=== PATIENT | male | born 1960 | race African-American/Black ===

== ENCOUNTER 2020-02-09 08:52 | Inpatient (IN) | payer OTHER ==
[~2020-02-09] VITALS: Ht 193 cm; Wt 62.9 kg
--- NOTE | 2020-02-09 09:26 | REP ---
Clinical: Altered mental status. Comparison: None Findings: Age-related atrophy and microvascular ischemic changes are appreciated. The ventricles and sulci are symmetric. Quezada-white differentiation is maintained. There is no evidence for acute intracranial hemorrhage, mass/mass effect, pathology or infarction. No extra-axial fluid collection. Calvarium is intact. Paranasal sinuses and mastoid air cells are clear. Impression: Age related atrophy and microvascular ischemic changes. No acute intracranial hemorrhage, infarction, or mass/mass effect. Electronically Signed by Corby Hilton MD 02/09/2020 09:17 A
--- NOTE | 2020-02-09 10:02 | REP ---
Clinical: Altered mental status . Comparison: 03/13/2015 . Findings: The mediastinum and cardiac silhouette are stable and within normal limits for portable technique. The lung pritchard demonstrate chronic emphysematous changes without acute consolidation, effusion, or pneumothorax. Skeletal structures are intact. Impression: Chronic advanced COPD/emphysematous changes. No acute cardiopulmonary process appreciated. Electronically Signed by Corby Hilton MD 02/09/2020 09:54 A
[2020-02-09 10:06] LABS: BASO # 0.1 10^3/uL (0.0-0.2); BASO % 0.5 % (0.0-1.0); EOS % 0.1 % (0.0-3.0); HEMATOCRIT 49.3 % (42.0-52.0); HEMOGLOBIN 16.9 g/dl (13.5-17.5); LYMPH # 0.9 10^3/uL (1.5-5.0); MEAN CORPUSCULAR HEMOGLOBIN 31.4 pg (27.0-33.0); MEAN CORPUSCULAR HGB CONC 34.3 g/dl (32.0-36.5); MEAN CORPUSCULAR VOLUME 91.6 fl (80.0-96.0); MONO # 0.7 10^3/uL (0.0-0.8); MONO % 7.6 % (0.0-5.0); NEUTROPHILS # 7.8 10^3/uL (1.5-8.5); NEUTROPHILS % 82.3 % (36.0-66.0); PLATELET COUNT, AUTOMATED 291 10^3/uL (150-450); RED BLOOD COUNT 5.38 10^6/uL (4.30-6.10); WHITE BLOOD COUNT 9.5 10^3/uL (4.0-10.0)
[2020-02-09 10:43] LABS: ACETAMINOPHEN LEVEL < 2.0 UG/ML (10.0-30.0); ALBUMIN 3.9 GM/DL (3.2-5.2); ALT/SGPT 56 U/L (12-78); BILIRUBIN,DIRECT 0.2 MG/DL (0.0-0.2); BILIRUBIN,TOTAL 0.6 MG/DL (0.2-1.0); CK-MB VALUE MASS 3.9 NG/ML (<3.6); CPK CREATINE PHOSPHOKINASE 70 U/L (39-308); ETHYL ALCOHOL (ETHANOL) 0.004 % (0.000-0.010); MB/CK RELATIVE INDEX 5.57 (< OR =4); SALICYLATE LEVEL 6.6 MG/DL (5.0-30.0); TOTAL PROTEIN 8.4 GM/DL (6.4-8.2); TROPONIN I 0.04 NG/ML (< 0.10)
[2020-02-09] MEDS ORDERED: NS 500 ML IV ONE (10:45)
[2020-02-09] MEDS ORDERED: LIDOCAINE 2% 5ML JELLY UROJET TOP ONE (11:15)
[2020-02-09] MEDS ORDERED: LIDOCAINE 2% 5ML JELLY UROJET As Ordered ONE (11:16)
[2020-02-09] MEDS ORDERED: FERR325T3 PO (12:05)
[2020-02-09] MEDS ORDERED: ASMA220A IN (12:05)
[2020-02-09] MEDS ORDERED: SPIR-10 PO (12:05)
[2020-02-09] MEDS ORDERED: OMEP-218 PO (12:05)
[2020-02-09] MEDS ORDERED: STIO1AER IN (12:05)
[2020-02-09] MEDS ORDERED: AMLO10TA5 PO (12:05)
[2020-02-09] MEDS ORDERED: VENTAER INH (12:05)
[2020-02-09] MEDS ORDERED: ACETAMINOPHEN TAB 650MG DOSE (2X325MG) PO PRN (12:15)
[2020-02-09 12:21] LABS: AMPHETAMINES LEVEL URINE NEGATIVE (NEGATIVE); BARBITURATES URINE NEGATIVE (NEGATIVE); BENZODIAZEPINES URINE NEGATIVE (NEGATIVE); CANNABINOIDS URINE POSITIVE (NEGATIVE); COCAINE METABOLITE URINE NEGATIVE (NEGATIVE); METHADONE URINE NEGATIVE (NEGATIVE); OPIATES URINE NEGATIVE (NEGATIVE); PHENCYCLIDINE URINE NEGATIVE (NEGATIVE)
[2020-02-09] MEDS ORDERED: ALBUTEROL 90 MCG/ACT 8GM HFA INHALER INH PRN (12:45)
[2020-02-09] MEDS: D5W/0.9% SODIUM CHLORIDE 1,000 ML IV SCH ×2 (13:06→20:59)
--- NOTE | 2020-02-09 13:34 | HPE ---
DATE OF ADMISSION: 02/09/2020 TIME: Approximately 12:00 p.m. CHIEF COMPLAINT: Altered mental status. HISTORY OF PRESENT ILLNESS: Mr. Mock is a 59-year-old gentleman who has a history of chronic obstructive pulmonary disease (COPD) with chronic bronchitis, hypertension, family history of diabetes. The patient is presently has acute metabolic encephalopathy associated with acute kidney injury. He is unable to provide any adequate history. I attempted to contact his , who is listed in electronic medical record for contacts, however, I have been unsuccessful. History is obtained from Dr. Hayes. Apparently, the patient has been having decrease in mental status, decrease in oral intake for the past several days, presented to the emergency room. He was found to be hemodynamically stable and afebrile. He has a chronic nonproductive cough. Chest x-ray was done in the emergency department and it showed chronic obstructive pulmonary disease (COPD) changes, no evidence of acute infiltrate. The patient underwent a CT scan of the head, which is also unremarkable. His BUN was measured and found to be 45 with creatinine of 1.6. The remainder of his laboratories are otherwise unremarkable. TSH is in the normal range. Initial troponin and CPK levels were normal. The patient's EKG showed a normal sinus rhythm with nonspecific T wave changes. ALLERGIES: No known drug allergies. HOME MEDICATIONS: Based on reconciliation list: - albuterol - Norvasc - ferrous sulfate - Asmanex - omeprazole - aldactone - Spiriva PAST MEDICAL HISTORY: Notable for: 1. Pneumonia in the past. 2. Hypertension. 3. Chronic obstructive pulmonary disease (COPD). 4. Chronic bronchitis. PAST SURGICAL HISTORY: Unknown. FAMILY HISTORY: Relevant for diabetes. REVIEW OF SYSTEMS: Could not be obtained secondary to the patient's acute toxic metabolic encephalopathy. PHYSICAL EXAMINATION: VITAL SIGNS: The patient's temperature is 97.7 degrees Fahrenheit. Blood pressure 145/101, oxygen saturation 95% on room air. Pulse is 85 and regular. GENERAL: The patient is oriented to self only. He is unable to provide any adequate history. He is an elderly gentleman who appears his stated age. He has a nonproductive cough. His breathing is nonlabored. His head is atraumatic. Pupils are symmetric and reactive to light and accommodation. No scleral icterus. Mouth shows dry oral mucosa. NECK: Supple. No jugular venous distention (JVD). No palpable lymphadenopathy. LUNGS: Appreciated bilaterally. Distant lung sounds consistent with chest x-ray findings with COPD. HEART: S1, S2. No audible murmurs, rubs or gallops. ABDOMEN: Scaphoid. Nontender, nondistended. Active bowel sounds. EXTREMITIES: No cyanosis, clubbing or edema. NEUROLOGIC: The patient is acutely encephalopathic. He withdraws all four extremities to noxious stimuli. RELEVANT LABORATORIES/DIAGNOSTICS: CT scan of the head without contrast is negative. Chest x-ray shows chronic changes of chronic obstructive pulmonary disease (COPD). No acute changes are noted. INR is 1, white count 9.5, hemoglobin 16, hematocrit 49, platelet count 291. Lactic acid is 1.9. Sodium 140, potassium 4.1, chloride 106, bicarbonate 24, BUN 45, creatinine 1.6, glucose 118, initial troponin and CPK normal, TSH is normal at 1.17. Ammonia level is 13. Total bilirubin 0.6, AST 29, ALT 66. Urinalysis did not show any evidence of infection. Urine drug screen is positive for marijuana. Salicylates, as well as acetaminophen level and alcohol levels are normal. IMPRESSION: 1. Altered mental status secondary to toxic metabolic encephalopathy associated with acute kidney injury. 2. Acute kidney injury, likely from dehydration. 3. Chronic obstructive pulmonary disease (COPD), which is compensated. 4. Marijuana use. 5. Hypertension. PLAN: The patient will be admitted to an observation status. He will be maintained a FULL CODE until we can clarify this with his . He will be hydrated with intravenous fluids. He will be kept nothing by mouth until his mental status improves. Blood cultures have been drawn and are pending in the emergency department. We will await the results of this. At this point in time, I do not think he warrants any antibiotics. The patient will be continued on his home blood pressure medications with the exception of his aldactone. The patient will be placed on heparin subcutaneously. We will repeat laboratories in the morning.
[2020-02-09 13:45] VITALS: BP 131/91
[2020-02-09] MEDS: FERROUS SULFATE 325MG TAB PO SCH ×2 (14:41→21:00)
[2020-02-09 16:00] VITALS: BP 132/87
[2020-02-09] MEDS: amLODIPine 10 MG TAB PO SCH (17:57)
[2020-02-09] MEDS: HEPARIN SOD (PORCINE) 5000UNITS/ML VIAL (J1644 PER 1000UNITS) SC SCH (20:58)
[2020-02-09] MEDS: DOCUSATE SODIUM 100 MG CAP PO SCH (21:00)
[2020-02-09 22:00] VITALS: BP 136/87
--- NOTE | 2020-02-09 22:27 | ECGEPIP ---
[facility] - ED Test Date: 2020-02-09 Pat Name: DELIA RENNER Department: Room: - Gender: Male Direct Support Professional Home Health: GERARD : 1960 Requested By: Ty Bai Order Number: [id number] Reading MD: Ty Hayes Measurements Intervals [place] Rate: 93 P: 85 AL: 148 QRS: 72 QRSD: 81 T: 90 QT: 354 QTc: 442 Interpretive Statements SINUS RHYTHM WITH OCCASIONAL VENTRICULAR PREMATURE COMPLEXES LEFT ATRIAL ENLARGEMENT MODERATE T-WAVE ABNORMALITY, CONSIDER ANTERIOR ISCHEMIA Electronically Signed on 02-09-2020 22:26:56 EDT by Ty Hayes
[2020-02-10] VITALS (7 sets, daily range): BP systolic 106–165; BP diastolic 52–97
[2020-02-10] MEDS: D5W/0.9% SODIUM CHLORIDE 1,000 ML IV SCH (05:01)
[2020-02-10 06:27] LABS: HEMATOCRIT 43.9 % (42.0-52.0); MEAN CORPUSCULAR HEMOGLOBIN 31.6 pg (27.0-33.0); MEAN CORPUSCULAR HGB CONC 33.5 g/dl (32.0-36.5); MEAN CORPUSCULAR VOLUME 94.4 fl (80.0-96.0); PLATELET COUNT, AUTOMATED 221 10^3/uL (150-450); RED BLOOD COUNT 4.65 10^6/uL (4.30-6.10); WHITE BLOOD COUNT 7.5 10^3/uL (4.0-10.0)
[2020-02-10 06:28] LABS: HEMOGLOBIN 14.7 g/dl (13.5-17.5)
[2020-02-10 06:43] LABS: ALBUMIN 3.1 GM/DL (3.2-5.2); ALT/SGPT 35 U/L (12-78); BILIRUBIN,TOTAL 0.8 MG/DL (0.2-1.0); BLOOD UREA NITROGEN 40 MG/DL (7-18); CALCIUM LEVEL 9.8 MG/DL (8.8-10.2); CARBON DIOXIDE LEVEL 24 MEQ/L (21-32); CHLORIDE LEVEL 113 MEQ/L (98-107); CREATININE FOR GFR 1.36 MG/DL (0.70-1.30); GLOMERULAR FILTRATION RATE > 60.0 (>49); GLUCOSE, FASTING 129 MG/DL (70-100); POTASSIUM SERUM 3.2 MEQ/L (3.5-5.1); SODIUM LEVEL 145 MEQ/L (136-145); TOTAL PROTEIN 7.4 GM/DL (6.4-8.2)
[2020-02-10] MEDS: amLODIPine 10 MG TAB PO SCH (08:51)
[2020-02-10] MEDS: FERROUS SULFATE 325MG TAB PO SCH ×2 (08:51→21:00)
[2020-02-10] MEDS: DOCUSATE SODIUM 100 MG CAP PO SCH ×2 (08:51→21:00)
[2020-02-10] MEDS: HEPARIN SOD (PORCINE) 5000UNITS/ML VIAL (J1644 PER 1000UNITS) SC SCH (09:17)
[2020-02-10] MEDS: KCL 20MEQ IN D5/NS 1000ML 1,000 ML IV SCH ×2 (09:22→20:23)
[2020-02-10 09:39] LABS: MAGNESIUM LEVEL 2.2 MG/DL (1.8-2.4); PHOSPHORUS LEVEL 1.9 MG/DL (2.5-4.9)
[2020-02-10] MEDS ORDERED: ACETAMINOPHEN *IV* 650 MG in IV 1 EA IV ONE (13:00)
--- NOTE | 2020-02-10 13:00 | IPNPDOC ---
Subjective Date Seen The patient was seen on 02/10/20. Subjective Chief Complaint/HPI D/w RN patient remains encephalopathic Assessment /Plan Assessment # Acute toxic metabolic encephalopathy - MRI brain to r/o stroke, if negative then will need LP and EEG to r/o non- convulsive status epilepticus - CT head done yesterday w/o acute pathology - stop hep sq for now - UDS + for THC - check folate, b12 and thiamine levels - IV thiamine daily - b.cx no growth, UA negative - no cx indicated - aspiration precautions # WHITLEY/CKD stage 2 with acute dehydration # Hypokalemia - continue IVF with KCL, creatinine + BUN slowly improving - BMP in am - Mag level normal # Chronic alcoholism - no sedatives until MS improves # COPD with chronic bronchitis - CXR normal, afebrile - d/w has not been out of the home for several weeks # DVT prophylaxis - Sebastián Spoke with Pati @ [phone] Plan/VTE VTE Prophylaxis Ordered?: Yes VTE Exclusion Mechanical Proph: N/A:VTE Prophy Ordered VTE Exclusion Pharmacological: Other (holding for possible LP in am) VS, I&O, 24H, Fishbone Vital Signs/I&O Vital Signs Date Time Temp Pulse Resp B/P (MAP) Pulse Ox O2 Delivery O2 Flow Rate FiO2 02/10/20 06:00 97.2 91 28 119/52 (74) 99 Room Air I&O- Last 24 Hours up to 6 AM 02/10/20 06:00 Intake Total 2580 ml Output Total 200 ml Balance 2380 ml Laboratory Data 24H LABS Laboratory Tests 2 02/09/20 13:14: Ammonia < 10 02/10/20 05:24: Nucleated Red Blood Cells % (auto) 0.4H, Anion Gap 8, Glomerular Filtration Rate > 60.0, Calcium Level 9.8, Phosphorus Level 1.9L, Magnesium Level 2.2, Total Bilirubin 0.8, Aspartate Amino Transf (AST/SGOT) 19, Alanine Aminotransferase (ALT/SGPT) 35, Alkaline Phosphatase 72, Total Protein 7.4, Albumin 3.1#L, [place] min/Globulin Ratio 0.72L CBC/BMP Laboratory Tests 02/10/20 05:24 Microbiology Microbiology 02/09/20 Blood Culture - Preliminary, Resulted No growth after 24 hours . All specim... 02/09/20 Blood Culture - Preliminary, Resulted No growth after 24 hours . All specim... BOB ZAFAR MD Feb 10, 2020 13:00
[2020-02-10 13:10] LABS: HEMATOCRIT 43.3 % (42.0-52.0)
--- NOTE | 2020-02-10 13:20 | REP ---
RIGHT LOWER LEG: AP and lateral views of the right lower leg are performed. Osseous structures are intact. No acute fracture or dislocation. Diffuse vascular calcifications are seen in the soft tissues. No metallic foreign body is seen in the right lower leg. Electronically Signed by Favio Quezada MD 02/10/2020 04:55 P
[2020-02-10] MEDS: THIAMINE 200MG/2ML VIAL (J3411 PER 100MG) IV SCH (16:24)
--- NOTE | 2020-02-10 16:43 | REP ---
MRI brain without contrast: History: Altered mental status. Rule out stroke. Comparison CT study of the brain is from the previous day February 09, 2020. Technique: Axial and sagittal imaging planes are utilized for T1 and T2-weighted scans. Sequences include spin-echo, fast spin echo, FLAIR, and diffusion weighted sequences. MRI findings: No bony calvarial lesion is seen. Craniocervical junction and upper cervical cord are normal in appearance. There is no evidence of intracranial hemorrhage or mass. There is generalized volume loss. Diffusion weighted scans demonstrate several punctate foci of restricted diffusion scattered bilaterally above and below the tentorium consistent with acute ischemic changes. These are noted in the frontal lobes bilaterally, the occipital lobes bilaterally, the left posterior inferior temporal lobe, and the left cerebellar hemisphere. There is an equivocal focus of restricted diffusion in the left cerebral peduncle. There are small vessel changes in the periventricular white matter. No extra-axial fluid collection or midline shift is seen. Impression: Multiple punctate foci of restricted diffusion scattered above and below the tentorium bilaterally consistent with foci of acute ischemia. Question embolic issue. No hemorrhage seen. Electronically Signed by George Savage MD 02/10/2020 04:59 P
[2020-02-10] MEDS: ASPIRIN 300 MG SUPP PR SCH (18:25)
--- NOTE | 2020-02-10 18:31 | REPVR ---
PROCEDURE INFORMATION: Exam: US Duplex Bilateral Extracranial Arteries Exam date and time: 02/10/2020 6:17 PM Age: 59 years old Clinical indication: Altered mental status/memory loss; Other: Acute stroke TECHNIQUE: Imaging protocol: Real-time Duplex ultrasound scan of the bilateral carotid and vertebral arteries combining ma scale, color Doppler and spectral waveform analysis. Bilateral exam. COMPARISON: No relevant prior studies available. FINDINGS: Right common carotid artery: Peak systolic velocity is 78 cm/s. No occlusion or stenosis. Waveforms are normal. Right internal carotid artery: Peak systolic velocity is 87 cm/s. No occlusion or stenosis. Waveforms are normal. Right ICA/CCA ratio: 2.6 Right external carotid artery: No stenosis in the origin. Right vertebral artery: Not visualized. Left common carotid artery: Peak systolic velocity is 78 cm/s. No occlusion or stenosis. Waveforms are normal. Left internal carotid artery: Peak systolic velocity is 74 cm/s. No occlusion or stenosis. Waveforms are normal. Left ICA/CCA ratio: 1.8 Left external carotid artery: Not visualized. Left vertebral artery: Unremarkable. Antegrade flow. IMPRESSION: Although there is extensive calcified and noncalcified atheromatous plaque in both common carotid arteries, carotid bulbs extending into the internal carotid arteries, there is no significant stenosis of the internal carotid arteries. There is a pipe out worker's note that the examination is quite limited due to patient motion. REFERENCES: Carotid Stenosis Reference using SRU criteria: Mild: less than 50% stenosis. ICA PSV is less than 125 cm/second and plaque or intimal thickening is visible. Moderate: 50-69% stenosis. ICA PSV is 125 to 230 cm/second and plaque is visible. Severe: 70-94% stenosis. ICA PSV is more than 230 cm/second and visible plaque and lumen narrowing are seen. Near occlusion: 95-99% stenosis. ICA PSV is variable and significant plaque and luminal narrowing are seen. Occluded: 100% stenosis. No flow identified. Electronically signed by: Yeni Maciel On 02/10/2020 18:31:03 PM
[2020-02-10] MEDS: HEPARIN SOD (PORCINE) 5000UNITS/ML VIAL (J1644 PER 1000UNITS) SQ SCH (18:48)
[2020-02-11] VITALS: BP 133/88
[2020-02-11 02:00] VITALS: BP 155/93
[2020-02-11] MEDS: HEPARIN SOD (PORCINE) 5000UNITS/ML VIAL (J1644 PER 1000UNITS) SQ SCH ×2 (03:06→16:54)
[2020-02-11 04:00] VITALS: BP 155/93
[2020-02-11] MEDS: KCL 20MEQ IN D5/NS 1000ML 1,000 ML IV SCH (04:11)
[2020-02-11 06:00] VITALS: BP 153/93
[2020-02-11 06:45] LABS: HEMATOCRIT 42.2 % (42.0-52.0); HEMOGLOBIN 13.7 g/dl (13.5-17.5); MEAN CORPUSCULAR HEMOGLOBIN 31.5 pg (27.0-33.0); MEAN CORPUSCULAR HGB CONC 32.5 g/dl (32.0-36.5); PLATELET COUNT, AUTOMATED 187 10^3/uL (150-450); RED BLOOD COUNT 4.35 10^6/uL (4.30-6.10); WHITE BLOOD COUNT 9.7 10^3/uL (4.0-10.0)
[2020-02-11 07:16] LABS: BLOOD UREA NITROGEN 28 MG/DL (7-18); CALCIUM LEVEL 9.3 MG/DL (8.8-10.2); CARBON DIOXIDE LEVEL 24 MEQ/L (21-32); CHLORIDE LEVEL 124 MEQ/L (98-107); CHOLESTEROL LEVEL 87 MG/DL (<200); GLOMERULAR FILTRATION RATE > 60.0 (>49); GLUCOSE, FASTING 118 MG/DL (70-100); HDL CHOLESTEROL 50 MG/DL (>40); LDL CHOLESTEROL 27 MG/DL (<100); NON-HDL-C 37 MG/DL; POTASSIUM SERUM 3.8 MEQ/L (3.5-5.1); SODIUM LEVEL 155 MEQ/L (136-145); TRIGLYCERIDES LEVEL 51 MG/DL (<150)
[2020-02-11] MEDS: DOCUSATE SODIUM 100 MG CAP PO SCH ×2 (09:00→21:00)
[2020-02-11] MEDS: ASPIRIN 300 MG SUPP PR SCH (11:11)
[2020-02-11] MEDS: KCL 20MEQ IN D5W 1000ML 1,000 ML IV SCH ×2 (11:11→22:17)
[2020-02-11] MEDS: THIAMINE 200MG/2ML VIAL (J3411 PER 100MG) IV SCH (11:11)
[2020-02-11] MEDS: FERROUS SULFATE 325MG TAB PO SCH ×2 (11:11→21:00)
[2020-02-11] MEDS: amLODIPine 10 MG TAB PO SCH (11:12)
--- NOTE | 2020-02-11 12:37 | IPNPDOC ---
Subjective Date Seen The patient was seen on 02/11/20. Subjective Chief Complaint/HPI Follows some simple commands this morning, like squeezing my hands b/l and moving his feet. Noted to be dragging left foot when working with PT this morning, ambulated 5 feet Assessment /Plan Assessment # Acute metabolic encephalopathy 2/2 bihemispheric Acute CVAs # Acute CVAs - MRI brain results reviewed, carotids are normal, MRA and Echo pending, can consider ANGELINA if Echo non-diagnostic - Case d/w neurologist Dr. Joiner. Due to amount of infarcts and territories involved (both posterior + anterior circulation) can consider starting anticoagulation - seen by speech and placed on NTL diet - PT/OT, will likely need rehab placement - change to oral asa - UDS + for THC - check folate, b12 and thiamine levels - IV thiamine daily - b.cx no growth, UA negative - no cx indicated - aspiration precautions # WHITLEY/CKD stage 2 with acute dehydration # Hypokalemia # Hypernatremia - change to D5W at 100 ml/hr, repeat bmp in am - hypokalemia has resolved - bun + creat are improved # Chronic alcoholism - no sedatives until MS improves # COPD with chronic bronchitis - CXR normal, afebrile - d/w has not been out of the home for several weeks # DVT prophylaxis - TEDs Dispo: Will need rehab placement at discharge Pati @ [phone], updated on 02/10/2019 Plan/VTE VTE Prophylaxis Ordered?: Yes VTE Exclusion Mechanical Proph: N/A:VTE Prophy Ordered VTE Exclusion Pharmacological: Other (holding for possible LP in am) VS, I&O, 24H, [facility] Vital Signs/I&O Vital Signs Date Time Temp Pulse Resp B/P (MAP) Pulse Ox O2 Delivery O2 Flow Rate FiO2 02/11/20 11:12 78 153/93 02/11/20 06:00 97.5 24 98 Room Air I&O- Last 24 Hours up to 6 AM 02/11/20 06:00 Intake Total 440 ml Output Total 750 ml Balance -310 ml Laboratory Data 24H LABS Laboratory Tests 2 02/10/20 12:51: Vitamin B12 Level > 2000H 02/11/20 06:13: Nucleated Red Blood Cells % (auto) 0.3H, Anion Gap 7L, Glomerular Filtration Rate > 60.0, Calcium Level 9.3, Triglycerides Level 51, Total Cholesterol 87, LDL Cholesterol 27, Non-HDL Cholesterol (LDL + VLDL) 37, Total HDL Cholesterol 50, Cholesterol/HDL Ratio 1.740 CBC/BMP Laboratory Tests 02/10/20 12:51 02/11/20 06:13 Microbiology Microbiology 02/09/20 Blood Culture - Preliminary, Resulted No Growth after 48 hours. All Specime... 02/09/20 Blood Culture - Preliminary, Resulted No Growth after 48 hours. All Specime... BOB ZAFAR MD Feb 11, 2020 12:15
[2020-02-11] MEDS ORDERED: LORazepam 2 MG/ML VIAL (J2060) IV STA (13:59)
[2020-02-11] MEDS ORDERED: LORazepam 2 MG/ML VIAL (J2060) As Ordered ONE (14:06)
--- NOTE | 2020-02-11 17:58 | REP ---
MR angiography the brain without contrast: History: Acute CVA. Comparison brain MR angiography 02/10/2020. Technique: 3-D [id number] MR angiography of the brain is acquired in the usual fashion and maximal intensity projection images were generated in rotational format about the vertical and horizontal axes. In addition, source axial T1-weighted images are viewed in cine mode. MR angiographic findings: The distal vertebral arteries are poorly seen and appear small. A short segment of basilar artery is visualized. Otherwise basilar artery does not show flow signal. There is some flow signal in the posterior cerebral and superior cerebellar vessels however this appears diminished. Findings are consistent with vertebral basilar insufficiency. The distal internal carotid arteries are patent and unremarkable. The anterior middle cerebral arteries appear patent. There is no evidence of sandoval aneurysm or arteriovenous malformation. There is some motion degradation of image quality. Impression: Vertebral basilar insufficiency with very poor visualization of flow signal in a short segment of basilar artery only. No flow signal is seen in the distal vertebral arteries. The posterior communicating arteries are patent and posterior circulation shows diminished flow but bilateral patency. Electronically Signed by George Savage MD 02/11/2020 08:46 P
[2020-02-11 18:00] VITALS: BP 110/72
[2020-02-11 22:00] VITALS: BP 150/84
[2020-02-12] MEDS: HEPARIN SOD (PORCINE) 5000UNITS/ML VIAL (J1644 PER 1000UNITS) SQ SCH (05:33)
[2020-02-12 06:00] VITALS: BP 130/86
[2020-02-12 06:39] LABS: BLOOD UREA NITROGEN 22 MG/DL (7-18); CALCIUM LEVEL 9.6 MG/DL (8.8-10.2); CARBON DIOXIDE LEVEL 22 MEQ/L (21-32); CHLORIDE LEVEL 123 MEQ/L (98-107); CREATININE FOR GFR 1.01 MG/DL (0.70-1.30); GLOMERULAR FILTRATION RATE > 60.0 (>49); GLUCOSE, FASTING 124 MG/DL (70-100); POTASSIUM SERUM 3.5 MEQ/L (3.5-5.1); SODIUM LEVEL 151 MEQ/L (136-145)
[2020-02-12] MEDS ORDERED: ASPIRIN 325 MG TAB PO SCH (09:00)
[2020-02-12] MEDS: THIAMINE 200MG/2ML VIAL (J3411 PER 100MG) IV SCH (09:03)
[2020-02-12] MEDS: FERROUS SULFATE 325MG TAB PO SCH ×3 (09:09→20:50)
[2020-02-12] MEDS: DOCUSATE SODIUM 100 MG CAP PO SCH ×3 (09:09→20:50)
[2020-02-12 10:00] VITALS: BP 149/97
--- NOTE | 2020-02-12 10:02 | IPNPDOC ---
Subjective Date Seen The patient was seen on 02/12/20. Subjective Chief Complaint/HPI Zach is afebrile. He's encephalopathic. Objective Physical Examination General Exam: Positive: No Acute Distress, Other (remains encephalopathic) Eye Exam: Negative: Sclera icteric ENT Exam: Positive: Other ENT (mucous membranes dry) Neck Exam: Negative: Supple Chest Exam: Positive: Clear to auscultation Heart Exam: Positive: Rate Normal Telemetry: Positive: No significant arrhythmia Abdomen Exam: Positive: Soft Male Exam: Negative: Edema Extremity Exam: Negative: Clubbing, Cyanosis, Edema Skin Exam: Negative: Rash Neuro Exam: Positive: Normal Speech Psych Exam: Negative: Mental status NL Assessment /Plan Assessment # Acute metabolic encephalopathy 2/2 bihemispheric Acute CVAs 2/2 vert ebrobasilar insufficiency noted on MRA brain # Acute CVAs # Vertebrobasilar insufficiency - MRI brain results reviewed, carotids are normal, Echo pending - Case d/w neurologist Dr. Joiner. Due to amount of infarcts and territories involved (both posterior + anterior circulation) will start eliquis 5 mg bid - seen by speech and placed on NTL diet - PT/OT following, recommending rehab - UDS + for THC - folate nl (562), b12 (>2000), thiamine level pending - IV thiamine daily x 5 days - b.cx no growth, UA negative, no cx indicated - aspiration precautions # WHITLEY/CKD stage 2 with acute dehydration # Hypokalemia # Hypernatremia - change to D5W at 100 ml/hr, Sodium level improving - hypokalemia has resolved # Chronic alcoholism - no sedatives until MS improves # COPD with chronic bronchitis - CXR normal, afebrile - d/w has not been out of the home for several weeks # DVT prophylaxis - TEDs - eliquis bid Dispo: Will need rehab placement at discharge Pati @ [phone], updated on 02/11/2019 @ 930am Plan/VTE VTE Prophylaxis Ordered?: Yes VTE Exclusion Mechanical Proph: N/A:VTE Prophy Ordered VTE Exclusion Pharmacological: Other (holding for possible LP in am) VS, I&O, 24H, Fishbone Vital Signs/I&O Vital Signs Date Time Temp Pulse Resp B/P (MAP) Pulse Ox O2 Delivery O2 Flow Rate FiO2 3/28/20 06:00 97.0 84 18 130/86 (101) 99 Room Air I&O- Last 24 Hours up to 6 AM 02/12/20 05:59 Intake Total 1175 ml Output Total 500 ml Balance 675 ml Laboratory Data 24H LABS Laboratory Tests 2 02/12/20 05:35: Anion Gap 6L, Glomerular Filtration Rate > 60.0, Calcium Level 9.6 CBC/BMP Laboratory Tests 02/12/20 05:35 Microbiology Microbiology 02/09/20 Blood Culture - Preliminary, Resulted No Growth after 48 hours. All Specime... 02/09/20 Blood Culture - Preliminary, Resulted No Growth after 48 hours. All Specime... BOB ZAFAR MD Feb 12, 2020 10:02
[2020-02-12] MEDS: amLODIPine 10 MG TAB PO SCH (10:13)
[2020-02-12] MEDS: KCL 20MEQ IN D5W 1000ML 1,000 ML IV SCH ×3 (10:14→22:44)
[2020-02-12] MEDS: APIXABAN 5 MG TAB (ELIQUIS) PO SCH ×2 (11:30→20:50)
[2020-02-12 14:00] VITALS: BP 150/84
[2020-02-12 18:00] VITALS: BP 150/80
[2020-02-12 22:00] VITALS: BP 122/84
[2020-02-13 02:00] VITALS: BP 110/80
[2020-02-13 06:00] VITALS: BP 108/78
[2020-02-13 06:16] LABS: HEMATOCRIT 41.1 % (42.0-52.0); HEMOGLOBIN 13.3 g/dl (13.5-17.5); MEAN CORPUSCULAR HEMOGLOBIN 31.9 pg (27.0-33.0); MEAN CORPUSCULAR HGB CONC 32.4 g/dl (32.0-36.5); MEAN CORPUSCULAR VOLUME 98.6 fl (80.0-96.0); PLATELET COUNT, AUTOMATED 150 10^3/uL (150-450); RED BLOOD COUNT 4.17 10^6/uL (4.30-6.10); WHITE BLOOD COUNT 13.3 10^3/uL (4.0-10.0)
[2020-02-13 06:34] LABS: BLOOD UREA NITROGEN 18 MG/DL (7-18); CARBON DIOXIDE LEVEL 18 MEQ/L (21-32); CHLORIDE LEVEL 118 MEQ/L (98-107); CREATININE FOR GFR 1.04 MG/DL (0.70-1.30); GLOMERULAR FILTRATION RATE > 60.0 (>49); GLUCOSE, FASTING 114 MG/DL (70-100); POTASSIUM SERUM 3.4 MEQ/L (3.5-5.1); SODIUM LEVEL 145 MEQ/L (136-145)
--- NOTE | 2020-02-13 07:41 | ECHO ---
DATE OF PROCEDURE: 02/11/2020 REFERRING PROVIDER: Dr. Braxton Muniz. REASON FOR STUDY: Cerebrovascular accident. 2D MEASUREMENTS: IVS - 1.9 cm LV - 3.7 cm LVPW - 0.9 cm LA - 2.2 cm Aorta - 3.2 cm RV - 3.1 cm IVC - 1.4 cm DOPPLER MEASUREMENT: Peak velocity across the tricuspid valve 2.3 meters per second 2D COMMENTS: 1. Technically limited study because the patient was not too cooperative during the test due to agitation. 2. Low normal global left ventricular systolic function with normal left ventricular wall thickness, and left ventricular size. The estimated ventricular systolic ejection fraction is 50-55%. 3. Normal left atrium. Normal right atrium and right ventricle. 4. The atrial septum appeared to be normal without evidence of defect or shunt. 5. Normal aortic root. 6. No pericardial effusion seen. 7. The aortic valve appeared to be minimally calcified but with normal leaflet excursion. No mitral valve, and tricuspid valve. The pulmonic valve and proximal pulmonary artery branches were not well visualized. 8. The inferior vena cava was normal in size, central venous pressure is most likely normal. DOPPLER: Only trace tricuspid regurgitation detected. Assessment of the left ventricular diastolic function was limited. IMPRESSION: 1. Low normal global left ventricular systolic function. Assessment of the left ventricular diastolic function was limited, nondiagnostic. 2. Trace tricuspid regurgitation with a normal calculated pulmonary artery systolic pressure. 3. Aortic valve sclerosis without stenosis or aortic radiation. 4. The study was technically limited as mentioned above. [facility]
--- NOTE | 2020-02-13 07:43 | REP ---
Clinical: Shortness of breath. Comparison: 02/09/2020. Findings: COPD/emphysematous changes with diffuse hyperinflation again noted. No acute consolidation, effusion, or pneumothorax. Mediastinum and cardiac silhouette are normal. Skeletal structures are intact. Impression: COPD/emphysematous disease. No acute consolidation or effusion. Electronically Signed by Corby Hilton MD 02/13/2020 07:34 A
[2020-02-13] MEDS ORDERED: KCL 10MEQ/100ML SWI (KRUN) 10 MEQ in IV 1 EA IV ONE (08:45)
[2020-02-13] MEDS: DOCUSATE SODIUM 100 MG CAP PO SCH (09:00)
[2020-02-13] MEDS: FERROUS SULFATE 325MG TAB PO SCH (09:00)
[2020-02-13] MEDS: amLODIPine 10 MG TAB NG SCH (09:00)
[2020-02-13] MEDS: APIXABAN 5 MG TAB (ELIQUIS) PO SCH (09:00)
[2020-02-13] MEDS: amLODIPine 10 MG TAB PO SCH (09:00)
[2020-02-13] MEDS: THIAMINE 200MG/2ML VIAL (J3411 PER 100MG) IV SCH (09:27)
[2020-02-13] MEDS: KCL 20MEQ IN D5W 1000ML 1,000 ML IV SCH (09:27)
[2020-02-13 10:00] VITALS: BP 120/88
[2020-02-13] MEDS ORDERED: ISOVUE-370 76% 100ML VIAL As Ordered ONE (10:47)
--- NOTE | 2020-02-13 11:50 | REP ---
Clinical: Shortness of breath. Technique: Axial contrast enhanced images from the thoracic inlet to the upper abdomen with multiplanar re-formations and MIP images using pulmonary embolus technique. 75 ml Isovue 370 intravenous contrast administered without complication. Findings: Small pulmonary embolus in the third order branch to the medial right lower lobe (series 401; images 137 - 153) noted. Small forming areas of consolidation in the bilateral lower lobes are appreciated. Underlying chronic advanced COPD/emphysematous disease with bronchiectasis and scattered scarring noted. No effusion. No pneumothorax. Mediastinum demonstrates atherosclerotic changes to the thoracic aorta and coronary arteries without aortic aneurysm or dissection. No cardiomegaly or pericardial effusion. Mild reactive mediastinal and hilar lymph nodes noted. Surrounding musculoskeletal structures without acute focal abnormality. Impression: 1. Small pulmonary embolus in the third order branch to the medial right lower lobe along with mild bibasilar consolidations. 2. Advanced chronic COPD/emphysematous changes. Electronically Signed by Corby Hilton MD 02/13/2020 11:42 A
[2020-02-13] MEDS ORDERED: HEPARIN DRIP 25,000 UNITS in IV 1 EA IV SCH ×2 (12:07→19:45)
[2020-02-13] MEDS ORDERED: HEPARIN SOD (PORCINE) 5000UNITS/ML VIAL (J1644 PER 1000UNITS) IV ONE (12:15)
[2020-02-13] MEDS ORDERED: HALOPERIDOL 5MG/ML VIAL (J1630 PER 1) IV PRN (12:30)
--- NOTE | 2020-02-13 12:43 | IPNPDOC ---
Subjective Date Seen The patient was seen on 02/13/20. Subjective Chief Complaint/HPI Not alert enough to take pills. Currently on 3 liters nc, oxygen requirements increased during the night, has leukocytosis this morning on am labs. Remains encephalopathic with limited response. returned to see patient at 1 pm. Found him sitting up on side of bed trying to pull off his left hand mitt. He's moving all 4 ext, more awake but remains agitated. Objective Physical Examination General Exam: Positive: Mild Distress, Other (encephalopathic) Eye Exam: Positive: PERRLA (unable to test for accomodation); Negative: Sclera icteric ENT Exam: Positive: Pharynx Normal (mucosa dry), Other ENT (mucous membranes dry) Neck Exam: Negative: Supple Chest Exam: Positive: Clear to auscultation Heart Exam: Positive: Rate Normal Telemetry: Positive: No significant arrhythmia Abdomen Exam: Positive: Normal bowel sounds, Soft Male Exam: Negative: Edema Extremity Exam: Negative: Clubbing, Cyanosis, Edema Skin Exam: Negative: Rash Neuro Exam: Positive: Other (exam limited by encephalopathy); Negative: Normal Gait, Normal Speech Psych Exam: Positive: Mental status NL (encephalopathic) Assessment /Plan Assessment # Acute metabolic encephalopathy 2/2 bihemispheric Acute CVAs 2/2 vertebr obasilar insufficiency noted on MRA brain # Acute CVAs # Vertebrobasilar insufficiency - MRI brain results reviewed, carotids are normal, Echo limited by level of cooperation but overall has pLVEF w/o significant VHD - Case d/w neurologist Dr. Joiner. Due to amount of infarcts and territories involved (both posterior + anterior circulation) would recommend OAC - seen by speech and placed on NTL diet, but mentation has not improved well enough to tolerate diet. Will place NGT for oral meds and nutrition. If does not improve may require PegTube - aspiration precautions - CT head in am - continue IVFs - 2-point wrist restraints - Haldol IV prn - sitter at bedside # Acute hypoxic respiratory failure (multifactorial 2/2 Acute PE and b/l CAP with developing consolidations likely POA and has progressed but not visualized on serial CXRs due to advanced COPD) # Chronic COPD w/o exacerbation # B/L CAP with AHRF and leukocytosis - CT chest reviewed and shows b/l developing consolidations and RLL PE, will start zosyn, repeat CBC in am - CXR done overnight appears stable - start heparin gtt, stop eliquis due to poor oral intake # WHITLEY/CKD stage 2 with acute dehydration # Hypokalemia # Hypernatremia - hypernatremia has resolved - hypokalemia has resolved, corrections as needed # Chronic alcoholism - no sedatives until MS improves # DVT prophylaxis - TEDs - hep gtt Dispo: Will need rehab placement at discharge Pati @ [phone], updated on 02/12/2019 @ 1234 pm about findings of CT chest and need to continue anticoagulation with risk of possible CVA hemorrhagic transformation Plan/VTE VTE Prophylaxis Ordered?: Yes VTE Exclusion Mechanical Proph: N/A:VTE Prophy Ordered VTE Exclusion Pharmacological: IV Heparin Therapy VS, I&O, 24H, Fishbone Vital Signs/I&O Vital Signs Date Time Temp Pulse Resp B/P (MAP) Pulse Ox O2 Delivery O2 Flow Rate FiO2 02/13/20 10:00 98.5 107 21 120/88 (99) 100 Nasal Cannula 3.0 I&O- Last 24 Hours up to 6 AM 02/13/20 05:59 Intake Total 840 ml Balance 840 ml Laboratory Data 24H LABS Laboratory Tests 2 02/13/20 06:04: Nucleated Red Blood Cells % (auto) 0.5H, Anion Gap 9, Glomerular Filtration Rate > 60.0, Calcium Level 9.0 CBC/BMP Laboratory Tests 02/13/20 06:04 Microbiology Microbiology 02/09/20 Blood Culture - Preliminary, Resulted No Growth after 72 hours. All specime... 02/09/20 Blood Culture - Preliminary, Resulted No Growth after 72 hours. All specime... BOB ZAFAR MD Feb 13, 2020 11:33
[2020-02-13 12:48] LABS: HEMATOCRIT 40.1 % (42.0-52.0); HEMOGLOBIN 13.2 g/dl (13.5-17.5); MEAN CORPUSCULAR HEMOGLOBIN 31.9 pg (27.0-33.0); MEAN CORPUSCULAR HGB CONC 32.9 g/dl (32.0-36.5); MEAN CORPUSCULAR VOLUME 96.9 fl (80.0-96.0); PLATELET COUNT, AUTOMATED 162 10^3/uL (150-450); RED BLOOD COUNT 4.14 10^6/uL (4.30-6.10); WHITE BLOOD COUNT 13.5 10^3/uL (4.0-10.0)
[2020-02-13 14:00] VITALS: BP 138/90
[2020-02-13] MEDS: PIPERACILLIN/TAZOBACTAM SOD 4.5 GM in D5W MINI-BAG PLUS 50 ML IV SCH ×2 (15:06→18:50)
--- NOTE | 2020-02-13 17:24 | REP ---
Clinical: Nasogastric tube placement. Comparison: 02/13/2020. Findings: Nasogastric tube extends below left hemidiaphragm. Mediastinum and cardiac silhouette are stable. Lung pritchard demonstrate chronic COPD/emphysematous changes with scattered scarring and subtle superimposed basilar infiltrates. No effusion. No pneumothorax. Impression: 1. Subtle small bibasilar infiltrates. 2. Chronic COPD/emphysematous disease. 3. Nasogastric tube extends below left hemidiaphragm. Electronically Signed by Corby Hilton MD 02/13/2020 05:16 P
[2020-02-13 18:08] VITALS: BP 119/80
[2020-02-13] MEDS ORDERED: ACETAMINOPHEN TAB 650MG DOSE (2X325MG) NG PRN (20:15)
[2020-02-13] MEDS: DOCUSATE SOD LIQ 100MG/10ML UDC NG SCH (20:54)
[2020-02-13] MEDS: FERROUS SULFATE 300MG/5ML UDC LIQUID NG SCH (20:54)
[2020-02-13] MEDS ORDERED: FERROUS SULFATE 325MG TAB NG SCH (21:00)
[2020-02-13 22:00] VITALS: BP 118/81
[2020-02-13] MEDS: HEPARIN SOD (PORCINE) 5000UNITS/ML VIAL (J1644 PER 1000UNITS) IV PRN (22:17)
[2020-02-14] VITALS (76 sets, daily range): BP systolic 70–163; BP diastolic 40–96
[2020-02-14 00:21] LABS: HEMATOCRIT 42.3 % (42.0-52.0); HEMOGLOBIN 14.4 g/dl (13.5-17.5)
[2020-02-14] MEDS: PIPERACILLIN/TAZOBACTAM SOD 4.5 GM in D5W MINI-BAG PLUS 50 ML IV SCH ×2 (01:17→06:38)
[2020-02-14 04:52] LABS: BASO % 0.2 % (0.0-1.0); EOS % 0.1 % (0.0-3.0); HEMATOCRIT 39.1 % (42.0-52.0); HEMOGLOBIN 12.9 g/dl (13.5-17.5); LYMPH # 1.1 10^3/uL (1.5-5.0); LYMPH % 6.1 % (24.0-44.0); MEAN CORPUSCULAR HEMOGLOBIN 31.5 pg (27.0-33.0); MEAN CORPUSCULAR VOLUME 95.4 fl (80.0-96.0); MONO # 2.5 10^3/uL (0.0-0.8); MONO % 13.5 % (0.0-5.0); NEUTROPHILS # 14.5 10^3/uL (1.5-8.5); NEUTROPHILS % 79.3 % (36.0-66.0); PLATELET COUNT, AUTOMATED 153 10^3/uL (150-450); WHITE BLOOD COUNT 18.3 10^3/uL (4.0-10.0)
[2020-02-14 05:25] LABS: BLOOD UREA NITROGEN 32 MG/DL (7-18); CALCIUM LEVEL 9.1 MG/DL (8.8-10.2); CARBON DIOXIDE LEVEL 21 MEQ/L (21-32); CHLORIDE LEVEL 113 MEQ/L (98-107); CREATININE FOR GFR 1.34 MG/DL (0.70-1.30); GLOMERULAR FILTRATION RATE > 60.0 (>49); GLUCOSE, FASTING 131 MG/DL (70-100); POTASSIUM SERUM 2.9 MEQ/L (3.5-5.1); SODIUM LEVEL 146 MEQ/L (136-145)
[2020-02-14] MEDS: HEPARIN SOD (PORCINE) 5000UNITS/ML VIAL (J1644 PER 1000UNITS) IV PRN (05:27)
[2020-02-14] MEDS: amLODIPine 10 MG TAB NG SCH (08:00)
[2020-02-14] MEDS: DOCUSATE SOD LIQ 100MG/10ML UDC NG SCH (08:01)
[2020-02-14] MEDS: FERROUS SULFATE 300MG/5ML UDC LIQUID NG SCH (08:01)
[2020-02-14] MEDS: THIAMINE 200MG/2ML VIAL (J3411 PER 100MG) IV SCH (08:01)
[2020-02-14] MEDS: KCL 20MEQ IN D5W 1000ML 1,000 ML IV SCH (08:08)
[2020-02-14] MEDS ORDERED: POTASSIUM CHLORIDE 10% LIQ 20 MEQ/15 ML UDC PO SCH (09:00)
[2020-02-14] MEDS ORDERED: FOLIC ACID 1 MG TAB PO SCH (09:00)
[2020-02-14] MEDS ORDERED: MULTIVITAMINS/MINERALS THERAP 1 TAB PO SCH (09:00)
[2020-02-14] MEDS ORDERED: PANTOPRAZOLE 40MG VIAL (C9113 PER 1) IV SCH (09:00)
[2020-02-14] MEDS ORDERED: LORazepam 2 MG TAB PO PRN (10:00)
--- NOTE | 2020-02-14 10:00 | REP ---
CT BRAIN WITHOUT CONTRAST: HISTORY: Altered mental status. Rule out hemorrhagic transformation. Comparison head CT study February 09, 2020. Comparison MRI brain February 10, 2020. CT FINDINGS: Digital preliminary clipper and turner radiograph demonstrates a nasogastric tube. Bone window settings are unremarkable. There is generalized cerebral atrophy again noted. Small vessel changes are visible in the periventricular white matter. There is no evidence of intracranial hemorrhage. No new infarction is visible by CT. No extra-axial fluid collection or mass. IMPRESSION: CT study is unchanged from February 09, 2020. There is no evidence of intracranial hemorrhage. Electronically Signed by George Savage MD 02/14/2020 03:36 P
[2020-02-14 12:27] LABS: MAGNESIUM LEVEL 1.5 MG/DL (1.8-2.4)
--- NOTE | 2020-02-14 12:28 | IPNPDOC ---
Subjective Date Seen The patient was seen on 02/14/20. Subjective Chief Complaint/HPI Zach remains encephalopathic, sitter at the bedside. No longer requiring oxygen, NGT remains in place. Labored breathing. Objective Physical Examination General Exam: Positive: Other (acutely encephalopathic, uncooperative) Eye Exam: Positive: PERRLA (unable to test for accomodation); Negative: Sclera icteric ENT Exam: Positive: Pharynx Normal (mucosa dry), Other ENT (mucous membranes dry) Neck Exam: Negative: Supple Chest Exam: Positive: Clear to auscultation Heart Exam: Positive: Rate Normal, Normal S1, Normal S2; Negative: Murmurs Telemetry: Positive: No significant arrhythmia Abdomen Exam: Positive: Normal bowel sounds, Soft Male Exam: Negative: Edema Extremity Exam: Negative: Clubbing, Cyanosis, Edema Skin Exam: Negative: Rash Neuro Exam: Positive: Other (exam limited by encephalopathy, but moving all 4 ext to noxious stimuli); Negative: Normal Gait, Normal Speech Psych Exam: Positive: Mental status NL (encephalopathic) Assessment /Plan Assessment # Acute metabolic encephalopathy multifactorial (2/2 bihemispheric Acute CVAs 2/2 vertebrobasilar insufficiency noted on MRA brain, Thiamine deficiency/Wernicke's encephalopathy, and Acute alcohol withdrawal syndrome) # Acute CVAs # Vertebrobasilar insufficiency # Acute thiamine deficiency/Wernicke's encephalopathy - MRI brain results reviewed, carotids are normal, Echo limited by level of cooperation but overall has pLVEF w/o any significant VHD - Case d/w neurologist Dr. Joiner over the phone. Due to amount of infarcts and territories involved (both posterior + anterior circulation) would recommend OAC - seen by speech and placed on NTL diet, but mentation has not improved well enough to tolerate diet. NGT for oral meds and nutrition. Will start TFs today. If does not improve may require PegTube - aspiration precautions - CT head (02/13) stable, shows no hemorrhagic transformation - increase d5W with KCL 20 meQ to 100 ml/hr - 2-point wrist restraints - Haldol IV prn - sitter at bedside - start CIWA scale and ativan via NGT # Acute hypoxic respiratory failure (multifactorial 2/2 Acute PE and b/l CAP with developing consolidations likely POA and has progressed but not visualized on serial CXRs due to advanced COPD) - resolved # Chronic COPD w/o exacerbation # B/L CAP with AHRF and leukocytosis - CT chest reviewed and shows b/l developing consolidations and RLL PE, continue zosyn, repeat CBC this morning shows increased WBC count. - heparin gtt due to poor oral intake, resume eliquis 10 mg bid x 7 days, then 5 mg bid once able to take oral meds # WHITLEY/CKD stage 2 with acute dehydration # Hypokalemia # Hypernatremia - mild hypernatremia with reduction in IVF rate yesterday, increase rate today - start liquid K 40 meQ tid via NGT, repeat Mag level (previously normal) and recheck K this afternoon following supplementation # Chronic alcoholism # Thiamine deficiency # Wernicke's encephalopathy # Acute ETOH withdrawal - thiamine 500 mg IV tid x 2 days, then 250 mg IV x 5 days - ciwa, po ativan # DVT prophylaxis - hep gtt Dispo: Will need rehab placement at discharge Pati @ [phone], updated on 02/13/2019 @ 1221 pm about findings of thiamine deficiency, and plan to start CIWA scale and etoh withdrawal protocol, and TFs today Plan/VTE VTE Prophylaxis Ordered?: Yes VTE Exclusion Mechanical Proph: N/A:VTE Prophy Ordered VTE Exclusion Pharmacological: IV Heparin Therapy VS, I&O, 24H, Fishbone Vital Signs/I&O Vital Signs Date Time Temp Pulse Resp B/P (MAP) Pulse Ox O2 Delivery O2 Flow Rate FiO2 02/14/20 10:00 97.2 96 20 110/60 (77) 95 Room Air 02/13/20 14:00 I&O- Last 24 Hours up to 6 AM 02/14/20 06:00 Intake Total 890 ml Output Total 0 ml Balance 890 ml Laboratory Data 24H LABS Laboratory Tests 2 02/13/20 12:29: Nucleated Red Blood Cells % (auto) 0.4H, Activated Partial Thromboplast Time 38.4 02/13/20 21:12: Activated Partial Thromboplast Time 45.0H 02/14/20 04:45: Nucleated Red Blood Cells % (auto) 1.0H, Activated Partial Thromboplast Time 46.7H, Immature Granulocyte % (Auto) 0.8, Neutrophils (%) (Auto) 79.3H, Lymphocytes (%) (Auto) 6.1L, Monocytes (%) (Auto) 13.5H, Eosinophils (%) (Auto) 0.1, Basophils (%) (Auto) 0.2, Neutrophils # (Auto) 14.5H, Lymphocytes # (Auto) 1.1L, Monocytes # (Auto) 2.5H, Eosinophils # (Auto) 0.0, Basophils # (Auto) 0.0, Anion Gap 12, Glomerular Filtration Rate > 60.0, Calcium Level 9.1 02/14/20 10:52: Activated Partial Thromboplast Time 64.7H CBC/BMP Laboratory Tests 02/13/20 12:29 02/14/20 00:12 02/14/20 04:45 Microbiology Microbiology 02/09/20 Blood Culture - Final, Complete NO GROWTH AFTER 5 DAYS 02/09/20 Blood Culture - Final, Complete NO GROWTH AFTER 5 DAYS BOB ZAFAR MD Feb 14, 2020 12:28
[2020-02-14] MEDS ORDERED: flumazeniL 0.5 MG/5 ML VIAL As Ordered ONE (13:19)
[2020-02-14] MEDS ORDERED: NS 1,000 ML IV ONE (13:30)
[2020-02-14] MEDS ORDERED: PROTAMINE SULF 50MG/5ML VIAL (J2720 PER 10MG) IV STA (13:34)
[2020-02-14] MEDS ORDERED: MIDAZOLAM INJ 2MG/2ML VIAL (J2250 PER 1MG) IV STA (13:41)
[2020-02-14] MEDS ORDERED: MIDAZOLAM INJ 2MG/2ML VIAL (J2250 PER 1MG) As Ordered ONE ×3 (13:42→14:06)
[2020-02-14] MEDS ORDERED: ROCURONIUM BROMIDE 50 MG/5 ML VIAL As Ordered ONE (13:49)
[2020-02-14] MEDS ORDERED: LIDOCAINE 2% 100MG/5ML SDV (FOR ANES.) As Ordered ONE (13:49)
[2020-02-14] MEDS ORDERED: propofoL 200 MG/20 ML VIAL As Ordered ONE (13:49)
[2020-02-14] MEDS ORDERED: fentaNYL 100 MCG/2 ML INJECTION (J3010) As Ordered ONE ×2 (13:50→14:17)
[2020-02-14] MEDS ORDERED: PROPOFOL 1,000 MG/100 ML VIAL As Ordered ONE (14:11)
--- NOTE | 2020-02-14 14:21 | REP ---
CHEST, PORTABLE: AP portable view of the chest is performed and compared to a prior study of 02/13/2020. Right base infiltrate is unchanged. Left lung is clear. The heart is normal in size. Mediastinal silhouette is unchanged. Endotracheal tube is seen with the tip about 4 cm above the eddie. A nasogastric tube is seen traversing into the stomach. Electronically Signed by Favio Quezada MD 02/14/2020 03:20 P
[2020-02-14] MEDS: propofoL 1,000 MG in IV 1 EA IV SCH ×2 (14:22→23:58)
[2020-02-14 14:40] LABS: HEMATOCRIT 40.4 % (42.0-52.0); HEMOGLOBIN 13.2 g/dl (13.5-17.5); MEAN CORPUSCULAR HEMOGLOBIN 31.2 pg (27.0-33.0); MEAN CORPUSCULAR HGB CONC 32.7 g/dl (32.0-36.5); MEAN CORPUSCULAR VOLUME 95.5 fl (80.0-96.0); PLATELET COUNT, AUTOMATED 166 10^3/uL (150-450); RED BLOOD COUNT 4.23 10^6/uL (4.30-6.10); WHITE BLOOD COUNT 15.9 10^3/uL (4.0-10.0)
[2020-02-14 14:45] LABS: ABG BASE EXCESS -6.8 (-2.0-2.0); ABG HCO3 18.5 MEQ/L (22.0-26.0); ABG O2 SATURATION 99.9 % (95.0-99.0); ABG PARTIAL PRESSURE CO2 36.5 mmHg (35.0-45.0); ABG PARTIAL PRESSURE O2 346.5 mmHg (75.0-100.0); ABG TOTAL CO2 19.6 MEQ/L (23.0-31.0); ABG pH (ARTERIAL) 7.322 UNITS (7.350-7.450)
[2020-02-14 14:55] LABS: INR 1.34; PROTHROMBIN TIME 16.3 SECONDS (11.8-14.0)
[2020-02-14 14:56] LABS: PARTIAL THROMBOPLASTIN TIME 39.7 SECONDS (25.0-38.4)
[2020-02-14] MEDS ORDERED: MIDAZOLAM INJ 2MG/2ML VIAL (J2250 PER 1MG) IV PRN (15:00)
[2020-02-14] MEDS ORDERED: fentaNYL 100 MCG/2 ML INJECTION (J3010) IV PRN (15:00)
[2020-02-14] MEDS: PANTOPRAZOLE SODIUM 40 MG in D5W 50 ML IV SCH ×3 (15:01→22:39)
[2020-02-14 15:14] LABS: ALBUMIN 1.9 GM/DL (3.2-5.2); BILIRUBIN,TOTAL 0.7 MG/DL (0.2-1.0); CALCIUM LEVEL 8.7 MG/DL (8.8-10.2); CREATININE FOR GFR 1.98 MG/DL (0.70-1.30); GLOMERULAR FILTRATION RATE 44.7 (>49); POTASSIUM SERUM 3.4 MEQ/L (3.5-5.1); TOTAL PROTEIN 5.7 GM/DL (6.4-8.2)
[2020-02-14] MEDS ORDERED: fentaNYL 100 MCG/2 ML INJECTION (J3010) IV ONE (15:15)
[2020-02-14] MEDS ORDERED: MIDAZOLAM INJ 2MG/2ML VIAL (J2250 PER 1MG) IV ONE ×2 (15:15→18:15)
[2020-02-14 15:31] LABS: MAGNESIUM LEVEL 1.7 MG/DL (1.8-2.4)
[2020-02-14] MEDS ORDERED: GLUCAGON INJ 1MG VIAL SC PRN (15:45)
[2020-02-14] MEDS ORDERED: GLUCOSE 4GM CHEW TABLET PO PRN (15:45)
[2020-02-14] MEDS ORDERED: HumaLOG INSULIN (NovoLOG) PER UNIT SC SCH (15:45)
[2020-02-14] MEDS ORDERED: DEXTROSE 50% 50 ML SYRINGE IV PRN (15:45)
[2020-02-14] MEDS ORDERED: OCTREOTIDE ACETATE 1,200 MCG in NS 238.8 ML IV SCH (16:00)
[2020-02-14] MEDS ORDERED: MAG SULF 1GM/100ML (MAG RUN) 1 GM in IV 1 EA IV ONE (16:00)
[2020-02-14 16:20] LABS: PHOSPHORUS LEVEL 5.8 MG/DL (2.5-4.9)
[2020-02-14] MEDS ORDERED: ePHEDrine INJ 50 MG/ML VIAL As Ordered ONE (16:23)
[2020-02-14] MEDS ORDERED: SODIUM BICARBONATE 4.2% INJ 10 ML SYRINGE ONE (16:47)
[2020-02-14] MEDS ORDERED: THIAMINE 200MG/2ML VIAL (J3411 PER 100MG) IV SCH (17:00)
--- NOTE | 2020-02-14 17:08 | ROOR ---
Patient Name: Zach Mock Procedure Date: 02/14/2020 1:47 PM Date of : 1960 Age: 59 Gender: Male Note Status: Finalized Procedure: Upper GI endoscopy Indications: Acute post hemorrhagic anemia, Hematemesis Providers: Tevin VAZQUEZ MD Referring MD: 2. Inpatient 2. Inpatient Requesting Provider: Medicines: Monitored Anesthesia Care Complications: No immediate complications. Procedure: Pre-Anesthesia Assessment: - The heart rate, respiratory rate, oxygen saturations, blood pressure, adequacy of pulmonary ventilation, and response to care were monitored throughout the procedure. The Endoscope was introduced through the mouth, and advanced to the second part of duodenum. The upper GI endoscopy was accomplished without difficulty. The patient tolerated the procedure well. Findings: Four non-obstructing deeply cratered duodenal ulcers. Two of the ulcers with adherent blot clots. Removal of clots revealed pigmented material in ulcer beds. These ulcers were found in the first portion of the duodenum and in the second portion of the duodenum. The largest lesion was 15 mm in largest dimension. This was biopsied with a cold forceps for histology. Moderately severe esophagitis with no bleeding was found in the lower third of the esophagus. The exam was otherwise without abnormality. Biopsies were taken with a cold forceps in the gastric antrum for Helicobacter pylori testing. Impression: - Multiple large duodenal ulcers with adherent fresh blood clots. The clots were suctioned off, revealing pigmented material in the ulcer bed. No active bleeding seen at this time Biopsied. - Moderately severe esophagitis. - The examination was otherwise normal. - Biopsies were taken with a cold forceps for Helicobacter pylori testing. - Esophageal varices were not seen. - Gastric varices were not seen. Recommendation: - Observe patient's clinical course. Transfuse PRBC PRN. - Use a proton pump inhibitor IV or PO/NGT. - Use sucralfate suspension 1 gram PO/NGT QID for 1 week. Tevin Vazquez MD Tevin VAZQUEZ MD 02/14/2020 5:08:09 PM Electronically signed by Tevin VAZQUEZ MD Number of Addenda: 0 Note Initiated On: 02/14/2020 1:47 PM Estimated Blood Loss: Estimated blood loss: none.
[2020-02-14] MEDS: PIPERACILLIN/TAZOBACTAM SOD 3.375 GM in D5W MINI-BAG PLUS 50 ML IV SCH ×2 (17:21→21:21)
[2020-02-14] MEDS: KCL 20MEQ IN 100ML SWI (KRUN) 20 MEQ in IV 1 EA IV SCH ×4 (17:21→19:36)
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
[2020-02-14] MEDS: THIAMINE INJection 500 MG in NS 100 ML IV SCH (17:35)
[2020-02-14] MEDS: SUCRALFATE SUSP 1GM/10ML UD NG SCH ×2 (17:35→23:58)
[2020-02-14] MEDS: HumaLOG INSULIN (NovoLOG) PER UNIT SC SCH ×2 (17:57→23:58)
[2020-02-14] MEDS ORDERED: ePHEDrine SULFATE 25 MG/5 ML(5MG/ML) SYRINGE ONE (18:13)
[2020-02-14] MEDS ORDERED: PHENYLephrine HCL 500 MCG/5 ML (100MCG/ML) SYRINGE (J2370) ONE (18:13)
[2020-02-14] MEDS ORDERED: NOREPINEPHRINE BITARTRATE 8 MG in D5W 492 ML IV SCH (18:15)
[2020-02-14] MEDS: D5W/0.45% SODIUM CHLORIDE 1,000 ML IV SCH (18:51)
[2020-02-14] MEDS ORDERED: MULTIVITAMIN ADULT IV SCH (19:00)
[2020-02-14] MEDS ORDERED: D5W IV SCH (19:00)
[2020-02-14] MEDS ORDERED: SODIUM CHLORIDE IV SCH (19:00)
[2020-02-14] MEDS: CHLORHEXIDINE GLUCONATE 0.12 % 15ML UDC (PERIDEX ORAL RINSE) MT SCH (19:35)
[2020-02-14 20:15] LABS: BASO % 0.2 % (0.0-1.0); EOS % 0.1 % (0.0-3.0); HEMATOCRIT 30.3 % (42.0-52.0); HEMOGLOBIN 10.3 g/dl (13.5-17.5); LYMPH % 8.5 % (24.0-44.0); MEAN CORPUSCULAR HEMOGLOBIN 31.2 pg (27.0-33.0); MEAN CORPUSCULAR VOLUME 91.8 fl (80.0-96.0); MONO # 1.4 10^3/uL (0.0-0.8); MONO % 11.6 % (0.0-5.0); NEUTROPHILS # 9.6 10^3/uL (1.5-8.5); NEUTROPHILS % 78.7 % (36.0-66.0); PLATELET COUNT, AUTOMATED 177 10^3/uL (150-450); WHITE BLOOD COUNT 12.2 10^3/uL (4.0-10.0)
--- NOTE | 2020-02-14 20:23 | RO ---
DATE OF PROCEDURE: 02/14/2020 PREPROCEDURE DIAGNOSIS: Hypotension secondary to acute GI bleed POSTPROCEDURE DIAGNOSIS: Hypotension secondary to acute GI bleed PROCEDURE: Central line insertion. PROCEDURE BEAUTY CULTURIST APPRENTICE: Dr. Nicol Lawrence, PGY-1 ATTENDING PHYSICIAN: Dr. Ruth Moore, in attendance. INDICATION: Vasopressor administration, vascular access. CONSENT: Consent was obtained from the patient prior to the procedure. Indications, risks, and benefits were explained at length. DESCRIPTION OF PROCEDURE: The [facility] central line insertion practices form was completed by an independent observed starting first with the hand wash prior to starting sterile technique. A time-out was performed. My hands were washed immediately prior to the procedure. I wore a surgical cap, mask with protective eyewear, sterile gown and sterile gloves throughout the procedure. The right inguinal region was prepped using chlorhexidine scrub and draped in a sterile fashion using full drape and sterile probe cover employed. The right femoral vein was identified using ultrasound. Anesthesia was achieved using 1% lidocaine. Visualizing the femoral vein via ultrasound throughout the procedure, the introducer needle was inserted medial to the femoral artery, inferior to the inguinal crease, and into the femoral vein. Venous blood was withdrawn. The syringe was removed and a guidewire was advanced through the introducer needle. A small incision was made at the skin surface with a scalpel, and the introducer needle was exchanged for a dilator over the guidewire. After appropriate dilation was obtained, dilator was exchanged for over the wire for a triple lumen central venous catheter. The wire was removed, and the catheter was sutured in place. A sterile SorbaView shield was placed over the catheter at the insertion site. The patient tolerated the procedure without any hemodynamic compromise. At the time of procedure completion, all ports aspirated and flushed properly. Estimated blood loss: Less than 5 mL. Ruth Jeffries, supervised and was present for the entirety of the procedure. [facility] HOSPITALDarren
[2020-02-14 20:26] LABS: INR 1.18; PROTHROMBIN TIME 14.7 SECONDS (11.8-14.0)
[2020-02-14 20:27] LABS: PARTIAL THROMBOPLASTIN TIME 35.6 SECONDS (25.0-38.4)
[2020-02-14 20:33] LABS: CALCIUM LEVEL 9.1 MG/DL (8.8-10.2); CREATININE FOR GFR 1.8 MG/DL (0.70-1.30); GLOMERULAR FILTRATION RATE 49.9 (>49); MAGNESIUM LEVEL 2.1 MG/DL (1.8-2.4); PHOSPHORUS LEVEL 3.8 MG/DL (2.5-4.9); POTASSIUM SERUM 3.5 MEQ/L (3.5-5.1)
[2020-02-15] VITALS (49 sets, daily range): BP systolic 80–123; BP diastolic 56–78; O2SAT 99
[2020-02-15] MEDS: THIAMINE INJection 500 MG in NS 100 ML IV SCH ×3 (01:10→17:38)
[2020-02-15] MEDS: PANTOPRAZOLE SODIUM 40 MG in D5W 50 ML IV SCH ×4 (03:53→20:00)
[2020-02-15] MEDS: PIPERACILLIN/TAZOBACTAM SOD 3.375 GM in D5W MINI-BAG PLUS 50 ML IV SCH ×4 (03:53→21:03)
[2020-02-15 04:34] LABS: BASO % 0.2 % (0.0-1.0); EOS # 0.1 10^3/uL (0.0-0.5); EOS % 0.9 % (0.0-3.0); HEMATOCRIT 30.1 % (42.0-52.0); HEMOGLOBIN 10.1 g/dl (13.5-17.5); LYMPH # 0.9 10^3/uL (1.5-5.0); LYMPH % 10.2 % (24.0-44.0); MEAN CORPUSCULAR HEMOGLOBIN 30.9 pg (27.0-33.0); MEAN CORPUSCULAR HGB CONC 33.6 g/dl (32.0-36.5); MONO # 0.8 10^3/uL (0.0-0.8); MONO % 8.8 % (0.0-5.0); NEUTROPHILS # 7.3 10^3/uL (1.5-8.5); NEUTROPHILS % 79.3 % (36.0-66.0); PLATELET COUNT, AUTOMATED 166 10^3/uL (150-450); RED BLOOD COUNT 3.27 10^6/uL (4.30-6.10); WHITE BLOOD COUNT 9.2 10^3/uL (4.0-10.0)
[2020-02-15 04:52] LABS: CALCIUM LEVEL 8.6 MG/DL (8.8-10.2); CREATININE FOR GFR 1.6 MG/DL (0.70-1.30); GLOMERULAR FILTRATION RATE 57.2 (>49); POTASSIUM SERUM 3.1 MEQ/L (3.5-5.1)
[2020-02-15] MEDS: D5W/0.45% SODIUM CHLORIDE 1,000 ML IV SCH ×2 (05:21→18:01)
[2020-02-15] MEDS ORDERED: KCL 20MEQ IN 100ML SWI (KRUN) 20 MEQ in IV 1 EA IV ONE ×2 (05:30)
[2020-02-15 05:46] LABS: ABG BASE EXCESS 0.3 (-2.0-2.0); ABG HCO3 24.8 MEQ/L (22.0-26.0); ABG O2 SATURATION 96.6 % (95.0-99.0); ABG PARTIAL PRESSURE CO2 39.8 mmHg (35.0-45.0); ABG STANDARD HCO3 24.7 MEQ/L (22.0-26.0); ABG TOTAL CO2 26.1 MEQ/L (23.0-31.0); ABG pH (ARTERIAL) 7.413 UNITS (7.350-7.450)
[2020-02-15] MEDS: SUCRALFATE SUSP 1GM/10ML UD NG SCH ×3 (05:55→18:01)
[2020-02-15] MEDS: HumaLOG INSULIN (NovoLOG) PER UNIT SC SCH ×3 (05:56→18:00)
--- NOTE | 2020-02-15 08:15 | REP ---
Portable chest x-ray: Single view. History: Intubated patient. Comparison study: February 14, 2020. Findings: Monitoring electrodes overlie the chest. There are interstitial infiltrates in the right infrahilar region unchanged from yesterday's radiograph. There are is a dense interstitial infiltrate in the left base today which appears to be new. Endotracheal tube is seen in good position just above the eddie. NG tube enters left upper quadrant. Overall, the lungs are hyperinflated. Heart is not enlarged. Impression: Bibasilar infiltrates. Hyperinflation. Electronically Signed by George Savage MD 02/15/2020 08:06 A
[2020-02-15] MEDS: CHLORHEXIDINE GLUCONATE 0.12 % 15ML UDC (PERIDEX ORAL RINSE) MT SCH ×2 (08:39→21:03)
[2020-02-15] MEDS ORDERED: THIAMINE 200MG/2ML VIAL (J3411 PER 100MG) IM SCH (09:00)
[2020-02-15] MEDS ORDERED: MVI -ADULT INJECTION 10ML VIAL IV SCH (09:00)
[2020-02-15] MEDS: KCL 20MEQ IN 100ML SWI (KRUN) 20 MEQ in IV 1 EA IV SCH ×4 (10:42→11:59)
--- NOTE | 2020-02-15 11:03 | CCN ---
DATE: 02/15/2020 Patient was seen and examined this morning during bedside rounds. Yesterday patient had a bedside endoscopy performed by GI which showed evidence of multiple large duodenal ulcers with fresh blood clots but no active bleeding noted with suctioning of the clots. There was also some moderately severe esophagitis noted with no bleeding. The patient was continued on proton pump inhibitor (PPI) drip and octreotide as well as added sucralfate suspension via his OG tube. Overnight he did not have any further dark bloody output noted from his OG tube. Patient did not require any further transfusions overnight. His blood pressure remained stable off of Levophed although was on the lower side likely due to sedation. With a sedation vacation this morning the patient was noted to be responsive, intermittently following commands, although he did have some agitation as well. PHYSICAL EXAM: Temperature 97.0, pulse 61, respirations 19, blood pressure 85/63, oxygen saturation 99% on 21% FiO2. Ins 4 liters, out 460 mL. General: The patient is a thin male with some temporal wasting, lying in bed, intubated and sedated. He is responsive to painful stimuli. HEENT: Normocephalic, atraumatic. Pupils are small but reactive to light bilaterally. Neck is supple. Trachea is midline. There is no palpable cervical adenopathy. Cardiovascular: Regular rate and rhythm. Normal S1, S2. Unable to appreciate any murmurs. Pulmonary: There are some coarse ventilator breath sounds bilaterally with a few crackles in the right base, but no significant wheezing or rhonchi. Abdomen is soft, nondistended, is tender to palpation in the epigastric region. Extremities: There is no significant lower extremity edema noted bilaterally. LABS: WBC 9.2, hemoglobin 10.2, platelets are 166. Chemistry: Sodium is 142, potassium is 3.1, chloride is 107, bicarbonate is 32, BUN is 39, creatinine is 1.60, glucose is 142. Lactic acid was elevated, trending down now to 1.4. Magnesium is 2.0. INR is 1.18, PTT is 35.6. ABG pH 7.413, pCO2 of 39.8, pO2 is 96. IMAGING: Chest x-ray this morning shows ET tube in good position and OG tube in place below the diaphrgam. There is a right lower lobe infiltrate and new increased opacity in the left lower lobe. ASSESSMENT AND PLAN: Mr. Mock is a 59-year-old male with a history of COPD, hypertension, alcohol abuse, who presented initially with altered mental status. The patient was found on admission to have evidence of multiple foci of ischemic strokes, concerning for possible embolic source. Patient was also thought to have metabolic encephalopathy from possible alcohol withdrawal, as well as possible Wernicke's. The patient's hospital course was also complicated with a findings of subsegmental pulmonary embolism (PE) on his CT angiogram as well as with bilateral lower lobe infiltrates concerning for possible aspiration pneumonia. He was on Zosyn for antibiotic and he was on anticoagulation for this PE. On 02/14/20 the patient had a rapid response called due to worsening mental status and hypoxia. The patient was thought to have aspiration contributing to his acute hypoxemic respiratory failure and he was intubated. Post intubation, patient was hypotensive and noted to have significant dark red blood output from his OG tube. The patient was ordered for rapid transfusion protocol and was given 3 units of PRBCs, 1 unit of platelets and 3 units of FFP, as well as protamine sulfate for reversal of his anticoagulation. NEURO: History of multiple ischemic strokes possibly due to embolic source. He initial echocardiogram on admission did not show any evidence of atrial septal defect or significant valvular disease, although this was not performed with bubble study. Patient also with possible alcohol withdrawal contributing to metabolic encephalopathy as well as possible Wernicke's. - The patient is intubated and sedated. Will continue with propofol for sedation with Versed as needed for agitation and fentanyl as needed for analgesia. - The patient's repeat head CT yesterday did not show any evidence of hemorrhage while on his anticoagulation. - Patient tolerated a sedation vacation this morning and was intermittently responding to commands, although he did become agitated. Will continue with daily sedation and with a weaning trial tomorrow as tolerated. - continue with thiamine and folate supplementation as well as multivitamin in his IV fluids. CARDIO: History of hypertension. Patient had hypotension yesterday due to hypovolemia from his acute gastrointestinal (GI) bleed. The patient's blood pressure improved after transfusion and he was able to be weaned off of the Levophed which was started initially while awaiting blood products. - Will continue to monitor his blood pressure and maintain a mean arterial pressure (MAP) above 65. Will give IV fluid boluses if needed and vasopressors as well if needed to maintain blood pressure. - The patient's lactic acidosis improved on repeat. Most likely abnormal due to his hypovolemic shock. If there is continued concern for possible embolic stroke, the patient may need a transesophageal echocardiogram (ANGELINA) or echo with bubble study, particularly given evidence of his venous thromboembolic disease. There may be concern for cryptogenic strokes. Patient is unable to be anticoagulated given his acute GI bleed, but will have an IVC filter placed. PULMONARY: History of COPD. Patient had bilateral lower lobe infiltrates on his initial CT, concerning for aspiration pneumonia. Patient had acute hypoxemic respiratory failure yesterday likely due to aspiration of gastric contents in the setting of his GI bleed. - The patient's chest x-ray this morning shows some increased infiltrates in his lower lobes, likely secondary to his aspiration event yesterday. - He is on Zosyn for antibiotics, which we will continue and will followup the results of his sputum culture. - Continue patient on mechanical ventilation with PRVC at 470/15/21 and 5. - Will attempt a weaning trial tomorrow to see if patient can be extubated if he remains hemodynamically stable overnight and no further evidence of active bleeding. GASTROINTESTINAL (GI): History of alcohol use. Patient was also noted to have an acute GI bleed in the setting of anticoagulation during this admission. - Appreciate GI consult and recommendations. Patient had an endoscopy yesterday which showed several large ulcers that adherent clot on it, but no evidence of active bleeding. Continue with Protonix drip for 72 hours and can likely discontinue the octreotide drip, which we will discuss with GI. Will continue with sucralfate via his OG tube. - Patient has received 3 units of PRBC, 3 units of FFP, and 1 unit of platelets and protamine sulfate. He did not require any further transfusions yesterday, but will continue to monitor his hemoglobin and hematocrit and transfuse as needed. RENAL/ENDO: Patient with acute kidney injury (WHITLEY), likely in the setting of his hypovolemic shock. He also has hypokalemia and hypomagnesemia which has been repleted. The patient's renal function has been improving and his urine output is also improving. Will continue with maintenance fluids with D5 1/2 NS with multivitamin supplement and continues to replete his potassium. - Continue monitoring intake and output via Rogers. - Continue with fingerstick glucose checks and sliding scale coverage as needed. HEMATOLOGIC (HEME): Patient has a history of subsegmental PE and was on anticoagulation initially with Eliquis and then was transitioned to a heparin drip. - patient had acute GI bleed in the setting of anticoagulation and so it was placed on hold and he was given protamine sulfate for reversal. - Patient will need IVC filter placement as his anticoagulation will need to continue to be held given his acute bleed. - Continue deep vein thrombosis (DVT) prophylaxis with thromboembolic deterrent stockings (TEDS) and sequential compression devices (SCD). CODE STATUS: FULL CODE. Total critical care time spent not including procedures, approximately 35 minutes. NTAALIIAD
[2020-02-15] MEDS: propofoL 1,000 MG in IV 1 EA IV SCH (13:47)
--- NOTE | 2020-02-15 14:31 | IPNPDOC ---
Date Seen The patient was seen on 02/15/20. Progress Note SUBJECTIVE: remains intubated. not following commands despite decreased sedation this morning. still on ivfluids, s/p 3urbc with minimal blood via ng tube. egd: 2 duodenal ulcers severe esophagitis. no melena, black tarry stools, brbpr per RN. on iv octreotide, protonix, carafate. still on iv zosyn. cxr: infiltrate left base new, old right infra hilar infiltrate.no fevers overnight. right femoral cath without erythema or induration. OBJECTIVE PHYSICAL EXAMINATION: VITAL SIGNS: Please see below. i/o 1410/[id number] i/o since midnight [id number] GENERAL: not following commands. ET tube, NG tube. HEENT: Neck is supple. anicteric .Trachea is midline. no JVD or cervical LAD Cardiovascular: no murmurs Regular rate and rhythm. Normal S1, S2. Pulmonary: diminished.bibasilar crackles no rhonchi. Abdomen :(+) bs. soft, nondistended,epigastric tenderness without rebound or guarding. right femoral central catheter without erythema, tenderness, or induration. gay to gravity Extremities: no cyanosis, clubbing, or pitting edema. Neuro: sedated. not following commands. LABORATORY DATA, IMAGING STUDIES, MICROBIOLOGY: Please see below. 02/15/20 CXR: Portable chest x-ray: Single view. History: Intubated patient. Comparison study: February 14, 2020. Findings: Monitoring electrodes overlie the chest. There are interstitial infiltrates in the right infrahilar region unchanged from yesterday's radiograph. There are is a dense interstitial infiltrate in the left base today which appears to be new. Endotracheal tube is seen in good position just above the eddie. NG tube enters left upper quadrant. Overall, the lungs are hyperinflated. Heart is not enlarged. Impression: Bibasilar infiltrates. Hyperinflation. 02/12/20 Echocardiogram-Dr. Cartwright: 1. Low normal global left ventricular systolic function.EF50-55% Assessment of the left ventricular diastolic function was limited, nondiagnostic. 2. Trace tricuspid regurgitation with a normal calculated pulmonary artery systolic pressure. 3. Aortic valve sclerosis without stenosis or aortic radiation. 4. The study was technically limited as mentioned above. 02/14/20 EGD-Dr. Vazquez Four non-obstructing deeply cratered duodenal ulcers. Two of the ulcers with adherent blot clots.Moderately severe esophagitis. Recommendation: - Observe patient's clinical course. Transfuse PRBC PRN. - Use a proton pump inhibitor IV or PO/NGT. - Use sucralfate suspension 1 gram PO/NGT QID for 1 week. ASSESSMENT AND PLAN: 59-year-old male with past medical history significant for CVA, ETOH abuse, COPD, hypertension admitted for alcohol withdrawal and wernicke's encephalopathy, complicated by hypoxia s/p rapid assessment, requiring intubation due to aspiration pneumonia treated with zosyn and PE initially treated with iv heparin gtt, but discontinued due to GI bleed from 2 duodenal ulcers and severe esophagitis, requiring 3 units rbc transfusion, 1u plt, and 3 u FFP. Acute Metabolic Encephalopathy multifactorial: GI bleed, wernicke's , ETOH withdrawal, hypoxia requiring intubation for aspiration pneumonia. CT head: no new hemorrhage, or CVA. remains intubated. once extubated, MRI brain. GI Bleed due to 2 duodenal ulcers and severe esophagitis found on 02/14/20 EGD. on carafate via NG, octreotide,and protonix IV. s/p 3 units rbc transfusion, 1u plt, protamine, and 3 u FFP. no AC. serial hgb. Acute blood loss anemia due to GI bleed. s/p rbc transfusion. cycle serial hgb Severe protein calorie malnutriton BMI 15.3 still intubated on ivfluids. if continues to be vented, will start on tube feeds w nutrition consult. if extubated, trial of clears and supplemental ensure w nutrition consult. PE IVC filter due to acute GI bleed. Aspiration pneumonia afebrile. on IV zosyn x 7days course. Acute Hypoxic respiratory failure due to GI bleed, aspiration pneumonia, ETOH encephalopathy vented managed by pulmonary. weaning trial in am. History of COPD. no acute issues. vented Acute Renal Failure due to hypotension from GI bleed, and sepsis from aspiration pneumonia . off vasopressor. renally dosed meds and on ivfluids. DIET: NPO. hypoglycemic protocol and fingersticks. DVT prophylaxis: no AC due to acute GI bleed. compression stockings . CODE STATUS: FULL CODE. VS, I&O, 24H, Fishbone Vital Signs/I&O Vital Signs Date Time Temp Pulse Resp B/P (MAP) Pulse Ox O2 Delivery O2 Flow Rate FiO2 02/15/20 12:00 97.0 54 18 112/71 (85) 100 Ventilator 21 02/14/20 14:08 15.0 I&O- Last 24 Hours up to 6 AM 02/15/20 06:00 Intake Total 4772 ml Output Total 745 ml Balance 4027 ml Laboratory Data 24H LABS Laboratory Tests 2 02/14/20 14:28: Nucleated Red Blood Cells % (auto) 2.4H, Prothrombin Time 16.3H, Prothromb Time International Ratio 1.34, Activated Partial Thromboplast Time 39.7H, Anion Gap 12, Glomerular Filtration Rate 44.7L, Lactic Acid Level 5.4*H, Calcium Level 8.7L, Phosphorus Level 5.8H, Magnesium Level 1.7L, Total Bilirubin 0.7, Aspartate Amino Transf (AST/SGOT) 18, Alanine Aminotransferase (ALT/SGPT) 19, Alkaline Phosphatase 70, Total Protein 5.7L, Albumin 1.9L, Albumin/Globulin Ratio 0.50L 02/14/20 14:32: Blood Gas Bicarbonate Standard 19.0L, Arterial Blood pH 7.322L, Arterial Blood Partial Pressure CO2 36.5, Arterial Blood Partial Pressure O2 346.5H, Arterial Blood Total CO2 19.6L, Arterial Blood HCO3 18.5L, Arterial Blood Base Excess - 6.8L, Arterial Blood Oxygen Saturation 99.9H 02/14/20 17:45: Bedside Glucose (Misc Panel) 142H 02/14/20 19:51: Nucleated Red Blood Cells % (auto) 0.7H, Prothrombin Time 14.7H, Prothromb Time International Ratio 1.18, Activated Partial Thromboplast Time 35.6, Anion Gap 5L, Glomerular Filtration Rate 49.9, Calcium Level 9.1, Phosphorus Level 3.8#, Magnesium Level 2.1, Immature Granulocyte % (Auto) 0.9, Neutrophils (%) (Auto) 78.7H, Lymphocytes (%) (Auto) 8.5L, Monocytes (%) (Auto) 11.6H, Eosinophils (%) (Auto) 0.1, Basophils (%) (Auto) 0.2, Neutrophils # (Auto) 9.6H, Lymphocytes # (Auto) 1.0L, Monocytes # (Auto) 1.4H, Eosinophils # (Auto) 0.0, Basophils # (Auto) 0.0 02/14/20 23:21: Bedside Glucose (Misc Panel) 185H 02/15/20 00:20: Lactic Acid Followup at 4 Hours 1.4 02/15/20 04:17: Immature Granulocyte % (Auto) 0.6, Neutrophils (%) (Auto) 79.3H, Lymphocytes (%) (Auto) 10.2L, Monocytes (%) (Auto) 8.8H, Eosinophils (%) (Auto) 0.9, Basophils (%) (Auto) 0.2, Neutrophils # (Auto) 7.3, Lymphocytes # (Auto) 0.9L, Monocytes # (Auto) 0.8, Eosinophils # (Auto) 0.1, Basophils # (Auto) 0.0, Nucleated Red Blood Cells % (auto) 0.3H, Anion Gap 3L, Glomerular Filtration Rate 57.2, Calcium Level 8.6L, Magnesium Level 2.0 02/15/20 05:33: Blood Gas Bicarbonate Standard 24.7, Arterial Blood pH 7.413, Arterial Blood Partial Pressure CO2 39.8, Arterial Blood Partial Pressure O2 96.0, Arterial Blood Total CO2 26.1, Arterial Blood HCO3 24.8, Arterial Blood Base Excess 0.3, Arterial Blood Oxygen Saturation 96.6, Arterial Blood Gas Puncture Site UNKNOWN 02/15/20 11:54: Bedside Glucose (Misc Panel) 89 CBC/BMP Laboratory Tests 02/14/20 14:28 02/14/20 19:51 02/15/20 04:17 Microbiology Microbiology 02/14/20 Blood Culture, Received Pending 02/09/20 Blood Culture - Final, Complete NO GROWTH AFTER 5 DAYS 02/09/20 Blood Culture - Final, Complete NO GROWTH AFTER 5 DAYS RONAL LINN MD Feb 15, 2020 13:57
[2020-02-15 14:41] LABS: BLOOD UREA NITROGEN 29 MG/DL (7-18); CALCIUM LEVEL 8.5 MG/DL (8.8-10.2); CARBON DIOXIDE LEVEL 29 MEQ/L (21-32); CHLORIDE LEVEL 111 MEQ/L (98-107); CREATININE FOR GFR 1.27 MG/DL (0.70-1.30); GLOMERULAR FILTRATION RATE > 60.0 (>49); GLUCOSE, FASTING 97 MG/DL (70-100); SODIUM LEVEL 142 MEQ/L (136-145)
[2020-02-15] MEDS ORDERED: ISOVUE-300 61% 50ML VIAL As Ordered ONE (17:20)
[2020-02-15] MEDS ORDERED: LIDOCAINE 1% MDV 20ML VIAL As Ordered ONE (17:20)
[2020-02-15] MEDS ORDERED: fentaNYL 100 MCG/2 ML INJECTION (J3010) As Ordered ONE (18:27)
[2020-02-15] MEDS ORDERED: MIDAZOLAM INJ 2MG/2ML VIAL (J2250 PER 1MG) As Ordered ONE (18:28)
[2020-02-15] MEDS ORDERED: diphenhydrAMINE 50MG/ML VIAL (J1200) As Ordered ONE (18:35)
--- NOTE | 2020-02-15 20:13 | POST-OPPD ---
Postoperative Procedure Note Date Of Procedure: Feb 15, 2020 Time Of Procedure: 19:12 PREOPERATIVE DIAGNOSIS: PE. CI to AC due to GI bleed POSTOPERATIVE DIAGNOSIS: same FINDINGS: patent left CFV PROCEDURE: IVC filter placed SURGEON: marivel ANESTHESIA: local ESTIMATED BLOOD LOSS: < 5 ml COMPLICATIONS: none POSTOPERATIVE CONDITION: stable INGRID MORGAN MD Feb 15, 2020 20:13
[2020-02-16] VITALS (29 sets, daily range): BP systolic 102–148; BP diastolic 64–89
[2020-02-16] MEDS: PANTOPRAZOLE SODIUM 40 MG in D5W 50 ML IV SCH (01:08)
[2020-02-16] MEDS: propofoL 1,000 MG in IV 1 EA IV SCH (01:09)
[2020-02-16] MEDS: SUCRALFATE SUSP 1GM/10ML UD NG SCH ×4 (01:09→17:36)
[2020-02-16] MEDS: THIAMINE INJection 500 MG in NS 100 ML IV SCH ×3 (01:54→18:20)
[2020-02-16] MEDS: D5W/0.45% SODIUM CHLORIDE 1,000 ML IV SCH ×3 (04:00→15:50)
[2020-02-16] MEDS: PIPERACILLIN/TAZOBACTAM SOD 3.375 GM in D5W MINI-BAG PLUS 50 ML IV SCH (04:57)
[2020-02-16 05:38] LABS: HEMATOCRIT 29.4 % (42.0-52.0); HEMOGLOBIN 9.6 g/dl (13.5-17.5); MEAN CORPUSCULAR HEMOGLOBIN 30.6 pg (27.0-33.0); MEAN CORPUSCULAR HGB CONC 32.7 g/dl (32.0-36.5); MEAN CORPUSCULAR VOLUME 93.6 fl (80.0-96.0); PLATELET COUNT, AUTOMATED 153 10^3/uL (150-450); RED BLOOD COUNT 3.14 10^6/uL (4.30-6.10); WHITE BLOOD COUNT 6.8 10^3/uL (4.0-10.0)
[2020-02-16 06:10] LABS: ABG BASE EXCESS -0.9 (-2.0-2.0); ABG HCO3 23.6 MEQ/L (22.0-26.0); ABG O2 SATURATION 93.7 % (95.0-99.0); ABG PARTIAL PRESSURE CO2 38.1 mmHg (35.0-45.0); ABG PARTIAL PRESSURE O2 73.7 mmHg (75.0-100.0); ABG STANDARD HCO3 23.7 MEQ/L (22.0-26.0); ABG TOTAL CO2 24.7 MEQ/L (23.0-31.0); ABG pH (ARTERIAL) 7.409 UNITS (7.350-7.450)
[2020-02-16 06:14] LABS: ALBUMIN 1.9 GM/DL (3.2-5.2); ALT/SGPT 19 U/L (12-78); BILIRUBIN,TOTAL 0.5 MG/DL (0.2-1.0); BLOOD UREA NITROGEN 19 MG/DL (7-18); CALCIUM LEVEL 7.8 MG/DL (8.8-10.2); CARBON DIOXIDE LEVEL 27 MEQ/L (21-32); CHLORIDE LEVEL 111 MEQ/L (98-107); CREATININE FOR GFR 0.97 MG/DL (0.70-1.30); GLOMERULAR FILTRATION RATE > 60.0 (>49); GLUCOSE, FASTING 110 MG/DL (70-100); POTASSIUM SERUM 3.6 MEQ/L (3.5-5.1); SODIUM LEVEL 142 MEQ/L (136-145); TOTAL PROTEIN 5.1 GM/DL (6.4-8.2)
[2020-02-16] MEDS: HumaLOG INSULIN (NovoLOG) PER UNIT SC SCH ×4 (06:22→17:36)
--- NOTE | 2020-02-16 07:55 | REP ---
Portable chest x-ray: Single view. History: Intubated patient. Comparison study: February 15, 2020. Findings: Bibasilar infiltrates persist right a little more prominently than left. There is some increased opacity in the right base today. No evidence of free pleural effusion. Endotracheal tube and nasogastric tubes remain in place unchanged. Electronically Signed by George Savage MD 02/16/2020 07:46 A
[2020-02-16] MEDS: CHLORHEXIDINE GLUCONATE 0.12 % 15ML UDC (PERIDEX ORAL RINSE) MT SCH ×2 (09:00→22:36)
[2020-02-16] MEDS ORDERED: LORazepam 2 MG/ML VIAL (J2060) IV PRN (09:00)
--- NOTE | 2020-02-16 09:13 | IPN ---
DATE: 02/16/2020 The patient remains afebrile, intubated, vented and currently on pressure support for a weaning trial today. No other issues per nursing. Vitals: Temperature 97.3, pulse 58, respiratory rate 20, blood pressure 119/74, 100% on the ventilator, FiO2 of 21%. Generally, the patient is sedated, not following commands. Nasogastric tube, ET tube in place. Lungs diminished, but clear to auscultation. Heart: S1, S2. Sinus bradycardia. Abdomen: Soft. Nontender. Nondistended. Extremities: No pitting edema. Rogers catheter in place. Right femoral catheter clean and dry. No erythema or tenderness. Laboratory Data: White count 6.8, hemoglobin 9.6, hematocrit 29. Previous hemoglobin 10 and hematocrit 30. Platelet count 153. Sodium 142, potassium 3.6, chloride 111, bicarbonate 27, BUN 19, creatinine 0.97, glucose 110. Microbiology: Blood culture negative after 24 hours. Chest x-ray on 02/16/2020: Bibasilar infiltrates persist on the right more than the left. Increased opacity of right base. No pleural effusion. ET and nasogastric tube remain in place. ASSESSMENT AND PLAN: This is a 59-year-old -[place] male with history significant for CVA, alcohol abuse, chronic obstructive pulmonary disease (COPD), hypertension, admitted for confusion, treated for Wernicke encephalopathy, alcohol withdrawal, complicated by rapid assessment team due to hypoxia secondary to pneumonia with aspiration requiring intubation. The patient was also found to have pulmonary embolism and initially was started on IV heparin drip. Post extubation, the patient was found to have acute GI bleed with a liter of bright red blood and hematemesis. Esophagogastroduodenoscopy (EGD) showed duodenal ulcer, severe esophagitis. After three red blood cell (RBC) transfusion, one platelet, and three fresh frozen plasma (FFP), as well as, protamine sulfate to reverse IV heparin, the patient has not been on anticoagulation since. Due to recent active GI bleed, he has been on Carafate,octreotide PPI and D51/2 normal. 1. Acute hypoxic respiratory failure due to aspiration pneumonia in the setting of GI bleed and pulmonary embolism. The patient will be on a weaning trial today with process treater Dr. Moore, currently on pressure support. 2. Aspiration pneumonia, on intravenous Zosyn, currently with normal white count, afebrile overnight. 3. Acute GI bleed due to duodenal ulcer, severe esophagitis, after IV heparin was started for pulmonary embolism (PE). Currently on Carafate, octreotide and Protonix. Status post three units RBC, one unit platelets, protamine and three units FFP. No oral anticoagulation due to active bleed. 4. Pulmonary embolism, status post IVC filter placed by Dr. Bryant on 02/15/2020. Unable to anticoagulate due to recent GI bleed requiring three units RBC transfusion. 5. History of COPD, currently vented. No acute issues. 6. Acute renal failure due to hypovolemic shock requiring Levophed drip. Off vasopressor currently with normal creatinine on fluid hydration. 7. History of CVA. Unable to anticoagulate secondary to active GI bleed. Currently with plans for bubble study due to extensive emboli. Hypercoagulable study. Unable to put an antiplatelets at this time. 8. ETOH abuse with possible wernickes on iv thiamine. 9. Acute metabolic encephalopathy due to pneumonia, gi bleed, hypotensive shock which has resolved s/p vasopressor, due to blood loss. 10. acute blood loss anemia due to gi bleed. monitoring cbc. [facility]
[2020-02-16] MEDS: IPRATROPIUM 0.5MG/ALBUTEROL 2.5MG INH SOL UD 3ML (DUONEB)(J7620) NEB SCH ×4 (09:47→19:37)
[2020-02-16 10:45] LABS: ABG BASE EXCESS -0.1 (-2.0-2.0); ABG HCO3 23.8 MEQ/L (22.0-26.0); ABG O2 SATURATION 97.9 % (95.0-99.0); ABG PARTIAL PRESSURE CO2 36.5 mmHg (35.0-45.0); ABG PARTIAL PRESSURE O2 107.2 mmHg (75.0-100.0); ABG STANDARD HCO3 24.4 MEQ/L (22.0-26.0); ABG pH (ARTERIAL) 7.433 UNITS (7.350-7.450)
[2020-02-16] MEDS: PANTOPRAZOLE 40MG VIAL (C9113 PER 1) IV SCH ×2 (10:48→22:36)
[2020-02-16] MEDS: PIPERACILLIN/TAZOBACTAM SOD 4.5 GM in D5W MINI-BAG PLUS 50 ML IV SCH ×3 (10:48→22:36)
--- NOTE | 2020-02-16 11:07 | CCN ---
DATE: 02/16/2020 Patient was seen and examined this morning at bedside. He is lying comfortably in bed with endotracheal tube in place. He has also had an orogastric (OG) tube in place, on low suction, without any evidence of recurrent gastrointestinal (GI) bleeding overnight. He has been continued on proton pump inhibitor (PPI) drip and his octreotide has been discontinued yesterday. He has not required any further blood transfusions. His blood pressure has remained stable off Levophed. With a sedation vacation, the patient is able to follow some commands intermittently and does not appear agitated this morning. OBJECTIVE: VITAL SIGNS: Temperature 97.7, pulse 58, respiratory rate 20, blood pressure 119/74, oxygen saturation 100% on ventilator with FiO2 21%. GENERAL: The patient is a thin male, lying comfortably in bed, intubated and sedated. He is responsive to painful stimuli. HEENT: Normocephalic, atraumatic. Pupils reactive to light bilaterally. Sclerae anicteric. NECK: Supple, trachea is midline, no evidence of jugular venous distention (JVD). CARDIOVASCULAR: Regular rate and rhythm, normal S1 and S2. No murmurs, rubs, or gallops appreciated. RESPIRATORY: The patient is breathing comfortably on ventilator with coarse breath sounds bilaterally. No wheezing, rhonchi noted. No accessory muscle use. ABDOMEN: Soft, nondistended. EXTREMITIES: There is no edema, cyanosis, or clubbing noted. Pulses present bilateral dorsalis pedis and radial arteries. LABORATORY DATA: WBC 6.8, hemoglobin 9.6, hematocrit 9.4, platelet count 153. Sodium 142, potassium 3.6, chloride 111, carbon dioxide 27, BUN 19, creatinine 0.97, glucose 110, calcium 7.8, total bilirubin 0.5, AST 19, ALT 19, alkaline phosphatase 60, total protein 5.1, albumin 1.9. ABG pH 7.409, pCO2 38.1, pO2 73.7. IMAGING: Chest x-ray shows persistent bibasilar infiltrates, more prominent on the right. Endotracheal tube and orogastric tube are each in place. ASSESSMENT AND PLAN: Mr. Mock is a 59-year-old male with a history of chronic obstructive pulmonary disease (COPD), hypertension, alcohol abuse, who presented with altered mental status and was found on admission to have multiple foci of ischemic strokes, concerning for embolism. He was also found to have metabolic encephalopathy likely alcohol withdrawal and possible Wernicke's encephalopathy. The patient's hospital course was complicated by subsegmental pulmonary embolism (PE) on CT angiography and bilateral lower lobe infiltrates concerning for aspiration pneumonia. He was started on Zosyn for antibiotics and heparin drip on anticoagulation for his PE. On 02/14/20, a rapid response was called to the patient's room due to worsening mental status and hypoxia. The patient was thought to have aspiration leading to acute hypoxemic respiratory failure and he was subsequently intubated. He was also found to be hypotensive with significant dark red blood output from OG tube. A rapid transfusion protocol was ordered and the patient received 3 units of packed red blood cells (PRBC), 1 unit of platelets, and 3 units of fresh frozen plasma (FFP) as well as protamine sulfate for heparin reversal. Subsequent upper endoscopy revealed multiple large duodenal ulcers concerning for recent bleeding without any evidence of active bleeding. Neurologic: History of multiple ischemic strokes concerning for embolic source. Echocardiogram on admission did not show any evidence of atrial septal defect (ASD) or significant valvular disease, although no bubble study was performed at this time. Possible alcohol withdrawal contributing to metabolic encephalopathy and possible Wernicke's encephalopathy. The patient was weaned off sedation this morning and extubated successfully to a nonrebreather mask. Sedation will be discontinued. He will be on CIWA with PRN IV Ativan to continue to monitor and treat any withdrawal, although this should be resolved at this point. We will consider repeat neurologic imaging such as brain MRI to better assess his stroke burden and rule out recurrent embolic strokes. Continue with IV thiamine and folate supplementation as well as multivitamin. Consult for speech/swallow evaluation, as well as PT and OT when he is appropriate. Cardio: History of hypertension. The patient's blood pressure has been stable status post transfusion. He has not required vasopressors since he was weaned off of them on 02/14/2020. We will continue to monitor his blood pressure to maintain a mean arterial pressure (MAP) above 65. If there is continued concern for embolic stroke, the patient may need a transesophageal echocardiogram (ANGELINA) or ANGELINA with bubble study to better rule out a shunt. There may also be concern for cryptogenic strokes. We will continue to avoid anticoagulation in the setting of recent GI bleeding, but the patient did have an inferior vena cava (IVC) filter placed yesterday. Pulmonary: History of COPD. Chest x-ray continues to show bilateral lower lobe infiltrates concerning for aspiration pneumonia. The patient was successfully extubated this morning onto a nonrebreather mask. We will continue to monitor his breathing status over the course of the day. We will continue Zosyn for possible aspiration pneumonia bilaterally. GI: History of alcohol abuse. The patient with recent acute GI bleed likely secondary large duodenal ulcers. He received an octreotide drip and Protonix which has been discontinued, and a Protonix drip which will be switched to Protonix twice a day at this point. Appreciate GI consult and their recommendations. The patient remains nothing by mouth at this time, he will be evaluated by speech and swallow therapy for recommendations to advance his diet. Renal/Endo: Acute kidney injury likely secondary to hypovolemic shock, which has improved over the past 2 days. We will continue with IV fluids and multivitamin supplementation as well as repletion of any low electrolytes levels. Continue monitoring intake and output via Rogers catheter. Continue with fingerstick glucose checks and sliding scale insulin coverage as needed. Hematologic: The patient has subsegmental PEs and was initially started on anticoagulation which has been with Eliquis and transitioned to a heparin drip. This has been held in the setting of recent acute GI bleeding. He required massive transfusion and protamine sulfate was given for reversal. H/H have been stable. We will continue to hold anticoagulation. IVC filter has been placed by Dr. Bryant, appreciate her assistance. Deep venous thrombosis (DVT) prophylaxis with thromboembolic deterrent stockings (TEDS) and sequential compression devices (SCD). Code status: Was discussed with patient's over the phone. She had initially discussed making patient DNR/DNI but after further consideration and discussion with family rescinded the DNR/DNI and made patient FULL CODE. Total critical care time not including procedures approx 45 mins. IRuth, have conducted independent examination of the patient and agree with the plan as detailed above by the resident and discussed during rounds. MORIS
--- NOTE | 2020-02-16 12:31 | REP ---
IR IVC filter placement. IR Venogram. Ultrasound of the left groin. Clinical indication : Bilateral lower lobar pulmonary emboli. Contraindication to anticoagulation due to GI bleeding. Physician: Dr. Bryant. Procedure: The patient's was advised of the benefits, risks and alternatives of the procedure and informed consent was obtained. The time-out was performed with verification of the patient's name, MRN, site of procedure and type of procedure to be performed. The patient was positioned in the supine position on the angiographic table. The site was prepped and draped in the usual sterile fashion. Moderate sedation was not performed. The physician spent 45 minutes of continuous face to face time with the patient. Preliminary ultrasound of the left groin was performed and demonstrates a patent left common femoral vein which is easily compressible. The vein was accessed using a micropuncture kit, under ultrasound guidance. An 035 wire was placed into the peripheral inferior vena cava. An inferior vena cava venogram was then performed demonstrating a normal caliber inferior vena cava without filling defects and the renal vein inflow at the L1- 2 level. No caval anomalies were identified. The wire was then passed into the inferior vena cava and the filter sheath advanced over the wire. A filter was then advanced through the sheath and positioned within the infrarenal inferior vena cava. The filter was then deployed in the usual fashion. Positioning was confirmed fluoroscopically. The sheath was then removed and hemostasis obtained with manual compression. The patient tolerated the procedure well and was returned to PRU in stable condition. EBL: Less than 5 ml. Complications: None. Conclusion: 1. Normal inferior vena cava venogram. 2. Successful deployment of a cook select filter in the infrarenal inferior vena cava. 3. Patient to return for filter retrieval when no longer needed. Follow up in IR clinic in 6 months. Thank you this referral. Electronically Signed by Narda Bryant MD 02/16/2020 12:30 P
[2020-02-17] VITALS (16 sets, daily range): BP systolic 109–164; BP diastolic 67–98
[2020-02-17] MEDS: PIPERACILLIN/TAZOBACTAM SOD 4.5 GM in D5W MINI-BAG PLUS 50 ML IV SCH (04:16)
[2020-02-17] MEDS: D5W/0.45% SODIUM CHLORIDE 1,000 ML IV SCH ×2 (04:27→16:15)
[2020-02-17 04:56] LABS: HEMATOCRIT 29.6 % (42.0-52.0); HEMOGLOBIN 9.9 g/dl (13.5-17.5); MEAN CORPUSCULAR HEMOGLOBIN 30.4 pg (27.0-33.0); MEAN CORPUSCULAR HGB CONC 33.4 g/dl (32.0-36.5); MEAN CORPUSCULAR VOLUME 90.8 fl (80.0-96.0); PLATELET COUNT, AUTOMATED 174 10^3/uL (150-450); RED BLOOD COUNT 3.26 10^6/uL (4.30-6.10); WHITE BLOOD COUNT 7.2 10^3/uL (4.0-10.0)
[2020-02-17] MEDS: HumaLOG INSULIN (NovoLOG) PER UNIT SC SCH ×4 (06:00→18:00)
[2020-02-17] MEDS: SUCRALFATE SUSP 1GM/10ML UD NG SCH ×4 (06:00→15:52)
[2020-02-17 06:52] LABS: BLOOD UREA NITROGEN 7 MG/DL (7-18); CALCIUM LEVEL 8.2 MG/DL (8.8-10.2); CARBON DIOXIDE LEVEL 28 MEQ/L (21-32); CHLORIDE LEVEL 107 MEQ/L (98-107); CREATININE FOR GFR 0.79 MG/DL (0.70-1.30); GLOMERULAR FILTRATION RATE > 60.0 (>49); GLUCOSE, FASTING 74 MG/DL (70-100); MAGNESIUM LEVEL 1.3 MG/DL (1.8-2.4); POTASSIUM SERUM 2.9 MEQ/L (3.5-5.1); SODIUM LEVEL 141 MEQ/L (136-145)
[2020-02-17] MEDS: MAG SULF 1GM/100ML (MAG RUN) 1 GM in IV 1 EA IV SCH ×2 (07:44→08:43)
[2020-02-17] MEDS: KCL 20MEQ IN 100ML SWI (KRUN) 20 MEQ in IV 1 EA IV ONE ×4 (08:00→08:53)
[2020-02-17] MEDS: IPRATROPIUM 0.5MG/ALBUTEROL 2.5MG INH SOL UD 3ML (DUONEB)(J7620) NEB SCH ×4 (08:12→20:00)
[2020-02-17] MEDS: PANTOPRAZOLE 40MG VIAL (C9113 PER 1) IV SCH ×2 (08:53→20:12)
[2020-02-17] MEDS ORDERED: MAG SULF 1GM/100ML (MAG RUN) 1 GM in IV 1 EA IV ONE (09:00)
[2020-02-17] MEDS ORDERED: THIAMINE 200MG/2ML VIAL (J3411 PER 100MG) IV SCH (09:00)
[2020-02-17] MEDS: CHLORHEXIDINE GLUCONATE 0.12 % 15ML UDC (PERIDEX ORAL RINSE) MT SCH (09:00)
[2020-02-17] MEDS ORDERED: THIAMINE INJection 250 MG in NS 100 ML IV SCH ×6 (09:00)
[2020-02-17] MEDS: THIAMINE INJection 250 MG in NS 100 ML IV SCH (09:45)
[2020-02-17] MEDS ORDERED: KCL 20MEQ IN 100ML SWI (KRUN) 20 MEQ in IV 1 EA IV ONE ×4 (10:00→11:00)
--- NOTE | 2020-02-17 10:04 | IPN ---
DATE OF SERVICE: 02/17/2020 The patient has been extubated. Stable overnight. On room air, saturating 98% to 100%. The patient is awake, alert, oriented to himself. He says that he has no pain aside from a bit of a sore throat this morning. No shortness of breath. No recurrent gastrointestinal (GI) bleed. Denies hematemesis, melena, abdominal pain, nausea, or vomiting. He is kept nothing by mouth, on intravenous (IV) fluids, awaiting his swallow evaluation to rule out aspiration. The patient is off anticoagulation due to recent GI bleed despite history of stroke and pulmonary embolism (PE), status post inferior vena cava (IVC) filter placement. The patient is medically stable to be transferred out of the intensive care unit (ICU). He currently has had no fever or chills. Still confused. Off of the Protonix drip and octreotide drip. Vital signs: Temperature 99, pulse 81, respiratory rate 20, blood pressure 137/83, 98% on room air. Generally, the patient is awake, alert, oriented to himself only. He is disoriented to name of the hospital and date. He is answering questions appropriately. No facial asymmetry. Tongue is midline. Dry mucous membranes with chapped lips. No jugular venous distention (JVD) or thyromegaly. No cervical lymphadenopathy. Nasogastric tube and endotracheal (ET) tube have been removed. Lungs are clear to auscultation. No wheezing, rales, or rhonchi. Heart: S1, S2. Sinus rhythm. No murmurs, rubs, or gallops. Abdomen: Soft. Nontender. Nondistended. Right femoral catheter without erythema or tenderness. Peripheral lines in the right antecubital are clean and dry. No erythema, tenderness, or swelling. Extremities: No pitting edema. Input overnight 550, output of 1840, negative 1290. Since midnight, 600 input, output of 750, negative 150. Current weight is 62.9 kg from admission weight of 56.6 kg. LABORATORY DATA: White count 7.2, hemoglobin 9.9, hematocrit 29, platelet count 174. Sodium 141, potassium 2.9, chloride 107, bicarbonate 28, BUN 7, creatinine 0.79, glucose 74, magnesium of 1.3. Blood culture negative after 48 hours on 02/09/2020 and 02/14/2020. IMAGING STUDIES: Chest x-ray on 02/16/2020: Persistent bibasilar infiltrates, a little more on the left. Increased opacity at right base. No evidence of pleural effusion. ASSESSMENT AND PLAN: This is a 59-year-old male admitted on 02/09/2020 with complaint of altered mental status, unable to provide any history. Chest x-ray showed chronic obstructive pulmonary disease (COPD) without acute infiltrate. CT of the head was unremarkable. Creatinine was 1.6. The patient was admitted for acute renal failure and was found to have MRI showing bihemispheric acute cerebrovascular accidents (CVAs). Echocardiogram showed ejection fraction (EF) of 50% to 55% with trace tricuspid regurgitation. Carotid Dopplers on 02/10/2020 showed extensive calcified and noncalcified atheromatous plaques in both common carotid arteries, carotid bulbs extending into the internal carotid arteries. There is no significant stenosis of the internal carotid arteries. Limited examination due to patient motion. Recommendations for neurology was to anticoagulate. However, on 02/13/2020, CT chest showed a small pulmonary embolus in the third order of the medial right lower lobe with bibasilar consolidation along with chronic obstructive pulmonary disease (COPD) and emphysematous changes. The patient continues to have labored breathing and was agonal. The patient was emergently intubated. He was in acute hemorrhagic shock due to GI blood loss with hematemesis. Heparin drip was discontinued for pulmonary embolism (PE) and cerebrovascular accident (CVA). He was given 3 units of red blood cells (RBCs), 2 packs of fresh frozen plasma (FFP), one pack of platelet and protamine. Esophagogastroduodenoscopy (EGD) performed by Dr. Vazquez on 02/14/2020 showed a two duodenal ulcers, severe esophagitis. He was started on Protonix and octreotide drip. Kept on thiamine for alcohol withdrawal. He was kept intubated and managed by Dr. Moore due to contraindication to anticoagulation. Dr. Narda Bryant placed an inferior vena cava (IVC) filter on 02/15/2020. The patient was subsequently extubated on 02/16/2020. Awaiting his swallow evaluation today. Acute issues are as follows: 1. Acute metabolic encephalopathy secondary to aspiration pneumonia, still on IV Zosyn to complete a 7-day course, hemorrhagic shock secondary to acute GI bleed requiring 3 units RBC transfusion, two FFPs, one platelet transfusion and protamine with reversal, IV heparin given for PE. The patient's mentation has improved but still not back to baseline. 2. Aspiration pneumonia. Completed a course of Zosyn. 3. Hemorrhagic shock, resolved, status post Levophed drip, IV fluid hydration, and blood transfusions. 4. History of pulmonary embolism. Cannot be anticoagulated due to acute GI bleed. The patient has had an IVC filter placed by interventional radiology on 02/15/2020. 5. History of chronic obstructive pulmonary disease, currently not in any exacerbation. 6. Acute kidney injury due to hemorrhagic shock from hypovolemia from GI bleed due to bleeding duodenal ulcers and severe esophagitis in the setting of heparin drip and Eliquis previously. 7. Subsegmental pulmonary embolism. Cannot be anticoagulated due to GI bleed. Currently, status post IVC filter. 8. Hypertension, stable. 9. Sore throat due to recent intubation. 10. Acute hypoxic respiratory failure secondary to hemorrhagic shock, aspiration pneumonia, GI bleed, status post extubation, currently 100% on room air. 11. Hypokalemia, Hypomagnesemia. repleted . recheck at noon. Diet. Nothing by mouth. Awaiting swallow evaluation to rule out aspiration. Deep venous thrombosis (DVT) prophylaxis with compression stockings. DISPOSITION: May transfer out of the intensive care unit (ICU). [facility]
--- NOTE | 2020-02-17 10:51 | IPN ---
DATE OF SERVICE: 02/17/2020 SUBJECTIVE: Patient was seen and examined this morning at bedside. He is lying comfortably in bed. He is alert and responsive, but only oriented to person. He often says things that do not make sense. He is able to follow commands intermittently, but does not have consistent effort as reported by nursing staff. No overnight events noted. Patient denies any shortness of breath, coughing, abdominal pain or nausea. However, it is unclear if his responses are reliable. Patient denies any pain. OBJECTIVE: VITAL SIGNS: Temperature 99.0, pulse 81, respiratory rate 20, blood pressure 127/86 with a map of 100, saturating 100% on room air. GENERAL: Thin male, lying comfortably in bed, alert and responsive but remains confused. HEENT: Normocephalic, atraumatic, pupils are reactive to light bilaterally. NECK: Supple. Trachea is midline, no evidence of jugular venous distention (JVD). CARDIOVASCULAR: Regular rate and rhythm. Normal S1, S2. No murmurs, rubs or gallops appreciated. RESPIRATORY: Lungs clear to auscultation bilaterally without wheezing, rhonchi or rales. No accessory muscle use. ABDOMEN: Soft, nondistended, nontender. Bowel sounds present. EXTREMITIES: No edema, cyanosis, or clubbing noted. Pulses present in bilateral dorsalis pedis and radial arteries. NEUROLOGIC: Alert and oriented to person only. Does not consistently follow commands. Tremor noticed when lifting arms. LABORATORY DATA: White blood count 7.2, hemoglobin 9.9, hematocrit 29.6, platelet count 174. Sodium 141, potassium 2.9, chloride 107, carbon dioxide 28, BUN 7, creatinine 0.79, glucose 74, calcium 8.2, magnesium 1.3. ASSESSMENT/PLAN: Mr. Mock is a 59-year-old male with a history of chronic obstructive pulmonary disease (COPD), hypertension, alcohol abuse who presented with altered mental status and was found on admission to have multiple foci with ischemic strokes concerning for embolism. He was also found to have metabolic encephalopathy likely due to prodromal possible Wernicke's encephalopathy. Patient's hospital course was further complicated by subsegmental pulmonary embolus (PE) and bilateral lower lobe infiltrate concerning for aspiration pneumonia. He was started on Zosyn and heparin drip for anticoagulation for his PE. On 02/14/2020, a rapid response was called to the patient's room due to worsening mental status and hypoxia. The patient was thought to have aspiration leading to acute hypoxemic respiratory failure and he was subsequently intubated. He was also found to be hypotensive with significant dark red blood output from orogastric (OG) tube. A rapid transfusion protocol was ordered and the patient received 3 units of packed red blood cells (PRBC), 1 unit of platelets, and 3 units of fresh frozen plasma (FFP) as well as protamine sulfate for heparin reversal. Subsequent upper endoscopy revealed multiple large duodenal ulcers concerning for recent bleeding without any evidence of active bleeding. The patient has stabilized and was successfully extubated on 02/16/2020. Neurologic: History of multiple ischemic strokes concerning for embolic source. Possible alcoholic withdrawal contributing to metabolic encephalopathy and possible Wernicke's encephalopathy. - Consider repeat echocardiogram with bubble study to better assess for possible right to left shunt. - Continue vitamin supplementation, folate supplementation, and multivitamin. - Continue CIWA protocol as needed Ativan to monitor and treat withdrawal. - Consider repeat neurologic imaging such as brain MRI to better assess for brain emboli recurrent embolic strokes. - Patient evaluated by speech therapy and remains nothing by mouth at this time. - Physical therapy (PT) and occupational therapy (OT) consults to assess patient's functional status. Cardiovascular: History of hypertension. The patient's blood pressure has been stable status post transfusion and there is no evidence of recurrent GI bleed at this time. We will continue to avoid anticoagulation in the setting of recent GI bleeding. Patient is status post placement of inferior vena cava (IVC) filter by Dr. Bryant, appreciate her assistance. - Consider transesophageal echocardiogram (ANGELINA) or transthoracic echocardiogram (TTE) with bubble study to better evaluate for right to left shunt contributing to embolic strokes. Pulmonary: History of COPD. Chest x-ray revealed bilateral lower lobe infiltrates concerning for aspiration pneumonia. S/P endotracheal intubation with successful extubation on 02/16/2020. Patient is currently saturating appropriately on room air. - Continue Zosyn for aspiration pneumonia. Gastrointestinal with history of alcohol abuse: Recent acute GI bleeding likely secondary to large duodenal ulcers seen on upper endoscopy by Dr. Vazquez, appreciate his assistance. Status post octreotide drip and Protonix drip. - Continue Protonix twice a day. - Patient remains nothing by mouth based on speech therapy evaluation. Continue to follow their recommendations to advance diet. - May need to consider enteral feeding and possible G-tube placement moving forward, if the patient remains nothing by mouth. Renal/Endo: Acute kidney injury likely secondary to hypovolemic shock secondary to acute GI bleeding, has improved and kidney function has remained stable. Developed hypokalemia and hypomagnesemia today. - Electrolytes have been repleted and we will recheck levels this afternoon, and continue to supplement as indicated. - Continue monitoring intake and output via Rogers catheter. - Continue fingerstick glucose checks and sliding scale insulin coverage as needed while nothing by mouth. Hematologic: The patient has subsegmental PEs and was started on anticoagulation with Eliquis initially and transitioned to a heparin drip. This was been held due to acute GI bleeding, requiring massive transfusion. Hemoglobin and hematocrit have remained stable. - Continue to hold any anticoagulation at this time. IVC filter has been placed by Dr. Bryant, and appreciate her assistance. Deep venous thrombosis (DVT) prophylaxis with thromboembolic deterrent stockings (TEDS) and sequential compression devices (SCD). CODE STATUS: Full code. Total critical care time not including any procedures approx 35 mins. Please do not hesitate to call if any further questions or concerns. I, Ruth Moore, have conducted an independent examination of the patient and agree with the plan as detailed above by the resident and discussed during rounds. MORIS
[2020-02-17 13:28] LABS: MAGNESIUM LEVEL 2.2 MG/DL (1.8-2.4); POTASSIUM SERUM 3.6 MEQ/L (3.5-5.1)
--- NOTE | 2020-02-17 17:16 | ECHO ---
DATE OF PROCEDURE: 02/17/2020 REFERRING PHYSICIAN: Dr. Yeni Ceballos INDICATION: Acute stroke. HEIGHT: 193 cm WEIGHT: 63.0 kg DESCRIPTION: This was a limited echocardiogram, which included a bubble study. Rhythm was sinus. Images were moderately technically difficult. No 2D or Doppler measurements acquired. CONCLUSIONS: 1. Poor quality bubble study. No obvious intracardiac shunting from right to left observed. Because the bubble study was of poor quality, it is not very reliable. 2. Normal left ventricle systolic function. Left ventricular ejection fraction (LVEF) 60% by visual estimate. Normal right ventricle systolic function. 3. Mild aortic valve sclerosis. No aortic regurgitation. 4. Normal right ventricle systolic function.
[2020-02-18] VITALS (7 sets, daily range): BP systolic 109–129; BP diastolic 55–85
[2020-02-18] MEDS: D5W/0.45% SODIUM CHLORIDE 1,000 ML IV SCH (04:18)
[2020-02-18 05:29] LABS: HEMATOCRIT 32.8 % (42.0-52.0); HEMOGLOBIN 11.2 g/dl (13.5-17.5); MEAN CORPUSCULAR HEMOGLOBIN 31.2 pg (27.0-33.0); MEAN CORPUSCULAR HGB CONC 34.1 g/dl (32.0-36.5); MEAN CORPUSCULAR VOLUME 91.4 fl (80.0-96.0); PLATELET COUNT, AUTOMATED 205 10^3/uL (150-450); RED BLOOD COUNT 3.59 10^6/uL (4.30-6.10); WHITE BLOOD COUNT 6.5 10^3/uL (4.0-10.0)
[2020-02-18] MEDS: HumaLOG INSULIN (NovoLOG) PER UNIT SC SCH ×4 (05:56→18:00)
[2020-02-18 05:57] LABS: BLOOD UREA NITROGEN 4 MG/DL (7-18); CALCIUM LEVEL 8.1 MG/DL (8.8-10.2); CARBON DIOXIDE LEVEL 27 MEQ/L (21-32); CHLORIDE LEVEL 104 MEQ/L (98-107); CREATININE FOR GFR 0.59 MG/DL (0.70-1.30); GLOMERULAR FILTRATION RATE > 60.0 (>49); GLUCOSE, FASTING 79 MG/DL (70-100); MAGNESIUM LEVEL 1.7 MG/DL (1.8-2.4); POTASSIUM SERUM 3.1 MEQ/L (3.5-5.1); SODIUM LEVEL 138 MEQ/L (136-145)
[2020-02-18] MEDS: IPRATROPIUM 0.5MG/ALBUTEROL 2.5MG INH SOL UD 3ML (DUONEB)(J7620) NEB SCH ×4 (07:59→20:18)
[2020-02-18] MEDS ORDERED: FUROSEMIDE 20MG/2ML VIAL (J1940) IV ONE (08:00)
[2020-02-18 08:32] LABS: NT-PRO BNP 2083 PG/ML (<125)
[2020-02-18] MEDS: PANTOPRAZOLE 40MG VIAL (C9113 PER 1) IV SCH ×2 (08:44→20:56)
[2020-02-18 09:11] LABS: ABG BASE EXCESS 2.3 (-2.0-2.0); ABG O2 SATURATION 95.9 % (95.0-99.0); ABG PARTIAL PRESSURE CO2 25.1 mmHg (35.0-45.0); ABG PARTIAL PRESSURE O2 75.8 mmHg (75.0-100.0); ABG STANDARD HCO3 26.5 MEQ/L (22.0-26.0); ABG TOTAL CO2 23.8 MEQ/L (23.0-31.0)
[2020-02-18] MEDS: KCL 10MEQ/100ML SWI (KRUN) 10 MEQ in IV 1 EA IV SCH ×3 (09:40→15:06)
--- NOTE | 2020-02-18 09:48 | REP ---
REASON FOR EXAM: Followup. COMPARISON: Multiple, the latest 02/16/2020. The technique utilized in obtaining the radiograph has magnified the cardiac silhouette and accentuated the interstitial markings. The basilar opacities have overall improved, however, the right infrahilar density appears somewhat more consolidated. There is persistent mild bilateral CP angle blunting. The heart is not enlarged. The osseous structures are stable and intact. The patient has been extubated. IMPRESSION: Findings as described above. Followup is recommended. Electronically Signed by Rogelio Knowles DO 02/18/2020 09:55 A
[2020-02-18] MEDS ORDERED: SUCRALFATE SUSP 1GM/10ML UD NG SCH (12:00)
[2020-02-18] MEDS ORDERED: LIDOCAINE 1% MDV 20ML VIAL As Ordered ONE (12:21)
[2020-02-18] MEDS ORDERED: MAG SULF 1GM/100ML (MAG RUN) 1 GM in IV 1 EA IV ONE (12:45)
[2020-02-18] MEDS: THIAMINE INJection 250 MG in NS 100 ML IV SCH (13:19)
--- NOTE | 2020-02-18 13:45 | IPN ---
DATE: 02/18/2020 Patient remains disoriented. He was able to state his name and that it is 2020, but did not know where he was. He complained of shortness of breath (SOB) this morning with difficult to expectorate sputum, which was very thick, yellow white in nature. He is following commands. IV fluid was temporarily discontinued while awaiting chest x-ray report. The patient has failed a swallow evaluation, and with some IV fluids overnight he has received a total of 7 liters of fluids with a weight increase from 56.6 kg to 62.9 kg currently. He was given one dose of IV Lasix. He denies nausea or vomiting. Denies any bright red blood per rectum, melena or black tarry stools or recurrent hematemesis. He currently has no chest pain, pressure or tightness. VITALS: Temperature 98.3, pulse 78, respiratory rate 17, blood pressure 120/55, 96% on room air. Generally, awake, alert and oriented to person. Disoriented. Mild conversational dyspnea. Able to speak 4-5 word sentences. Positive use of respiratory accessory muscles. Anicteric. No jaundice. No pallor. Neck is supple. No jugular venous distention (JVD) or thyromegaly. Lungs diminished with bibasilar crackles. Heart S1, S2 sinus rhythm. Abdomen is soft, nontender, nondistended. Positive bowel sounds. Extremities no cyanosis, clubbing or any pitting edema. LABORATORY DATA: White count 6.5, hemoglobin 11, hematocrit 32, platelet count 205. Sodium 138, potassium 3.1, chloride 104, bicarb 27, BUN 4, creatinine 0.59, glucose 79, calcium 8.1, magnesium of 1.7, BNP of 2083. IMAGING STUDIES: Persistent right infrahilar density, more consolidated with persistent mild bilateral costophrenic angle blunting. Heart is not enlarged. Bibasilar opacities have overall improved. ASSESSMENT/PLAN: This is a 59-year-old -[place] male admitted due to altered mental status, was found to have a cerebrovascular accident (CVA), then developed respiratory distress, found to have pulmonary embolism, started on anticoagulation, and transitioned to heparin drip. The patient then developed a GI bleed requiring intubation due to hemorrhagic shock requiring 3 units of RBC transfusion, 2 packs of FFP, 1 pack of platelets and protamine. EGD showed two duodenal ulcers with severe esophagitis. He was put on Protonix and octreotide drip and treated with IV Zosyn for aspiration pneumonia. Due to acute GI bleed, the patient could not be anticoagulated and therefore received an IVC filter on 02/15/2020. The patient was extubated on 02/16/2020 and has remained stable and transferred to medical/surgical floor, currently failed on swallow evaluation and had been on IV fluids. Due to worsening distress this morning, IV fluids were discontinued, awaiting swallow evaluation. Patient is to have a PICC line placed in order for TPN to be started and for reevaluation of the patient's swallowing in one week. If the patient is to have no recurrent GI bleed, feeding tube can be placed if he remains an aspiration risk. CURRENT ISSUES: Acute metabolic encephalopathy secondary to aspiration pneumonia, GI bleed. Hemorrhagic shock,Acute kidney injury, CVA and pulmonary embolism (PE). Patient has improved somewhat, but not back to baseline. Aspiration pneumonia, completed Zosyn. Patient is awaiting a swallow evaluation. He had evaluation yesterday. He had been on IV fluids which were discontinued due to worsening distress this morning. Pulmonary embolism (PE). Could not be anticoagulated due to acute GI bleed. Had IVC filter placed by IR on 02/15/2020. Still on supplemental oxygen if needed. Hemorrhagic shock resolved. Status post Levophed drip, IV fluid hydration and blood transfusions. Acute kidney injury secondary to hemorrhagic shock from hypovolemia due to acute GI bleed from duodenal ulcers and severe esophagitis resolved. History of COPD not in any exacerbation currently. No wheezing on exam. Subsegmental pulmonary embolism (PE). Currently with IVC filter. Cannot be anticoagulated due to GI bleed. Acute hypoxic respiratory failure to hemorrhagic shock, Aspiration pneumonia GI bleed/PE, resolved. s/p intubation and successfully extubate. Currently on room air and saturating well. incentive spirometer to prevent atelectasis and acapella to prevent mucus plugging. Hypokalemia/hypomagnesemia. Currently being repleted. Diet. Nothing by mouth status. Awaiting swallow reevaluation. Patient failed swallow evaluation yesterday. PICC line to be placed if the patient continues to fail a nutrition consult with TPN. Discussed feeding tube with pt's today if repeat swallow eval next week still shows aspiration. trial of tpn for now. weekly prealbumin DVT prophylaxis: compression stockings. no AC due to recent GI bleed. MTDD
[2020-02-18] MEDS ORDERED: KCL 10MEQ IN STERILE WATER 100ML As Ordered ONE ×2 (13:50→15:02)
[2020-02-18] MEDS: SODIUM CHLORIDE 0.9% INJ 10 ML SYR IV PRN (16:14)
--- NOTE | 2020-02-18 17:27 | REP ---
PICC line insertion under ultrasound guidance. The procedure was performed by GREYSON Man, under the direct supervision of Dr. Quezada. The risks and benefits of the procedure were explained to the patient and informed consent was obtained both verbally and written. Directly prior to the start of the procedure, a formal timeout was completed in the procedure room. The right medial brachial vein was localized using ultrasound guidance. The skin was prepped and draped in the sterile fashion. 1 ml 1% lidocaine 10 mg/ml was used as a local anesthetic. Using ultrasound guidance the right medial brachial vein was cannulated and a 0.018 guidewire was inserted and advanced to the SVC using fluoroscopic guidance. The needle was removed and a 5.5 Algerian dilator and peel-away sheath was inserted over the guidewire. A 5.5 Algerian double lumen catheter was cut to the length of 45 cm. The dilator was removed and the catheter was inserted over the guide wire with the tip ending in the SVC. The peel-away sheath was removed and the catheter was flushed with heparinized saline as per hospital protocol. The catheter was affixed to the skin and a sterile dressing was applied. The patient tolerated the procedure well and there were no immediate complications. Less then 1 minute of fluoroscopy time was utilized for this procedure. Some fluoroscopic images are performed with last image hold technology. These images require no additional radiation. Reviewed by GREYSON [place] 02/18/2020 03:50 P Electronically Signed by Favio Quezada MD 02/18/2020 05:19 P
[2020-02-18] MEDS ORDERED: HumaLOG INSULIN (NovoLOG) PER UNIT SC SCH (18:00)
[2020-02-18] MEDS ORDERED: AMINO AC/ELECTROLYTE/DEX/CALC 2,000 ML IV SCH (18:00)
[2020-02-18] MEDS ORDERED: FAT EMULSION IV 20% 500 ML IV SCH (18:00)
[2020-02-18] MEDS: SODIUM CHLORIDE 0.9% INJ 10 ML SYR IV SCH (18:40)
[2020-02-19] MEDS: HumaLOG INSULIN (NovoLOG) PER UNIT SC SCH ×4 (00:19→17:40)
[2020-02-19 02:00] VITALS: BP 113/74
[2020-02-19 05:52] LABS: HEMATOCRIT 31.5 % (42.0-52.0); HEMOGLOBIN 10.6 g/dl (13.5-17.5); MEAN CORPUSCULAR HEMOGLOBIN 30.4 pg (27.0-33.0); MEAN CORPUSCULAR HGB CONC 33.7 g/dl (32.0-36.5); MEAN CORPUSCULAR VOLUME 90.3 fl (80.0-96.0); PLATELET COUNT, AUTOMATED 217 10^3/uL (150-450); RED BLOOD COUNT 3.49 10^6/uL (4.30-6.10); WHITE BLOOD COUNT 6.4 10^3/uL (4.0-10.0)
[2020-02-19 06:00] VITALS: BP 115/76
[2020-02-19] MEDS: SODIUM CHLORIDE 0.9% INJ 10 ML SYR IV SCH ×2 (06:02→17:42)
[2020-02-19 06:37] LABS: BLOOD UREA NITROGEN 11 MG/DL (7-18); CALCIUM LEVEL 8.2 MG/DL (8.8-10.2); CARBON DIOXIDE LEVEL 29 MEQ/L (21-32); CHLORIDE LEVEL 104 MEQ/L (98-107); CREATININE FOR GFR 0.54 MG/DL (0.70-1.30); GLOMERULAR FILTRATION RATE > 60.0 (>49); GLUCOSE, FASTING 113 MG/DL (70-100); MAGNESIUM LEVEL 1.7 MG/DL (1.8-2.4); POTASSIUM SERUM 3.2 MEQ/L (3.5-5.1); SODIUM LEVEL 137 MEQ/L (136-145)
[2020-02-19] MEDS: IPRATROPIUM 0.5MG/ALBUTEROL 2.5MG INH SOL UD 3ML (DUONEB)(J7620) NEB SCH ×4 (07:25→20:01)
[2020-02-19] MEDS: PANTOPRAZOLE 40MG VIAL (C9113 PER 1) IV SCH ×2 (08:23→20:33)
[2020-02-19] MEDS: KCL 10MEQ/100ML SWI (KRUN) 10 MEQ in IV 1 EA IV SCH ×4 (08:23→11:43)
[2020-02-19 10:00] VITALS: BP 137/79
--- NOTE | 2020-02-19 10:42 | IPN ---
DATE: 02/19/2020 This morning, the patient was asleep but arousable, did not speak, around 7:45 in the morning. Per nursing, the patient is disoriented but was able to answer questions yesterday. PHYSICAL EXAMINATION: VITAL SIGNS: Temperature 97.5, pulse 85, respiratory rate 19, blood pressure 115/76, 98% on room air. GENERAL: The patient is arousable, currently not speaking. No facial asymmetry. Dry mucous membranes. No jugular venous distention (JVD) or thyromegaly. LUNGS: Clear to auscultation in upper lobes, basilar crackles bilaterally, right greater than left. HEART: S1, S2. Sinus rhythm. No murmurs, rubs or gallops. ABDOMEN: Soft, nontender, nondistended. EXTREMITIES: No pitting edema. LABORATORY DATA: White count 6.4, hemoglobin 10, hematocrit 31, platelet count 217. Sodium 137, potassium 3.2, chloride 104, bicarbonate 29, BUN 11, creatinine 0.54, glucose 113, magnesium 1.7, BNP 2083. Chest x-ray on 02/18/2020 showed basilar opacities have improved, right infrahilar density, consolidated persistent mild bilateral costophrenic angle blunting. Heart is not enlarged. The patient has been extubated. ASSESSMENT AND PLAN: This is a 59-year-old -[place] male brought in due to confusion and was found to have a CVA, pulmonary embolism, hypoxic failure and hemorrhagic shock requiring intubated. Esophagogastroduodenoscopy (EGD) showed four deep duodenal ulcers and severe esophagitis. The patient was reversed with protamine given 3 RBCs and 2 fresh frozen plasma, 1 platelet transfusion with stable hemoglobin since the EGD. He was successfully given an IVC filter for pulmonary embolism due to inability to anticoagulate and was subsequently extubated successfully on 02/16/2020 and has remained stable. Due to failed swallow evaluation and persistent aspiration, peripherally inserted central catheter (PICC) line was placed on 02/18/2020. Currently on TPN, which was started on 02/18/2020. CURRENT ISSUES: 1. Acute metabolic encephalopathy secondary to aspiration pneumonia. 2. Gastrointestinal bleed. 3. Hemorrhagic shock. 4. Acute kidney injury. 5. CVA and pulmonary embolism. The patient is to be evaluated by acute rehabilitation unit. He cannot be anticoagulated for the CVA. We will continue with supportive care. Aspiration pneumonia, status post Zosyn. Still not stable for oral intake, failed swallowing evaluation, currently on TPN, head of bed at 30 degrees and aspiration precautions. Pulmonary embolism. Cannot be anticoagulated due to acute gastrointestinal bleed. IVC filter placed on 02/15/[address] Bryant, interventional radiology. Currently stable on room air. Hemorrhagic shock due to GI bleed. Status post Levophed drip, IV hydration, and blood transfusion, reversal with protamine for heparin being given for pulmonary embolism and CVA. Bilateral CVA, hypercoag workup to be done. Cannot be anticoagulated or given platelet therapy due to recent gastrointestinal bleed with four deep duodenal ulcers. Acute kidney injury, resolved. Due to hemorrhagic shock from hypovolemia due to active GI bleed from four duodenal ulcers and severe esophagitis. Currently at baseline creatinine. History of chronic obstructive pulmonary disease (COPD) . Currently stable without exacerbation. Pulmonary embolism, status post IVC filter by interventional radiology on 02/15/2020. The patient is on room air and appears to be comfortable. Incentive spirometry to prevent atelectasis, Acapella to prevent mucus plugging. Encourage early ambulation and ambulate with assistance four times a day and before sleep. Electrolyte abnormalities with hypokalemia and hypomagnesemia due to nothing by mouth status. Currently being repleted. Currently on TPN diet. Nothing by mouth due to aspiration and failed swallowing evaluation. PICC line placement on 02/18/2020 and TPN started per clinical research physician recommendations. The patient is currently receiving supplemental nutrition. We will check weekly prealbumin and recheck a swallowing evaluation weekly and advance diet if the patient improves. Deep vein thrombosis (DVT) prophylaxis with compression stockings. No anticoagulation due to recent gastrointestinal bleed. MTDD
[2020-02-19] MEDS: MAG SULF 1GM/100ML (MAG RUN) 1 GM in IV 1 EA IV SCH ×2 (12:59→14:08)
[2020-02-19 14:00] VITALS: BP 133/66
[2020-02-19] MEDS: THIAMINE INJection 250 MG in NS 100 ML IV SCH (14:33)
[2020-02-19 16:41] LABS: MAGNESIUM LEVEL 2.2 MG/DL (1.8-2.4); POTASSIUM SERUM 3.6 MEQ/L (3.5-5.1)
[2020-02-19 18:00] VITALS: BP 133/82
[2020-02-19] MEDS ORDERED: AMINO AC/ELECTROLYTE/DEX/CALC 2,000 ML IV SCH (18:00)
[2020-02-19] MEDS ORDERED: FAT EMULSION IV 20% 500 ML IV SCH (18:00)
[2020-02-19 22:00] VITALS: BP 132/82
[2020-02-20 02:00] VITALS: BP 133/84
[2020-02-20] MEDS: HumaLOG INSULIN (NovoLOG) PER UNIT SC SCH ×4 (05:37→17:43)
[2020-02-20] MEDS: SODIUM CHLORIDE 0.9% INJ 10 ML SYR IV SCH ×2 (05:38→18:16)
[2020-02-20 06:00] VITALS: BP 134/87
[2020-02-20 06:42] LABS: BLOOD UREA NITROGEN 12 MG/DL (7-18); C REACTIVE PROTEIN QUANTITATIV 6.86 MG/DL (0.00-0.30); CALCIUM LEVEL 8.6 MG/DL (8.8-10.2); CARBON DIOXIDE LEVEL 24 MEQ/L (21-32); CHLORIDE LEVEL 101 MEQ/L (98-107); CREATININE FOR GFR 0.54 MG/DL (0.70-1.30); GLOMERULAR FILTRATION RATE > 60.0 (>49); GLUCOSE, FASTING 85 MG/DL (70-100); MAGNESIUM LEVEL 1.9 MG/DL (1.8-2.4); POTASSIUM SERUM 3.8 MEQ/L (3.5-5.1); RHEUMATOID FACTOR QUANT < 10.0 IU/ML (<15.0); SODIUM LEVEL 132 MEQ/L (136-145)
[2020-02-20] MEDS: IPRATROPIUM 0.5MG/ALBUTEROL 2.5MG INH SOL UD 3ML (DUONEB)(J7620) NEB SCH ×3 (07:16→14:56)
[2020-02-20] MEDS: PANTOPRAZOLE 40MG VIAL (C9113 PER 1) IV SCH ×2 (09:37→22:07)
[2020-02-20] MEDS: THIAMINE INJection 250 MG in NS 100 ML IV SCH (09:37)
[2020-02-20 10:00] VITALS: BP 133/79
[2020-02-20 14:00] VITALS: BP 141/81
[2020-02-20] MEDS ORDERED: AMINO AC/ELECTROLYTE/DEX/CALC 2,000 ML IV SCH (18:00)
[2020-02-20] MEDS ORDERED: IPRATROPIUM 0.5MG/ALBUTEROL 2.5MG INH SOL UD 3ML (DUONEB)(J7620) NEB PRN (18:00)
[2020-02-20] MEDS ORDERED: FAT EMULSION IV 20% 500 ML IV SCH (18:00)
--- NOTE | 2020-02-20 18:12 | IPN ---
DATE: 02/20/2020 Afebrile overnight. He is not speaking to me this morning. He opens his eyes. Pleasant but is not responding. Per nursing, the patient does much better in the midday and afternoon and is much more conversant and interactive. No facial asymmetry. No jugular venous distention (JVD) or thyromegaly. PHYSICAL EXAMINATION: LUNGS: Diminished with crackles at the right base. Otherwise clear in the upper lobes. HEART: S1, S2. Sinus rhythm. ABDOMEN: Soft, nontender, nondistended. Positive bowel sounds. EXTREMITIES: No pitting edema. Laboratory data, microbiology and imaging studies have been reviewed. ASSESSMENT AND PLAN: This is a 59-year-old male, -[place], brought in due to confusion and was found to have CVA, pulmonary embolism, hypoxic respiratory failure and hemorrhagic shock with gastrointestinal bleed, requiring intubation. Esophagogastroduodenoscopy (EGD) showed four deep duodenal ulcers and severe esophagitis. He was placed on octreotide, Protonix drip, kept nothing by mouth with nasogastric tube and intravenous fluids. Postextubation, the patient completed Zosyn for aspiration pneumonia but failed a swallow evaluation, currently on TPN. 1. Acute metabolic encephalopathy secondary to aspiration pneumonia, gastrointestinal bleed, hemorrhagic shock, acute kidney injury, CVA, pulmonary embolism. The patient is requiring supportive care and improving. Acute rehabilitation unit has been consulted. 2. Aspiration pneumonia. Status post Zosyn. Still not stable for oral intake, currently on TPN. 3. Pulmonary embolism. Cannot be anticoagulated due to acute gastrointestinal bleed. IVC filter placement on 02/15/2020, stable on room air and saturating 100%. 4. Hemorrhagic shock requiring Levophed. 5. Gastrointestinal bleed, resolved. Hemoglobin and hematocrit remain stable. 6. Bilateral CVA. Echocardiogram with bubble study is inconclusive. The patient is being worked up for hypercoagulable state, cannot be anticoagulated or given anti platelet therapy due to recent gastrointestinal bleed with four deep ulcers and requiring 3 units red blood cell transfusion. 7. Acute kidney injury, resolved. 8. Chronic obstructive pulmonary disease (COPD). No exacerbation. 9. Electrolyte abnormalities. Supplemented. Currently on TPN. 10. Diet. Nothing by mouth and TPN managed by harness installer. [facility]
[2020-02-20 22:00] VITALS: BP 130/83
[2020-02-20] MEDS: SODIUM CHLORIDE 0.9% INJ 10 ML SYR IV PRN (22:15)
[2020-02-21] VITALS (7 sets, daily range): BP systolic 112–153; BP diastolic 55–96
[2020-02-21] MEDS: HumaLOG INSULIN (NovoLOG) PER UNIT SC SCH ×4 (06:00→18:00)
[2020-02-21] MEDS: SODIUM CHLORIDE 0.9% INJ 10 ML SYR IV SCH ×2 (06:00→18:54)
[2020-02-21 06:33] LABS: BLOOD UREA NITROGEN 13 MG/DL (7-18); CALCIUM LEVEL 9.3 MG/DL (8.8-10.2); CARBON DIOXIDE LEVEL 25 MEQ/L (21-32); CHLORIDE LEVEL 101 MEQ/L (98-107); CREATININE FOR GFR 0.55 MG/DL (0.70-1.30); GLOMERULAR FILTRATION RATE > 60.0 (>49); GLUCOSE, FASTING 91 MG/DL (70-100); MAGNESIUM LEVEL 1.6 MG/DL (1.8-2.4); POTASSIUM SERUM 3.9 MEQ/L (3.5-5.1); SODIUM LEVEL 131 MEQ/L (136-145)
[2020-02-21] MEDS ORDERED: MAGNESIUM OXIDE 400 MG TAB (MAG-OX) PO SCH (09:00)
[2020-02-21] MEDS ORDERED: MAG SULF 1GM/100ML (MAG RUN) 1 GM in IV 1 EA IV ONE (10:00)
[2020-02-21] MEDS: THIAMINE INJection 250 MG in NS 100 ML IV SCH (11:10)
[2020-02-21] MEDS: PANTOPRAZOLE 40MG VIAL (C9113 PER 1) IV SCH ×2 (11:11→21:01)
--- NOTE | 2020-02-21 14:33 | IPNPDOC ---
Date Seen The patient was seen on 02/21/20. Progress Note SUBJECTIVE: Patient seen and examined at bedside. Patient complains of feeling anxious about everything that happened to him, but otherwise denies any complaints including fevers, chills, chest pain, difficulty breathing, nausea, vomiting, diarrhea. Patient denies any pain. OBJECTIVE PHYSICAL EXAMINATION: VITAL SIGNS: Please see below. GENERAL: Frail man sitting in chair in no acute distress, slow to respond pleasant CARDIOVASCULAR: RRR, normal S1/2, no MRG appreciated RESPIRATORY: CTA B/L, no diabetes/R/R ABDOMINAL: Soft, nontender, nondistended EXTREMITIES: No edema, intact distal pulses SKIN: No rash or skin breakdown NEUROLOGICAL: Minimal strength in right lower extremity, 0/5 strength in left lower and left upper extremities, 3/5 strength in biceps muscle of right upper extremity PSYCHOLOGICAL: AAO 3, depressed appearing LABORATORY DATA, IMAGING STUDIES, MICROBIOLOGY: Please see below. ASSESSMENT AND PLAN: This is a 59-year-old male, -French, brought in due to confusion and was found to have CVA, pulmonary embolism, hypoxic respiratory failure and hemorrhagic shock with gastrointestinal bleed, requiring intubation. Esophagogastroduodenoscopy (EGD) showed four deep duodenal ulcers and severe esophagitis. He was placed on octreotide, Protonix drip, kept nothing by mouth with nasogastric tube and intravenous fluids. Postextubation, the patient completed Zosyn for aspiration pneumonia but failed a swallow evaluation, currently on TPN. Patient is being evaluated by a ARU and speech is assessing to see if we can d/c TPN and start diet. 1. Acute metabolic encephalopathy secondary to aspiration pneumonia, gastrointestinal bleed, hemorrhagic shock, acute kidney injury, CVA, pulmonary embolism. The patient is requiring supportive care and improving. Acute rehabilitation unit has been consulted. Appears to be resolving. 2. Aspiration pneumonia. Status post Zosyn. Still not stable for oral intake, currently on TPN. 3. Pulmonary embolism. Cannot be anticoagulated due to acute gastrointestinal bleed. IVC filter placement on 02/15/2020, stable on room air and saturating 100%. 4. Hemorrhagic shock requiring Levophed. Now resolved 5. Gastrointestinal bleed, resolved. Hemoglobin and hematocrit remain stable. 6. Bilateral CVA. Echocardiogram with bubble study is inconclusive. The patient is being worked up for hypercoagulable state, cannot be anticoagulated or given anti platelet therapy due to recent gastrointestinal bleed with four deep ulcers and requiring 3 units red blood cell transfusion. 7. Acute kidney injury, resolved. 8. Chronic obstructive pulmonary disease (COPD). No exacerbation at this time 9. Electrolyte abnormalities. Will continue to supplement as needed. Currently on TPN. 10. Diet. Nothing by mouth and TPN managed by auto striper. Appreciate speech therapy consult VS, I&O, 24H, Fishbone Vital Signs/I&O Vital Signs Date Time Temp Pulse Resp B/P (MAP) Pulse Ox O2 Delivery O2 Flow Rate FiO2 02/21/20 10:00 98.2 84 19 126/78 (94) 98 Room Air 02/16/20 11:00 5.0 28 I&O- Last 24 Hours up to 6 AM 02/21/20 06:00 Intake Total 2262.5 ml Output Total 2325 ml Balance -62.5 ml Laboratory Data 24H LABS Laboratory Tests 2 02/20/20 17:43: Bedside Glucose (Misc Panel) 91 02/20/20 23:50: Bedside Glucose (Misc Panel) 87 02/21/20 05:26: Anion Gap 5L, Glomerular Filtration Rate > 60.0, Calcium Level 9.3, Magnesium Level 1.6L 02/21/20 06:01: Bedside Glucose (Misc Panel) 102 02/21/20 11:48: Bedside Glucose (Misc Panel) 100 CBC/BMP Laboratory Tests 02/21/20 05:26 Microbiology Microbiology 02/14/20 Blood Culture - Final, Complete NO GROWTH AFTER 5 DAYS JULIO CESAR AVILA MD Feb 21, 2020 14:33
[2020-02-21] MEDS ORDERED: FAT EMULSION IV 20% 500 ML IV SCH (18:00)
[2020-02-21] MEDS ORDERED: AMINO AC/ELECTROLYTE/DEX/CALC 2,000 ML IV SCH (18:00)
[2020-02-22 02:00] VITALS: BP 138/93
[2020-02-22 06:00] VITALS: BP 143/91
[2020-02-22] MEDS: HumaLOG INSULIN (NovoLOG) PER UNIT SC SCH ×4 (06:00→17:53)
[2020-02-22] MEDS: SODIUM CHLORIDE 0.9% INJ 10 ML SYR IV SCH ×2 (06:21→17:53)
[2020-02-22 06:31] LABS: BLOOD UREA NITROGEN 15 MG/DL (7-18); CALCIUM LEVEL 8.5 MG/DL (8.8-10.2); CARBON DIOXIDE LEVEL 24 MEQ/L (21-32); CHLORIDE LEVEL 100 MEQ/L (98-107); CREATININE FOR GFR 0.49 MG/DL (0.70-1.30); GLOMERULAR FILTRATION RATE > 60.0 (>49); GLUCOSE, FASTING 83 MG/DL (70-100); MAGNESIUM LEVEL 1.8 MG/DL (1.8-2.4); SODIUM LEVEL 131 MEQ/L (136-145)
[2020-02-22] MEDS: SODIUM CHLORIDE 0.9% INJ 10 ML SYR IV PRN (09:33)
[2020-02-22] MEDS: PANTOPRAZOLE 40MG VIAL (C9113 PER 1) IV SCH ×2 (09:33→20:53)
[2020-02-22] MEDS ORDERED: VARIBAR PUDDING 40% w/v 230ML TUBE As Ordered ONE (10:29)
[2020-02-22] MEDS ORDERED: E-Z-PAQUE 96% w/w SUSP 176GM BTL As Ordered ONE (10:30)
[2020-02-22] MEDS ORDERED: VARIBAR NECTAR 40% w/v 240ML SUSP BTL As Ordered ONE (10:30)
[2020-02-22] MEDS ORDERED: BARIUM SULFATE 700 MG TABLET (E-Z-DISK) As Ordered ONE (10:30)
[2020-02-22 14:00] VITALS: BP 107/63
--- NOTE | 2020-02-22 16:54 | IPNPDOC ---
Text Note Date of Service The patient was seen on 02/22/20. NOTE SUBJECTIVE: Patient continues to be confused. Sometimes following commands shanna etimes not. He did tell me his name and spelt it out for me but could not tel me his day or where he was. He did say thank you when i finished his exam and was leaving the room. OBJECTIVE PHYSICAL EXAMINATION: VITAL SIGNS: Please see below. GENERAL: Frail man laying down in bed in no acute distress, slow to respond pleasant CARDIOVASCULAR: RRR, normal S1/2, no Murmur Rub or Gallop appreciated RESPIRATORY: CTA B/L, no diabetes/R/R ABDOMINAL: Soft, nontender, nondistended EXTREMITIES: No edema, intact distal pulses SKIN: No rash or skin breakdown NEUROLOGICAL: moving both upper extremities spontaneously however could not test lower extremity as pateint not following commands. He was moving both lower extremities so has at least 2/5 power LABORATORY DATA, IMAGING STUDIES, MICROBIOLOGY: Please see below. ASSESSMENT AND PLAN: This is a 59-year-old male, -[place], with h/o alcohol abuse, COPD/emphysema brought in to the ED o 02/08 due to confusion which was felt to be due to alcohol withdrawal/ wernicke encephalopathy and multiple acute CVAs. Started on eliquis for possible embolic strokes. On 02/12 he then developed SOB, found to have right subsegmental acute pulmonary embolism, bibasilar infiltrates and COPD exacerbation. He was transitioned to heparin drip. On 02/13 he had a Rapid assessment call for acute respiratory failure and pateint was urgently intubated for agonal respirations and NG tube placement post intubation showed massive GIB. The patient then developed hypotension with GI bleed requiring intubation due to hemorrhagic shock requiring 3 units of RBC transfusion, 2 packs of FFP, 1 pack of platelets and protamine. His bilateral basal infiltrates were felt to be due to aspiration pneumonia . Emergent Esophagogastroduodenoscopy (EGD) showed four deep duodenal ulcers and severe esophagitis. He was placed on octreotide, Protonix drip, kept nothing by mouth with nasogastric tube and intravenous fluids. He had an IVC filter placed as he cannot be anticoagulated. Postextubation, the patient completed Zosyn for aspiration pneumonia but failed a swallow evaluation, currently on TPN. Patient is being evaluated by a ARU and speech is assessing to see if we can d/c TPN and start diet. Acute metabolic encephalopathy secondary to alcohol withdrawal/ Wernicke encephalopathy and acute strokes. gastrointestinal bleed, hemorrhagic shock Still remains confused but some improvement. The patient is requiring supportive care. Acute rehabilitation unit has been consulted. Dysphagia with Aspiration pneumonia. Status post Zosyn. Still not stable for oral intake, currently on TPN. Cookie swallow today. Pulmonary embolism. Cannot be anticoagulated due to acute gastrointestinal bleed. IVC filter placement on 02/15/2020, stable on room air and saturating 100%. Hemorrhagic shock due to Acute GIB requiring Levophed. Now resolved Acute Gastrointestinal bleed, resolved. Due to duodenal ulcers and esophagitis Hemoglobin and hematocrit remain stable. Bilateral CVA. Echocardiogram with bubble study is inconclusive. The patient is being worked up for hypercoagulable state, cannot be anticoagulated or given anti platelet therapy due to recent gastrointestinal bleed with four deep ulcers and requiring 3 units red blood cell transfusion. Acute kidney injury, resolved. Chronic obstructive pulmonary disease (COPD). No exacerbation at this time Electrolyte abnormalities. Will continue to supplement as needed. Currently on TPN. Diet. Nothing by mouth and TPN managed by theatre program director. Appreciate speech therapy consult H/O Alcohol use disorder. VS,Fishbone, I+O VS, Fishbone, I+O Laboratory Tests 02/22/20 05:26 Vital Signs Date Time Temp Pulse Resp B/P (MAP) Pulse Ox O2 Delivery O2 Flow Rate FiO2 02/22/20 14:00 96.6 79 16 107/63 (78) 99 Room Air 02/16/20 11:00 5.0 28 I&O- Last 24 Hours up to 6 AM 02/22/20 06:00 Intake Total 1282.5 ml Output Total 1475 ml Balance -192.5 ml ABRAM FENTON MD Feb 22, 2020 16:54
[2020-02-22 18:00] VITALS: BP 109/63
[2020-02-22] MEDS ORDERED: AMINO AC/ELECTROLYTE/DEX/CALC 2,000 ML IV SCH (18:00)
[2020-02-22] MEDS ORDERED: FAT EMULSION IV 20% 500 ML IV SCH (18:00)
[2020-02-22 22:00] VITALS: BP 113/65
[2020-02-23 02:00] VITALS: BP 111/68
[2020-02-23] MEDS: HumaLOG INSULIN (NovoLOG) PER UNIT SC SCH ×4 (05:56→17:20)
[2020-02-23] MEDS: SODIUM CHLORIDE 0.9% INJ 10 ML SYR IV SCH ×2 (05:57→17:38)
[2020-02-23 06:00] VITALS: BP 128/86
[2020-02-23 06:25] LABS: BLOOD UREA NITROGEN 15 MG/DL (7-18); CALCIUM LEVEL 8.7 MG/DL (8.8-10.2); CARBON DIOXIDE LEVEL 26 MEQ/L (21-32); CHLORIDE LEVEL 100 MEQ/L (98-107); CREATININE FOR GFR 0.54 MG/DL (0.70-1.30); GLOMERULAR FILTRATION RATE > 60.0 (>49); GLUCOSE, FASTING 86 MG/DL (70-100); MAGNESIUM LEVEL 1.6 MG/DL (1.8-2.4); SODIUM LEVEL 131 MEQ/L (136-145)
[2020-02-23] MEDS ORDERED: MAG SULF 1GM/100ML (MAG RUN) 1 GM in IV 1 EA IV ONE (07:30)
[2020-02-23 08:06] LABS: ANTI THROMBIN 3 ANTIGEN IMMUNO 80 % (72-124); ANTI THROMBIN 3 FUNCT ACTIVITY 83 % (75-135)
[2020-02-23] MEDS: SODIUM CHLORIDE 0.9% INJ 10 ML SYR IV PRN (09:12)
[2020-02-23] MEDS: PANTOPRAZOLE 40MG VIAL (C9113 PER 1) IV SCH ×2 (09:12→20:37)
--- NOTE | 2020-02-23 09:41 | REP ---
Examination Requested: Cookie Swallow Reason For Exam: Evaluate diet The procedure was performed by GREYSON Man, under the direct supervision of Dr. Quezada. The procedure was performed with Raeann Garber from speech pathology present. 5 ml aliquots of pudding, nectar and honey consistency barium was administered. No aspiration or penetration was visualized throughout the course of the exam. The detailed report of this examination will be provided by speech pathology. 1.6 minutes of fluoroscopy time was utilized for this procedure. Reviewed by GREYSON [place] 02/22/2020 04:52 P Electronically Signed by Favio Quezada MD 02/23/2020 09:33 A
[2020-02-23 10:00] VITALS: BP 152/86
--- NOTE | 2020-02-23 12:53 | IPNPDOC ---
Text Note Date of Service The patient was seen on 02/23/20. NOTE SUBJECTIVE: Patient continues to be confused. Sometimes following commands shanna etimes not. He did tell me his name and spelt it out for me but could not tell me his day or where he was. He was able to flex his legs and bring up the knees to his chest. He was able to hold up his arms against gravity. Remains NPO as per speech therapy recommendations. Spoke with Seble about feeding tube placement. She is going to discuss with the rest of the family and let me know. OBJECTIVE PHYSICAL EXAMINATION: VITAL SIGNS: Please see below. GENERAL: Frail man laying down in bed in no acute distress, slow to respond pleasant CARDIOVASCULAR: RRR, normal S1/2, no Murmur Rub or Gallop appreciated RESPIRATORY: CTA B/L, no diabetes/R/R ABDOMINAL: Soft, nontender, nondistended EXTREMITIES: No edema, intact distal pulses SKIN: No rash or skin breakdown NEUROLOGICAL: moving both upper extremities spontaneously however could not test lower extremity as pateint not following commands. He was moving both lower extremities so has at least 2/5 power LABORATORY DATA, IMAGING STUDIES, MICROBIOLOGY: Please see below. ASSESSMENT AND PLAN: This is a 59-year-old male, -Armenian, with h/o alcohol abuse, COPD/emphysema brought in to the ED o 02/08 due to confusion which was felt to be due to alcohol withdrawal/ Wernicke encephalopathy and multiple acute ischemic CVAs noted on MRI done the next day. Started on eliquis for possible embolic strokes. On 02/12 he developed SOB, found to have right subsegmental acute pulmonary embolism, bibasilar infiltrates and COPD exacerbation. He was transitioned to heparin drip and started on Zosyn. On 02/13 he had a Rapid assessment call for acute respiratory failure and patient was urgently intubated for agonal respirations. NG tube placement post intubation showed massive GIB. About 1.2 liters of coffee ground materials were aspirated out. The patient developed hypotension with GI bleed and went into hemorrhagic shock requiring 3 units of RBC transfusion, 2 packs of FFP, 1 pack of platelets and protamine. Emergent Esophagogastroduodenoscopy (EGD) showed four deep duodenal ulcers and severe esophagitis. His bilateral basal infiltrates were felt to be due to aspiration pneumonia. He had an IVC filter placed as he cannot be anticoagulated. Postextubation, the patient completed Zosyn for aspiration pneumonia but failed a swallow evaluation, currently on TPN. Patient is being evaluated by a ARU and speech is assessing to see if we can d/c TPN and start diet. Mahendra continues to be encephalopathic till date. Acute metabolic encephalopathy secondary to alcohol withdrawal/ Wernicke encepha lopathy and acute strokes. gastrointestinal bleed, hemorrhagic shock Still remains confused but some improvement. The patient is requiring supportive care. Acute rehabilitation unit has been consulted. Aspiration pneumonia. resolved Status post Zosyn. Dysphagia persistent Unable to follow commands so ST cannot work with him currently on TPN. Will need a PEG tube. Pulmonary embolism. Cannot be anticoagulated due to acute gastrointestinal bleed. IVC filter placement on 02/15/2020, stable on room air and saturating 100%. Hemorrhagic shock due to Acute GIB requiring Levophed. Now resolved Acute Gastrointestinal bleed, resolved. Due to duodenal ulcers and esophagitis Hemoglobin and hematocrit remain stable. Bilateral CVA. Echocardiogram with bubble study is inconclusive. The patient is being worked up for hypercoagulable state, cannot be anticoagulated or given anti platelet therapy due to recent gastrointestinal bleed with four deep ulcers and requiring 3 units red blood cell transfusion. Acute kidney injury, resolved. Chronic obstructive pulmonary disease (COPD). No exacerbation at this time Electrolyte abnormalities. Will continue to supplement as needed. Currently on TPN. Diet. Nothing by mouth and TPN managed by algorithm developer. Appreciate speech therap y consult H/O Alcohol use disorder. VS,Fishbone, I+O VS, Fishbone, I+O Laboratory Tests 02/23/20 05:14 Vital Signs Date Time Temp Pulse Resp B/P (MAP) Pulse Ox O2 Delivery O2 Flow Rate FiO2 02/23/20 06:00 97.9 89 20 128/86 (100) 98 Room Air I&O- Last 24 Hours up to 6 AM 02/23/20 05:59 Intake Total 2370 ml Output Total 1025 ml Balance 1345 ml ABRAM FENTON MD Feb 23, 2020 08:22
[2020-02-23 14:00] VITALS: BP 157/97
[2020-02-23] MEDS ORDERED: AMINO AC/ELECTROLYTE/DEX/CALC 2,000 ML IV SCH (18:00)
[2020-02-23] MEDS ORDERED: FAT EMULSION IV 20% 500 ML IV SCH (18:00)
[2020-02-23 22:00] VITALS: BP 130/88
[2020-02-24] MEDS: HumaLOG INSULIN (NovoLOG) PER UNIT SC SCH ×4 (00:18→18:00)
[2020-02-24 02:00] VITALS: BP 128/84
[2020-02-24 03:13] LABS: BASO % 0.3 % (0.0-1.0); EOS # 0.1 10^3/uL (0.0-0.5); EOS % 1.3 % (0.0-3.0); HEMATOCRIT 22.2 % (42.0-52.0); HEMOGLOBIN 7.4 g/dl (13.5-17.5); LYMPH # 1.4 10^3/uL (1.5-5.0); LYMPH % 18.2 % (24.0-44.0); MEAN CORPUSCULAR HEMOGLOBIN 30.5 pg (27.0-33.0); MEAN CORPUSCULAR HGB CONC 33.3 g/dl (32.0-36.5); MEAN CORPUSCULAR VOLUME 91.4 fl (80.0-96.0); MONO # 0.6 10^3/uL (0.0-0.8); MONO % 7.9 % (0.0-5.0); NEUTROPHILS # 5.6 10^3/uL (1.5-8.5); NEUTROPHILS % 71.5 % (36.0-66.0); PLATELET COUNT, AUTOMATED 244 10^3/uL (150-450); RED BLOOD COUNT 2.43 10^6/uL (4.30-6.10); WHITE BLOOD COUNT 7.9 10^3/uL (4.0-10.0)
[2020-02-24 04:02] LABS: BLOOD UREA NITROGEN 15 MG/DL (7-18); CALCIUM LEVEL 9.1 MG/DL (8.8-10.2); CARBON DIOXIDE LEVEL 25 MEQ/L (21-32); CHLORIDE LEVEL 100 MEQ/L (98-107); CREATININE FOR GFR 0.49 MG/DL (0.70-1.30); GLOMERULAR FILTRATION RATE > 60.0 (>49); GLUCOSE, FASTING 85 MG/DL (70-100); MAGNESIUM LEVEL 1.8 MG/DL (1.8-2.4); POTASSIUM SERUM 4.4 MEQ/L (3.5-5.1); SODIUM LEVEL 131 MEQ/L (136-145)
[2020-02-24] MEDS: SODIUM CHLORIDE 0.9% INJ 10 ML SYR IV SCH ×2 (05:35→17:44)
[2020-02-24 06:00] VITALS: BP 128/82
[2020-02-24 08:10] LABS: FERRITIN 262 NG/ML (26-388); IRON (FE) 91 UG/DL (65-175); PERCENT SATURATION 48.7 % (19.7-50.0); TOTAL IRON BINDING CAPACITY 187 UG/DL (250-450)
[2020-02-24] MEDS: PANTOPRAZOLE 40MG VIAL (C9113 PER 1) IV SCH ×2 (08:42→20:54)
[2020-02-24] MEDS: THIAMINE 200MG/2ML VIAL (J3411 PER 100MG) IV SCH (09:57)
[2020-02-24] MEDS: SODIUM CHLORIDE 0.9% INJ 10 ML SYR IV PRN ×2 (09:58→20:55)
[2020-02-24 10:12] VITALS: BP 128/82
[2020-02-24 12:48] LABS: HEMATOCRIT 38.9 % (42.0-52.0); HEMOGLOBIN 12.6 g/dl (13.5-17.5); MEAN CORPUSCULAR HEMOGLOBIN 30.2 pg (27.0-33.0); MEAN CORPUSCULAR HGB CONC 32.4 g/dl (32.0-36.5); MEAN CORPUSCULAR VOLUME 93.3 fl (80.0-96.0); PLATELET COUNT, AUTOMATED 228 10^3/uL (150-450); RED BLOOD COUNT 4.17 10^6/uL (4.30-6.10); WHITE BLOOD COUNT 5.6 10^3/uL (4.0-10.0)
[2020-02-24 18:00] VITALS: BP 145/89
[2020-02-24] MEDS ORDERED: AMINO AC IV SCH (18:00)
[2020-02-24] MEDS ORDERED: MAGNESIUM SULFATE IV SCH (18:00)
[2020-02-24] MEDS ORDERED: DEX IV SCH (18:00)
[2020-02-24] MEDS ORDERED: CALC IV SCH (18:00)
[2020-02-24] MEDS ORDERED: FAT EMULSION IV 20% 500 ML IV SCH (18:00)
[2020-02-24] MEDS ORDERED: ELECTROLYTE IV SCH (18:00)
--- NOTE | 2020-02-24 19:27 | IPNPDOC ---
Text Note Date of Service The patient was seen on 02/24/20. NOTE SUBJECTIVE: Patient continues to be confused. Sometimes following commands shanna etimes not. He did tell me his name and spelt it out for me but could not tell me his day or where he was. He was able to flex his legs and bring up the knees to his chest. He was able to hold up his arms against gravity. Remains NPO as per speech therapy recommendations. Spoke with Seble about feeding tube placement. She is going to discuss with the rest of the family and let me know. OBJECTIVE PHYSICAL EXAMINATION: VITAL SIGNS: Please see below. GENERAL: Frail man laying down in bed in no acute distress, slow to respond pleasant CARDIOVASCULAR: RRR, normal S1/2, no Murmur Rub or Gallop appreciated RESPIRATORY: CTA B/L, no diabetes/R/R ABDOMINAL: Soft, nontender, nondistended EXTREMITIES: No edema, intact distal pulses SKIN: No rash or skin breakdown NEUROLOGICAL: moving both upper extremities spontaneously however could not test lower extremity as pateint not following commands. He was moving both lower extremities so has at least 2/5 power LABORATORY DATA, IMAGING STUDIES, MICROBIOLOGY: Please see below. ASSESSMENT AND PLAN: This is a 59-year-old male, -Ugandan, with h/o alcohol abuse, COPD/emphysema brought in to the ED o 02/08 due to confusion which was felt to be due to alcohol withdrawal/ Wernicke encephalopathy and multiple acute ischemic CVAs noted on MRI done the next day. Started on eliquis for possible embolic strokes. On 02/12 he developed SOB, found to have right subsegmental acute pulmonary embolism, bibasilar infiltrates and COPD exacerbation. He was transitioned to heparin drip and started on Zosyn. On 02/13 he had a Rapid assessment call for acute respiratory failure and patient was urgently intubated for agonal respirations. NG tube placement post intubation showed massive GIB. About 1.2 liters of coffee ground materials were aspirated out. The patient developed hypotension with GI bleed and went into hemorrhagic shock requiring 3 units of RBC transfusion, 2 packs of FFP, 1 pack of platelets and protamine. Emergent Esophagogastroduodenoscopy (EGD) showed four deep duodenal ulcers and severe esophagitis. His bilateral basal infiltrates were felt to be due to aspiration pneumonia. He had an IVC filter placed as he cannot be anticoagulated. Postextubation, the patient completed Zosyn for aspiration pneumonia but failed a swallow evaluation, currently on TPN. Patient is being evaluated by a ARU and speech is assessing to see if we can d/c TPN and start diet. Mahendra continues to be encephalopathic till date. Acute metabolic encephalopathy secondary to alcohol withdrawal/ Wernicke encepha lopathy and acute strokes. gastrointestinal bleed, hemorrhagic shock Still remains confused but some improvement. The patient is requiring supportive care. Acute rehabilitation unit has been consulted. Aspiration pneumonia. resolved Status post Zosyn. Dysphagia persistent Unable to follow commands so ST cannot work with him currently on TPN. Will need a PEG tube. Pulmonary embolism. Cannot be anticoagulated due to acute gastrointestinal bleed. IVC filter placement on 02/15/2020, stable on room air and saturating 100%. Hemorrhagic shock due to Acute GIB requiring Levophed. Now resolved Acute Gastrointestinal bleed, resolved. Due to duodenal ulcers and esophagitis Hemoglobin and hematocrit remain stable. Bilateral CVA. Echocardiogram with bubble study is inconclusive. The patient is being worked up for hypercoagulable state, cannot be anticoagulated or given anti platelet therapy due to recent gastrointestinal bleed with four deep ulcers and requiring 3 units red blood cell transfusion. Acute kidney injury, resolved. Chronic obstructive pulmonary disease (COPD). No exacerbation at this time Electrolyte abnormalities. Will continue to supplement as needed. Currently on TPN. Diet. Nothing by mouth and TPN managed by business intern. Appreciate speech therap y consult H/O Alcohol use disorder. VS,Fishbone, I+O VS, Fishbone, I+O Laboratory Tests 02/24/20 02:59 02/24/20 03:06 02/24/20 12:38 Vital Signs Date Time Temp Pulse Resp B/P (MAP) Pulse Ox O2 Delivery O2 Flow Rate FiO2 02/24/20 18:00 98.1 78 14 145/89 (107) 100 Room Air I&O- Last 24 Hours up to 6 AM 02/24/20 06:00 Intake Total 2070 ml Output Total 175 ml Balance 1895 ml ABRAM FENTON MD Feb 24, 2020 19:27
[2020-02-24 20:00] VITALS: BP 146/82
[2020-02-25] VITALS (7 sets, daily range): BP systolic 114–176; BP diastolic 70–120
[2020-02-25] MEDS: HumaLOG INSULIN (NovoLOG) PER UNIT SC SCH ×3 (06:00→12:00)
[2020-02-25 06:13] LABS: BASO % 0.5 % (0.0-1.0); EOS # 0.1 10^3/uL (0.0-0.5); EOS % 1.6 % (0.0-3.0); HEMATOCRIT 30.3 % (42.0-52.0); HEMOGLOBIN 10.4 g/dl (13.5-17.5); LYMPH # 1.2 10^3/uL (1.5-5.0); MEAN CORPUSCULAR HEMOGLOBIN 30.8 pg (27.0-33.0); MEAN CORPUSCULAR HGB CONC 34.3 g/dl (32.0-36.5); MEAN CORPUSCULAR VOLUME 89.6 fl (80.0-96.0); MONO # 0.6 10^3/uL (0.0-0.8); MONO % 10.2 % (0.0-5.0); NEUTROPHILS # 3.6 10^3/uL (1.5-8.5); PLATELET COUNT, AUTOMATED 235 10^3/uL (150-450); RED BLOOD COUNT 3.38 10^6/uL (4.30-6.10); WHITE BLOOD COUNT 5.5 10^3/uL (4.0-10.0)
[2020-02-25] MEDS: SODIUM CHLORIDE 0.9% INJ 10 ML SYR IV SCH ×2 (06:28→17:40)
[2020-02-25] MEDS: THIAMINE 200MG/2ML VIAL (J3411 PER 100MG) IV SCH (08:50)
[2020-02-25] MEDS: PANTOPRAZOLE 40MG VIAL (C9113 PER 1) IV SCH ×2 (08:51→20:01)
--- NOTE | 2020-02-25 12:39 | IPNPDOC ---
Text Note Date of Service The patient was seen on 02/25/20. NOTE SUBJECTIVE: cognitive sadler he seems to be doing a little better this am. He was able to follow some commands. He was able to work with speech therapist. OBJECTIVE PHYSICAL EXAMINATION: VITAL SIGNS: Please see below. GENERAL: Frail man laying down in bed in no acute distress, slow to respond pleasant CARDIOVASCULAR: RRR, normal S1/2, no Murmur Rub or Gallop appreciated RESPIRATORY: CTA B/L, no diabetes/R/R ABDOMINAL: Soft, nontender, nondistended EXTREMITIES: No edema, intact distal pulses SKIN: No rash or skin breakdown NEUROLOGICAL: moving both upper extremities spontaneously. He was moving both lower extremities so has at least 3/5 power LABORATORY DATA, IMAGING STUDIES, MICROBIOLOGY: Please see below. ASSESSMENT AND PLAN: This is a 59-year-old male, -Citizen Of [place], with h/o alcohol abuse, COPD/emphysema brought in to the ED o 02/08 due to confusion which was felt to be due to alcohol withdrawal/ Wernicke encephalopathy and multiple acute ischemic CVAs noted on MRI done the next day. Started on eliquis for possible embolic strokes. On 02/12 he developed SOB, found to have right subsegmental acute pulmonary embolism, bibasilar infiltrates and COPD exacerbation. He was transitioned to heparin drip and started on Zosyn. On 02/13 he had a Rapid assessment call for acute respiratory failure and patient was urgently intubated for agonal respirations. NG tube placement post intubation showed massive GIB. About 1.2 liters of coffee ground materials were aspirated out. The patient developed hypotension with GI bleed and went into hemorrhagic shock requiring 3 units of RBC transfusion, 2 packs of FFP, 1 pack of platelets and protamine. Emergent Esophagogastroduodenoscopy (EGD) showed four deep duodenal ulcers and severe esophagitis. His bilateral basal infiltrates were felt to be due to aspiration pneumonia. He had an IVC filter placed as he cannot be anticoagulated. Postextubation, the patient completed Zosyn for aspiration pneumonia but failed a swallow evaluation, currently on TPN. Patient is being evaluated by a ARU and speech is assessing to see if we can d/c TPN and start diet. Pateiant continues to be encephalopathic till date. Acute metabolic encephalopathy secondary to alcohol withdrawal/ Wernicke enc ephalopathy and acute strokes. gastrointestinal bleed, hemorrhagic shock Still remains confused but some improvement. The patient is requiring supportive care. Acute rehabilitation unit has been consulted and will accept pt after TPN is done. lul should either have a PEG tube or should be eating orally adequetely before he can go Low thiamine levels continue thiamine supplementation. Aspiration pneumonia. resolved Status post Zosyn. Dysphagia persistent ST trying to work with him but difficult due to his cognitive issue. currently on TPN. May need a PEG tube if oral intake is inadequete. Pulmonary embolism. Cannot be anticoagulated due to acute gastrointestinal bleed. IVC filter placement on 02/15/2020, stable on room air and saturating 100%. Hemorrhagic shock due to Acute GIB requiring Levophed. Now resolved Acute Gastrointestinal bleed, resolved. Due to duodenal ulcers and esophagitis Hemoglobin and hematocrit remain stable. Bilateral CVA. Echocardiogram with bubble study is inconclusive. The patient is being worked up for hypercoagulable state, cannot be anticoagulated or given anti platelet therapy due to recent gastrointestinal bleed with four deep ulcers and requiring 3 units red blood cell transfusion. Acute kidney injury, resolved. Chronic obstructive pulmonary disease (COPD). No exacerbation at this time Electrolyte abnormalities. Will continue to supplement as needed. Currently on TPN. Diet. Nothing by mouth and TPN managed by chalk extruding machine operator. Appreciate speech therapy consult H/O Alcohol use disorder. VS,Camacho, I+O VS, Camacho, I+O Laboratory Tests 02/24/20 12:38 02/25/20 05:29 Vital Signs Date Time Temp Pulse Resp B/P (MAP) Pulse Ox O2 Delivery O2 Flow Rate FiO2 02/25/20 10:00 99.1 110 22 114/74 (87) 95 Room Air I&O- Last 24 Hours up to 6 AM 02/25/20 06:00 Intake Total 540 ml Balance 540 ml ABRAM FENTON MD Feb 25, 2020 12:39
[2020-02-25] MEDS ORDERED: [UNRECOGNIZED DRUG - MIXTURE] IV SCH ×4 (18:00)
[2020-02-25] MEDS ORDERED: FAT EMULSION IV 20% 500 ML IV SCH (18:00)
[2020-02-26 00:11] LABS: ANTINUCLEAR ANTIBODIES DIRECT Negative (Negative); CARDIOLIPIN IGA ANTIBODY <9 APL U/mL (0-11); CARDIOLIPIN IGG ANTIBODY <9 GPL U/mL (0-14); CARDIOLIPIN IGM ANTIBODY <9 MPL U/mL (0-12)
[2020-02-26 02:00] VITALS: BP 142/98
[2020-02-26] MEDS: HALOPERIDOL 5MG/ML VIAL (J1630 PER 1) IV PRN ×2 (02:52→23:09)
[2020-02-26] MEDS: SODIUM CHLORIDE 0.9% INJ 10 ML SYR IV SCH ×2 (05:30→18:04)
[2020-02-26 06:00] VITALS: BP 158/91
[2020-02-26 06:50] LABS: BASO % 0.5 % (0.0-1.0); EOS # 0.1 10^3/uL (0.0-0.5); EOS % 1.2 % (0.0-3.0); HEMATOCRIT 31.3 % (42.0-52.0); HEMOGLOBIN 10.6 g/dl (13.5-17.5); LYMPH # 1.1 10^3/uL (1.5-5.0); LYMPH % 18.9 % (24.0-44.0); MEAN CORPUSCULAR HEMOGLOBIN 30.8 pg (27.0-33.0); MEAN CORPUSCULAR HGB CONC 33.9 g/dl (32.0-36.5); MONO # 0.5 10^3/uL (0.0-0.8); MONO % 8.9 % (0.0-5.0); NEUTROPHILS # 4.2 10^3/uL (1.5-8.5); PLATELET COUNT, AUTOMATED 226 10^3/uL (150-450); RED BLOOD COUNT 3.44 10^6/uL (4.30-6.10)
[2020-02-26] MEDS: THIAMINE 200MG/2ML VIAL (J3411 PER 100MG) IV SCH (08:20)
[2020-02-26] MEDS: PANTOPRAZOLE 40MG VIAL (C9113 PER 1) IV SCH ×2 (08:20→20:32)
[2020-02-26 14:00] VITALS: BP 157/91
--- NOTE | 2020-02-26 17:32 | IPNPDOC ---
Text Note Date of Service The patient was seen on 02/26/20. NOTE Subjective: Patient continues to be confused, follows simple commands. He was able to swallow few pieces of food OBJECTIVE PHYSICAL EXAMINATION: VITAL SIGNS: Please see below. GENERAL: Cachectic male, not oriented in place CARDIOVASCULAR: RRR, normal S1/2, no Murmur Rub or Gallop appreciated RESPIRATORY: CTA B/L, no diabetes/R/R ABDOMINAL: Soft, nontender, nondistended EXTREMITIES: No edema, intact distal pulses SKIN: No rash or skin breakdown NEUROLOGICAL: moving both upper extremities spontaneously. No nuchal rigidity, follows simple commands Assessment and plan: This is a 59-year-old male, -Angolan, with h/o alcohol abuse, COPD/emphysema brought in to the ED o 02/08 due to confusion which was felt to be due to alcohol withdrawal/ Wernicke encephalopathy and multiple acute ischemic CVAs noted on MRI done the next day. Started on eliquis for possible e mbolic strokes. On 02/12 he developed SOB, found to have right subsegmental acute pulmonary embolism, bibasilar infiltrates and COPD exacerbation. He was transitioned to heparin drip and started on Zosyn. On 02/13 he had a Rapid assessment call for acute respiratory failure and patient was urgently intubated for agonal respirations. NG tube placement post intubation showed massive GIB. About 1.2 liters of coffee ground materials were aspirated out. The patient developed hypotension with GI bleed and went into hemorrhagic shock requiring 3 units of RBC transfusion, 2 packs of FFP, 1 pack of platelets and protamine. Emergent Esophagogastroduodenoscopy (EGD) showed four deep duodenal ulcers and severe esophagitis. His bilateral basal infiltrates were felt to be due to aspiration pneumonia. He had an IVC filter placed as he cannot be anticoagulated. Postextubation, the patient completed Zosyn for aspiration pneumonia but failed a swallow evaluation, currently on TPN. Patient is being evaluated by a ARU and speech is assessing to see if we can d/c TPN and start diet. Patient continues to be encephalopathic till date. Acute metabolic encephalopathy Multifactorial, most likely secondary to Wernicke encephalopathy, recent ischemic stroke Slight improvement today Await ARU consult. Aspiration pneumonia Secondary to severe oropharyngeal dysfunction after stroke and alcohol withd aida Completed course of Zosyn Dysphagia ST follows him Currently on the TPN Most likely patient will need PEG Will discuss with power of gambling cashier PEG tube placement Pulmonary embolism Patient is not anticoagulated due to recent massive GI bleed IVC filter placed Acute Gastrointestinal bleed, resolved. Due to duodenal ulcers and esophagitis Hemoglobin and hematocrit remain stable. Continue PPI Bilateral CVA Will start statin We'll hold aspirin due to recent massive GI bleed Acute kidney injury resolved. Chronic obstructive pulmonary disease (COPD). No exacerbation at this time VS,Fishbone, I+O VS, Fishbone, I+O Laboratory Tests 02/26/20 06:34 Vital Signs Date Time Temp Pulse Resp B/P (MAP) Pulse Ox O2 Delivery O2 Flow Rate FiO2 02/26/20 14:00 97.6 93 20 157/91 (113) 100 Room Air I&O- Last 24 Hours up to 6 AM 02/26/20 06:00 Intake Total 2650 ml Output Total 100 ml Balance 2550 ml RODOLFO YUAN Feb 26, 2020 17:32
[2020-02-26] MEDS ORDERED: FAT EMULSION IV 20% 500 ML IV SCH (18:00)
[2020-02-26] MEDS ORDERED: AMINO AC/ELECTROLYTE/DEX/CALC 2,000 ML IV SCH (18:00)
[2020-02-26 18:48] LABS: ALBUMIN 2.2 GM/DL (3.2-5.2); ALT/SGPT 10 U/L (12-78); BILIRUBIN,TOTAL 0.4 MG/DL (0.2-1.0); BLOOD UREA NITROGEN 15 MG/DL (7-18); CALCIUM LEVEL 8.9 MG/DL (8.8-10.2); CARBON DIOXIDE LEVEL 27 MEQ/L (21-32); CHLORIDE LEVEL 100 MEQ/L (98-107); CREATININE FOR GFR 0.53 MG/DL (0.70-1.30); GLOMERULAR FILTRATION RATE > 60.0 (>49); GLUCOSE, FASTING 90 MG/DL (70-100); PHOSPHORUS LEVEL 4.3 MG/DL (2.5-4.9); POTASSIUM SERUM 4.1 MEQ/L (3.5-5.1); SODIUM LEVEL 132 MEQ/L (136-145); TOTAL PROTEIN 6.3 GM/DL (6.4-8.2)
[2020-02-26 22:00] VITALS: BP 145/93
[2020-02-27] MEDS: ACETAMINOPHEN 650MG ER TAB (TYLENOL ARTHRITIS) PO SCH ×2 (05:53→17:46)
[2020-02-27] MEDS: SODIUM CHLORIDE 0.9% INJ 10 ML SYR IV SCH ×2 (05:54→17:47)
[2020-02-27 06:00] VITALS: BP 144/90
[2020-02-27 06:07] LABS: BASO % 0.4 % (0.0-1.0); EOS # 0.1 10^3/uL (0.0-0.5); EOS % 1.3 % (0.0-3.0); HEMATOCRIT 30.7 % (42.0-52.0); HEMOGLOBIN 10.3 g/dl (13.5-17.5); LYMPH # 0.9 10^3/uL (1.5-5.0); LYMPH % 16.9 % (24.0-44.0); MEAN CORPUSCULAR HEMOGLOBIN 30.5 pg (27.0-33.0); MEAN CORPUSCULAR HGB CONC 33.6 g/dl (32.0-36.5); MEAN CORPUSCULAR VOLUME 90.8 fl (80.0-96.0); MONO # 0.5 10^3/uL (0.0-0.8); MONO % 8.5 % (0.0-5.0); NEUTROPHILS # 3.9 10^3/uL (1.5-8.5); NEUTROPHILS % 72.5 % (36.0-66.0); PLATELET COUNT, AUTOMATED 222 10^3/uL (150-450); RED BLOOD COUNT 3.38 10^6/uL (4.30-6.10); WHITE BLOOD COUNT 5.4 10^3/uL (4.0-10.0)
[2020-02-27 06:31] LABS: ALT/SGPT 9 U/L (12-78); BILIRUBIN,TOTAL 0.4 MG/DL (0.2-1.0); BLOOD UREA NITROGEN 13 MG/DL (7-18); CARBON DIOXIDE LEVEL 26 MEQ/L (21-32); CHLORIDE LEVEL 101 MEQ/L (98-107); CREATININE FOR GFR 0.55 MG/DL (0.70-1.30); GLOMERULAR FILTRATION RATE > 60.0 (>49); GLUCOSE, FASTING 97 MG/DL (70-100); MAGNESIUM LEVEL 1.7 MG/DL (1.8-2.4); PHOSPHORUS LEVEL 4.3 MG/DL (2.5-4.9); SODIUM LEVEL 133 MEQ/L (136-145); TOTAL PROTEIN 6.6 GM/DL (6.4-8.2)
[2020-02-27] MEDS ORDERED: MAG SULF 1GM/100ML (MAG RUN) 1 GM in IV 1 EA IV ONE (09:00)
[2020-02-27] MEDS: SPIRONOLACTONE 25 MG TAB PO SCH (09:41)
[2020-02-27] MEDS: ATORVASTATIN 20 MG TAB PO SCH (09:42)
[2020-02-27] MEDS: THIAMINE 200MG/2ML VIAL (J3411 PER 100MG) IV SCH (09:42)
[2020-02-27] MEDS: PANTOPRAZOLE 40MG VIAL (C9113 PER 1) IV SCH ×2 (09:43→20:42)
--- NOTE | 2020-02-27 13:12 | IPNPDOC ---
Text Note Date of Service The patient was seen on 02/27/20. NOTE Subjective: Patient's mental status improved today. He was able to communicate and answer simple questions. Follows simple commands. He still doesn't have appetite OBJECTIVE PHYSICAL EXAMINATION: VITAL SIGNS: Please see below. GENERAL: Cachectic male, not oriented in place CARDIOVASCULAR: RRR, normal S1/2, no Murmur Rub or Gallop appreciated RESPIRATORY: CTA B/L, no diabetes/R/R ABDOMINAL: Soft, nontender, nondistended EXTREMITIES: No edema, intact distal pulses SKIN: No rash or skin breakdown NEUROLOGICAL: moving both upper extremities spontaneously. No nuchal rigidity, follows simple commands Assessment and plan: This is a 59-year-old male, -Yemeni, with h/o alcohol abuse, COPD/emphysema brought in to the ED o 02/08 due to confusion which was felt to b e due to alcohol withdrawal/ Wernicke encephalopathy and multiple acute ischemic CVAs noted on MRI done the next day. Started on eliquis for possible embolic strokes. On 02/12 he developed SOB, found to have right subsegmental acute pulmonary embolism, bibasilar infiltrates and COPD exacerbation. He was transitioned to heparin drip and started on Zosyn. On 02/13 he had a Rapid assessment call for acute respiratory failure and patient was urgently intubated for agonal respirations. NG tube placement post intubation showed massive GIB. About 1.2 liters of coffee ground materials were aspirated out. The patient developed hypotension with GI bleed and went into hemorrhagic shock requiring 3 units of RBC transfusion, 2 packs of FFP, 1 pack of platelets and protamine. Emergent Esophagogastroduodenoscopy (EGD) showed four deep duodenal ulcers and severe esophagitis. His bilateral basal infiltrates were felt to be due to aspiration pneumonia. He had an IVC filter placed as he cannot be an ticoagulated. Postextubation, the patient completed Zosyn for aspiration pneumonia but failed a swallow evaluation, currently on TPN. Patient is being evaluated by a ARU and speech is assessing to see if we can d/c TPN and start diet. Patient continues to be encephalopathic till date. Acute metabolic encephalopathy Multifactorial, most likely secondary to Wernicke encephalopathy, recent ischem ic stroke Continues to improve today, patient is more communicative Await ARU consult. Aspiration pneumonia Secondary to severe oropharyngeal dysfunction after stroke and alcohol withdrawal Completed course of Zosyn Dysphagia ST follows him Currently on the TPN Most likely patient will need PEG His wants to place PEG Pulmonary embolism Patient is not anticoagulated due to recent massive GI bleed IVC filter placed Acute Gastrointestinal bleed, resolved. Due to duodenal ulcers and esophagitis Hemoglobin and hematocrit remain stable. Continue PPI Bilateral CVA Will start statin We'll hold aspirin due to recent massive GI bleed Acute kidney injury resolved. Chronic obstructive pulmonary disease (COPD). No exacerbation at this time VS,Fishbone, I+O VS, Fishbone, I+O Laboratory Tests 02/26/20 18:11 02/27/20 05:51 Vital Signs Date Time Temp Pulse Resp B/P (MAP) Pulse Ox O2 Delivery O2 Flow Rate FiO2 02/27/20 06:00 98.6 86 19 144/90 (108) 96 Room Air I&O- Last 24 Hours up to 6 AM 02/27/20 06:00 Intake Total 2070 ml Output Total 200 ml Balance 1870 ml RODOLFO YUAN DO Feb 27, 2020 13:12
[2020-02-27] MEDS: DRONABINOL 2.5 MG CAP (MARINOL) PO SCH ×3 (13:50→20:42)
[2020-02-27 14:00] VITALS: BP 140/90
[2020-02-27] MEDS ORDERED: FAT EMULSION IV 20% 500 ML IV SCH (18:00)
[2020-02-27] MEDS ORDERED: AMINO AC/ELECTROLYTE/DEX/CALC 2,000 ML IV SCH (18:00)
[2020-02-27 22:00] VITALS: BP 164/92
[2020-02-28] MEDS: SODIUM CHLORIDE 0.9% INJ 10 ML SYR IV SCH (05:38)
[2020-02-28 06:00] VITALS: BP 148/87
[2020-02-28 07:14] LABS: BASO % 0.4 % (0.0-1.0); EOS # 0.1 10^3/uL (0.0-0.5); EOS % 1.2 % (0.0-3.0); HEMATOCRIT 29.1 % (42.0-52.0); HEMOGLOBIN 9.5 g/dl (13.5-17.5); LYMPH # 0.8 10^3/uL (1.5-5.0); LYMPH % 9.8 % (24.0-44.0); MEAN CORPUSCULAR HEMOGLOBIN 29.8 pg (27.0-33.0); MEAN CORPUSCULAR HGB CONC 32.6 g/dl (32.0-36.5); MEAN CORPUSCULAR VOLUME 91.2 fl (80.0-96.0); MONO # 0.6 10^3/uL (0.0-0.8); NEUTROPHILS # 6.9 10^3/uL (1.5-8.5); PLATELET COUNT, AUTOMATED 237 10^3/uL (150-450); RED BLOOD COUNT 3.19 10^6/uL (4.30-6.10); WHITE BLOOD COUNT 8.5 10^3/uL (4.0-10.0)
[2020-02-28 07:26] LABS: ALBUMIN 2.2 GM/DL (3.2-5.2); ALT/SGPT 9 U/L (12-78); BILIRUBIN,TOTAL 0.7 MG/DL (0.2-1.0); BLOOD UREA NITROGEN 14 MG/DL (7-18); CALCIUM LEVEL 8.8 MG/DL (8.8-10.2); CARBON DIOXIDE LEVEL 26 MEQ/L (21-32); CHLORIDE LEVEL 100 MEQ/L (98-107); CREATININE FOR GFR 0.55 MG/DL (0.70-1.30); GLOMERULAR FILTRATION RATE > 60.0 (>49); GLUCOSE, FASTING 81 MG/DL (70-100); MAGNESIUM LEVEL 1.5 MG/DL (1.8-2.4); POTASSIUM SERUM 4.1 MEQ/L (3.5-5.1); SODIUM LEVEL 132 MEQ/L (136-145); TOTAL PROTEIN 6.3 GM/DL (6.4-8.2)
[2020-02-28] MEDS: DRONABINOL 2.5 MG CAP (MARINOL) PO SCH ×5 (07:30→20:57)
[2020-02-28] MEDS: THIAMINE 200MG/2ML VIAL (J3411 PER 100MG) IV SCH (08:43)
[2020-02-28] MEDS: PANTOPRAZOLE 40MG VIAL (C9113 PER 1) IV SCH (08:43)
[2020-02-28] MEDS ORDERED: MAG SULF 1GM/100ML (MAG RUN) 1 GM in IV 1 EA IV ONE (09:00)
[2020-02-28] MEDS: SPIRONOLACTONE 25 MG TAB PO SCH (10:23)
[2020-02-28] MEDS: ATORVASTATIN 20 MG TAB PO SCH (10:23)
[2020-02-28] MEDS: SODIUM CHLORIDE 0.9% INJ 10 ML SYR IV PRN (11:06)
[2020-02-28] MEDS ORDERED: THIA100TA PO (11:21)
[2020-02-28] MEDS ORDERED: OMEP-218 PO (11:21)
[2020-02-28] MEDS ORDERED: ATOR1TAB21 PO (11:21)
[2020-02-28] MEDS ORDERED: DRON2.5C11 PO (11:21)
--- NOTE | 2020-02-28 13:59 | IPNPDOC ---
Text Note Date of Service The patient was seen on 02/28/20. NOTE Subjective: No any acute events overnight. Follows simple commands. He still doesn't have appetite OBJECTIVE PHYSICAL EXAMINATION: VITAL SIGNS: Please see below. GENERAL: Cachectic male, not oriented in place CARDIOVASCULAR: RRR, normal S1/2, no Murmur Rub or Gallop appreciated RESPIRATORY: CTA B/L, no diabetes/R/R ABDOMINAL: Soft, nontender, nondistended EXTREMITIES: No edema, intact distal pulses SKIN: No rash or skin breakdown NEUROLOGICAL: moving both upper extremities spontaneously. No nuchal rigidity, follows simple commands Assessment and plan: This is a 59-year-old male, -Irish, with h/o alcohol abuse, COPD/emphysema brought in to the ED o 02/08 due to confusion which was felt to be due to alcohol withdrawal/ Wernicke encephalopathy and multiple acute ischemic CVAs noted on MRI done the next day. Started on eliquis for possible embolic strokes. On 02/12 he developed SOB, found to have right subsegmental acute pulmonary embolism, bibasilar infiltrates and COPD exacerbation. He was transitioned to heparin drip and started on Zosyn. On 02/13 he had a Rapid assessment call for acute respiratory failure and patient was urgently intubated for agonal respirations. NG tube placement post intubation showed massive GIB. About 1.2 liters of coffee ground materials were aspirated out. The patient developed hypotension with GI bleed and went into hemorrhagic shock requiring 3 units of RBC transfusion, 2 packs of FFP, 1 pack of platelets and protamine. Emergent Esophagogastroduodenoscopy (EGD) showed four deep duodenal ulcers and severe esophagitis. His bilateral basal infiltrates were felt to be due to aspiration pneumonia. He had an IVC filter placed as he cannot be anticoagulated. Postextubation, the patient completed Zosyn for aspiration pneumonia but failed a swallow evaluation, currently on TPN. Patient is being evaluated by a ARU and speech is assessing to see if we can d/c TPN and start diet. Acute metabolic encephalopathy Multifactorial, most likely secondary to Wernicke encephalopathy, recent ischemic stroke There is possibility that this level of mentation is his a new baseline Aspiration pneumonia Secondary to severe oropharyngeal dysfunction after stroke and alcohol withdrawal Completed course of Zosyn Dysphagia ST follows him, diet was modified. Patient does not have severe oropharyngeal dysfunction and his able to swallow. I stopped TPN Pulmonary embolism Patient is not anticoagulated due to recent massive GI bleed IVC filter placed Acute Gastrointestinal bleed, resolved. Due to duodenal ulcers and esophagitis Hemoglobin and hematocrit remain stable. Continue PPI Bilateral CVA started statin We'll hold aspirin due to recent massive GI bleed Acute kidney injury resolved. Chronic obstructive pulmonary disease (COPD). No exacerbation at this time Cachexia Patient has low BMI, low albumin, bitemporal wasting I started Marinol to increase his appetite Appreciate/agree with shear operator consult VS,Camacho, I+O VS, Camacho, I+O Laboratory Tests 02/28/20 06:28 Vital Signs Date Time Temp Pulse Resp B/P (MAP) Pulse Ox O2 Delivery O2 Flow Rate FiO2 02/28/20 06:00 97.7 88 18 148/87 (107) 100 Room Air I&O- Last 24 Hours up to 6 AM 02/28/20 06:00 Intake Total 1200 ml Output Total 300 ml Balance 900 ml RODOLFO YUAN DO Feb 28, 2020 13:58
[2020-02-28 14:00] VITALS: BP 146/92
[2020-02-28] MEDS: OMEPRAZOLE 20 MG CAP PO SCH (20:58)
[2020-02-28 22:00] VITALS: BP 141/72
[2020-02-29 06:00] VITALS: BP 139/76
[2020-02-29 06:00] LABS: BASO % 0.4 % (0.0-1.0); EOS # 0.1 10^3/uL (0.0-0.5); EOS % 0.7 % (0.0-3.0); HEMATOCRIT 39.9 % (42.0-52.0); HEMOGLOBIN 13.1 g/dl (13.5-17.5); LYMPH # 0.7 10^3/uL (1.5-5.0); LYMPH % 9.8 % (24.0-44.0); MEAN CORPUSCULAR HEMOGLOBIN 29.6 pg (27.0-33.0); MEAN CORPUSCULAR HGB CONC 32.8 g/dl (32.0-36.5); MEAN CORPUSCULAR VOLUME 90.3 fl (80.0-96.0); MONO # 0.6 10^3/uL (0.0-0.8); MONO % 7.6 % (0.0-5.0); NEUTROPHILS % 80.7 % (36.0-66.0); PLATELET COUNT, AUTOMATED 189 10^3/uL (150-450); RED BLOOD COUNT 4.42 10^6/uL (4.30-6.10); WHITE BLOOD COUNT 7.4 10^3/uL (4.0-10.0)
[2020-02-29 06:13] LABS: ALBUMIN 2.2 GM/DL (3.2-5.2); ALT/SGPT 12 U/L (12-78); BLOOD UREA NITROGEN 12 MG/DL (7-18); CALCIUM LEVEL 9.1 MG/DL (8.8-10.2); CARBON DIOXIDE LEVEL 24 MEQ/L (21-32); CHLORIDE LEVEL 101 MEQ/L (98-107); CREATININE FOR GFR 0.68 MG/DL (0.70-1.30); GLOMERULAR FILTRATION RATE > 60.0 (>49); GLUCOSE, FASTING 75 MG/DL (70-100); MAGNESIUM LEVEL 1.8 MG/DL (1.8-2.4); POTASSIUM SERUM 4.4 MEQ/L (3.5-5.1); SODIUM LEVEL 133 MEQ/L (136-145); TOTAL PROTEIN 7.1 GM/DL (6.4-8.2)
[2020-02-29] MEDS: OMEPRAZOLE 20 MG CAP PO SCH ×2 (08:46→20:35)
[2020-02-29] MEDS: DRONABINOL 2.5 MG CAP (MARINOL) PO SCH ×4 (08:46→20:35)
[2020-02-29] MEDS: SPIRONOLACTONE 25 MG TAB PO SCH (08:46)
[2020-02-29] MEDS: ATORVASTATIN 20 MG TAB PO SCH (08:46)
[2020-02-29] MEDS: THIAMINE 200MG/2ML VIAL (J3411 PER 100MG) IV SCH (08:47)
--- NOTE | 2020-02-29 12:24 | IPNPDOC ---
Text Note Date of Service The patient was seen on 02/29/20. NOTE Subjective: No any acute events overnight. Follows simple commands. He developed flat affect, barely communicative His appetite slightly improved OBJECTIVE PHYSICAL EXAMINATION: VITAL SIGNS: Please see below. GENERAL: Cachectic male, not oriented in place CARDIOVASCULAR: RRR, normal S1/2, no Murmur Rub or Gallop appreciated RESPIRATORY: CTA B/L, no diabetes/R/R ABDOMINAL: Soft, nontender, nondistended EXTREMITIES: No edema, intact distal pulses SKIN: No rash or skin breakdown NEUROLOGICAL: moving both upper extremities spontaneously. No nuchal rigidity, follows simple commands Assessment and plan: This is a 59-year-old male, -Slovak, with h/o alcohol abuse, COPD/emphysema brought in to the ED o 02/08 due to confusion which was felt to be due to alcohol withdrawal/ Wernicke encephalopathy and multiple acute ischemic CVAs noted on MRI done the next day. Started on eliquis for possible embolic strokes. On 02/12 he developed SOB, found to have right subsegmental acute pulmonary embolism, bibasilar infiltrates and COPD exacerbation. He was transitioned to heparin drip and started on Zosyn. On 02/13 he had a Rapid assessment call for acute respiratory failure and patient was urgently intubated for agonal respirations. NG tube placement post intubation showed massive GIB. About 1.2 liters of coffee ground materials were aspirated out. The patient developed hypotension with GI bleed and went into hemorrhagic shock requiring 3 units of RBC transfusion, 2 packs of FFP, 1 pack of platelets and protamine. Emergent Esophagogastroduodenoscopy (EGD) showed four deep duodenal ulcers and severe esophagitis. His bilateral basal infiltrates were felt to be due to aspiration pneumonia. He had an IVC filter placed as he cannot be anticoagulated. Postextubation, the patient completed Zosyn for aspiration pneumonia but failed a swallow evaluation, currently on TPN. Patient is being evaluated by a ARU and speech is assessing to see if we can d/c TPN and start diet. Acute metabolic encephalopathy Multifactorial, most likely secondary to Wernicke encephalopathy, recent ischemic stroke There is possibility that this level of mentation is his a new baseline Aspiration pneumonia Secondary to severe oropharyngeal dysfunction after stroke and alcohol withdrawal Completed course of Zosyn Dysphagia ST follows him, diet was modified. Patient does not have severe oropharyngeal dysfunction and his able to swallow. His appetite slightly improved today I stopped TPN Pulmonary embolism Patient is not anticoagulated due to recent massive GI bleed IVC filter placed Acute Gastrointestinal bleed, resolved. Due to duodenal ulcers and esophagitis Hemoglobin and hematocrit remain stable. Continue PPI Bilateral CVA started statin We'll hold aspirin due to recent massive GI bleed Acute kidney injury resolved. Chronic obstructive pulmonary disease (COPD). No exacerbation at this time Cachexia Patient has low BMI, low albumin, bitemporal wasting I started Marinol to increase his appetite Follow harvest manager recommendation Depression I will start venlafaxine VS,Fishbone, I+O VS, Fishbone, I+O Laboratory Tests 02/29/20 05:39 Vital Signs Date Time Temp Pulse Resp B/P (MAP) Pulse Ox O2 Delivery O2 Flow Rate FiO2 02/29/20 06:00 97.8 80 17 139/76 (97) 97 Room Air I&O- Last 24 Hours up to 6 AM 02/29/20 06:00 Intake Total 3095 ml Output Total 0 ml Balance 3095 ml RODOLFO YUAN DO Feb 29, 2020 12:24
[2020-02-29] MEDS: VENLAFAXINE **XR** 37.5 MG CAPSULE PO SCH (13:15)
[2020-02-29 14:00] VITALS: BP 138/92
[2020-02-29 22:00] VITALS: BP 127/81
[2020-03-01 06:00] VITALS: BP 140/87
[2020-03-01 06:06] LABS: BASO % 0.5 % (0.0-1.0); EOS # 0.1 10^3/uL (0.0-0.5); EOS % 1.3 % (0.0-3.0); HEMATOCRIT 29.9 % (42.0-52.0); HEMOGLOBIN 10.2 g/dl (13.5-17.5); LYMPH % 13.2 % (24.0-44.0); MEAN CORPUSCULAR HEMOGLOBIN 30.4 pg (27.0-33.0); MEAN CORPUSCULAR HGB CONC 34.1 g/dl (32.0-36.5); MEAN CORPUSCULAR VOLUME 89.3 fl (80.0-96.0); MONO # 0.7 10^3/uL (0.0-0.8); MONO % 8.7 % (0.0-5.0); NEUTROPHILS # 5.7 10^3/uL (1.5-8.5); NEUTROPHILS % 75.4 % (36.0-66.0); PLATELET COUNT, AUTOMATED 252 10^3/uL (150-450); RED BLOOD COUNT 3.35 10^6/uL (4.30-6.10); WHITE BLOOD COUNT 7.5 10^3/uL (4.0-10.0)
[2020-03-01 06:33] LABS: ALBUMIN 2.2 GM/DL (3.2-5.2); ALT/SGPT 10 U/L (12-78); BLOOD UREA NITROGEN 11 MG/DL (7-18); CALCIUM LEVEL 9.1 MG/DL (8.8-10.2); CARBON DIOXIDE LEVEL 23 MEQ/L (21-32); CHLORIDE LEVEL 102 MEQ/L (98-107); CREATININE FOR GFR 0.62 MG/DL (0.70-1.30); GLOMERULAR FILTRATION RATE > 60.0 (>49); GLUCOSE, FASTING 71 MG/DL (70-100); MAGNESIUM LEVEL 1.7 MG/DL (1.8-2.4); SODIUM LEVEL 132 MEQ/L (136-145); TOTAL PROTEIN 6.6 GM/DL (6.4-8.2)
[2020-03-01] MEDS: DRONABINOL 2.5 MG CAP (MARINOL) PO SCH ×4 (07:46→20:52)
[2020-03-01] MEDS: SPIRONOLACTONE 25 MG TAB PO SCH (09:02)
[2020-03-01] MEDS: OMEPRAZOLE 20 MG CAP PO SCH ×2 (09:02→20:53)
[2020-03-01] MEDS: VENLAFAXINE **XR** 37.5 MG CAPSULE PO SCH (09:03)
[2020-03-01] MEDS: ATORVASTATIN 20 MG TAB PO SCH (09:03)
[2020-03-01] MEDS: THIAMINE 100 MG TAB PO SCH (09:03)
[2020-03-01] MEDS ORDERED: VARIBAR PUDDING 40% w/v 230ML TUBE As Ordered ONE (13:18)
[2020-03-01] MEDS ORDERED: BARIUM SULFATE 700 MG TABLET (E-Z-DISK) As Ordered ONE (13:19)
[2020-03-01] MEDS ORDERED: E-Z-PAQUE 96% w/w SUSP 176GM BTL As Ordered ONE (13:19)
[2020-03-01] MEDS ORDERED: VARIBAR NECTAR 40% w/v 240ML SUSP BTL As Ordered ONE (13:19)
--- NOTE | 2020-03-01 13:22 | IPNPDOC ---
Text Note Date of Service The patient was seen on 03/01/20. NOTE Subjective: No any acute events overnight. Follows simple commands. Patient was somnolent in the morning OBJECTIVE PHYSICAL EXAMINATION: VITAL SIGNS: Please see below. GENERAL: Cachectic male, not oriented in place CARDIOVASCULAR: RRR, normal S1/2, no Murmur Rub or Gallop appreciated RESPIRATORY: CTA B/L, no diabetes/R/R ABDOMINAL: Soft, nontender, nondistended EXTREMITIES: No edema, intact distal pulses SKIN: No rash or skin breakdown NEUROLOGICAL: moving both upper extremities spontaneously. No nuchal rigidity, follows simple commands Assessment and plan: This is a 59-year-old male, -[place], with h/o alcohol abuse, COPD/emphysema brought in to the ED o 02/08 due to confusion which was felt to be due to alcohol withdrawal/ Wernicke encephalopathy and multiple acute ischemic CVAs noted on MRI done the next day. Started on eliquis for possible embolic strokes. On 02/12 he developed SOB, found to have right subsegmental acute pulmonary embolism, bibasilar infiltrates and COPD exacerbation. He was transitioned to heparin drip and started on Zosyn. On 02/13 he had a Rapid assessment call for acute respiratory failure and patient was urgently intubated for agonal respirations. NG tube placement post intubation showed massive GIB. About 1.2 liters of coffee ground materials were aspirated out. The patient developed hypotension with GI bleed and went into hemorrhagic shock requiring 3 units of RBC transfusion, 2 packs of FFP, 1 pack of platelets and protamine. Emergent Esophagogastroduodenoscopy (EGD) showed four deep duodenal ulcers and severe esophagitis. His bilateral basal infiltrates were felt to be due to aspiration pneumonia. He had an IVC filter placed as he cannot be anticoagulated. Postextubation, the patient completed Zosyn for aspiration pneumonia but failed a swallow evaluation, currently on TPN. Patient is being evaluated by a ARU and speech is assessing to see if we can d/c TPN and start diet. Speech therapist recommended modified diet, TPN was discontinued Acute metabolic encephalopathy Multifactorial, most likely secondary to Wernicke encephalopathy, recent ischemic stroke There is possibility that this level of mentation is his a new baseline Aspiration pneumonia Secondary to severe oropharyngeal dysfunction after stroke and alcohol withdrawal Completed course of Zosyn Dysphagia ST follows him, diet was modified. Patient does not have severe oropharyngeal dysfunction and his able to swallow. His appetite slightly improved today I stopped TPN Pulmonary embolism Patient is not anticoagulated due to recent massive GI bleed IVC filter placed Acute Gastrointestinal bleed, resolved. Due to duodenal ulcers and esophagitis Hemoglobin and hematocrit remain stable. Continue PPI Bilateral CVA started statin We'll hold aspirin due to recent massive GI bleed Acute kidney injury resolved. Chronic obstructive pulmonary disease (COPD). No exacerbation at this time Cachexia Patient has low BMI, low albumin, bitemporal wasting I started Marinol to increase his appetite Follow dance historian recommendation Depression venlafaxine Electrolytes imbalance Replenished VS,Fishbone, I+O VS, Fishbone, I+O Laboratory Tests 03/01/20 05:38 Vital Signs Date Time Temp Pulse Resp B/P (MAP) Pulse Ox O2 Delivery O2 Flow Rate FiO2 03/01/20 06:00 97.9 98 16 140/87 (104) 99 Room Air I&O- Last 24 Hours up to 6 AM 03/01/20 06:00 Intake Total 60 ml Output Total 0 ml Balance 60 ml RODOLFO YUAN DO Mar 01, 2020 13:22
[2020-03-01 14:00] VITALS: BP 170/90
[2020-03-01] MEDS ORDERED: MAG SULF 1GM/100ML (MAG RUN) 1 GM in IV 1 EA IV ONE (14:00)
[2020-03-01] MEDS ORDERED: lisinopriL 20 MG TAB PO ONE (15:00)
[2020-03-01 15:04] VITALS: BP 170/90
--- NOTE | 2020-03-01 19:34 | REP ---
COOKIE SWALLOW The procedure was performed under the direct supervision of Dr. Quezdaa. The procedure was performed with Raeann Garber speech pathology present. 5 ml aliquots of honey and pudding consistency barium was administered. There is no evidence of penetration or aspiration. The detailed report of this examination will be provided by speech pathology. 0.8 minutes of fluoroscopy time was utilized for this procedure. Electronically Signed by GREYSON Callahan 03/01/2020 03:51 P Electronically Signed by Favio Quezada MD 03/01/2020 07:25 P
[2020-03-01 22:00] VITALS: BP 145/90
[2020-03-02 06:00] VITALS: BP_SYST 146; BP_SYST 150; BP_DIAS 75; BP_DIAS 80
[2020-03-02 07:06] LABS: ALBUMIN 2.3 GM/DL (3.2-5.2); ALT/SGPT 8 U/L (12-78); BILIRUBIN,TOTAL 0.7 MG/DL (0.2-1.0); BLOOD UREA NITROGEN 11 MG/DL (7-18); CALCIUM LEVEL 9.3 MG/DL (8.8-10.2); CARBON DIOXIDE LEVEL 22 MEQ/L (21-32); CHLORIDE LEVEL 104 MEQ/L (98-107); GLOMERULAR FILTRATION RATE > 60.0 (>49); GLUCOSE, FASTING 67 MG/DL (70-100); MAGNESIUM LEVEL 1.8 MG/DL (1.8-2.4); POTASSIUM SERUM 4.1 MEQ/L (3.5-5.1); SODIUM LEVEL 134 MEQ/L (136-145); TOTAL PROTEIN 6.9 GM/DL (6.4-8.2)
[2020-03-02] MEDS: SPIRONOLACTONE 25 MG TAB PO SCH (08:45)
[2020-03-02] MEDS: D5W/0.9% SODIUM CHLORIDE 1,000 ML IV SCH ×2 (08:45→23:03)
[2020-03-02] MEDS: OMEPRAZOLE 20 MG CAP PO SCH ×3 (08:46→20:37)
[2020-03-02] MEDS: VENLAFAXINE **XR** 37.5 MG CAPSULE PO SCH (08:47)
[2020-03-02] MEDS: ATORVASTATIN 20 MG TAB PO SCH (08:47)
[2020-03-02] MEDS: DRONABINOL 2.5 MG CAP (MARINOL) PO SCH ×5 (08:50→20:36)
[2020-03-02] MEDS: THIAMINE 100 MG TAB PO SCH (09:57)
--- NOTE | 2020-03-02 11:00 | IPNPDOC ---
Text Note Date of Service The patient was seen on 03/02/20. NOTE Subjective: No any acute events overnight. Patient is doing better today, more alert. He was able to eat, but his calories intake is not adequate. OBJECTIVE PHYSICAL EXAMINATION: VITAL SIGNS: Please see below. GENERAL: Cachectic male, not oriented in place CARDIOVASCULAR: RRR, normal S1/2, no Murmur Rub or Gallop appreciated RESPIRATORY: CTA B/L, no diabetes/R/R ABDOMINAL: Soft, nontender, nondistended EXTREMITIES: No edema, intact distal pulses SKIN: No rash or skin breakdown NEUROLOGICAL: moving both upper extremities spontaneously. No nuchal rigidity, follows simple commands Assessment and plan: This is a 59-year-old male, -[place], with h/o alcohol abuse, COPD/emphysema brought in to the ED o 02/08 due to confusion which was felt to be due to alcohol withdrawal/ Wernicke encephalopathy and multiple acute ischemic CVAs noted on MRI done the next day. Started on eliquis for possible embolic strokes. On 02/12 he developed SOB, found to have right subsegmental acute pulmonary embolism, bibasilar infiltrates and COPD exacerbation. He was transitioned to heparin drip and started on Zosyn. On 02/13 he had a Rapid assessment call for acute respiratory failure and patient was urgently intubated for agonal respirations. NG tube placement post intubation showed massive GIB. About 1.2 liters of coffee ground materials were aspirated out. The patient developed hypotension with GI bleed and went into hemorrhagic shock requiring 3 units of RBC transfusion, 2 packs of FFP, 1 pack of platelets and protamine. Emergent Esophagogastroduodenoscopy (EGD) showed four deep duodenal ulcers and severe esophagitis. His bilateral basal infiltrates were felt to be due to aspiration pneumonia. He had an IVC filter placed as he cannot be anticoagulated. Postextubation, the patient completed Zosyn for aspiration pneumonia but failed a swallow evaluation, currently on TPN. Patient is being evaluated by a ARU and speech is assessing to see if we can d/c TPN and start diet. Speech therapist recommended modified diet, TPN was discontinued Acute metabolic encephalopathy Multifactorial, most likely secondary to Wernicke encephalopathy, recent ischemic stroke There is possibility that this level of mentation is his a new baseline Aspiration pneumonia Secondary to severe oropharyngeal dysfunction after stroke and alcohol withdrawal Completed course of Zosyn Dysphagia ST follows him, diet was modified. Patient does not have severe oropharyngeal dy sfunction and his able to swallow. His appetite slightly improved today I stopped TPN Pulmonary embolism Patient is not anticoagulated due to recent massive GI bleed IVC filter placed Acute Gastrointestinal bleed, resolved. Due to duodenal ulcers and esophagitis Hemoglobin and hematocrit remain stable. Continue PPI Bilateral CVA started statin We'll hold aspirin due to recent massive GI bleed Acute kidney injury resolved. Chronic obstructive pulmonary disease (COPD). No exacerbation at this time Cachexia Patient has low BMI, low albumin, bitemporal wasting I started Marinol to increase his appetite Follow oxyacetylene welder recommendation Depression venlafaxine Electrolytes imbalance Replenished Palliative care encounter I will talk to his in order to define the goal of treatment. Patient continues to be encephalopathic with poor appetite. His mental status is fluctua ting. Hospice care consult VS,Camacho, I+O VS, Camacho, I+O Laboratory Tests 03/02/20 06:02 Vital Signs Date Time Temp Pulse Resp B/P (MAP) Pulse Ox O2 Delivery O2 Flow Rate FiO2 03/02/20 06:00 97.5 81 16 146/80 (102) 96 Room Air I&O- Last 24 Hours up to 6 AM 03/02/20 06:00 Intake Total 100 ml Output Total 1000 ml Balance -900 ml RODOLFO YUAN DO Mar 02, 2020 11:00
[2020-03-02 14:00] VITALS: BP 94/64
[2020-03-02 22:00] VITALS: BP 121/79
[2020-03-03 06:00] VITALS: BP 149/81
[2020-03-03 06:06] LABS: ALBUMIN 2.2 GM/DL (3.2-5.2); ALT/SGPT 9 U/L (12-78); BILIRUBIN,TOTAL 0.5 MG/DL (0.2-1.0); BLOOD UREA NITROGEN 11 MG/DL (7-18); CALCIUM LEVEL 8.7 MG/DL (8.8-10.2); CARBON DIOXIDE LEVEL 24 MEQ/L (21-32); CHLORIDE LEVEL 107 MEQ/L (98-107); CREATININE FOR GFR 0.68 MG/DL (0.70-1.30); GLOMERULAR FILTRATION RATE > 60.0 (>49); GLUCOSE, FASTING 95 MG/DL (70-100); MAGNESIUM LEVEL 1.4 MG/DL (1.8-2.4); POTASSIUM SERUM 3.6 MEQ/L (3.5-5.1); SODIUM LEVEL 136 MEQ/L (136-145); TOTAL PROTEIN 6.4 GM/DL (6.4-8.2)
[2020-03-03] MEDS ORDERED: POTASSIUM CHLORIDE 10 MEQ SR TABLET PO ONE (08:00)
[2020-03-03] MEDS ORDERED: MAG SULF 1GM/100ML (MAG RUN) 1 GM in IV 1 EA IV ONE (08:00)
[2020-03-03] MEDS: VENLAFAXINE **XR** 37.5 MG CAPSULE PO SCH (09:50)
[2020-03-03] MEDS: THIAMINE 100 MG TAB PO SCH (09:50)
[2020-03-03] MEDS: ATORVASTATIN 20 MG TAB PO SCH (09:50)
[2020-03-03] MEDS: OMEPRAZOLE 20 MG CAP PO SCH ×2 (09:50→20:01)
[2020-03-03] MEDS: DRONABINOL 2.5 MG CAP (MARINOL) PO SCH ×4 (09:50→20:01)
[2020-03-03] MEDS: SPIRONOLACTONE 25 MG TAB PO SCH (09:51)
[2020-03-03 11:04] LABS: DRVV SCREEN 50.5 SEC
[2020-03-03 11:06] LABS: PTT LUPUS TYPE ANTICOAG SCREEN 1.3 (0-1.2)
[2020-03-03] MEDS: D5W/0.9% SODIUM CHLORIDE 1,000 ML IV SCH (11:10)
[2020-03-03 11:14] LABS: DRVV CONFIRM 43.9 SEC; LUPUS CONFIRM RATIO 1.2
[2020-03-03 11:15] LABS: NORMALIZED RATIO 1.08 (0.00-1.20)
[2020-03-03] MEDS ORDERED: ACETAMINOPHEN TAB 650MG DOSE (2X325MG) PO PRN (13:30)
[2020-03-03] MEDS ORDERED: LORazepam 2 MG/ML VIAL (J2060) IV PRN (13:30)
[2020-03-03] MEDS ORDERED: MORPHINE 2 MG/ML 1ML VIAL (J2270) IV PRN (13:30)
[2020-03-03] MEDS ORDERED: ONDANSETRON 4MG/2ML VIAL IV PRN (13:30)
[2020-03-03] MEDS ORDERED: SCOPOLAMINE 1MG TRANSDERMAL PATCH TOP PRN (13:30)
[2020-03-03] MEDS ORDERED: FLEET ENEMA PR PRN (13:30)
[2020-03-03] MEDS ORDERED: HYOSCYAMINE SULFATE 0.125 MG SUBL TABLET PO PRN (13:30)
[2020-03-03] MEDS ORDERED: BISACODYL 10 MG SUPP PR PRN (13:30)
[2020-03-03] MEDS ORDERED: MORPHINE 10MG/0.5ML ORAL CONCENTRATE SOLUTION U/D SL PRN (13:30)
--- NOTE | 2020-03-03 13:44 | IPNPDOC ---
Text Note Date of Service The patient was seen on 03/03/20. NOTE Subjective: No any acute events overnight. Patient was able to follow simple commands. Patient had very short episode of appropriate mentation, he was able to answer how is he doing. He told me okay, then he was confused again. PHYSICAL EXAMINATION: VITAL SIGNS: Please see below. GENERAL: Cachectic male, not oriented in place CARDIOVASCULAR: RRR, normal S1/2, no Murmur Rub or Gallop appreciated RESPIRATORY: CTA B/L, no diabetes/R/R ABDOMINAL: Soft, nontender, nondistended EXTREMITIES: No edema, intact distal pulses SKIN: No rash or skin breakdown NEUROLOGICAL: moving both upper extremities spontaneously. No nuchal rigidity, follows simple commands Assessment and plan: This is a 59-year-old male, -[place]ian, with h/o alcohol abuse, COPD/emphysema brought in to the ED o 02/08 due to confusion which was felt to be due to alcohol withdrawal/ Wernicke encephalopathy and multiple acute ischemic CVAs noted on MRI done the next day. Started on eliquis for possible embolic strokes. On 02/12 he developed SOB, found to have right subsegmental acute pulmonary embolism, bibasilar infiltrates and COPD exacerbation. He was transitioned to heparin drip and started on Zosyn. On 02/13 he had a Rapid assessment call for acute respiratory failure and patient was urgently intubated for agonal respirations. NG tube placement post intubation showed massive GIB. About 1.2 liters of coffee ground materials were aspirated out. The patient developed hypotension with GI bleed and went into hemorrhagic shock requiring 3 units of RBC transfusion, 2 packs of FFP, 1 pack of platelets and protamine. Emergent Esophagogastroduodenoscopy (EGD) showed four deep duodenal ulcers and severe esophagitis. His bilateral basal infiltrates were felt to be due to aspiration pneumonia. He had an IVC filter placed as he cannot be anticoagulated. Postextubation, the patient completed Zosyn for aspiration pneumonia but failed a swallow evaluation, currently on TPN. Patient is being evaluated by a ARU and speech is assessing to see if we can d/c TPN and start diet. Speech therapist recommended modified diet, TPN was discontinued. Unfortunately, patient has failed to thrive, has a very poor appetite and most of the time he is very confused. Today, after discussion with family and according to family wishes patient was transferred to [facility]. Await hospice bed. Acute metabolic encephalopathy Multifactorial, most likely secondary to Wernicke encephalopathy, recent ischemic stroke There is possibility that this level of mentation is his a new baseline Aspiration pneumonia Secondary to severe oropharyngeal dysfunction after stroke and alcohol wit hdrawal Completed course of Zosyn Dysphagia ST follows him, diet was modified. Patient does not have severe oropharyngeal dysfunction and his able to swallow. His appetite slightly improved today I stopped TPN Pulmonary embolism Patient is not anticoagulated due to recent massive GI bleed IVC filter placed Acute Gastrointestinal bleed, resolved. Due to duodenal ulcers and esophagitis Hemoglobin and hematocrit remain stable. Continue PPI Bilateral CVA We'll hold aspirin due to recent massive GI bleed Acute kidney injury resolved. Chronic obstructive pulmonary disease (COPD). No exacerbation at this time Cachexia Patient has low BMI, low albumin, bitemporal wasting I started Marinol to increase his appetite Follow sign painter recommendation Depression venlafaxine Electrolytes imbalance Replenished Palliative care encounter Await hospice placement VS,Jamiee, I+O VS, Fishbone, I+O Laboratory Tests 03/03/20 05:11 Vital Signs Date Time Temp Pulse Resp B/P (MAP) Pulse Ox O2 Delivery O2 Flow Rate FiO2 03/03/20 06:00 98.0 78 18 149/81 (103) 99 Room Air I&O- Last 24 Hours up to 6 AM 03/03/20 06:00 Intake Total 1870 ml Output Total 325 ml Balance 1545 ml RODOLFO YUAN DO Mar 03, 2020 13:44
[2020-03-04] MEDS: DRONABINOL 2.5 MG CAP (MARINOL) PO SCH ×5 (07:30→21:00)
[2020-03-04] MEDS: THIAMINE 100 MG TAB PO SCH ×2 (07:54→09:00)
[2020-03-04] MEDS: SPIRONOLACTONE 25 MG TAB PO SCH ×2 (07:54→09:00)
[2020-03-04] MEDS: OMEPRAZOLE 20 MG CAP PO SCH ×3 (07:54→20:37)
[2020-03-04] MEDS: VENLAFAXINE **XR** 37.5 MG CAPSULE PO SCH ×2 (07:55→09:00)
[2020-03-05] MEDS: DRONABINOL 2.5 MG CAP (MARINOL) PO SCH ×4 (07:30→21:00)
[2020-03-05] MEDS: VENLAFAXINE **XR** 37.5 MG CAPSULE PO SCH (07:38)
[2020-03-05] MEDS: SPIRONOLACTONE 25 MG TAB PO SCH (07:38)
[2020-03-05] MEDS: THIAMINE 100 MG TAB PO SCH (07:39)
[2020-03-05] MEDS: OMEPRAZOLE 20 MG CAP PO SCH ×2 (07:39→21:00)
[2020-03-06] MEDS: SPIRONOLACTONE 25 MG TAB PO SCH (09:00)
[2020-03-06] MEDS: THIAMINE 100 MG TAB PO SCH (09:42)
[2020-03-06] MEDS: DRONABINOL 2.5 MG CAP (MARINOL) PO SCH ×4 (09:43→22:07)
[2020-03-06] MEDS: VENLAFAXINE **XR** 37.5 MG CAPSULE PO SCH (09:43)
[2020-03-06] MEDS: OMEPRAZOLE 20 MG CAP PO SCH ×2 (09:43→22:07)
--- NOTE | 2020-03-06 13:26 | IPNPDOC ---
Text Note Date of Service The patient was seen on 03/06/20. NOTE Subjective: I talked to his today, she stated that family wanted to change his status to DNR/DNI and revoke [facility] status. Objective: PHYSICAL EXAMINATION: VITAL SIGNS: Please see below. GENERAL: Cachectic male, not oriented in place CARDIOVASCULAR: RRR, normal S1/2, no Murmur Rub or Gallop appreciated RESPIRATORY: CTA B/L, no diabetes/R/R ABDOMINAL: Soft, nontender, nondistended EXTREMITIES: No edema, intact distal pulses SKIN: No rash or skin breakdown NEUROLOGICAL: moving both upper extremities spontaneously. No nuchal rigidity, follows simple commands Assessment and plan: This is a 59-year-old male, -[place], with h/o alcohol abuse, COPD/emphysema brought in to the ED o 02/08 due to confusion which was felt to be due to alcohol withdrawal/ Wernicke encephalopathy and multiple acute ischemic CVAs noted on MRI done the next day. Started on eliquis for possible embolic strokes. On 02/12 he developed SOB, found to have right subsegmental acute pulmonary embolism, bibasilar infiltrates and COPD exacerbation. He was transitioned to heparin drip and started on Zosyn. On 02/13 he had a Rapid assessment call for acute respiratory failure and patient was urgently intubated for agonal respirations. NG tube placement post intubation showed massive GIB. About 1.2 liters of coffee ground materials were aspirated out. The patient developed hypotension with GI bleed and went into hemorrhagic shock requiring 3 units of RBC transfusion, 2 packs of FFP, 1 pack of platelets and protamine. Emergent Esophagogastroduodenoscopy (EGD) showed four deep duodenal ulcers and severe esophagitis. His bilateral basal infiltrates were felt to be due to aspiration pneumonia. He had an IVC filter placed as he cannot be anticoagulated. Postextubation, the patient completed Zosyn for aspiration pneumonia but failed a swallow evaluation, currently on TPN. Patient is being evaluated by a ARU and speech is assessing to see if we can d/c TPN and start diet. Speech therapist recommended modified diet, TPN was discontinued. Unfortunately, patient has failed to thrive, has a very poor appetite and most of the time he is very confused. After discussion with family and according to family wishes patient was transferred to [facility]. Await hospice bed. On 03/06/20 family changed decision and revoke [employer] status Acute metabolic encephalopathy Multifactorial, most likely secondary to Wernicke encephalopathy, recent ischemic stroke There is possibility that this level of mentation is his a new baseline Aspiration pneumonia Secondary to severe oropharyngeal dysfunction after stroke and alcohol withdrawal Completed course of Zosyn Dysphagia ST follows him, diet was modified. Patient does not have severe oropharyngeal dysfunction and his able to swallow. I stopped TPN Pulmonary embolism Patient is not anticoagulated due to recent massive GI bleed IVC filter placed Acute Gastrointestinal bleed, resolved. Due to duodenal ulcers and esophagitis Hemoglobin and hematocrit remain stable. Continue PPI Bilateral CVA We'll hold aspirin due to recent massive GI bleed Acute kidney injury resolved. Chronic obstructive pulmonary disease (COPD). No exacerbation at this time Cachexia Patient has low BMI, low albumin, bitemporal wasting I started Marinol to increase his appetite Follow poacher wringer operator recommendation Depression venlafaxine Electrolytes imbalance Will check BMP Palliative care encounter Await hospice placement VS,Fishbone, I+O VS, Fishbone, I+O Vital Signs Date Time Temp Pulse Resp B/P (MAP) Pulse Ox O2 Delivery O2 Flow Rate FiO2 03/03/20 06:00 98.0 78 18 149/81 (103) 99 Room Air I&O- Last 24 Hours up to 6 AM 03/06/20 06:00 Intake Total 60 ml Output Total 300 ml Balance -240 ml RODOLFO YUAN DO Mar 06, 2020 13:25
[2020-03-06 14:04] LABS: HEMATOCRIT 37.9 % (42.0-52.0); HEMOGLOBIN 12.3 g/dl (13.5-17.5); MEAN CORPUSCULAR HEMOGLOBIN 30.2 pg (27.0-33.0); MEAN CORPUSCULAR HGB CONC 32.5 g/dl (32.0-36.5); MEAN CORPUSCULAR VOLUME 93.1 fl (80.0-96.0); PLATELET COUNT, AUTOMATED 324 10^3/uL (150-450); RED BLOOD COUNT 4.07 10^6/uL (4.30-6.10)
[2020-03-06 14:27] LABS: BLOOD UREA NITROGEN 15 MG/DL (7-18); CALCIUM LEVEL 9.9 MG/DL (8.8-10.2); CARBON DIOXIDE LEVEL 22 MEQ/L (21-32); CHLORIDE LEVEL 112 MEQ/L (98-107); CREATININE FOR GFR 0.94 MG/DL (0.70-1.30); GLOMERULAR FILTRATION RATE > 60.0 (>49); GLUCOSE, FASTING 98 MG/DL (70-100); MAGNESIUM LEVEL 1.7 MG/DL (1.8-2.4); POTASSIUM SERUM 3.7 MEQ/L (3.5-5.1); SODIUM LEVEL 144 MEQ/L (136-145)
[2020-03-06 17:57] VITALS: BP 130/80
[2020-03-07 06:00] VITALS: BP_SYST 132; BP_SYST 152; BP_DIAS 73; BP_DIAS 88
[2020-03-07] MEDS: DRONABINOL 2.5 MG CAP (MARINOL) PO SCH ×4 (07:30→21:41)
[2020-03-07] MEDS: VENLAFAXINE **XR** 37.5 MG CAPSULE PO SCH (09:00)
[2020-03-07] MEDS: THIAMINE 100 MG TAB PO SCH (09:00)
[2020-03-07] MEDS: OMEPRAZOLE 20 MG CAP PO SCH ×2 (09:00→21:41)
--- NOTE | 2020-03-07 14:27 | IPNPDOC ---
Text Note Date of Service The patient was seen on 03/07/20. NOTE Subjective: No any acute events overnight. Patient denied any pain. He was able to eat small amount of food. Objective: PHYSICAL EXAMINATION: VITAL SIGNS: Please see below. GENERAL: Cachectic male, not oriented in place CARDIOVASCULAR: RRR, normal S1/2, no Murmur Rub or Gallop appreciated RESPIRATORY: CTA B/L, no diabetes/R/R ABDOMINAL: Soft, nontender, nondistended EXTREMITIES: No edema, intact distal pulses SKIN: No rash or skin breakdown NEUROLOGICAL: moving both upper extremities spontaneously. 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 Started on eliquis for possible embolic strokes. On 02/12 he developed SOB, found to have right subsegmental acute pulmonary embolism, bibasilar infiltrates and COPD exacerbation. He was transitioned to heparin drip and started on Zosyn. On 02/13 he had a Rapid assessment call for acute respiratory failure and patient was urgently intubated for agonal respirations. NG tube placement post intubation showed massive GIB. About 1.2 liters of coffee ground materials were aspirated out. The patient developed hypotension with GI bleed and went into hemorrhagic shock requiring 3 units of RBC transfusion, 2 packs of FFP, 1 pack of platelets and protamine. Emergent Esophagogastroduodenoscopy (EGD) showed four deep duodenal ulcers and severe esophagitis. His bilateral basal infiltrates were felt to be due to aspiration pneumonia. He had an IVC filter placed as he cannot be anticoagulated. Postextubation, the patient completed Zosyn for aspiration pneumonia but failed a swallow evaluation, currently on TPN. Patient is being evaluated by a ARU and speech is assessing to see if we can d/c TPN and start diet. Speech therapist recommended modified diet, TPN was discontinued. Unfortunately, patient has failed to thrive, has a very poor appetite and most of the time he is very confused. After discussion with family and according to family wishes patient was transferred to [facility]. Await hospice bed. On 03/06/20 family changed decision and revoke [employer] status. His wanted to take him home, she believes patient in family environment will recover past. Acute metabolic encephalopathy Multifactorial, most likely secondary to Wernicke encephalopathy, recent ischemic stroke There is possibility that this level of mentation is his a new baseline Aspiration pneumonia Secondary to severe oropharyngeal dysfunction after stroke and alcohol withd aida Completed course of Zosyn Dysphagia ST follows him, diet was modified. Patient does not have severe oropharyngeal dysfunction and his able to swallow. I stopped TPN Pulmonary embolism Patient is not anticoagulated due to recent massive GI bleed IVC filter placed Acute Gastrointestinal bleed, resolved. Due to duodenal ulcers and esophagitis Hemoglobin and hematocrit remain stable. Continue PPI Bilateral CVA We'll hold aspirin due to recent massive GI bleed Acute kidney injury resolved. Chronic obstructive pulmonary disease (COPD). No exacerbation at this time Cachexia Patient has low BMI, low albumin, bitemporal wasting I started Marinol to increase his appetite Follow damage adjuster recommendation Depression venlafaxine Electrolytes imbalance Will check BMP Palliative care encounter [employer] W[employer] status has been revoked Deconditioning Multifactorial, due to prolonged hospitalization, multiple strokes, multiple comorbidities Patient has a medical condition which requires positioning of the body in the ways not feasible with an ordinary bed. Elevation of the head/upper body less then 30 degrees does not usually require the use of a hospital bed. The patient requires frequent changes in body position and/or has an immediate need for a change in body position VS,Fishbone, I+O VS, Fishbone, I+O Vital Signs Date Time Temp Pulse Resp B/P (MAP) Pulse Ox O2 Delivery O2 Flow Rate FiO2 03/07/20 06:00 98.4 92 18 132/88 (103) 97 Room Air I&O- Last 24 Hours up to 6 AM 03/07/20 06:00 Intake Total 315 ml Output Total 220 ml Balance 95 ml RODOLFO YUAN DO Mar 07, 2020 14:27
[2020-03-07] MEDS: MAGNESIUM CHLORIDE 64 MG TABCR (SLO MAG) PO SCH (15:00)
[2020-03-07] MEDS: HALOPERIDOL 5MG/ML VIAL (J1630 PER 1) IV PRN (18:13)
[2020-03-08 06:00] VITALS: BP 148/86
[2020-03-08] MEDS: MAGNESIUM CHLORIDE 64 MG TABCR (SLO MAG) PO SCH (09:00)
[2020-03-08] MEDS: THIAMINE 100 MG TAB PO SCH (09:00)
[2020-03-08] MEDS: VENLAFAXINE **XR** 37.5 MG CAPSULE PO SCH (09:00)
[2020-03-08] MEDS: OMEPRAZOLE 20 MG CAP PO SCH ×3 (09:00→21:48)
[2020-03-08] MEDS: DRONABINOL 2.5 MG CAP (MARINOL) PO SCH ×5 (09:53→21:49)
[2020-03-09 00:30] VITALS: BP 131/93
[2020-03-09 01:13] LABS: ABG BASE EXCESS -2.1 (-2.0-2.0); ABG HCO3 21.4 MEQ/L (22.0-26.0); ABG O2 SATURATION 94.8 % (95.0-99.0); ABG PARTIAL PRESSURE CO2 32.5 mmHg (35.0-45.0); ABG PARTIAL PRESSURE O2 77.7 mmHg (75.0-100.0); ABG STANDARD HCO3 22.7 MEQ/L (22.0-26.0); ABG TOTAL CO2 22.4 MEQ/L (23.0-31.0); ABG pH (ARTERIAL) 7.436 UNITS (7.350-7.450)
--- NOTE | 2020-03-09 01:25 | REPVR ---
PROCEDURE INFORMATION: Exam: CT Head Without Contrast Exam date and time: 03/09/2020 12:43 AM Age: 59 years old Clinical indication: Altered mental status/memory loss; Confusion or disorientation; Additional info: AMS TECHNIQUE: Imaging protocol: Computed tomography of the head without contrast. Radiation optimization: All CT scans at this facility use at least one of these dose optimization techniques: automated exposure control; mA and/or kV adjustment per patient size (includes targeted exams where dose is matched to clinical indication); or iterative reconstruction. COMPARISON: CT Head without contrast 02/14/2020 8:56 AM FINDINGS: Brain: There is diffuse cortical atrophy and hypoattenuation of the deep white matter. No acute hemorrhage. Again noted is encephalomalacia involving the anterior left frontal cortex. Ventricles: Unremarkable. No ventriculomegaly. Bones/joints: Unremarkable. No acute fracture. Sinuses: Visualized sinuses are unremarkable. No fluid levels. Mastoid air cells: Unremarkable as visualized. No mastoid effusion. Soft tissues: Unremarkable. IMPRESSION: No acute intracranial process. No change from the prior study. Diffuse cortical atrophy and chronic deep white matter small vessel disease. Electronically signed by: Abdias Womack On 03/09/2020 01:25:42 AM
[2020-03-09 02:41] LABS: HEMATOCRIT 41.2 % (42.0-52.0); HEMOGLOBIN 12.8 g/dl (13.5-17.5); MEAN CORPUSCULAR HEMOGLOBIN 29.2 pg (27.0-33.0); MEAN CORPUSCULAR HGB CONC 31.1 g/dl (32.0-36.5); MEAN CORPUSCULAR VOLUME 94.1 fl (80.0-96.0); PLATELET COUNT, AUTOMATED 278 10^3/uL (150-450); RED BLOOD COUNT 4.38 10^6/uL (4.30-6.10); WHITE BLOOD COUNT 10.9 10^3/uL (4.0-10.0)
[2020-03-09 03:02] LABS: C REACTIVE PROTEIN QUANTITATIV 3.45 MG/DL (0.00-0.30); CALCIUM LEVEL 10.2 MG/DL (8.8-10.2); CREATININE FOR GFR 1.66 MG/DL (0.70-1.30); GLOMERULAR FILTRATION RATE 54.8 (>49); POTASSIUM SERUM 4.2 MEQ/L (3.5-5.1)
[2020-03-09] MEDS ORDERED: D5W/0.45% SODIUM CHLORIDE 1,000 ML IV SCH (04:15)
[2020-03-09 06:00] VITALS: BP 131/92
[2020-03-09] MEDS: VENLAFAXINE **XR** 37.5 MG CAPSULE PO SCH (10:06)
[2020-03-09] MEDS: OMEPRAZOLE 20 MG CAP PO SCH ×2 (10:06→23:43)
[2020-03-09] MEDS: MAGNESIUM CHLORIDE 64 MG TABCR (SLO MAG) PO SCH (10:06)
[2020-03-09] MEDS: THIAMINE 100 MG TAB PO SCH (10:06)
[2020-03-09] MEDS: DRONABINOL 2.5 MG CAP (MARINOL) PO SCH ×4 (10:06→21:00)
[2020-03-09] MEDS: HALOPERIDOL 5MG/ML VIAL (J1630 PER 1) IV PRN (20:10)
[2020-03-09] MEDS ORDERED: HALOPERIDOL 5MG/ML VIAL (J1630 PER 1) IM PRN (20:30)
[2020-03-10 06:16] VITALS: BP 133/92
[2020-03-10] MEDS: THIAMINE 100 MG TAB PO SCH (09:00)
[2020-03-10] MEDS: OMEPRAZOLE 20 MG CAP PO SCH ×2 (09:00→21:00)
[2020-03-10] MEDS: VENLAFAXINE **XR** 37.5 MG CAPSULE PO SCH (09:00)
[2020-03-10] MEDS: MAGNESIUM CHLORIDE 64 MG TABCR (SLO MAG) PO SCH (09:00)
[2020-03-10] MEDS: DRONABINOL 2.5 MG CAP (MARINOL) PO SCH ×4 (09:48→21:00)
[2020-03-10] MEDS ORDERED: D5W/0.9% SODIUM CHLORIDE 1,000 ML IV SCH (12:30)
[2020-03-10 13:28] LABS: BASO % 0.3 % (0.0-1.0); EOS # 0.1 10^3/uL (0.0-0.5); EOS % 0.4 % (0.0-3.0); HEMATOCRIT 43.3 % (42.0-52.0); HEMOGLOBIN 13.3 g/dl (13.5-17.5); LYMPH # 1.4 10^3/uL (1.5-5.0); LYMPH % 9.6 % (24.0-44.0); MEAN CORPUSCULAR HEMOGLOBIN 29.4 pg (27.0-33.0); MEAN CORPUSCULAR HGB CONC 30.7 g/dl (32.0-36.5); MEAN CORPUSCULAR VOLUME 95.6 fl (80.0-96.0); MONO # 0.9 10^3/uL (0.0-0.8); MONO % 5.8 % (0.0-5.0); NEUTROPHILS # 12.4 10^3/uL (1.5-8.5); NEUTROPHILS % 83.2 % (36.0-66.0); PLATELET COUNT, AUTOMATED 252 10^3/uL (150-450); RED BLOOD COUNT 4.53 10^6/uL (4.30-6.10); WHITE BLOOD COUNT 14.9 10^3/uL (4.0-10.0)
[2020-03-10 14:09] LABS: BLOOD UREA NITROGEN 30 MG/DL (7-18); CALCIUM LEVEL 10.6 MG/DL (8.8-10.2); CARBON DIOXIDE LEVEL 26 MEQ/L (21-32); CHLORIDE LEVEL 117 MEQ/L (98-107); CREATININE FOR GFR 1.47 MG/DL (0.70-1.30); GLOMERULAR FILTRATION RATE > 60.0 (>49); GLUCOSE, FASTING 115 MG/DL (70-100); MAGNESIUM LEVEL 1.9 MG/DL (1.8-2.4); SODIUM LEVEL 152 MEQ/L (136-145)
[2020-03-10] MEDS ORDERED: D5W/0.45% SODIUM CHLORIDE 1,000 ML IV SCH (15:45)
[2020-03-10 17:39] LABS: BLOOD UREA NITROGEN 31 MG/DL (7-18); CALCIUM LEVEL 9.8 MG/DL (8.8-10.2); CARBON DIOXIDE LEVEL 24 MEQ/L (21-32); CHLORIDE LEVEL 120 MEQ/L (98-107); CREATININE FOR GFR 1.52 MG/DL (0.70-1.30); GLOMERULAR FILTRATION RATE > 60.0 (>49); GLUCOSE, FASTING 123 MG/DL (70-100); POTASSIUM SERUM 3.6 MEQ/L (3.5-5.1); SODIUM LEVEL 152 MEQ/L (136-145)
[2020-03-10] MEDS ORDERED: D5W/LR 1,000 ML IV ONE (21:30)
[2020-03-10 21:39] LABS: BLOOD UREA NITROGEN 32 MG/DL (7-18); CALCIUM LEVEL 9.4 MG/DL (8.8-10.2); CARBON DIOXIDE LEVEL 24 MEQ/L (21-32); CHLORIDE LEVEL 122 MEQ/L (98-107); CREATININE FOR GFR 1.45 MG/DL (0.70-1.30); GLOMERULAR FILTRATION RATE > 60.0 (>49); GLUCOSE, FASTING 136 MG/DL (70-100); POTASSIUM SERUM 4.1 MEQ/L (3.5-5.1); SODIUM LEVEL 154 MEQ/L (136-145)
[2020-03-10] MEDS ORDERED: POTASSIUM CHLORIDE INJ 20 MEQ in D5W/LR 1,000 ML IV SCH (21:45)
[2020-03-10 22:00] VITALS: BP 145/97
[2020-03-10 22:35] VITALS: BP 135/93
[2020-03-10] MEDS ORDERED: NS 0.45% 1,000 ML IV SCH (22:45)
[2020-03-10] MEDS ORDERED: VANCOMYCIN HCL 1,000 MG, VIAL MATE ADAPTER 1 EACH in D5W 250 ML IV SCH (23:00)
[2020-03-10 23:25] LABS: ABG BASE EXCESS -1.9 (-2.0-2.0); ABG O2 SATURATION 96.1 % (95.0-99.0); ABG PARTIAL PRESSURE O2 86.7 mmHg (75.0-100.0); ABG STANDARD HCO3 22.9 MEQ/L (22.0-26.0); ABG TOTAL CO2 21.9 MEQ/L (23.0-31.0); ABG pH (ARTERIAL) 7.463 UNITS (7.350-7.450)
--- NOTE | 2020-03-10 23:31 | PHACANCOPD ---
PHARMACY VANCOMYCIN DOSING Pt Demographics Demographics Patient Age:59 , Weight:62.900 , Gender: male Adjusted Body Weight Date: 03/10/20, Adjusted Body Weight: Kg Events Past 24 Hours Events Past 24 Hours: NO: Dialysis, Diuretic Therapy, Change in CrCl, Fever, Elevation in WBC, Pending Diagnostics, Pending Procedures, Other Vancomycin Vancomycin Target Ranges: 15-20 mcg/ml Vancomycin Load Y/N: Yes Load Dose Date Time Vancomycin Load Dose: 1500mg Date: 03-11 Time: 0300 Vancomycin Dose Date: 03/10/20. Current Vancomycin Dose: [750mg q8h] Intermittent Dosing?: No Labs Labs Item Value Date Time White Blood Count 14.9 10^3/uL H 03/10/20 1308 Glomerular Filtration Rate > 60.0 03/10/20 2112 Creatinine 1.45 MG/DL H 03/10/20 2112 Blood Urea Nitrogen 32 MG/DL H 03/10/20 2112 Vital Signs Label Value Date Time Patient Temperature 98.5 degrees F 03/10/200 Temperature Source Temporal 03/10/202199 Creatinine Clearance Date:03/10/20. Creatinine Clearance: [~50]. Pending Labs trough 03-11 @1800 Assessment and Plan Maintaining Current Dose?: Yes Reason for dose change: No Dose Change Pharmacist Note Pharmacist Note Date: 03/10/20. Pharmacist note:Will monitor and make adjustments as needed. JESSICA DAVIS PHARMACY Mar 10, 2020 23:31
[2020-03-11] MEDS ORDERED: PIPERACILLIN/TAZOBACTAM SOD 3.375 GM in D5W MINI-BAG PLUS 50 ML IV SCH ×2
[2020-03-11 00:19] LABS: HEMOGLOBIN 11.6 g/dl (13.5-17.5); MEAN CORPUSCULAR HEMOGLOBIN 29.9 pg (27.0-33.0); MEAN CORPUSCULAR HGB CONC 30.5 g/dl (32.0-36.5); MEAN CORPUSCULAR VOLUME 97.9 fl (80.0-96.0); PLATELET COUNT, AUTOMATED 230 10^3/uL (150-450); RED BLOOD COUNT 3.88 10^6/uL (4.30-6.10); WHITE BLOOD COUNT 22.2 10^3/uL (4.0-10.0)
[2020-03-11 00:32] LABS: BLOOD UREA NITROGEN 35 MG/DL (7-18); CARBON DIOXIDE LEVEL 26 MEQ/L (21-32); CHLORIDE LEVEL 123 MEQ/L (98-107); CREATININE FOR GFR 1.47 MG/DL (0.70-1.30); GLOMERULAR FILTRATION RATE > 60.0 (>49); GLUCOSE, FASTING 168 MG/DL (70-100); POTASSIUM SERUM 3.9 MEQ/L (3.5-5.1); SODIUM LEVEL 156 MEQ/L (136-145)
[2020-03-11 00:58] LABS: ERYTHROCYTE SEDIMENTATION RATE 70 mm/hr (0-20)
[2020-03-11] MEDS ORDERED: D5W 1,000 ML IV SCH (01:15)
[2020-03-11] MEDS ORDERED: VANCOMYCIN HCL 750 MG, VIAL MATE ADAPTER 1 EACH in D5W 250 ML IV ONE ×2 (02:00→05:00)
[2020-03-11] MEDS ORDERED: VANCOMYCIN HCL 750 MG, VIAL MATE ADAPTER 1 EACH in D5W 250 ML IV SCH (03:00)
[2020-03-11] MEDS: PIPERACILLIN/TAZOBACTAM SOD 3.375 GM in D5W MINI-BAG PLUS 50 ML IV SCH ×4 (03:11→20:41)
[2020-03-11] MEDS: VANCOMYCIN HCL 750 MG, VIAL MATE ADAPTER 1 EACH in D5W 250 ML IV SCH ×2 (04:31→12:12)
[2020-03-11 06:00] VITALS: BP_SYST 102; BP_SYST 104; BP_DIAS 60; BP_DIAS 82
[2020-03-11 06:34] LABS: CALCIUM LEVEL 8.9 MG/DL (8.8-10.2); CREATININE FOR GFR 1.61 MG/DL (0.70-1.30); GLOMERULAR FILTRATION RATE 56.8 (>49); POTASSIUM SERUM 4.2 MEQ/L (3.5-5.1)
[2020-03-11 07:29] LABS: MAGNESIUM LEVEL 1.6 MG/DL (1.8-2.4)
[2020-03-11] MEDS: MAGNESIUM CHLORIDE 64 MG TABCR (SLO MAG) PO SCH (07:29)
[2020-03-11] MEDS: VENLAFAXINE **XR** 37.5 MG CAPSULE PO SCH (07:29)
[2020-03-11] MEDS: OMEPRAZOLE 20 MG CAP PO SCH ×2 (07:29→20:41)
[2020-03-11] MEDS: DRONABINOL 2.5 MG CAP (MARINOL) PO SCH ×4 (07:29→20:41)
[2020-03-11 07:30] LABS: BASO # 0.1 10^3/uL (0.0-0.2); BASO % 0.2 % (0.0-1.0); HEMATOCRIT 36.4 % (42.0-52.0); HEMOGLOBIN 10.8 g/dl (13.5-17.5); LYMPH # 1.3 10^3/uL (1.5-5.0); LYMPH % 4.8 % (24.0-44.0); MEAN CORPUSCULAR HGB CONC 29.7 g/dl (32.0-36.5); MEAN CORPUSCULAR VOLUME 97.8 fl (80.0-96.0); MONO # 1.8 10^3/uL (0.0-0.8); MONO % 6.4 % (0.0-5.0); NEUTROPHILS # 23.7 10^3/uL (1.5-8.5); NEUTROPHILS % 87.5 % (36.0-66.0); RED BLOOD COUNT 3.72 10^6/uL (4.30-6.10); WHITE BLOOD COUNT 27.1 10^3/uL (4.0-10.0)
[2020-03-11] MEDS ORDERED: D5W/0.45% SODIUM CHLORIDE 1,000 ML IV SCH (07:30)
[2020-03-11] MEDS: THIAMINE 100 MG TAB PO SCH (07:30)
[2020-03-11] MEDS ORDERED: D5W/0.45% SODIUM CHLORIDE 1,000 ML IV ONE (07:30)
[2020-03-11 08:11] LABS: PLATELET COUNT, AUTOMATED 180 10^3/uL (150-450)
[2020-03-11 09:03] LABS: CALCIUM LEVEL 8.4 MG/DL (8.8-10.2); CREATININE FOR GFR 1.61 MG/DL (0.70-1.30); GLOMERULAR FILTRATION RATE 56.8 (>49); POTASSIUM SERUM 3.6 MEQ/L (3.5-5.1)
--- NOTE | 2020-03-11 10:23 | REP ---
CHEST, SINGLE VIEW: Single view of the chest is performed and compared to a prior study of 02/18/2020. Bilateral interstitial prominence is stable. Focal right infrahilar parenchymal opacity is slightly improved. No new infiltrate is seen. The heart is normal in size. No other acute changes are seen. Electronically Signed by Favio Quezada MD 03/11/2020 10:53 A
--- NOTE | 2020-03-11 10:26 | IPNPDOC ---
Text Note Date of Service The patient was seen on 03/11/20. NOTE Subjective: Patient developed hypernatremia with fever of 100.3. Patient continues to have very poor oral intake. Most of the time she is very lethargic, is not oriented in time, in place, very minimally follows commands. Objective: PHYSICAL EXAMINATION: VITAL SIGNS: Please see below. GENERAL: Cachectic male, not oriented in place CARDIOVASCULAR: RRR, normal S1/2, no Murmur Rub or Gallop appreciated RESPIRATORY: CTA B/L, no diabetes/R/R ABDOMINAL: Soft, nontender, nondistended EXTREMITIES: No edema, intact distal pulses SKIN: No rash or skin breakdown NEUROLOGICAL: moving both upper extremities spontaneously. No nuchal rigidity, follows simple commands This is a 59-year-old male, -Chinese, with h/o alcohol abuse, COPD/emphysema brought in to the ED o 02/08 due to confusion which was felt to be due to alcohol withdrawal/ Wernicke encephalopathy and multiple acute ischemic CVAs noted on MRI done the next day. Started on eliquis for possible embolic strokes. On 02/12 he developed SOB, found to have right subsegmental acute pulmonary embolism, bibasilar infiltrates and COPD exacerbation. He was transitioned to heparin drip and started on Zosyn. On 02/13 he had a Rapid assessment call for acute respiratory failure and patient was urgently intubated for agonal respirations. NG tube placement post intubation showed massive GIB. About 1.2 liters of coffee ground materials were aspirated out. The patient developed hypotension with GI bleed and went into hemorrhagic shock requiring 3 units of RBC transfusion, 2 packs of FFP, 1 pack of platelets and protamine. Emergent Esophagogastroduodenoscopy (EGD) showed four deep duodenal ulcers and severe esophagitis. His bilateral basal infiltrates were felt to be due to aspiration pneumonia. He had an IVC filter placed as he cannot be anticoagulated. Postextubation, the patient completed Zosyn for aspiration pneumonia but failed a swallow evaluation, currently on TPN. Patient is being evaluated by a ARU and speech is assessing to see if we can d/c TPN and start diet. Speech therapist recommended modified diet, TPN was discontinued. Unfortunately, patient has failed to thrive, has a very poor appetite and most of the time he is very confused. After discussion with family and according to family wishes patient was transferred to [facility]. Await hospice bed. 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 His wanted to take him home, she believes patient in family environment will recover faster. Yesterday in the evening on 03/10/25 I updated his Pati and discussed with her the goal of treatment. After discussion Pati decided that her would benefit from PEG tube placement and feeding. The family wanted to place the feeding tube and feed the patient for next 2 weeks. On 03/10/20 in the evening patient developed hypernatremia. He received IV fluid. During the night patient developed spiking fever with leukocytosis. IV antibiotics started. Sepsis Unknown etiology for now Chest x-ray did not show acute pulmonary infiltrate Await blood culture, urine culture. Rogers catheter was discontinued Vancomycin IV, Zosyn IV MRSA screen IV fluid Hypernatremia Most likely secondary to dehydration patient has a very poor oral intake CMP every 4 hours will continue to monitor phosphorus, magnesium IV fluid continue to monitor sodium level, reduction 6-8 meq Acute metabolic encephalopathy Multifactorial, most likely secondary to Wernicke encephalopathy, recent ischemic stroke There is possibility that this level of mentation is his a new baseline Aspiration pneumonia Secondary to severe oropharyngeal dysfunction after stroke and alcohol withdrawal Completed course of Zosyn Dysphagia ST follows him, diet was modified. Patient does not have severe oropharyngeal dysfunction and his able to swallow. On 03/10/20 his wanted PEG tube placement. However patient developed sepsis. I started PPN for now Pulmonary embolism Patient is not anticoagulated due to recent massive GI bleed IVC filter placed Acute Gastrointestinal bleed, resolved. Due to duodenal ulcers and esophagitis Hemoglobin and hematocrit remain stable. Continue PPI Bilateral CVA We'll hold aspirin due to recent massive GI bleed Acute kidney injury resolved. Chronic obstructive pulmonary disease (COPD). No exacerbation at this time Cachexia Patient has low BMI, low albumin, bitemporal wasting I started Marinol to increase his appetite Started PPN today. We will continue monitoring electrolytes Depression venlafaxine Electrolytes imbalance Continue checking electrolytes Palliative care encounter COLORED LIQUID PLASTIC APPLIER status has been revoked Deconditioning Multifactorial, due to prolonged hospitalization, multiple strokes, multiple comorbidities Patient has a medical condition which requires positioning of the body in the ways not feasible with an ordinary bed. Elevation of the head/upper body less then 30 degrees does not usually require the use of a hospital bed. The patient requires frequent changes in body position and/or has an immediate need for a change in body position PT/OT VS,Camacho, I+O VS, Camacho, I+O Laboratory Tests 03/10/20 13:08 03/10/20 17:08 03/10/20 21:12 03/10/20 23:50 03/11/20 05:23 03/11/20 08:27 Vital Signs Date Time Temp Pulse Resp B/P (MAP) Pulse Ox O2 Delivery O2 Flow Rate FiO2 03/11/20 06:00 98.0 70 20 104/82 (89) 99 Room Air I&O- Last 24 Hours up to 6 AM 03/11/20 06:00 Intake Total 1350 ml Output Total 225 ml Balance 1125 ml RODOLFO YUAN DO Mar 11, 2020 10:26
[2020-03-11] MEDS ORDERED: MAG SULF 1GM/100ML (MAG RUN) 1 GM in IV 1 EA IV ONE ×2 (11:00→13:00)
[2020-03-11] MEDS ORDERED: D5/0.45%NACL 1000ML IV ONE (11:30)
[2020-03-11 12:00] LABS: ALBUMIN 2.2 GM/DL (3.2-5.2); ALT/SGPT 9 U/L (12-78); BILIRUBIN,TOTAL 0.8 MG/DL (0.2-1.0); BLOOD UREA NITROGEN 39 MG/DL (7-18); CALCIUM LEVEL 9.1 MG/DL (8.8-10.2); CARBON DIOXIDE LEVEL 23 MEQ/L (21-32); CHLORIDE LEVEL 119 MEQ/L (98-107); CREATININE FOR GFR 1.52 MG/DL (0.70-1.30); GLOMERULAR FILTRATION RATE > 60.0 (>49); GLUCOSE, FASTING 114 MG/DL (70-100); MAGNESIUM LEVEL 1.4 MG/DL (1.8-2.4); PHOSPHORUS LEVEL 2.5 MG/DL (2.5-4.9); POTASSIUM SERUM 3.9 MEQ/L (3.5-5.1); SODIUM LEVEL 148 MEQ/L (136-145); TOTAL PROTEIN 7.3 GM/DL (6.4-8.2)
[2020-03-11] MEDS ORDERED: KCL 10MEQ/100ML SWI (KRUN) 10 MEQ in IV 1 EA IV ONE (12:00)
[2020-03-11] MEDS: KCL 20MEQ IN D5/NS 1000ML 1,000 ML IV SCH ×2 (12:58→22:53)
[2020-03-11 16:26] LABS: ALT/SGPT 8 U/L (12-78); BILIRUBIN,TOTAL 0.8 MG/DL (0.2-1.0); BLOOD UREA NITROGEN 33 MG/DL (7-18); CALCIUM LEVEL 8.5 MG/DL (8.8-10.2); CARBON DIOXIDE LEVEL 23 MEQ/L (21-32); CHLORIDE LEVEL 117 MEQ/L (98-107); CREATININE FOR GFR 1.44 MG/DL (0.70-1.30); GLOMERULAR FILTRATION RATE > 60.0 (>49); GLUCOSE, FASTING 83 MG/DL (70-100); MAGNESIUM LEVEL 2.3 MG/DL (1.8-2.4); PHOSPHORUS LEVEL 1.6 MG/DL (2.5-4.9); SODIUM LEVEL 148 MEQ/L (136-145); TOTAL PROTEIN 6.8 GM/DL (6.4-8.2)
[2020-03-11] MEDS: AMINO AC/ELECTROLYTE/DEX/CALC 1,000 ML IV SCH (17:24)
[2020-03-11] MEDS: HumaLOG INSULIN (NovoLOG) PER UNIT SC SCH (17:40)
[2020-03-11] MEDS ORDERED: FAT EMULSION IV 20% 500 ML IV SCH (18:00)
[2020-03-11] MEDS ORDERED: POTASSIUM CHLORIDE 10 MEQ SR TABLET PO ONE (18:30)
[2020-03-11] MEDS ORDERED: POTASSIUM PHOSPHATE INJ 30 MMOL in D5W 500 ML IV ONE (19:00)
[2020-03-11 20:28] LABS: ALBUMIN 2.1 GM/DL (3.2-5.2); ALT/SGPT 8 U/L (12-78); BILIRUBIN,TOTAL 0.8 MG/DL (0.2-1.0); BLOOD UREA NITROGEN 31 MG/DL (7-18); CALCIUM LEVEL 8.6 MG/DL (8.8-10.2); CARBON DIOXIDE LEVEL 22 MEQ/L (21-32); CHLORIDE LEVEL 118 MEQ/L (98-107); CREATININE FOR GFR 1.44 MG/DL (0.70-1.30); GLOMERULAR FILTRATION RATE > 60.0 (>49); GLUCOSE, FASTING 98 MG/DL (70-100); MAGNESIUM LEVEL 2.2 MG/DL (1.8-2.4); PHOSPHORUS LEVEL 2.3 MG/DL (2.5-4.9); POTASSIUM SERUM 3.5 MEQ/L (3.5-5.1); SODIUM LEVEL 148 MEQ/L (136-145)
[2020-03-11] MEDS ORDERED: NS 1,000 ML IV ONE (21:30)
[2020-03-11 22:00] VITALS: BP 136/88
[2020-03-12 00:15] LABS: ALT/SGPT 9 U/L (12-78); BILIRUBIN,TOTAL 0.6 MG/DL (0.2-1.0); BLOOD UREA NITROGEN 28 MG/DL (7-18); CALCIUM LEVEL 8.2 MG/DL (8.8-10.2); CARBON DIOXIDE LEVEL 21 MEQ/L (21-32); CHLORIDE LEVEL 120 MEQ/L (98-107); CREATININE FOR GFR 1.34 MG/DL (0.70-1.30); GLOMERULAR FILTRATION RATE > 60.0 (>49); GLUCOSE, FASTING 93 MG/DL (70-100); PHOSPHORUS LEVEL 2.6 MG/DL (2.5-4.9); POTASSIUM SERUM 3.3 MEQ/L (3.5-5.1); SODIUM LEVEL 150 MEQ/L (136-145); TOTAL PROTEIN 6.8 GM/DL (6.4-8.2)
[2020-03-12 00:33] LABS: HEMATOCRIT 30.4 % (42.0-52.0); HEMOGLOBIN 9.4 g/dl (13.5-17.5); MEAN CORPUSCULAR HEMOGLOBIN 30.2 pg (27.0-33.0); MEAN CORPUSCULAR HGB CONC 30.9 g/dl (32.0-36.5); MEAN CORPUSCULAR VOLUME 97.7 fl (80.0-96.0); PLATELET COUNT, AUTOMATED 137 10^3/uL (150-450); RED BLOOD COUNT 3.11 10^6/uL (4.30-6.10); WHITE BLOOD COUNT 28.2 10^3/uL (4.0-10.0)
[2020-03-12 01:05] LABS: ERYTHROCYTE SEDIMENTATION RATE 60 mm/hr (0-20)
[2020-03-12] MEDS: PIPERACILLIN/TAZOBACTAM SOD 3.375 GM in D5W MINI-BAG PLUS 50 ML IV SCH ×3 (03:03→18:20)
[2020-03-12 04:47] LABS: ALBUMIN 1.4 GM/DL (3.2-5.2); ALT/SGPT 9 U/L (12-78); BILIRUBIN,TOTAL 0.5 MG/DL (0.2-1.0); BLOOD UREA NITROGEN 27 MG/DL (7-18); CALCIUM LEVEL 8.5 MG/DL (8.8-10.2); CARBON DIOXIDE LEVEL 16 MEQ/L (21-32); CHLORIDE LEVEL 123 MEQ/L (98-107); CREATININE FOR GFR 1.24 MG/DL (0.70-1.30); GLOMERULAR FILTRATION RATE > 60.0 (>49); GLUCOSE, FASTING 84 MG/DL (70-100); MAGNESIUM LEVEL 1.8 MG/DL (1.8-2.4); PHOSPHORUS LEVEL 2.5 MG/DL (2.5-4.9); POTASSIUM SERUM 3.2 MEQ/L (3.5-5.1); SODIUM LEVEL 145 MEQ/L (136-145); TOTAL PROTEIN 6.4 GM/DL (6.4-8.2)
[2020-03-12] MEDS: HumaLOG INSULIN (NovoLOG) PER UNIT SC SCH ×4 (06:00→18:00)
[2020-03-12] MEDS: DRONABINOL 2.5 MG CAP (MARINOL) PO SCH ×4 (07:30→20:46)
[2020-03-12 07:54] LABS: BASO # 0.1 10^3/uL (0.0-0.2); BASO % 0.2 % (0.0-1.0); EOS # 0.1 10^3/uL (0.0-0.5); EOS % 0.5 % (0.0-3.0); HEMOGLOBIN 9.5 g/dl (13.5-17.5); LYMPH # 1.6 10^3/uL (1.5-5.0); MEAN CORPUSCULAR HEMOGLOBIN 29.4 pg (27.0-33.0); MEAN CORPUSCULAR HGB CONC 29.7 g/dl (32.0-36.5); MEAN CORPUSCULAR VOLUME 99.1 fl (80.0-96.0); MONO # 1.2 10^3/uL (0.0-0.8); MONO % 5.2 % (0.0-5.0); NEUTROPHILS # 19.5 10^3/uL (1.5-8.5); PLATELET COUNT, AUTOMATED 118 10^3/uL (150-450); RED BLOOD COUNT 3.23 10^6/uL (4.30-6.10); WHITE BLOOD COUNT 22.7 10^3/uL (4.0-10.0)
[2020-03-12] MEDS: VENLAFAXINE **XR** 37.5 MG CAPSULE PO SCH (08:49)
[2020-03-12] MEDS: OMEPRAZOLE 20 MG CAP PO SCH ×2 (08:49→20:47)
[2020-03-12] MEDS: THIAMINE 100 MG TAB PO SCH (08:49)
[2020-03-12] MEDS: SPIRONOLACTONE 25 MG TAB PO SCH (08:50)
[2020-03-12] MEDS: MAGNESIUM CHLORIDE 64 MG TABCR (SLO MAG) PO SCH (08:50)
[2020-03-12] MEDS ORDERED: MAG SULF 1GM/100ML (MAG RUN) 1 GM in IV 1 EA IV ONE (09:00)
--- NOTE | 2020-03-12 09:53 | IPNPDOC ---
Text Note Date of Service The patient was seen on 03/12/20. NOTE Subjective: Patient quiet in the morning. Patient continues to have very poor oral intake. Most of the time she is very lethargic, is not oriented in time, in place, very minimally follows commands. Objective: PHYSICAL EXAMINATION: VITAL SIGNS: Please see below. GENERAL: Cachectic male, not oriented in place CARDIOVASCULAR: RRR, normal S1/2, no Murmur Rub or Gallop appreciated RESPIRATORY: CTA B/L, no diabetes/R/R ABDOMINAL: Soft, nontender, nondistended EXTREMITIES: No edema, intact distal pulses SKIN: No rash or skin breakdown NEUROLOGICAL: moving both upper extremities spontaneously. No nuchal rigidity, barely follows simple commands This is a 59-year-old male, -[place], with h/o alcohol abuse, COPD/emphysema brought in to the ED o 02/08 due to confusion which was felt to be due to alcohol withdrawal/ Wernicke encephalopathy and multiple acute ischem ic CVAs noted on MRI done the next day. Started on eliquis for possible embolic strokes. On 02/12 he developed SOB, found to have right subsegmental acute pulmonary embolism, bibasilar infiltrates and COPD exacerbation. He was transitioned to heparin drip and started on Zosyn. On 02/13 he had a Rapid assessment call for acute respiratory failure and patient was urgently intubated for agonal respirations. NG tube placement post intubation showed massive GIB. About 1.2 liters of coffee ground materials were aspirated out. The patient developed hypotension with GI bleed and went into hemorrhagic shock requiring 3 units of RBC transfusion, 2 packs of FFP, 1 pack of platelets and protamine. Em ergent Esophagogastroduodenoscopy (EGD) showed four deep duodenal ulcers and severe esophagitis. His bilateral basal infiltrates were felt to be due to aspiration pneumonia. He had an IVC filter placed as he cannot be anticoagulated. Postextubation, the patient completed Zosyn for aspiration pneumonia but failed a swallow evaluation, currently on TPN. Patient is being evaluated by a ARU and speech is assessing to see if we can d/c TPN and start diet. Speech therapist recommended modified diet, TPN was discontinued. Unfortunately, patient has failed to thrive, has a very poor appetite and most of the time he is very confused. After discussion with family and according to family wishes patient was transferred to [facility]. Await hospice bed. 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 His wanted to take him home, she believes patient in family environment will recover faster. In the evening on 03/10/25 I updated his Pati and discussed with her the goal of treatment. After discussion Pati decided that her would benefit from PEG tube placement and feeding. The family wanted to place the feeding tube and feed the patient for next 2 weeks. On 03/10/20 in the evening patient developed hypernatremia. He received IV fluid. During the night patient developed spiking fever with leukocytosis. IV antibiotics started. Sepsis Most likely due to UTI, urine analysis showed pyuria Chest x-ray did not show acute pulmonary infiltrate blood culture negative, urine culture pending. Leukocytosis improved Vancomycin IV DC, Zosyn IV MRSA screen negative IV fluid Hypernatremia Resolved Most likely secondary to dehydration patient has a very poor oral intake CMP every 4 hours will continue to monitor phosphorus, magnesium IV fluid Acute metabolic encephalopathy Multifactorial, most likely secondary to Wernicke encephalopathy, recent ischemic stroke There is possibility that this level of mentation is his a new baseline Aspiration pneumonia Secondary to severe oropharyngeal dysfunction after stroke and alcohol withdrawal Completed course of Zosyn Dysphagia ST follows him, diet was modified. Patient does not have severe oropharyngeal dysfunction and his able to swallow. On 03/10/20 his wanted PEG tube placement. However patient developed sepsis. I started PPN for now Surgical team will place PEG after initial stabilization Pulmonary embolism Patient is not anticoagulated due to recent massive GI bleed IVC filter placed Acute Gastrointestinal bleed, resolved. Due to duodenal ulcers and esophagitis Hemoglobin and hematocrit remain stable. Continue PPI Bilateral CVA aspirin on hold due to recent massive GI bleed Acute kidney injury resolved. Chronic obstructive pulmonary disease (COPD). No exacerbation at this time Cachexia Patient has low BMI, low albumin, bitemporal wasting I started Marinol to increase his appetite Started PPN on 03/11/20. 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 Elevation of the head/upper body less then 30 degrees does not usually require the use of a hospital bed. The patient requires frequent changes in body position and/or has an immediate need for a change in body position PT/OT VS,Camacho, I+O VS, Camacho, I+O Laboratory Tests 03/11/20 11:28 03/11/20 15:35 03/11/20 19:43 03/11/20 23:39 03/12/20 04:01 Vital Signs Date Time Temp Pulse Resp B/P (MAP) Pulse Ox O2 Delivery O2 Flow Rate FiO2 03/11/20 22:00 96.5 96 20 136/88 (104) 96 Room Air I&O- Last 24 Hours up to 6 AM 03/12/20 06:00 Intake Total 4275 ml Output Total 320 ml Balance 3955 ml RODOLFO YUAN DO Mar 12, 2020 09:53
[2020-03-12] MEDS ORDERED: KCL 10MEQ/100ML SWI (KRUN) 10 MEQ in IV 1 EA IV ONE ×2 (10:00→22:15)
[2020-03-12] MEDS: KCL 20MEQ IN D5/NS 1000ML 1,000 ML IV SCH (13:04)
[2020-03-12 13:11] LABS: ALBUMIN 1.9 GM/DL (3.2-5.2); ALT/SGPT 8 U/L (12-78); BILIRUBIN,TOTAL 0.5 MG/DL (0.2-1.0); BLOOD UREA NITROGEN 24 MG/DL (7-18); CALCIUM LEVEL 8.3 MG/DL (8.8-10.2); CARBON DIOXIDE LEVEL 21 MEQ/L (21-32); CHLORIDE LEVEL 122 MEQ/L (98-107); CREATININE FOR GFR 1.19 MG/DL (0.70-1.30); GLOMERULAR FILTRATION RATE > 60.0 (>49); GLUCOSE, FASTING 92 MG/DL (70-100); MAGNESIUM LEVEL 2.4 MG/DL (1.8-2.4); POTASSIUM SERUM 3.6 MEQ/L (3.5-5.1); SODIUM LEVEL 153 MEQ/L (136-145); TOTAL PROTEIN 5.9 GM/DL (6.4-8.2)
[2020-03-12 14:00] VITALS: BP 126/64
[2020-03-12] MEDS ORDERED: KCL 20MEQ IN D5/0.45NS 1000ML 1,000 ML IV SCH (14:00)
[2020-03-12] MEDS ORDERED: D5W/0.45% SODIUM CHLORIDE 1,000 ML IV ONE (14:15)
[2020-03-12 16:07] LABS: ALT/SGPT 9 U/L (12-78); BILIRUBIN,TOTAL 0.4 MG/DL (0.2-1.0); BLOOD UREA NITROGEN 23 MG/DL (7-18); CALCIUM LEVEL 8.7 MG/DL (8.8-10.2); CARBON DIOXIDE LEVEL 21 MEQ/L (21-32); CHLORIDE LEVEL 121 MEQ/L (98-107); CREATININE FOR GFR 1.21 MG/DL (0.70-1.30); GLOMERULAR FILTRATION RATE > 60.0 (>49); GLUCOSE, FASTING 121 MG/DL (70-100); MAGNESIUM LEVEL 2.3 MG/DL (1.8-2.4); PHOSPHORUS LEVEL 2.9 MG/DL (2.5-4.9); POTASSIUM SERUM 3.2 MEQ/L (3.5-5.1); SODIUM LEVEL 148 MEQ/L (136-145); TOTAL PROTEIN 6.6 GM/DL (6.4-8.2)
[2020-03-12] MEDS ORDERED: ZOSYN 3.375GM VIAL (J2543) As Ordered ONE (17:32)
[2020-03-12] MEDS ORDERED: FAT EMULSION IV 20% 500 ML IV SCH (18:00)
[2020-03-12] MEDS ORDERED: POTASSIUM CHLORIDE 10 MEQ SR TABLET PO ONE (18:00)
[2020-03-12] MEDS: AMINO AC/ELECTROLYTE/DEX/CALC 1,000 ML IV SCH (18:01)
[2020-03-12 20:05] LABS: ALBUMIN 1.9 GM/DL (3.2-5.2); ALT/SGPT 8 U/L (12-78); BILIRUBIN,TOTAL 0.5 MG/DL (0.2-1.0); BLOOD UREA NITROGEN 21 MG/DL (7-18); CALCIUM LEVEL 8.2 MG/DL (8.8-10.2); CARBON DIOXIDE LEVEL 20 MEQ/L (21-32); CHLORIDE LEVEL 121 MEQ/L (98-107); CREATININE FOR GFR 1.12 MG/DL (0.70-1.30); GLOMERULAR FILTRATION RATE > 60.0 (>49); GLUCOSE, FASTING 78 MG/DL (70-100); POTASSIUM SERUM 3.3 MEQ/L (3.5-5.1); SODIUM LEVEL 151 MEQ/L (136-145); TOTAL PROTEIN 6.7 GM/DL (6.4-8.2)
[2020-03-12 22:00] VITALS: BP 133/80
[2020-03-12] MEDS ORDERED: POTASSIUM CHLORIDE INJ 20 MEQ in D5W/LR 1,000 ML IV SCH (22:30)
[2020-03-12 23:31] LABS: ALBUMIN 1.9 GM/DL (3.2-5.2); ALT/SGPT 7 U/L (12-78); BILIRUBIN,TOTAL 0.5 MG/DL (0.2-1.0); BLOOD UREA NITROGEN 20 MG/DL (7-18); CALCIUM LEVEL 8.1 MG/DL (8.8-10.2); CARBON DIOXIDE LEVEL 22 MEQ/L (21-32); CHLORIDE LEVEL 122 MEQ/L (98-107); CREATININE FOR GFR 1.09 MG/DL (0.70-1.30); GLOMERULAR FILTRATION RATE > 60.0 (>49); GLUCOSE, FASTING 81 MG/DL (70-100); POTASSIUM SERUM 3.4 MEQ/L (3.5-5.1); SODIUM LEVEL 152 MEQ/L (136-145)
[2020-03-13] MEDS: PIPERACILLIN/TAZOBACTAM SOD 3.375 GM in D5W MINI-BAG PLUS 50 ML IV SCH ×4 (00:41→17:23)
[2020-03-13 03:30] LABS: ALBUMIN 1.7 GM/DL (3.2-5.2); ALT/SGPT 7 U/L (12-78); BILIRUBIN,TOTAL 0.5 MG/DL (0.2-1.0); BLOOD UREA NITROGEN 18 MG/DL (7-18); CARBON DIOXIDE LEVEL 20 MEQ/L (21-32); CHLORIDE LEVEL 123 MEQ/L (98-107); CREATININE FOR GFR 0.99 MG/DL (0.70-1.30); GLOMERULAR FILTRATION RATE > 60.0 (>49); GLUCOSE, FASTING 86 MG/DL (70-100); POTASSIUM SERUM 3.3 MEQ/L (3.5-5.1); SODIUM LEVEL 151 MEQ/L (136-145); TOTAL PROTEIN 5.8 GM/DL (6.4-8.2)
[2020-03-13 06:00] VITALS: BP 154/80
[2020-03-13] MEDS: HumaLOG INSULIN (NovoLOG) PER UNIT SC SCH ×3 (06:00→12:00)
[2020-03-13 06:29] LABS: BASO % 0.1 % (0.0-1.0); EOS # 0.4 10^3/uL (0.0-0.5); EOS % 2.8 % (0.0-3.0); HEMATOCRIT 28.3 % (42.0-52.0); HEMOGLOBIN 8.9 g/dl (13.5-17.5); LYMPH # 1.4 10^3/uL (1.5-5.0); LYMPH % 10.2 % (24.0-44.0); MEAN CORPUSCULAR HEMOGLOBIN 29.9 pg (27.0-33.0); MEAN CORPUSCULAR HGB CONC 31.4 g/dl (32.0-36.5); MONO # 0.6 10^3/uL (0.0-0.8); MONO % 4.3 % (0.0-5.0); NEUTROPHILS # 11.3 10^3/uL (1.5-8.5); NEUTROPHILS % 81.4 % (36.0-66.0); PLATELET COUNT, AUTOMATED 130 10^3/uL (150-450); RED BLOOD COUNT 2.98 10^6/uL (4.30-6.10); WHITE BLOOD COUNT 13.8 10^3/uL (4.0-10.0)
[2020-03-13 06:52] LABS: ALBUMIN 1.7 GM/DL (3.2-5.2); ALT/SGPT 9 U/L (12-78); BILIRUBIN,TOTAL 0.5 MG/DL (0.2-1.0); BLOOD UREA NITROGEN 16 MG/DL (7-18); CALCIUM LEVEL 8.4 MG/DL (8.8-10.2); CARBON DIOXIDE LEVEL 20 MEQ/L (21-32); CHLORIDE LEVEL 123 MEQ/L (98-107); CREATININE FOR GFR 1.01 MG/DL (0.70-1.30); GLOMERULAR FILTRATION RATE > 60.0 (>49); GLUCOSE, FASTING 75 MG/DL (70-100); POTASSIUM SERUM 3.5 MEQ/L (3.5-5.1); SODIUM LEVEL 149 MEQ/L (136-145); TOTAL PROTEIN 5.6 GM/DL (6.4-8.2)
[2020-03-13] MEDS ORDERED: D5W/LR 1,000 ML IV SCH (08:15)
[2020-03-13] MEDS ORDERED: KCL 10MEQ/100ML SWI (KRUN) 10 MEQ in IV 1 EA IV ONE (08:30)
[2020-03-13] MEDS: MAGNESIUM CHLORIDE 64 MG TABCR (SLO MAG) PO SCH (08:59)
[2020-03-13] MEDS: SPIRONOLACTONE 25 MG TAB PO SCH (08:59)
[2020-03-13] MEDS: DRONABINOL 2.5 MG CAP (MARINOL) PO SCH ×4 (08:59→21:00)
[2020-03-13] MEDS: OMEPRAZOLE 20 MG CAP PO SCH ×2 (08:59→21:00)
[2020-03-13] MEDS: VENLAFAXINE **XR** 37.5 MG CAPSULE PO SCH (08:59)
[2020-03-13] MEDS: THIAMINE 100 MG TAB PO SCH (09:00)
[2020-03-13] MEDS ORDERED: POTASSIUM PHOSPHATE INJ 20 MMOL in D5W 250 ML IV ONE (10:00)
[2020-03-13 11:45] LABS: ALBUMIN 1.9 GM/DL (3.2-5.2); ALT/SGPT 10 U/L (12-78); BILIRUBIN,TOTAL 0.5 MG/DL (0.2-1.0); BLOOD UREA NITROGEN 14 MG/DL (7-18); CALCIUM LEVEL 8.6 MG/DL (8.8-10.2); CARBON DIOXIDE LEVEL 22 MEQ/L (21-32); CHLORIDE LEVEL 122 MEQ/L (98-107); CREATININE FOR GFR 1.02 MG/DL (0.70-1.30); GLOMERULAR FILTRATION RATE > 60.0 (>49); GLUCOSE, FASTING 83 MG/DL (70-100); POTASSIUM SERUM 3.4 MEQ/L (3.5-5.1); SODIUM LEVEL 150 MEQ/L (136-145); TOTAL PROTEIN 6.4 GM/DL (6.4-8.2)
--- NOTE | 2020-03-13 12:20 | IPNPDOC ---
Text Note Date of Service The patient was seen on 03/13/20. NOTE Subjective: Patient is more awake and alert in the morning. Patient follows s imple commands. Patient continues to have very poor oral intake. Objective: PHYSICAL EXAMINATION: VITAL SIGNS: Please see below. GENERAL: Cachectic male, not oriented in place CARDIOVASCULAR: RRR, normal S1/2, no Murmur Rub or Gallop appreciated RESPIRATORY: CTA B/L, no diabetes/R/R ABDOMINAL: Soft, nontender, nondistended EXTREMITIES: No edema, intact distal pulses SKIN: No rash or skin breakdown NEUROLOGICAL: No nuchal rigidity, follows simple commands This is a 59-year-old male, -Slovak, with h/o alcohol abuse, COPD/emphysema brought in to the ED o 02/08 due to confusion which was felt to be due to alcohol withdrawal/ Wernicke encephalopathy and multiple acute ischemic CVAs noted on MRI done the next day. Started on eliquis for possible embolic strokes. On 02/12 he developed SOB, found to have right subsegmental acute pulmonary embolism, bibasilar infiltrates and COPD exacerbation. He was transitioned to heparin drip and started on Zosyn. On 02/13 he had a Rapid ass essment call for acute respiratory failure and patient was urgently intubated for agonal respirations. NG tube placement post intubation showed massive GIB. About 1.2 liters of coffee ground materials were aspirated out. The patient developed hypotension with GI bleed and went into hemorrhagic shock requiring 3 units of RBC transfusion, 2 packs of FFP, 1 pack of platelets and protamine. Emergent Esophagogastroduodenoscopy (EGD) showed four deep duodenal ulcers and severe esophagitis. His bilateral basal infiltrates were felt to be due to aspiration pneumonia. He had an IVC filter placed as he cannot be anticoagulated. Postextubation, the patient completed Zosyn for aspiration pneumonia but failed a swallow evaluation, currently on TPN. Patient is being evaluated by a ARU and speech is assessing to see if we can d/c TPN and start diet. Speech therapist recommended modified diet, TPN was discontinued. Unfortunately, patient has failed to thrive, has a very poor appetite and most of the time he is very confused. After discussion with family and according to family wishes patient was transferred to [facility]. Awaited hospice bed. 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 His wanted to take him home, she believed patient in family environment pt will recover faster. In the evening on 03/10/25 I updated his Pati and discussed with her the goal of treatment. After discussion, Pati decided that her would benefit from PEG tube placement and feeding. The family wanted to place the feeding tube and feed the patient for next 2 weeks. On 03/10/20 in the evening patient developed hypernatremia. He received IV fluid. During the night patient developed spiking fever with leukocytosis secondary to UTI. IV antibiotics started. Sepsis Resolved Most likely due to UTI, urine analysis showed pyuria Chest x-ray did not show acute pulmonary infiltrate blood culture negative, urine culture pending. Leukocytosis improved Vancomycin IV DC, Zosyn IV MRSA screen negative IV fluid Hypernatremia Continue monitor electrolytes Most likely secondary to dehydration patient has a very poor oral intake CMP every 4 hours will continue to monitor phosphorus, magnesium Continue IV fluid Acute metabolic encephalopathy Multifactorial, most likely secondary to Wernicke encephalopathy, recent ischemic stroke There is possibility that this level of mentation is his a new baseline Aspiration pneumonia Resolved Secondary to severe oropharyngeal dysfunction after stroke and alcohol withdrawal Completed course of Zosyn Dysphagia ST follows him, diet was modified. Patient does not have severe oropharyngeal dysfunction and his able to swallow. On 03/10/20 his wanted PEG tube placement. However patient developed sepsis. I started PPN for now Surgical team will place PEG after initial stabilization Pulmonary embolism Patient is not anticoagulated due to recent massive GI bleed IVC filter placed Acute Gastrointestinal bleed, resolved. Due to duodenal ulcers and esophagitis Hemoglobin and hematocrit remain stable. Continue PPI Bilateral CVA aspirin on hold due to recent massive GI bleed Acute kidney injury resolved. Chronic obstructive pulmonary disease (COPD). No exacerbation at this time Cachexia Patient has low BMI, low albumin, bitemporal wasting I started Marinol to increase his appetite Started PPN on 03/11/20. 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 Elevation of the head/upper body less then 30 degrees does not usually require the use of a hospital bed. The patient requires frequent changes in body position and/or has an immediate need for a change in body position PT/OT VS,Reyesbone, I+O VS, Jamiee, I+O Laboratory Tests 03/12/20 15:31 03/12/20 19:22 03/12/20 22:57 03/13/20 02:54 03/13/20 05:58 03/13/20 11:08 Vital Signs Date Time Temp Pulse Resp B/P (MAP) Pulse Ox O2 Delivery O2 Flow Rate FiO2 03/13/20 06:00 98.2 86 20 154/80 (104) 100 Room Air I&O- Last 24 Hours up to 6 AM 03/13/20 06:00 Intake Total 240 ml Balance 240 ml RODOLFO YUAN DO Mar 13, 2020 12:20
[2020-03-13] MEDS ORDERED: D5W/0.45% SODIUM CHLORIDE 1,000 ML IV ONE (12:30)
[2020-03-13] MEDS ORDERED: KCL 20MEQ IN D5W 1000ML 1,000 ML IV SCH (13:00)
[2020-03-13 14:00] VITALS: BP 118/61
[2020-03-13 14:55] LABS: HEMATOCRIT 29.5 % (42.0-52.0); HEMOGLOBIN 9.2 g/dl (13.5-17.5)
[2020-03-13 15:23] LABS: ALBUMIN 1.7 GM/DL (3.2-5.2); ALT/SGPT 7 U/L (12-78); BILIRUBIN,TOTAL 0.4 MG/DL (0.2-1.0); BLOOD UREA NITROGEN 13 MG/DL (7-18); CALCIUM LEVEL 8.3 MG/DL (8.8-10.2); CARBON DIOXIDE LEVEL 20 MEQ/L (21-32); CHLORIDE LEVEL 122 MEQ/L (98-107); CREATININE FOR GFR 0.98 MG/DL (0.70-1.30); GLOMERULAR FILTRATION RATE > 60.0 (>49); GLUCOSE, FASTING 80 MG/DL (70-100); POTASSIUM SERUM 4.2 MEQ/L (3.5-5.1); SODIUM LEVEL 148 MEQ/L (136-145)
--- NOTE | 2020-03-13 15:26 | CR ---
DATE OF CONSULTATION: 03/13/2020 REASON FOR CONSULTATION: Poor oral intake/stroke with need for enteral feeds. BRIEF HISTORY OF PRESENT ILLNESS: The patient is a 59-year-old male who was admitted last month with metabolic encephalopathy and was treated for this encephalopathy, which really has not significantly improved. He has had some strokes present. He has been on anticoagulation. This was stopped because of a gastrointestinal (GI) bleed and was seen by GI for evidence of esophagitis and duodenal ulcers. Has not had any melanotic stools, although his hematocrit did drop a little bit today. Overall, I was asked to see him in consultation for percutaneous endoscopic gastrostomy (PEG) tube placement. His past medical history is significant for a history of alcohol abuse, history of emphysema, history of chronic obstructive pulmonary disease (COPD), history of multiple acute ischemic CVAs, history of pulmonary embolism, bibasilar infiltrates, COPD exacerbation, GI bleed, aspiration pneumonia, dysphasia, acute kidney injury, cachexia, depression, deconditioning. Medications include some total parenteral nutrition (TPN), antibiotics for possible pneumonia, spironolactone, allopurinol, magnesium, thiamine, Effexor, Prilosec, Marinol inhalers. Physical exam reveals a 59-year-old -[place] male who looks much older than stated age. HEENT is unremarkable. Although he is not combative, he is poorly responsive and agitated. Lungs are clear anteriorly, although diminished posteriorly with some crackles at bases. Heart is regular with multiple irregular beats. Abdomen is soft, nontender. IMPRESSION/PLAN: The patient has evidence of strokes with his confusion and he has been having poor oral intake. I you feel that from a discharge standpoint he will need some sort of nutritional supplement, so a PEG tube is very reasonable in this individual. Should the family desire to continue current treatment I do feel that his white count is still elevate. I would like that to return to normal prior to placing the PEG tube and his hematocrit is down a little bit this afternoon both of which may partially be from dilution. However, if he is diluted from a white count standpoint that suggest that he may still has some infectious process that would be better served without significant general anesthesia and he may need a percutaneous gastrostomy through interventional radiology if we feel that his lungs are still compromised. However with a hematocrit drop in his previous GI bleed, I do feel that we need to make changes overnight and see how he is doing in the morning. Will reevaluate his white blood cell count/complete blood count (CBC) in the morning and determine our next course of action. Otherwise, he will need to stay off anticoagulation as he has. The patient had a normal white count a week ago and thus, I anticipate this should return back to normal over the ensuing few days if we are treating a supposed aspiration pneumonia at this time. Otherwise, will check operating room (OR) scheduling and see when we can fit him into the schedule over the ensuing few days.
[2020-03-13] MEDS: AMINO AC/ELECTROLYTE/DEX/CALC 1,000 ML IV SCH (17:50)
[2020-03-13] MEDS ORDERED: FAT EMULSION IV 20% 500 ML IV SCH (18:00)
[2020-03-13 20:09] LABS: ALBUMIN 1.7 GM/DL (3.2-5.2); ALT/SGPT 9 U/L (12-78); BILIRUBIN,TOTAL 0.5 MG/DL (0.2-1.0); BLOOD UREA NITROGEN 11 MG/DL (7-18); CARBON DIOXIDE LEVEL 21 MEQ/L (21-32); CHLORIDE LEVEL 118 MEQ/L (98-107); CREATININE FOR GFR 0.93 MG/DL (0.70-1.30); GLOMERULAR FILTRATION RATE > 60.0 (>49); GLUCOSE, FASTING 79 MG/DL (70-100); MAGNESIUM LEVEL 1.8 MG/DL (1.8-2.4); PHOSPHORUS LEVEL 3.7 MG/DL (2.5-4.9); POTASSIUM SERUM 3.5 MEQ/L (3.5-5.1); SODIUM LEVEL 147 MEQ/L (136-145)
[2020-03-13 22:00] VITALS: BP 154/92
[2020-03-13 23:37] LABS: ALBUMIN 1.7 GM/DL (3.2-5.2); ALT/SGPT 8 U/L (12-78); BILIRUBIN,TOTAL 0.4 MG/DL (0.2-1.0); BLOOD UREA NITROGEN 11 MG/DL (7-18); CARBON DIOXIDE LEVEL 23 MEQ/L (21-32); CHLORIDE LEVEL 117 MEQ/L (98-107); CREATININE FOR GFR 0.91 MG/DL (0.70-1.30); GLOMERULAR FILTRATION RATE > 60.0 (>49); GLUCOSE, FASTING 80 MG/DL (70-100); MAGNESIUM LEVEL 1.4 MG/DL (1.8-2.4); PHOSPHORUS LEVEL 3.9 MG/DL (2.5-4.9); POTASSIUM SERUM 3.3 MEQ/L (3.5-5.1); SODIUM LEVEL 145 MEQ/L (136-145); TOTAL PROTEIN 5.9 GM/DL (6.4-8.2)
[2020-03-14] MEDS: PIPERACILLIN/TAZOBACTAM SOD 3.375 GM in D5W MINI-BAG PLUS 50 ML IV SCH ×5 (00:47→17:31)
[2020-03-14] MEDS: AMINO AC/ELECTROLYTE/DEX/CALC 1,000 ML IV SCH ×2 (03:29→13:56)
[2020-03-14 05:41] LABS: CLOSTRIDIUM DIFFICILE PCR NEGATIVE (NEGATIVE)
[2020-03-14 06:00] VITALS: BP 148/84
[2020-03-14] MEDS ORDERED: DEXTROSE 50% 50 ML SYRINGE IV PRN (06:00)
[2020-03-14] MEDS ORDERED: HumaLOG INSULIN (NovoLOG) PER UNIT SC SCH (06:00)
[2020-03-14] MEDS: HumaLOG INSULIN (NovoLOG) PER UNIT SC SCH ×3 (06:00→18:00)
[2020-03-14] MEDS ORDERED: GLUCAGON INJ 1MG VIAL SC PRN (06:00)
[2020-03-14] MEDS ORDERED: GLUCOSE 4GM CHEW TABLET PO PRN (06:00)
[2020-03-14 07:02] LABS: ALBUMIN 1.9 GM/DL (3.2-5.2); ALT/SGPT 7 U/L (12-78); BILIRUBIN,TOTAL 0.8 MG/DL (0.2-1.0); BLOOD UREA NITROGEN 10 MG/DL (7-18); CALCIUM LEVEL 8.2 MG/DL (8.8-10.2); CARBON DIOXIDE LEVEL 22 MEQ/L (21-32); CHLORIDE LEVEL 115 MEQ/L (98-107); CREATININE FOR GFR 0.81 MG/DL (0.70-1.30); GLOMERULAR FILTRATION RATE > 60.0 (>49); GLUCOSE, FASTING 76 MG/DL (70-100); MAGNESIUM LEVEL 1.9 MG/DL (1.8-2.4); POTASSIUM SERUM 3.8 MEQ/L (3.5-5.1); SODIUM LEVEL 144 MEQ/L (136-145); TOTAL PROTEIN 6.1 GM/DL (6.4-8.2)
[2020-03-14 07:04] LABS: BASO % 0.2 % (0.0-1.0); EOS # 0.4 10^3/uL (0.0-0.5); EOS % 3.9 % (0.0-3.0); HEMATOCRIT 29.7 % (42.0-52.0); HEMOGLOBIN 9.3 g/dl (13.5-17.5); LYMPH # 1.3 10^3/uL (1.5-5.0); LYMPH % 14.1 % (24.0-44.0); MEAN CORPUSCULAR HEMOGLOBIN 29.5 pg (27.0-33.0); MEAN CORPUSCULAR HGB CONC 31.3 g/dl (32.0-36.5); MEAN CORPUSCULAR VOLUME 94.3 fl (80.0-96.0); MONO # 0.4 10^3/uL (0.0-0.8); MONO % 4.6 % (0.0-5.0); NEUTROPHILS # 6.9 10^3/uL (1.5-8.5); NEUTROPHILS % 76.3 % (36.0-66.0); PLATELET COUNT, AUTOMATED 157 10^3/uL (150-450); RED BLOOD COUNT 3.15 10^6/uL (4.30-6.10); WHITE BLOOD COUNT 9.1 10^3/uL (4.0-10.0)
[2020-03-14] MEDS: DRONABINOL 2.5 MG CAP (MARINOL) PO SCH ×4 (08:50→21:00)
[2020-03-14] MEDS: VENLAFAXINE **XR** 37.5 MG CAPSULE PO SCH (08:50)
[2020-03-14] MEDS: MAGNESIUM CHLORIDE 64 MG TABCR (SLO MAG) PO SCH (08:51)
[2020-03-14] MEDS: SPIRONOLACTONE 25 MG TAB PO SCH (08:51)
[2020-03-14] MEDS: OMEPRAZOLE 20 MG CAP PO SCH ×2 (08:51→21:00)
[2020-03-14] MEDS: THIAMINE 100 MG TAB PO SCH (08:52)
--- NOTE | 2020-03-14 10:41 | IPN ---
DATE OF SERVICE: 03/14/2020 The patient was admitted with some medical issues, metabolic encephalopathy, has had poor intake and at this point we have discussed proceeding with a percutaneous endoscopic gastrostomy (PEG) tube with the operating room (OR) staff. At this point we are seeing that his white count has returned to normal and thus seems to be making some good progress from a infectious standpoint. He seems a little more alert today and otherwise his abdomen is soft. IMPRESSION AND PLAN: The patient seems to be making some good progress. I am in the office tomorrow and we will thus schedule him for a PEG tube placement on . He will need to be nothing by mouth that day and otherwise we will have to hold his anticoagulation and will discuss this with his family prior to PEG tube placement.
[2020-03-14] MEDS ORDERED: LIDOCAINE 1% MDV 20ML VIAL As Ordered ONE (11:29)
--- NOTE | 2020-03-14 13:11 | REP ---
PICC line insertion under ultrasound guidance. The procedure was performed by GREYSON Man, under the direct supervision of Dr. Quezada. The risks and benefits of the procedure were explained to the patient and informed consent was obtained both verbally and written. Directly prior to the start of the procedure, a formal timeout was completed in the procedure room. The right lateral brachial vein was localized using ultrasound guidance. The skin was prepped and draped in the sterile fashion. 1 ml 1% lidocaine 10 mg/ml was used as a local anesthetic. Using ultrasound guidance the right lateral brachial vein was cannulated and a 0.018 guidewire was inserted and advanced to the SVC using fluoroscopic guidance. The needle was removed and a 5.5 [place] dilator and peel-away sheath was inserted over the guidewire. A 5.5 [place] dual lumen catheter was cut to the length of 40 cm. The dilator was removed and the catheter was inserted over the guide wire with the tip ending in the SVC. The peel-away sheath was removed and the catheter was flushed with heparinized saline as per hospital protocol. The catheter was affixed to the skin and a sterile dressing was applied. The patient tolerated the procedure well and there were no immediate complications. 0.6 minutes of fluoroscopy time was utilized for this procedure. Some fluoroscopic images are performed with last image hold technology. These images require no additional radiation. Reviewed by GREYSON [place] 03/14/2020 12:58 P Electronically Signed by Favio Quezada MD 03/14/2020 01:02 P
[2020-03-14] MEDS ORDERED: SODIUM CHLORIDE 0.9% INJ 10 ML SYR IV PRN (13:30)
--- NOTE | 2020-03-14 13:32 | IPNPDOC ---
Text Note Date of Service The patient was seen on 03/14/20. NOTE Subjective: Patient is more awake and alert in the morning. Patient follows s imple commands. Patient continues to have very poor oral intake. No any acute events overnight Objective: PHYSICAL EXAMINATION: VITAL SIGNS: Please see below. GENERAL: Cachectic male, not oriented in place CARDIOVASCULAR: RRR, normal S1/2, no Murmur Rub or Gallop appreciated RESPIRATORY: CTA B/L, no diabetes/R/R ABDOMINAL: Soft, nontender, nondistended EXTREMITIES: No edema, intact distal pulses SKIN: No rash or skin breakdown NEUROLOGICAL: No nuchal rigidity, follows simple commands This is a 59-year-old male, -[place], with h/o alcohol abuse, COPD/emphysema brought in to the ED o 02/08 due to confusion which was felt to be due to alcohol withdrawal/ Wernicke encephalopathy and multiple acute ischemic CVAs noted on MRI done the next day. Started on eliquis for possible embolic strokes. On 02/12 he developed SOB, found to have right subsegmental acute pulmonary embolism, bibasilar infiltrates and COPD exacerbation. He was transitioned to heparin drip and started on Zosyn. On 02/13 he had a Rapid assessment call for acute respiratory failure and patient was urgently intubated for agonal respirations. NG tube placement post intubation showed massive GIB. About 1.2 liters of coffee ground materials were aspirated out. The patient developed hypotension with GI bleed and went into hemorrhagic shock requiring 3 units of RBC transfusion, 2 packs of FFP, 1 pack of platelets and protamine. Emergent Esophagogastroduodenoscopy (EGD) showed four deep duodenal ulcers and severe esophagitis. His bilateral basal infiltrates were felt to be due to aspiration pneumonia. He had an IVC filter placed as he cannot be anticoagulated. Postextubation, the patient completed Zosyn for aspiration pneumonia but failed a swallow evaluation, currently on TPN. Patient is being evaluated by a ARU and speech is assessing to see if we can d/c TPN and start diet. Speech therapist recommended modified diet, TPN was discontinued. Unfortunately, patient has failed to thrive, has a very poor appetite and most of the time he is very confused. After discussion with family and according to family wishes patient was transferred to [facility]. Awaited hospice bed. On 03/06/20 family changed decision and revoked SCIENTIFIC AIDE status. His wanted to take him home, she believed patient in family environment pt will recover faster. In the evening on 03/10/25 I updated his Pati and discussed with her the goal of treatment. After discussion, Pati decided that her would benefit from PEG tube placement and feeding. The family wanted to place the feeding tube and feed the patient for next 2 weeks. On 03/10/20 in the evening patient developed hypernatremia. He received IV fluid. During the night patient developed spiking fever with leukocytosis secondary to UTI. IV antibiotics started. On 03/14/20 leukocytosis resolved, surgical team will proceed with PEG tube on 03/16/20 Sepsis Resolved Most likely due to UTI, urine analysis showed pyuria Chest x-ray did not show acute pulmonary infiltrate blood culture negative, urine culture pending. Leukocytosis resolved Vancomycin IV DC, Zosyn IV MRSA screen negative IV fluid Hypernatremia Resolved on 03/14/20 Continue monitor electrolytes Most likely secondary to dehydration patient has a very poor oral intake CMP every 4 hours will continue to monitor phosphorus, magnesium Continue IV fluid Acute metabolic encephalopathy Multifactorial, most likely secondary to Wernicke encephalopathy, recent ischemic stroke There is possibility that this level of mentation is his a new baseline Aspiration pneumonia Resolved Secondary to severe oropharyngeal dysfunction after stroke and alcohol withdrawal Completed course of Zosyn Dysphagia ST follows him, diet was modified. Patient does not have severe oropharyngeal dysfunction and his able to swallow. On 03/10/20 his wanted PEG tube placement. However patient developed sepsis. I started PPN for now Surgical team will place PEG Pulmonary embolism Patient is not anticoagulated due to recent massive GI bleed IVC filter placed Acute Gastrointestinal bleed, resolved. Due to duodenal ulcers and esophagitis Hemoglobin and hematocrit remain stable. Continue PPI Bilateral CVA aspirin on hold due to recent massive GI bleed Acute kidney injury resolved. Chronic obstructive pulmonary disease (COPD). No exacerbation at this time Cachexia Patient has low BMI, low albumin, bitemporal wasting I started Marinol to increase his appetite Started PPN on 03/11/20. We will continue monitoring electrolytes: Magnesium, potassium, phosphorus Depression venlafaxine Electrolytes imbalance Continue checking electrolytes Palliative care encounter SCIENTIFIC AIDE status has been revoked Deconditioning Multifactorial, due to prolonged hospitalization, multiple strokes, multiple comorbidities Patient has a medical condition which requires positioning of the body in the ways not feasible with an ordinary bed. Elevation of the head/upper body less then 30 degrees does not usually require the use of a hospital bed. The patient requires frequent changes in body position and/or has an immediate need for a change in body position PT/OT VS,Camacho, I+O VS, Reyesbone, I+O Laboratory Tests 03/13/20 14:32 03/13/20 18:56 03/13/20 23:01 03/14/20 06:21 Vital Signs Date Time Temp Pulse Resp B/P (MAP) Pulse Ox O2 Delivery O2 Flow Rate FiO2 03/14/20 12:22 82 20 98 Room Air 03/14/20 11:30 97.3 03/14/20 06:00 148/84 (105) I&O- Last 24 Hours up to 6 AM 03/14/20 06:00 Intake Total 3920 ml Output Total 0 ml Balance 3920 ml RODOLFO YUAN DO Mar 14, 2020 13:32
[2020-03-14 14:00] VITALS: BP 155/84
[2020-03-14] MEDS: SODIUM CHLORIDE 0.9% INJ 10 ML SYR IV SCH (17:30)
[2020-03-14] MEDS ORDERED: FAT EMULSION IV 20% 500 ML IV SCH (18:00)
[2020-03-14 22:00] VITALS: BP 151/98
[2020-03-15] MEDS: PIPERACILLIN/TAZOBACTAM SOD 3.375 GM in D5W MINI-BAG PLUS 50 ML IV SCH ×4 (00:06→18:15)
[2020-03-15] MEDS: AMINO AC/ELECTROLYTE/DEX/CALC 1,000 ML IV SCH ×2 (00:06→10:20)
[2020-03-15] MEDS: SODIUM CHLORIDE 0.9% INJ 10 ML SYR IV PRN (01:01)
[2020-03-15 06:00] VITALS: BP 142/87
[2020-03-15] MEDS: HumaLOG INSULIN (NovoLOG) PER UNIT SC SCH ×4 (06:00→18:00)
[2020-03-15 06:03] LABS: BASO % 0.4 % (0.0-1.0); EOS # 0.2 10^3/uL (0.0-0.5); EOS % 2.9 % (0.0-3.0); HEMATOCRIT 27.2 % (42.0-52.0); HEMOGLOBIN 8.8 g/dl (13.5-17.5); LYMPH # 1.3 10^3/uL (1.5-5.0); LYMPH % 16.1 % (24.0-44.0); MEAN CORPUSCULAR HEMOGLOBIN 29.8 pg (27.0-33.0); MEAN CORPUSCULAR HGB CONC 32.4 g/dl (32.0-36.5); MEAN CORPUSCULAR VOLUME 92.2 fl (80.0-96.0); MONO # 0.6 10^3/uL (0.0-0.8); MONO % 7.4 % (0.0-5.0); NEUTROPHILS # 5.8 10^3/uL (1.5-8.5); NEUTROPHILS % 72.4 % (36.0-66.0); PLATELET COUNT, AUTOMATED 149 10^3/uL (150-450); RED BLOOD COUNT 2.95 10^6/uL (4.30-6.10)
[2020-03-15 06:33] LABS: ALBUMIN 1.6 GM/DL (3.2-5.2); ALT/SGPT 8 U/L (12-78); BILIRUBIN,TOTAL 0.5 MG/DL (0.2-1.0); BLOOD UREA NITROGEN 8 MG/DL (7-18); CALCIUM LEVEL 8.3 MG/DL (8.8-10.2); CARBON DIOXIDE LEVEL 22 MEQ/L (21-32); CHLORIDE LEVEL 110 MEQ/L (98-107); CREATININE FOR GFR 0.71 MG/DL (0.70-1.30); GLOMERULAR FILTRATION RATE > 60.0 (>49); GLUCOSE, FASTING 89 MG/DL (70-100); MAGNESIUM LEVEL 1.9 MG/DL (1.8-2.4); PHOSPHORUS LEVEL 3.9 MG/DL (2.5-4.9); POTASSIUM SERUM 3.3 MEQ/L (3.5-5.1); SODIUM LEVEL 140 MEQ/L (136-145); TOTAL PROTEIN 5.9 GM/DL (6.4-8.2)
[2020-03-15] MEDS: SODIUM CHLORIDE 0.9% INJ 10 ML SYR IV SCH ×2 (06:40→18:14)
[2020-03-15] MEDS: DRONABINOL 2.5 MG CAP (MARINOL) PO SCH ×4 (07:30→21:17)
[2020-03-15] MEDS: OMEPRAZOLE 20 MG CAP PO SCH ×2 (09:00→21:17)
[2020-03-15] MEDS: VENLAFAXINE **XR** 37.5 MG CAPSULE PO SCH (09:00)
[2020-03-15] MEDS: MAGNESIUM CHLORIDE 64 MG TABCR (SLO MAG) PO SCH (09:00)
[2020-03-15] MEDS ORDERED: KCL 10MEQ/100ML SWI (KRUN) 10 MEQ in IV 1 EA IV ONE ×2 (09:00→18:15)
[2020-03-15] MEDS: SPIRONOLACTONE 25 MG TAB PO SCH (09:00)
[2020-03-15] MEDS: THIAMINE 100 MG TAB PO SCH (09:00)
[2020-03-15 14:00] VITALS: BP 143/87
--- NOTE | 2020-03-15 16:33 | IPNPDOC ---
Text Note Date of Service The patient was seen on 03/15/20. NOTE Subjective: No any acute events overnight. Very minimal oral intake. Patient follows simple commands. Objective: PHYSICAL EXAMINATION: VITAL SIGNS: Please see below. GENERAL: Cachectic male, not oriented in place CARDIOVASCULAR: RRR, normal S1/2, no Murmur Rub or Gallop appreciated RESPIRATORY: CTA B/L, no diabetes/R/R ABDOMINAL: Soft, nontender, nondistended EXTREMITIES: No edema, intact distal pulses SKIN: No rash or skin breakdown NEUROLOGICAL: No nuchal rigidity, follows simple commands This is a 59-year-old male, -[place], with h/o alcohol abuse, COPD/e mphysema brought in to the ED o 02/08 due to confusion which was felt to be due to alcohol withdrawal/ Wernicke encephalopathy and multiple acute ischemic CVAs noted on MRI done the next day. Started on eliquis for possible embolic strokes. On 02/12 he developed SOB, found to have right subsegmental acute pulmonary embolism, bibasilar infiltrates and COPD exacerbation. He was transitioned to heparin drip and started on Zosyn. On 02/13 he had a Rapid assessment call for acute respiratory failure and patient was urgently intubated for agonal respirations. NG tube placement post intubation showed massive GIB. About 1.2 liters of coffee ground materials were aspirated out. The patient developed hypotension with GI bleed and went into hemorrhagic shock requiring 3 units of RBC transfusion, 2 packs of FFP, 1 pack of platelets and protamine. Emergent Esophagogastroduodenoscopy (EGD) showed four deep duodenal ulcers and severe esophagitis. His bilateral basal infiltrates were felt to be due to aspiration pneumonia. He had an IVC filter placed as he cannot be anticoagulated. Postextubation, the patient completed Zosyn for aspiration pneumonia but failed a swallow evaluation, currently on TPN. Patient is being evaluated by a ARU and speech is assessing to see if we can d/c TPN and start diet. Speech therapist recommended modified diet, TPN was discontinued. Unfortunately, patient has failed to thrive, has a very poor appetite and most of the time he is very confused. After discussion with family and according to family wishes patient was transferred to [facility]. Awaited hospice bed. On 03/06/20 family changed decision and revoked OPERATIONS ARCHITECT status. His wanted to take him home, she believed patient in family environment pt will recover faster. In the evening on 03/10/25 I updated his Pati and discussed with her the goal of treatment. After discussion, Pati decided that her would benefit from PEG tube placement and feeding. The family wanted to place the feeding tube and feed the patient for next 2 weeks. On 03/10/20 in the evening patient developed hypernatremia. He received IV fluid. During the night patient developed spiking fever with leukocytosis secondary to UTI. IV antibiotics started. On 03/14/20 leukocytosis resolved, surgical team will proceed with PEG tube on 03/16/20 Sepsis Resolved Most likely due to UTI, urine analysis showed pyuria Chest x-ray did not show acute pulmonary infiltrate blood culture negative, urine culture pending. Leukocytosis resolved Vancomycin IV DC, continue Zosyn IV MRSA screen negative IV fluid Hypernatremia Resolved on 03/14/20 Continue monitor electrolytes Most likely secondary to dehydration patient has a very poor oral intake CMP every 4 hours will continue to monitor phosphorus, magnesium Continue IV fluid Acute metabolic encephalopathy Multifactorial, most likely secondary to Wernicke encephalopathy, recent ischemic stroke There is possibility that this level of mentation is his a new baseline Aspiration pneumonia Resolved Secondary to severe oropharyngeal dysfunction after stroke and alcohol withdra wal Completed course of Zosyn Dysphagia ST follows him, diet was modified. Patient does not have severe oropharyngeal dysfunction and his able to swallow. On 03/10/20 his wanted PEG tube placement. However patient developed sepsis. I started PPN for now Surgical team will place PEG Pulmonary embolism Patient is not anticoagulated due to recent massive GI bleed IVC filter placed Acute Gastrointestinal bleed, resolved. Due to duodenal ulcers and esophagitis Hemoglobin and hematocrit remain stable. Continue PPI Bilateral CVA aspirin on hold due to recent massive GI bleed Acute kidney injury resolved. Chronic obstructive pulmonary disease (COPD). No exacerbation at this time Cachexia Patient has low BMI, low albumin, bitemporal wasting I started Marinol to increase his appetite Started PPN on 03/11/20. We will continue monitoring electrolytes: Magnesium, potassium, phosphorus Depression venlafaxine Electrolytes imbalance Continue checking electrolytes Palliative care encounter OPERATIONS ARCHITECT status has been revoked Deconditioning Multifactorial, due to prolonged hospitalization, multiple strokes, multiple comorbidities Patient has a medical condition which requires positioning of the body in the ways not feasible with an ordinary bed. Elevation of the head/upper body less then 30 degrees does not usually require the use of a hospital bed. The patient requires frequent changes in body position and/or has an immediate need for a change in body position PT/OT VS,Camacho, I+O VS, Camacho, I+O Laboratory Tests 03/15/20 05:50 Vital Signs Date Time Temp Pulse Resp B/P (MAP) Pulse Ox O2 Delivery O2 Flow Rate FiO2 03/15/20 14:00 97.3 72 17 143/87 (105) 90 Room Air I&O- Last 24 Hours up to 6 AM 03/15/20 06:00 Intake Total 3190 ml Balance 3190 ml RODOLFO YUAN DO Mar 15, 2020 16:33
[2020-03-15 16:41] LABS: BLOOD UREA NITROGEN 9 MG/DL (7-18); CALCIUM LEVEL 8.3 MG/DL (8.8-10.2); CARBON DIOXIDE LEVEL 23 MEQ/L (21-32); CHLORIDE LEVEL 107 MEQ/L (98-107); CREATININE FOR GFR 0.65 MG/DL (0.70-1.30); GLOMERULAR FILTRATION RATE > 60.0 (>49); GLUCOSE, FASTING 83 MG/DL (70-100); POTASSIUM SERUM 3.6 MEQ/L (3.5-5.1); SODIUM LEVEL 138 MEQ/L (136-145)
[2020-03-15] MEDS ORDERED: MULTIVITAMIN -ADULT INJECTION 10 ML, CR/CU/SE/MN/ZN INJ 1 ML in AMINO AC/ELECTROLYTE/DE... IV SCH (18:00)
[2020-03-15] MEDS ORDERED: FAT EMULSION IV 20% 500 ML IV SCH (18:00)
[2020-03-15 19:03] LABS: BLOOD UREA NITROGEN 9 MG/DL (7-18); CARBON DIOXIDE LEVEL 23 MEQ/L (21-32); CHLORIDE LEVEL 107 MEQ/L (98-107); CREATININE FOR GFR 0.68 MG/DL (0.70-1.30); GLOMERULAR FILTRATION RATE > 60.0 (>49); GLUCOSE, FASTING 81 MG/DL (70-100); POTASSIUM SERUM 3.6 MEQ/L (3.5-5.1); SODIUM LEVEL 137 MEQ/L (136-145)
[2020-03-15 22:00] VITALS: BP 139/87
[2020-03-15 22:34] LABS: BLOOD UREA NITROGEN 9 MG/DL (7-18); CALCIUM LEVEL 8.3 MG/DL (8.8-10.2); CARBON DIOXIDE LEVEL 23 MEQ/L (21-32); CHLORIDE LEVEL 108 MEQ/L (98-107); CREATININE FOR GFR 0.67 MG/DL (0.70-1.30); GLOMERULAR FILTRATION RATE > 60.0 (>49); GLUCOSE, FASTING 90 MG/DL (70-100); POTASSIUM SERUM 4.1 MEQ/L (3.5-5.1); SODIUM LEVEL 137 MEQ/L (136-145)
[2020-03-16] MEDS: PIPERACILLIN/TAZOBACTAM SOD 3.375 GM in D5W MINI-BAG PLUS 50 ML IV SCH ×4 (00:25→19:17)
[2020-03-16] MEDS: SODIUM CHLORIDE 0.9% INJ 10 ML SYR IV SCH ×2 (05:44→18:00)
[2020-03-16 06:00] VITALS: BP 140/86
[2020-03-16] MEDS: HumaLOG INSULIN (NovoLOG) PER UNIT SC SCH ×5 (06:37→18:00)
[2020-03-16 06:58] LABS: BASO % 0.1 % (0.0-1.0); EOS # 0.1 10^3/uL (0.0-0.5); EOS % 1.5 % (0.0-3.0); HEMATOCRIT 25.7 % (42.0-52.0); HEMOGLOBIN 8.5 g/dl (13.5-17.5); LYMPH # 1.3 10^3/uL (1.5-5.0); LYMPH % 15.5 % (24.0-44.0); MEAN CORPUSCULAR HEMOGLOBIN 30.4 pg (27.0-33.0); MEAN CORPUSCULAR HGB CONC 33.1 g/dl (32.0-36.5); MEAN CORPUSCULAR VOLUME 91.8 fl (80.0-96.0); MONO # 0.7 10^3/uL (0.0-0.8); MONO % 7.9 % (0.0-5.0); NEUTROPHILS # 6.1 10^3/uL (1.5-8.5); NEUTROPHILS % 74.4 % (36.0-66.0); PLATELET COUNT, AUTOMATED 171 10^3/uL (150-450); WHITE BLOOD COUNT 8.2 10^3/uL (4.0-10.0)
[2020-03-16 07:27] LABS: ALBUMIN 1.7 GM/DL (3.2-5.2); ALT/SGPT 8 U/L (12-78); BILIRUBIN,TOTAL 0.4 MG/DL (0.2-1.0); BLOOD UREA NITROGEN 9 MG/DL (7-18); CALCIUM LEVEL 8.2 MG/DL (8.8-10.2); CARBON DIOXIDE LEVEL 24 MEQ/L (21-32); CHLORIDE LEVEL 107 MEQ/L (98-107); CREATININE FOR GFR 0.62 MG/DL (0.70-1.30); GLOMERULAR FILTRATION RATE > 60.0 (>49); GLUCOSE, FASTING 84 MG/DL (70-100); MAGNESIUM LEVEL 1.7 MG/DL (1.8-2.4); POTASSIUM SERUM 3.6 MEQ/L (3.5-5.1); SODIUM LEVEL 137 MEQ/L (136-145); TOTAL PROTEIN 5.7 GM/DL (6.4-8.2)
[2020-03-16] MEDS: DRONABINOL 2.5 MG CAP (MARINOL) PO SCH ×2 (07:30→12:00)
[2020-03-16] MEDS: THIAMINE 100 MG TAB PO SCH (08:38)
[2020-03-16] MEDS: OMEPRAZOLE 20 MG CAP PO SCH (08:38)
[2020-03-16] MEDS: VENLAFAXINE **XR** 37.5 MG CAPSULE PO SCH (08:38)
[2020-03-16] MEDS: SPIRONOLACTONE 25 MG TAB PO SCH (08:38)
[2020-03-16] MEDS: MAGNESIUM CHLORIDE 64 MG TABCR (SLO MAG) PO SCH (08:38)
[2020-03-16] MEDS ORDERED: BUPIVACAINE HCL 0.25% 30ML VIAL As Ordered ONE (09:37)
[2020-03-16] MEDS ORDERED: fentaNYL 100 MCG/2 ML INJECTION (J3010) As Ordered ONE (09:49)
[2020-03-16] MEDS ORDERED: MIDAZOLAM INJ 2MG/2ML VIAL (J2250 PER 1MG) As Ordered ONE (09:49)
[2020-03-16] MEDS ORDERED: LIDOCAINE 2% 100MG/5ML SDV (FOR ANES.) As Ordered ONE (09:50)
[2020-03-16] MEDS ORDERED: propofoL 200 MG/20 ML VIAL As Ordered ONE (09:50)
[2020-03-16] MEDS ORDERED: ONDANSETRON 4MG/2ML VIAL As Ordered ONE (09:53)
[2020-03-16] MEDS ORDERED: dexameTHASONE 4 MG/ML 1ML VIAL (J1100 PER 1MG) As Ordered ONE (09:53)
[2020-03-16 12:00] VITALS: BP 140/80
[2020-03-16] MEDS ORDERED: LACTATED RINGER'S 500 ML IV ONE (12:15)
[2020-03-16] MEDS ORDERED: fentaNYL 100 MCG/2 ML INJECTION (J3010) IV PRN (12:15)
[2020-03-16] MEDS ORDERED: ONDANSETRON 4MG/2ML VIAL IV PRN (12:15)
[2020-03-16 13:00] VITALS: BP 144/80
[2020-03-16] MEDS: SUCRALFATE SUSP 1GM/10ML UD GT SCH ×2 (13:16→18:33)
--- NOTE | 2020-03-16 13:20 | ROOR ---
Patient Name: Zach Mock Procedure Date: 03/16/2020 10:11 AM Date of : 1960 Age: 59 Gender: Male Note Status: Finalized Procedure: EGD and PEG Tube Placement Indications: Dysphagia Providers: Antony Woods Jr, MD Referring MD: Aleksandr Almaraz Do Requesting Provider: Medicines: Propofol per Anesthesia Complications: No immediate complications. Procedure: Pre-Anesthesia Assessment: - Prior to the procedure, a History and Physical was performed, and patient medications and allergies were reviewed. The patient is competent. The risks and benefits of the procedure and the sedation options and risks were discussed with the patient. All questions were answered and informed consent was obtained. Patient identification and proposed procedure were verified by the physician and the nurse in the pre-procedure area and in the procedure room. Mental Status Examination: alert and oriented. Airway Examination: normal oropharyngeal airway and neck mobility. Respiratory Examination: clear to auscultation. CV Examination: normal. ASA Grade Assessment: II - A patient with mild systemic disease. After reviewing the risks and benefits, the patient was deemed in satisfactory condition to undergo the procedure. The anesthesia plan was to use moderate sedation / analgesia (conscious sedation). Immediately prior to administration of medications, the patient was re-assessed for adequacy to receive sedatives. The heart rate, respiratory rate, oxygen saturations, blood pressure, adequacy of pulmonary ventilation, and response to care were monitored throughout the procedure. The physical status of the patient was re-assessed after the procedure. The Endoscope was introduced through the mouth, and advanced to the second part of duodenum. The upper GI endoscopy was accomplished without difficulty. The patient tolerated the procedure well. Findings: The upper third of the esophagus, middle third of the esophagus and lower third of the esophagus were normal. LA Grade A (one or more mucosal breaks less than 5 mm, not extending between tops of 2 mucosal folds) esophagitis with no bleeding was found at the gastroesophageal junction. The cardia, gastric fundus, gastric body, gastric antrum, prepyloric region of the stomach and pylorus were normal. Four non-bleeding cratered duodenal ulcers with no stigmata of bleeding were found in the duodenal bulb and in the first portion of the duodenum. The gastric antrum was normal. The patient was placed in the supine position for PEG placement. The stomach was insufflated to appose gastric and abdominal dsouza. A site was located in the antrum of the stomach with excellent transillumination and manual external pressure for placement. The abdominal wall was marked and prepped in a sterile manner. The area was anesthetized with 4 mL of 1% lidocaine. The trocar needle was introduced through the abdominal wall and into the stomach under direct endoscopic view. A snare was introduced through the endoscope and opened in the gastric lumen. The guide wire was passed through the trocar and into the open snare. The snare was closed around the guide wire. The endoscope and snare were removed, pulling the wire out through the mouth. A skin incision was made at the site of needle insertion. The 20 Fr Bard gastrostomy tube was lubricated. The G-tube was passed over the guide wire through the mouth, and into the stomach. The trocar needle was removed, and the gastrostomy tube was pulled out from the stomach through the skin. The guide wire was removed, and the external bumper attached to the gastrostomy tube. The feeding tube was then cut to an appropriate length. The final position of the gastrostomy tube was confirmed by relook endoscopy, and skin marking noted to be 2 cm at the external bumper. The final tension and compression of the abdominal wall by the PEG tube and external bumper were checked and revealed that the bumper was loose and lightly touching the skin and that the PEG balloon was moderately tight and mildly compressing the stomach. The feeding tube was capped, and the tube site was cleaned and dressed. Impression: - Normal upper third of esophagus, middle third of esophagus and lower third of esophagus. - LA Grade A reflux esophagitis. - Normal cardia, gastric fundus, gastric body, antrum, prepyloric region of the stomach and pylorus. - Non-bleeding duodenal ulcers with no stigmata of bleeding. - Normal antrum. - A PEG placement was successfully completed. - No specimens collected. Recommendation: - [facility]. Antony Woods MD Antony Woods Jr, MD 03/16/2020 1:19:28 PM Electronically signed by Antony Woods Jr, MD Number of Addenda: 0 Note Initiated On: 03/16/2020 10:11 AM Estimated Blood Loss: Estimated blood loss: none.
[2020-03-16 14:00] VITALS: BP 136/80
[2020-03-16] MEDS: SODIUM CHLORIDE 0.9% INJ 10 ML SYR IV PRN (15:13)
[2020-03-16] MEDS ORDERED: HYOSCYAMINE SULFATE 0.125 MG SUBL TABLET GT PRN (15:30)
[2020-03-16] MEDS ORDERED: GLUCOSE 4GM CHEW TABLET GT PRN (15:30)
--- NOTE | 2020-03-16 16:19 | IPNPDOC ---
Text Note Date of Service The patient was seen on 03/16/20. NOTE Subjective: No any acute events overnight. PEG placed today patient tolerated procedure well. Objective: PHYSICAL EXAMINATION: VITAL SIGNS: Please see below. GENERAL: Cachectic male, not oriented in place CARDIOVASCULAR: RRR, normal S1/2, no Murmur Rub or Gallop appreciated RESPIRATORY: CTA B/L, no diabetes/R/R ABDOMINAL: Soft, nontender, nondistended EXTREMITIES: No edema, intact distal pulses SKIN: No rash or skin breakdown NEUROLOGICAL: No nuchal rigidity, follows simple commands This is a 59-year-old male, -[place], with h/o alcohol abuse, COPD/emphysema brought in to the ED o 02/08 due to confusion which was felt to be due to alcohol withdrawal/ Wernicke encephalopathy and multiple acute ischemic CVAs noted on MRI done the next day. Started on eliquis for possible embolic strokes. On 02/12 he developed SOB, found to have right subsegmental acute pulmonary embolism, bibasilar infiltrates and COPD exacerbation. He was transitioned to heparin drip and started on Zosyn. On 02/13 he had a Rapid assessment call for acute respiratory failure and patient was urgently intubated for agonal respirations. NG tube placement post intubation showed massive GIB. About 1.2 liters of coffee ground materials were aspirated out. The patient developed hypotension with GI bleed and went into hemorrhagic shock requiring 3 units of RBC transfusion, 2 packs of FFP, 1 pack of platelets and protamine. Emergent Esophagogastroduodenoscopy (EGD) showed four deep duodenal ulcers and severe esophagitis. His bilateral basal infiltrates were felt to be due to asp iration pneumonia. He had an IVC filter placed as he cannot be anticoagulated. Postextubation, the patient completed Zosyn for aspiration pneumonia but failed a swallow evaluation, currently on TPN. Patient is being evaluated by a ARU and speech is assessing to see if we can d/c TPN and start diet. Speech therapist recommended modified diet, TPN was discontinued. Unfortunately, patient has failed to thrive, has a very poor appetite and most of the time he is very confused. After discussion with family and according to family wishes patient was transferred to [facility]. Awaited hospice bed. On 03/06/20 family changed decision and revoked COOK ROAST status. His wanted to take him home, she believed patient in family environment pt will recover faster. In the evening on 03/10/25 I updated his Pati and discussed with her the goal of treatment. After discussion, Pati decided that her would benefit from PEG tube placement and feeding. The family wanted to place the feeding tube and feed the patient for next 2 weeks. On 03/10/20 in the evening patient developed hypernatremia. He received IV fluid. During the night patient developed spiking fever with leukocytosis secondary to UTI. IV antibiotics started. On 03/14/20 leukocytosis resolved, surgical team proceeded with PEG tube on 03/16/20. Patient will be discharged to rehabilitation after stabilization Sepsis Resolved Most likely due to UTI, urine analysis showed pyuria Chest x-ray did not show acute pulmonary infiltrate blood culture negative, urine culture pending. Leukocytosis resolved Vancomycin IV DC, continue Zosyn IV MRSA screen negative IV fluid Hypernatremia Resolved on 03/14/20 Continue monitor electrolytes Most likely secondary to dehydration patient has a very poor oral intake CMP every 4 hours will continue to monitor phosphorus, magnesium Continue IV fluid Acute metabolic encephalopathy Multifactorial, most likely secondary to Wernicke encephalopathy, recent ischemic stroke There is possibility that this level of mentation is his a new baseline Aspiration pneumonia Resolved Secondary to severe oropharyngeal dysfunction after stroke and alcohol withdrawal Completed course of Zosyn Dysphagia ST follows him, diet was modified. Patient does not have severe oropharyngeal dysfunction and his able to swallow. On 03/10/20 his wanted PEG tube placement. However patient developed sepsis. I started PPN for now Surgical team placed PEG on 03/16/20 Pulmonary embolism Patient is not anticoagulated due to recent massive GI bleed IVC filter placed Acute Gastrointestinal bleed, resolved. Due to duodenal ulcers and esophagitis Hemoglobin and hematocrit remain stable. Continue PPI Bilateral CVA aspirin on hold due to recent massive GI bleed Acute kidney injury resolved. Chronic obstructive pulmonary disease (COPD). No exacerbation at this time Cachexia Patient has low BMI, low albumin, bitemporal wasting I started Marinol to increase his appetite We will continue monitoring electrolytes: Magnesium, potassium, phosphorus We will start tube feeding on 03/17/20 Depression venlafaxine Electrolytes imbalance Continue checking electrolytes Palliative care encounter COOK ROAST status has been revoked Deconditioning Multifactorial, due to prolonged hospitalization, multiple strokes, multiple comorbidities Patient has a medical condition which requires positioning of the body in the w ays not feasible with an ordinary bed. Elevation of the head/upper body less then 30 degrees does not usually require the use of a hospital bed. The patient requires frequent changes in body position and/or has an immediate need for a change in body position PT/OT VS,Fishbone, I+O VS, Fishbone, I+O Laboratory Tests 03/15/20 18:23 03/15/20 22:02 03/16/20 06:45 Vital Signs Date Time Temp Pulse Resp B/P (MAP) Pulse Ox O2 Delivery O2 Flow Rate FiO2 03/16/20 14:00 97.6 94 18 136/80 (98) 94 Room Air 03/16/20 11:55 10 I&O- Last 24 Hours up to 6 AM 03/16/20 06:00 Intake Total 2870 ml Output Total 0 ml Balance 2870 ml RODOLFO YUAN DO Mar 16, 2020 16:19
[2020-03-16] MEDS ORDERED: KCL 10MEQ/100ML SWI (KRUN) 10 MEQ in IV 1 EA IV ONE (17:00)
[2020-03-16] MEDS ORDERED: FAT EMULSION IV 20% 500 ML IV SCH (18:00)
[2020-03-16] MEDS ORDERED: AMINO AC/ELECTROLYTE/DEX/CALC 2,000 ML IV SCH (18:00)
[2020-03-16 22:00] VITALS: BP 130/79
[2020-03-16] MEDS: VENLAFAXINE 25 MG TAB GT SCH (22:13)
[2020-03-17] MEDS: SUCRALFATE SUSP 1GM/10ML UD GT SCH ×4 (00:14→17:00)
[2020-03-17] MEDS: HumaLOG INSULIN (NovoLOG) PER UNIT SC SCH ×5 (00:15→23:42)
[2020-03-17] MEDS: SODIUM CHLORIDE 0.9% INJ 10 ML SYR IV SCH ×2 (00:16→17:01)
[2020-03-17] MEDS: PIPERACILLIN/TAZOBACTAM SOD 3.375 GM in D5W MINI-BAG PLUS 50 ML IV SCH ×4 (00:16→17:00)
[2020-03-17 02:00] VITALS: BP 136/74
[2020-03-17] MEDS: SODIUM CHLORIDE 0.9% INJ 10 ML SYR IV PRN (05:36)
[2020-03-17 06:00] VITALS: BP 129/54
[2020-03-17 08:17] LABS: BASO % 0.1 % (0.0-1.0); EOS # 0.1 10^3/uL (0.0-0.5); EOS % 1.5 % (0.0-3.0); HEMATOCRIT 24.6 % (42.0-52.0); LYMPH # 1.1 10^3/uL (1.5-5.0); LYMPH % 15.4 % (24.0-44.0); MEAN CORPUSCULAR HEMOGLOBIN 29.7 pg (27.0-33.0); MEAN CORPUSCULAR HGB CONC 32.5 g/dl (32.0-36.5); MEAN CORPUSCULAR VOLUME 91.4 fl (80.0-96.0); MONO # 0.5 10^3/uL (0.0-0.8); MONO % 7.2 % (0.0-5.0); NEUTROPHILS # 5.6 10^3/uL (1.5-8.5); PLATELET COUNT, AUTOMATED 198 10^3/uL (150-450); RED BLOOD COUNT 2.69 10^6/uL (4.30-6.10); WHITE BLOOD COUNT 7.4 10^3/uL (4.0-10.0)
[2020-03-17 08:46] LABS: ALBUMIN 1.7 GM/DL (3.2-5.2); ALT/SGPT 7 U/L (12-78); BILIRUBIN,TOTAL 0.4 MG/DL (0.2-1.0); BLOOD UREA NITROGEN 11 MG/DL (7-18); CALCIUM LEVEL 8.1 MG/DL (8.8-10.2); CARBON DIOXIDE LEVEL 31 MEQ/L (21-32); CHLORIDE LEVEL 102 MEQ/L (98-107); CREATININE FOR GFR 0.58 MG/DL (0.70-1.30); GLOMERULAR FILTRATION RATE > 60.0 (>49); GLUCOSE, FASTING 100 MG/DL (70-100); MAGNESIUM LEVEL 1.8 MG/DL (1.8-2.4); PHOSPHORUS LEVEL 3.1 MG/DL (2.5-4.9); POTASSIUM SERUM 3.1 MEQ/L (3.5-5.1); SODIUM LEVEL 140 MEQ/L (136-145); TOTAL PROTEIN 5.6 GM/DL (6.4-8.2)
[2020-03-17] MEDS: ACETAMINOPHEN TAB 650MG DOSE (2X325MG) GT PRN ×2 (11:22→17:00)
[2020-03-17] MEDS: MAGNESIUM OXIDE 400 MG TAB (MAG-OX) GT SCH (11:22)
[2020-03-17] MEDS: LANSOPRAZOLE SUSPENSION 30 MG/10 ML ORAL SYRINGE (FIRST-LANSOPRAZOLE) GT SCH (11:22)
[2020-03-17] MEDS: SPIRONOLACTONE 25 MG TAB GT SCH (11:25)
[2020-03-17] MEDS: VENLAFAXINE 25 MG TAB GT SCH ×2 (11:25→20:23)
[2020-03-17] MEDS: THIAMINE 100 MG TAB GT SCH (11:25)
[2020-03-17 14:00] VITALS: BP 116/66
[2020-03-17] MEDS: POTASSIUM CHLORIDE 10% LIQ 20 MEQ/15 ML UDC PO SCH ×2 (15:37→19:42)
[2020-03-17 22:00] VITALS: BP 111/82
[2020-03-18] VITALS (17 sets, daily range): BP systolic 108–170; BP diastolic 65–96
[2020-03-18] MEDS: ACETAMINOPHEN TAB 650MG DOSE (2X325MG) GT PRN (00:02)
[2020-03-18] MEDS: SODIUM CHLORIDE 0.9% INJ 10 ML SYR IV PRN (01:26)
[2020-03-18] MEDS: PIPERACILLIN/TAZOBACTAM SOD 3.375 GM in D5W MINI-BAG PLUS 50 ML IV SCH ×5 (05:12→18:54)
[2020-03-18] MEDS: SUCRALFATE SUSP 1GM/10ML UD GT SCH ×4 (05:12→18:54)
[2020-03-18] MEDS: SODIUM CHLORIDE 0.9% INJ 10 ML SYR IV SCH ×2 (06:19→18:00)
[2020-03-18] MEDS: HumaLOG INSULIN (NovoLOG) PER UNIT SC SCH ×3 (06:40→18:00)
[2020-03-18 06:54] LABS: HEMATOCRIT 23.5 % (42.0-52.0); HEMOGLOBIN 7.6 g/dl (13.5-17.5); MEAN CORPUSCULAR HEMOGLOBIN 30.2 pg (27.0-33.0); MEAN CORPUSCULAR HGB CONC 32.3 g/dl (32.0-36.5); MEAN CORPUSCULAR VOLUME 93.3 fl (80.0-96.0); PLATELET COUNT, AUTOMATED 240 10^3/uL (150-450); RED BLOOD COUNT 2.52 10^6/uL (4.30-6.10); WHITE BLOOD COUNT 6.1 10^3/uL (4.0-10.0)
[2020-03-18 07:19] LABS: ALBUMIN 1.7 GM/DL (3.2-5.2); ALT/SGPT 7 U/L (12-78); BILIRUBIN,TOTAL 0.4 MG/DL (0.2-1.0); BLOOD UREA NITROGEN 9 MG/DL (7-18); CALCIUM LEVEL 8.3 MG/DL (8.8-10.2); CARBON DIOXIDE LEVEL 28 MEQ/L (21-32); CHLORIDE LEVEL 105 MEQ/L (98-107); CREATININE FOR GFR 0.61 MG/DL (0.70-1.30); GLOMERULAR FILTRATION RATE > 60.0 (>49); GLUCOSE, FASTING 94 MG/DL (70-100); MAGNESIUM LEVEL 1.5 MG/DL (1.8-2.4); PHOSPHORUS LEVEL 2.2 MG/DL (2.5-4.9); POTASSIUM SERUM 3.7 MEQ/L (3.5-5.1); SODIUM LEVEL 137 MEQ/L (136-145); TOTAL PROTEIN 5.8 GM/DL (6.4-8.2)
[2020-03-18 07:28] LABS: ATYPICAL LYMPH 1 % (0-5); EOSINOPHILS 2 % (0-3); LYMPHOCYTES 24 % (16-44); MONOCYTES 2 % (0-5); MYELOCYTES 1 % (0-0); NEUTROPHILS 70 % (28-66); PLATELET ESTIMATE NORMAL (NORMAL)
[2020-03-18 07:29] LABS: ANISOCYTOSIS 1+
[2020-03-18] MEDS: LANSOPRAZOLE SUSPENSION 30 MG/10 ML ORAL SYRINGE (FIRST-LANSOPRAZOLE) GT SCH (10:06)
[2020-03-18] MEDS: MAGNESIUM OXIDE 400 MG TAB (MAG-OX) GT SCH (10:06)
[2020-03-18] MEDS: THIAMINE 100 MG TAB GT SCH (10:06)
[2020-03-18] MEDS: VENLAFAXINE 25 MG TAB GT SCH ×2 (10:06→20:44)
[2020-03-18] MEDS: SPIRONOLACTONE 25 MG TAB GT SCH (10:06)
[2020-03-18] MEDS: MAG SULF 1GM/100ML (MAG RUN) 1 GM in IV 1 EA IV SCH ×2 (10:07→12:22)
--- NOTE | 2020-03-18 10:59 | IPN ---
DATE: 03/17/2020 This morning, patient complains of generalized weakness. No chest pain, pressure, tightness, shortness of breath, palpitations, lightheadedness, or dizziness. Feeding tube was placed, to be started today. Breast Splitter has been consulted. Afebrile. No chills. No pother issues per nursing. Temperature is 98, pulse 89, respiratory 16, blood pressure 116/66, 94% on room air. Generally, awake, alert, oriented to himself only. Patient is cooperative. Cachectic male with no respiratory distress or conversational dyspnea. Lungs are clear to auscultation. No wheezing, rales, or rhonchi. Heart: S1, S2, sinus rhythm. No murmurs, rubs, or gallops. Feeding tube in place without erythema, tenderness, or purulence. Extremities: No cyanosis, clubbing, pitting edema. Cachectic appearing. LABORATORY DATA: White count 7.4, hemoglobin 8, hematocrit 24, platelet count 198. Sodium 140, potassium 3.1, chloride 102, bicarbonate 31, BUN 11, creatinine 0.58, glucose of 100. Peripherally inserted central catheter (PICC) line placed 03/14/2020. ASSESSMENT AND PLAN: This is a 59-year-old male with a history of brought in due to confusion. Was found to have CVA, pulmonary embolism (PE), hypoxic respiratory failure, hemorrhagic shock with gastrointestinal (GI) bleed, requiring intubation. Esophagogastroduodenoscopy (EGD) showed four deep duodenal ulcers and severe esophagitis. Placed on octreotide, Protonix drip. Kept nothing by mouth with nasogastric (NG) tube and intravenous (IV) fluids. Post extubation, patient was found to have aspiration pneumonia. Treated with IV Zosyn. Failed swallow evaluation and was placed on total parenteral nutrition (TPN) via central line. Patient subsequently underwent feeding tube placement due to persistent dysphagia and aspiration. Currently on tube feedings. CURRENT ISSUES ARE FOLLOWS: 1. Aspiration pneumonia. Resolved. Secondary to stroke and alcohol withdrawal. Completed Zosyn. 2. Urinary tract infection (UTI). Resolved status post Zosyn and vancomycin. Methicillin-resistant Staphylococcus aureus (MRSA) screen was negative. 3. Recurrent aspiration. Status post feeding tube on 03/16/2020. Breast Splitter has been consulted. Currently on feeding tube, to be tried today and advance slowly. 4. Pulmonary embolism. Inferior vena cava (IVC) filter placed. Could not be anticoagulated due to GI bleed with duodenal ulcers. 5. Duodenal ulcers and esophagitis. Status post octreotide, proton pump inhibitor (PPI) with acute blood loss anemia secondary to GI bleed. 6. Acute blood loss anemia due to gastrointestinal bleed. Required red blood cell (RBC) transfusion due to duodenal ulcers, esophagitis. On PPI. 7. Bilateral CVA. Aspirin has been held due to recent GI bleed requiring RBC transfusion. 8. Chronic obstructive pulmonary disease (COPD). No exacerbation. 9. Pulmonary cachexia. Currently on Marinol. Monitoring electrolytes. 10. Electrolyte abnormalities with low potassium. Has been repleted. 11. Deconditioning and protein-calorie malnutrition with cachexia. Body mass index (BMI) of 16.9. Slow recovery. Will need care home placement or acute rehabilitation once medically stable. MTDD
[2020-03-18 11:33] LABS: HEMATOCRIT 24.3 % (42.0-52.0); HEMOGLOBIN 7.7 g/dl (13.5-17.5)
--- NOTE | 2020-03-18 16:48 | IPN ---
DATE: 03/18/2020 The patient is disoriented this morning, awake, alert, oriented to his name only. He is cooperative but required mittens overnight. The patient is not belligerent or aggressive. He says everybody here in this room is okay but there is no one in the room at the time. He otherwise denies any worsening shortness of breath. Tube feeding were started yesterday. He has had no nausea or vomiting. The patient has not been out of bed this morning yet. He is disoriented to where he is and the date. Temperature 97.5, pulse 82, respiratory rate 18, blood pressure 108/65, 99% on room air. Generally, the patient is disoriented to place and time, is only awake, alert, oriented to himself. He has no jugular venous distention (JVD) or thyromegaly. Feeding tube in place. No erythema or tenderness. Abdominal sounds are normal times four quadrants. No rebound or guarding. Lungs are clear to auscultation. No wheezing or rales. Heart: S1, S2, sinus rhythm with no episodes of tachycardia. No murmurs or rubs are noted. Extremities: No clubbing, cyanosis, or any pitting edema. Laboratory data, imaging studies, microbiology have all been reviewed. ASSESSMENT AND PLAN: This is a 59-year-old -Amer[place] male brought in initially due to confusion, possibly encephalopathy from alcohol and withdrawal, was found to have multiple acute ischemic cerebral vascular accidents (CVAs) on MRI, started on Eliquis for embolic stroke but developed shortness of breath and found to have an acute pulmonary embolism, bilateral infiltrates, and chronic obstructive pulmonary disease (COPD) exacerbation. After starting on heparin drip and Zosyn, rapid assessment team was called due to worsening respiratory failure and agonal respirations requiring mechanical intubation. When nasogastric (NG) tube was placed, the patient was found to have a massive gastrointestinal (GI) bleed of 1.2 liters of coffee-ground material which was aspirated, developed hypotension and hemorrhagic shock requiring three units of red blood cell (RBC) transfusion, two fresh frozen plasma (FFP), and one platelets and protamine. Emergent esophagogastroduodenoscopy (EGD) showed four deep duodenal ulcers, severe esophagitis. The patient had aspiration pneumonia. He was given intravenous antibiotics. Inferior vena cava (IVC) filter was placed as he could not be anticoagulated. The patient completed 10 days of Zosyn but failed swallow evaluation and was on total parenteral nutrition (TPN). Speech therapist recommended modified diet and TPN was discontinued but the patient had failure to thrive and was confused. 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 wanted to take him home but reversed her decision and opted for feeding tube placement, and therefore feeding tube was placed by Dr. Woods on 03/16/2020 and was started on tube feedings on 03/17/2020. CURRENT ISSUES: 1. Aspiration pneumonia. Completed 10 days of Zosyn, currently stable. No fever. No white count. 2. Urinary tract infection (UTI). He had pyuria, resolved with IV vancomycin and Zosyn. Blood cultures are negative. Urine culture unremarkable. Leukocytosis resolved. Methicillin-resistant Staphylococcus aureus (MRSA) screen was negative. 3. Hypernatremia and dehydration due to decreased oral intake from cerebrovascular accident (CVA), pneumonia, gastrointestinal (GI) bleed. The patient is improved, back to baseline. 4. Acute metabolic encephalopathy secondary to ischemic CVA, aspiration pneumonia, pulmonary embolism (PE) and chronic debility. Still not improved. Can not anticoagulate due to recent GI bleed. 5. GI bleed due to four deep duodenal ulcers and severe esophagitis. Currently nothing by mouth status. Feeding tube has been placed. Repeat hemoglobin and hematocrit today due to low hemoglobin and transfuse if needed. Currently on Carafate and proton pump inhibitor (PPI). May need to evaluate if the patient is still actively bleeding with serial hemoglobin and hematocrit. 6. Chronic dysphagia secondary to CVA. Feeding tube was placed. Currently on feeding tube. Nutrition consulted. 7. PE. Can not be anticoagulated due to massive GI bleed. Inferior vena cava (IVC) filter has been placed. 8. Acute GI bleed due to duodenal ulcers. The patient currently has a low hemoglobin and concent given by his to transfuse rbc 2 units today. recheck stool for blood, change to protonix iv gtt if recurrent bleed. We will recheck. Currently on proton pump inhibitor (PPI) and Carafate. 9. Chronic obstructive pulmonary disease (COPD). No exacerbation. 10. Cachexia, on tube feedings. Nutrition is consulted. 11. Depression, on venlafaxine. 12. Electrolyte abnormalities. Monitoring with serial metabolic panel, magnesium. 13. Code status. The patient is currently DO NOT RESUSCITATE (DNR)/DO NOT INTUBATE (DNI) but with active treatment. No comfort measures at this time as has reversed this. The patient will need placement once medically stable and no other signs of bleeding. MTDD
[2020-03-19] MEDS: SUCRALFATE SUSP 1GM/10ML UD GT SCH ×4 (00:18→18:32)
[2020-03-19] MEDS: ACETAMINOPHEN TAB 650MG DOSE (2X325MG) GT PRN (00:18)
[2020-03-19] MEDS: PIPERACILLIN/TAZOBACTAM SOD 3.375 GM in D5W MINI-BAG PLUS 50 ML IV SCH ×4 (00:18→18:32)
[2020-03-19 06:00] VITALS: BP 146/97
[2020-03-19] MEDS: HumaLOG INSULIN (NovoLOG) PER UNIT SC SCH ×4 (06:00→18:00)
[2020-03-19] MEDS: SODIUM CHLORIDE 0.9% INJ 10 ML SYR IV SCH ×2 (06:39→18:00)
[2020-03-19 07:40] LABS: BASO % 0.3 % (0.0-1.0); EOS # 0.2 10^3/uL (0.0-0.5); EOS % 2.7 % (0.0-3.0); LYMPH # 1.2 10^3/uL (1.5-5.0); LYMPH % 17.7 % (24.0-44.0); MEAN CORPUSCULAR VOLUME 90.9 fl (80.0-96.0); MONO # 0.8 10^3/uL (0.0-0.8); MONO % 11.4 % (0.0-5.0); NEUTROPHILS # 4.7 10^3/uL (1.5-8.5); NEUTROPHILS % 66.8 % (36.0-66.0); PLATELET COUNT, AUTOMATED 288 10^3/uL (150-450); RED BLOOD COUNT 3.63 10^6/uL (4.30-6.10)
[2020-03-19 07:56] LABS: HEMOGLOBIN 10.9 g/dl (13.5-17.5)
[2020-03-19 07:59] LABS: ALBUMIN 1.9 GM/DL (3.2-5.2); ALT/SGPT 7 U/L (12-78); BILIRUBIN,TOTAL 0.6 MG/DL (0.2-1.0); BLOOD UREA NITROGEN 7 MG/DL (7-18); CALCIUM LEVEL 8.3 MG/DL (8.8-10.2); CARBON DIOXIDE LEVEL 29 MEQ/L (21-32); CHLORIDE LEVEL 104 MEQ/L (98-107); GLOMERULAR FILTRATION RATE > 60.0 (>49); GLUCOSE, FASTING 89 MG/DL (70-100); MAGNESIUM LEVEL 2.1 MG/DL (1.8-2.4); PHOSPHORUS LEVEL 3.3 MG/DL (2.5-4.9); SODIUM LEVEL 139 MEQ/L (136-145); TOTAL PROTEIN 5.8 GM/DL (6.4-8.2)
[2020-03-19] MEDS ORDERED: PANTOPRAZOLE 40MG VIAL (C9113 PER 1) IV SCH (09:00)
[2020-03-19] MEDS: THIAMINE 100 MG TAB GT SCH (09:27)
[2020-03-19] MEDS: MAGNESIUM OXIDE 400 MG TAB (MAG-OX) GT SCH (09:28)
[2020-03-19] MEDS: SPIRONOLACTONE 25 MG TAB GT SCH (09:28)
[2020-03-19] MEDS: VENLAFAXINE 25 MG TAB GT SCH ×2 (09:28→20:22)
[2020-03-19] MEDS: PANTOPRAZOLE SODIUM 40 MG in D5W 50 ML IV SCH ×2 (15:25→20:33)
--- NOTE | 2020-03-19 17:27 | IPNPDOC ---
Date Seen The patient was seen on 03/19/20. Progress Note unable to reach Mrs. Mock at [phone] and [phone] unable to leave a message as her mailbox is full. plan: monitor h&h protonix iv gtt , continue carafate. may need octreotide iv gtt if significant bleed occurs. if decreased h&h w serial monitoring, hold tube feeds and consult gi. may need to stabilize any active bleed. VS, I&O, 24H, Fishbone Vital Signs/I&O Vital Signs Date Time Temp Pulse Resp B/P (MAP) Pulse Ox O2 Delivery O2 Flow Rate FiO2 03/19/20 14:00 97.3 84 21 92 Room Air 03/19/20 06:00 146/97 (113) 03/16/20 11:55 10 I&O- Last 24 Hours up to 6 AM 03/19/20 06:00 Intake Total 4090 ml Balance 4090 ml Laboratory Data 24H LABS Laboratory Tests 2 03/18/20 17:48: Bedside Glucose (Misc Panel) 86 03/19/20 00:02: Bedside Glucose (Misc Panel) 95 03/19/20 06:33: Bedside Glucose (Misc Panel) 79L 03/19/20 07:17: Immature Granulocyte % (Auto) 1.1, Neutrophils (%) (Auto) 66.8H, Lymphocytes (%) (Auto) 17.7L, Monocytes (%) (Auto) 11.4H, Eosinophils (%) (Auto) 2.7, Basophils (%) (Auto) 0.3, Neutrophils # (Auto) 4.7, Lymphocytes # (Auto) 1.2L, Monocytes # (Auto) 0.8, Eosinophils # (Auto) 0.2, Basophils # (Auto) 0.0, Nucleated Red Blood Cells % (auto) 0.0, Anion Gap 6L, Glomerular Filtration Rate > 60.0, Calcium Level 8.3L, Phosphorus Level 3.3#, Magnesium Level 2.1, Total Bilirubin 0.6, Aspartate Amino Transf (AST/SGOT) 16, Alanine Aminotransferase (ALT/SGPT) 7L, Alkaline Phosphatase 100, Total Protein 5.8L, Albumin 1.9L, Albumin/Globulin Ratio 0.49L 03/19/20 12:46: Bedside Glucose (Misc Panel) 82 CBC/BMP Laboratory Tests 03/19/20 07:17 Microbiology Microbiology 03/11/20 Urine Culture - Final, Complete Yeast Like Organism 03/10/20 Blood Culture - Final, Complete NO GROWTH AFTER 5 DAYS 03/10/20 Blood Culture - Final, Complete NO GROWTH AFTER 5 DAYS RONAL LINN MD March 19, 2020 17:25
[2020-03-19] MEDS: SODIUM CHLORIDE 0.9% INJ 10 ML SYR IV PRN (20:32)
[2020-03-20] MEDS: PIPERACILLIN/TAZOBACTAM SOD 3.375 GM in D5W MINI-BAG PLUS 50 ML IV SCH ×5 (00:24→23:50)
[2020-03-20] MEDS: SUCRALFATE SUSP 1GM/10ML UD GT SCH ×5 (00:24→23:50)
[2020-03-20] MEDS: SODIUM CHLORIDE 0.9% INJ 10 ML SYR IV PRN (01:42)
[2020-03-20] MEDS: PANTOPRAZOLE SODIUM 40 MG in D5W 50 ML IV SCH ×5 (01:42→20:32)
[2020-03-20 06:00] VITALS: BP 135/83
[2020-03-20] MEDS: SODIUM CHLORIDE 0.9% INJ 10 ML SYR IV SCH ×2 (06:38→17:06)
[2020-03-20 07:48] LABS: ALBUMIN 1.9 GM/DL (3.2-5.2); ALT/SGPT 8 U/L (12-78); BILIRUBIN,TOTAL 0.6 MG/DL (0.2-1.0); BLOOD UREA NITROGEN 7 MG/DL (7-18); CARBON DIOXIDE LEVEL 26 MEQ/L (21-32); CHLORIDE LEVEL 101 MEQ/L (98-107); CREATININE FOR GFR 0.56 MG/DL (0.70-1.30); GLOMERULAR FILTRATION RATE > 60.0 (>49); GLUCOSE, FASTING 89 MG/DL (70-100); PHOSPHORUS LEVEL 3.7 MG/DL (2.5-4.9); POTASSIUM SERUM 3.9 MEQ/L (3.5-5.1); SODIUM LEVEL 134 MEQ/L (136-145); TOTAL PROTEIN 6.7 GM/DL (6.4-8.2)
[2020-03-20] MEDS: SPIRONOLACTONE 25 MG TAB GT SCH (09:17)
[2020-03-20] MEDS: MAGNESIUM OXIDE 400 MG TAB (MAG-OX) GT SCH (09:17)
[2020-03-20] MEDS: THIAMINE 100 MG TAB GT SCH (09:18)
[2020-03-20] MEDS: VENLAFAXINE 25 MG TAB GT SCH ×2 (09:18→20:32)
[2020-03-20 14:00] VITALS: BP 136/84
[2020-03-20 15:08] LABS: HEMATOCRIT 34.5 % (42.0-52.0); HEMOGLOBIN 11.3 g/dl (13.5-17.5); MEAN CORPUSCULAR HEMOGLOBIN 29.6 pg (27.0-33.0); MEAN CORPUSCULAR HGB CONC 32.8 g/dl (32.0-36.5); MEAN CORPUSCULAR VOLUME 90.3 fl (80.0-96.0); PLATELET COUNT, AUTOMATED 299 10^3/uL (150-450); RED BLOOD COUNT 3.82 10^6/uL (4.30-6.10); WHITE BLOOD COUNT 5.4 10^3/uL (4.0-10.0)
--- NOTE | 2020-03-20 15:11 | IPN ---
DATE OF SERVICE: 03/19/2020 Patient remains confused, disoriented this morning. He is cooperative but is requiring bilateral mittens. Patient has been anemic yesterday, was started on intravenous (IV) Protonix twice a day alive and well blood transfusion given 2 units of red blood cells (RBCs). Patient had increase in hemoglobin from 7.6 to 7.9, hematocrit of 33, with no overt gastrointestinal (GI) bleed. Patient does known history of duodenal ulcerations times four from previous esophagogastroduodenoscopy (EGD) with massive transfusion protocol. At this time, patient is off anticoagulation due to active bleeding. Hemoglobin/hematocrit (H/H) is monitored. Vitals: Temperature 97.2, pulse 81, respiratory rate 18, blood pressure 146/97, 93% on room air. Generally, patient is awake, alert oriented to himself only. He is cooperative but confused and disoriented. Lungs are clear to auscultation. No wheezing or rales. Heart: S1, S2, sinus rhythm. Abdomen is soft, nontender, nontender. Feeding tube in place. No erythema, tenderness. Extremities: No cyanosis, clubbing or pitting edema. White count 7, hemoglobin 10.9, hematocrit 33, platelet count 288. Sodium 139, potassium 5, chloride 104, bicarbonate 29, BUN 7, creatinine 0.6, glucose of 89, magnesium 2.1, phosphorus 3.3, albumin of 1.9. ASSESSMENT AND PLAN: This is a 59-year-old -[place] male initially admitted due to confusion, found to have multiple cerebral vascular accidents (CVAs), pulmonary embolism, started on Eliquis, developed respiratory distress, found to have aspiration pneumonia and gastrointestinal bleed requiring mechanical intubation. Patient underwent reversal with two fresh frozen plasma (FFP), one platelet, protamine, and 3 units RBC transfusion. Emergent EGD showed four deep duodenal ulcers and severe esophagitis. Due to pulmonary embolism (PE) unable to be anticoagulated, patient underwent inferior vena cava (IVC) filter placement. He completed 10 days of IV Zosyn and was fed via total parenteral nutrition (TPN) but currently on tube feedings. Patient has then developed severe anemia. Acute issues are as follows: 1. Acute gastrointestinal bleed with decrease in hemoglobin requiring 2 units RBC transfusion. Patient has known history of four duodenal ulcers, currently on Protonix IV drip. If persistent decrease will stop patient's tube feedings and consult GI, and place the patient back on an octreotide drip and continue with RBC transfusion. May need to use TPN if tube feedings are held until GI bleed can be restabilized. 2. Aspiration pneumonia. Completed 10 days of Zosyn. 3. Acute metabolic encephalopathy due to aspiration pneumonia, CVA, PE, and urinary tract infection (UTI). 4. Urinary tract infection, resolved. Patient has completed antibiotics. 5. Dysphagia secondary to CVA. Currently off anticoagulation because of active GI bleed and recent duodenal ulcers found on EGD, and aspiration precautions currently on tube feedings. Chronic dysphagia secondary to CVA requiring tube feeding but may need to re-evaluate if persistent drop in hemoglobin. 6. Pulmonary embolism. IVC filter placed due to inability to anticoagulate due to GI bleed. 7. Chronic obstructive pulmonary disease (COPD). No exacerbation. 8. Cachexia. Nutrition is consulted. Currently on tube feedings. CODE STATUS: DO NOT RESUSCITATE, DO NOT INTUBATE. MTDD
[2020-03-20 15:36] LABS: BLOOD UREA NITROGEN 7 MG/DL (7-18); CALCIUM LEVEL 8.8 MG/DL (8.8-10.2); CARBON DIOXIDE LEVEL 26 MEQ/L (21-32); CHLORIDE LEVEL 102 MEQ/L (98-107); CREATININE FOR GFR 0.54 MG/DL (0.70-1.30); GLOMERULAR FILTRATION RATE > 60.0 (>49); GLUCOSE, FASTING 81 MG/DL (70-100); POTASSIUM SERUM 3.9 MEQ/L (3.5-5.1); SODIUM LEVEL 135 MEQ/L (136-145)
[2020-03-20 22:00] VITALS: BP 130/88
[2020-03-21] MEDS: PANTOPRAZOLE SODIUM 40 MG in D5W 50 ML IV SCH ×2 (01:41→06:31)
[2020-03-21] MEDS: SUCRALFATE SUSP 1GM/10ML UD GT SCH ×2 (05:35→12:42)
[2020-03-21] MEDS: SODIUM CHLORIDE 0.9% INJ 10 ML SYR IV SCH (05:35)
[2020-03-21] MEDS: PIPERACILLIN/TAZOBACTAM SOD 3.375 GM in D5W MINI-BAG PLUS 50 ML IV SCH (05:37)
[2020-03-21 06:00] VITALS: BP 131/87
[2020-03-21 08:06] LABS: BASO % 0.3 % (0.0-1.0); EOS # 0.2 10^3/uL (0.0-0.5); EOS % 2.5 % (0.0-3.0); HEMATOCRIT 35.4 % (42.0-52.0); HEMOGLOBIN 11.2 g/dl (13.5-17.5); LYMPH # 1.2 10^3/uL (1.5-5.0); LYMPH % 20.1 % (24.0-44.0); MEAN CORPUSCULAR HEMOGLOBIN 29.1 pg (27.0-33.0); MEAN CORPUSCULAR HGB CONC 31.6 g/dl (32.0-36.5); MEAN CORPUSCULAR VOLUME 91.9 fl (80.0-96.0); MONO # 0.7 10^3/uL (0.0-0.8); MONO % 11.8 % (0.0-5.0); NEUTROPHILS # 3.8 10^3/uL (1.5-8.5); NEUTROPHILS % 64.5 % (36.0-66.0); PLATELET COUNT, AUTOMATED 317 10^3/uL (150-450); RED BLOOD COUNT 3.85 10^6/uL (4.30-6.10); WHITE BLOOD COUNT 5.9 10^3/uL (4.0-10.0)
[2020-03-21 08:14] LABS: BLOOD UREA NITROGEN 7 MG/DL (7-18); CALCIUM LEVEL 8.6 MG/DL (8.8-10.2); CARBON DIOXIDE LEVEL 28 MEQ/L (21-32); CHLORIDE LEVEL 102 MEQ/L (98-107); GLOMERULAR FILTRATION RATE > 60.0 (>49); GLUCOSE, FASTING 79 MG/DL (70-100); MAGNESIUM LEVEL 1.8 MG/DL (1.8-2.4); POTASSIUM SERUM 4.1 MEQ/L (3.5-5.1); SODIUM LEVEL 136 MEQ/L (136-145)
[2020-03-21] MEDS: MAGNESIUM OXIDE 400 MG TAB (MAG-OX) GT SCH (08:38)
[2020-03-21] MEDS: THIAMINE 100 MG TAB GT SCH (08:38)
[2020-03-21] MEDS: SPIRONOLACTONE 25 MG TAB GT SCH (08:38)
[2020-03-21] MEDS: VENLAFAXINE 25 MG TAB GT SCH (08:38)
[2020-03-21] MEDS ORDERED: SUCR1ORA GT (10:00)
[2020-03-21] MEDS ORDERED: MAG400TA GT (10:00)
[2020-03-21] MEDS ORDERED: THIA100TA GT (10:00)
[2020-03-21] MEDS ORDERED: haloperidoL IM (10:00)
[2020-03-21] MEDS ORDERED: VENL1TAB35 GT (10:00)
[2020-03-21] MEDS ORDERED: LOPERAMIDE 2 MG CAPLET PO PRN (10:00)
[2020-03-21] MEDS ORDERED: ALDA25TA2 GT (10:00)
--- NOTE | 2020-03-21 13:58 | DS.PDOC ---
Discharge Summary General Date of Admission Feb 10, 2020 at 10:19 Date of Discharge 03/21/2020 Discharge Summary PROCEDURES PERFORMED DURING STAY: [None]. ADMITTING DIAGNOSES / DISCHARGE DIAGNOSES: s/p Acute GI bleed - likely 2/2 duodenal ulcers and severe esophagitis s/p Aspiration pneumonia / UTI Acute metabolic encephalopathy - likely 2/2 multifactorial etiology 2/2 Aspiration PNA / UTI, CVA Dysphagia 2/2 CVA Pulmonary embolism CVA with multiple areas of involvement Chronic obstructive pulmonary disease DLP DVT prophylaxis COMPLICATIONS/CHIEF COMPLAINT: Confusion HISTORY OF PRESENT ILLNESS: Patient is a 59-year-old male with PMHx of Multiple CVAs, COPD, Chronic bronchitis, HTN, who presented to the hospital with confusion. In the emergency room, patient was found to have acute kidney injury and was admitted to hospitalist service for further evaluation and treatment. Patient had an MRI was completed and revealed multiple punctate foci of restricted diffusion scattered above and below the tentorium bilaterally consistent with focal acute ischemia with suspicion for embolic issue. Patient also had a CT angiogram of the chest completed on 02/12 that had revealed small pulmonary embolism and the third order branch in the medial right lower lobe along with mild bibasilar consolidations. Patient started on anticoagulation with Eliquis. Throughout hospital course patient had developed Respiratory distress and was found to have an aspiration PNA and had severe GI bleeding. Patient was intubated and placed on mechanical ventilation. Patient had reversal of his an ticoagulation with 2 FFP 1, platelet protamine sulfate 3 units PRBC. Patient had an emergent EGD that have revealed deep duodenal ulcers and severe esophagitis. Given patient's pulmonary embolism and inability to anticoagulate, patient had an IVC filter placed. Patient's nutrition was supported by TPN until patient ultimately received a PEG tube and was started on tube feedings. Patient had a recent drop in H&H and required 2 units PRBC transfusion. HOSPITAL COURSE: s/p Acute GI bleed - likely 2/2 duodenal ulcers and severe esophagitis. - Patient remains hemodynamically stable - Hemoglobin has remained stable over the last 48 hours - s/p 5 units PRBC, 3 units FFP, 1 unit platelets - will c/w Carafate and Omeprazole BID - Surgery on consultation; appreciate their input s/p Aspiration pneumonia / UTI - Remains hemodynamically stable and afebrile - Leukocytosis has resolved - s/p antibiotic course with Zosyn Acute metabolic encephalopathy - likely 2/2 multifactorial etiology 2/2 Aspiration PNA / UTI, CVA - Imaging revealed multiple areas of infarct; vascular dementia is very likely in the setting - Patient has had multiple episodes of sundowning - c/w Haldol when necessary - Will have outpatient follow-up with neurology Dysphagia 2/2 CVA - Clinically patient is cachetic with poor oral intake - s/p TPN nutrition - s/p PEG tube placement on 03/16/[address] Woods - c/w tube feedings based on Nutrition recommendations Pulmonary embolism - s/p IVC filter on 02/16/[address] Gee - Inability to anticoagulate given extensive bleeding risk / recent GI bleed CVA with multiple areas of involvement - MRI Brain 02/09: Multiple punctate foci of restricted diffusion scattered above and below the tentorium bilaterally consistent with foci of acute ischemia. Qu estion embolic issue. No hemorrhage seen. - ECHO without any evidence of vegetations noted - Discussed risks / benefits with family; including the the high risk of anticoagulation / antiplatelet therapy given his recent GI bleed; they have verbalized understanding that his risk of stroke is still present, however risk of bleeding reduced - Will have outpatient follow up with Neurology - c/w Atorvastatin Chronic obstructive pulmonary disease - No evidence of exacerbation - c/w inhaled therapy as ordered DLP - c/w Atorvastatin DVT prophylaxis - c/w TEDs/Sequentials DISCHARGE MEDICATIONS: Please see below. ALLERGIES: Please see below. PHYSICAL EXAMINATION ON DISCHARGE: Vitals (See below) General: Lying in bed, cachectic, appears comfortable, Awake / Alert HEENT: NC, AT CVS: +S1S2 Lungs: Fair air entry b/l, -w/r/r Abdomen: Soft, ND, NT, +PEG Extremities: - Edema, - Calf tenderness LABORATORY DATA: Please see below. ACTIVITY: [As tolerated]. DISCHARGE PLAN: Follow up with PCP, Neurology, Surgery within 7 days Remain compliant with treatment plan and medications Return to the ER if you experience any problems DISPOSITION: [facility] DISCHARGE CONDITION: [Stable]. TIME SPENT ON DISCHARGE: 40 minutes Vital Signs/I&Os Vital Signs Date Time Temp Pulse Resp B/P (MAP) Pulse Ox O2 Delivery O2 Flow Rate FiO2 03/21/20 06:00 97.2 85 18 131/87 (102) 100 03/20/20 14:00 Room Air 03/16/20 11:55 10 I&O- Last 24 Hours up to 6 AM 03/21/20 06:00 Intake Total 2650 ml Balance 2650 ml Laboratory Data Labs 24H Laboratory Tests 2 03/20/20 15:01: Nucleated Red Blood Cells % (auto) 0.0, Anion Gap 7L, Glomerular Filtration Rate > 60.0, Calcium Level 8.8 03/21/20 07:43: Nucleated Red Blood Cells % (auto) 0.0, Anion Gap 6L, Glomerular Filtration Rate > 60.0, Calcium Level 8.6L, Immature Granulocyte % (Auto) 0.8, Neutrophils (%) (Auto) 64.5, Lymphocytes (%) (Auto) 20.1L, Monocytes (%) (Auto) 11.8H, Eo sinophils (%) (Auto) 2.5, Basophils (%) (Auto) 0.3, Neutrophils # (Auto) 3.8, Lymphocytes # (Auto) 1.2L, Monocytes # (Auto) 0.7, Eosinophils # (Auto) 0.2, Basophils # (Auto) 0.0, Magnesium Level 1.8 CBC/BMP Laboratory Tests 03/20/20 15:01 03/21/20 07:43 Microbiology Microbiology 03/11/20 Urine Culture - Final, Complete Yeast Like Organism Discharge Medications Scheduled Atorvastatin Calcium (Atorvastatin Calcium) 20 Mg Tablet, 40 MG PO DAILY Dronabinol (Dronabinol) 2.5 Mg Capsule, 5 MG PO ACHS Ferrous Sulfate (Ferrous Sulfate) 325 Mg Tablet.dr, 325 MG PO BID, (Reported) Magnesium Oxide (Magnesium Oxide) 400 Mg Tablet, 400 MG GT DAILY Mometasone Furoate (Asmanex) 220 Mcg Aer.pow.ba, 1 PUFF IN QHS, (Reported) Omeprazole (Omeprazole) 20 Mg Capsule.dr, 40 MG PO BID Spironolactone (Aldactone) 25 Mg Tablet, 25 MG GT QAM Sucralfate (Sucralfate) 1 Gm/10 Ml Oral.susp, 1 GM GT Q6H Thiamine Hcl (Vitamin B-1) 100 Mg Tablet, 100 MG GT DAILY Tiotropium Br/Olodaterol HCl (Stiolto Respimat Inhal [place]) 4 Gm Mist.inhal, 2 PUFFS IN DAILY, (Reported) Venlafaxine HCl (Venlafaxine HCl) 25 Mg Tablet, 25 MG GT BID Scheduled PRN [haloperidoL] 5 MG/ML INJ, 1 MG IM Q6HP PRN for AGITATION Allergies Coded Allergies: No Known Drug Allergies (Verified Allergy, Unknown, 02/09/20) NICA RUIZ MD March 21, 2020 13:58
== END 2020-03-21 13:46 | DRG 40 ==
LOC: EDBD 08:52 → M ED 08:52 → M ED INP 08:53 → ENRESERVTM 13:11 → ENRESERVDT 13:11 → M MSPAV 13:38 → OBSVTOIN 02-10 10:19 → M MSPAV 02-11 14:51 → M ICU 02-14 14:00 → M MSPAV 02-17 12:31
PROVIDERS: ADMIT Internal Medicine; ATTEND Internal Medicine
PROC: 0DC98ZZ Extirpation of Matter from Duodenum, Via Natural or Artificial Opening Endoscopic (ICD-10-PCS; 2020-02-14)
PROC: 0DB78ZX Excision of Stomach, Pylorus, Via Natural or Artificial Opening Endoscopic, Diagnostic (ICD-10-PCS; 2020-02-14)
PROC: 0BH17EZ Insertion of Endotracheal Airway into Trachea, Via Natural or Artificial Opening (ICD-10-PCS; 2020-02-14)
PROC: 06HM3DZ Insertion of Intraluminal Device into Right Femoral Vein, Percutaneous Approach (ICD-10-PCS; 2020-02-14)
PROC: 0DB98ZX Excision of Duodenum, Via Natural or Artificial Opening Endoscopic, Diagnostic (ICD-10-PCS; 2020-02-14)
PROC: 30233K1 Transfusion of Nonautologous Frozen Plasma into Peripheral Vein, Percutaneous Approach (ICD-10-PCS; 2020-02-14)
PROC: 30233R1 Transfusion of Nonautologous Platelets into Peripheral Vein, Percutaneous Approach (ICD-10-PCS; 2020-02-14)
PROC: 30233N1 Transfusion of Nonautologous Red Blood Cells into Peripheral Vein, Percutaneous Approach (ICD-10-PCS; 2020-02-14)
PROC: 5A1945Z Respiratory Ventilation, 24-96 Consecutive Hours (ICD-10-PCS; 2020-02-14)
PROC: 06H03DZ Insertion of Intraluminal Device into Inferior Vena Cava, Percutaneous Approach (ICD-10-PCS; principal; 2020-02-15 16:30)
PROC: 02HV33Z Insertion of Infusion Device into Superior Vena Cava, Percutaneous Approach (ICD-10-PCS; 2020-02-18)
PROC: 3E0336Z Introduction of Nutritional Substance into Peripheral Vein, Percutaneous Approach (ICD-10-PCS; 2020-02-18)
PROC: 02HV33Z Insertion of Infusion Device into Superior Vena Cava, Percutaneous Approach (ICD-10-PCS; 2020-03-14)
PROC: 0DH68UZ Insertion of Feeding Device into Stomach, Via Natural or Artificial Opening Endoscopic (ICD-10-PCS; 2020-03-16)
DX: I63.443 Cerebral infarction due to embolism of bilateral cerebellar arteries (principal); G93.41 Metabolic encephalopathy; K26.4 Chronic or unspecified duodenal ulcer with hemorrhage; J96.01 Acute respiratory failure with hypoxia; R57.8 Other shock; N17.0 Acute kidney failure with tubular necrosis; I26.99 Other pulmonary embolism without acute cor pulmonale; J69.0 Pneumonitis due to inhalation of food and vomit; A41.9 Sepsis, unspecified organism; G45.0 Vertebro-basilar artery syndrome; F10.239 Alcohol dependence with withdrawal, unspecified; N39.0 Urinary tract infection, site not specified; E46 Unspecified protein-calorie malnutrition; R64 Cachexia; Z68.1 Body mass index [BMI] 19.9 or less, adult; J44.1 Chronic obstructive pulmonary disease with (acute) exacerbation; E87.0 Hyperosmolality and hypernatremia; E51.2 Wernicke's encephalopathy; D62 Acute posthemorrhagic anemia; E83.39 Other disorders of phosphorus metabolism; Z66 Do not resuscitate; E83.42 Hypomagnesemia; E86.0 Dehydration; J44.9 Chronic obstructive pulmonary disease, unspecified; E87.6 Hypokalemia; I12.9 Hypertensive chronic kidney disease with stage 1 through stage 4 chronic kidney disease, or unspecified chronic kidney disease; K20.9 Esophagitis, unspecified; F12.90 Cannabis use, unspecified, uncomplicated; N18.2 Chronic kidney disease, stage 2 (mild); Z79.899 Other long term (current) drug therapy; F17.200 Nicotine dependence, unspecified, uncomplicated; R13.10 Dysphagia, unspecified

== ENCOUNTER → 2020-03-28 | Outpatient (REF) ==
[~2020-03-28] MED LIST: ALDA25TA2 GT; AMLO10TA5 PO; ASMA220A IN; ATOR1TAB21 PO; DRON2.5C11 PO; FERR325T3 PO; MAG400TA GT; OMEP-218 PO; SPIR-10 PO; STIO1AER IN; SUCR1ORA GT; THIA100TA GT; THIA100TA PO; VENL1TAB35 GT; VENTAER INH; haloperidoL IM
== END ==
LOC: SKLAB2 07:30
PROVIDERS: ATTEND Internal Medicine
DX: Z03.818 Encounter for observation for suspected exposure to other biological agents ruled out (principal)

== ENCOUNTER → 2020-03-28 | Outpatient (REF) ==
[2020-03-28 09:02] LABS: HEMATOCRIT 34.9 % (42.0-52.0); MEAN CORPUSCULAR HEMOGLOBIN 28.9 pg (27.0-33.0); MEAN CORPUSCULAR HGB CONC 31.5 g/dl (32.0-36.5); MEAN CORPUSCULAR VOLUME 91.6 fl (80.0-96.0); PLATELET COUNT, AUTOMATED 262 10^3/uL (150-450); RED BLOOD COUNT 3.81 10^6/uL (4.30-6.10); WHITE BLOOD COUNT 6.2 10^3/uL (4.0-10.0)
[2020-03-28 09:18] LABS: ALBUMIN 2.4 GM/DL (3.2-5.2); ALT/SGPT 13 U/L (12-78); BILIRUBIN,TOTAL 0.4 MG/DL (0.2-1.0); BLOOD UREA NITROGEN 12 MG/DL (7-18); CALCIUM LEVEL 9.1 MG/DL (8.8-10.2); CARBON DIOXIDE LEVEL 30 MEQ/L (21-32); CHLORIDE LEVEL 102 MEQ/L (98-107); CHOLESTEROL LEVEL 125 MG/DL (<200); CHOLESTEROL RISK RATIO 3.472 (<5); CREATININE FOR GFR 0.54 MG/DL (0.70-1.30); GLOMERULAR FILTRATION RATE > 60.0 (>49); GLUCOSE, FASTING 77 MG/DL (70-100); HDL CHOLESTEROL 36 MG/DL (>40); IRON (FE) 45 UG/DL (65-175); LDL CHOLESTEROL 72 MG/DL (<100); NON-HDL-C 89 MG/DL; PHOSPHORUS LEVEL 4.4 MG/DL (2.5-4.9); POTASSIUM SERUM 4.4 MEQ/L (3.5-5.1); SODIUM LEVEL 136 MEQ/L (136-145); TRIGLYCERIDES LEVEL 84 MG/DL (<150)
== END ==
LOC: SKLAB2 07:30
PROVIDERS: ATTEND Internal Medicine
DX: D64.9 Anemia, unspecified (principal); I10 Essential (primary) hypertension

== ENCOUNTER → 2020-04-04 | Outpatient (REF) ==
[2020-04-04 09:00] LABS: HEMATOCRIT 39.1 % (42.0-52.0); HEMOGLOBIN 12.1 g/dl (13.5-17.5); MEAN CORPUSCULAR HEMOGLOBIN 28.9 pg (27.0-33.0); MEAN CORPUSCULAR HGB CONC 30.9 g/dl (32.0-36.5); MEAN CORPUSCULAR VOLUME 93.5 fl (80.0-96.0); PLATELET COUNT, AUTOMATED 241 10^3/uL (150-450); RED BLOOD COUNT 4.18 10^6/uL (4.30-6.10); WHITE BLOOD COUNT 5.9 10^3/uL (4.0-10.0)
[2020-04-04 09:31] LABS: ALBUMIN 2.6 GM/DL (3.2-5.2); BLOOD UREA NITROGEN 15 MG/DL (7-18); CALCIUM LEVEL 9.7 MG/DL (8.8-10.2); CARBON DIOXIDE LEVEL 30 MEQ/L (21-32); CHLORIDE LEVEL 105 MEQ/L (98-107); CREATININE FOR GFR 0.48 MG/DL (0.70-1.30); GLOMERULAR FILTRATION RATE > 60.0 (>49); GLUCOSE, FASTING 98 MG/DL (70-100); MAGNESIUM LEVEL 1.7 MG/DL (1.8-2.4); PHOSPHORUS LEVEL 4.3 MG/DL (2.5-4.9); POTASSIUM SERUM 3.6 MEQ/L (3.5-5.1); SODIUM LEVEL 141 MEQ/L (136-145)
== END ==
LOC: SKLAB2 07:00
PROVIDERS: ATTEND Internal Medicine
DX: I10 Essential (primary) hypertension (principal); E83.42 Hypomagnesemia

== ENCOUNTER → 2020-04-11 | Outpatient (REF) ==
[2020-04-11 08:25] LABS: HEMATOCRIT 37.3 % (42.0-52.0); HEMOGLOBIN 12.1 g/dl (13.5-17.5); MEAN CORPUSCULAR HEMOGLOBIN 29.7 pg (27.0-33.0); MEAN CORPUSCULAR HGB CONC 32.4 g/dl (32.0-36.5); MEAN CORPUSCULAR VOLUME 91.4 fl (80.0-96.0); PLATELET COUNT, AUTOMATED 290 10^3/uL (150-450); RED BLOOD COUNT 4.08 10^6/uL (4.30-6.10); WHITE BLOOD COUNT 6.6 10^3/uL (4.0-10.0)
[2020-04-11 08:50] LABS: ALBUMIN 2.6 GM/DL (3.2-5.2); BLOOD UREA NITROGEN 14 MG/DL (7-18); CARBON DIOXIDE LEVEL 30 MEQ/L (21-32); CHLORIDE LEVEL 102 MEQ/L (98-107); CREATININE FOR GFR 0.44 MG/DL (0.70-1.30); GLOMERULAR FILTRATION RATE > 60.0 (>49); GLUCOSE, FASTING 95 MG/DL (70-100); PHOSPHORUS LEVEL 4.4 MG/DL (2.5-4.9); POTASSIUM SERUM 4.1 MEQ/L (3.5-5.1); SODIUM LEVEL 138 MEQ/L (136-145)
== END ==
LOC: SKLAB2 07:00
PROVIDERS: ATTEND Internal Medicine
DX: I10 Essential (primary) hypertension (principal)

== ENCOUNTER 2020-04-14 09:11 | Emergency (ER) | payer BC, MEDICAID, OTHER ==
[~2020-04-14] VITALS: Ht 172.7 cm; Wt 59.2 kg
[2020-04-14] MEDS ORDERED: ATOR40TA75 GT (09:39)
[2020-04-14] MEDS ORDERED: ALDA25TA2 GT (09:39)
[2020-04-14] MEDS ORDERED: SUCR1ORA GT (09:39)
[2020-04-14] MEDS ORDERED: ENEMENE PR (09:47)
[2020-04-14] MEDS ORDERED: VENL1TAB35 GT (09:47)
[2020-04-14] MEDS ORDERED: BISA10SU27 PR (09:47)
[2020-04-14] MEDS ORDERED: MAGN200T GT (09:47)
[2020-04-14] MEDS ORDERED: FEVE650S3 PR (09:47)
[2020-04-14] MEDS ORDERED: ALBU83IN INH (09:47)
[2020-04-14] MEDS ORDERED: OMEP40CA97 GT (09:47)
[2020-04-14] MEDS ORDERED: THIA100T7 GT (09:47)
[2020-04-14] MEDS ORDERED: FERR5ELX GT (09:47)
[2020-04-14] MEDS ORDERED: ACET-907 GT (09:47)
[2020-04-14 11:30] LABS: BASO % 0.5 % (0.0-1.0); EOS # 0.3 10^3/uL (0.0-0.5); EOS % 3.5 % (0.0-3.0); HEMATOCRIT 34.7 % (42.0-52.0); HEMOGLOBIN 11.6 g/dl (13.5-17.5); LYMPH # 1.8 10^3/uL (1.5-5.0); MEAN CORPUSCULAR HEMOGLOBIN 29.6 pg (27.0-33.0); MEAN CORPUSCULAR HGB CONC 33.4 g/dl (32.0-36.5); MEAN CORPUSCULAR VOLUME 88.5 fl (80.0-96.0); MONO # 0.9 10^3/uL (0.0-0.8); MONO % 10.4 % (0.0-5.0); NEUTROPHILS # 5.2 10^3/uL (1.5-8.5); NEUTROPHILS % 63.2 % (36.0-66.0); PLATELET COUNT, AUTOMATED 300 10^3/uL (150-450); RED BLOOD COUNT 3.92 10^6/uL (4.30-6.10); WHITE BLOOD COUNT 8.2 10^3/uL (4.0-10.0)
[2020-04-14] MEDS ORDERED: GASTROGRAFIN SOLUTION 30ML (Q9963) As Ordered ONE (11:35)
[2020-04-14 12:14] VITALS: BP 143/85
--- NOTE | 2020-04-14 13:40 | REP ---
ABDOMINAL SERIES: Cross-table lateral and supine films of the abdomen and pelvis are performed following injection of a small amount of Gastrografin through a PEG tube. The PEG tube is located in the stomach. Gastrografin contrast is seen within the stomach. Scattered air and fecal material is seen throughout the colon and I cannot see evidence of dilated small bowel loops, with no definite evidence of bowel obstruction. IVC filter is present with the superior tip at the L1-2 level. Scattered vascular calcifications are seen. There are mild degenerative changes of the spine and hips. An accompanying view of the chest demonstrates mild interstitial fibrotic change with no acute infiltrate. The heart is normal in size and the mediastinal silhouette is unchanged. IMPRESSION: No free air. PEG tube in place. No definite bowel obstruction. Lungs are clear of infiltrate. Electronically Signed by Favio Quezada MD 04/14/2020 03:54 P
== END 2020-04-14 12:35 | disposition home or self-care (01) ==
LOC: EDBD 09:11 → M ED 09:11
DX: K94.29 Other complications of gastrostomy (principal); J44.9 Chronic obstructive pulmonary disease, unspecified; I10 Essential (primary) hypertension; E78.5 Hyperlipidemia, unspecified; G93.41 Metabolic encephalopathy; K21.9 Gastro-esophageal reflux disease without esophagitis; Z79.899 Other long term (current) drug therapy

== ENCOUNTER → 2020-04-18 | Outpatient (REF) ==
[~2020-04-18] MED LIST changes: +ACET-907 GT; +ALBU83IN INH; +ATOR40TA75 GT; +BISA10SU27 PR; +ENEMENE PR; +FERR5ELX GT; +FEVE650S3 PR; +MAGN200T GT; +OMEP40CA97 GT; +THIA100T7 GT
[2020-04-18 08:04] LABS: HEMATOCRIT 38.7 % (42.0-52.0); HEMOGLOBIN 12.4 g/dl (13.5-17.5); MEAN CORPUSCULAR VOLUME 90.4 fl (80.0-96.0); PLATELET COUNT, AUTOMATED 265 10^3/uL (150-450); RED BLOOD COUNT 4.28 10^6/uL (4.30-6.10); WHITE BLOOD COUNT 6.6 10^3/uL (4.0-10.0)
[2020-04-18 08:34] LABS: ALBUMIN 2.7 GM/DL (3.2-5.2); BLOOD UREA NITROGEN 13 MG/DL (7-18); CALCIUM LEVEL 9.7 MG/DL (8.8-10.2); CARBON DIOXIDE LEVEL 29 MEQ/L (21-32); CHLORIDE LEVEL 104 MEQ/L (98-107); CREATININE FOR GFR 0.51 MG/DL (0.70-1.30); GLOMERULAR FILTRATION RATE > 60.0 (>49); GLUCOSE, FASTING 93 MG/DL (70-100); PHOSPHORUS LEVEL 4.5 MG/DL (2.5-4.9); POTASSIUM SERUM 3.9 MEQ/L (3.5-5.1); SODIUM LEVEL 138 MEQ/L (136-145)
== END ==
LOC: SKLAB2 08:20
PROVIDERS: ATTEND Internal Medicine
DX: I10 Essential (primary) hypertension (principal)

== ENCOUNTER → 2020-05-02 | Outpatient (REF) | payer OTHER, MEDICAID, BC ==
[2020-05-02 09:32] LABS: BLOOD UREA NITROGEN 14 MG/DL (7-18); CALCIUM LEVEL 9.7 MG/DL (8.8-10.2); CARBON DIOXIDE LEVEL 30 MEQ/L (21-32); CHLORIDE LEVEL 102 MEQ/L (98-107); CREATININE FOR GFR 0.47 MG/DL (0.70-1.30); GLOMERULAR FILTRATION RATE > 60.0 (>49); GLUCOSE, FASTING 91 MG/DL (70-100); MAGNESIUM LEVEL 1.8 MG/DL (1.8-2.4); POTASSIUM SERUM 3.8 MEQ/L (3.5-5.1); SODIUM LEVEL 140 MEQ/L (136-145)
== END ==
LOC: SKLAB2 10:21
PROVIDERS: ATTEND Internal Medicine
DX: E87.8 Other disorders of electrolyte and fluid balance, not elsewhere classified (principal)

== ENCOUNTER 2020-05-26 12:20 | Emergency (ER) | payer OTHER, MEDICAID ==
[~2020-05-26] VITALS: Ht 172.7 cm; Wt 63.6 kg
[~2020-05-26 12:20] MED LIST changes: -AMLO10TA5 PO; +AMLO1TAB25 PO
[2020-05-26 14:59] VITALS: BP 162/94
== END 2020-05-26 15:11 | disposition home or self-care (01) ==
LOC: M ED 12:20 → EDBD 12:20 → M ED 15:11
DX: K94.23 Gastrostomy malfunction (principal); Z79.51 Long term (current) use of inhaled steroids; Z79.899 Other long term (current) drug therapy; Z79.1 Long term (current) use of non-steroidal anti-inflammatories (NSAID)

== ENCOUNTER → 2020-05-30 | Outpatient (REF) | payer MEDICAID, OTHER ==
[~2020-05-30] MED LIST changes: +AMLO10TA5 PO; -AMLO1TAB25 PO
[2020-05-30 08:32] LABS: HEMATOCRIT 44.8 % (42.0-52.0); HEMOGLOBIN 14.1 g/dl (13.5-17.5); MEAN CORPUSCULAR HEMOGLOBIN 28.6 pg (27.0-33.0); MEAN CORPUSCULAR HGB CONC 31.5 g/dl (32.0-36.5); MEAN CORPUSCULAR VOLUME 90.9 fl (80.0-96.0); PLATELET COUNT, AUTOMATED 186 10^3/uL (150-450); RED BLOOD COUNT 4.93 10^6/uL (4.30-6.10); WHITE BLOOD COUNT 6.6 10^3/uL (4.0-10.0)
[2020-05-30 09:15] LABS: ALBUMIN 3.2 GM/DL (3.2-5.2); BLOOD UREA NITROGEN 17 MG/DL (7-18); CARBON DIOXIDE LEVEL 27 MEQ/L (21-32); CHLORIDE LEVEL 106 MEQ/L (98-107); CREATININE FOR GFR 0.51 MG/DL (0.70-1.30); GLOMERULAR FILTRATION RATE > 60.0 (>49); GLUCOSE, FASTING 77 MG/DL (70-100); PHOSPHORUS LEVEL 4.5 MG/DL (2.5-4.9); POTASSIUM SERUM 3.9 MEQ/L (3.5-5.1); SODIUM LEVEL 142 MEQ/L (136-145)
== END ==
LOC: SKLAB2 07:00
PROVIDERS: ATTEND Internal Medicine
DX: D64.9 Anemia, unspecified (principal); I10 Essential (primary) hypertension

== ENCOUNTER → 2020-06-16 | Emergency (ER) | payer OTHER ==
[~2020-06-16] MED LIST changes: -AMLO10TA5 PO; +AMLO1TAB25 PO; +AMOX875T2 PO; +ASPI1CHW3 GT; +ELIQ5TAB GT; +MIRA3350 GT; +MOM30SS PO; +OMEP-218 GT; +PEG1POW PEG; +SULF1TAB93 PO
== END | disposition home or self-care (01) ==
LOC: M ED 18:50
DX: K94.23 Gastrostomy malfunction (principal); R13.10 Dysphagia, unspecified; Y73.2 Prosthetic and other implants, materials and accessory gastroenterology and urology devices associated with adverse incidents; Z79.899 Other long term (current) drug therapy

== ENCOUNTER → 2020-06-27 | Outpatient (REF) | payer OTHER ==
[2020-09-05 08:45] LABS: HEMATOCRIT 44.9 % (42.0-52.0); HEMOGLOBIN 14.3 g/dl (13.5-17.5); MEAN CORPUSCULAR HEMOGLOBIN 29.2 pg (27.0-33.0); MEAN CORPUSCULAR HGB CONC 31.8 g/dl (32.0-36.5); MEAN CORPUSCULAR VOLUME 91.6 fl (80.0-96.0); PLATELET COUNT, AUTOMATED 185 10^3/uL (150-450)
[2020-09-23 07:54] LABS: ALBUMIN 3.3 GM/DL (3.2-5.2); ALT/SGPT 42 U/L (12-78); BILIRUBIN,TOTAL 0.4 MG/DL (0.2-1.0); BLOOD UREA NITROGEN 19 MG/DL (7-18); CARBON DIOXIDE LEVEL 27 MEQ/L (21-32); CHLORIDE LEVEL 110 MEQ/L (98-107); CREATININE FOR GFR 0.62 MG/DL (0.70-1.30); GLOMERULAR FILTRATION RATE > 60.0 (>49); GLUCOSE, FASTING 95 MG/DL (70-100); IRON (FE) 49 UG/DL (65-175); PHOSPHORUS LEVEL 4.1 MG/DL (2.5-4.9); POTASSIUM SERUM 4.1 MEQ/L (3.5-5.1); SODIUM LEVEL 146 MEQ/L (136-145); TOTAL PROTEIN 7.7 GM/DL (6.4-8.2)
== END ==
LOC: SKLAB2 11:40
DX: D64.9 Anemia, unspecified (principal); I10 Essential (primary) hypertension

== ENCOUNTER → 2020-07-24 | Outpatient (REF) ==
[2020-07-24 09:05] LABS: HEMATOCRIT 38.8 % (42.0-52.0); HEMOGLOBIN 12.8 g/dl (13.5-17.5); MEAN CORPUSCULAR HEMOGLOBIN 29.2 pg (27.0-33.0); MEAN CORPUSCULAR VOLUME 88.4 fl (80.0-96.0); PLATELET COUNT, AUTOMATED 208 10^3/uL (150-450); RED BLOOD COUNT 4.39 10^6/uL (4.30-6.10); WHITE BLOOD COUNT 4.5 10^3/uL (4.0-10.0)
== END ==
LOC: SKLAB2 06:00
PROVIDERS: ATTEND Internal Medicine
DX: R31.9 Hematuria, unspecified (principal)

== ENCOUNTER → 2020-07-25 | Outpatient (REF) | payer OTHER | LOC: SKLAB2 07:00 | PROVIDERS: ATTEND Internal Medicine | DX: R31.9 Hematuria, unspecified (principal) ==

== ENCOUNTER 2020-07-31 15:23 | Emergency (ER) | payer OTHER ==
[~2020-07-31] VITALS: Ht 182.9 cm; Wt 68.7 kg
[~2020-07-31 15:23] MED LIST changes: -AMOX875T2 PO; -ASPI1CHW3 GT; -ELIQ5TAB GT; -MIRA3350 GT; -MOM30SS PO; -OMEP-218 GT; -PEG1POW PEG; -SULF1TAB93 PO
[2020-07-31 19:58] VITALS: BP 167/80
--- NOTE | 2020-08-01 05:49 | CR.PDOC ---
General Surgery Consultation Date of Consultation 08/01/20 History and Physical CONSULT REPORT FOR: Emergency room provider REASON FOR CONSULTATION: Dislodged gastrostomy tube HISTORY OF PRESENT ILLNESS: Patient is a 60-year-old male resident of [facility] with a long- standing Alberto button gastrostomy tube which apparently got dislodged overnight and was recognized this morning. There were not able to put the gastrostomy tube back in and thus he was sent to the emergency room. The emergency room providers also is not able to place back the gastrostomy tube thus I was asked to replace the feeding tube. PAST MEDICAL HISTORY: 1. Reviewed from the medical record HOME MEDICATIONS: Please see below. REVIEW OF SYSTEMS: Patient seems to be baseline confused and uncooperative PHYSICAL EXAMINATION: VITALS SIGNS: Please see below. Overall looks comfortable, not in any acute distress. Does not appear chronically ill fair body habitus Gastrostomy tube site at the epigastric area with a small amount of hyper granulation tissue formation. At the time that I entered her room he has an [address]. No surrounding skin erythema. Abdomen is soft, nontender and nondistended LABORATORY DATA: Please see below. IMPRESSION AND PLAN: Dislodged gastrostomy feeding tube I placed back a 20 [place] Alberto button which came in fairly easily save for the fact that patient was slightly uncooperative and at the culture, lot to be able to put it back and. This was tested and noted to be flushing well. Okay to use the gastrostomy tube. Vital Signs Vital Signs Date Time Temp Pulse Resp B/P (MAP) Pulse Ox O2 Delivery O2 Flow Rate FiO2 07/31/20 19:58 98.0 67 18 167/80 (109) 99 Room Air Home Medications Scheduled Atorvastatin Calcium (Atorvastatin Calcium) 40 Mg Tablet, 40 MG GT DAILY, (Reported) Magnesium (Magnesium) 200 Mg Tablet, 400 MG GT DAILY, (Reported) Omeprazole (Omeprazole) 40 Mg Capsule.dr, 40 MG GT BID, (Reported) Venlafaxine HCl (Venlafaxine HCl) 25 Mg Tablet, 25 MG GT BID, (Reported) Scheduled PRN Acetaminophen (Feverall) 650 Mg Supp.rect, 650 MG [place] Q4H PRN for PAIN / FEVER, (Reported) Acetaminophen (Tylenol) 325 Mg Tablet, 650 MG GT Q4H PRN for PAIN / FEVER, (R eported) Albuterol Sulf (Albuterol Sulfate) 2.5 Mg/3 Ml Vial.neb, 2.5 MG INH Q6H PRN for SHORTNESS OF BREATH, (Reported) Bisacodyl (Bisacodyl) 10 Mg Supp.rect, 10 MG [place] DAILY PRN for CONSTIPATION, (Reported) Sodium Phosphate,[place]-Dibasic (Enema) 133 Ml Enema, 1 GABRIEL [place] DAILY PRN for CONSTIPATION, (Reported) Allergies Coded Allergies: No Known Drug Allergies (Verified Allergy, Unknown, 02/09/20) BE HARDIN MD Aug 01, 2020 05:49
[2020-08-01] MEDS ORDERED: OMEP-218 GT (05:56)
[2020-08-01] MEDS ORDERED: ELIQ5TAB GT (05:56)
[2020-08-01] MEDS ORDERED: ASPI1CHW3 GT (05:56)
== END 2020-07-31 20:10 | disposition home or self-care (01) ==
LOC: M ED 15:23
DX: K94.23 Gastrostomy malfunction (principal); I12.9 Hypertensive chronic kidney disease with stage 1 through stage 4 chronic kidney disease, or unspecified chronic kidney disease; J44.9 Chronic obstructive pulmonary disease, unspecified; Z86.73 Personal history of transient ischemic attack (TIA), and cerebral infarction without residual deficits; K21.9 Gastro-esophageal reflux disease without esophagitis; N18.9 Chronic kidney disease, unspecified; M54.9 Dorsalgia, unspecified; G93.41 Metabolic encephalopathy; F32.9 Major depressive disorder, single episode, unspecified; Z86.711 Personal history of pulmonary embolism; Z95.828 Presence of other vascular implants and grafts; Z79.899 Other long term (current) drug therapy

== ENCOUNTER 2020-08-01 03:06 | Inpatient (IN) | payer OTHER ==
[~2020-08-01] VITALS: Ht 172.7 cm; Wt 64.4 kg
[2020-08-01 03:50] LABS: BASO % 0.1 % (0.0-1.0); EOS # 0.2 10^3/uL (0.0-0.5); HEMATOCRIT 39.4 % (42.0-52.0); HEMOGLOBIN 12.8 g/dl (13.5-17.5); LYMPH # 1.1 10^3/uL (1.5-5.0); MEAN CORPUSCULAR HEMOGLOBIN 28.9 pg (27.0-33.0); MEAN CORPUSCULAR HGB CONC 32.5 g/dl (32.0-36.5); MEAN CORPUSCULAR VOLUME 88.9 fl (80.0-96.0); MONO # 0.5 10^3/uL (0.0-0.8); MONO % 7.4 % (0.0-5.0); NEUTROPHILS # 5.1 10^3/uL (1.5-8.5); NEUTROPHILS % 73.4 % (36.0-66.0); PLATELET COUNT, AUTOMATED 177 10^3/uL (150-450); RED BLOOD COUNT 4.43 10^6/uL (4.30-6.10)
[2020-08-01] MEDS ORDERED: NS 1,000 ML IV ONE (04:15)
[2020-08-01 04:28] LABS: INR 1.2; PROTHROMBIN TIME 15.5 SECONDS (11.8-14.0)
[2020-08-01 04:29] LABS: PARTIAL THROMBOPLASTIN TIME 34.6 SECONDS (25.0-38.4)
[2020-08-01 04:39] LABS: ALBUMIN 3.3 GM/DL (3.2-5.2); ALT/SGPT 19 U/L (12-78); BILIRUBIN,DIRECT 0.2 MG/DL (0.0-0.2); BILIRUBIN,TOTAL 0.6 MG/DL (0.2-1.0); BLOOD UREA NITROGEN 14 MG/DL (7-18); CALCIUM LEVEL 9.3 MG/DL (8.8-10.2); CARBON DIOXIDE LEVEL 27 MEQ/L (21-32); CHLORIDE LEVEL 108 MEQ/L (98-107); CK-MB VALUE MASS 1.1 NG/ML (<3.6); CPK CREATINE PHOSPHOKINASE 72 U/L (39-308); CREATININE FOR GFR 0.59 MG/DL (0.70-1.30); GLOMERULAR FILTRATION RATE > 60.0 (>49); GLUCOSE, FASTING 119 MG/DL (70-100); LIPASE 45 U/L (73-393); MB/CK RELATIVE INDEX 1.53 (< OR =4); POTASSIUM SERUM 3.4 MEQ/L (3.5-5.1); SODIUM LEVEL 142 MEQ/L (136-145); TOTAL PROTEIN 6.7 GM/DL (6.4-8.2); TROPONIN I < 0.02 NG/ML (< 0.10)
[2020-08-01] MEDS ORDERED: ONDANSETRON 4MG/2ML VIAL IV ONE ×2 (04:45→06:00)
[2020-08-01] MEDS ORDERED: ISOVUE-370 76% 100ML VIAL As Ordered ONE (04:50)
[2020-08-01] MEDS: GASTROGRAFIN SOLUTION 30ML PO SCH ×2 (05:10→05:41)
[2020-08-01] MEDS ORDERED: ASPI1CHW3 GT (05:56)
[2020-08-01] MEDS ORDERED: OMEP-218 GT (05:56)
[2020-08-01] MEDS ORDERED: ELIQ5TAB GT (05:56)
--- NOTE | 2020-08-01 07:41 | REPVR ---
PROCEDURE INFORMATION: Exam: CT Abdomen And Pelvis With Contrast Exam date and time: 08/01/2020 6:56 AM Age: 60 years old Clinical indication: Abdominal pain; Generalized; Additional info: Gen abd pain, vomiting TECHNIQUE: Imaging protocol: Computed tomography of the abdomen and pelvis with intravenous contrast. Radiation optimization: All CT scans at this facility use at least one of these dose optimization techniques: automated exposure control; mA and/or kV adjustment per patient size (includes targeted exams where dose is matched to clinical indication); or iterative reconstruction. Contrast material: ISOVUE 370; Contrast volume: 100 ml; Contrast route: INTRAVENOUS (IV); COMPARISON: CR Abdomen,Flat Upright,PA CHEST 04/14/2020 11:22 AM FINDINGS: Tubes, catheters and devices: Percutaneous gastrostomy tube with a 5.6 x 4.2 by 4.9 cm hematoma surrounding the gastrostomy tube balloon. Lungs: Emphysematous change, bronchial dilatation, interstitial prominence, and mild dependent airspace disease. Liver: No focal hepatic mass. Gallbladder and bile ducts: Contracted gallbladder. No biliary ductal dilatation. Pancreas: No pancreatic mass or ductal dilatation. Spleen: Multiple nodular hypodense splenic lesions which do not fulfill CT criteria for simple cysts, the largest measuring 1.1 cm. Adrenals: Poorly characterized 1.1 cm right adrenal nodular lesion. Kidneys and ureters: Normal renal morphology. No hydronephrosis. Stomach and bowel: Marked gastric wall thickening, which can be better evaluated with endoscopy, as clinically indicated. Bowel dilatation, disproportionately involving the colon, along with copious stool in a pattern of constipation. Rectal wall thickening. Appendix: Appendix not visualized. Intraperitoneal space: No significant free fluid. Vasculature: Extensive vascular calcification and atherosclerotic plaque. No abdominal aortic aneurysm. IVC filter. Lymph nodes: Subcentimeter lymph nodes. Bladder: Normal bladder morphology. Reproductive: Unremarkable as visualized. Bones/joints: Degenerative change and disc bulging. Contour irregularity about the posteromedial aspect of the left ilium. IMPRESSION: 1. Percutaneous gastrostomy tube with a 5.6 x 4.2 by 4.9 cm hematoma surrounding the gastrostomy tube balloon. 2. Marked gastric wall thickening, which can be better evaluated with endoscopy, as clinically indicated. 3. Bowel dilatation, disproportionately involving the colon, with copious stool in a pattern of constipation. 4. Rectal wall thickening. 5. Additional findings as described above. Electronically signed by: Juanjose Tam On 08/01/2020 07:41:37 AM
[2020-08-01] MEDS ORDERED: ASPIRIN 81 MG CHEW TABLET GT SCH (09:00)
[2020-08-01] MEDS ORDERED: METOCLOPRAMIDE INJ 10MG/2ML VIAL (J2765 PER 1) IV ONE (09:45)
[2020-08-01] MEDS ORDERED: FLEET ENEMA PR PRN (10:00)
[2020-08-01] MEDS ORDERED: BISACODYL 10 MG SUPP PR PRN (10:00)
[2020-08-01] MEDS ORDERED: ALBUTEROL SULFATE 2.5 MG/0.5 ML INH NEB SOLN INH PRN (10:00)
[2020-08-01] MEDS ORDERED: MIRALAX *UNIT DOSE* 17GM PACKET PEG PRN (10:00)
[2020-08-01] MEDS ORDERED: ACETAMINOPHEN 325 MG TAB GT PRN (10:00)
[2020-08-01 11:27] VITALS: BP 160/80
[2020-08-01] MEDS: ATORVASTATIN 20 MG TAB GT SCH (12:26)
[2020-08-01] MEDS: APIXABAN 5 MG TAB (ELIQUIS) GT SCH ×2 (12:26→17:00)
[2020-08-01 14:00] VITALS: BP 164/70
--- NOTE | 2020-08-01 15:17 | CR.PDOC ---
General Surgery Consultation Date of Consultation 08/01/20 History and Physical CONSULT REPORT FOR: Dr. Brown, Hospitalist service REASON FOR CONSULTATION: abdominal pain, hematoma at gastric wall following replacement of gastrostomy tube HISTORY OF PRESENT ILLNESS: I saw Mr. Mock in the evening of July 31 when he was brought into the emergency room from [facility] for a dislodged feeding tube and I placed a new 20 Danish 3 cm Hudson-Nieto button gastrostomy tube which on the second time around went in easily but the first time around patient was not cooperating well and was straining his abdominal muscles. Prior to this the emergency room provider has tried to replace the feeding tube and was unable to and a temporary 18 Danish Rogers catheter was left in place. When I came in and I had to enlarge the tract with a hemostat to allow the placement of a 20 Danish Kelly button. Apparently he came back to the emergency room and was reporting abdominal pain as well as vomiting for which she was found to have a hematoma surrounding the balloon of the gastrostomy tube also with findings of constipation and subseq uently was admitted to the hospital and I'm being asked to come see the patient. Looking at his electronic records history(Patient not giving much information- has history of dementia), this was placed on March 16 and a regular gastrostomy tube was placed. Is not clear when the original gastrostomy tube was changed to making button or whether the gastrostomy tube that was dislodged in the [facility] with a regular gastrostomy tube with a mushroom bumper and this was traumatically dislodged. This apparently was dislodged in the evening of 07/30/2020. He was brought in in the afternoon of 07/31/2020. At the time that I came in a kelly button was in the room presumably gets what he has for tube feeding but looking back in the history he should've had a regular gastrostomy tube with a mushroom bumper so the dislodged gastrostomy tube could've been traumatic enough to cause some bleeding or the difficulty in placing back the gastrostomy tube this could have caused the bleeding. PAST MEDICAL HISTORY: 1. Dementia. 2. Alcohol abuse 3. History of duodenal ulcer with bleeding in January 2020 4. Dysphagia and aspiration needing a gastrostomy tube for feeding 5. Hypertension 6. DVT with PE 7. History of GI bleed from duodenal ulcer in January 2020 8. COPD 9. CVA PAST SURGICAL HISTORY: INCLUDES: 1. Upper endoscopy and PEG tube placement. 2. IVC filter placement ALLERGIES: Please see below. HOME MEDICATIONS: Please see below. REVIEW OF SYSTEMS: Unobtainable. Patient is demented and not oriented. PHYSICAL EXAMINATION: VITALS SIGNS: Please see below. GENERAL APPEARANCE: Patient is awake laying on bed. Not oriented to place time and person. He mumbles things that are not related to the questions he is awake and moves all extremities normally. SKIN: Warm and dry. LUNGS: Clear to auscultation bilaterally. No wheezing appreciated. HEART: No chest wall abnormalities. Regular rate and rhythm with no murmurs appreciated. ABDOMEN: Abdomen is flat, nondistended. He is tender on palpation over the midline close to where the gastrostomy tube site is. He has a gastrostomy coming off from the left of the midline at the epigastric area. There is some hypertrophic granulation tissue surrounding the exit site. Currently there is a 20 Danish Kelly button. There is some clotted hematoma surrounding the site likewise drainage around the tube site which is bloody. EXTREMITIES: Extremities have no deformities. No edema identified ANCILLARIES: . LABORATORY DATA: Please see below. IMAGING STUDIES: CT scan abdomen and pelvis IMPRESSION AND PLAN: Traumatic placement of gastrostomy tube with hematoma History of PUD with bleeding back in January Currently on liquids and aspirin for history of CVA as well as history of DVT and PE I have stopped the aspirin and liquids temporarily. Patient has an IVC filter in place. I've also discontinue the making button. The leakage around the tube site may be a function of the improper size of the length of the Kelly button. Cu rrently this is a 3 cm/20 F tube. I have placed a replacement gastrostomy tube with a balloon and an external bumper and placed this to low intermittent wall suction to see how much blood this in the stomach and to monitor for bleeding. Repeat hemoglobin and hematocrit does not show any significant decrease in the bowel movements reported yesterday following the laxatives was documented as brown and not melanotic. This could just be some local irritation and bleeding from the traumatic placement of the gastrostomy tube and not from the prior duodenal ulcer. He'll monitor his course to see if he needs an upper endoscopy done. Have spoken to Dr. Holbrook on may be engaging speech therapy to evaluate if he can eat orally or if he remains in danger of aspiration. Vital Signs Vital Signs Date Time Temp Pulse Resp B/P (MAP) Pulse Ox O2 Delivery O2 Flow Rate FiO2 08/01/20 11:27 97.3 93 17 160/80 (106) 100 Room Air Laboratory Data Labs 24H Laboratory Tests 2 08/01/20 03:10: Immature Granulocyte % (Auto) 0.1, Neutrophils (%) (Auto) 73.4H, Lymphocytes (%) (Auto) 16.0L, Monocytes (%) (Auto) 7.4H, Eosinophils (%) (Auto) 3.0, Basophils (%) (Auto) 0.1, Neutrophils # (Auto) 5.1, Lymphocytes # (Auto) 1.1L, Monocytes # (Auto) 0.5, Eosinophils # (Auto) 0.2, Basophils # (Auto) 0.0, Nucleated Red Blood Cells % (auto) 0.0, Prothrombin Time 15.5H, Prothromb Time International Ratio 1.20, Activated Partial Thromboplast Time 34.6, Anion Gap 7L, Glomerular Filtration Rate > 60.0, Lactic Acid Level 1.1, Calcium Level 9.3, Total Bilirubin 0.6, Direct Bilirubin 0.2, Aspartate Amino Transf (AST/SGOT) 16, Alanine Aminotransferase (ALT/SGPT) 19, Alkaline Phosphatase 97, Total Creatine Kinase 72, Creatine Kinase MB 1.1, Creatine Kinase MB Relative Index 1.53, Troponin I < 0.02, Total Protein 6.7, Albumin 3.3, Albumin/Globulin Ratio 1.0, Lipase 45L CBC/BMP Laboratory Tests 08/01/20 03:10 Microbiology Microbiology 08/01/20 Blood Culture, Received Pending 08/01/20 Blood Culture, Received Pending Home Medications Scheduled Apixaban (Eliquis) 5 Mg Tablet, 5 MG GT BID, (Reported) MORNING, 1700 Aspirin (Aspirin) 81 Mg Tab.chew, 81 MG GT DAILY, (Reported) Atorvastatin Calcium (Atorvastatin Calcium) 40 Mg Tablet, 40 MG GT DAILY, (Reported) Omeprazole (Omeprazole) 20 Mg Capsule.dr, 20 MG GT DAILY, (Reported) Venlafaxine HCl (Venlafaxine HCl) 25 Mg Tablet, 25 MG GT BID, (Reported) MORNING, 1600 Scheduled PRN Acetaminophen (Feverall) 650 Mg Supp.rect, 650 MG [place] Q4H PRN for PAIN / FEVER, (Reported) Acetaminophen (Tylenol) 325 Mg Tablet, 650 MG GT Q4H PRN for PAIN / FEVER, (Reported) Albuterol Sulf (Albuterol Sulfate) 2.5 Mg/3 Ml Vial.neb, 2.5 MG INH Q6H PRN for SHORTNESS OF BREATH, (Reported) Bisacodyl (Bisacodyl) 10 Mg Supp.rect, 10 MG LA DAILY PRN for CONSTIPATION, (Reported) Sodium Phosphate,[place]-Dibasic (Enema) 133 Ml Enema, 1 GABRIEL LA DAILY PRN for CONSTIPATION, (Reported) Allergies Coded Allergies: No Known Drug Allergies (Verified Allergy, Unknown, 02/09/20) BE HARDIN MD Aug 01, 2020 14:11
[2020-08-01] MEDS: VENLAFAXINE 25 MG TAB GT SCH (17:09)
--- NOTE | 2020-08-01 17:52 | HPEPDOC ---
[facility] Medical History & Physical Date of Admission Aug 01, 2020 Date of Service: Aug 01, 2020 History and Physical CHIEF COMPLAINT: abdominal pain HISTORY OF PRESENT ILLNESS: 60 yo male recently seen in ED for PEG tube change, returns for abdominal pain. Found to be obstipated, with hematoma at PEG tube site. PAST MEDICAL HISTORY: #dysphagia s/p PEG tubes, with pleasure feeds at [facility] #EtOH abuse (history of) #PUD - negative H. pylori - s/p biopsy January 2020 #cognitive dysfunction #HTN #DVT/PE s/p IVC filter #GI bleed/anemia #hx of aspiration PNA s/p feeding tube #COPD # multiple CVA ALLERGIES: Please see below. REVIEW OF SYSTEMS: Negative except as per HPI. HOME MEDICATIONS: Please see below. PHYSICAL EXAMINATION: VITAL SIGNS: See below General: NAD, lying comfortably in bed HEENT: NC/AT Lungs: CTA B/L HEart: +S1S2, RRR Abd: soft, mild tender, insertion site with serosanguineous drainage Ext: no edema LABORATORY DATA: See below. MICROBIOLOGY: Please see below. ASSESSMENT: 60 yo male recently seen in ED for PEG tube change, returns for abdominal pain. Found to be obstipated, with hematoma at PEG tube site. #abdominal pain/obstipation - surgery c/s pending - assistance appreciated - miralax BID #PEG tube/dysphagia - hematoma at site - serial H/H - surgical c/s pending - pleasure feeds at [facility] #EtOH abuse (history of) #PUD - negative H. pylori - s/p biopsy January 2020 #cognitive dysfunction #HTN #DVT/PE s/p IVC filter #GI bleed/anemia #hx of aspiration PNA s/p feeding tube #COPD # multiple CVA Vital Signs Vital Signs Date Time Temp Pulse Resp B/P (MAP) Pulse Ox O2 Delivery O2 Flow Rate FiO2 08/01/20 14:00 97.4 90 18 164/70 (101) 100 Room Air Laboratory Data Labs 24H Laboratory Tests 2 08/01/20 03:10: Immature Granulocyte % (Auto) 0.1, Neutrophils (%) (Auto) 73.4H, Lymphocytes (%) (Auto) 16.0L, Monocytes (%) (Auto) 7.4H, Eosinophils (%) (Auto) 3.0, Basophils (%) (Auto) 0.1, Neutrophils # (Auto) 5.1, Lymphocytes # (Auto) 1.1L, Monocytes # (Auto) 0.5, Eosinophils # (Auto) 0.2, Basophils # (Auto) 0.0, Nucleated Red Blood Cells % (auto) 0.0, Prothrombin Time 15.5H, Prothromb Time International Ratio 1.20, Activated Partial Thromboplast Time 34.6, Anion Gap 7L, Glomerular Filtration Rate > 60.0, Lactic Acid Level 1.1, Calcium Level 9.3, Total Bilirubin 0.6, Direct Bilirubin 0.2, Aspartate Amino Transf (AST/SGOT) 16, Alanine Aminotransferase (ALT/SGPT) 19, Alkaline Phosphatase 97, Total Creatine Kinase 72, Creatine Kinase MB 1.1, Creatine Kinase MB Relative Index 1.53, Troponin I < 0.02, Total Protein 6.7, Albumin 3.3, Albumin/Globulin Ratio 1.0, Lipase 45L CBC/BMP Laboratory Tests 08/01/20 03:10 Microbiology Microbiology 08/01/20 Blood Culture, Received Pending 08/01/20 Blood Culture, Received Pending Home Medications Scheduled Apixaban (Eliquis) 5 Mg Tablet, 5 MG GT BID MORNING, 1700 Aspirin (Aspirin) 81 Mg Tab.chew, 81 MG GT DAILY Atorvastatin Calcium (Atorvastatin Calcium) 40 Mg Tablet, 40 MG GT DAILY Omeprazole (Omeprazole) 20 Mg Capsule.dr, 20 MG GT DAILY Venlafaxine HCl (Venlafaxine HCl) 25 Mg Tablet, 25 MG GT BID MORNING, 1600 Scheduled PRN Acetaminophen (Feverall) 650 Mg Supp.rect, 650 MG [place] Q4H PRN for PAIN / FEVER Acetaminophen (Tylenol) 325 Mg Tablet, 650 MG GT Q4H PRN for PAIN / FEVER Albuterol Sulf (Albuterol Sulfate) 2.5 Mg/3 Ml Vial.neb, 2.5 MG INH Q6H PRN for SHORTNESS OF BREATH Bisacodyl (Bisacodyl) 10 Mg Supp.rect, 10 MG [place] DAILY PRN for CONSTIPATION Sodium Phosphate,Nolan-Dibasic (Enema) 133 Ml Enema, 1 GABRIEL [place] DAILY PRN for CONSTIPATION Allergies Coded Allergies: No Known Drug Allergies (Verified Allergy, Unknown, 02/09/20) A-FIB/CHADSVASC A-FIB History Current/History of A-Fib/PAF?: No Current PO Anticoag Therapy: No LALDIN,RONY S. MD Aug 01, 2020 17:52
--- NOTE | 2020-08-01 20:32 | ECGEPIP ---
[facility] - ED Test Date: 2020-08-01 Pat Name: DELIA RENNER Department: Room: - Gender: Male Physician/Internist: mitzi : [id number] Requested By: GREG Latham Order Number: [id number] Reading MD: Ria Corona Measurements Intervals [place] Rate: 54 P: 60 CA: 165 QRS: 57 QRSD: 81 T: 70 QT: 474 QTc: 450 Interpretive Statements SINUS BRADYCARDIA WITH MARKED SINUS ARRHYTHMIA NONSPECIFIC T-WAVE ABNORMALITY DECREASED RATE 02/09/20 Electronically Signed on 08-01-2020 20:31:50 EDT by Ria Corona
[2020-08-01 22:00] VITALS: BP 99/66
[2020-08-01 23:35] VITALS: BP 96/60
[2020-08-02] MEDS ORDERED: D5W/0.9% SODIUM CHLORIDE 1,000 ML IV ONE
[2020-08-02 01:24] VITALS: BP 98/60
[2020-08-02] MEDS: ACETAMINOPHEN 650 MG SUPP PR PRN ×2 (02:14→09:28)
[2020-08-02 02:17] VITALS: BP 99/62
[2020-08-02 03:28] VITALS: BP 130/66
[2020-08-02 06:00] VITALS: BP 112/67
[2020-08-02 07:00] LABS: HEMATOCRIT 37.8 % (42.0-52.0); HEMOGLOBIN 12.3 g/dl (13.5-17.5); MEAN CORPUSCULAR HEMOGLOBIN 29.3 pg (27.0-33.0); MEAN CORPUSCULAR HGB CONC 32.5 g/dl (32.0-36.5); PLATELET COUNT, AUTOMATED 159 10^3/uL (150-450); WHITE BLOOD COUNT 13.9 10^3/uL (4.0-10.0)
[2020-08-02 07:16] LABS: ALBUMIN 2.6 GM/DL (3.2-5.2); ALT/SGPT 13 U/L (12-78); BILIRUBIN,TOTAL 0.9 MG/DL (0.2-1.0); BLOOD UREA NITROGEN 12 MG/DL (7-18); CALCIUM LEVEL 8.8 MG/DL (8.8-10.2); CARBON DIOXIDE LEVEL 27 MEQ/L (21-32); CHLORIDE LEVEL 113 MEQ/L (98-107); CREATININE FOR GFR 0.65 MG/DL (0.70-1.30); GLOMERULAR FILTRATION RATE > 60.0 (>49); GLUCOSE, FASTING 120 MG/DL (70-100); POTASSIUM SERUM 3.5 MEQ/L (3.5-5.1); SODIUM LEVEL 146 MEQ/L (136-145); TOTAL PROTEIN 6.2 GM/DL (6.4-8.2)
[2020-08-02] MEDS: VENLAFAXINE 25 MG TAB GT SCH ×2 (09:00→16:00)
[2020-08-02] MEDS: ATORVASTATIN 20 MG TAB GT SCH (09:00)
--- NOTE | 2020-08-02 10:43 | IPNPDOC ---
Text Note Date of Service The patient was seen on 08/02/20. NOTE S: Patient seen and examined at bedside this morning. Patient still with abdominal pain, but better controlled. Also notes nausea, no vomiting. O: VITAL SIGNS: See below General: NAD, lying comfortably in bed HEENT: NC/AT Lungs: CTA B/L HEart: +S1S2, RRR Abd: soft, mild tender, insertion site with serosanguineous drainage Ext: no edema LABORATORY DATA: See below. MICROBIOLOGY: Please see below. ASSESSMENT: 60 yo male recently seen in ED for PEG tube change, returns for abdominal pain. Found to be obstipated, with hematoma at PEG tube site. #abdominal pain/obstipation - follow as per surgery - assistance appreciated - miralax BID #PEG tube/dysphagia - hematoma at site - serial H/H - follow as per surgery - pleasure feeds at [facility] - re-evaluate with swallow study as per ST #EtOH abuse (history of) #PUD - negative H. pylori - s/p biopsy January 2020 #cognitive dysfunction #HTN #DVT/PE s/p IVC filter #GI bleed/anemia #hx of aspiration PNA s/p feeding tube #COPD # multiple CVA VS,Fishbone, I+O VS, Fishbone, I+O Laboratory Tests 08/02/20 06:08 Vital Signs Date Time Temp Pulse Resp B/P (MAP) Pulse Ox O2 Delivery O2 Flow Rate FiO2 08/02/20 06:00 96.6 80 22 112/67 (82) 97 Room Air I&O- Last 24 Hours up to 6 AM 08/02/20 06:00 Intake Total 1760 ml Output Total 300 ml Balance 1460 ml RONY SNYDER MD Aug 02, 2020 10:43
[2020-08-02] MEDS: PANTOPRAZOLE 40MG VIAL (C9113 PER 1) IV SCH (10:44)
[2020-08-02 14:00] VITALS: BP 105/67
[2020-08-02] MEDS: D5W/0.45% SODIUM CHLORIDE 1,000 ML IV SCH (18:48)
[2020-08-02 22:00] VITALS: BP 110/72
[2020-08-03] MEDS: D5W/0.45% SODIUM CHLORIDE 1,000 ML IV SCH (04:46)
[2020-08-03 06:00] VITALS: BP 110/64
[2020-08-03 06:01] LABS: BASO % 0.2 % (0.0-1.0); EOS % 0.2 % (0.0-3.0); HEMOGLOBIN 13.4 g/dl (13.5-17.5); LYMPH # 0.9 10^3/uL (1.5-5.0); LYMPH % 8.3 % (24.0-44.0); MEAN CORPUSCULAR HEMOGLOBIN 28.7 pg (27.0-33.0); MEAN CORPUSCULAR HGB CONC 31.9 g/dl (32.0-36.5); MEAN CORPUSCULAR VOLUME 89.9 fl (80.0-96.0); MONO # 0.9 10^3/uL (0.0-0.8); MONO % 7.6 % (0.0-5.0); NEUTROPHILS # 9.4 10^3/uL (1.5-8.5); NEUTROPHILS % 82.3 % (36.0-66.0); PLATELET COUNT, AUTOMATED 178 10^3/uL (150-450); RED BLOOD COUNT 4.67 10^6/uL (4.30-6.10); WHITE BLOOD COUNT 11.4 10^3/uL (4.0-10.0)
[2020-08-03 06:21] LABS: BLOOD UREA NITROGEN 13 MG/DL (7-18); CARBON DIOXIDE LEVEL 26 MEQ/L (21-32); CHLORIDE LEVEL 115 MEQ/L (98-107); CREATININE FOR GFR 0.68 MG/DL (0.70-1.30); GLOMERULAR FILTRATION RATE > 60.0 (>49); GLUCOSE, FASTING 93 MG/DL (70-100); POTASSIUM SERUM 3.3 MEQ/L (3.5-5.1); SODIUM LEVEL 148 MEQ/L (136-145)
[2020-08-03] MEDS ORDERED: POTASSIUM CHLORIDE 10% LIQ 20 MEQ/15 ML UDC PO ONE (08:00)
[2020-08-03 08:40] LABS: MAGNESIUM LEVEL 2.1 MG/DL (1.8-2.4)
[2020-08-03 08:46] LABS: OSMOLALITY SERUM 298 MOSM/KG (280-301)
[2020-08-03] MEDS: ATORVASTATIN 20 MG TAB GT SCH (09:00)
[2020-08-03] MEDS: VENLAFAXINE 25 MG TAB GT SCH ×2 (09:00→17:18)
[2020-08-03] MEDS: PANTOPRAZOLE 40MG VIAL (C9113 PER 1) IV SCH (09:20)
[2020-08-03] MEDS: KCL 10MEQ/100ML SWI (KRUN) 10 MEQ in IV 1 EA IV SCH ×2 (09:24→11:08)
[2020-08-03] MEDS ORDERED: UNASYN 1.5 GM VIAL As Ordered ONE (11:11)
[2020-08-03] MEDS ORDERED: SILVER NITRATE APPLICATOR As Ordered ONE (11:26)
--- NOTE | 2020-08-03 11:45 | IPNPDOC ---
Text Note Date of Service The patient was seen on 08/03/20. NOTE S: Patient seen and examined at bedside this morning. Patient still with abdominal pain, but better controlled. Also notes nausea, no vomiting. O: VITAL SIGNS: See below General: NAD, lying comfortably in bed HEENT: NC/AT Lungs: CTA B/L HEart: +S1S2, RRR Abd: soft, mild tender, insertion site with serosanguineous drainage Ext: no edema LABORATORY DATA: See below. MICROBIOLOGY: Please see below. ASSESSMENT: 60 yo male recently seen in ED for PEG tube change, returns for abdominal pain. Found to be obstipated, with hematoma at PEG tube site. #abdominal pain/obstipation - follow as per surgery - assistance appreciated - miralax BID #PEG tube/dysphagia - diet ordered after re-eval from ST - hematoma at site - serial H/H - follow as per surgery - plan is for NPO/EGD today #EtOH abuse (history of) #PUD - negative H. pylori - s/p biopsy January 2020 #cognitive dysfunction #HTN #DVT/PE s/p IVC filter #GI bleed/anemia #hx of aspiration PNA s/p feeding tube #COPD # multiple CVA Dispo: pending clinical improvement, patient is full code - rescinded DNR/DNI VS,Camacho, I+O VS, Camacho, I+O Laboratory Tests 08/03/20 05:27 Vital Signs Date Time Temp Pulse Resp B/P (MAP) Pulse Ox O2 Delivery O2 Flow Rate FiO2 08/03/20 06:00 99.3 98 16 110/64 (79) 97 Room Air I&O- Last 24 Hours up to 6 AM 08/03/20 06:00 Intake Total 1620 ml Output Total 75 ml Balance 1545 ml RONY SNYDER MD Aug 03, 2020 11:45
--- NOTE | 2020-08-03 11:58 | IPNPDOC ---
Text Note Date of Service The patient was seen on 08/03/20. NOTE Patient is stable. His pain is improved. We still were not able to use the ga strostomy tube. We attempted to use this for feeding yesterday and were getting a lot of drainage around the tube site despite changing the Alberto button to a regular gastrostomy tube with both an internal balloon and external bumper. When the aspirate the tube there is blood tinged feeding. When I placed this to suction we did not get out much bloody drainage. Otherwise he has been hemodynamically stable. His blood counts has been flat. I have discussed this with his who is his healthcare proxy and he planned to bring him to the operating room today for endoscopy. I suspect there may be some mechanical effect of solidified clot that is preventing us from using the feeding tube or we may need to change this to a gastroduodenostomy to feed him further downstream. VS,Fishbone, I+O VS, Fishbone, I+O Laboratory Tests 08/03/20 05:27 Vital Signs Date Time Temp Pulse Resp B/P (MAP) Pulse Ox O2 Delivery O2 Flow Rate FiO2 08/03/20 06:00 99.3 98 16 110/64 (79) 97 Room Air I&O- Last 24 Hours up to 6 AM 08/03/20 06:00 Intake Total 1620 ml Output Total 75 ml Balance 1545 ml BE HARDIN MD Aug 03, 2020 11:58
[2020-08-03] MEDS ORDERED: propofoL 200 MG/20 ML VIAL As Ordered ONE (13:39)
[2020-08-03] MEDS ORDERED: fentaNYL 100 MCG/2 ML INJECTION (J3010) As Ordered ONE (13:48)
[2020-08-03] MEDS ORDERED: LR 1,000 ML IV SCH (15:00)
[2020-08-03] MEDS ORDERED: ONDANSETRON 4MG/2ML VIAL IV PRN (15:00)
[2020-08-03 15:15] VITALS: BP 151/72
[2020-08-03] MEDS: MORPHINE 2 MG/ML 1ML VIAL (J2270) IV PRN (16:41)
[2020-08-03] MEDS: AMPICILLIN SOD/SULBACTAM SOD 3 GM in D5W MINI-BAG PLUS 100 ML IV SCH ×2 (17:18→23:54)
[2020-08-03 22:00] VITALS: BP 128/42
[2020-08-04] MEDS: MORPHINE 2 MG/ML 1ML VIAL (J2270) IV PRN (04:07)
[2020-08-04 04:13] VITALS: BP 123/74
[2020-08-04] MEDS: AMPICILLIN SOD/SULBACTAM SOD 3 GM in D5W MINI-BAG PLUS 100 ML IV SCH ×3 (05:28→17:16)
[2020-08-04 06:00] VITALS: BP 133/84
[2020-08-04 06:44] LABS: HEMATOCRIT 41.7 % (42.0-52.0); HEMOGLOBIN 13.2 g/dl (13.5-17.5); MEAN CORPUSCULAR HGB CONC 31.7 g/dl (32.0-36.5); MEAN CORPUSCULAR VOLUME 91.6 fl (80.0-96.0); PLATELET COUNT, AUTOMATED 187 10^3/uL (150-450); RED BLOOD COUNT 4.55 10^6/uL (4.30-6.10); WHITE BLOOD COUNT 7.6 10^3/uL (4.0-10.0)
[2020-08-04 07:08] LABS: BLOOD UREA NITROGEN 14 MG/DL (7-18); CALCIUM LEVEL 9.1 MG/DL (8.8-10.2); CARBON DIOXIDE LEVEL 24 MEQ/L (21-32); CHLORIDE LEVEL 116 MEQ/L (98-107); CREATININE FOR GFR 0.62 MG/DL (0.70-1.30); GLOMERULAR FILTRATION RATE > 60.0 (>49); GLUCOSE, FASTING 96 MG/DL (70-100); POTASSIUM SERUM 3.5 MEQ/L (3.5-5.1); SODIUM LEVEL 147 MEQ/L (136-145)
[2020-08-04 07:11] LABS: LYMPHOCYTES 14 % (16-44); MONOCYTES 11 % (0-5); NEUTROPHILS 75 % (28-66)
[2020-08-04 07:13] LABS: ANISOCYTOSIS 1+; PLATELET ESTIMATE NORMAL (NORMAL)
[2020-08-04] MEDS: ATORVASTATIN 20 MG TAB GT SCH (10:34)
[2020-08-04] MEDS: PANTOPRAZOLE 40MG VIAL (C9113 PER 1) IV SCH (10:34)
[2020-08-04] MEDS: VENLAFAXINE 25 MG TAB GT SCH ×2 (10:34→16:14)
[2020-08-04 14:00] VITALS: BP 120/70
--- NOTE | 2020-08-04 19:01 | IPNPDOC ---
Subjective Date Seen The patient was seen on 08/04/20. Subjective Chief Complaint/HPI Mr. Mock is a 60 year old male here from [facility] with adominal pain and hematoma at gastric wall following replacement. Yesterday, he had a new tube placed through EGD by surgery. Otherwise, this morning, he denies fever, chest pain, dyspnea, diarrhea, or dysuria. Surgery was okay with started tube feeds today and were started later in the day. Constitutional: Denies: Fever Pulmonary: Denies: Dyspnea Cardiovascular: Denies: Chest Pain Gastrointestinal: Denies: Diarrhea Genitourinary: Denies: Dysuria Objective Physical Examination General Exam: Positive: Alert, Cooperative Eye Exam: Positive: EOMI; Negative: Sclera icteric ENT Exam: Positive: Atraumatic Neck Exam: Positive: Supple Chest Exam: Positive: Clear to auscultation Heart Exam: Positive: Rate Normal, Regular Rhythm Abdomen Exam: Positive: Normal bowel sounds Extremity Exam: Positive: Edema (Mild pitting edema bilaterally) Assessment /Plan Assessment mr. Mokc is a 60 year old male from [facility] here with abdominal pain secondary to h ematoma around peg tube. Yesterday, a new tube was placed. Today, surgery was ok starting with tube feeds. Disposition pending surgery clearance and tolerance of tube feeds Plan/VTE VTE Prophylaxis Ordered?: Yes Plan 1. Hematoma/dislodged peg tube. - New peg tube placed - Starting tube feeds today - Surgery following recommendations appreciated 2. Dysphagia - He was on pleasure feeds at [facility] - Speech/swallow evaluated for diet. Recommendations appreciated 3. GI bleed/anemia - he has IVC filter for DVT/PE 4. History of CVA - On atorvastatin 5. Depression - On Venlafaxine 6. DVT ppx - TEDs, ordered physical therapy to help with ambulation VS, I&O, 24H, Fishbone Vital Signs/I&O Vital Signs Date Time Temp Pulse Resp B/P (MAP) Pulse Ox O2 Delivery O2 Flow Rate FiO2 08/04/20 14:00 98.7 86 20 120/70 (87) 96 Room Air 08/03/20 14:38 10 I&O- Last 24 Hours up to 6 AM 08/04/20 06:00 Intake Total 1150 ml Output Total 675 ml Balance 475 ml Laboratory Data 24H LABS Laboratory Tests 2 08/04/20 05:53: Neutrophils (%) (Auto) , Nucleated Red Blood Cells % (auto) 0.0, Neutrophils 75H, Lymphocytes (Manual) 14L, Monocytes (Manual) 11H, Anisocytosis 1+, Platelet Estimate NORMAL, Anion Gap 7L, Glomerular Filtration Rate > 60.0, Calcium Level 9.1 CBC/BMP Laboratory Tests 08/04/20 05:53 Microbiology Microbiology 08/03/20 Blood Culture - Preliminary, Resulted No growth after 24 hours . All specim... 08/03/20 Blood Culture - Preliminary, Resulted No growth after 24 hours . All specim... 08/01/20 Blood Culture - Preliminary, Resulted No Growth after 72 hours. All specime... 08/01/20 Blood Culture - Preliminary, Resulted No Growth after 72 hours. All specime... PHU LANE DO Aug 04, 2020 19:01
[2020-08-04 22:00] VITALS: BP 134/78
[2020-08-05] MEDS: AMPICILLIN SOD/SULBACTAM SOD 3 GM in D5W MINI-BAG PLUS 100 ML IV SCH ×5 (00:03→23:10)
[2020-08-05 06:00] VITALS: BP 138/82
[2020-08-05 08:34] LABS: BASO % 0.2 % (0.0-1.0); EOS # 0.2 10^3/uL (0.0-0.5); EOS % 2.9 % (0.0-3.0); HEMATOCRIT 36.9 % (42.0-52.0); HEMOGLOBIN 11.8 g/dl (13.5-17.5); LYMPH # 0.7 10^3/uL (1.5-5.0); LYMPH % 11.6 % (24.0-44.0); MEAN CORPUSCULAR HEMOGLOBIN 29.4 pg (27.0-33.0); MEAN CORPUSCULAR VOLUME 91.8 fl (80.0-96.0); MONO # 0.6 10^3/uL (0.0-0.8); MONO % 11.3 % (0.0-5.0); NEUTROPHILS # 4.1 10^3/uL (1.5-8.5); NEUTROPHILS % 73.6 % (36.0-66.0); PLATELET COUNT, AUTOMATED 192 10^3/uL (150-450); RED BLOOD COUNT 4.02 10^6/uL (4.30-6.10); WHITE BLOOD COUNT 5.6 10^3/uL (4.0-10.0)
[2020-08-05 08:41] LABS: BLOOD UREA NITROGEN 16 MG/DL (7-18); CALCIUM LEVEL 8.9 MG/DL (8.8-10.2); CARBON DIOXIDE LEVEL 26 MEQ/L (21-32); CHLORIDE LEVEL 119 MEQ/L (98-107); CREATININE FOR GFR 0.71 MG/DL (0.70-1.30); GLOMERULAR FILTRATION RATE > 60.0 (>49); GLUCOSE, FASTING 126 MG/DL (70-100); POTASSIUM SERUM 3.3 MEQ/L (3.5-5.1); SODIUM LEVEL 152 MEQ/L (136-145)
[2020-08-05] MEDS: ATORVASTATIN 20 MG TAB GT SCH (09:31)
[2020-08-05] MEDS: POTASSIUM CHLORIDE 10% LIQ 20 MEQ/15 ML UDC PEG SCH (09:31)
[2020-08-05] MEDS: PANTOPRAZOLE 40MG VIAL (C9113 PER 1) IV SCH (09:31)
[2020-08-05] MEDS: VENLAFAXINE 25 MG TAB GT SCH ×2 (09:31→16:35)
--- NOTE | 2020-08-05 12:48 | IPNPDOC ---
Subjective Date Seen The patient was seen on 08/05/20. Subjective Chief Complaint/HPI Mr. Mock is a 60 year old male here from [facility] with abdominal pain and hematoma at gastric wall following replacement. No problems overnight, he was seen in the morning. He appears stronger and his voice is stronger. When asked about symptoms, he evaded my question. He is confused, thinking we are in [place]. He did not know the year Pulmonary: Denies: Dyspnea Cardiovascular: Denies: Chest Pain Objective Physical Examination General Exam: Positive: Alert, Cooperative Eye Exam: Positive: EOMI; Negative: Sclera icteric ENT Exam: Positive: Atraumatic Neck Exam: Positive: Supple Chest Exam: Positive: Clear to auscultation Heart Exam: Positive: Rate Normal, Regular Rhythm Abdomen Exam: Positive: Normal bowel sounds Extremity Exam: Positive: Edema (Mild pitting edema bilaterally) Psych Exam: Negative: Oriented x 3 (confused, thinks were in [place], doesn't know year) Assessment /Plan Assessment Mr. Mock is a 60 year old male from [facility] here with abdominal pain secondary to hematoma around peg tube. He had a new PEG tube placed on 08/03, started tube feeds on 08/04. Disposition pending surgery clearance and tolerance of tube feeds Plan/VTE VTE Prophylaxis Ordered?: Yes Plan 1. Hematoma/dislodged peg tube. - New peg tube placed - Starting tube feeds today - Surgery following recommendations appreciated 2. Dysphagia - He was on pleasure feeds at [facility] - Speech/swallow evaluated for diet. Recommendations appreciated 3. GI bleed/anemia - he has IVC filter for DVT/PE 4. History of CVA - On atorvastatin 5. Depression - On Venlafaxine 6. Debility - Physical therapy to work with him 7. Hypokalemia - Will order 40 mEq liquid potassium. Continue to monitor 8. DVT ppx - TEDs and SCD. VS, I&O, 24H, Fishbone Vital Signs/I&O Vital Signs Date Time Temp Pulse Resp B/P (MAP) Pulse Ox O2 Delivery O2 Flow Rate FiO2 08/05/20 06:00 97.3 86 20 138/82 (100) 99 Room Air 08/03/20 14:38 10 I&O- Last 24 Hours up to 6 AM 08/05/20 06:00 Intake Total 260 ml Output Total 0 ml Balance 260 ml Laboratory Data 24H LABS Laboratory Tests 2 08/05/20 06:32: Immature Granulocyte % (Auto) 0.4, Neutrophils (%) (Auto) 73.6H, Lymphocytes (%) (Auto) 11.6L, Monocytes (%) (Auto) 11.3H, Eosinophils (%) (Auto) 2.9, Basophils (%) (Auto) 0.2, Neutrophils # (Auto) 4.1, Lymphocytes # (Auto) 0.7L, Monocytes # (Auto) 0.6, Eosinophils # (Auto) 0.2, Basophils # (Auto) 0.0, Nucleated Red Blood Cells % (auto) 0.0, Anion Gap 7L, Glomerular Filtration Rate > 60.0, Calcium Level 8.9 CBC/BMP Laboratory Tests 08/05/20 06:32 Microbiology Microbiology 08/03/20 Blood Culture - Preliminary, Resulted No growth after 24 hours . All specim... 08/03/20 Blood Culture - Preliminary, Resulted No growth after 24 hours . All specim... 08/01/20 Blood Culture - Preliminary, Resulted No Growth after 72 hours. All specime... 08/01/20 Blood Culture - Preliminary, Resulted No Growth after 72 hours. All specime... PHU LANE DO Aug 05, 2020 12:48
[2020-08-05 14:00] VITALS: BP 143/85
[2020-08-05 22:00] VITALS: BP 144/78
[2020-08-06] MEDS: AMPICILLIN SOD/SULBACTAM SOD 3 GM in D5W MINI-BAG PLUS 100 ML IV SCH ×3 (05:07→17:23)
[2020-08-06 06:00] VITALS: BP 144/84
[2020-08-06 07:54] LABS: BASO % 0.3 % (0.0-1.0); EOS # 0.4 10^3/uL (0.0-0.5); HEMATOCRIT 38.6 % (42.0-52.0); LYMPH # 1.1 10^3/uL (1.5-5.0); LYMPH % 18.4 % (24.0-44.0); MEAN CORPUSCULAR HEMOGLOBIN 28.6 pg (27.0-33.0); MEAN CORPUSCULAR HGB CONC 31.1 g/dl (32.0-36.5); MEAN CORPUSCULAR VOLUME 91.9 fl (80.0-96.0); MONO # 0.8 10^3/uL (0.0-0.8); NEUTROPHILS # 3.6 10^3/uL (1.5-8.5); PLATELET COUNT, AUTOMATED 221 10^3/uL (150-450); WHITE BLOOD COUNT 5.9 10^3/uL (4.0-10.0)
[2020-08-06 08:07] LABS: BLOOD UREA NITROGEN 12 MG/DL (7-18); CALCIUM LEVEL 8.7 MG/DL (8.8-10.2); CARBON DIOXIDE LEVEL 25 MEQ/L (21-32); CHLORIDE LEVEL 122 MEQ/L (98-107); CREATININE FOR GFR 0.62 MG/DL (0.70-1.30); GLOMERULAR FILTRATION RATE > 60.0 (>49); GLUCOSE, FASTING 118 MG/DL (70-100); POTASSIUM SERUM 3.4 MEQ/L (3.5-5.1); SODIUM LEVEL 152 MEQ/L (136-145)
[2020-08-06] MEDS: VENLAFAXINE 25 MG TAB GT SCH ×3 (10:08→17:23)
[2020-08-06] MEDS: POTASSIUM CHLORIDE 10% LIQ 20 MEQ/15 ML UDC PEG SCH ×2 (10:09→11:35)
[2020-08-06] MEDS: PANTOPRAZOLE 40MG VIAL (C9113 PER 1) IV SCH ×2 (10:09→11:21)
[2020-08-06] MEDS: ATORVASTATIN 20 MG TAB GT SCH ×2 (10:09→11:35)
[2020-08-06 14:00] VITALS: BP 135/82
--- NOTE | 2020-08-06 18:52 | IPNPDOC ---
Subjective Date Seen The patient was seen on 08/06/20. Subjective Chief Complaint/HPI Mr. Mock is a 60 year old male here from [facility] with abdominal pain and hematoma at gastric wall following replacement. Nurse says he is getting stronger. He has been occasionally fighting the tube feeds and oral meds. Otherwise, he is hard of hearing. Denies fever, chest pain, dyspnea, or dysuria. Some abdominal pain 2/2 surgery Constitutional: Denies: Chills, Fever Pulmonary: Denies: Dyspnea Cardiovascular: Denies: Chest Pain Gastrointestinal: Reports: Abdominal Pain (secondary to surgery) Genitourinary: Denies: Dysuria Objective Physical Examination General Exam: Positive: Alert, Cooperative Eye Exam: Positive: EOMI; Negative: Sclera icteric ENT Exam: Positive: Atraumatic Neck Exam: Positive: Supple Chest Exam: Positive: Clear to auscultation Heart Exam: Positive: Rate Normal, Regular Rhythm Abdomen Exam: Positive: Normal bowel sounds Extremity Exam: Positive: Edema (Mild pitting edema bilaterally) Psych Exam: Negative: Oriented x 3 (confused, does not know location or year) Assessment /Plan Assessment Mr. Mock is a 60 year old male from [facility] here with abdominal pain secondary to hematoma around peg tube. He had a new PEG tube placed on 08/03, started tube feeds on 08/04. Disposition pending surgery clearance and tolerance of tube feeds Plan/VTE VTE Prophylaxis Ordered?: Yes Plan 1. Hematoma/dislodged peg tube. - New peg tube placed and feeds have restarted - Surgery following recommendations appreciated 2. Dysphagia - He was on pleasure feeds at [facility] - Speech/swallow evaluated for diet. Recommendations appreciated 3. GI bleed/anemia - he has IVC filter for DVT/PE 4. History of CVA - On atorvastatin 5. Depression - On Venlafaxine 6. Debility - Physical therapy to work with him 7. Hypokalemia - Will order 40 mEq liquid potassium. Continue to monitor 8. DVT ppx - TEDs and SCD. VS, I&O, 24H, Fishbone Vital Signs/I&O Vital Signs Date Time Temp Pulse Resp B/P (MAP) Pulse Ox O2 Delivery O2 Flow Rate FiO2 08/06/20 14:00 98.1 94 17 135/82 (99) 98 Room Air 08/03/20 14:38 10 I&O- Last 24 Hours up to 6 AM 08/06/20 06:00 Intake Total 680 ml Output Total 600 ml Balance 80 ml Laboratory Data 24H LABS Laboratory Tests 2 08/06/20 06:50: Immature Granulocyte % (Auto) 0.3, Neutrophils (%) (Auto) 62.0, Lymphocytes (%) (Auto) 18.4L, Monocytes (%) (Auto) 13.0H, Eosinophils (%) (Auto) 6.0H, Basophils (%) (Auto) 0.3, Neutrophils # (Auto) 3.6, Lymphocytes # (Auto) 1.1L, Monocytes # (Auto) 0.8, Eosinophils # (Auto) 0.4, Basophils # (Auto) 0.0, Nucleated Red Blood Cells % (auto) 0.0, Anion Gap 5L, Glomerular Filtration Rate > 60.0, Calcium Level 8.7L CBC/BMP Laboratory Tests 08/06/20 06:50 Microbiology Microbiology 08/03/20 Blood Culture - Preliminary, Resulted No Growth after 72 hours. All specime... 08/03/20 Blood Culture - Preliminary, Resulted No Growth after 72 hours. All specime... 08/01/20 Blood Culture - Final, Complete NO GROWTH AFTER 5 DAYS 08/01/20 Blood Culture - Final, Complete NO GROWTH AFTER [address] DO Aug 06, 2020 18:52
[2020-08-06 22:00] VITALS: BP 126/74
[2020-08-07] MEDS: AMPICILLIN SOD/SULBACTAM SOD 3 GM in D5W MINI-BAG PLUS 100 ML IV SCH ×3 (00:09→12:07)
[2020-08-07 06:00] VITALS: BP 126/69
[2020-08-07 06:44] LABS: BASO % 0.1 % (0.0-1.0); EOS # 0.4 10^3/uL (0.0-0.5); EOS % 5.5 % (0.0-3.0); HEMATOCRIT 38.1 % (42.0-52.0); HEMOGLOBIN 11.6 g/dl (13.5-17.5); LYMPH # 1.4 10^3/uL (1.5-5.0); LYMPH % 18.8 % (24.0-44.0); MEAN CORPUSCULAR HEMOGLOBIN 28.4 pg (27.0-33.0); MEAN CORPUSCULAR HGB CONC 30.4 g/dl (32.0-36.5); MEAN CORPUSCULAR VOLUME 93.2 fl (80.0-96.0); MONO # 0.7 10^3/uL (0.0-0.8); MONO % 9.2 % (0.0-5.0); PLATELET COUNT, AUTOMATED 246 10^3/uL (150-450); RED BLOOD COUNT 4.09 10^6/uL (4.30-6.10); WHITE BLOOD COUNT 7.5 10^3/uL (4.0-10.0)
[2020-08-07 07:11] LABS: BLOOD UREA NITROGEN 11 MG/DL (7-18); CALCIUM LEVEL 8.9 MG/DL (8.8-10.2); CARBON DIOXIDE LEVEL 28 MEQ/L (21-32); CHLORIDE LEVEL 117 MEQ/L (98-107); CREATININE FOR GFR 0.71 MG/DL (0.70-1.30); GLOMERULAR FILTRATION RATE > 60.0 (>49); GLUCOSE, FASTING 117 MG/DL (70-100); POTASSIUM SERUM 3.5 MEQ/L (3.5-5.1); SODIUM LEVEL 148 MEQ/L (136-145)
[2020-08-07] MEDS ORDERED: PEG1POW PEG (10:04)
[2020-08-07] MEDS: ATORVASTATIN 20 MG TAB GT SCH (10:12)
[2020-08-07] MEDS: PANTOPRAZOLE 40MG VIAL (C9113 PER 1) IV SCH (10:13)
[2020-08-07] MEDS: VENLAFAXINE 25 MG TAB GT SCH (10:13)
--- NOTE | 2020-08-07 21:15 | DS.PDOC ---
Discharge Summary General Date of Admission Aug 01, 2020 at 09:51 Date of Discharge Aug 07, 2020 Attending Physician: PHU LANE DO Specialist/Consultants [facility] General surgery, Dr. Quijano Discharge Summary PROCEDURES PERFORMED DURING STAY: Removal of old PEG tube and insertion of new PEG tube ADMITTING DIAGNOSES: 1. Hematoma around PEG tube. 2. Dysphagia status post PEG tube placement. 3. PUD 4. Hypertension. 5. COPD 6. History of multiple CVAs. 7. Obstipation DISCHARGE DIAGNOSES: 1. Hematoma around PEG tube. 2. Dysphagia status post PEG tube placement. 3. PUD 4. Hypertension. 5. COPD 6. History of multiple CVAs. 7. Obstipation COMPLICATIONS/CHIEF COMPLAINT: Obstipation. HISTORY OF PRESENT ILLNESS: Mr. Mock is a 60 year old male with history of multiple CVAs, dyspnea s/p PEG, and cognitive dysfunction who is here with hematoma at PEG tube site. General surgery was consulted. HOSPITAL COURSE: He had a new peg tube placement on 08/03/2020. He then was started on tube feeds on 08/04/2020. The tolerated the tube feeds well. Residuals were zero. As he was being fed, he was also getting stronger. Initially, he was soft spoken and did not get out of bed. Today, he was sitting in a chair with a stronger voice and more animated. He complained of abdominal pain secondary to surgery, but otherwise denies fever, dyspnea, or dysuria. He was then returned to [facility]. Of note, family hopes to return him home once he is safe enough to return home. DISCHARGE MEDICATIONS: Please see below. ALLERGIES: Please see below. PHYSICAL EXAMINATION ON DISCHARGE: VITAL SIGNS: Please see below. GENERAL: Comfortable, in no apparent distress. HEENT: Head normocephalic/atraumatic, sclera clear. NECK: Supple RESPIRATORY: Lungs clear to auscultation bilaterally, no rales, wheeze or rhonchi. CARDIOVASCULAR: Regular rate and rhythm. ABDOMEN: No bleeding from old PEG site. Normal bowel sounds. MUSCLE SKELETAL: Moves all extremities without difficulty. PSYCHOLOGICAL: Confused LABORATORY DATA: Please see below. PROGNOSIS: Stable ACTIVITY: As tolerated. DIET: Jevity 1.5 bolus, 360 mL 4 times a day at 400,1000, 1600, 2200. 100 mL free water flush with feeds DISCHARGE PLAN: To return to [facility] DISPOSITION: [facility]. DISCHARGE INSTRUCTIONS: 1. Follow up with the PCP in one week. 2. Follow-up with Gen. surgery in one week. DISCHARGE CONDITION: Stable Total time spent on discharge planning, discharge summary and med reconciliation 45 minutes Vital Signs/I&Os Vital Signs Date Time Temp Pulse Resp B/P (MAP) Pulse Ox O2 Delivery O2 Flow Rate FiO2 08/07/20 06:00 97.6 93 18 126/69 (88) 98 Room Air 08/03/20 14:38 10 I&O- Last 24 Hours up to 6 AM 08/07/20 05:59 Intake Total 3020 ml Output Total 0 ml Balance 3020 ml Laboratory Data Labs 24H Laboratory Tests 2 08/07/20 05:45: Immature Granulocyte % (Auto) 0.4, Neutrophils (%) (Auto) 66.0, Lymphocytes (%) (Auto) 18.8L, Monocytes (%) (Auto) 9.2H, Eosinophils (%) (Auto) 5.5H, Basophils (%) (Auto) 0.1, Neutrophils # (Auto) 5.0, Lymphocytes # (Auto) 1.4L, Monocytes # (Auto) 0.7, Eosinophils # (Auto) 0.4, Basophils # (Auto) 0.0, Nucleated Red Blood Cells % (auto) 0.0, Anion Gap 3L, Glomerular Filtration Rate > 60.0, Calcium Level 8.9 08/07/20 10:43: Coronavirus (COVID-19)(PCR) NEGATIVE CBC/BMP Laboratory Tests 08/07/20 05:45 Microbiology Microbiology 08/03/20 Blood Culture - Preliminary, Resulted No Growth after 72 hours. All specime... 08/03/20 Blood Culture - Preliminary, Resulted No Growth after 72 hours. All specime... 08/01/20 Blood Culture - Final, Complete NO GROWTH AFTER 5 DAYS 08/01/20 Blood Culture - Final, Complete NO GROWTH AFTER 5 DAYS Discharge Medications Scheduled Apixaban (Eliquis) 5 Mg Tablet, 5 MG GT BID, (Reported) MORNING, 1700 Aspirin (Aspirin) 81 Mg Tab.chew, 81 MG GT DAILY, (Reported) Atorvastatin Calcium (Atorvastatin Calcium) 40 Mg Tablet, 40 MG GT DAILY, (Reported) Omeprazole (Omeprazole) 20 Mg Capsule.dr, 20 MG GT DAILY, (Reported) Venlafaxine HCl (Venlafaxine HCl) 25 Mg Tablet, 25 MG GT BID, (Reported) MORNING, 1600 Scheduled PRN Acetaminophen (Feverall) 650 Mg Supp.rect, 650 MG UT Q4H PRN for PAIN / FEVER, (Reported) Acetaminophen (Tylenol) 325 Mg Tablet, 650 MG GT Q4H PRN for PAIN / FEVER, (Reported) Albuterol Sulf (Albuterol Sulfate) 2.5 Mg/3 Ml Vial.neb, 2.5 MG INH Q6H PRN for SHORTNESS OF BREATH, (Reported) Bisacodyl (Bisacodyl) 10 Mg Supp.rect, 10 MG UT DAILY PRN for CONSTIPATION, (Reported) Polyethylene Glycol 3350 (Polyethylene Glycol 3350) 17 Gm Powd.pack, 1 PKT PEG BID PRN for CONSTIPATION Sodium Phosphate,[place]-Dibasic (Enema) 133 Ml Enema, 1 GABRIEL UT DAILY PRN for CONSTIPATION, (Reported) Allergies Coded Allergies: No Known Drug Allergies (Verified Allergy, Unknown, 02/09/20) PHU LANE DO Aug 07, 2020 21:15
--- NOTE | 2020-08-11 12:50 | ROOR ---
Patient Name: Zach Mock Procedure Date: 08/03/2020 1:27 PM Date of : 1960 Age: 60 Gender: Male Note Status: Finalized Procedure: Upper GI endoscopy Indications: Diagnostic procedure, Abnormal CT of the GI tract, malfunctioning gastrostomy tube Providers: Leon Quijano MD Referring MD: 2. Inpatient 2. Inpatient Requesting Provider: Medicines: Monitored Anesthesia Care Complications: No immediate complications. Procedure: Pre-Anesthesia Assessment: - Prior to the procedure, a History and Physical was performed, and patient medications and allergies were reviewed. The patient is unable to give consent secondary to the patient's altered mental status. The risks and benefits of the procedure and the sedation options and risks were discussed with the patient's spouse. All questions were answered and informed consent was obtained. Patient identification and proposed procedure were verified by the physician, the nurse and the anesthesiologist in the procedure room. Mental Status Examination: alert but confused. Airway Examination: normal oropharyngeal airway and neck mobility. Respiratory Examination: clear to auscultation. CV Examination: normal. Prophylactic Antibiotics: The patient requires prophylactic antibiotics for planned PEG placement. The patient received antibiotic therapy during the procedure. Prior Anticoagulants: The patient has taken no previous anticoagulant or antiplatelet agents except for aspirin. ASA Grade Assessment: III - A patient with severe systemic disease. After reviewing the risks and benefits, the patient was deemed in satisfactory condition to undergo the procedure. The anesthesia plan was to use monitored anesthesia care (MAC). Immediately prior to administration of medications, the patient was re-assessed for adequacy to receive sedatives. The heart rate, respiratory rate, oxygen saturations, blood pressure, adequacy of pulmonary ventilation, and response to care were monitored throughout the procedure. The physical status of the patient was re-assessed after the procedure. The Endoscope was introduced through the mouth, and advanced to the second part of duodenum. The upper GI endoscopy was accomplished without difficulty. The patient tolerated the procedure well. Findings: The examined esophagus was normal. There is bulging inwards fo the mucosa at the site of the previous feeding tube. Initially the gastrostomy tube is in place going through the skin but the tip/end of the gastrostomy tube is not visible and is pushign the mucosa inwards. I could see the prior entry point and tried to maneuver the gastrostomy through the stomach wall but the tract seems already closed, thus I removed the old gastrostomy and plan to place a new PEG tube. I instructed anesthesia to give him Unasyn 3 gm IV for wound prophylaxis. The patient was placed in the supine position for PEG placement. The stomach was insufflated to appose gastric and abdominal dsouza. A site was located in the body of the stomach with good transillumination for placement. The abdominal wall was marked and prepped in a sterile manner. The area was anesthetized with 3 mL of 0.5% lidocaine. The trocar needle was introduced through the abdominal wall and into the stomach under direct endoscopic view. A snare was introduced through the endoscope and opened in the gastric lumen. The guide wire was passed through the trocar and into the open snare. The snare was closed around the guide wire. The endoscope and snare were removed, pulling the wire out through the mouth. A skin incision was made at the site of needle insertion. The externally removable 20 Fr Arnoldo-POKKT gastrostomy tube was lubricated. The G-tube was passed over the guide wire through the mouth, and into the stomach. The trocar needle was removed, and the gastrostomy tube was pulled out from the stomach through the skin. The guide wire was removed, and the external bumper attached to the gastrostomy tube. The feeding tube was then cut to an appropriate length. The final position of the gastrostomy tube was confirmed by relook endoscopy, and skin marking noted to be 3 cm at the external bumper. The final tension and compression of the abdominal wall by the PEG tube and external bumper were checked and revealed that the bumper was loose and lightly touching the skin. The feeding tube was capped, and the tube site was cleaned and dressed. I initially tried to go through the prior skin opening to connect the inside and outside tracts but due to the wall pushed in was not able to. I chose an appropriate area away from the prior insertion site (lower and lateral) and got good transillumination at this area and chose this as site of insertion. The first portion of the duodenum was normal. Impression: - Normal esophagus. - Normal first portion of the duodenum. - An externally removable PEG placement was successfully completed. - No specimens collected. Recommendation: - [facility] the [facility]. - Please follow the post-PEG recommendations including: may use PEG today for meds and water and may use PEG tomorrow for feedings. Attending Participation: I personally performed the entire procedure. Leon Quijano MD Leon Quijano MD 08/11/2020 12:49:48 PM Electronically signed by Leon Quijano MD Number of Addenda: 0 Note Initiated On: 08/03/2020 1:27 PM Estimated Blood Loss: Estimated blood loss was minimal.
== END 2020-08-07 13:20 | DRG 920 ==
LOC: M ED 03:06 → M ED INP 09:51 → M MSPAV 11:28
PROVIDERS: ADMIT Internal Medicine; ATTEND Internal Medicine
PROC: 0DH68UZ Insertion of Feeding Device into Stomach, Via Natural or Artificial Opening Endoscopic (ICD-10-PCS; principal; 2020-08-03 07:53)
DX: K91.870 Postprocedural hematoma of a digestive system organ or structure following a digestive system procedure (principal); K94.23 Gastrostomy malfunction; E87.0 Hyperosmolality and hypernatremia; K59.00 Constipation, unspecified; R13.10 Dysphagia, unspecified; E87.6 Hypokalemia; K27.9 Peptic ulcer, site unspecified, unspecified as acute or chronic, without hemorrhage or perforation; I10 Essential (primary) hypertension; J44.9 Chronic obstructive pulmonary disease, unspecified; R53.81 Other malaise; Z86.718 Personal history of other venous thrombosis and embolism; F32.9 Major depressive disorder, single episode, unspecified; Z95.828 Presence of other vascular implants and grafts; Z79.82 Long term (current) use of aspirin; Z79.899 Other long term (current) drug therapy; F03.90 Unspecified dementia, unspecified severity, without behavioral disturbance, psychotic disturbance, mood disturbance, and anxiety; Z86.711 Personal history of pulmonary embolism; Z86.73 Personal history of transient ischemic attack (TIA), and cerebral infarction without residual deficits

== ENCOUNTER 2020-08-11 08:10 | Inpatient (IN) | payer OTHER ==
[~2020-08-11] VITALS: Ht 172.7 cm; Wt 64.4 kg
[~2020-08-11 08:10] MED LIST changes: +ASPI1CHW3 GT; +ELIQ5TAB GT; +OMEP-218 GT; +PEG1POW PEG
[2020-08-11] MEDS ORDERED: MOM30SS PO (08:35)
[2020-08-11] MEDS: OMEPRAZOLE 20 MG CAP PO SCH (09:00)
[2020-08-11] MEDS: ATORVASTATIN 20 MG TAB GT SCH (09:00)
[2020-08-11] MEDS: ASPIRIN 81 MG CHEW TABLET GT SCH (09:00)
[2020-08-11 10:19] LABS: BASO % 0.4 % (0.0-1.0); EOS # 0.3 10^3/uL (0.0-0.5); EOS % 3.3 % (0.0-3.0); HEMATOCRIT 39.7 % (42.0-52.0); HEMOGLOBIN 12.4 g/dl (13.5-17.5); LYMPH # 1.7 10^3/uL (1.5-5.0); MEAN CORPUSCULAR HEMOGLOBIN 28.2 pg (27.0-33.0); MEAN CORPUSCULAR HGB CONC 31.2 g/dl (32.0-36.5); MEAN CORPUSCULAR VOLUME 90.2 fl (80.0-96.0); MONO # 0.7 10^3/uL (0.0-0.8); NEUTROPHILS # 6.6 10^3/uL (1.5-8.5); NEUTROPHILS % 70.9 % (36.0-66.0); PLATELET COUNT, AUTOMATED 265 10^3/uL (150-450); WHITE BLOOD COUNT 9.3 10^3/uL (4.0-10.0)
--- NOTE | 2020-08-11 10:22 | REPVR ---
PROCEDURE INFORMATION: Exam: XR Chest, 1 View Exam date and time: 08/11/2020 10:14 AM Age: 60 years old Clinical indication: Other: Confusion; Additional info: Abdo, west pain TECHNIQUE: Imaging protocol: XR of the chest Views: 1 view. COMPARISON: CR Abdomen,Flat Upright,PA CHEST 04/14/2020 11:22 AM FINDINGS: Lungs: There is mildly increased bibasilar atelectasis and interstitial prominence, which could reflect edema. No focal consolidation. Pleural space: Unremarkable. No pleural effusion. No pneumothorax. Heart/Mediastinum: The cardiomediastinal silhouette is fairly stable in appearance. Bones/joints: Unremarkable. IMPRESSION: Mildly increased bibasilar atelectasis and interstitial prominence as compared with 04/14/20, could reflect edema. Electronically signed by: Christoph Arzola On 08/11/2020 10:22:37 AM
[2020-08-11] MEDS ORDERED: ISOVUE-370 76% 100ML VIAL As Ordered ONE (10:33)
[2020-08-11 10:43] LABS: ALBUMIN 2.6 GM/DL (3.2-5.2); ALT/SGPT 14 U/L (12-78); BILIRUBIN,DIRECT 0.2 MG/DL (0.0-0.2); BILIRUBIN,TOTAL 0.5 MG/DL (0.2-1.0); CK-MB VALUE MASS < 1.0 NG/ML (<3.6); CPK CREATINE PHOSPHOKINASE 42 U/L (39-308); LIPASE 60 U/L (73-393); MB/CK RELATIVE INDEX 2.38 (< OR =4); TOTAL PROTEIN 7.4 GM/DL (6.4-8.2); TROPONIN I < 0.02 NG/ML (< 0.10)
--- NOTE | 2020-08-11 11:12 | REPVR ---
PROCEDURE INFORMATION: Exam: CT Abdomen And Pelvis With Contrast Exam date and time: 08/11/2020 8:42 AM Age: 60 years old Clinical indication: Abdominal pain; Additional info: Abd pain - await bun/cr TECHNIQUE: Imaging protocol: Computed tomography of the abdomen and pelvis with intravenous contrast. Radiation optimization: All CT scans at this facility use at least one of these dose optimization techniques: automated exposure control; mA and/or kV adjustment per patient size (includes targeted exams where dose is matched to clinical indication); or iterative reconstruction. Contrast material: ISOVUE 370; Contrast volume: 100 ml; Contrast route: INTRAVENOUS (IV); COMPARISON: CT ABD/PEL W/IV ORAL CONTRAS 08/01/2020 6:51 AM FINDINGS: Tubes, catheters and devices: It appears that the PEG tube has been advanced, with tip and balloon now in the stomach. There is again abnormal soft tissue density along its tract. Previously, there was a hematoma adjacent to the balloon, probably anterior to the stomach. Presently along the right aspect of the tube, apparently anterior to the stomach or within its wall, is a lower density collection which also contains gas and has a mildly thickened wall, measuring up to approximately 5.8 cm transverse by 3.8 cm AP by 4.8 cm craniocaudad, which has the appearance of an abscess. Lungs: The lung bases again demonstrate emphysematous change and fibrosis with mildly increased patchy dependent airspace opacities. Liver: Normal. No mass. Gallbladder and bile ducts: No gallstones are evident, but ultrasound would be more sensitive. No gross biliary ductal dilatation. Pancreas: Normal. No ductal dilation. Spleen: Normal. No splenomegaly. Adrenals: Normal. No mass. Kidneys and ureters: Normal. No hydronephrosis. Stomach and bowel: Previously noted gastric wall thickening is decreased. The unopacified small bowel is not significantly distended to suggest obstruction. There is again apparent wall thickening of the distal sigmoid colon and rectum. Appendix: The appendix is not identified, but there are no inflammatory changes in its expected region. Intraperitoneal space: There is no free air. There is no significant free fluid. Vasculature: Coronary artery calcifications are again present. The abdominal aorta is nonaneurysmal. Atherosclerotic vascular calcifications are again present. An IVC filter is again present. Lymph nodes: Unremarkable. No enlarged lymph nodes. Urinary bladder: Unremarkable as visualized. Reproductive: Unremarkable as visualized. Bones/joints: Degenerative changes again involve the spine and hips. Soft tissues: See "Tubes, catheters and devices" finding. IMPRESSION: 1. PEG tube advanced since 08/01/20, with tip and balloon now in stomach. 2. Persistent abnormal soft tissue density along the tract of the PEG tube, previously with an adjacent hematoma, now with a lower density, mildly thick-walled collection containing gas to the right of the tube, apparently anterior to the stomach or within its wall, with the appearance of an abscess measuring up to 5.8 cm. Follow-up with oral contrast or upper GI series may be of benefit to confirm this is external to the stomach. 3. Decrease of previous gastric wall thickening. 4. Persistent apparent wall thickening of the distal sigmoid colon and rectum, suggesting a nonspecific proctocolitis. 5. Increased patchy bibasilar airspace opacities. Electronically signed by: Christoph Arzola On 08/11/2020 11:12:18 AM
[2020-08-11] MEDS ORDERED: PIPERACILLIN/TAZOBACTAM SOD 4.5 GM in D5W MINI-BAG PLUS 50 ML IV ONE (11:30)
[2020-08-11] MEDS ORDERED: MIRA3350 GT (11:49)
[2020-08-11] MEDS ORDERED: NS 1,000 ML IV ONE (12:30)
--- NOTE | 2020-08-11 13:13 | HPEPDOC ---
[facility] Medical History & Physical Date of Admission Aug 11, 2020 Date of Service: Aug 11, 2020 Attending Physician: Esme Morris MD History and Physical CHIEF COMPLAINT: Dislodged PEG tube HISTORY OF PRESENT ILLNESS: Patient is a 60-year-old male with past medical history of CVA, pulmonary embo lism with IVC filter placed, protein calorie malnutrition, dysphagia, dementia without behavioral disturbance, history of alcohol dependence, iron deficiency anemia, COPD, major depressive disorder, hypertension, aortic valve disorder was sent to the emergency room from [facility]) after concern for a dislodged G-tube. Patient is a poor historian due to dementia and much of his history was obtained from ER staff, prior records. On 07/31/20 patient was seen in our ER for dislodged G tube. Surgery (Dr. Quijano) placed back a 20 Chinese Alberto button, this was tested and noted to be flushing well, thereby giving the okay to use the gastrostomy tube. Patient was sent back to [facility] 08/01/20 due to concerns it wasn't functioning well again. At that time he was admitted, repeat CT showed percutaneous gastrostomy tube with a 5.6 x 4.2 by 4.9 cm hematoma surrounding the gastrostomy tube balloon. This was initially believed to be 2/2 to traumatic insertion and tube feedings were resumed. On 08/11/20 Patient underwent upper GI endoscopy for abnormal CT GI tract, continued abdominal pain, malfunctioning of gastrostomy tube. PEG was placed at that time next to the area of concern. Patient was discharged back to [facility] on 08/07/20 in improved condition. Today the patient returns for concerns of dislodged PEG tube, with continued abdominal discomfort and oozing from the prior open abdominal wound where the prior G tube was located. In the ER, VS were stable. All labs were unremarkable. Patient was at baseline, pleasantly confused and at times cooperative. AAOx0. Repeat CT abd: 1. PEG tube advanced since 08/01/20, with tip and balloon now in stomach, 2. persistent abnormal soft tissue density along the tract of the PEG tube, previously with an adjacent hematoma, now with a lower density, mildly thick-walled collection containing gas to the right of the tube, apparently anterior to the stomach or within its wall, with the appearance of an abscess measuring up to 5.8 cm. They also commented on increased patchy bibasilar airspace opacities. Patient had no complaints of SOB, chest pain and was saturating well on RA. Dr. Olivares with general surgery evaluated patient and suggested IR drainage with drainage tube placement of abscess and IV abx. Patient was admitted for abdominal wall abscess requiring US guided drainage with drain placement, IV abx. ROS: Unable to obtain due to patient's mental status/dementia PAST MEDICAL HISTORY: 1. History of CVA 2. pulmonary embolism with IVC filter placed 3. protein calorie malnutrition 4. dysphagia 5. dementia without behavioral disturbance 6. history of alcohol dependence 7. iron deficiency anemia 8. COPD 9. major depressive disorder 10. hypertension 11. aortic valve disorder 12. GERD PAST SURGICAL HISTORY: 1. G tube placement 2. PEG tube placement 08/11/20 3. IVC filter placement FAMILY HISTORY: Unable to obtain due to patient's mental status/dementia SOCIAL HISTORY: Unable to obtain due to patient's mental status/dementia ALLERGIES: Please see below. HOME MEDICATIONS: Please see below. PHYSICAL EXAMINATION: VS: Please see below CONSTITUTIONAL: No acute distress, resting comfortably in bed EYES: PERRLA, EOM intact HENT, MOUTH: Normocephalic, atraumatic, moist mucous membranes NECK: SUPPLE, no JVD, no lymphadenopathy, no carotid bruit CV: Regular rate and rhythm, S1S2 normal, no murmurs/rubs/gallops RESPIRATORY: Clear to auscultation bilaterally, no rales/rhonchi/wheezes GI: PEG tube in place, flushing well. adjacent to the right of existing peg is an open abdominal lesion, suppurative with yellow/pink fluid. BS positive in 4 quadrants, soft, mild abdominal tenderness to palpation of anterior abd wall, nondistended, no rebound or guarding, no organomegaly : Deferred MUSCULOSKELETAL: Normal ROM. No cyanosis, clubbing, swelling, joint deformity, extremity edema INTEGUMENTARY: Intact, no rashes, no lesions, no erythema. see above under GI NEUROLOGIC: No focal deficits PSYCHIATRIC: Confused, AAOx 0 LABORATORY DATA: Please see below MICROBIOLOGY: F/u wound culture from abscess F/u blood cultures IMAGING: CT abd/pelvis: 1. PEG tube advanced since 08/01/20, with tip and balloon now in stomach. 2. Persistent abnormal soft tissue density along the tract of the PEG tube, previously with an adjacent hematoma, now with a lower density, mildly thick-walled collection containing gas to the right of the tube, apparently anterior to the stomach or within its wall, with the appearance of an abscess measuring up to 5.8 cm. Follow-up with oral contrast or upper GI series may be of benefit to confirm this is external to the stomach. 3. Decrease of previous gastric wall thickening. 4. Persistent apparent wall thickening of the distal sigmoid colon and rectum, suggesting a nonspecific proctocolitis. 5. Increased patchy bibasilar airspace opacities. ASSESSMENT: 60-year-old male with past medical history of CVA, pulmonary embolism with IVC filter placed, protein calorie malnutrition, dysphagia, dementia without behavioral disturbance, history of alcohol dependence, iron deficiency anemia, COPD, major depressive disorder, hypertension, aortic valve disorder admitted for abdominal wall abscess requiring US guided drainage with drain placement, IV abx. PLAN: 1. Abdominal wall abscess likely 2/2 to previously displaced G tube -WBC wnl, afebrile, mild abdominal tenderness on exam -CT above -US guided drainage of abscess with drain placement to occur -C/w Zosyn IV, pain control -F/u daily labs, wound culture 2. Dysphagia s/p CVA -PEG tube in place per CT -Resume home diet of pureed, thin liquids with jevity 1.5 bolus 360 cc 4x/day -Monitor for signs/symptoms of aspiration 3. Dementia without behavioral disturbance/MDD -Believed to be at baseline -Not on home meds, redirect whenever possible 4. Protein calorie malnutrition -C/w diet above 5. Hx of CVA -No new focal deficits, baseline confusion -ASA, statin 6. Hx of PE, s/p IVC filter placement 2019 -Not on oral AC -SCD/teds 7. HTN. -Stable 8. Hx of constipation -C/w bowel regimen from home 9. GERD -PPI 10. DVT px -SCD/teds DISPOSITION: Patient is admitted under inpatient status. Plan is return to [facility] when medically cleared. Vital Signs Vital Signs Date Time Temp Pulse Resp B/P (MAP) Pulse Ox O2 Delivery O2 Flow Rate FiO2 08/11/20 11:18 82 08/11/20 08:37 97.6 18 158/83 (108) 98 Room Air Laboratory Data Labs 24H Laboratory Tests 2 08/11/20 09:48: Immature Granulocyte % (Auto) 0.4, Neutrophils (%) (Auto) 70.9H, Lymphocytes (%) (Auto) 18.0L, Monocytes (%) (Auto) 7.0H, Eosinophils (%) (Auto) 3.3H, Basophils (%) (Auto) 0.4, Neutrophils # (Auto) 6.6, Lymphocytes # (Auto) 1.7, Monocytes # (Auto) 0.7, Eosinophils # (Auto) 0.3, Basophils # (Auto) 0.0, Nucleated Red Blood Cells % (auto) 0.0, Total Bilirubin 0.5, Direct Bilirubin 0.2, Aspartate Amino Transf (AST/SGOT) 14, Alanine Aminotransferase (ALT/SGPT) 14, Alkaline Phosphatase 94, Total Creatine Kinase 42, Creatine Kinase MB < 1.0, Creatine Kinase MB Relative Index 2.38, Troponin I < 0.02, Total Protein 7.4, Albumin 2.6L, Albumin/Globulin Ratio 0.5, Lipase 60L 08/11/20 09:57: POC Glucose (Misc Panel) 87, POC Sodium (Misc Panel) 140, POC Potassium (Misc Panel) 4.2, POC Chloride (Misc Panel) 103, POC Total CO2 (Misc Panel) 25.0, POC Blood Urea Nitrogen (Misc Panel 8, POC Ionized Calcium (Misc Panel) 5.1, POC Creatinine (Misc Panel) 0.6, POC Hematocrit (Misc Panel) 38.0 08/11/20 10:10: POC Lactate (Misc Panel) 0.98 CBC/BMP Laboratory Tests 08/11/20 09:48 Microbiology Microbiology 08/11/20 Wound Culture, Received Pending 08/11/20 Blood Culture, Received Pending Home Medications Scheduled Aspirin (Aspirin) 81 Mg Tab.chew, 81 MG GT DAILY Atorvastatin Calcium (Atorvastatin Calcium) 40 Mg Tablet, 40 MG GT DAILY Omeprazole (Omeprazole) 20 Mg Capsule.dr, 20 MG GT DAILY Polyethylene Glycol 3350 (Miralax) 119 Gm Powder, 17 GM GT BID dilute in 8 ounces of water or juice Scheduled PRN Acetaminophen (Feverall) 650 Mg Supp.rect, 650 MG NV Q4H PRN for PAIN / FEVER Acetaminophen (Tylenol) 325 Mg Tablet, 650 MG GT Q4H PRN for PAIN / FEVER Bisacodyl (Bisacodyl) 10 Mg Supp.rect, 10 MG NV DAILY PRN for CONSTIPATION Milk Of Magnesia (Milk of Magnesia) 2,400 Mg/10 Ml Oral.susp, 10 ML PO for CONSTIPATION Sodium Phosphate,Kimball-Dibasic (Enema) 133 Ml Enema, 1 GABRIEL NV DAILY PRN for CONSTIPATION Allergies Coded Allergies: No Known Drug Allergies (Verified Allergy, Unknown, 02/09/20) A-FIB/CHADSVASC A-FIB History Current/History of A-Fib/PAF?: No Current PO Anticoag Therapy: No Age/Risk Factor Scoring CHADSVASC: CHADSVASC Response (Comments) Value Age Risk Factor Age < 65 years old 0 Gender Risk Factor Male 0 Hx of CHF No 0 Hx of HTN Yes 1 Hx of Stroke/TIA/or VTE Yes 2 Hx of Diabetes No 0 Hx of Vascular Disease No 0 Total 3 Treatment Treatment ordered: NONE Other anticoagulant ordered: scd Current Medications Current Medications Medications (Trade) Dose Ordered Sig/Keesha Route PRN Reason Start Time Stop Time Status Last Admin Dose Admin Acetaminophen (Tylenol Tab) 650 mg Q4H PRN GT PAIN / FEVER 08/11/20 13:15 Aspirin (Aspirin Chewable) 81 mg DAILY GT 08/11/20 09:00 Aspirin (Aspirin Chewable) 81 mg DAILY GT 08/12/20 09:00 08/11/20 13:21 DC Atorvastatin Calcium (Lipitor) 40 mg DAILY GT 08/11/20 09:00 Bisacodyl (Dulcolax Suppository) 10 mg DAILY PRN NV CONSTIPATION 08/11/20 13:15 Home Med (Med Rec Complete!) ASDIRECTED XX 08/11/20 12:00 08/11/20 11:50 DC Omeprazole (PriLOSEC) 20 mg DAILY PO 08/11/20 09:00 Piperacillin Sod/ Tazobactam Sod 3.375 gm/Dextrose 50 ml @ 50 mls/hr Q6H IV 08/11/20 13:15 UNV Polyethylene Glycol (Miralax) 1 pkt BID GT 08/11/20 21:00 Esme Morris MD Aug 11, 2020 13:13
[2020-08-11] MEDS ORDERED: BISACODYL 10 MG SUPP PR PRN (13:15)
[2020-08-11] MEDS ORDERED: MOM 30ML SUSPENSION UDC PO PRN (15:15)
[2020-08-11] MEDS ORDERED: FLEET ENEMA PR PRN (15:15)
[2020-08-11] MEDS ORDERED: ACETAMINOPHEN 650 MG SUPP PR PRN (15:15)
[2020-08-11] MEDS ORDERED: LIDOCAINE 1% MDV 20ML VIAL As Ordered ONE (15:19)
[2020-08-11] MEDS ORDERED: SODIUM BICARBONATE 8.4% INJ 50MEQ 50 ML VIAL As Ordered ONE (15:25)
--- NOTE | 2020-08-11 18:06 | ECGEPIP ---
[facility] - ED Test Date: 2020-08-11 Pat Name: DELIA RENNER Department: Room: 0103 Gender: Male Content Strategy Lead: : 1960 Requested By: Armond Wilson Order Number: [id number] Reading MD: Tevin Kay Measurements Intervals Meridian Rate: 78 P: 62 GA: 148 QRS: 34 QRSD: 90 T: 74 QT: 375 QTc: 427 Interpretive Statements SINUS RHYTHM T wave abnormality normalized when compared to tracing done 02-09-20 Electronically Signed on 08-11-2020 18:05:47 EDT by Tevin Kay
[2020-08-11] MEDS: PIPERACILLIN/TAZOBACTAM SOD 3.375 GM in D5W MINI-BAG PLUS 50 ML IV SCH (18:29)
[2020-08-11 20:00] VITALS: BP 132/88
[2020-08-11] MEDS: MIRALAX *UNIT DOSE* 17GM PACKET GT SCH (20:56)
[2020-08-11] MEDS: ACETAMINOPHEN TAB 650MG DOSE (2X325MG) GT PRN (20:57)
[2020-08-12] MEDS: PIPERACILLIN/TAZOBACTAM SOD 3.375 GM in D5W MINI-BAG PLUS 50 ML IV SCH ×5 (00:19→23:47)
[2020-08-12 06:03] VITALS: BP 130/79
[2020-08-12 07:57] LABS: HEMATOCRIT 39.7 % (42.0-52.0); HEMOGLOBIN 12.6 g/dl (13.5-17.5); MEAN CORPUSCULAR HEMOGLOBIN 28.4 pg (27.0-33.0); MEAN CORPUSCULAR HGB CONC 31.7 g/dl (32.0-36.5); MEAN CORPUSCULAR VOLUME 89.6 fl (80.0-96.0); PLATELET COUNT, AUTOMATED 364 10^3/uL (150-450); RED BLOOD COUNT 4.43 10^6/uL (4.30-6.10); WHITE BLOOD COUNT 7.3 10^3/uL (4.0-10.0)
[2020-08-12] MEDS: ASPIRIN 81 MG CHEW TABLET GT SCH (08:14)
[2020-08-12] MEDS: ATORVASTATIN 20 MG TAB GT SCH (08:14)
[2020-08-12] MEDS: OMEPRAZOLE 20 MG CAP PO SCH (08:14)
[2020-08-12] MEDS: MIRALAX *UNIT DOSE* 17GM PACKET GT SCH ×2 (08:14→20:28)
[2020-08-12 08:16] LABS: ALBUMIN 2.3 GM/DL (3.2-5.2); ALT/SGPT 14 U/L (12-78); BILIRUBIN,TOTAL 0.6 MG/DL (0.2-1.0); BLOOD UREA NITROGEN 9 MG/DL (7-18); CALCIUM LEVEL 9.2 MG/DL (8.8-10.2); CARBON DIOXIDE LEVEL 25 MEQ/L (21-32); CHLORIDE LEVEL 107 MEQ/L (98-107); CREATININE FOR GFR 0.63 MG/DL (0.70-1.30); GLOMERULAR FILTRATION RATE > 60.0 (>49); GLUCOSE, FASTING 75 MG/DL (70-100); POTASSIUM SERUM 4.4 MEQ/L (3.5-5.1); SODIUM LEVEL 140 MEQ/L (136-145); TOTAL PROTEIN 6.9 GM/DL (6.4-8.2)
--- NOTE | 2020-08-12 08:58 | IPNPDOC ---
Text Note Date of Service The patient was seen on 08/12/20. NOTE No acute events overnight. Due to dementia I was unable to get much of a history from him. He denies abd pains, but thinks that his drain has been in for 2 weeks. VSSAF Drain - 50cc purulent fluid NAD abd - soft, TTP appropriate, dressings c/d/i, drain in place with purulent output labs - below A) 60y/o male with an abd wall abscess POD#1 s/p IR drain placement P) continue with tube feeds drain to gravity plan on d/c home with drain once cleared by medicine, and then can follow up with Dr. Olivares in a week for drain removal. Hermes Pena DO VS,Camacho, I+O VS, Camacho, I+O Laboratory Tests 08/11/20 09:48 08/12/20 07:04 Vital Signs Date Time Temp Pulse Resp B/P (MAP) Pulse Ox O2 Delivery O2 Flow Rate FiO2 08/12/20 06:03 98.5 82 20 130/79 (96) 100 Room Air I&O- Last 24 Hours up to 6 AM0 08/12/20 06:00 Intake Total 810 ml Output Total 0 ml Balance 810 ml DEYSI PENA DO Aug 12, 2020 08:58
[2020-08-12] MEDS ORDERED: ASPIRIN 81 MG CHEW TABLET GT SCH (09:00)
[2020-08-12 14:00] VITALS: BP 107/74
--- NOTE | 2020-08-12 15:13 | IPNPDOC ---
Date Seen The patient was seen on 08/12/20. Progress Note SUBJECTIVE: Pleasantly confused, no acute events overnight. 50 mL of purulent, bloody fluid in abdominal abscess drain bag. Discussed with Dr. Pena (surgery). No s/s of pain or worsening infection, awaiting culture results. OBJECTIVE PHYSICAL EXAMINATION: VS: Please see below CONSTITUTIONAL: confused, no acute distress, resting comfortably in bed EYES: PERRLA, EOM intact HENT, MOUTH: Normocephalic, atraumatic, moist mucous membranes NECK: SUPPLE, no JVD, no lymphadenopathy, no carotid bruit CV: Regular rate and rhythm, S1S2 normal, no murmurs/rubs/gallops RESPIRATORY: Clear to auscultation bilaterally, no rales/rhonchi/wheezes GI: PEG tube in place, flushing well. adjacent to the right of existing peg is an open abdominal lesion with drain draining to bag, suppurative with red/yellow fluid. BS positive in 4 quadrants, soft, no abdominal tenderness to palpation of anterior abd wall, nondistended, no rebound or guarding, no organomegaly : Deferred MUSCULOSKELETAL: Normal ROM. No cyanosis, clubbing, swelling, joint deformity, extremity edema INTEGUMENTARY: Intact, no rashes, no lesions, no erythema. NEUROLOGIC: No focal deficits PSYCHIATRIC: Confused, AAOx 0 LABORATORY DATA: Please see below MICROBIOLOGY: F/u wound culture from abscess F/u blood cultures IMAGING: CT abd/pelvis: 1. PEG tube advanced since 08/01/20, with tip and balloon now in stomach. 2. Persistent abnormal soft tissue density along the tract of the PEG tube, previously with an adjacent hematoma, now with a lower density, mildly thick-walled collection containing gas to the right of the tube, apparently anterior to the stomach or within its wall, with the appearance of an abscess measuring up to 5.8 cm. Follow-up with oral contrast or upper GI series may be of benefit to confirm this is external to the stomach. 3. Decrease of previous gastric wall thickening. 4. Persistent apparent wall thickening of the distal sigmoid colon and rectum, suggesting a nonspecific proctocolitis. 5. Increased patchy bibasilar airspace opacities. ASSESSMENT: 60-year-old male with past medical history of CVA, pulmonary embolism with IVC filter placed, protein calorie malnutrition, dysphagia, dementia without behavioral disturbance, history of alcohol dependence, iron deficiency anemia, COPD, major depressive disorder, hypertension, aortic valve disorder admitted for abdominal wall abscess requiring US guided drainage with drain placement, IV abx. PLAN: 1. Abdominal wall abscess likely 2/2 to previously displaced G tube, POD #1 for abscess drainage -WBC wnl, afebrile, no abd pain. 50 mL bloody/purulent fluid in bag of drain -C/w Zosyn IV -F/u daily labs, wound cultures 2. Dysphagia s/p CVA -PEG tube in place per CT -Resume home diet of pureed, thin liquids with jevity 1.5 bolus 360 cc 4x/day -Monitor for signs/symptoms of aspiration 3. Dementia without behavioral disturbance/MDD -Believed to be at baseline -Not on home meds, redirect whenever possible 4. Protein calorie malnutrition -C/w diet above 5. Hx of CVA -No new focal deficits, baseline confusion -ASA, statin 6. Hx of PE, s/p IVC filter placement 2019 -Not on oral AC -SCD/teds 7. HTN. -Stable 8. Hx of constipation -C/w bowel regimen from home 9. GERD -PPI 10. DVT px -SCD/teds DISPOSITION: Patient is admitted under inpatient status. Plan is return to [facility] when we have culture results. [facility]&O[facility] Vital Signs/I&O Vital Signs Date Time Temp Pulse Resp B/P (MAP) Pulse Ox O2 Delivery O2 Flow Rate FiO2 08/12/20 06:03 98.5 82 20 130/79 (96) 100 Room Air I&O- Last 24 Hours up to 6 AM 08/12/20 06:00 Intake Total 810 ml Output Total 0 ml Balance 810 ml Laboratory Data 24H LABS Laboratory Tests 2 08/12/20 07:04: Nucleated Red Blood Cells % (auto) 0.0, Anion Gap 8, Glomerular Filtration Rate > 60.0, Calcium Level 9.2, Total Bilirubin 0.6, Aspartate Amino Transf (AST/SGOT) 13, Alanine Aminotransferase (ALT/SGPT) 14, Alkaline Phosphatase 84, Total Protein 6.9, Albumin 2.3L, Albumin/Globulin Ratio 0.5 CBC/BMP Laboratory Tests 08/12/20 07:04 Microbiology Microbiology 08/11/20 Gram Stain - Final, Resulted 08/11/20 Abscess Culture, Resulted Pending 08/11/20 Anaerobic Culture, Resulted Pending 08/11/20 Wound Culture, Received Pending 08/11/20 Blood Culture - Preliminary, Resulted No growth after 24 hours . All specim... Current Medications Current Medications Medications (Trade) Dose Ordered Sig/Keesha Route PRN Reason Start Time Stop Time Status Last Admin Dose Admin Acetaminophen (Tylenol Suppository) 650 mg Q4H PRN TN PAIN / FEVER 08/11/20 15:15 Acetaminophen (Tylenol Tab) 650 mg Q4H PRN GT PAIN / FEVER 08/11/20 13:15 08/11/20 20:57 Aspirin (Aspirin Chewable) 81 mg DAILY GT 08/11/20 09:00 08/12/20 08:14 Aspirin (Aspirin Chewable) 81 mg DAILY GT 08/12/20 09:00 08/11/20 13:21 DC Atorvastatin Calcium (Lipitor) 40 mg DAILY GT 08/11/20 09:00 08/12/20 08:14 Bisacodyl (Dulcolax Suppository) 10 mg DAILY PRN TN CONSTIPATION 08/11/20 13:15 Home Med (Med Rec Complete!) ASDIRECTED XX 08/11/20 12:00 08/11/20 11:50 DC Magnesium Hydroxide (Milk Of Magnesia) 10 ml DAILY PRN PO CONSTIPATION 08/11/20 15:15 Omeprazole (PriLOSEC) 20 mg DAILY PO 08/11/20 09:00 08/12/20 08:14 Piperacillin Sod/ Tazobactam Sod 3.375 gm/Dextrose 50 ml @ 50 mls/hr Q6H IV 08/11/20 18:00 08/12/20 12:24 Polyethylene Glycol (Miralax) 1 pkt BID GT 08/11/20 21:00 08/12/20 08:14 Sodium Biphosphate/ Sodium Phosphate (Fleet Enema) 1 ea DAILY PRN TN CONSTIPATION 08/11/20 15:15 Allergies Coded Allergies: No Known Drug Allergies (Verified Allergy, Unknown, 02/09/20) Esme Morris MD Aug 12, 2020 15:12
[2020-08-12 20:00] VITALS: BP 104/68
[2020-08-12] MEDS: ACETAMINOPHEN TAB 650MG DOSE (2X325MG) GT PRN (20:28)
[2020-08-13] MEDS: ACETAMINOPHEN TAB 650MG DOSE (2X325MG) GT PRN ×4 (00:21→23:46)
[2020-08-13] MEDS: PIPERACILLIN/TAZOBACTAM SOD 3.375 GM in D5W MINI-BAG PLUS 50 ML IV SCH ×4 (05:08→23:46)
[2020-08-13 05:15] VITALS: BP 118/72
[2020-08-13 08:02] LABS: HEMATOCRIT 35.1 % (42.0-52.0); HEMOGLOBIN 11.5 g/dl (13.5-17.5); MEAN CORPUSCULAR HEMOGLOBIN 28.8 pg (27.0-33.0); MEAN CORPUSCULAR HGB CONC 32.8 g/dl (32.0-36.5); MEAN CORPUSCULAR VOLUME 87.8 fl (80.0-96.0); PLATELET COUNT, AUTOMATED 421 10^3/uL (150-450)
[2020-08-13] MEDS: MIRALAX *UNIT DOSE* 17GM PACKET GT SCH ×2 (08:27→19:32)
[2020-08-13] MEDS: OMEPRAZOLE 20 MG CAP PO SCH (08:27)
[2020-08-13] MEDS: ATORVASTATIN 20 MG TAB GT SCH (08:28)
[2020-08-13] MEDS: ASPIRIN 81 MG CHEW TABLET GT SCH (08:28)
[2020-08-13 08:35] LABS: ALBUMIN 2.3 GM/DL (3.2-5.2); ALT/SGPT 12 U/L (12-78); BILIRUBIN,TOTAL 0.5 MG/DL (0.2-1.0); BLOOD UREA NITROGEN 9 MG/DL (7-18); CALCIUM LEVEL 9.4 MG/DL (8.8-10.2); CARBON DIOXIDE LEVEL 26 MEQ/L (21-32); CHLORIDE LEVEL 104 MEQ/L (98-107); GLOMERULAR FILTRATION RATE > 60.0 (>49); GLUCOSE, FASTING 87 MG/DL (70-100); POTASSIUM SERUM 4.2 MEQ/L (3.5-5.1); SODIUM LEVEL 136 MEQ/L (136-145); TOTAL PROTEIN 6.7 GM/DL (6.4-8.2)
--- NOTE | 2020-08-13 12:37 | IPNPDOC ---
Date Seen The patient was seen on 08/13/20. Progress Note SUBJECTIVE: No complaints overnight. Approx 35 mL of purulent fluid in abdominal abscess drain bag. Abscess fluid Cx: E. coli, Staph Aureus. Culture sensitivities for E. coli, not Staph aureus available yet-will need both before discharge. Patient was supposed to be discharged to home from long-term facility he came to us from, so the plan is hopeful for patient being d/eduard home from our facility now. Will need to confirm plan with SOHAN WOO in AM. Currently no s/s of pain or worsening infection. OBJECTIVE PHYSICAL EXAMINATION: VS: Please see below CONSTITUTIONAL: pleasantly confused, no acute distress, resting comfortably in bed EYES: PERRLA, EOM intact HENT, MOUTH: Normocephalic, atraumatic, moist mucous membranes NECK: SUPPLE, no JVD, no lymphadenopathy, no carotid bruit CV: Regular rate and rhythm, S1S2 normal, no murmurs/rubs/gallops RESPIRATORY: Clear to auscultation bilaterally, no rales/rhonchi/wheezes GI: PEG tube in place, flushing well. adjacent to the right of existing peg is an open abdominal lesion with drain draining to bag, suppurative with purulent fluid. BS positive in 4 quadrants, soft, no abdominal tenderness to palpation of anterior abd wall, nondistended, no rebound or guarding, no organomegaly : Deferred MUSCULOSKELETAL: Normal ROM. No cyanosis, clubbing, swelling, joint deformity, extremity edema INTEGUMENTARY: Intact, no rashes, no lesions, no erythema. NEUROLOGIC: No focal deficits PSYCHIATRIC: Confused, AAOx 0 LABORATORY DATA: Please see below MICROBIOLOGY: Culture from abscess fluid (collected from when drain was placed): E. coli, staph aureus. Sensitivities pending for Staph aureus Wound culture from draining abd wall ER: E. coli, MRSA blood cultures x 2 sets: NG IMAGING: CT abd/pelvis: 1. PEG tube advanced since 08/01/20, with tip and balloon now in stomach. 2. Persistent abnormal soft tissue density along the tract of the PEG tube, previously with an adjacent hematoma, now with a lower density, mildly thick-walled collection containing gas to the right of the tube, apparently anterior to the stomach or within its wall, with the appearance of an abscess measuring up to 5.8 cm. Follow-up with oral contrast or upper GI series may be of benefit to confirm this is external to the stomach. 3. Decrease of previous gastric wall thickening. 4. Persistent apparent wall thickening of the distal sigmoid colon and rectum, suggesting a nonspecific proctocolitis. 5. Increased patchy bibasilar airspace opacities. ASSESSMENT: 60-year-old male with past medical history of CVA, pulmonary embolism with IVC filter placed, protein calorie malnutrition, dysphagia, dementia without behavioral disturbance, history of alcohol dependence, iron deficiency anemia, COPD, major depressive disorder, hypertension, aortic valve disorder admitted for abdominal wall abscess requiring US guided drainage with drain placement, IV abx. PLAN: 1. Abdominal wall abscess likely 2/2 to previously displaced G tube, 08/11/20 went for abscess drainage and had abscess drain placed -WBC wnl, afebrile, no abd pain. 35 mL bloody/purulent fluid in bag of drain -C/w Zosyn IV for now. When get the final culture sensitivities, tailor abx. -F/u daily labs 2. Dysphagia s/p CVA -PEG tube in place per CT -Resumed home diet of pureed, thin liquids with jevity 1.5 bolus 360 cc 4x/day -Monitor for signs/symptoms of aspiration 3. Dementia without behavioral disturbance/MDD -Believed to be at baseline -Restarted all home meds 4. Protein calorie malnutrition -C/w diet above 5. Hx of CVA -No new focal deficits, baseline confusion -ASA, statin 6. Hx of PE, s/p IVC filter placement 2019 -Not on oral AC -SCD/teds 7. HTN. -Stable 8. Hx of constipation -C/w bowel regimen from home 9. GERD -PPI 10. DVT px -SCD/teds DISPOSITION: Patient is admitted under inpatient status. Plan is possibly to return home vs. back to [facility] when we have culture results. His has been in this weekend learning how to drain abscess bag, etc. Will tb with PFS, SW in AM. Will need f/u with surgery in 1 week and PCP 1-2 weeks after discharge. VS, I&O, 24H, Fishbone Vital Signs/I&O Vital Signs Date Time Temp Pulse Resp B/P (MAP) Pulse Ox O2 Delivery O2 Flow Rate FiO2 08/13/20 05:15 98.6 82 20 118/72 (87) 97 Room Air I&O- Last 24 Hours up to 6 AM 08/13/20 06:00 Intake Total 2110 ml Output Total 50 ml Balance 2060 ml Laboratory Data 24H LABS Laboratory Tests 2 08/13/20 07:20: Nucleated Red Blood Cells % (auto) 0.0, Anion Gap 6L, Glomerular Filtration Rate > 60.0, Calcium Level 9.4, Total Bilirubin 0.5, Aspartate Amino Transf (AST/SGOT) 11, Alanine Aminotransferase (ALT/SGPT) 12, Alkaline Phosphatase 78, Total Protein 6.7, Albumin 2.3L, Albumin/Globulin Ratio 0.5 CBC/BMP Laboratory Tests 08/13/20 07:20 Microbiology Microbiology 08/11/20 Gram Stain - Final, Resulted 08/11/20 Abscess Culture - Preliminary, Resulted Escherichia Coli Staphylococcus Aureus 08/11/20 Anaerobic Culture, Resulted Pending 08/11/20 Wound Culture - Preliminary, Resulted Escherichia Coli Staph.aureus Methicillin Resis 08/11/20 Blood Culture - Preliminary, Resulted No Growth after 48 hours. All Specime... Current Medications Current Medications Medications (Trade) Dose Ordered Sig/Keesha Route PRN Reason Start Time Stop Time Status Last Admin Dose Admin Acetaminophen (Tylenol Suppository) 650 mg Q4H PRN [place] PAIN / FEVER 08/11/20 15:15 Acetaminophen (Tylenol Tab) 650 mg Q4H PRN GT PAIN / FEVER 08/11/20 13:15 08/13/20 05:08 Aspirin (Aspirin Chewable) 81 mg DAILY GT 08/11/20 09:00 08/13/20 08:28 Aspirin (Aspirin Chewable) 81 mg DAILY GT 08/12/20 09:00 08/11/20 13:21 DC Atorvastatin Calcium (Lipitor) 40 mg DAILY GT 08/11/20 09:00 08/13/20 08:28 Bisacodyl (Dulcolax Suppository) 10 mg DAILY PRN HI CONSTIPATION 08/11/20 13:15 Home Med (Med Rec Complete!) ASDIRECTED XX 08/11/20 12:00 08/11/20 11:50 DC Magnesium Hydroxide (Milk Of Magnesia) 10 ml DAILY PRN PO CONSTIPATION 08/11/20 15:15 Omeprazole (PriLOSEC) 20 mg DAILY PO 08/11/20 09:00 08/13/20 08:27 Piperacillin Sod/ Tazobactam Sod 3.375 gm/Dextrose 50 ml @ 50 mls/hr Q6H IV 08/11/20 18:00 08/13/20 12:13 Polyethylene Glycol (Miralax) 1 pkt BID GT 08/11/20 21:00 08/13/20 08:27 Sodium Biphosphate/ Sodium Phosphate (Fleet Enema) 1 ea DAILY PRN HI CONSTIPATION 08/11/20 15:15 Allergies Coded Allergies: No Known Drug Allergies (Verified Allergy, Unknown, 02/09/20) Esme Morris MD Aug 13, 2020 12:37
[2020-08-13 14:00] VITALS: BP 106/66
[2020-08-13 22:00] VITALS: BP 106/66
[2020-08-14 06:00] VITALS: BP 101/66
[2020-08-14] MEDS: PIPERACILLIN/TAZOBACTAM SOD 3.375 GM in D5W MINI-BAG PLUS 50 ML IV SCH ×2 (06:12→12:14)
[2020-08-14 06:53] LABS: HEMOGLOBIN 11.2 g/dl (13.5-17.5); MEAN CORPUSCULAR VOLUME 87.5 fl (80.0-96.0); PLATELET COUNT, AUTOMATED 428 10^3/uL (150-450); WHITE BLOOD COUNT 5.6 10^3/uL (4.0-10.0)
[2020-08-14 07:12] LABS: ALBUMIN 2.4 GM/DL (3.2-5.2); ALT/SGPT 13 U/L (12-78); BILIRUBIN,TOTAL 0.4 MG/DL (0.2-1.0); BLOOD UREA NITROGEN 9 MG/DL (7-18); CALCIUM LEVEL 9.2 MG/DL (8.8-10.2); CARBON DIOXIDE LEVEL 26 MEQ/L (21-32); CHLORIDE LEVEL 106 MEQ/L (98-107); CREATININE FOR GFR 0.58 MG/DL (0.70-1.30); GLOMERULAR FILTRATION RATE > 60.0 (>49); GLUCOSE, FASTING 88 MG/DL (70-100); POTASSIUM SERUM 4.2 MEQ/L (3.5-5.1); SODIUM LEVEL 138 MEQ/L (136-145); TOTAL PROTEIN 6.8 GM/DL (6.4-8.2)
[2020-08-14] MEDS: MIRALAX *UNIT DOSE* 17GM PACKET GT SCH ×2 (08:14→22:00)
[2020-08-14] MEDS: ATORVASTATIN 20 MG TAB GT SCH (08:14)
[2020-08-14] MEDS: ASPIRIN 81 MG CHEW TABLET GT SCH (08:14)
[2020-08-14] MEDS: OMEPRAZOLE 20 MG CAP PO SCH (08:14)
[2020-08-14 14:00] VITALS: BP 101/66
--- NOTE | 2020-08-14 14:46 | IPNPDOC ---
Date Seen The patient was seen on 08/14/20. Progress Note SUBJECTIVE: <10 mL of purulent drainage in abdominal abscess drain bag. Abscess fluid Cx: E. coli, MRSA, Strep oralis and E. faecalis. Discussed with clinical pharmacy: Augmentin (to cover anaerobics too while cx pending) and Bactrim PO, D/c zosyn. PT: recommending d/c back to skilled facility; however, patient's would like to take patient home. PFS aware; however, concern remains about how much care patient will require. They are to meet with and further discuss. Currently no s/s of pain or worsening infection. OBJECTIVE PHYSICAL EXAMINATION: VS: Please see below CONSTITUTIONAL: pleasantly confused, no acute distress, resting comfortably in bed EYES: PERRLA, EOM intact HENT, MOUTH: Normocephalic, atraumatic, moist mucous membranes NECK: SUPPLE, no JVD, no lymphadenopathy, no carotid bruit CV: Regular rate and rhythm, S1S2 normal, no murmurs/rubs/gallops RESPIRATORY: Clear to auscultation bilaterally, no rales/rhonchi/wheezes GI: PEG tube in place, flushing well. To the right of PEG, open abdominal wall lesion where prior tube was, slight fouls smell. adjacent to the right of old peg site is an drain draining to bag, suppurative with purulent fluid. BS positive in 4 quadrants, soft, no abdominal tenderness to palpation of anterior abd wall, nondistended, no rebound or guarding, no organomegaly : Deferred MUSCULOSKELETAL: Normal ROM. No cyanosis, clubbing, swelling, joint deformity, extremity edema INTEGUMENTARY: Intact, no rashes, no lesions, no erythema. NEUROLOGIC: No focal deficits PSYCHIATRIC: Confused, AAOx 0 LABORATORY DATA: Please see below MICROBIOLOGY: Culture from abscess fluid (collected from when drain was placed): E. coli, MRSA, Strep oralis, E. faecalis. Sensitivities in EMR. anaerobic cx still pending Wound culture from draining open abd wall where prior PEG was, taken in ER: E. coli, MRSA, Strep oralis, E. faecalis Blood cultures x 2 sets: NG IMAGING: CT abd/pelvis: 1. PEG tube advanced since 08/01/20, with tip and balloon now in stomach. 2. Persistent abnormal soft tissue density along the tract of the PEG tube, previously with an adjacent hematoma, now with a lower density, mildly thick-walled collection containing gas to the right of the tube, apparently anterior to the stomach or within its wall, with the appearance of an abscess measuring up to 5.8 cm. Follow-up with oral contrast or upper GI series may be of benefit to confirm this is external to the stomach. 3. Decrease of previous gastric wall thickening. 4. Persistent apparent wall thickening of the distal sigmoid colon and rectum, suggesting a nonspecific proctocolitis. 5. Increased patchy bibasilar airspace opacities. ASSESSMENT: 60-year-old male with past medical history of CVA, pulmonary embolism with IVC filter placed, protein calorie malnutrition, dysphagia, dementia without behavioral disturbance, history of alcohol dependence, iron deficiency anemia, COPD, major depressive disorder, hypertension, aortic valve disorder admitted for abdominal wall abscess requiring US guided drainage with drain placement, IV abx. PLAN: 1. Abdominal wall abscess likely 2/2 to previously displaced G tube, 08/11/20 went for abscess drainage and had abscess drain placed -WBC wnl, afebrile, no abd pain. <10 mL bloody/purulent fluid in bag of drain- decreased from yesterday -Abscess cx: E. coli, MRSA, Strep oralis, E. faecalis. Sensitivities in chair. Awaiting anaerobic cx results -Discussed with clinical pharmacy: starting PO augmentin and bactrim today. D/c Zosyn. -F/u daily labs -Per surgery, keep abdominal abscess drain in and to follow up in office this week if discharged home or back to [facility]. If still here, have surgery see again to take out possibly. 2. Dysphagia s/p CVA -PEG tube in place per CT -Resumed home diet of pureed, thin liquids with jevity 1.5 bolus 360 cc 4x/day -Monitor for signs/symptoms of aspiration 3. Dementia without behavioral disturbance/MDD -Believed to be at baseline 4. Protein calorie malnutrition -C/w diet above 5. Hx of CVA -No new focal deficits, baseline confusion -ASA, statin 6. Hx of PE, s/p IVC filter placement 2019 -Not on oral AC -SCD/teds 7. HTN. -Stable 8. Hx of constipation -C/w bowel regimen from home 9. GERD -PPI 10. DVT px -SCD/teds DISPOSITION: Patient is admitted under inpatient status. Plan is possibly to return home vs. back to [facility] . PFS, SW aware and will TB with . Will need f/u with surgery this week (either inpatient or outpatient to remove abscess drain- they did not place it but agreed to remove it) and PCP 1-2 weeks after d ischarge. VS, I&O, 24H, Fishbone Vital Signs/I&O Vital Signs Date Time Temp Pulse Resp B/P (MAP) Pulse Ox O2 Delivery O2 Flow Rate FiO2 08/14/20 06:00 98.0 98 18 101/66 (78) 97 Room Air I&O- Last 24 Hours up to 6 AM 08/14/20 05:59 Intake Total 790 ml Output Total 0 ml Balance 790 ml Laboratory Data 24H LABS Laboratory Tests 2 08/14/20 06:26: Nucleated Red Blood Cells % (auto) 0.0, Anion Gap 6L, Glomerular Filtration Rate > 60.0, Calcium Level 9.2, Total Bilirubin 0.4, Aspartate Amino Transf (AST/SGOT) 13, Alanine Aminotransferase (ALT/SGPT) 13, Alkaline Phosphatase 78, Total Protein 6.8, Albumin 2.4L, Albumin/Globulin Ratio 0.5 CBC/BMP Laboratory Tests 08/14/20 06:26 Microbiology Microbiology 08/11/20 Gram Stain - Final, Resulted 08/11/20 Abscess Culture - Final, Resulted Escherichia Coli Staph.aureus Methicillin Resis Enterococcus Faecalis Streptococcus Oralis 08/11/20 Anaerobic Culture, Resulted Pending 08/11/20 Wound Culture - Preliminary, Resulted Escherichia Coli Staph.aureus Methicillin Resis Enterococcus Faecalis Streptococcus Oralis 08/11/20 Blood Culture - Preliminary, Resulted No Growth after 72 hours. All specime... Current Medications Current Medications Medications (Trade) Dose Ordered Sig/Keesha Route PRN Reason Start Time Stop Time Status Last Admin Dose Admin Acetaminophen (Tylenol Suppository) 650 mg Q4H PRN DC PAIN / FEVER 08/11/20 15:15 Acetaminophen (Tylenol Tab) 650 mg Q4H PRN GT PAIN / FEVER 08/11/20 13:15 08/13/20 23:46 Aspirin (Aspirin Chewable) 81 mg DAILY GT 08/11/20 09:00 08/14/20 08:14 Aspirin (Aspirin Chewable) 81 mg DAILY GT 08/12/20 09:00 08/11/20 13:21 DC Atorvastatin Calcium (Lipitor) 40 mg DAILY GT 08/11/20 09:00 08/14/20 08:14 Bisacodyl (Dulcolax Suppository) 10 mg DAILY PRN DC CONSTIPATION 08/11/20 13:15 Home Med (Med Rec Complete!) ASDIRECTED XX 08/11/20 12:00 08/11/20 11:50 DC Magnesium Hydroxide (Milk Of Magnesia) 10 ml DAILY PRN PO CONSTIPATION 08/11/20 15:15 Omeprazole (PriLOSEC) 20 mg DAILY PO 08/11/20 09:00 08/14/20 08:14 Piperacillin Sod/ Tazobactam Sod 3.375 gm/Dextrose 50 ml @ 50 mls/hr Q6H IV 08/11/20 18:00 08/14/20 12:14 Polyethylene Glycol (Miralax) 1 pkt BID GT 08/11/20 21:00 08/14/20 08:14 Sodium Biphosphate/ Sodium Phosphate (Fleet Enema) 1 ea DAILY PRN DC CONSTIPATION 08/11/20 15:15 Allergies Coded Allergies: No Known Drug Allergies (Verified Allergy, Unknown, 02/09/20) Esme Morris MD Aug 14, 2020 14:46
[2020-08-14 22:00] VITALS: BP 103/66
[2020-08-14] MEDS: ACETAMINOPHEN TAB 650MG DOSE (2X325MG) GT PRN (22:00)
[2020-08-14] MEDS: BACTRIM 160MG/800MG DS TAB PO SCH (22:00)
[2020-08-14] MEDS: AUGMENTIN 875 MG TAB PO SCH (22:00)
[2020-08-15 05:55] LABS: HEMATOCRIT 35.3 % (42.0-52.0); HEMOGLOBIN 11.4 g/dl (13.5-17.5); MEAN CORPUSCULAR HEMOGLOBIN 28.6 pg (27.0-33.0); MEAN CORPUSCULAR HGB CONC 32.3 g/dl (32.0-36.5); MEAN CORPUSCULAR VOLUME 88.7 fl (80.0-96.0); PLATELET COUNT, AUTOMATED 474 10^3/uL (150-450); RED BLOOD COUNT 3.98 10^6/uL (4.30-6.10); WHITE BLOOD COUNT 6.3 10^3/uL (4.0-10.0)
[2020-08-15 06:00] VITALS: BP 101/66
[2020-08-15 06:11] LABS: BLOOD UREA NITROGEN 9 MG/DL (7-18); CALCIUM LEVEL 9.3 MG/DL (8.8-10.2); CARBON DIOXIDE LEVEL 24 MEQ/L (21-32); CHLORIDE LEVEL 106 MEQ/L (98-107); CREATININE FOR GFR 0.57 MG/DL (0.70-1.30); GLOMERULAR FILTRATION RATE > 60.0 (>49); GLUCOSE, FASTING 80 MG/DL (70-100); POTASSIUM SERUM 4.4 MEQ/L (3.5-5.1); SODIUM LEVEL 137 MEQ/L (136-145)
[2020-08-15] MEDS: MIRALAX *UNIT DOSE* 17GM PACKET GT SCH (08:48)
[2020-08-15] MEDS: OMEPRAZOLE 20 MG CAP PO SCH (08:48)
[2020-08-15] MEDS: ASPIRIN 81 MG CHEW TABLET GT SCH (08:48)
[2020-08-15] MEDS: AUGMENTIN 875 MG TAB PO SCH (08:48)
[2020-08-15] MEDS: BACTRIM 160MG/800MG DS TAB PO SCH (08:48)
[2020-08-15] MEDS: ATORVASTATIN 20 MG TAB GT SCH (08:48)
--- NOTE | 2020-08-15 10:58 | IPNPDOC ---
Text Note Date of Service The patient was seen on 08/15/20. NOTE SUBJECTIVE: -No acute events overnight OBJECTIVE: VS: Please see below CONSTITUTIONAL: No acute distress, resting comfortably in bed EYES: PERRLA, EOM intact HENT, MOUTH: Normocephalic, atraumatic, moist mucous membranes NECK: SUPPLE, no JVD, no lymphadenopathy CV: Regular rate and rhythm, no murmurs/rubs/gallops RESPIRATORY: Clear to auscultation bilaterally, no rales/rhonchi/wheezes GI: PEG tube in place. To the right of PEG, open abdominal wall lesion where prior tube was, drain in place to bag, with minimal purulent fluid. Normoactive bowel sounds, soft, no abdominal tenderness to palpation of anterior abd wall, nondistended, no rebound or guarding, no organomegaly NEUROLOGIC: No focal deficits, moving all extremities, CN2-12 intact PSYCHIATRIC: Confused, AAOx0 LABORATORY DATA: Please see below MICROBIOLOGY: Culture from abscess fluid (collected from when drain was placed): E. coli, MRSA, Strep oralis, E. faecalis. Sensitivities in EMR. anaerobic cx still pending Wound culture from draining open abd wall where prior PEG was, taken in ER: E. coli, MRSA, Strep oralis, E. faecalis Blood cultures x 2 sets: NG IMAGING: CT abd/pelvis: 1. PEG tube advanced since 08/01/20, with tip and balloon now in stomach. 2. Persistent abnormal soft tissue density along the tract of the PEG tube, previously with an adjacent hematoma, now with a lower density, mildly thick-walled collection containing gas to the right of the tube, apparently anterior to the stomach or within its wall, with the appearance of an abscess measuring up to 5.8 cm. Follow-up with oral contrast or upper GI series may be of benefit to confirm this is external to the stomach. 3. Decrease of previous gastric wall thickening. 4. Persistent apparent wall thickening of the distal sigmoid colon and rectum, suggesting a nonspecific proctocolitis. 5. Increased patchy bibasilar airspace opacities. ASSESSMENT: 60-year-old M with a history of CVA, pulmonary embolism with IVC filter, protein calorie malnutrition, dysphagia, dementia without behavioral disturbance, history of alcohol dependence, iron deficiency anemia, COPD, major depressive disorder, hypertension, aortic valve disorder admitted for abdominal wall abscess requiring US guided drainage with drain placement and antibiotics. PLAN: 1. Abdominal wall abscess likely 2/2 to previously displaced G tube, 08/11/20 went for abscess drainage and had abscess drain placed -WBC wnl, afebrile, no abd pain. -Abscess cx: E. coli, MRSA, Strep oralis, E. faecalis. Sensitivities in chair. Awaiting anaerobic cx results -Day 2 of augmentin and bactrim. -Per surgery, keep abdominal abscess drain in and to follow up in office this week if discharged home or back to [facility]. 2. Dysphagia s/p CVA -PEG tube in place per CT -c/w home diet of pureed, thin liquids with jevity 1.5 bolus 360 cc 4x/day -Monitor for signs/symptoms of aspiration 3. Dementia without behavioral disturbance/MDD -At baseline 4. Protein calorie malnutrition -C/w diet above 5. Hx of CVA -No new focal deficits, baseline confusion -ASA, statin 6. Hx of PE, s/p IVC filter placement 2019 -Not on oral AC -SCD/teds 7. HTN. -Stable 8. Hx of constipation -C/w bowel regimen from home 9. GERD -PPI 10. DVT px -SCD/teds DISPOSITION: [facility] today VS,Fishbone, I+O VS, Fishbone, I+O Laboratory Tests 08/15/20 05:22 Vital Signs Date Time Temp Pulse Resp B/P (MAP) Pulse Ox O2 Delivery O2 Flow Rate FiO2 08/15/20 06:00 98.6 91 18 101/66 (78) 100 Room Air I&O- Last 24 Hours up to 6 AM 08/15/20 06:00 Intake Total 2130 ml Output Total 0 ml Balance 2130 ml JIN BENNETT MD Aug 15, 2020 07:47
--- NOTE | 2020-08-15 11:13 | DS.PDOC ---
Discharge Summary General Date of Admission Aug 11, 2020 at 13:00 Date of Discharge 08/15/2020 Attending Physician: JIN BENNETT MD Discharge Summary PROCEDURES PERFORMED DURING STAY: Abdominal wall abscess drain placement ADMITTING DIAGNOSES: 1. Abdominal wall abscess DISCHARGE DIAGNOSES: Abdominal wall abscess History of CVA Pulmonary embolism with IVC filter placed Protein calorie malnutrition Dysphagia Dementia without behavioral disturbance History of alcohol dependence Iron deficiency anemia Major depressive disorder Hypertension Aortic valve disorder GERD COMPLICATIONS/CHIEF COMPLAINT: Abdominal Wall Abscess. HISTORY OF PRESENT ILLNESS: 60-year-old M with a past medical history of CVA, pulmonary embolism with IVC filter in place, protein calorie malnutrition, dysphagia, dementia without behavioral disturbance, history of alcohol dependence, iron deficiency anemia, COPD, major depressive disorder, hypertension, aortic valve disorder who was sent to the emergency room from [facility]) after concern for a dislodged G-tube. Patient is a poor historian due to dementia and much of his history was obtained from ER staff, prior records. On 07/31/20 patient was seen in our ER for dislodged G tube. Surgery (Dr. Quijano) placed back a 20 [place] Alberto button, this was tested and noted to be flushing well, thereby giving the okay to use the gastrostomy tube. Patient was sent back to [facility] 08/01/20 and sent back due to concerns it wasn't functioning well again. At that time he was admitted, repeat CT showed percutaneous gastrostomy tube with a 5.6 x 4.2 by 4.9 cm hematoma surrounding the gastrostomy tube balloon. This was initially believed to be 2/2 to traumatic insertion and tube feedings were resumed. On 08/11/20 Patient underwent upper GI endoscopy for abnormal CT GI tract, continued abdominal pain, malfunctioning of gastrostomy tube. PEG was placed at that time next to the area of concern. Patient was discharged back to [facility] on 08/07/20 in improved condition. Now the patient returned for concerns of dislodged PEG tube, with continued abdominal discomfort and oozing from the prior open abdominal wound where the prior G tube was located. HOSPITAL COURSE: In the ER, VS were stable. All labs were unremarkable. Patient was at baseline, pleasantly confused and at times cooperative. AAOx0. Repeat CT abd: 1. PEG tube advanced since 08/01/20, with tip and balloon now in stomach, 2. persistent abnormal soft tissue density along the tract of the PEG tube, previously with an adjacent hematoma, now with a lower density, mildly thick-walled collection containing gas to the right of the tube, apparently anterior to the stomach or within its wall, with the appearance of an abscess measuring up to 5.8 cm. They also commented on increased patchy bibasilar airspace opacities. Patient had no complaints of SOB, chest pain and was saturating well on RA. Dr. Olivares with general surgery evaluated patient and suggested IR drainage with drainage tube placement of abscess and IV abx. Patient was admitted for abdominal wall abscess requiring US guided drainage with drain placement and was placed on zosyn. Her abscess cultures grew E. coli, MRSA, Strep oralis, E. faecalis and was switched to bactrim/augmentin and will now continue 8 more days for a 10d course. He is now being discharged back to [facility]. DISCHARGE MEDICATIONS: Please see below. ALLERGIES: Please see below. PHYSICAL EXAMINATION ON DISCHARGE: VITAL SIGNS: Please see below. CONSTITUTIONAL: No acute distress, resting comfortably in bed EYES: PERRLA, EOM intact HENT, MOUTH: Normocephalic, atraumatic, moist mucous membranes NECK: SUPPLE, no JVD, no lymphadenopathy CV: Regular rate and rhythm, no murmurs/rubs/gallops RESPIRATORY: Clear to auscultation bilaterally, no rales/rhonchi/wheezes GI: PEG tube in place. To the right of PEG, open abdominal wall lesion where prior tube was, drain in place to bag, with minimal purulent fluid. Normoactive bowel sounds, soft, no abdominal tenderness to palpation of anterior abd wall, nondistended, no rebound or guarding, no organomegaly NEUROLOGIC: No focal deficits, moving all extremities, CN2-12 intact PSYCHIATRIC: Confused, AAOx0 LABORATORY DATA: Please see below MICROBIOLOGY: Culture from abscess fluid (collected from when drain was placed): E. coli, MRSA, Strep oralis, E. faecalis. Sensitivities in EMR. anaerobic cx still pending Wound culture from draining open abd wall where prior PEG was, taken in ER: E. coli, MRSA, Strep oralis, E. faecalis Blood cultures x 2 sets: NG IMAGING: CT abd/pelvis: 1. PEG tube advanced since 08/01/20, with tip and balloon now in stomach. 2. Persistent abnormal soft tissue density along the tract of the PEG tube, previously with an adjacent hematoma, now with a lower density, mildly thick-walled collection containing gas to the right of the tube, apparently anterior to the stomach or within its wall, with the appearance of an abscess measuring up to 5.8 cm. Follow-up with oral contrast or upper GI series may be of benefit to confirm this is external to the stomach. 3. Decrease of previous gastric wall thickening. 4. Persistent apparent wall thickening of the distal sigmoid colon and rectum, suggesting a nonspecific proctocolitis. 5. Increased patchy bibasilar airspace opacities. PROGNOSIS: Good ACTIVITY: As tolerated DIET: regular DISCHARGE PLAN: [facility] DISPOSITION: [facility] DISCHARGE INSTRUCTIONS: 1. 8 more days of Bactrim/Augmentin and close surgery follow up for drain removal ITEMS TO FOLLOWUP ON ON OUTPATIENT: 1. Abdominal wall abscess DISCHARGE CONDITION: Stable TIME SPENT ON DISCHARGE: Greater than minutes. Vital Signs/I&Os Vital Signs Date Time Temp Pulse Resp B/P (MAP) Pulse Ox O2 Delivery O2 Flow Rate FiO2 08/15/20 06:00 98.6 91 18 101/66 (78) 100 Room Air I&O- Last 24 Hours up to 6 AM 08/15/20 06:00 Intake Total 2130 ml Output Total 0 ml Balance 2130 ml Laboratory Data Labs 24H Laboratory Tests 2 08/15/20 05:22: Nucleated Red Blood Cells % (auto) 0.0, Anion Gap 7L, Glomerular Filtration Rate > 60.0, Calcium Level 9.3 08/15/20 10:30: CBC/BMP Laboratory Tests 08/15/20 05:22 Microbiology Microbiology 08/11/20 Gram Stain - Final, Resulted 08/11/20 Abscess Culture - Final, Resulted Escherichia Coli Staph.aureus Methicillin Resis Enterococcus Faecalis Streptococcus Oralis 08/11/20 Anaerobic Culture, Resulted Pending 08/11/20 Wound Culture - Final, Complete Escherichia Coli Staph.aureus Methicillin Resis Enterococcus Faecalis Streptococcus Pseudoporcinus Streptococcus Oralis 08/11/20 Blood Culture - Preliminary, Resulted No Growth after 72 hours. All specime... Discharge Medications Scheduled Aspirin (Aspirin) 81 Mg Tab.chew, 81 MG GT DAILY, (Reported) Atorvastatin Calcium (Atorvastatin Calcium) 40 Mg Tablet, 40 MG GT DAILY, (Reported) Omeprazole (Omeprazole) 20 Mg Capsule.dr, 20 MG GT DAILY, (Reported) Polyethylene Glycol 3350 (Miralax) 119 Gm Powder, 17 GM GT BID, (Reported) dilute in 8 ounces of water or juice Scheduled PRN Acetaminophen (Feverall) 650 Mg Supp.rect, 650 MG MD Q4H PRN for PAIN / FEVER, (Reported) Acetaminophen (Tylenol) 325 Mg Tablet, 650 MG GT Q4H PRN for PAIN / FEVER, (Reported) Bisacodyl (Bisacodyl) 10 Mg Supp.rect, 10 MG MD DAILY PRN for CONSTIPATION, (Reported) Milk Of Magnesia (Milk of Magnesia) 2,400 Mg/10 Ml Oral.susp, 10 ML PO for CONSTIPATION, (Reported) Sodium Phosphate,[place]-Dibasic (Enema) 133 Ml Enema, 1 GABRIEL MD DAILY PRN for CONSTIPATION, (Reported) Allergies Coded Allergies: No Known Drug Allergies (Verified Allergy, Unknown, 02/09/20) JIN BENNETT MD Aug 15, 2020 11:09
[2020-08-15] MEDS ORDERED: SULF1TAB93 PO (11:22)
[2020-08-15] MEDS ORDERED: AMOX875T2 PO (11:22)
--- NOTE | 2020-08-17 07:50 | REP ---
CT-GUIDED ABSCESS DRAIN This procedure was performed by GREYSON Man, under the direct supervision of Dr. Quezada. The risks and benefits of the procedure were explained to the patient and an informed consent was obtained both verbally and written, consent was also obtained from the patients health care proxy, his . Directly prior to the start of the procedure, a formal time-out was done in the procedure room. The abscess was localized using CT guidance. Directly above this abscess on the skin surface appears to be a tract from a previous tube placement. From this tract, pus and fluid were also oozing. A site was chosen just inferior to the tract for the new drain placement. The skin was prepped and draped in a sterile fashion. Approximately 5 mL of buffered Lidocaine was used as a local anesthetic. Using trocar technique, an 8-Spanish multi-side hole pigtail catheter was inserted and advanced into the abscess. Approximately 10 mL of bloody pus was extracted and sent to the laboratory for further analysis. The tube was sutured in place, a sterile dressing was applied, and a drainage bag was attached to the end of the tube. The patient tolerated the procedure extremely well and there were no immediate complications. The patient was sent back to the unit. This report has been dictated by GREYSON Man with Dr. Quezada. [facility] CENTERDarren
--- NOTE | 2020-08-18 09:33 | CR ---
DATE OF CONSULTATION: REASON FOR CONSULTATION: Abdominal abscess. HISTORY OF PRESENT ILLNESS: The patient is a 60-year-old man who is a resident of the [facility]. He has a history of multiple cerebrovascular accidents and has significant baseline mental status problems. He had an episode of aspiration pneumonia earlier this year and was felt to be unsafe for swallowing, and a feeding tube was placed. There have been some problems with the tube intermittently. His gastrostomy (G) tube was recently changed, and he was brought back to the emergency department today with some complaints of upper abdominal pain. A CT scan shows that his current gastrostomy tube is in good position within the stomach, but there is a collection of fluid with some air bubbles anterior to the stomach, suggestive of an abscess. I was asked to evaluate the patient. ALLERGIES: Patient has no reported drug allergies. MEDICATIONS: Patient's current medications include: - Tylenol as needed - aspirin 81 mg daily - atorvastatin - bisacodyl - milk of magnesia - omeprazole - MiraLax as needed - enemas as needed for constipation MEDICAL HISTORY: 1. Significant for chronic obstructive lung disease. 2. He has a history of multiple strokes with cognitive dysfunction and has been living at the [facility]. 3. He had aspiration pneumonia earlier this year and has had a feeding tube placed. Remainder of the medical and surgical history is as noted in the medical record. PHYSICAL EXAMINATION: Patient is a thin man lying quietly on the stretcher in the emergency department. He is responsive to voice, but his responses due to not seem to be appropriate at times. He is unable to offer a cogent medical history. Examination of the abdomen shows that he has a gastrostomy tube protruding high in the left upper quadrant. The site is clean with a minimal amount of drainage around the tube. The retention disc externally is somewhat loose and slides on the tube somewhat. Slightly medial and above the level of the insertion of his current tube there is a healing wound that appears consistent with an old gastrostomy tube site. There is a small amount of purulent-appearing drainage coming from this. Patient is tender to palpation high in the epigastrium around these G-tube sites. The abdomen is otherwise flat and soft without significant tenderness. He has some bowel sounds present. Laboratory studies today show a white count of 9, hemoglobin 12, hematocrit 40, and a platelet count of 265,000. Differential count shows 71% neutrophils, 18% lymphocytes, 7% monocytes. Chemistry profile shows normal electrolytes, BUN, creatinine, and glucose. Lactate is less than 1. Liver function tests are normal with a normal troponin. Lipase is normal. He had a CT scan in the emergency department today. This revealed a G tube entering the stomach high in the upper abdomen. Slightly medial to the current G-tube site there is a 4-5 cm collection of fluid with several small air bubbles just anterior to the stomach, consistent with an abscess. Review of his recent hospital visit shows that on or about July 31 he had been to the ER with report of his G tube being removed. A new tube was inserted and appeared to function, and the patient was discharged back to the [facility]. Later that same day, I believe, he returned with report of some epigastric discomfort. A CT scan was done that showed the G tube that had been placed earlier in the day with a collection of fluid around the tube. The x-ray report does not indicate that the tube was not within the stomach, though on my review of these images it appears that the tube was sitting in the space anterior to the stomach and not actually within the lumen of the stomach. The CT scan report from today does suggest that this was the case. IMPRESSION: Intra-abdominal abscess anterior to the stomach at the site of his prior gastrostomy tube. RECOMMENDATIONS: I think admission to the hospitalist service for management of his overall medical situation is appropriate. I do think that he may benefit from a percutaneous drainage of this fluid collection. There is a small amount of drainage at the old G-tube site, but by now I believe this would be well enough closed that further drainage through this area will be likely to be inadequate. I think antibiotics are certainly appropriate, and these could be based on culture results as they become available. Again, I think a percutaneous image-guided drainage would be most appropriate for this. His current G tube appears to be in good condition and could be utilized as needed. MORIS
== END 2020-08-15 12:00 | DRG 394 ==
LOC: M ED 08:10 → M ED INP 13:00 → ENRESERV 13:37 → M MS5PR 16:49
PROVIDERS: ADMIT Internal Medicine; ATTEND Internal Medicine
PROC: 0W9F30Z Drainage of Abdominal Wall with Drainage Device, Percutaneous Approach (ICD-10-PCS; principal; 2020-08-11 15:15)
DX: K94.12 Enterostomy infection (principal); L02.211 Cutaneous abscess of abdominal wall; E46 Unspecified protein-calorie malnutrition; R13.10 Dysphagia, unspecified; F03.90 Unspecified dementia, unspecified severity, without behavioral disturbance, psychotic disturbance, mood disturbance, and anxiety; D50.9 Iron deficiency anemia, unspecified; J44.9 Chronic obstructive pulmonary disease, unspecified; F32.9 Major depressive disorder, single episode, unspecified; Z66 Do not resuscitate; I69.391 Dysphagia following cerebral infarction; I10 Essential (primary) hypertension; B95.2 Enterococcus as the cause of diseases classified elsewhere; B95.62 Methicillin resistant Staphylococcus aureus infection as the cause of diseases classified elsewhere; B95.5 Unspecified streptococcus as the cause of diseases classified elsewhere; B96.20 Unspecified Escherichia coli [E. coli] as the cause of diseases classified elsewhere; K21.9 Gastro-esophageal reflux disease without esophagitis; I35.8 Other nonrheumatic aortic valve disorders; Z86.711 Personal history of pulmonary embolism; Z95.828 Presence of other vascular implants and grafts; K59.00 Constipation, unspecified; Z79.82 Long term (current) use of aspirin; Z79.899 Other long term (current) drug therapy

== ENCOUNTER → 2020-08-16 | Outpatient (REF) ==
[~2020-08-16] MED LIST changes: +AMOX875T2 PO; +MIRA3350 GT; +MOM30SS PO; +SULF1TAB93 PO
--- NOTE | 2020-08-22 11:31 | REP ---
PORTABLE KUB: SINGLE VIEW HISTORY: Verify feeding tube placement. COMPARISON STUDY: 04/14/2020. FINDINGS: Supine view of the abdomen demonstrates vascular calcification, and inferior vena cava filter, a pigtail drainage catheter placed in the central abdomen, and a gastrostomy tube in the left upper quadrant. The retention balloon of the gastrostomy tube appears to align with a gastric air bubble. It is just to the left of the percutaneous abscess drainage catheter. IMPRESSION: Gastrostomy tube retention balloon appears to be in good position. There is an adjacent abscess drainage catheter. MTDD
== END ==
LOC: SKLAB2 10:27
PROVIDERS: ATTEND Family Medicine
DX: Z93.1 Gastrostomy status (principal)

== ENCOUNTER → 2020-08-21 | Outpatient (REF) | payer OTHER ==
--- NOTE | 2020-08-22 11:30 | REP ---
PORTABLE KUB HISTORY: Abdomen tenderness. COMPARISON STUDY: August 16, 2020. FINDINGS: A gastrostomy tube remains in place in the left upper quadrant. Adjacent to this is a pigtail drainage catheter near the midline. There is an IVC filter also noted. Vascular calcification is observed. The bowel gas pattern is unremarkable with air and stool in an undistended colon. No large or small bowel dilation. IMPRESSION: G-tube and percutaneous abscess drainage catheter noted along with IVC filter. Normal bowel gas pattern. MTDD
== END ==
LOC: SKLAB2 08:24
DX: Z93.1 Gastrostomy status (principal)

== ENCOUNTER → 2020-08-22 | Outpatient (POV) | payer OTHER ==
--- NOTE | 2020-08-23 09:55 | IRPN ---
[facility] IR Progress Note IR Progress Note DATE: Aug 22, 2020 Patient's nurse agreed to this telephone follow-up on behalf of the patient. I spent 15 minutes reviewing patient's chart, imaging and on the phone with the patient's carer. FOLLOW-UP: 60-year-old male with prior history of bilateral pulmonary emboli, who could not be anticoagulated at the time due to GI bleeding. Patient had a filter placed 6 months ago due to poor pulmonary reserve and contraindications to anti coagulation. We are reviewing indication for filter removal. Patient's nurse states he's been in and out of the hospital due to his G-tube. He had Eliquis started in the hospital but this was stopped by PCP. Patient's carer states patient has not had any GI bleeding. Imaging: I reviewed his CT PE protocol performed 02/13/2020. At that time he had acute bilateral lower lobe segmental subsegmental pulmonary emboli. IMPRESSION: 60-year-old male, 6 month status post IVC filter placement due to contraindication to anticoagulation at that time. Patient is still not anticoagulated. If patient can be safely anticoagulated, I would like to remove the filter. If patient can never be safely anticoagulated, the filter may have to remain permanently. This is because long-term filters can be associated with filter fracture, migration and/or IVC occlusion. Please note, despite filter, patient remains at risk of DVT. Follow-up in 6 months for repeat evaluation to see if patient is stable on anticoagulation and appropriateness for filter removal. Thank you for this referral Cc Dr. Fuller CC Dr. Kaminski Allergies Coded Allergies: No Known Drug Allergies (Verified Allergy, Unknown, 02/09/20) INGRID MORGAN MD Aug 23, 2020 09:55
== END ==
LOC: M TMIRPOV 08:20 → EEVIPCON 08:30
PROVIDERS: ATTEND Radiology Diagnostic Radiology
DX: Z45.89 Encounter for adjustment and management of other implanted devices (principal); Z86.711 Personal history of pulmonary embolism

== ENCOUNTER 2020-08-30 10:56 | Emergency (ER) | payer OTHER ==
[~2020-08-30] VITALS: Ht 188 cm; Wt 64.8 kg
[2020-08-30 14:52] LABS: BASO % 0.4 % (0.0-1.0); EOS # 0.7 10^3/uL (0.0-0.5); EOS % 12.7 % (0.0-3.0); HEMATOCRIT 38.7 % (42.0-52.0); HEMOGLOBIN 12.2 g/dl (13.5-17.5); LYMPH # 1.7 10^3/uL (1.5-5.0); LYMPH % 32.1 % (24.0-44.0); MEAN CORPUSCULAR HGB CONC 31.5 g/dl (32.0-36.5); MEAN CORPUSCULAR VOLUME 92.1 fl (80.0-96.0); MONO # 0.6 10^3/uL (0.0-0.8); MONO % 10.6 % (0.0-5.0); NEUTROPHILS # 2.3 10^3/uL (1.5-8.5); PLATELET COUNT, AUTOMATED 189 10^3/uL (150-450); WHITE BLOOD COUNT 5.3 10^3/uL (4.0-10.0)
[2020-08-30 15:15] LABS: ALT/SGPT 11 U/L (12-78); BILIRUBIN,DIRECT 0.2 MG/DL (0.0-0.2); BILIRUBIN,TOTAL 0.5 MG/DL (0.2-1.0); BLOOD UREA NITROGEN 9 MG/DL (7-18); CALCIUM LEVEL 9.4 MG/DL (8.8-10.2); CARBON DIOXIDE LEVEL 26 MEQ/L (21-32); CHLORIDE LEVEL 106 MEQ/L (98-107); CREATININE FOR GFR 0.61 MG/DL (0.70-1.30); GLOMERULAR FILTRATION RATE > 60.0 (>49); GLUCOSE, FASTING 78 MG/DL (70-100); LIPASE 56 U/L (73-393); POTASSIUM SERUM 4.3 MEQ/L (3.5-5.1); SODIUM LEVEL 139 MEQ/L (136-145)
[2020-08-30] MEDS ORDERED: ISOVUE-370 76% 100ML VIAL As Ordered ONE (15:29)
--- NOTE | 2020-08-30 15:59 | REPVR ---
PROCEDURE INFORMATION: Exam: CT Abdomen And Pelvis With Contrast Exam date and time: 08/30/2020 3:37 PM Age: 60 years old Clinical indication: Abdominal pain; Generalized; Additional info: Abd pain with HX of abd abscess needing drainage TECHNIQUE: Imaging protocol: Computed tomography of the abdomen and pelvis with intravenous contrast. Radiation optimization: All CT scans at this facility use at least one of these dose optimization techniques: automated exposure control; mA and/or kV adjustment per patient size (includes targeted exams where dose is matched to clinical indication); or iterative reconstruction. Contrast material: ISOVUE 370; Contrast volume: 100 ml; Contrast route: INTRAVENOUS (IV); COMPARISON: CT ABD/PEL W/IV CONTRAST ONLY 08/11/2020 10:39 AM FINDINGS: Tubes, catheters and devices: The PEG tube appears in good position. The suspicious fluid collection that was likely an abscess is not identified. Lungs: There is bibasilar bronchiectasis with improving infiltrates bilaterally. Minimal residual streaking is noted possibly chronic. Liver: The liver is moderately fatty slightly enlarged 180 mm. 6 mm liver hypodensity likely a small cyst. This appears likely on the previous examination of 08/01/2020. Was not able to be seen on the 08/11/2020 exam due to artifact from the patient's arms. Gallbladder and bile ducts: Normal. No calcified stones. No ductal dilation. Pancreas: Normal. No ductal dilation. Spleen: There is an 11 mm hypodensity noted within the spleen as well as other smaller hypodensities. These appear overall similar and stable since the CT scan of 08/01/20. Adrenals: Normal. No mass. Kidneys and ureters: Normal. No hydronephrosis. Stomach and bowel: Unremarkable. No obstruction. No mucosal thickening. Appendix: No evidence of appendicitis. Intraperitoneal space: Unremarkable. No free air. No significant fluid collection. Vasculature: There is an inferior vena cava filter which is stable. Extensive vascular calcifications are stable. 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 Occlusion of the right distal common femoral artery proximal visualized superficial femoral artery. Occlusion of the left superficial femoral artery. This is stable. Lymph nodes: Unremarkable. No enlarged lymph nodes. Urinary bladder: Unremarkable as visualized. Reproductive: Unremarkable as visualized. Bones/joints: The spine is stable. Soft tissues: Unremarkable. Other findings: Moderate retained stool. IMPRESSION: 1. Improving lungs with residual bronchiectasis and likely fibrosis and chronic changes. 2. Stable splenic lesions since 08/01/2020. 3. PEG tube in good position with the findings suspicious for an abscess no longer present. 4. Retained stool. 5. 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 Electronically signed by: Shabbir John On 08/30/2020 15:59:03 PM
[2020-08-30 16:44] VITALS: BP 141/75
--- NOTE | 2020-09-02 08:21 | ED PDOC ---
Post-Departure Follow-Up radiology report faxed to Ria Fernández MD Sep 02, 2020 08:21
== END 2020-08-30 16:40 | disposition home or self-care (01) ==
LOC: M ED 10:56
DX: R10.9 Unspecified abdominal pain (principal); I72.4 Aneurysm of artery of lower extremity; I69.818 Other symptoms and signs involving cognitive functions following other cerebrovascular disease; I10 Essential (primary) hypertension; E78.5 Hyperlipidemia, unspecified; G93.41 Metabolic encephalopathy; J44.9 Chronic obstructive pulmonary disease, unspecified; Z86.711 Personal history of pulmonary embolism; Z79.899 Other long term (current) drug therapy; Z79.82 Long term (current) use of aspirin
CPT/HCPCS: 36415; 74177; 80048; 80076; 81001; 83605; 83690; 85025; 87040; 99284; Q9967

== ENCOUNTER 2021-03-01 17:06 | Emergency (ER) | payer OTHER ==
[~2021-03-01] VITALS: Ht 182.9 cm; Wt 65.5 kg
[~2021-03-01 17:06] MED LIST changes: -MAG400TA GT; +MAGN400T35 GT; -PEG1POW PEG; +POLY17PO18 PEG
[2021-03-01] MEDS ORDERED: SERT25TA21 (17:14)
--- NOTE | 2021-03-01 20:11 | REPVR ---
PROCEDURE INFORMATION: Exam: XR Soft Tissue Neck Exam date and time: 03/01/2021 7:50 PM Age: 60 years old Clinical indication: Other: Feels something May be stuck in throat; Additional info: Feels something May be stuck throat TECHNIQUE: Imaging protocol: XR of the soft tissues of the neck. COMPARISON: XA Cookie Swallow Mod.Ba Swallow 03/01/2020 1:21 PM FINDINGS: Airway: Normal. No abnormal narrowing. Soft tissues: Normal. Normal epiglottis. Bones/joints: The cervical spine demonstrates moderate degenerative changes. Disc space narrowing at C4-C5 and C6-C7 with intervertebral osteophytes. IMPRESSION: 1. Degenerative changes in the cervical spine. 2. No radiopaque foreign body demonstrated. Electronically signed by: Balbir Verma On 03/01/2021 20:12:25 PM
[2021-03-01] MEDS ORDERED: AUGM875T28 PO (20:27)
[2021-03-01] MEDS ORDERED: AUGMENTIN 875 MG TAB PO ONE (20:30)
[2021-03-01 20:44] VITALS: BP 159/81
== END 2021-03-01 20:49 | disposition home or self-care (01) ==
LOC: M ED 17:06
DX: J02.0 Streptococcal pharyngitis (principal); Z79.899 Other long term (current) drug therapy; Z79.82 Long term (current) use of aspirin

== ENCOUNTER → 2021-03-13 | Outpatient (CLI) | payer OTHER ==
[~2021-03-13] MED LIST changes: +AUGM875T28 PO; +SERT25TA21
--- NOTE | 2021-03-13 15:59 | REP ---
INDICATION: ATHEROSCLEROSIS, ANEURYSM OF LOWER EXTREM ARTERY COMPARISON: None. TECHNIQUE: Bilateral lower extremity arterial ultrasound FINDINGS: Right: All numbers reflect peak systolic velocity in cm/Sec [employer] ANCHOR: 41.2 biphasic Profunda: 46.7 monophasic SFA proximal middle and distal components occluded Popliteal: Revascularized 19.8 monophasic [place] proximal: 19.4 monophasic Tibioperoneal trunk: 23.0 monophasic [employer]ER: Proximal 8.9 monophasic [employer]ER distal: 11.5 monophasic [place] distal: Occluded Left: All numbers refer ella peak systolic velocity in cm /sec [employer]IO [employer] ANCHOR: Occluded Profunda: 46.8 monophasic SFA proximal, mid, and distal occluded Popliteal: 13.7 monophasic FR[place] proximal: 14.1 monophasic Tibioperoneal trunk: 19.4 monophasic [employer]ER proximal: 19.2 monophasic [employer] TE[employer]ER distal: 13.4 monophasic FRANCE distal: 13.0 monophasic Severe plaque formation was seen throughout IMPRESSION: As above <Electronically signed by Rogelio Knowles > 03/13/21 [id number]
== END ==
LOC: M RAD 14:34
PROVIDERS: ATTEND Surgery Vascular Surgery
DX: I70.203 Unspecified atherosclerosis of native arteries of extremities, bilateral legs (principal)

== ENCOUNTER 2021-04-04 09:12 | Inpatient (IN) | payer OTHER ==
[~2021-04-04] VITALS: Ht 188 cm; Wt 81.8 kg
[~2021-04-04 09:12] MED LIST changes: -ASPI1CHW3 GT; +ASPI1CHW3 PO; -ATOR40TA75 GT; +ATOR40TA75 PO; +BACTDSTA PO; +PANTOPRAZOLE 40MG VIAL (C9113 PER 1) IV SCH; -SERT25TA21; +SERT25TA21 PO; -SULF1TAB93 PO
--- NOTE | 2021-04-04 10:24 | REP ---
INDICATION: Altered Mental Status COMPARISON: 08/11/2020 TECHNIQUE: Portable AP view of the chest FINDINGS: The mediastinum and cardiac silhouette are stable and within normal limits for portable technique. The lung pritchard demonstrate diffuse chronic interstitial disease and possible fibrosis. No obvious focal consolidation. No effusion or pneumothorax. Skeletal structures are intact. IMPRESSION: Diffuse chronic fibrosis/interstitial disease. No obvious acute process identified. If the patient remains symptomatic consider chest CT for further investigation. <Electronically signed by Corby Hilton > 04/04/21 [id number]
--- NOTE | 2021-04-04 10:38 | REP ---
INDICATION: Altered Mental Status. COMPARISON: 03/09/2020 TECHNIQUE: 4.5 mm contiguous transaxial sections were obtained from the skull base to the cerebral convexities with thin cuts through the posterior fossa without the administration of intravenous contrast. FINDINGS: The ventricles and sulci are consistent with the patient's age. There are no extra-axial fluid collections. There is no mass effect. The deep cerebral white matter is unchanged. Patchy areas of deep cerebral white matter lucencies are again noted. The orbital and petrous structures, cerebellopontine angles, and posterior fossa are unremarkable. The sella turcica, cavernous, and paracavernous structures are essentially unremarkable. The visualized portions of the paranasal sinuses and mastoid air cells are clear. Images of the skull base show no gross abnormality. IMPRESSION: There is been no significant change compared to the prior exam. Patchy areas of deep cerebral white matter ischemic change is noted status quo. There is no evidence of acute intracranial pathology. Consider follow-up with MRI if clinically relevant. <Electronically signed by Rogelio Knowles > 04/04/21 1036
[2021-04-04 11:31] LABS: BASO % 0.7 % (0.0-1.0); EOS # 0.3 10^3/uL (0.0-0.5); EOS % 7.7 % (0.0-3.0); HEMOGLOBIN 15.2 g/dl (13.5-17.5); LYMPH # 1.6 10^3/uL (1.5-5.0); LYMPH % 39.4 % (24.0-44.0); MEAN CORPUSCULAR HEMOGLOBIN 28.9 pg (27.0-33.0); MEAN CORPUSCULAR HGB CONC 32.3 g/dl (32.0-36.5); MEAN CORPUSCULAR VOLUME 89.4 fl (80.0-96.0); MONO # 0.4 10^3/uL (0.0-0.8); MONO % 8.7 % (2.0-8.0); NEUTROPHILS # 1.8 10^3/uL (1.5-8.5); NEUTROPHILS % 43.3 % (36.0-66.0); PLATELET COUNT, AUTOMATED 210 10^3/uL (150-450); RED BLOOD COUNT 5.26 10^6/uL (4.30-6.10)
[2021-04-04 12:10] LABS: OSMOLALITY SERUM 281 MOSM/KG (280-301)
[2021-04-04 12:12] LABS: ALBUMIN 3.8 GM/DL (3.2-5.2); ALT/SGPT 12 U/L (12-78); BILIRUBIN,DIRECT 0.2 MG/DL (0.0-0.2); BILIRUBIN,TOTAL 0.5 MG/DL (0.2-1.0); BLOOD UREA NITROGEN 9 MG/DL (7-18); CALCIUM LEVEL 9.4 MG/DL (8.8-10.2); CARBON DIOXIDE LEVEL 27 MEQ/L (21-32); CHLORIDE LEVEL 108 MEQ/L (98-107); CK-MB VALUE MASS < 1.0 NG/ML (<3.6); CPK CREATINE PHOSPHOKINASE 97 U/L (39-308); CREATININE FOR GFR 0.79 MG/DL (0.70-1.30); ETHYL ALCOHOL (ETHANOL) < 0.003 % (0.000-0.010); GLOMERULAR FILTRATION RATE > 60.0 (>49); GLUCOSE, FASTING 87 MG/DL (70-100); MB/CK RELATIVE INDEX 1.03 (< OR =4); POTASSIUM SERUM 3.7 MEQ/L (3.5-5.1); SALICYLATE LEVEL < 1.7 MG/DL (5.0-30.0); SODIUM LEVEL 140 MEQ/L (136-145); THYROID STIMULATING HORMONE 0.423 uIU/ML (0.358-3.740); TOTAL PROTEIN 7.8 GM/DL (6.4-8.2); TROPONIN I < 0.02 NG/ML (< 0.10)
[2021-04-04 12:13] LABS: ACETAMINOPHEN LEVEL < 2.0 UG/ML (10.0-30.0)
[2021-04-04 13:06] LABS: AMPHETAMINES LEVEL URINE NEGATIVE (NEGATIVE); BARBITURATES URINE NEGATIVE (NEGATIVE); BENZODIAZEPINES URINE NEGATIVE (NEGATIVE); CANNABINOIDS URINE NEGATIVE (NEGATIVE); COCAINE METABOLITE URINE NEGATIVE (NEGATIVE); METHADONE URINE NEGATIVE (NEGATIVE); OPIATES URINE NEGATIVE (NEGATIVE); PHENCYCLIDINE URINE NEGATIVE (NEGATIVE)
[2021-04-04] MEDS ORDERED: OMEP-221 PO (13:57)
[2021-04-04] MEDS ORDERED: ALBU8.5H INH (14:20)
[2021-04-04] MEDS ORDERED: SPIR-10 PO (14:20)
[2021-04-04] MEDS ORDERED: ASMA220A INH (14:20)
[2021-04-04] MEDS ORDERED: ALLO100T PO (14:20)
[2021-04-04] MEDS ORDERED: AMLO1TAB25 PO (14:20)
[2021-04-04] MEDS ORDERED: STIO1AER INH (14:20)
[2021-04-04] MEDS ORDERED: FERR324T2 PO (14:20)
[2021-04-04] MEDS ORDERED: VITA-168 PO (14:20)
--- NOTE | 2021-04-04 14:45 | HPEPDOC ---
[facility] Medical History & Physical Date of Admission April 04, 2021 Date of Service: April 04, 2021 Attending Physician: Esme Morris MD History and Physical CHIEF COMPLAINT: AMS, dysphagia HISTORY OF PRESENT ILLNESS: Patient is a 60-year-old male with past medical history of CVA, pulmonary embolism with IVC filter placed, protein calorie malnutrition, dysphagia, dementia now with behavioral disturbance, history of alcohol dependence, iron deficiency anemia, COPD, major depressive disorder, hypertension, aortic valve disorder was sent to the emergency room from home after the patient told the neighbor that he has difficulty swallowing. The patient is an overall poor historian secondary to dementia, his at the bedside was able to recount most of today's events. The patient has had increased salivation and spitting, went to see his primary care provider on 03/20/2021 who at that time did not have a concern for dysphasia. The patient according to the has had no increased shortness of breath, chest pain, weight loss, decrease in appetite or signs or symptoms of choking at home. The patient states at times his saliva cannot be swallowed. He has become increasingly argumentative with at times increased aggressiveness according to his . He does not follow with the behavior health specialists outside the hospital. There has been 2 times in the last 2 days that he has asked his neighbor's to called the ambulance to take him to the hospital to get his swallowing issues addressed. The patient has a history of CVA and his father's requiring a G-tube. According to his the G- tube was taken out late last year or early this year by our surgical services and told he could eat naturally. In the ER vital signs were stable, labs were unremarkable aside from an ammonia level which was slightly elevated at 35. AST/ALT were within normal limits. Urinalysis was negative. The patient was thin but did not appear cachectic or may sedated. He was argumentative at times and slightly hostile. He continued to spit into an emesis by the entire time I was evaluating him but did not appear to choke on his saliva. He appeared stable. According to his he had had increased confusion over the past several days along with his behavioral changes. He has been compliant with his home medications according to his outside the hospital. Due to history of dysphasia with aspiration and concern for recurrence of dysphasia and increased confusion, the patient was admitted fo r further evaluation to hospitalist service. At the time of admission patient denies palpitations, chest pain, shortness of breath, fevers, chills, cough, nausea or vomiting. ROS: Neg except mentioned above PAST MEDICAL HISTORY: History of CVA pulmonary embolism with IVC filter placed protein calorie malnutrition hx of dysphagia dementia without behavioral disturbance history of alcohol dependence iron deficiency anemia COPD major depressive disorder hypertension aortic valve disorder GERD hx of abdominal wall abscess likely 2/2 to previously displaced G tube PAST SURGICAL HISTORY: G tube placement and later removal PEG tube placement 08/11/20 IVC filter placement FAMILY HISTORY: Unable to obtain due to patient's mental status/dementia, does not know SOCIAL HISTORY: No smoking, current alcohol or drug use. Hx of alcohol abuse. Lives with locally. PCP- Dr. Fuller. Full Code despite [facility] that states he is DNR/DNI. ALLERGIES: Please see below. HOME MEDICATIONS: Please see below. PHYSICAL EXAMINATION: VS: Please see below CONSTITUTIONAL: No acute distress, sitting up in bed EYES: PERRLA, EOM intact HENT, MOUTH: Normocephalic, atraumatic, moist mucous membranes NECK: SUPPLE, no JVD, no lymphadenopathy, no carotid bruit CV: Regular rate and rhythm, S1S2 normal, no murmurs/rubs/gallops, no extremity edema RESPIRATORY: Clear to auscultation bilaterally, no rales/rhonchi/wheezes GI: well healed scars on abdomen where prior FT was. BS positive in 4 quadrants, soft, nontender, nondistended, no rebound or guarding, no organomegaly : Deferred MUSCULOSKELETAL: Normal ROM. No cyanosis, clubbing, swelling, joint deformity, extremity edema INTEGUMENTARY: Intact, no rashes, no lesions, no erythema. see above under GI NEUROLOGIC: No focal deficits PSYCHIATRIC: Confused, agitated and argumentative at times LABORATORY DATA: Please see below MICROBIOLOGY: BCx pending UA neg IMAGING: CXR: Diffuse chronic fibrosis/interstitial disease. No obvious acute process identified. If the patient remains symptomatic consider chest CT for further investigation. CT head: There is been no significant change compared to the prior exam. Patchy areas of deep cerebral white matter ischemic change is noted status quo. There is no evidence of acute intracranial pathology. Consider follow-up with MRI if clinically relevant. ASSESSMENT: 60-year-old male with past medical history of CVA, pulmonary embolism with IVC filter placed, protein calorie malnutrition, dysphagia, dementia without behavioral disturbance, history of alcohol dependence, iron deficiency anemia, COPD, major depressive disorder, hypertension, aortic valve disorder admitted for r/o dysphagia, increased confusion/encephalopathy r/o metabolic cause vs. behavioral. PLAN: Increased confusion, r/o metabolic encephalopathy vs. worsening dementia now with behaviors -Increased agitation, at times aggressive per -Ammonia 35, normal AST/ALT -BCx pending -UA neg -patient has not taken PO medications yet today due to ? swallowing issue -F/u swallowing evaluation. If concern, will need to hold off on PO meds -Lactulose over 24 hours and recheck ammonia in AM Dysphagia with increased secretions -hx of CVA with hx of dysphagia requiring G tube- was previously on diet of pureed, thin liquids with jevity 1.5 bolus 360 cc 4x/d in past. tube was pulled late 2019 or Nov 2020- could not remember -Worsened dysphagia over past 1 month, at times was told patient cannot swallow secretions -CXR above- no concern for aspiration PNA -Swallowing eval ordered, NPO, IVFs for now Hx of alcohol related dementia without behavioral disturbance/MDD -Increased behaviors, aggression, agitation -Does not follow with behavioral health outside hospital. -If can take PO, resume home meds -Will need sitter -Consider psych consult COPD -Stable on RA -CXR above -C/w home med equivalents Hx of protein calorie malnutrition -BMI 23, thin but does not appear cachectic -F/u nutritional evaluation Hx of CVA -No new focal deficits, baseline confusion -ASA, statin when able to take PO Hx of PE, s/p IVC filter placement 2019 -Not on oral AC -SCD/teds HTN -Slightly high in ER -Resume home meds when able Hx of constipation -C/w bowel regimen from home GERD -PPI DVT px -SCD/teds , CI with hx of GI bleed DISPOSITION: Patient is admitted under inpatient status. May need psych consult if behaviors continue. Sitter. Per , plan is home if able at discharge. Vital Signs Vital Signs Date Time Temp Pulse Resp B/P (MAP) Pulse Ox O2 Delivery O2 Flow Rate FiO2 04/04/21 12:15 51 176/84 (114) 95 Room Air 04/04/21 09:18 98.1 18 Laboratory Data Labs 24H Laboratory Tests 2 04/04/21 10:04: Immature Granulocyte % (Auto) 0.2, Neutrophils (%) (Auto) 43.3, Lymphocytes (%) (Auto) 39.4, Monocytes (%) (Auto) 8.7H, Eosinophils (%) (Auto) 7.7H, Basophils (%) (Auto) 0.7, Neutrophils # (Auto) 1.8, Lymphocytes # (Auto) 1.6, Monocytes # (Auto) 0.4, Eosinophils # (Auto) 0.3, Basophils # (Auto) 0.0, Nucleated Red Blood Cells % (auto) 0.0 04/04/21 10:40: Anion Gap 5L, Glomerular Filtration Rate > 60.0, Osmolality 281, Lactic Acid Level 1.0, Calcium Level 9.4, Total Bilirubin 0.5, Direct Bilirubin 0.2, Aspartate Amino Transf (AST/SGOT) 12, Alanine Aminotransferase (ALT/SGPT) 12, Alkaline Phosphatase 120H, Ammonia 35H, Total Creatine Kinase 97, Creatine Kinase MB < 1.0, Creatine Kinase MB Relative Index 1.03, Troponin I < 0.02, Total Protein 7.8, Albumin 3.8, Albumin/Globulin Ratio 1.0, Thyroid Stimulating Hormone (TSH) 0.423, Salicylates Level < 1.7L, Acetaminophen Level < 2.0L, Ethyl Alcohol Level < 0.003 04/04/21 12:24: Urine Color YELLOW, Urine Appearance HAZY, Urine pH 5.0, Urine Specific [place] 1.027, Urine Protein 1+H, Urine Glucose (UA) NEGATIVE, Urine Ketones NEGATIVE, Urine Blood 2+H, Urine Nitrite NEGATIVE, Urine Bilirubin NEGATIVE, Urine Urobilinogen 2.0H, Urine Leukocyte Esterase NEGATIVE, Urine WBC (Auto) 2, Urine RBC (Auto) 2, Urine Hyaline Casts (Auto) 1, Urine Bacteria (Auto) NEGATIVE, Urine Squamous Epithelial Cells 3, Urine Mucus (Auto) SMALL, Urine Sperm (Auto) , Urine Opiates Screen NEGATIVE, Urine Methadone Screen NEGATIVE, Urine Barbiturates Screen NEGATIVE, Urine Phencyclidine Screen NEGATIVE, Urine Amphetamines Screen NEGATIVE, Urine Benzodiazepines Screen NEGATIVE, Urine Cocaine Metabolite Screen NEGATIVE, Urine Cannabinoids Screen NEGATIVE CBC/BMP Laboratory Tests 04/04/21 10:04 04/04/21 10:40 Microbiology Microbiology 04/04/21 Blood Culture, Received Pending 04/04/21 Blood Culture, Received Pending Home Medications Scheduled Allopurinol (Allopurinol) 100 Mg Tablet, 100 MG PO DAILY Amlodipine Besylate (Amlodipine Besylate) 10 Mg Tablet, 10 MG PO DAILY Aspirin (Aspirin) 81 Mg Tab.chew, 81 MG PO DAILY Atorvastatin Calcium (Atorvastatin Calcium) 40 Mg Tablet, 40 MG PO DAILY Cholecalciferol (Vitamin D3) (Vitamin D3) 25 Mcg Tablet, 25 MCG PO DAILY Ferrous Sulfate (Ferrous Sulfate) 324 Mg Tablet.dr, 324 MG PO DAILY Mometasone Furoate (Asmanex) 220 Mcg Aer.pow.ba, 1 PUFF INH QHS Omeprazole (Omeprazole) 40 Mg Capsule.dr, 40 MG PO DAILY Sertraline HCl (Sertraline HCl) 25 Mg Tablet, 25 MG PO DAILY Spironolactone (Spironolactone) 25 Mg Tablet, 25 MG PO DAILY Tiotropium Br/Olodaterol HCl (Stiolto Respimat Inhal [place]) 4 Gm Mist.inhal, 2 PUFF INH QHS Scheduled PRN Albuterol Sulfate (Albuterol Sulfate Hfa) 8.5 Gm Hfa.aer.ad, 2 PUFFS INH Q6H PRN for SHORTNESS OF BREATH Allergies Coded Allergies: No Known Drug Allergies (Verified Allergy, Unknown, 02/09/20) A-FIB/CHADSVASC A-FIB History Current/History of A-Fib/PAF?: No Current PO Anticoag Therapy: No Age/Risk Factor Scoring CHADSVASC: CHADSVASC Response (Comments) Value Age Risk Factor Age < 65 years old 0 Gender Risk Factor Male 0 Hx of CHF No 0 Hx of HTN Yes 1 Hx of Stroke/TIA/or VTE Yes 2 Hx of Diabetes No 0 Hx of Vascular Disease No 0 Total 3 Treatment Treatment ordered: Other Other anticoagulant ordered: scd Esme Morris MD April 04, 2021 14:45
[2021-04-04 16:10] VITALS: BP 188/97
[2021-04-04] MEDS: NS 1,000 ML IV SCH (16:54)
[2021-04-04 17:31] LABS: INR 1.03; PROTHROMBIN TIME 13.7 SECONDS (12.5-14.3)
[2021-04-04 17:32] LABS: PARTIAL THROMBOPLASTIN TIME 27.2 SECONDS (24.2-38.5)
[2021-04-04 18:00] VITALS: BP 150/88
--- NOTE | 2021-04-04 20:06 | ECGEPIP ---
[facility] - ED Test Date: 2021-04-04 Pat Name: DELIA RENNER Department: Room: - Gender: Male Order Expediter: TRACEYILANA : 1960 Requested By: ROSA Hampton Order Number: [id number] Reading MD: Ty Hayes Measurements Intervals [place] Rate: 68 P: 77 MT: 162 QRS: 63 QRSD: 72 T: 65 QT: 408 QTc: 433 Interpretive Statements Normal sinus rhythm SIMILAR TO 08/11/20 Electronically Signed on 04-04-2021 20:06:38 EDT by Ty Hayes
[2021-04-04] MEDS: SALMETEROL DISKUS 50MCG INHALER (SEREVENT) INH SCH (20:15)
[2021-04-04] MEDS: FLUTICASONE HFA 220 MCG 12 GM INHALER (FLOVENT) INH SCH (20:15)
[2021-04-04] MEDS ORDERED: ADVAIR HFA 230/21MCG INHALER INH SCH (21:00)
[2021-04-04 22:00] VITALS: BP 165/79
[2021-04-05] MEDS: NS 1,000 ML IV SCH ×2 (02:22→18:32)
[2021-04-05 06:00] VITALS: BP 158/68
[2021-04-05 06:00] LABS: HEMATOCRIT 41.6 % (42.0-52.0); HEMOGLOBIN 13.8 g/dl (13.5-17.5); MEAN CORPUSCULAR HEMOGLOBIN 29.2 pg (27.0-33.0); MEAN CORPUSCULAR HGB CONC 33.2 g/dl (32.0-36.5); MEAN CORPUSCULAR VOLUME 88.1 fl (80.0-96.0); PLATELET COUNT, AUTOMATED 208 10^3/uL (150-450); RED BLOOD COUNT 4.72 10^6/uL (4.30-6.10); WHITE BLOOD COUNT 4.7 10^3/uL (4.0-10.0)
[2021-04-05 06:50] LABS: ALBUMIN 3.4 GM/DL (3.2-5.2); ALT/SGPT 11 U/L (12-78); BILIRUBIN,TOTAL 0.6 MG/DL (0.2-1.0); BLOOD UREA NITROGEN 6 MG/DL (7-18); CALCIUM LEVEL 9.1 MG/DL (8.8-10.2); CARBON DIOXIDE LEVEL 24 MEQ/L (21-32); CHLORIDE LEVEL 108 MEQ/L (98-107); CREATININE FOR GFR 0.67 MG/DL (0.70-1.30); GLOMERULAR FILTRATION RATE > 60.0 (>49); GLUCOSE, FASTING 72 MG/DL (70-100); POTASSIUM SERUM 3.6 MEQ/L (3.5-5.1); SODIUM LEVEL 139 MEQ/L (136-145); TOTAL PROTEIN 6.9 GM/DL (6.4-8.2)
[2021-04-05] MEDS: SALMETEROL DISKUS 50MCG INHALER (SEREVENT) INH SCH ×2 (07:52→20:15)
[2021-04-05] MEDS ORDERED: ENOXAPARIN 40MG/0.4ML SYRINGE (J1650 PER 10MG) SC SCH (09:00)
[2021-04-05 11:06] VITALS: BP 158/68
[2021-04-05] MEDS: FERROUS SULFATE 325MG TAB PO SCH ×2 (11:06→11:27)
[2021-04-05] MEDS: ATORVASTATIN 20 MG TAB PO SCH ×2 (11:07→11:27)
[2021-04-05] MEDS: ASPIRIN 81 MG CHEW TABLET PO SCH ×2 (11:07→11:27)
[2021-04-05] MEDS: allopurinoL 100 MG TAB PO SCH ×2 (11:07→11:28)
[2021-04-05] MEDS: SPIRONOLACTONE 25 MG TAB PO SCH ×2 (11:07→11:27)
[2021-04-05] MEDS: SERTRALINE HCL 25 MG TABLET PO SCH ×2 (11:07→11:28)
[2021-04-05] MEDS: OMEPRAZOLE 20 MG CAP PO SCH ×2 (11:08→11:28)
[2021-04-05] MEDS ORDERED: HALOPERIDOL 5MG/ML VIAL (J1630 PER 1) IV PRN (13:40)
[2021-04-05] MEDS: QUEtiapine FUMARATE 25 MG TAB PO SCH ×4 (13:40→21:54)
--- NOTE | 2021-04-05 13:46 | IPNPDOC ---
Date Seen The patient was seen on 04/05/21. Progress Note SUBJECTIVE: Refusing PO meds today. Increased agitation, aggression towards nursing staff. Getting up out of bed. Ordered seroquel but if this does not work then trying haldol. Will need MRI to r/o acute or chronic neurological causes of worsening dementia with now behaviors, as this is not new per . BCx x 1 in set is + for gram pos clusters, repeated blood cultures as this may be contaminant. Will need to r/o metabolic/infectious / neurological causes of worsening mental status changes before consulting psychiatry. This AM he was fixated on his teeth, stated they were painful and were going to fall out- examined mouth and no loose teeth. Also obsessed with his mouth, spitting into emesis bag and wanting to brush his teeth multiple times a day. He had no complaints of chest pain, SOB, fevers, chills, n/v/d. OBJECTIVE: PHYSICAL EXAMINATION: VS: Please see below CONSTITUTIONAL: agitated male, sitting up in chair at bedside. Ox 1 to self- did not know he was at the hospital, says he just returned from [place], did not know time. EYES: PERRLA, EOM intact HENT, MOUTH: Normocephalic, atraumatic, moist mucous membranes, poor dental hygiene NECK: SUPPLE, no JVD, no lymphadenopathy, no carotid bruit CV: Regular rate and rhythm, S1S2 normal, no murmurs/rubs/gallops, no extremity edema RESPIRATORY: Clear to auscultation bilaterally, no rales/rhonchi/wheezes GI: well healed scars on abdomen where prior FT was. BS positive in 4 quadrants, soft, nontender, nondistended, no rebound or guarding, no organomegaly : Deferred MUSCULOSKELETAL: Normal ROM. No cyanosis, clubbing, swelling, joint deformity, extremity edema INTEGUMENTARY: Intact, no rashes, no lesions, no erythema. see above under GI NEUROLOGIC: No focal deficits PSYCHIATRIC: Confused, agitated and argumentative at times LABORATORY DATA: Please see below MICROBIOLOGY: BCx x 1 bottle in set: gram pos cocci in clusters UA neg F/u repeat BCx IMAGING: CXR: Diffuse chronic fibrosis/interstitial disease. No obvious acute process identified. If the patient remains symptomatic consider chest CT for further investigation. CT head: There is been no significant change compared to the prior exam. Patchy areas of deep cerebral white matter ischemic change is noted status quo. There is no evidence of acute intracranial pathology. Consider follow-up with MRI if clinically relevant. MRA brain 01/2020: Vertebral basilar insufficiency with very poor visualization of flow signal in a short segment of basilar artery only. No flow signal is seen in the distal vertebral arteries. The posterior communicating arteries are patent and posterior circulation shows diminished flow but bilateral patency. ASSESSMENT: 60-year-old male with past medical history of CVA, pulmonary embolism with IVC filter placed, protein calorie malnutrition, dysphagia, dementia without behavioral disturbance, history of alcohol dependence, iron deficiency anemia, COPD, major depressive disorder, hypertension, aortic valve disorder admitted for r/o dysphagia, increased confusion/encephalopathy r/o metabolic cause vs. behavioral. PLAN: Increased confusion, r/o metabolic/infectious or neurological causes of encephalopathy vs. worsening chronic dementia now with behaviors -Increased agitation, at times aggressive per -Ammonia 35 on admission but normalized without treatment, normal AST/ALT -BCx Pos 1/ bottles gram pos cocci, repeat cx pending- possibly contaminant -UA neg -WBC wnl, afebrile, no other s/s of infection, LA wnl -CT head: above -MRA head from 01/2020 above -F/u repeat cx -Started seroquel BID, haldol PRN with aggressive behaviors. MRI brain ordered but may be challenging to get with current state. If infection and metabolic causes ruled out, consider neurological and psych consult. -Daily labs, sitter Gram pos bacteremia -/ bottles + -No incr WBC, fever, open lesions -UA neg -CXR: no infection -No murmurs on exam to indicate reason for echocardiogram -F/u repeat BCx, holding off on treating, daily labs Rhinovirus/enterovirus +, asymptomatic -No SOB or respiratory symptoms -conservative care Dysphagia with increased secretions -hx of CVA with hx of dysphagia requiring G tube- was previously on diet of pureed, thin liquids with jevity 1.5 bolus 360 cc 4x/d in past. tube was pulled late 2019 or Nov 2020- could not remember -Worsened dysphagia over past 1 month, at times was told patient cannot swallow secretions -CXR above- no concern for aspiration PNA -ST: pureed diet with thin liquids -ST stated she was to review again today to see if additional imaging is needed. -IVFs needed to be held due to increased agitation due to IV Hx of alcohol related dementia with no documented behavioral disturbance/MDD? -Increased behaviors, aggression, agitation -Does not follow with behavioral health outside hospital. -Added seroquel BID if takes PO, added haldol PRN -Sitter, if continues to be hard to control consider psych to help control -MRI ordered for further investigating into change of dementia now with behaviors (developing over time) COPD -Stable on RA -CXR above -C/w home med equivalents Hx of protein calorie malnutrition -BMI 23, thin but does not appear cachectic -F/u nutritional evaluation Hx of CVA -No new focal deficits, baseline confusion -ASA, statin Hx of PE, s/p IVC filter placement 2019 -Not on oral AC -SCD/teds HTN -Slightly high in ER -Resume home meds when able Hx of constipation -C/w bowel regimen from home GERD -PPI DVT px -SCD/teds , CI with hx of GI bleed DISPOSITION: Patient is admitted under inpatient status. May need psych consult if behaviors continue. Sitter. Per , plan was home if able at discharge but advised PFS to confirm with her. VS, I&O, 24H, Fishbone Vital Signs/I&O Vital Signs Date Time Temp Pulse Resp B/P (MAP) Pulse Ox O2 Delivery O2 Flow Rate FiO2 04/05/21 11:06 49 158/68 04/05/21 06:00 97.4 18 98 Room Air I&O- Last 24 Hours up to 6 AM 04/05/21 06:00 Intake Total 1420 ml Output Total 200 ml Balance 1220 ml Laboratory Data 24H LABS Laboratory Tests 2 04/04/21 14:55: Ammonia < 10 04/04/21 16:39: Prothrombin Time 13.7, Prothromb Time International Ratio 1.03, Activated Partial Thromboplast Time 27.2 04/05/21 05:49: Nucleated Red Blood Cells % (auto) 0.0, Anion Gap 7L, Glomerular Filtration Rate > 60.0, Calcium Level 9.1, Total Bilirubin 0.6, Aspartate Amino Transf (AST/SGOT) 13, Alanine Aminotransferase (ALT/SGPT) 11L, Alkaline Phosphatase 113, Total Protein 6.9, Albumin 3.4, Albumin/Globulin Ratio 1.0 CBC/BMP Laboratory Tests 04/05/21 05:49 Microbiology Microbiology 04/04/21 Respiratory Virus Panel (PCR) (DAR) - Final, Complete Human Rhinovirus/Enterovirus 04/04/21 Blood Culture - Preliminary, Resulted No growth after 24 hours . All specim... 04/04/21 Blood Culture - Preliminary, Resulted Esme Morris MD April 05, 2021 13:46
[2021-04-05 14:00] VITALS: BP 150/86
[2021-04-05] MEDS: TIOTROPIUM INHALER/CAPSULE (SPIRIVA) INH SCH (20:15)
[2021-04-05] MEDS: FLUTICASONE HFA 220 MCG 12 GM INHALER (FLOVENT) INH SCH (20:15)
[2021-04-05 22:00] VITALS: BP 168/89
[2021-04-06] MEDS: NS 1,000 ML IV SCH (07:27)
[2021-04-06] MEDS: SALMETEROL DISKUS 50MCG INHALER (SEREVENT) INH SCH ×2 (08:01→21:00)
[2021-04-06 08:16] LABS: HEMOGLOBIN 13.3 g/dl (13.5-17.5); MEAN CORPUSCULAR HEMOGLOBIN 29.4 pg (27.0-33.0); MEAN CORPUSCULAR HGB CONC 33.3 g/dl (32.0-36.5); MEAN CORPUSCULAR VOLUME 88.3 fl (80.0-96.0); PLATELET COUNT, AUTOMATED 204 10^3/uL (150-450); RED BLOOD COUNT 4.53 10^6/uL (4.30-6.10); WHITE BLOOD COUNT 4.1 10^3/uL (4.0-10.0)
[2021-04-06 08:47] LABS: ALT/SGPT 10 U/L (12-78); BILIRUBIN,TOTAL 0.6 MG/DL (0.2-1.0); BLOOD UREA NITROGEN 8 MG/DL (7-18); CALCIUM LEVEL 8.9 MG/DL (8.8-10.2); CARBON DIOXIDE LEVEL 27 MEQ/L (21-32); CHLORIDE LEVEL 110 MEQ/L (98-107); CREATININE FOR GFR 0.67 MG/DL (0.70-1.30); GLOMERULAR FILTRATION RATE > 60.0 (>49); GLUCOSE, FASTING 75 MG/DL (70-100); POTASSIUM SERUM 3.1 MEQ/L (3.5-5.1); SODIUM LEVEL 141 MEQ/L (136-145); TOTAL PROTEIN 6.6 GM/DL (6.4-8.2)
[2021-04-06] MEDS: QUEtiapine FUMARATE 25 MG TAB PO SCH (11:30)
[2021-04-06] MEDS: ATORVASTATIN 20 MG TAB PO SCH (11:47)
[2021-04-06] MEDS: OMEPRAZOLE 20 MG CAP PO SCH (11:47)
[2021-04-06] MEDS: FERROUS SULFATE 325MG TAB PO SCH (11:48)
--- NOTE | 2021-04-06 14:12 | IPNPDOC ---
Date Seen The patient was seen on 04/06/21. Progress Note SUBJECTIVE: Increased agitation, aggressive behavior toward staff overnight. Received haldol overnight. Discussed case with psychiatry, Dr. Sebastian who recommend ATC haldol, PRN ativan in between. Repeat BCx pending. Refusing PO meds and food still. Slightly more cooperative for me today. He had no complaints of chest pain, SOB, fevers, chills, n/v/d. OBJECTIVE: PHYSICAL EXAMINATION: VS: Please see below CONSTITUTIONAL: resting in bed. Ox 1 to self only EYES: PERRLA, EOM intact HENT, MOUTH: Normocephalic, atraumatic, moist mucous membranes, poor dental hygiene NECK: SUPPLE, no JVD, no lymphadenopathy, no carotid bruit CV: Regular rate and rhythm, S1S2 normal, no murmurs/rubs/gallops, no extremity edema RESPIRATORY: Clear to auscultation bilaterally, no rales/rhonchi/wheezes GI: well healed scars on abdomen where prior FT was. BS positive in 4 quadrants, soft, nontender, nondistended, no rebound or guarding, no organomegaly : Deferred MUSCULOSKELETAL: Normal ROM. No cyanosis, clubbing, swelling, joint deformity, extremity edema INTEGUMENTARY: Intact, no rashes, no lesions, no erythema. see above under GI NEUROLOGIC: No focal deficits PSYCHIATRIC: Confused but not agitated LABORATORY DATA: Please see below MICROBIOLOGY: BCx x 1 bottle in set: gram pos cocci in clusters UA neg F/u repeat BCx IMAGING: CXR: Diffuse chronic fibrosis/interstitial disease. No obvious acute process identified. If the patient remains symptomatic consider chest CT for further investigation. CT head: There is been no significant change compared to the prior exam. Patchy areas of deep cerebral white matter ischemic change is noted status quo. There is no evidence of acute intracranial pathology. Consider follow-up with MRI if clinically relevant. MRA brain 01/2020: Vertebral basilar insufficiency with very poor visualization of flow signal in a short segment of basilar artery only. No flow signal is seen in the distal vertebral arteries. The posterior communicating arteries are patent and posterior circulation shows diminished flow but bilateral patency. ASSESSMENT: 60-year-old male with past medical history of CVA, pulmonary embolism with IVC filter placed, protein calorie malnutrition, dysphagia, dementia without behavioral disturbance, history of alcohol dependence, iron deficiency anemia, COPD, major depressive disorder, hypertension, aortic valve disorder admitted for r/o dysphagia, increased confusion/encephalopathy r/o metabolic cause vs. behavioral. PLAN: Increased confusion, r/o metabolic/infectious vs. worsening chronic dementia (believed to have been from prior alcohol abuse) now with behaviors -Increased agitation, aggressive with staff overnight after haldol 1 mg administration -Not taking pills but was able to give 25 mg seroquel today only -BCx Pos 1/4 bottles gram pos cocci, repeat cx pending- likely contaminant -UA neg -WBC wnl, afebrile, no other s/s of infection, LA wnl -CT head: above -MRA head from 01/2020 above -F/u repeat BCx, unable to do MRI brain due to patient not being cooperative. -Discussed with psychiatry, consulted them to see. Recommended starting Haldol ATC, ativan PRN. -Daily labs, sitter Gram pos bacteremia -1/4 bottles + -No incr WBC, fever, open lesions -UA neg -CXR: no infection -No murmurs on exam to indicate reason for echocardiogram -F/u repeat BCx, holding off on treating, daily labs Rhinovirus/enterovirus +, asymptomatic -No SOB or respiratory symptoms -conservative care Dysphagia with increased secretions -hx of CVA with hx of dysphagia requiring G tube- was previously on diet of pureed, thin liquids with jevity 1.5 bolus 360 cc 4x/d in past. tube was pulled late 2019 or Nov 2020- could not remember -Worsened dysphagia over past 1 month, at times was told patient cannot swallow secretions -CXR above- no concern for aspiration PNA -ST unable to do further evaluation or testing due to behaviors above -Per ST: started on pureed diet with thin liquids -IVFs needed to be held due to increased agitation Hx of alcohol related dementia with no prior documented behavioral disturbance/MDD? -Increased behaviors, aggression, agitation -Does not follow with behavioral health or neurology outside hospital. -c/w plan above -Sitter -Unable to do MRI -Psych consulted, Dr. Sebastian COPD -Stable on RA -CXR above -C/w home med equivalents Hx of protein calorie malnutrition -BMI 23, thin but does not appear cachectic -F/u nutritional evaluation Hx of CVA -No new focal deficits -ASA, statin Hx of PE, s/p IVC filter placement 2019 -Not on oral AC -SCD/teds HTN -Slightly high in ER -Resume home meds when able Hx of constipation -C/w bowel regimen from home GERD -PPI DVT px -SCD/teds , CI with hx of GI bleed DISPOSITION: Patient is admitted under inpatient status. Psych consulted to see. Sitter. Per , plan is hopefully home with her. With behaviors this may change, will continue to see if further improvement is seen. VS, I&O, 24H, Fishbone Vital Signs/I&O Vital Signs Date Time Temp Pulse Resp B/P (MAP) Pulse Ox O2 Delivery O2 Flow Rate FiO2 04/05/21 22:00 96.9 54 20 168/89 (115) 96 Room Air I&O- Last 24 Hours up to 6 AM 04/06/21 06:00 Intake Total 1100 ml Output Total 0 ml Balance 1100 ml Laboratory Data 24H LABS Laboratory Tests 2 04/06/21 07:58: Nucleated Red Blood Cells % (auto) 0.0, Anion Gap 4L, Glomerular Filtration Rate > 60.0, Calcium Level 8.9, Total Bilirubin 0.6, Aspartate Amino Transf (AST/SGOT) 10, Alanine Aminotransferase (ALT/SGPT) 10L, Alkaline Phosphatase 99, Total Protein 6.6, Albumin 3.0L, Albumin/Globulin Ratio 0.8 CBC/BMP Laboratory Tests 04/06/21 07:58 Microbiology Microbiology 04/05/21 Blood Culture, Received Pending 04/05/21 Blood Culture, Received Pending 04/04/21 Respiratory Virus Panel (PCR) (DAR) - Final, Complete Human Rhinovirus/Enterovirus 04/04/21 Blood Culture - Preliminary, Resulted No Growth after 48 hours. All Specime... 04/04/21 Blood Culture - Preliminary, Resulted Esme Morris MD April 06, 2021 14:12
[2021-04-06] MEDS: ASPIRIN 81 MG CHEW TABLET PO SCH (14:17)
[2021-04-06] MEDS ORDERED: POTASSIUM CHLORIDE 10% LIQ 20 MEQ/15 ML UDC PO ONE (14:30)
[2021-04-06] MEDS: KCL 40MEQ IN D5/0.45NS 1000ML 1,000 ML IV SCH (15:04)
[2021-04-06] MEDS: SPIRONOLACTONE 25 MG TAB PO SCH (15:45)
[2021-04-06] MEDS: HALOPERIDOL 5MG/ML VIAL (J1630 PER 1) IV SCH ×2 (16:00→20:00)
[2021-04-06] MEDS: SERTRALINE HCL 25 MG TABLET PO SCH (16:21)
[2021-04-06] MEDS: allopurinoL 100 MG TAB PO SCH (16:22)
[2021-04-06 20:37] LABS: BLOOD UREA NITROGEN 7 MG/DL (7-18); CALCIUM LEVEL 8.6 MG/DL (8.8-10.2); CARBON DIOXIDE LEVEL 26 MEQ/L (21-32); CHLORIDE LEVEL 110 MEQ/L (98-107); CREATININE FOR GFR 0.71 MG/DL (0.70-1.30); GLOMERULAR FILTRATION RATE > 60.0 (>49); GLUCOSE, FASTING 99 MG/DL (70-100); POTASSIUM SERUM 3.7 MEQ/L (3.5-5.1); SODIUM LEVEL 141 MEQ/L (136-145)
[2021-04-06] MEDS: FLUTICASONE HFA 220 MCG 12 GM INHALER (FLOVENT) INH SCH (21:01)
[2021-04-06] MEDS: TIOTROPIUM INHALER/CAPSULE (SPIRIVA) INH SCH (21:01)
[2021-04-06 22:00] VITALS: BP 148/80
[2021-04-07] MEDS: KCL 40MEQ IN D5/0.45NS 1000ML 1,000 ML IV SCH (00:27)
[2021-04-07] MEDS: HALOPERIDOL 5MG/ML VIAL (J1630 PER 1) IV SCH ×4 (02:00→20:15)
[2021-04-07 06:00] VITALS: BP 146/86
[2021-04-07 06:34] LABS: HEMATOCRIT 38.1 % (42.0-52.0); HEMOGLOBIN 12.6 g/dl (13.5-17.5); MEAN CORPUSCULAR HEMOGLOBIN 29.2 pg (27.0-33.0); MEAN CORPUSCULAR HGB CONC 33.1 g/dl (32.0-36.5); MEAN CORPUSCULAR VOLUME 88.2 fl (80.0-96.0); PLATELET COUNT, AUTOMATED 215 10^3/uL (150-450); RED BLOOD COUNT 4.32 10^6/uL (4.30-6.10); WHITE BLOOD COUNT 4.4 10^3/uL (4.0-10.0)
[2021-04-07 06:36] VITALS: BP 177/81
[2021-04-07 07:00] LABS: ALBUMIN 2.9 GM/DL (3.2-5.2); ALT/SGPT 9 U/L (12-78); BILIRUBIN,TOTAL 0.5 MG/DL (0.2-1.0); BLOOD UREA NITROGEN 6 MG/DL (7-18); CALCIUM LEVEL 8.6 MG/DL (8.8-10.2); CARBON DIOXIDE LEVEL 23 MEQ/L (21-32); CHLORIDE LEVEL 111 MEQ/L (98-107); CREATININE FOR GFR 0.64 MG/DL (0.70-1.30); GLOMERULAR FILTRATION RATE > 60.0 (>49); GLUCOSE, FASTING 89 MG/DL (70-100); POTASSIUM SERUM 4.1 MEQ/L (3.5-5.1); SODIUM LEVEL 140 MEQ/L (136-145)
[2021-04-07] MEDS: SPIRONOLACTONE 25 MG TAB PO SCH (09:00)
[2021-04-07] MEDS: ASPIRIN 81 MG CHEW TABLET PO SCH (09:00)
[2021-04-07] MEDS: SALMETEROL DISKUS 50MCG INHALER (SEREVENT) INH SCH (09:00)
[2021-04-07] MEDS: FERROUS SULFATE 325MG TAB PO SCH (09:00)
[2021-04-07] MEDS: ATORVASTATIN 20 MG TAB PO SCH (09:00)
[2021-04-07] MEDS: OMEPRAZOLE 20 MG CAP PO SCH (09:00)
[2021-04-07] MEDS: SERTRALINE HCL 25 MG TABLET PO SCH (09:00)
[2021-04-07] MEDS: allopurinoL 100 MG TAB PO SCH (09:00)
[2021-04-07 14:00] VITALS: BP 146/76
--- NOTE | 2021-04-07 16:05 | IPNPDOC ---
Date Seen The patient was seen on 04/07/21. Progress Note SUBJECTIVE: Agitated overnight according to day nurse with haldol schedule being held by nursing? Why was not clear. No aggression documented today. This AM ECG showed QTc 416, given haldol this AM, was very calm and cooperative on exam later in the AM. Will need to see how he tolerates haldol and monitor ECG daily while on it to see if this helps with him taking other PO meds. Consulted psych (Dr. Sebastian) on 04/06/21, no note seen yet but could be waiting to be transcribed. Repeat BCx neg. He had no complaints of chest pain, SOB, fevers, chills, n/v/d. OBJECTIVE: PHYSICAL EXAMINATION: VS: Please see below CONSTITUTIONAL: resting in bed. Ox 1 to self only, not to place or reason as to why he is here. , cooperative EYES: PERRLA, EOM intact HENT, MOUTH: Normocephalic, atraumatic, moist mucous membranes, poor dentition NECK: SUPPLE, no JVD, no lymphadenopathy, no carotid bruit CV: Regular rate and rhythm, S1S2 normal, no murmurs/rubs/gallops, no extremity edema RESPIRATORY: Clear to auscultation bilaterally, no rales/rhonchi/wheezes GI: well healed scars on abdomen where prior FT was. BS positive in 4 quadrants, soft, nontender, nondistended, no rebound or guarding, no o rganomegaly : Deferred MUSCULOSKELETAL: Normal ROM. No cyanosis, clubbing, swelling, joint deformity, extremity edema INTEGUMENTARY: Intact, no rashes, no lesions, no erythema. see above under GI NEUROLOGIC: No focal deficits PSYCHIATRIC: Confused but not agitated LABORATORY DATA: Please see below MICROBIOLOGY: BCx x 1 bottle in set from admission: Staph epidermidis Bcx x 1 set from admission: NG UA neg Repeat BCx: NG x 2 sets IMAGING: CXR: Diffuse chronic fibrosis/interstitial disease. No obvious acute process identified. If the patient remains symptomatic consider chest CT for further investigation. CT head: There is been no significant change compared to the prior exam. Patchy areas of deep cerebral white matter ischemic change is noted status quo. There is no evidence of acute intracranial pathology. Consider follow-up with MRI if clinically relevant. MRA brain 01/2020: Vertebral basilar insufficiency with very poor visualization of flow signal in a short segment of basilar artery only. No flow signal is seen in the distal vertebral arteries. The posterior communicating arteries are patent and posterior circulation shows diminished flow but bilateral patency. ASSESSMENT: 60-year-old male with past medical history of CVA, pulmonary embolism with IVC filter placed, protein calorie malnutrition, dysphagia, dementia without behavioral disturbance, history of alcohol dependence, iron deficiency anemia, COPD, major depressive disorder, hypertension, aortic valve disorder admitted for r/o dysphagia, increased confusion/encephalopathy r/o metabolic cause vs. behavioral. PLAN: Increased confusion likely 2/2 to worsening chronic dementia (believed to have been from prior alcohol abuse) now with behaviors -Increased agitation, aggressive with staff. Did not receive scheduled haldol over the night for reasons not documented -Taking pills crushed only intermittently, paranoid at times about food and medicine -WBC wnl, afebrile, no other s/s of infection, LA wnl -All cx NG except for one blood culture which is likely contaminated -CT head: above -MRA head from 01/2020 above -Unable to do MRI brain due to patient not being cooperative previously; however, now that he is getting haldol scheduled and is more cooperative, may consider doing on 04/09/21 after weekend -Discussed with psychiatry (Dr. Sebastian) who was consulted to see, note not transcribed yet but discussed plan in detail. -C/w Haldol ATC, ativan PRN. Over 24 hour period of time, can see how much is required and if working well. Can possibly transition to PO form and/or other meds if allows. -Daily labs, sitter Staphylococcus epidermidis bacteremia- likely contaminant -11/20 bottles +, repeat BCx NG -No incr WBC, fever, open lesions -UA neg -CXR: no infection -No murmurs on exam to indicate reason for echocardiogram Dysphagia with increased secretions / protein calorie malnutrition -Hx of CVA with hx of dysphagia requiring G tube- was previously on diet of pureed, thin liquids with jevity 1.5 bolus 360 cc 4x/d in past. tube was pulled late 2019 or Nov 2020 -Worsened dysphagia over past 1 month, at times was told patient cannot swallow secretions -CXR above- no concern for aspiration PNA -ST unable to do further evaluation or testing due to behaviors above -Per ST: started on pureed diet with thin liquids -IVFs needed to be held due to increased agitation -Supplements per nutrition. -If poor intake continues, will need to discuss alternatives Hx of alcohol related dementia with no prior documented behavioral disturbance/MDD? -Increased behaviors, aggression, agitation -Does not follow with behavioral health or neurology outside hospital. -c/w plan above, sitter, haldol ATC and ativan PRN (watch ECG and QTc closely) -Psych consulted, Dr. Sebastian Hypokalemia, acute likely 2/2 to decreased PO intake -K wnl today -F/u AM labs Rhinovirus/enterovirus +, asymptomatic -No SOB or respiratory symptoms -conservative care COPD -Stable on RA -CXR above -C/w home med equivalents Hx of CVA -No new focal deficits -ASA, statin Hx of PE, s/p IVC filter placement 2019 -Not on oral AC -SCD/teds HTN -Home meds Hx of constipation -C/w bowel regimen from home GERD -PPI DVT px -SCD/teds , CI with hx of GI bleed DISPOSITION: Patient is admitted under inpatient status. Psych has made recommendations, will see how he does on current regimen. Bryantter. Per , plan is hopefully home with her. VS, I&O, 24H, Fishbone Vital Signs/I&O Vital Signs Date Time Temp Pulse Resp B/P (MAP) Pulse Ox O2 Delivery O2 Flow Rate FiO2 04/07/21 14:00 96.3 56 20 146/76 (99) 97 Room Air I&O- Last 24 Hours up to 6 AM 04/07/21 06:00 Intake Total 790 ml Output Total 0 ml Balance 790 ml Laboratory Data 24H LABS Laboratory Tests 2 04/06/21 19:59: Anion Gap 5L, Glomerular Filtration Rate > 60.0, Calcium Level 8.6L 04/07/21 06:18: Anion Gap 6L, Glomerular Filtration Rate > 60.0, Calcium Level 8.6L, Nucleated Red Blood Cells % (auto) 0.0, Total Bilirubin 0.5, Aspartate Amino Transf (AST/SGOT) 9, Alanine Aminotransferase (ALT/SGPT) 9L, Alkaline Phosphatase 96, Total Protein 6.0L, Albumin 2.9L, Albumin/Globulin Ratio 0.9 CBC/BMP Laboratory Tests 04/06/21 19:59 04/07/21 06:18 Microbiology Microbiology 04/05/21 Blood Culture - Preliminary, Resulted No Growth after 48 hours. All Specime... 04/05/21 Blood Culture - Preliminary, Resulted No Growth after 48 hours. All Specime... 04/04/21 Respiratory Virus Panel (PCR) (DAR) - Final, Complete Human Rhinovirus/Enterovirus 04/04/21 Blood Culture - Preliminary, Resulted No Growth after 72 hours. All specime... 04/04/21 Blood Culture - Final, Complete Staphylococcus Epidermidis Esme Morris MD April 07, 2021 16:05
[2021-04-07] MEDS: FLUTICASONE HFA 220 MCG 12 GM INHALER (FLOVENT) INH SCH (21:00)
[2021-04-07] MEDS: TIOTROPIUM INHALER/CAPSULE (SPIRIVA) INH SCH (21:00)
--- NOTE | 2021-04-07 21:41 | ECGEPIP ---
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
[2021-04-07 22:00] VITALS: BP 156/74
[2021-04-08] MEDS ORDERED: BENZOCAINE 20% GEL 9GM TUBE (ANBESOL MAX STRENGTH) TOP PRN (01:15)
[2021-04-08] MEDS: HALOPERIDOL 5MG/ML VIAL (J1630 PER 1) IV SCH ×4 (02:00→20:12)
[2021-04-08 06:00] VITALS: BP 149/66
[2021-04-08 08:35] LABS: HEMATOCRIT 40.5 % (42.0-52.0); MEAN CORPUSCULAR HEMOGLOBIN 28.5 pg (27.0-33.0); MEAN CORPUSCULAR HGB CONC 32.1 g/dl (32.0-36.5); MEAN CORPUSCULAR VOLUME 88.8 fl (80.0-96.0); PLATELET COUNT, AUTOMATED 200 10^3/uL (150-450); RED BLOOD COUNT 4.56 10^6/uL (4.30-6.10)
[2021-04-08] MEDS: SALMETEROL DISKUS 50MCG INHALER (SEREVENT) INH SCH ×2 (09:00→19:39)
[2021-04-08 09:01] LABS: BLOOD UREA NITROGEN 4 MG/DL (7-18); CARBON DIOXIDE LEVEL 28 MEQ/L (21-32); CHLORIDE LEVEL 107 MEQ/L (98-107); CREATININE FOR GFR 0.76 MG/DL (0.70-1.30); GLOMERULAR FILTRATION RATE > 60.0 (>49); GLUCOSE, FASTING 81 MG/DL (70-100); POTASSIUM SERUM 3.8 MEQ/L (3.5-5.1); SODIUM LEVEL 140 MEQ/L (136-145)
[2021-04-08] MEDS: FERROUS SULFATE 325MG TAB PO SCH ×2 (09:03→10:13)
[2021-04-08] MEDS: ATORVASTATIN 20 MG TAB PO SCH ×2 (09:03→10:13)
[2021-04-08] MEDS: SPIRONOLACTONE 25 MG TAB PO SCH ×2 (09:03→10:12)
[2021-04-08] MEDS: allopurinoL 100 MG TAB PO SCH ×2 (09:03→10:14)
[2021-04-08] MEDS: ASPIRIN 81 MG CHEW TABLET PO SCH ×2 (09:03→10:13)
[2021-04-08] MEDS: OMEPRAZOLE 20 MG CAP PO SCH ×2 (09:03→10:13)
[2021-04-08] MEDS: SERTRALINE HCL 25 MG TABLET PO SCH ×2 (09:03→10:14)
--- NOTE | 2021-04-08 13:05 | MHCR ---
[facility] CONSULTATION DATE: 04/06/2021 HISTORY OF PRESENT ILLNESS: I was asked to see this 60-year-old man with dementia and status post stroke and with increasing agitation and aggressive behavior. He was aggressive with and also aggressive with staff yesterday. He is not eating and he will not take any medications. It was reported and the verified that the patient was wandering and going to the neighbors, and the , at this point, is basically fearing she is not able to deal with him at home because of his being uncooperative and aggressive. The patient apparently does not show any evidence that he is having any kind of infections at this point. PAST PSYCHIATRIC HISTORY: This patient does not actually have any past psychiatric history and the patient, according to the , does not have a history of any suicides. FAMILY HISTORY: The does not know if there is any significant family history. MEDICAL HISTORY: As noted, he has a history of CVA, pulmonary embolism, dysphagia, iron deficiency anemia, chronic obstructive pulmonary disease (COPD), hypertension, and history of alcohol abuse, but has not drank in a while. SUBSTANCE ABUSE: He has a history of alcohol abuse, but has not drank in a while now. ABUSE HISTORY: This is unknown. MENTAL STATUS EXAMINATION: The patient is really not able to cooperate with the interview at all and so I am not really able to do any mental status exam. DIAGNOSIS: Neurocognitive disorder. TREATMENT PLAN: So, at this point, basically I am going to start him on some medications to see if we could help diminish his agitation and aggression, and so my recommendation is, since the patient was not cooperative with taking Seroquel, that we treat him with Haldol 2 mg every 6 hours for agitation, and the primary care provider wants to give the Haldol through intravenous method, and we will use Ativan 1 mg every 4 hours as needed for agitation, but we will try to use only the Ativan if absolutely necessary because sometimes benzodiazepine can worsen the confusion. I spoke with the that was at the bedside. She knows that all the antipsychotics can potentially increase the risk of stroke and she says that he has already had a stroke and that she really wants the patient to be treated because she cannot take him home and deal with him in the current agitated and aggressive state that he is in, and so once the patient, if he becomes cooperative, then it might be a good idea to switch the Haldol over to Seroquel. Please re-consult as needed.
[2021-04-08 14:00] VITALS: BP 146/79
--- NOTE | 2021-04-08 16:38 | IPNPDOC ---
Date Seen The patient was seen on 04/08/21. Progress Note SUBJECTIVE: Improved with haldol 2mg as scheduled. Not required ativan PRN. Refusing medications still according to nursing. QTc this AM wnl. Psych note still not transcribed. Cooperative this AM for myself, ordered MRI in AM to see if he can tolerate. No complaints by patient. OBJECTIVE: PHYSICAL EXAMINATION: VS: Please see below CONSTITUTIONAL: resting in bed. Ox 1 to self only, not to place or reason as to why he is here , cooperative EYES: PERRLA, EOM intact HENT, MOUTH: Normocephalic, atraumatic, moist mucous membranes, poor dentition NECK: SUPPLE, no JVD, no lymphadenopathy, no carotid bruit CV: Regular rate and rhythm, S1S2 normal, no murmurs/rubs/gallops, no extremity edema RESPIRATORY: Clear to auscultation bilaterally, no rales/rhonchi/wheezes GI: well healed scars on abdomen where prior FT was. BS positive in 4 quadrants, soft, nontender, nondistended, no rebound or guarding, no organomegaly : Deferred MUSCULOSKELETAL: Normal ROM. No cyanosis, clubbing, swelling, joint deformity, extremity edema INTEGUMENTARY: Intact, no rashes, no lesions, no erythema. see above under GI NEUROLOGIC: No focal deficits PSYCHIATRIC: Confused but not agitated, following all commands. pleasant LABORATORY DATA: Please see below MICROBIOLOGY: BCx x 1 bottle in set from admission: Staph epidermidis Bcx x 1 set from admission: NG UA neg Repeat BCx: NG x 2 sets IMAGING: CXR: Diffuse chronic fibrosis/interstitial disease. No obvious acute process identified. If the patient remains symptomatic consider chest CT for further investigation. CT head: There is been no significant change compared to the prior exam. Patchy areas of deep cerebral white matter ischemic change is noted status quo. There is no evidence of acute intracranial pathology. Consider follow-up with MRI if clinically relevant. MRA brain 01/2020: Vertebral basilar insufficiency with very poor visualization of flow signal in a short segment of basilar artery only. No flow signal is seen in the distal vertebral arteries. The posterior communicating arteries are patent and posteri or circulation shows diminished flow but bilateral patency. ASSESSMENT: 60-year-old male with past medical history of CVA, pulmonary embolism with IVC filter placed, protein calorie malnutrition, dysphagia, dementia without behavioral disturbance, history of alcohol dependence, iron deficiency anemia, COPD, major depressive disorder, hypertension, aortic valve disorder admitted for r/o dysphagia, increased confusion/encephalopathy r/o metabolic cause vs. behavioral. PLAN: Increased confusion likely 2/2 to worsening chronic dementia (believed to have been from prior alcohol abuse) now with behaviors -Increased agitation, aggression has improved with haldol administration scheduled -Taking pills crushed only intermittently, paranoid at times about food and medicine -WBC wnl, afebrile, no other s/s of infection, LA wnl -All cx NG except for one blood culture which is likely contaminate -CT head: above -MRA head from 01/2020 above -Attempting MRI brain in the AM, can give ativan prior to going -Discussed with psychiatry (Dr. Sebastian) who was to see, note not transcribed yet but discussed plan in detail. -C/w Haldol ATC, ativan PRN. Can possibly transition to PO form and/or other meds if allows. -Daily labs, sitter Staphylococcus epidermidis bacteremia- likely contaminant -11/20 bottles +, repeat BCx NG -No incr WBC, fever, open lesions -UA neg -CXR: no infection -No murmurs on exam to indicate reason for echocardiogram Dysphagia with increased secretions / protein calorie malnutrition -Hx of CVA with hx of dysphagia requiring G tube- was previously on diet of pureed, thin liquids with Jevity 1.5 bolus 360 cc 4x/d in past. tube was pulled late 2019 or Nov 2020 -Worsened dysphagia over past 1 month, at times was told patient cannot swallow secretions -CXR above- no concern for aspiration PNA -ST has been unable to do further evaluation or testing due to behaviors above but now that he is calmer perhaps he will allow. Will update team in the AM to try again. -Per ST: started on pureed diet with thin liquids -IVFs needed to be held due to increased agitation -Supplements per nutrition. -If poor intake continues, will need to discuss alternatives to getting nutrition Hx of alcohol related dementia with no prior documented behavioral disturbance /MDD? -Increased behaviors, aggression, agitation -Does not follow with behavioral health or neurology outside hospital. -c/w plan above, sitter, haldol ATC and ativan PRN (watch ECG and QTc closely) -Psych consulted, Dr. Sebastian- f/u official note Rhinovirus/enterovirus +, asymptomatic -No SOB or respiratory symptoms -conservative care COPD -Stable on RA -CXR above -C/w home med equivalents Hx of CVA -No new focal deficits -ASA, statin Hx of PE, s/p IVC filter placement 2019 -Not on oral AC -SCD/teds HTN -Home meds Hx of constipation -C/w bowel regimen from home GERD -PPI DVT px -SCD/teds , CI with hx of GI bleed Resolved issue: Hypokalemia, acute likely 2/2 to decreased PO intake DISPOSITION: Patient is admitted under inpatient status. Psych has made recommendations- f/u official note and will see how he does on current regimen. Sitter. Per , plan is hopefully home with her. VS, I&O, 24H, [place] Vital Signs/I&O Vital Signs Date Time Temp Pulse Resp B/P (MAP) Pulse Ox O2 Delivery O2 Flow Rate FiO2 04/08/21 14:00 97.3 60 17 146/79 (101) 98 Room Air I&O- Last 24 Hours up to 6 AM 04/08/21 06:00 Intake Total 940 ml Balance 940 ml Laboratory Data 24H LABS Laboratory Tests 2 04/08/21 08:20: Nucleated Red Blood Cells % (auto) 0.0, Anion Gap 5L, Glomerular Filtration Rate > 60.0, Calcium Level 9.0 CBC/BMP Laboratory Tests 04/08/21 08:20 Microbiology Microbiology 04/05/21 Blood Culture - Preliminary, Resulted No Growth after 72 hours. All specime... 04/05/21 Blood Culture - Preliminary, Resulted No Growth after 72 hours. All specime... 04/04/21 Respiratory Virus Panel (PCR) (DAR) - Final, Complete Human Rhinovirus/Enterovirus 04/04/21 Blood Culture - Preliminary, Resulted No Growth after 72 hours. All specime... 04/04/21 Blood Culture - Final, Complete Staphylococcus Epidermidis Esme Morris MD April 08, 2021 16:38
[2021-04-08] MEDS: FLUTICASONE HFA 220 MCG 12 GM INHALER (FLOVENT) INH SCH (19:39)
[2021-04-08] MEDS: TIOTROPIUM INHALER/CAPSULE (SPIRIVA) INH SCH (19:40)
--- NOTE | 2021-04-08 20:56 | ECGEPIP ---
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
[2021-04-08 22:00] VITALS: BP 142/72
[2021-04-09] MEDS: HALOPERIDOL 5MG/ML VIAL (J1630 PER 1) IV SCH ×4 (02:00→20:55)
[2021-04-09 06:00] VITALS: BP 151/74
[2021-04-09] MEDS: SALMETEROL DISKUS 50MCG INHALER (SEREVENT) INH SCH ×2 (07:13→20:10)
[2021-04-09 07:19] LABS: HEMATOCRIT 39.6 % (42.0-52.0); HEMOGLOBIN 12.7 g/dl (13.5-17.5); MEAN CORPUSCULAR HEMOGLOBIN 28.5 pg (27.0-33.0); MEAN CORPUSCULAR HGB CONC 32.1 g/dl (32.0-36.5); PLATELET COUNT, AUTOMATED 187 10^3/uL (150-450); RED BLOOD COUNT 4.45 10^6/uL (4.30-6.10)
[2021-04-09 07:49] LABS: BLOOD UREA NITROGEN 6 MG/DL (7-18); CALCIUM LEVEL 8.9 MG/DL (8.8-10.2); CARBON DIOXIDE LEVEL 29 MEQ/L (21-32); CHLORIDE LEVEL 106 MEQ/L (98-107); CREATININE FOR GFR 0.84 MG/DL (0.70-1.30); GLOMERULAR FILTRATION RATE > 60.0 (>49); GLUCOSE, FASTING 74 MG/DL (70-100); POTASSIUM SERUM 4.3 MEQ/L (3.5-5.1); SODIUM LEVEL 139 MEQ/L (136-145)
[2021-04-09] MEDS: SERTRALINE HCL 25 MG TABLET PO SCH (09:00)
[2021-04-09] MEDS: allopurinoL 100 MG TAB PO SCH (09:00)
[2021-04-09] MEDS: ASPIRIN 81 MG CHEW TABLET PO SCH (09:00)
[2021-04-09] MEDS: ATORVASTATIN 20 MG TAB PO SCH (09:00)
[2021-04-09] MEDS: FERROUS SULFATE 325MG TAB PO SCH (09:00)
[2021-04-09] MEDS: OMEPRAZOLE 20 MG CAP PO SCH (09:00)
[2021-04-09] MEDS: SPIRONOLACTONE 25 MG TAB PO SCH (09:00)
[2021-04-09] MEDS: LORazepam 2 MG/ML VIAL IV PRN ×3 (11:44→21:41)
--- NOTE | 2021-04-09 12:56 | REPVR ---
PROCEDURE INFORMATION: Exam: MR Head Without Contrast Exam date and time: 04/09/2021 6:00 AM Age: 60 years old Clinical indication: Altered mental status/memory loss; Confusion or disorientation; Additional info: R/O neurological cause of worsening dementia TECHNIQUE: Imaging protocol: MR of the head without contrast. COMPARISON: 1. MRI-Brain without Contrast 02/10/2020 2:[address] Head without contrast 04/04/2021 10:10:45 AM FINDINGS: Limitations: There is motion artifact partially degrading examination, predominantly affecting axial T1 and T2 images. No axial FLAIR images are provided. Brain: There is a small chronic microhemorrhage in the left occipital lobe. Diffusion images show no restricted diffusion or acute infarct. The ventricles and sulci are proportionally enlarged, consistent with mild volume loss / atrophy. There is T2 prolongation in the cerebral white matter, consistent with microvascular disease. There is no mass effect or midline shift. There is no acute intracranial hemorrhage. There are no extra-axial fluid collections. Cerebral ventricles: Normal. No ventriculomegaly. Bones/joints: Unremarkable as visualized. Paranasal sinuses: Normal as visualized. No acute sinusitis. Mastoid air cells: No significant mastoid effusion. Orbital cavity: Unremarkable. Soft tissues: Unremarkable as visualized. Other vasculature: Flow voids in main vascular structures are visualized. IMPRESSION: 1. Motion limited examination. No evidence of acute intracranial abnormality. No evidence of acute infarction, acute hemorrhage, or mass producing. 2. Atrophy and microvascular disease. Electronically signed by: Sylvia Villa On 04/09/2021 12:55:58 PM
[2021-04-09 14:00] VITALS: BP 154/88
[2021-04-09] MEDS: TIOTROPIUM INHALER/CAPSULE (SPIRIVA) INH SCH (20:10)
[2021-04-09] MEDS: FLUTICASONE HFA 220 MCG 12 GM INHALER (FLOVENT) INH SCH (20:10)
--- NOTE | 2021-04-09 20:15 | IPNPDOC ---
Date Seen The patient was seen on 04/09/21. Progress Note SUBJECTIVE: Discussed with patient's difficulty with patient often times refusing IV and PO medications. MRI brain done today, addendum made for abnormal finding in C3 vertebrae- look at report . More calm with IV haldol. CT cervical spine in AM. No complaints by patient. OBJECTIVE: PHYSICAL EXAMINATION: VS: Please see below CONSTITUTIONAL: resting in bed. Ox 1 to self only, not to place or reason as to why he is here , cooperative EYES: PERRLA, EOM intact HENT, MOUTH: Normocephalic, atraumatic, moist mucous membranes, poor dentition NECK: SUPPLE, no JVD, no lymphadenopathy, no carotid bruit CV: Regular rate and rhythm, S1S2 normal, no murmurs/rubs/gallops, no extremity edema RESPIRATORY: Clear to auscultation bilaterally, no rales/rhonchi/wheezes GI: well healed scars on abdomen where prior FT was. BS positive in 4 quadrants, soft, nontender, nondistended, no rebound or guarding, no organomegaly : Deferred MUSCULOSKELETAL: thin extremities, normal ROM. No cyanosis, clubbing, swelling, joint deformity, extremity edema INTEGUMENTARY: Intact, no rashes, no lesions, no erythema. see above under GI NEUROLOGIC: No focal deficits PSYCHIATRIC: Confused but not agitated, following all commands. pleasant LABORATORY DATA: Please see below MICROBIOLOGY: BCx x 1 bottle in set from admission: Staph epidermidis Bcx x 1 set from admission: NG UA neg Repeat BCx: NG x 2 sets IMAGING: MRI brain 04/09/21: 1. No evidence of acute intracranial abnormality. No evidence of acute infarction, acute hemorrhage, or mass producing. 2. Atrophy and microvascular disease. CXR: Diffuse chronic fibrosis/interstitial disease. No obvious acute process identified. If the patient remains symptomatic consider chest CT for further investigation. CT head: There is been no significant change compared to the prior exam. Patchy areas of deep cerebral white matter ischemic change is noted status quo. There is no evidence of acute intracranial pathology. Consider follow-up with MRI if clinically relevant. MRA brain 01/2020: Vertebral basilar insufficiency with very poor visualization of flow signal in a short segment of basilar artery only. No flow signal is seen in the distal vertebral arteries. The posterior communicating arteries are patent and posterior circulation shows diminished flow but bilateral patency. ASSESSMENT: 60-year-old male with past medical history of CVA, pulmonary embolism with IVC filter placed, protein calorie malnutrition, dysphagia, dementia without behavioral disturbance, history of alcohol dependence, iron deficiency anemia, COPD, major depressive disorder, hypertension, aortic valve disorder admitted for r/o dysphagia, increased confusion/encephalopathy r/o metabolic cause vs. behavioral. PLAN: Increased confusion likely 2/2 to worsening, advanced stage dementia (believed to have been from prior alcohol abuse) now with behaviors -Increased agitation, aggression has improved with haldol administration sched ed -Taking pills crushed only intermittently, paranoid at times about food and medicine -WBC wnl, afebrile, no other s/s of infection, LA wnl -All cx NG except for one blood culture which is likely contaminate -CT head: above -MRI 04/09/21: small chronic microhemorrhage in the left occipital lobe. No evidence of acute intracranial abnormality. No evidence of acute infarction, acute hemorrhage, or mass producing. 2. Atrophy and microvascular disease. Discussed with Dr. Daniel (neurology) internal control specialist. -MRA head from 01/2020 above -Discussed with psychiatry (Dr. Sebastian) who has seen, spoken with . She suggested Haldol ATC, ativan PRN. Can possibly transition to PO form and/or other meds if patient allows. currently he is refusing most PO meds and some IV meds as well. -Discussed case with Dr. Daniel who suggested behavioral control, redirection if possible. If not taking pills this will be very difficult to control at home. States that at this advanced of stage, will likely need 24/ care and not follow up with outpatient neurology. -Daily labs, sitter currently -Discussed with today that his condition will likely not improve and that his worsening dementia will make it complicated at home for her. She want to bring patient home still. This may be a case where patient's family takes him home, fails at home and he may be back unfortunately. Will also be difficult to place with aggression, refusal to take pills. C3 Vertebral body abnormality, cannot r/o malignancy, sclerotic lesion -Per radiology on MRI, was seen on prior scan -Will order CT with contrast of cervical spine, PSA as recommended -If shows up abnormal on CT, may need bone scan. Staphylococcus epidermidis bacteremia- likely contaminant -11/20 bottles +, repeat BCx NG -No incr WBC, fever, open lesions -UA neg -CXR: no infection -No murmurs on exam to indicate reason for echocardiogram Dysphagia with increased secretions / protein calorie malnutrition -Hx of CVA with hx of dysphagia requiring G tube- was previously on diet of pureed, thin liquids with Jevity 1.5 bolus 360 cc 4x/d in past. tube was pulled late 2019 or Nov 2020 -Worsened dysphagia over past 1 month, at times was told patient cannot swallow secretions -CXR above- no concern for aspiration PNA -ST has been unable to do further evaluation or testing due to behaviors above but now that he is calmer perhaps he will allow. Will update team in the AM to try again. -Per ST: started on pureed diet with thin liquids -IVFs needed to be held due to increased agitation -Supplements per nutrition. -If poor intake continues, will need to discuss alternatives to getting nutrition Hx of alcohol related dementia with no prior documented behavioral disturbance/MDD? -Increased behaviors, aggression, agitation -Does not follow with behavioral health or neurology outside hospital. -c/w plan above, sitter, haldol ATC and ativan PRN (watch ECG and QTc closely) -ECG ordered for AM on 04/10/21 -Psych has been consulted, Dr. Sebastian- f/u official note Rhinovirus/enterovirus +, asymptomatic -No SOB or respiratory symptoms -conservative care COPD -Stable on RA -CXR above -C/w home med equivalents Hx of CVA -No new focal deficits -ASA, statin Hx of PE, s/p IVC filter placement 2019 -Not on oral AC -SCD/teds HTN -Home meds Hx of constipation -C/w bowel regimen from home GERD -PPI DVT px -SCD/teds , CI with hx of GI bleed Resolved issue: Hypokalemia, acute likely 2/2 to decreased PO intake DISPOSITION: Patient is admitted under inpatient status. Psych has made recommendations. Per neuro, advanced dementia that will be difficult to control, redirect at home. discussed diagnosis with today and expressed possible difficulty in taking him home. She still would like to try. When workup done above, would suggest touching base with again to see if plan is the same. VS, I&O, 24H, Fishbone Vital Signs/I&O Vital Signs Date Time Temp Pulse Resp B/P (MAP) Pulse Ox O2 Delivery O2 Flow Rate FiO2 04/09/21 14:00 96.7 75 20 154/88 (110) 100 Room Air I&O- Last 24 Hours up to 6 AM 04/09/21 06:00 Intake Total 865 ml Output Total 0 ml Balance 865 ml Laboratory Data 24H LABS Laboratory Tests 2 04/09/21 06:10: Nucleated Red Blood Cells % (auto) 0.0, Anion Gap 4L, Glomerular Filtration Rate > 60.0, Calcium Level 8.9 CBC/BMP Laboratory Tests 04/09/21 06:10 Microbiology Microbiology 04/05/21 Blood Culture - Preliminary, Resulted No Growth after 72 hours. All specime... 04/05/21 Blood Culture - Preliminary, Resulted No Growth after 72 hours. All specime... 04/04/21 Respiratory Virus Panel (PCR) ([facility]) - Final, Complete Human Rhinovirus/Enterovirus 04/04/21 Blood Culture - Final, Complete NO GROWTH AFTER 5 DAYS 04/04/21 Blood Culture - Final, Complete Staphylococcus Epidermidis Esme Morris MD April 09, 2021 20:15
[2021-04-09 22:00] VITALS: BP 154/98
[2021-04-10] MEDS: HALOPERIDOL 5MG/ML VIAL (J1630 PER 1) IV SCH ×4 (02:00→20:14)
[2021-04-10 06:00] VITALS: BP 150/89
[2021-04-10 06:18] LABS: HEMATOCRIT 40.5 % (42.0-52.0); HEMOGLOBIN 12.9 g/dl (13.5-17.5); MEAN CORPUSCULAR HEMOGLOBIN 28.5 pg (27.0-33.0); MEAN CORPUSCULAR HGB CONC 31.9 g/dl (32.0-36.5); MEAN CORPUSCULAR VOLUME 89.6 fl (80.0-96.0); PLATELET COUNT, AUTOMATED 212 10^3/uL (150-450); RED BLOOD COUNT 4.52 10^6/uL (4.30-6.10); WHITE BLOOD COUNT 4.5 10^3/uL (4.0-10.0)
[2021-04-10 06:47] LABS: BLOOD UREA NITROGEN 7 MG/DL (7-18); CARBON DIOXIDE LEVEL 28 MEQ/L (21-32); CHLORIDE LEVEL 107 MEQ/L (98-107); CREATININE FOR GFR 0.78 MG/DL (0.70-1.30); GLOMERULAR FILTRATION RATE > 60.0 (>49); GLUCOSE, FASTING 78 MG/DL (70-100); POTASSIUM SERUM 4.1 MEQ/L (3.5-5.1); SODIUM LEVEL 141 MEQ/L (136-145)
[2021-04-10] MEDS: SALMETEROL DISKUS 50MCG INHALER (SEREVENT) INH SCH ×2 (07:12→19:51)
[2021-04-10] MEDS ORDERED: ISOVUE-370 76% 100ML VIAL As Ordered ONE (08:26)
--- NOTE | 2021-04-10 09:36 | REPVR ---
PROCEDURE INFORMATION: Exam: CT Neck With Contrast Exam date and time: 04/10/2021 9:15 AM Age: 60 years old Clinical indication: Abnormal findings; Abnormal radiologic study of neck; Additional info: C3 vertebral body seen on mri brain, R/O malignancy, sclerot TECHNIQUE: Imaging protocol: Computed tomography images of the neck with contrast. Radiation optimization: All CT scans at this facility use at least one of these dose optimization techniques: automated exposure control; mA and/or kV adjustment per patient size (includes targeted exams where dose is matched to clinical indication); or iterative reconstruction. Contrast material: ISOVUE 370; Contrast volume: 75 ml; Contrast route: INTRAVENOUS (IV); COMPARISON: MRI BRAIN 04/09/2001 FINDINGS: Nasopharynx: Unremarkable. Oropharynx: Unremarkable. No significant tonsillar enlargement. Hypopharynx: Unremarkable. Larynx: Unremarkable. Normal epiglottis. Retropharyngeal space: Unremarkable. Submandibular/Parotid glands: Normal. Glands are normal in size. Thyroid: Normal. No enlarged or calcified nodules. Lymph nodes: Unremarkable. No lymphadenopathy. Trachea: Visualized trachea is unremarkable. Lungs: There are moderate biapical emphysematous changes. Bones/joints: There is moderate to severe intervertebral disc space loss at C4/5 and C6/7, with endplate changes. There is multilevel facet hypertrophy. No diffuse infiltrative change involves the C3 body. Vasculature: The right vertebral artery is not visualized. This could reflect diminutive vessel caliber or occlusion. Soft tissues: Unremarkable. No significant soft tissue swelling. IMPRESSION: No acute soft tissue or bony abnormality. If there is continued clinical concern for cervical bony abnormality, contrast-enhanced MRI of the cervical spine is recommended. Electronically signed by: Nathaly Reina On 04/10/2021 09:36:17 AM
--- NOTE | 2021-04-10 10:36 | IPN ---
PROGRESS NOTE DATE: 04/10/2021 SUBJECTIVE: Zach is seen [facility]. He has dementia with agitation and behavioral disturbance, history of alcohol abuse, COPD, and major depression admitted with altered mental status and advanced dementia. He has a Staph epidermidis on one blood culture, which appears to be contaminant. Human rhinovirus nasal swab. Has a C3 sclerotic lesion on plain films. He underwent a CT of the neck today, which he cooperated with, that showed no abnormality in the C3 region. OBJECTIVE: VITAL SIGNS: He is afebrile. Vital signs are stable. He is alert and conversant. He is interacting with his aids. Moves arms and legs with equal strength. Exam otherwise unchanged from before. LABORATORY DATA: CBC unremarkable. BMP unremarkable. IMPRESSION: 1. Dementia with behavioral disturbance. At this point, he is basically a disposition problem. He will not take p.o. 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 Dr. Morris spoke with his yesterday. She is aware of his progressive dementia, aggression, and refusal to take medications. PFS will need to work with her on disposition plans. 2. ? C3 sclerotic lesion normal on CT scan. 3. Staph epidermidis bacteremia that seems to be a contaminant only present on one out of four samples. 4. History of stroke with dysphagia. Protein-calorie malnutrition. He had a G-tube in the past that was pulled out earlier this year in apparently November. Speech therapy has been unable to assess because he has been too agitated. He is currently on a puree diet with thin liquids. 5. Alcohol related dementia. EEG is ordered for this morning. Dr. Sebastian has already been consulted for psychiatry opinion. Her note from 04/07 was reviewed. The plan was to start him on medications, which he subsequently has been refusing to take.
[2021-04-10] MEDS: ASPIRIN 81 MG CHEW TABLET PO SCH (12:01)
[2021-04-10] MEDS: SPIRONOLACTONE 25 MG TAB PO SCH (12:01)
[2021-04-10] MEDS: FERROUS SULFATE 325MG TAB PO SCH (12:02)
[2021-04-10] MEDS: ATORVASTATIN 20 MG TAB PO SCH (12:02)
[2021-04-10] MEDS: SERTRALINE HCL 25 MG TABLET PO SCH (12:02)
[2021-04-10] MEDS: OMEPRAZOLE 20 MG CAP PO SCH (12:02)
[2021-04-10] MEDS: allopurinoL 100 MG TAB PO SCH (12:03)
[2021-04-10 14:00] VITALS: BP 149/79
[2021-04-10] MEDS: FLUTICASONE HFA 220 MCG 12 GM INHALER (FLOVENT) INH SCH (19:50)
[2021-04-10] MEDS: TIOTROPIUM INHALER/CAPSULE (SPIRIVA) INH SCH (19:51)
--- NOTE | 2021-04-10 20:46 | ECGEPIP ---
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
[2021-04-10 22:00] VITALS: BP 133/82
[2021-04-11] MEDS: HALOPERIDOL 5MG/ML VIAL (J1630 PER 1) IV SCH ×5 (01:35→21:20)
[2021-04-11 06:00] VITALS: BP 133/75
[2021-04-11] MEDS: ATORVASTATIN 20 MG TAB PO SCH (09:00)
[2021-04-11] MEDS: SERTRALINE HCL 25 MG TABLET PO SCH (09:00)
[2021-04-11] MEDS: SPIRONOLACTONE 25 MG TAB PO SCH (09:00)
[2021-04-11] MEDS: ASPIRIN 81 MG CHEW TABLET PO SCH (09:00)
[2021-04-11] MEDS: FERROUS SULFATE 325MG TAB PO SCH (09:00)
[2021-04-11] MEDS: allopurinoL 100 MG TAB PO SCH (09:00)
[2021-04-11] MEDS: SALMETEROL DISKUS 50MCG INHALER (SEREVENT) INH SCH ×3 (09:00→20:01)
[2021-04-11] MEDS: OMEPRAZOLE 20 MG CAP PO SCH (09:00)
[2021-04-11 14:00] VITALS: BP 134/82
--- NOTE | 2021-04-11 18:33 | IPNPDOC ---
Text Note Date of Service The patient was seen on 04/11/21. NOTE Hospitalist Progress Note Subjective: Patient was sleeping when I entered the room, but he was easily aroused. He was actually quite pleasant to speak with when I was in the room, he does not have any complaints at this time. I asked him about whether he was refusing to take oral medications, and he did not know what I was talking about. Objective: General: Awake, alert. Not in any acute distress. HEENT: Head normocephalic, atraumatic, sclera are nonicteric. Hearing is grossly intact to conversation. Respiratory: Clear to auscultation bilaterally with no wheezes, rales, or rhonchi. Cardiovascular: Regular rate and rhythm, with no rubs, gallops, or murmur. Abdomen: Soft, nontender, nondistended, no hepatosplenomegaly appreciated. Bowel sounds present. Extremities: 2+ pulses in the radial and dorsalis pedis bilaterally. No evidence of clubbing or cyanosis. Assessment: Dementia with agitation and behavioral disturbance History of alcohol abuse COPD Major depression Staph epidermidis on one blood culture, appears to be contaminant Positive for human rhinovirus on nasal swab History of stroke with dysphagia Protein calorie malnutrition History of G-tube in the past that apparently was some pulled out earlier this year Plan: -Continue discharge planning with PFS -Psychiatry as artery seen and evaluated the patient, and is a recommendation to start medications, but the patient is refusing all oral medications at this time which is causing the difficulty in finding a safe and stable solution for him. -Currently continuing with IV medications to treat agitation VS,Fishbone, I+O VS, Fishbone, I+O Vital Signs Date Time Temp Pulse Resp B/P (MAP) Pulse Ox O2 Delivery O2 Flow Rate FiO2 04/11/21 14:00 97.8 80 16 134/82 (99) 96 Room Air I&O- Last 24 Hours up to 6 AM 04/11/21 06:00 Intake Total 270 ml Balance 270 ml DEYSI BECKWITH DO April 11, 2021 18:33
[2021-04-11] MEDS: TIOTROPIUM INHALER/CAPSULE (SPIRIVA) INH SCH ×2 (20:00→20:03)
[2021-04-11] MEDS: FLUTICASONE HFA 220 MCG 12 GM INHALER (FLOVENT) INH SCH ×2 (20:00→20:02)
[2021-04-12] MEDS: HALOPERIDOL 5MG/ML VIAL (J1630 PER 1) IV SCH ×4 (02:00→20:10)
[2021-04-12 06:00] VITALS: BP 153/94
[2021-04-12] MEDS: SALMETEROL DISKUS 50MCG INHALER (SEREVENT) INH SCH ×2 (07:05→21:00)
[2021-04-12] MEDS: SPIRONOLACTONE 25 MG TAB PO SCH (09:00)
[2021-04-12] MEDS: ASPIRIN 81 MG CHEW TABLET PO SCH (09:00)
[2021-04-12] MEDS: FERROUS SULFATE 325MG TAB PO SCH (10:04)
[2021-04-12] MEDS: ATORVASTATIN 20 MG TAB PO SCH (10:04)
[2021-04-12] MEDS: OMEPRAZOLE 20 MG CAP PO SCH (10:04)
[2021-04-12] MEDS: SERTRALINE HCL 25 MG TABLET PO SCH (10:05)
[2021-04-12] MEDS: allopurinoL 100 MG TAB PO SCH (10:05)
[2021-04-12 14:00] VITALS: BP 150/91
[2021-04-12] MEDS: TIOTROPIUM INHALER/CAPSULE (SPIRIVA) INH SCH (21:00)
[2021-04-12] MEDS: FLUTICASONE HFA 220 MCG 12 GM INHALER (FLOVENT) INH SCH (21:00)
--- NOTE | 2021-04-12 21:15 | IPNPDOC ---
Text Note Date of Service The patient was seen on 04/12/21. NOTE Hospitalist Progress Note Subjective: Pleasantly confused. Not showing aggression at the time of my examination, nurses state that he seems to be doing better on his current regimen, but still has some triggers. Objective: General: Awake, alert. Not in any acute distress. HEENT: Head normocephalic, atraumatic, sclera are nonicteric. Hearing is grossly intact to conversation. Respiratory: Clear to auscultation bilaterally with no wheezes, rales, or rhonchi. Cardiovascular: Regular rate and rhythm, with no rubs, gallops, or murmur. Abdomen: Soft, nontender, nondistended, no hepatosplenomegaly appreciated. Bowel sounds present. Extremities: 2+ pulses in the radial bilaterally. No evidence of clubbing or cyanosis. Assessment: Dementia with agitation and behavioral disturbance History of alcohol abuse COPD Major depression Staph epidermidis on one blood culture, appears to be contaminant Positive for human rhinovirus on nasal swab History of stroke with dysphagia Protein calorie malnutrition History of G-tube in the past that apparently was some pulled out earlier this year Plan: -Continue discharge planning with PFS -Psychiatry as artery seen and evaluated the patient, and is a recommendation to start medications, but the patient is refusing all oral medications at this time which is causing the difficulty in finding a safe and stable solution for him. -It appears that he is receiving 2-3 doses of IV Haldol 2 mg daily. I will put him on 2 mg IM scheduled BID, but I will leave the PRN dosing for now. Perhaps this dose may need to be increased. Will continue to work to find a reasonable solution. He may also be a candidate for Haldol Decanoate if we can find a good dose for him & insurance would pay for monthly injections (which would be much more easy than daily injections) VS,Fishbone, I+O VS, Fishbone, I+O Vital Signs Date Time Temp Pulse Resp B/P (MAP) Pulse Ox O2 Delivery O2 Flow Rate FiO2 04/12/21 14:00 76 16 150/91 (110) 97 Room Air 04/12/21 06:00 97.7 I&O- Last 24 Hours up to 6 AM 04/12/21 06:00 Intake Total 810 ml Balance 810 ml DEYSI BECKWITH DO April 12, 2021 21:14
[2021-04-12 22:00] VITALS: BP 150/92
[2021-04-12] MEDS: LORazepam 2 MG/ML VIAL IV PRN (23:51)
[2021-04-13] MEDS: allopurinoL 100 MG TAB PO SCH (09:00)
[2021-04-13] MEDS: OMEPRAZOLE 20 MG CAP PO SCH (09:00)
[2021-04-13] MEDS: SALMETEROL DISKUS 50MCG INHALER (SEREVENT) INH SCH ×2 (09:00→20:00)
[2021-04-13] MEDS: ATORVASTATIN 20 MG TAB PO SCH (09:00)
[2021-04-13] MEDS: ASPIRIN 81 MG CHEW TABLET PO SCH (09:00)
[2021-04-13] MEDS: SERTRALINE HCL 25 MG TABLET PO SCH (09:00)
[2021-04-13] MEDS: SPIRONOLACTONE 25 MG TAB PO SCH (09:00)
[2021-04-13] MEDS: FERROUS SULFATE 325MG TAB PO SCH (09:00)
[2021-04-13] MEDS: HALOPERIDOL 5MG/ML VIAL (J1630 PER 1) IM SCH ×2 (09:52→21:00)
[2021-04-13] MEDS ORDERED: LORazepam 2 MG/ML VIAL As Ordered ONE (11:54)
[2021-04-13] MEDS: LORazepam 2 MG/ML VIAL IV PRN (12:06)
[2021-04-13] MEDS: HALOPERIDOL 5MG/ML VIAL (J1630 PER 1) IV PRN (12:06)
--- NOTE | 2021-04-13 19:12 | IPNPDOC ---
Text Note Date of Service The patient was seen on 04/13/21. NOTE Subjective: No any acute events overnight. In the morning patient was agitated and aggressive. Code 25 was called. Patient received IV dose of Haldol and lorazepam. Objective: GENERAL APPEARANCE: Somnolent HEENT: no scleral icterus, no JVD, EOMI CARDIOVASCULAR: S1S2 LUNGS: CTA ABDOMEN: soft & not tender w palpitation MUSCULOSKELETAL: no cyanosis, no swelling INTEGUMENT: no generalized pallor NEUROLOGICAL: cranial nerve function from 2-12 intact intact, no nuchal rigidity Assessment and plan 60-year-old male with past medical history of CVA, pulmonary embolism with IVC filter placed, protein calorie malnutrition, dysphagia, dementia without behavioral disturbance, history of alcohol dependence, iron deficiency anemia, COPD, major depressive disorder, hypertension, aortic valve disorder admitted for r/o dysphagia, increased confusion/encephalopathy r/o metabolic cause vs. behavioral. Confusion/dementia Increased agitation, aggression has improved with haldol administration scheduled . Patient refused to take by mouth medications Discussed with psychiatry (Dr. Sebastian) who has seen, spoken with . She suggested Haldol ATC, ativan PRN. Can possibly transition to PO form and/or other meds if patient allows. currently he is refusing most PO meds and some IV meds as well. -Discussed case with Dr. Daniel who suggested behavioral control, redirection if possible. If not taking pills this will be very difficult to control at home. States that at this advanced of stage, will likely need 24/7 care and not follow up with outpatient neurology C3 Vertebral body abnormality CT neck negative for metastasis Dysphagia with increased secretions / protein calorie malnutrition -Hx of CVA with hx of dysphagia requiring G tube- was previously on diet of pureed, thin liquids with Jevity 1.5 bolus 360 cc 4x/d in past. tube was pulled late 2019 or Nov 2020 -Worsened dysphagia over past 1 month, at times was told patient cannot swallow secretions Per ST: started on pureed diet with thin liquids Hx of alcohol related dementia with no prior documented behavioral disturbance -Increased behaviors, aggression, agitation -Does not follow with behavioral health or neurology outside hospital Psych has been consulted, Dr. Sebastian- f/u official note Rhinovirus/enterovirus +, asymptomatic -No SOB or respiratory symptoms -conservative care COPD -Stable on RA -CXR above -C/w home med equivalents Hx of CVA -No new focal deficits -ASA, statin Hx of PE, s/p IVC filter placement 2019 -Not on oral AC -SCD/teds HTN -Home meds Hx of constipation -C/w bowel regimen from home GERD -PPI Patient will be transferred to [facility] status VS,Fishbone, I+O VS, Fishbone, I+O Vital Signs Date Time Temp Pulse Resp B/P (MAP) Pulse Ox O2 Delivery O2 Flow Rate FiO2 04/12/21 22:00 97.8 73 16 150/92 (111) 95 Room Air I&O- Last 24 Hours up to 6 AM 04/13/21 06:00 Intake Total 2820 ml Output Total 400 ml Balance 2420 ml RODOLFO YUAN DO April 13, 2021 19:12
[2021-04-13] MEDS: TIOTROPIUM INHALER/CAPSULE (SPIRIVA) INH SCH (20:00)
[2021-04-13] MEDS: FLUTICASONE HFA 220 MCG 12 GM INHALER (FLOVENT) INH SCH (20:00)
[2021-04-14] MEDS: HALOPERIDOL 5MG/ML VIAL (J1630 PER 1) IV PRN (04:30)
[2021-04-14] MEDS: LORazepam 2 MG/ML VIAL IV PRN (04:30)
[2021-04-14 06:00] VITALS: BP 155/79
[2021-04-14] MEDS: FLUTICASONE HFA 220 MCG 12 GM INHALER (FLOVENT) INH SCH (07:49)
[2021-04-14] MEDS: SALMETEROL DISKUS 50MCG INHALER (SEREVENT) INH SCH ×2 (07:49→20:23)
[2021-04-14] MEDS: TIOTROPIUM INHALER/CAPSULE (SPIRIVA) INH SCH (07:50)
[2021-04-14] MEDS: ATORVASTATIN 20 MG TAB PO SCH (09:00)
[2021-04-14] MEDS: SERTRALINE HCL 25 MG TABLET PO SCH (09:00)
[2021-04-14] MEDS: ASPIRIN 81 MG CHEW TABLET PO SCH (09:00)
[2021-04-14] MEDS: OMEPRAZOLE 20 MG CAP PO SCH (09:00)
[2021-04-14] MEDS: allopurinoL 100 MG TAB PO SCH (09:00)
[2021-04-14] MEDS: HALOPERIDOL 5MG/ML VIAL (J1630 PER 1) IM SCH ×2 (09:00→21:00)
[2021-04-14] MEDS: SPIRONOLACTONE 25 MG TAB PO SCH (09:00)
[2021-04-14] MEDS: FERROUS SULFATE 325MG TAB PO SCH (09:00)
[2021-04-15 06:00] VITALS: BP 106/68
[2021-04-15] MEDS: SALMETEROL DISKUS 50MCG INHALER (SEREVENT) INH SCH (07:40)
[2021-04-15] MEDS: FERROUS SULFATE 325MG TAB PO SCH (09:00)
[2021-04-15] MEDS: SERTRALINE HCL 25 MG TABLET PO SCH (09:00)
[2021-04-15] MEDS: OMEPRAZOLE 20 MG CAP PO SCH (09:00)
[2021-04-15] MEDS: ATORVASTATIN 20 MG TAB PO SCH (09:00)
[2021-04-15] MEDS: allopurinoL 100 MG TAB PO SCH (09:00)
[2021-04-15] MEDS: ASPIRIN 81 MG CHEW TABLET PO SCH (09:00)
[2021-04-15] MEDS: HALOPERIDOL 5MG/ML VIAL (J1630 PER 1) IM SCH (09:00)
[2021-04-15] MEDS: SPIRONOLACTONE 25 MG TAB PO SCH (09:00)
[2021-04-15] MEDS ORDERED: OMEP-221 PO (13:30)
[2021-04-15] MEDS ORDERED: SERO50TA4 PO (13:34)
--- NOTE | 2021-04-15 13:47 | DS.PDOC ---
Discharge Summary General Date of Admission April 04, 2021 at 13:55 Date of Discharge 04/15/21 Discharge Summary PROCEDURES PERFORMED DURING STAY: [None]. ADMITTING DIAGNOSES: Confusion/dementia/metabolic encephalopathy C3 Vertebral body abnormality Dysphagia with increased secretions / protein calorie malnutrition Hx of alcohol related dementia Rhinovirus/enterovirus +, COPD Hx of CVA Hx of PE, s/p IVC filter placement 2019 HTN Paranoia Hx of constipation Agitation GERD DISCHARGE DIAGNOSES: Confusion/dementia/metabolic encephalopathy C3 Vertebral body abnormality Dysphagia with increased secretions / protein calorie malnutrition Hx of alcohol related dementia Rhinovirus/enterovirus +, COPD Hx of CVA Hx of PE, s/p IVC filter placement 2019 HTN Paranoia Hx of constipation Agitation GERD COMPLICATIONS/CHIEF COMPLAINT: Encephalopathy & Swallowing Dysfunction. HISTORY OF PRESENT ILLNESS:Patient is a 60-year-old male with past medical history of CVA, pulmonary embolism with IVC filter placed, protein calorie malnutrition, dysphagia, dementia now with behavioral disturbance, history of alcohol dependence, iron deficiency anemia, COPD, major depressive disorder, hypertension, aortic valve disorder was sent to the emergency room from home after the patient told the neighbor that he has difficulty swallowing. The patient is an overall poor historian secondary to dementia, his at the bedside was able to recount most of today's events. The patient has had increased salivation and spitting, went to see his primary care provider on 03/20/2021 who at that time did not have a concern for dysphasia. The patient according to the has had no increased shortness of breath, chest pain, weight loss, decrease in appetite or signs or symptoms of choking at home. The patient states at times his saliva cannot be swallowed. He has become increasingly argumentative with at times increased aggressiveness according to his . He does not follow with the behavior health specialists outside the hospital. There has been 2 times in the last 2 days that he has asked his neighbor's to called the ambulance to take him to the hospital to get his swallowing issues addressed. The patient has a history of CVA and his father's requiring a G-tube. According to his the G-tube was taken out late last year or early this year by our surgical services and told he could eat naturally . In the ER vital signs were stable, labs were unremarkable aside from an ammonia level which was slightly elevated at 35. AST/ALT were within normal limits. Urinalysis was negative. The patient was thin but did not appear cachectic or may sedated. He was argumentative at times and slightly hostile. He continued to spit into an emesis by the entire time I was evaluating him but did not appear to choke on his saliva. He appeared stable. According to his he had had increased confusion over the past several days along with his behavioral changes. He has been compliant with his home medications according to his outside the hospital. Due to history of dysphasia with aspiration and concern for recurrence of dysphasia and increased confusion, the patient was admitted for further evaluation to hospitalist service. At the time of admission patient denies palpitations, chest pain, shortness of breath, fevers, chills, cough, nausea or vomiting. Discussed with patient's difficulty with patient often times refusing IV and PO medications. MRI brain done today, addendum made for abnormal finding in C3 vertebrae- look at report . More calm with IV haldol. CT cervical spine in AM. No complaints by patient HOSPITAL COURSE: During the hospital stay with following issue addressed Confusion/dementia Increased agitation, aggression has improved with haldol administration scheduled . Patient refused to take by mouth medications Discussed with psychiatry (Dr. Sebastian) who has seen, spoken with . She suggested Haldol ATC, ativan PRN. Can possibly transition to PO form and/or other meds if patient allows. currently he is refusing most PO meds and some IV meds as well. -Discussed case with Dr. Daniel who suggested behavioral control, redirection if possible. If not taking pills this will be very difficult to control at home. States that at this advanced of stage, will likely need 24/7 care and not follow up with outpatient neurology Today his Pati expressed her wishes to take Zach home. I explained to her that it would be difficult to control his aggression and agitation because he sometimes denies or spill out pills. She told me she will try to give him pills with meal. C3 Vertebral body abnormality CT neck negative for metastasis Dysphagia with increased secretions / protein calorie malnutrition -Hx of CVA with hx of dysphagia requiring G tube- was previously on diet of pureed, thin liquids with Jevity 1.5 bolus 360 cc 4x/d in past. tube was pulled late 2019 or Nov 2020 -Worsened dysphagia over past 1 month, at times was told patient cannot swallow secretions Per ST: started on pureed diet with thin liquids Hx of alcohol related dementia with no prior documented behavioral disturbance -Increased behaviors, aggression, agitation -Does not follow with behavioral health or neurology outside hospital Psych has been consulted, Dr. Sebastian- f/u official note Rhinovirus/enterovirus +, asymptomatic -No SOB or respiratory symptoms -conservative care COPD -Stable on RA -CXR above -C/w home med equivalents Hx of CVA -No new focal deficits -ASA, statin Hx of PE, s/p IVC filter placement 2019 -Not on oral AC -SCD/teds HTN -Home meds Hx of constipation -C/w bowel regimen from home GERD -PPI DISCHARGE MEDICATIONS: Please see below. ALLERGIES: Please see below. PHYSICAL EXAMINATION ON DISCHARGE: VITAL SIGNS: Please see below. GENERAL APPEARANCE: Somnolent HEENT: no scleral icterus, no JVD, EOMI CARDIOVASCULAR: S1S2 LUNGS: CTA ABDOMEN: soft & not tender w palpitation MUSCULOSKELETAL: no cyanosis, no swelling INTEGUMENT: no generalized pallor NEUROLOGICAL: cranial nerve function from 2-12 intact intact, no nuchal rigidity LABORATORY DATA: Please see below. IMAGING: See above PROGNOSIS: Guarded ACTIVITY: [As tolerated]. DIET: pureed diet with thin liquids DISCHARGE PLAN: Home with home health DISCHARGE INSTRUCTIONS: Follow-up with PCP in 3-5 days, follow-up with psychiatrist in 5 days, follow-up with neurologist in 1 week DISCHARGE CONDITION: [Stable]. TIME SPENT ON DISCHARGE:50 minutes. Vital Signs/I&Os Vital Signs Date Time Temp Pulse Resp B/P (MAP) Pulse Ox O2 Delivery O2 Flow Rate FiO2 04/15/21 06:00 97.1 105 18 106/68 (81) 96 Room Air I&O- Last 24 Hours up to 6 AM 04/15/21 06:00 Intake Total 3095 ml Output Total 0 ml Balance 3095 ml Microbiology Microbiology 04/05/21 Blood Culture - Final, Complete NO GROWTH AFTER 5 DAYS 04/05/21 Blood Culture - Final, Complete NO GROWTH AFTER 5 DAYS Discharge Medications Scheduled Allopurinol (Allopurinol) 100 Mg Tablet, 100 MG PO DAILY, (Reported) Amlodipine Besylate (Amlodipine Besylate) 10 Mg Tablet, 10 MG PO DAILY, (Reported) Aspirin (Aspirin) 81 Mg Tab.chew, 81 MG PO DAILY, (Reported) Atorvastatin Calcium (Atorvastatin Calcium) 40 Mg Tablet, 40 MG PO DAILY, (Reported) Cholecalciferol (Vitamin D3) (Vitamin D3) 25 Mcg Tablet, 25 MCG PO DAILY, (Reported) Ferrous Sulfate (Ferrous Sulfate) 324 Mg Tablet.dr, 324 MG PO DAILY, (Reported) Mometasone Furoate (Asmanex) 220 Mcg Aer.pow.ba, 1 PUFF INH QHS, (Reported) Omeprazole (Omeprazole) 40 Mg Capsule.dr, 40 MG PO DAILY Quetiapine Fumarate (Seroquel Xr) 50 Mg Tab.er.24h, 1 TAB PO QPM Sertraline HCl (Sertraline HCl) 25 Mg Tablet, 25 MG PO DAILY, (Reported) Spironolactone (Spironolactone) 25 Mg Tablet, 25 MG PO DAILY, (Reported) Tiotropium Br/Olodaterol HCl (Stiolto Respimat Inhal [place]) 4 Gm Mist.inhal, 2 PUFF INH QHS, (Reported) Scheduled PRN Albuterol Sulfate (Albuterol Sulfate Hfa) 8.5 Gm Hfa.aer.ad, 2 PUFFS INH Q6H PRN for SHORTNESS OF BREATH, (Reported) Allergies Coded Allergies: No Known Drug Allergies (Verified Allergy, Unknown, 02/09/20) RODOLFO YUAN DO April 15, 2021 13:47
== END 2021-04-15 15:23 | disposition home health service (06) | DRG 775 ==
LOC: EDBD 09:12 → M ED 09:12 → M ED INP 13:55 → ENRESERV 15:48 → M MSPAV 16:11
PROVIDERS: ADMIT Internal Medicine; ATTEND Internal Medicine
DX: F10.27 Alcohol dependence with alcohol-induced persisting dementia (principal); F03.91 Unspecified dementia, unspecified severity, with behavioral disturbance; E46 Unspecified protein-calorie malnutrition; R13.10 Dysphagia, unspecified; D50.9 Iron deficiency anemia, unspecified; F32.9 Major depressive disorder, single episode, unspecified; I10 Essential (primary) hypertension; I69.391 Dysphagia following cerebral infarction; K59.00 Constipation, unspecified; J44.9 Chronic obstructive pulmonary disease, unspecified; B34.8 Other viral infections of unspecified site; K21.9 Gastro-esophageal reflux disease without esophagitis; I35.8 Other nonrheumatic aortic valve disorders; Z86.711 Personal history of pulmonary embolism; Z95.828 Presence of other vascular implants and grafts; Z79.82 Long term (current) use of aspirin; Z79.899 Other long term (current) drug therapy

== ENCOUNTER 2021-05-10 13:18 | Emergency (ER) | payer OTHER ==
[~2021-05-10] VITALS: Ht 185.4 cm; Wt 59.6 kg
[~2021-05-10 13:18] MED LIST changes: +ALBU8.5H INH; +ALLO100T PO; +ASMA220A INH; +FERR324T2 PO; +OMEP-221 PO; +OMEP40CA4 GT; -OMEP40CA97 GT; -PANTOPRAZOLE 40MG VIAL (C9113 PER 1) IV SCH; +SERO50TA4 PO; +STIO1AER INH; +VITA-168 PO
[2021-05-10 14:49] LABS: BASO % 0.7 % (0.0-1.0); EOS # 0.3 10^3/uL (0.0-0.5); EOS % 5.9 % (0.0-3.0); HEMATOCRIT 51.9 % (42.0-52.0); HEMOGLOBIN 16.2 g/dl (13.5-17.5); LYMPH # 1.6 10^3/uL (1.5-5.0); LYMPH % 35.4 % (24.0-44.0); MEAN CORPUSCULAR HEMOGLOBIN 28.5 pg (27.0-33.0); MEAN CORPUSCULAR HGB CONC 31.2 g/dl (32.0-36.5); MEAN CORPUSCULAR VOLUME 91.4 fl (80.0-96.0); MONO # 0.3 10^3/uL (0.0-0.8); MONO % 7.2 % (2.0-8.0); NEUTROPHILS # 2.3 10^3/uL (1.5-8.5); NEUTROPHILS % 50.6 % (36.0-66.0); PLATELET COUNT, AUTOMATED 271 10^3/uL (150-450); RED BLOOD COUNT 5.68 10^6/uL (4.30-6.10); WHITE BLOOD COUNT 4.6 10^3/uL (4.0-10.0)
[2021-05-10 15:22] LABS: ALBUMIN 4.2 GM/DL (3.2-5.2); ALT/SGPT 12 U/L (12-78); BILIRUBIN,DIRECT 0.3 MG/DL (0.0-0.2); BILIRUBIN,TOTAL 0.9 MG/DL (0.2-1.0); BLOOD UREA NITROGEN 20 MG/DL (7-18); CALCIUM LEVEL 10.1 MG/DL (8.8-10.2); CARBON DIOXIDE LEVEL 27 MEQ/L (21-32); CHLORIDE LEVEL 110 MEQ/L (98-107); CK-MB VALUE MASS 1.2 NG/ML (<3.6); CPK CREATINE PHOSPHOKINASE 68 U/L (39-308); CREATININE FOR GFR 0.98 MG/DL (0.70-1.30); GLOMERULAR FILTRATION RATE > 60.0 (>49); GLUCOSE, FASTING 65 MG/DL (70-100); MB/CK RELATIVE INDEX 1.76 (< OR =4); SODIUM LEVEL 143 MEQ/L (136-145); TOTAL PROTEIN 8.5 GM/DL (6.4-8.2); TROPONIN I < 0.02 NG/ML (< 0.10)
[2021-05-10] MEDS ORDERED: NS 1,000 ML IV ONE (16:25)
[2021-05-10] MEDS ORDERED: HALOPERIDOL 5MG/ML VIAL (J1630 PER 1) IM STA (17:19)
--- NOTE | 2021-05-10 17:57 | REPVR ---
PROCEDURE INFORMATION: Exam: CT Head Without Contrast Exam date and time: 05/10/2021 4:21 PM Age: 60 years old Clinical indication: Altered mental status/memory loss; Additional info: Altered mental status' TECHNIQUE: Imaging protocol: Computed tomography of the head without contrast. Radiation optimization: All CT scans at this facility use at least one of these dose optimization techniques: automated exposure control; mA and/or kV adjustment per patient size (includes targeted exams where dose is matched to clinical indication); or iterative reconstruction. COMPARISON: 1. MRI-Brain without Contrast 04/09/2021 12:[address] Head without contrast 04/04/2021 10:10 AM FINDINGS: Brain: Stable areas of white matter ischemic disease identified. There has not been development intracranial hemorrhage. Quezada-white matter differentiation is unchanged. No areas of effacement of the sulci are seen. Cerebral ventricles: No ventriculomegaly. Paranasal sinuses: Visualized sinuses are unremarkable. No fluid levels. Mastoid air cells: Visualized mastoid air cells are well aerated. Bones/joints: Unremarkable. No acute fracture. Soft tissues: Unremarkable. IMPRESSION: Stable examination. Electronically signed by: Shabbir John On 05/10/2021 17:56:58 PM
[2021-05-10 18:08] LABS: VENOUS BASE EXCESS -4.8 (-2.0-2.0); VENOUS HCO3 22.8 MEQ/L (23.0-27.0); VENOUS PARTIAL PRESSURE CO2 51.2 mmHg (38.0-50.0); VENOUS PARTIAL PRESSURE O2 39.5 mmHg (30.0-50.0); VENOUS PH 7.266 UNITS (7.330-7.430); VENOUS STANDARD HCO3 19.9 MEQ/L; VENOUS TOTAL CO2 24.3 MEQ/L (24.0-28.0)
[2021-05-10] MEDS ORDERED: HALOPERIDOL 5MG/ML VIAL (J1630 PER 1) IV ONE (18:10)
[2021-05-10 19:28] LABS: ACETAMINOPHEN LEVEL < 2.0 UG/ML (10.0-30.0); ETHYL ALCOHOL (ETHANOL) < 0.003 % (0.000-0.010); SALICYLATE LEVEL 1.8 MG/DL (5.0-30.0)
--- NOTE | 2021-05-10 21:15 | ECGEPIP ---
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
[2021-05-10 22:51] VITALS: BP 141/79
== END 2021-05-10 23:03 | disposition home or self-care (01) ==
LOC: M ED 13:18
DX: E86.0 Dehydration (principal); I95.1 Orthostatic hypotension; R41.82 Altered mental status, unspecified; I10 Essential (primary) hypertension; J44.9 Chronic obstructive pulmonary disease, unspecified; K21.9 Gastro-esophageal reflux disease without esophagitis; G93.41 Metabolic encephalopathy; Z86.73 Personal history of transient ischemic attack (TIA), and cerebral infarction without residual deficits; Z79.899 Other long term (current) drug therapy; Z79.82 Long term (current) use of aspirin; F17.210 Nicotine dependence, cigarettes, uncomplicated

== ENCOUNTER 2021-05-13 12:51 | Emergency (ER) | payer OTHER ==
[~2021-05-13] VITALS: Ht 190.5 cm; Wt 58.0 kg
[2021-05-13] MEDS ORDERED: NS 1,000 ML IV ONE (13:50)
[2021-05-13] MEDS ORDERED: OLANZapine INTRAMUSCULAR 10MG VIAL IM ONE (18:20)
--- NOTE | 2021-05-13 21:17 | ECGEPIP ---
[facility] - ED Test Date: 2021-05-13 Pat Name: DELIA RENNER Department: Room: - Gender: Male Appeals Representative: NAIF : 1960 Requested By: EFRAIN WOLF Order Number: [id number] Reading MD: Ria Corona Measurements Intervals [place] Rate: 47 P: 73 [place]: 158 QRS: 70 QRSD: 68 T: 71 QT: 440 QTc: 389 Interpretive Statements Sinus bradycardia decreased rate 05/10/21 Electronically Signed on 05-13-2021 21:16:40 EDT by Ria Corona
[2021-05-13 23:53] VITALS: BP 138/72
== END 2021-05-13 23:54 | disposition home or self-care (01) ==
LOC: M ED 12:51
DX: F03.90 Unspecified dementia, unspecified severity, without behavioral disturbance, psychotic disturbance, mood disturbance, and anxiety (principal); I10 Essential (primary) hypertension; J44.9 Chronic obstructive pulmonary disease, unspecified; Z86.711 Personal history of pulmonary embolism; Z86.73 Personal history of transient ischemic attack (TIA), and cerebral infarction without residual deficits; Z79.899 Other long term (current) drug therapy; Z79.84 Long term (current) use of oral hypoglycemic drugs; F17.210 Nicotine dependence, cigarettes, uncomplicated

== ENCOUNTER 2021-05-15 14:43 | Emergency (ER) | payer OTHER ==
[2021-05-15 17:06] LABS: BASO % 0.7 % (0.0-1.0); EOS # 0.3 10^3/uL (0.0-0.5); EOS % 5.3 % (0.0-3.0); HEMATOCRIT 50.4 % (42.0-52.0); HEMOGLOBIN 15.9 g/dl (13.5-17.5); LYMPH # 2.5 10^3/uL (1.5-5.0); LYMPH % 44.1 % (24.0-44.0); MEAN CORPUSCULAR HEMOGLOBIN 29.2 pg (27.0-33.0); MEAN CORPUSCULAR HGB CONC 31.5 g/dl (32.0-36.5); MEAN CORPUSCULAR VOLUME 92.6 fl (80.0-96.0); MONO # 0.3 10^3/uL (0.0-0.8); MONO % 5.3 % (2.0-8.0); NEUTROPHILS # 2.5 10^3/uL (1.5-8.5); NEUTROPHILS % 44.4 % (36.0-66.0); PLATELET COUNT, AUTOMATED 182 10^3/uL (150-450); RED BLOOD COUNT 5.44 10^6/uL (4.30-6.10); WHITE BLOOD COUNT 5.6 10^3/uL (4.0-10.0)
[2021-05-15 17:31] VITALS: BP 121/73
[2021-05-15 17:37] LABS: BLOOD UREA NITROGEN 24 MG/DL (7-18); CALCIUM LEVEL 9.4 MG/DL (8.8-10.2); CARBON DIOXIDE LEVEL 26 MEQ/L (21-32); CHLORIDE LEVEL 113 MEQ/L (98-107); CREATININE FOR GFR 1.27 MG/DL (0.70-1.30); GLOMERULAR FILTRATION RATE > 60.0 (>49); GLUCOSE, FASTING 168 MG/DL (70-100); POTASSIUM SERUM 3.5 MEQ/L (3.5-5.1); SODIUM LEVEL 145 MEQ/L (136-145)
[2021-05-15] MEDS ORDERED: BACT800T5 PO (17:53)
[2021-05-15 18:14] LABS: GC DNA AMPLIFICATION NEGATIVE (NEGATIVE)
== END 2021-05-15 18:58 | disposition home or self-care (01) ==
LOC: M ED 14:43 → EDBD 14:43 → M ED 18:58
DX: N39.0 Urinary tract infection, site not specified (principal); I10 Essential (primary) hypertension; J44.9 Chronic obstructive pulmonary disease, unspecified; K21.9 Gastro-esophageal reflux disease without esophagitis; I25.10 Atherosclerotic heart disease of native coronary artery without angina pectoris; Z79.899 Other long term (current) drug therapy; Z79.82 Long term (current) use of aspirin

== ENCOUNTER → 2021-06-01 | Outpatient (CLI) | payer OTHER ==
[~2021-06-01] MED LIST changes: +BACT800T5 PO
[2021-06-01 13:50] LABS: ALBUMIN 3.7 GM/DL (3.2-5.2); ALT/SGPT 15 U/L (12-78); BILIRUBIN,TOTAL 0.2 MG/DL (0.2-1.0); BLOOD UREA NITROGEN 7 MG/DL (7-18); CALCIUM LEVEL 9.5 MG/DL (8.8-10.2); CARBON DIOXIDE LEVEL 28 MEQ/L (21-32); CHLORIDE LEVEL 104 MEQ/L (98-107); CHOLESTEROL LEVEL 148 MG/DL (<200); CHOLESTEROL RISK RATIO 2.027 (<5); CREATININE FOR GFR 0.78 MG/DL (0.70-1.30); GLOMERULAR FILTRATION RATE > 60.0 (>49); GLUCOSE, FASTING 84 MG/DL (70-100); HDL CHOLESTEROL 73 MG/DL (>40); LDL CHOLESTEROL 65 MG/DL (<100); NON-HDL-C 75 MG/DL; POTASSIUM SERUM 4.4 MEQ/L (3.5-5.1); SODIUM LEVEL 138 MEQ/L (136-145); TOTAL PROTEIN 7.4 GM/DL (6.4-8.2); TRIGLYCERIDES LEVEL 51 MG/DL (<150)
[2021-06-01 14:07] LABS: HEPATITIS B SURFACE ANTIGEN NEGATIVE (NEGATIVE)
[2021-06-01 14:33] LABS: HEPATITIS C VIRUS ABY INDEX 0.1 INDEX (<0.8)
[2021-06-01 14:34] LABS: HEPATITIS B CORE ANTIBODY IGM NEGATIVE (NEGATIVE)
[2021-06-01 14:35] LABS: HIV 1&2 SCREEN CENTAUR NEGATIVE (NEGATIVE)
[2021-06-01 14:36] LABS: HEPATITIS A ANTIBODY IGM NEGATIVE (NEGATIVE)
== END ==
LOC: M PLALAB 10:06
PROVIDERS: ATTEND Student in an Organized Health Care Education/Training Program
DX: R19.5 Other fecal abnormalities (principal); I10 Essential (primary) hypertension

== ENCOUNTER 2021-06-15 13:15 | Inpatient (IN) | payer OTHER ==
[~2021-06-15] VITALS: Ht 188 cm; Wt 53.5 kg
--- NOTE | 2021-06-15 14:13 | REP ---
INDICATION: AMS. COMPARISON: 05/10/2021. TECHNIQUE: CT BRAIN PERFORMED IN THE AXIAL PLANE. CORONAL RECONSTRUCTION IMAGES ARE PERFORMED. FINDINGS: LATERAL VENTRICLES ARE MIDLINE SYMMETRIC AND WITH NO INTERVAL CHANGE IN SIZE. THIRD AND 4TH VENTRICLES PROPORTIONATE THERE IS MILD PROMINENCE OF SULCI REPRESENTING SOME MILD THE CEREBRAL ATROPHY BUT STABLE AND PER PROPORTIONATE TO THE VENTRICULAR SIZE. SOME HETEROGENEOUS LOW-ATTENUATION WHITE MATTER CHANGES ARE SUGGESTED IN SYMMETRIC PATTERN REPRESENTING CHRONIC SMALL VESSEL WHITE MATTER ISCHEMIC DISEASE. BENNETT-WHITE JUNCTION DIFFERENTIATION IS WELL MAINTAINED. THERE IS NO VASCULAR TERRITORY INFARCT, INTRA OR EXTRA-AXIAL HEMORRHAGE, MASS, MASS EFFECT OR EDEMA. BRAINSTEM UNREMARKABLE CEREBELLUM SYMMETRIC AND WITHOUT MASS OR POSTERIOR FOSSA HEMORRHAGE. THE BASAL CISTERNS ARE INTACT. MASTOID AERATION IS CLEAR FEW OF THE POSTERIOR ETHMOID AIR CELLS SHOW SOME MUCOSAL THICKENING VISUALIZED SINUSES OTHERWISE CLEAR. SKULL BASE AND CALVARIUM SHOW NO FRACTURE OR FOCAL LESION. THERE ARE SOME CALCIFICATIONS IN THE CAROTID SIPHONS. IMPRESSION: THERE IS MINIMAL CORTICAL ATROPHY WHICH IS PROPORTIONATE TO VENTRICULAR SIZE. NO ACUTE INFARCT, INTRACRANIAL HEMORRHAGE, MASS OR MASS EFFECT. NO VENTRICULOMEGALY. CHRONIC SMALL VESSEL WHITE MATTER ISCHEMIC CHANGES, STABLE. MINOR POSTERIOR ETHMOID AIR CELL MUCOSAL THICKENING WITH THE OTHER SINUSES CLEAR. SOME CALCIFICATIONS IN CAROTID SIPHONS BUT THE SKULL BASE AND CALVARIUM OTHERWISE UNREMARKABLE. STABLE EXAM. <Electronically signed by Gokul Quiles > 06/15/21 [id number]
[2021-06-15] MEDS ORDERED: DEXTROSE 50% 50 ML SYRINGE IV STA ×2 (14:53→18:36)
--- NOTE | 2021-06-15 15:04 | REP ---
INDICATION: Altered Mental Status. COMPARISON: Comparison study April 04, 2021. TECHNIQUE: Semi-erect portable chest x-ray. Two views.. FINDINGS: The lungs are hyperinflated consistent with COPD. Emphysematous changes are noted in the upper lobes. There is a skin fold in the right apex. There is no evidence of pneumothorax. Pleural angles are sharp. Heart size is normal. The aorta is slightly calcific. EKG electrodes are seen. An IVC filter is noted at the bottom of the imaging field of view.. IMPRESSION: Hyperinflation consistent with COPD. No acute infiltrate.. <Electronically signed by Tyson Savage > 06/15/21 1500
[2021-06-15 17:21] LABS: BASO % 0.5 % (0.0-1.0); EOS # 0.1 10^3/uL (0.0-0.5); EOS % 2.1 % (0.0-3.0); HEMATOCRIT 53.5 % (42.0-52.0); HEMOGLOBIN 16.6 g/dl (13.5-17.5); LYMPH # 1.5 10^3/uL (1.5-5.0); LYMPH % 26.3 % (24.0-44.0); MEAN CORPUSCULAR VOLUME 93.4 fl (80.0-96.0); MONO # 0.4 10^3/uL (0.0-0.8); MONO % 6.6 % (2.0-8.0); NEUTROPHILS # 3.7 10^3/uL (1.5-8.5); NEUTROPHILS % 64.3 % (36.0-66.0); PLATELET COUNT, AUTOMATED 204 10^3/uL (150-450); RED BLOOD COUNT 5.73 10^6/uL (4.30-6.10); WHITE BLOOD COUNT 5.8 10^3/uL (4.0-10.0)
[2021-06-15 17:27] LABS: OSMOLALITY SERUM 329 MOSM/KG (280-301)
[2021-06-15 17:32] LABS: ALBUMIN 4.3 GM/DL (3.2-5.2); ALT/SGPT 14 U/L (12-78); BILIRUBIN,DIRECT 0.2 MG/DL (0.0-0.2); BILIRUBIN,TOTAL 0.7 MG/DL (0.2-1.0); BLOOD UREA NITROGEN 47 MG/DL (7-18); CARBON DIOXIDE LEVEL 26 MEQ/L (21-32); CHLORIDE LEVEL 116 MEQ/L (98-107); CK-MB VALUE MASS < 1.0 NG/ML (<3.6); CPK CREATINE PHOSPHOKINASE 60 U/L (39-308); GLOMERULAR FILTRATION RATE 50.5 (>49); GLUCOSE, FASTING 95 MG/DL (70-100); MB/CK RELATIVE INDEX 1.67 (< OR =4); POTASSIUM SERUM 3.8 MEQ/L (3.5-5.1); SODIUM LEVEL 150 MEQ/L (136-145); THYROID STIMULATING HORMONE 0.888 uIU/ML (0.358-3.740); TOTAL PROTEIN 8.5 GM/DL (6.4-8.2); TROPONIN I < 0.02 NG/ML (< 0.10)
[2021-06-15] MEDS ORDERED: D5W/0.45% SODIUM CHLORIDE 1,000 ML IV ONE (18:00)
[2021-06-15 19:32] LABS: RSV AMPLIFICATION NEGATIVE (NEGATIVE)
[2021-06-15] MEDS ORDERED: QUET50TA48 PO (20:36)
[2021-06-15] MEDS ORDERED: OMEP-221 PO (20:36)
[2021-06-15] MEDS ORDERED: HOME MED LIST COMPLETE! XX SCH (20:40)
[2021-06-15] MEDS ORDERED: MOM 30ML SUSPENSION UDC PO PRN (21:10)
[2021-06-15] MEDS ORDERED: IPRATROPIUM 0.5MG/ALBUTEROL 2.5MG INH SOL UD 3ML (DUONEB) NEB PRN (21:10)
[2021-06-15] MEDS ORDERED: ALBUTEROL 90 MCG/ACT 8GM HFA INHALER INH PRN (21:10)
[2021-06-15] MEDS ORDERED: GLUCAGON INJ 1MG VIAL SC PRN (21:10)
[2021-06-15] MEDS ORDERED: MAALOX 30 ML SUSP *UDC PO PRN (21:10)
[2021-06-15] MEDS ORDERED: ACETAMINOPHEN TAB 650MG DOSE (2X325MG) PO PRN (21:10)
[2021-06-15] MEDS ORDERED: GLUCOSE 4GM CHEW TABLET PO PRN (21:10)
[2021-06-15] MEDS ORDERED: DEXTROSE 50% 50 ML SYRINGE IV PRN (21:10)
[2021-06-15 21:36] LABS: MAGNESIUM LEVEL 2.6 MG/DL (1.8-2.4)
--- NOTE | 2021-06-15 22:02 | HPEPDOC ---
General Date of Admission 06/15/21 Date of Service: Jun 15, 2021 Chief Complaint The patient is a 61-year-old male admitted with a reason for visit of Gen Med. Source: Patient (Patient oriented to self), Family () Exam Limitations: Dementia Associated Symptoms: Unobtainable History of Present Illness Zach Mock is a 61-year-old -Mosoth[place] male with a significant medical history of CVA, PE with IVC filter, protein calorie malnutrition, dysphagia, dementia with behavioral disturbance, history of alcohol dependence, LES, COPD, MDD, hypertension and aortic valve disorder who arrives to the ER after poor p.o. intake past week. Patient's at bedside and assists with HPI as patient poor historian and oriented to self only. Patient reports that patient for the past 2 weeks has stopped showering stop showing interest in doing anything or going anywhere, has been wanting to lay in bed most of the day refusing to eat or take many of his medications. When asked if patient is having trouble eating he reports that he "never knows what goes in will be Gritty out". His denies nausea or vomiting, but "always has secretions or needs to spit". She is unable to report last BM. reports that patient requires further assistance than she feels she can give at home. She does endorse patient has been wandering and been irritable recently. She reports that there are caretakers that come to help with ADLs but she describes that even they are having trouble working with the patient since he does not want to shower or do things. Patient's reports that she thinks it is time for placement for the patient. Pt currently denies ayers, sinus congestion, sore throat, productive cough, sob, palpitations, chest pain, n/v/d, weakness, sensory changes or syncope. Patient is very cachectic with notably dry mucous membranes. Patient did report some mild abdominal pain but vague with description or details and then requested something to eat. Of note, CT head nonacute, chest x-ray stable, UA pending. No leukocytosis or lactic acidosis. Creatinine 1.5, BUN 47, sodium 150 and chloride 116. Patient will be admitted for hydration and evaluation of presenting concerns. Home Medications Scheduled Allopurinol (Allopurinol) 100 Mg Tablet, 100 MG PO DAILY, (Reported) Amlodipine Besylate (Amlodipine Besylate) 10 Mg Tablet, 10 MG PO DAILY, (Reported) Aspirin (Aspirin) 81 Mg Tab.chew, 81 MG PO DAILY, (Reported) Atorvastatin Calcium (Atorvastatin Calcium) 40 Mg Tablet, 40 MG PO DAILY, (Reported) Cholecalciferol (Vitamin D3) (Vitamin D3) 25 Mcg Tablet, 25 MCG PO DAILY, (Reported) Ferrous Sulfate (Ferrous Sulfate) 324 Mg Tablet.dr, 324 MG PO DAILY, (Reported) Mometasone Furoate (Asmanex) 220 Mcg Aer.pow.ba, 1 PUFF INH QHS, (Reported) Omeprazole (Omeprazole) 40 Mg Capsule.dr, 40 MG PO DAILY, (Reported) Quetiapine Fumarate (Quetiapine Fumarate ER) 50 Mg Tab.er.24h, 50 MG PO QHS, (Reported) Sertraline HCl (Sertraline HCl) 25 Mg Tablet, 25 MG PO DAILY, (Reported) Spironolactone (Spironolactone) 25 Mg Tablet, 25 MG PO DAILY, (Reported) Tiotropium Br/Olodaterol HCl (Stiolto Respimat Inhal [place]) 4 Gm Mist.inhal, 2 PUFF INH QHS, (Reported) Scheduled PRN Albuterol Sulfate (Albuterol Sulfate Hfa) 8.5 Gm Hfa.aer.ad, 2 PUFFS INH Q6H PRN for SHORTNESS OF BREATH, (Reported) Allergies Coded Allergies: No Known Drug Allergies (Verified Allergy, Unknown, 02/09/20) Past Medical History Medical History CVA, pulmonary embolism with IVC filter placement, protein calorie malnutrition, dysphagia, dementia with behavioral disturbance, history of alcohol dependence, LES, COPD, MDD, hypertension and aortic valve disorder Surgical History G-tube placement and later removal in 2019, IVC filter placement Family History Significant Family History: No pertinent family hx Patient does report diabetes runs in the family Social History * Smoker: former Smoker Alcohol: Denies (History of EtOH abuse) Drugs: denies Recent Travel/Sick Contacts: Denies: Recent travel, 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 A-FIB/CHADSVASC A-FIB History Current/History of A-Fib/PAF?: No Current PO Anticoag Therapy: No Review of Systems Other systems Unable to obtain given patient's dementia. Physical Examination General Exam: Positive: Alert, Cooperative Eye Exam: Positive: PERRLA, Conjunctiva & lids normal, EOMI; Negative: Sclera icteric ENT Exam: Positive: Atraumatic, Pharynx Normal, Other ENT (Dentition with mild caries but no overt abscessed tooth); Negative: Mucous membr. moist/pink (Dry mucous membranes) Neck Exam: Positive: Supple; Negative: JVD, thyromegaly Chest Exam: Positive: Diminished; Negative: Wheezing Heart Exam: Positive: Rate Normal, Regular Rhythm, Normal S1, Normal S2; Negative: Murmurs, Rubs Telemetry: Positive: No significant arrhythmia Abdomen Exam: Positive: BS Hypoactive, Tenderness (Reports left umbilical quadrant tenderness) Extremity Exam: Positive: Normal pulses (Diminished 1+ pulses); Negative: Clubbing, Cyanosis, Edema, Tenderness, Swelling Skin Exam: Positive: Other skin issue (Dry skin, cool hands and feet); Negative: Breakdown, Lesion Neuro Exam: Positive: Normal Speech, Sensation Intact Psych Exam: Positive: Other (Patient denies depressed mood; he is unable to report why he has stopped wanting to go outside or shower); Negative: Memory Intact, Oriented x 3 (Patient oriented to self, he does have somewhat irritable/impatient affect) Vital Signs Vital Signs Date Time Temp Pulse Resp B/P (MAP) Pulse Ox O2 Delivery O2 Flow Rate FiO2 06/15/21 17:45 79 118/82 (94) 06/15/21 17:00 75 Room Air 06/15/21 13:44 96.9 16 Laboratory Data Labs 24H Laboratory Tests 2 06/15/21 14:47: Bedside Glucose (Misc Panel) 28*L 06/15/21 15:51: Bedside Glucose (Misc Panel) 99 06/15/21 16:42: Immature Granulocyte % (Auto) 0.2, Neutrophils (%) (Auto) 64.3, Lymphocytes (%) (Auto) 26.3, Monocytes (%) (Auto) 6.6, Eosinophils (%) (Auto) 2.1, Basophils (%) (Auto) 0.5, Neutrophils # (Auto) 3.7, Lymphocytes # (Auto) 1.5, Monocytes # (Auto) 0.4, Eosinophils # (Auto) 0.1, Basophils # (Auto) 0.0, Nucleated Red Blood Cells % (auto) 0.0, Anion Gap 8, Glomerular Filtration Rate 50.5, Osmolality 329H, Lactic Acid Level 1.8, Calcium Level 10.0, Total Bilirubin 0.7, Direct Bilirubin 0.2, Aspartate Amino Transf (AST/SGOT) 13, Alanine Aminotransferase (ALT/SGPT) 14, Alkaline Phosphatase 112, Ammonia < 10, Total Creatine Kinase 60, Creatine Kinase MB < 1.0, Creatine Kinase MB Relative Index 1.67, Troponin I < 0.02, Total Protein 8.5H, Albumin 4.3, Albumin/Globulin Ratio 1.0, Thyroid Stimulating Hormone (TSH) 0.888 06/15/21 18:24: Bedside Glucose (Misc Panel) 58L 06/15/21 18:38: Coronavirus (COVID-19)(PCR) NEGATIVE, Influenza Type A (RT-PCR) NEGATIVE, Influenza Type B (RT-PCR) NEGATIVE, Respiratory Syncytial Virus (PCR) NEGATIVE 06/15/21 19:27: Bedside Glucose (Misc Panel) 156H CBC/BMP Laboratory Tests 06/15/21 16:42 RAD Interpretation STUDY: CXR Rad Actions: Report Reviewed (Stable) STUDY: CT head RAD Interpretation: Unchanged Assessment/Plan 61-year-old -Mosoth[place] male with significant history of depression and advancing dementia who has reported anhedonia and poor p.o. intake/compliance with medicines in the past 2 weeks who presents with WHITLEY. 1. Hypernatremia and WHITLEY in setting of dehydration and failure to thrive: Likely advancing dementia and appetite loss. Could be component of depression as patient's also notes the patient has no interest to go anywhere or get out of bed; he stopped showering 2 weeks ago. She reports that he has been fairly noncompliant with medications and thus patient may need to consistently be on an antidepressant. Medication reconciliation reveals Seroquel and this will be continued. No identifiable trigger or stress life event reported per . -Plan to monitor patient, I's and O's. Hydration. -Aspiration precautions and plan to offer diet per March 2021 speech recommendations which would be pured diet with thin liquids. Monitor for any aspiration and consider if need for PEG replacement. -Avoid nephrotoxic agents and renally adjust medications -A.m. labs, consider renal ultrasound if fluid challenge without improvement in creatinine. 2. left umbilical abdominal tenderness: Patient poor historian and vague with symptom complaint. uncertain regarding when last BM was. Patient with notable poor p.o. intake and hypoactive bowel sounds. Abdomen soft but concave appearance given patient overall cachexia. -Plan for KUB and given patient history of constipation will begin bowel regimen. 3. Hypoglycemia in frail elder: Likely secondary to poor p.o. intake. Blood gl ucose 29 upon arrival to ED. Patient given D50 and dextrose IV fluids. No history of diabetes but there is a familial history. -Plan to check A1c. Consider if need for continuous dextrose fluids versus normal saline. 4. COPD without acute exacerbation: Chest x-ray nonacute, patient nonlabored breathing on room air however patient does have cool hands and SPO2 probe l abile. -Plan to obtain ABG to ensure oxygen saturation. -Continue inhalers as needed for shortness of breath/wheeze. -Continue home medication equivalent schedule inhalers. 5. Dysphagia with history of PEG tube: Chest x-ray without acute infiltration. No reported aspiration. Patient does still "spit" from time to time. As noted above we will proceed with aspiration precautions and speech rec diet (consider if patient needs to be n.p.o. and PEG placement depending family discussion). 6. History of PE, with IVC placement in 2019. Patient not on oral AC. Plan for SCD/teds and heparin subcu. 7. Hypertension: Blood pressure normotensive during admission. Monitor patient blood pressure. Plan to continue home medications with the exception of spironolactone given it WHITLEY. 8. GERD: Protonix daily. 9. Dementia with behavioral disturbance: Monitor patient and mood. did report that patient can be prone to wandering. De-escalation techniques and reorientation as needed. We will continue patient Seroquel. Consider as needed for any breakthrough agitation. Depending on patient response he may need a sitter tonight. Case management consult for placement. DVT: SCD/teds, heparin subcu. CODE STATUS: Patient with history of DNR/DNI on file in past. Addressed discussion with patient and and currently uncertain regarding this. Time spent educating regarding the advancing dementia and quality of life concerns if he were to undergo heroic measures in his current condition; discussed surviving CPR given patient frail cachectic state. At this time, ongoing discussion and patient remains full code. Also, broached the subject for level of aggression for interventions such as PEG tube placement again and this is also unknown. Pati Mock can be reached at phone number [phone]. She reports that she will come during visiting hours tomorrow. Disposition: Per patient requiring more time and attention and there are concerns with patient increased wandering and requiring higher level of support than months ago. Discussed the possibility of home hospice with dementia if patient did want DNR DNI, but this was not decided on and would prefer placement presently. Appreciate case management assistance for potential placement. Plan / VTE VTE Prophylaxis Ordered?: Yes JUAQUIN HAWLEY NP Jun 15, 2021 20:24
--- NOTE | 2021-06-15 23:50 | REPVR ---
PROCEDURE INFORMATION: Exam: XR Abdomen Exam date and time: 06/15/2021 11:11 PM Age: 61 years old Clinical indication: Other: Pain; Additional info: Abdominal pain TECHNIQUE: Imaging protocol: XR of the abdomen. Views: Frontal supine view of the abdomen. 1 View. COMPARISON: 1. CT ABD/PEL W/IV CONTRAST ONLY 2020-08-30 15:[address] ABD/PEL W/IV CONTRAST ONLY 2020-08-11 10:39 3. AL Abdomen,Flat Plate KUB 2020-08-21 09:41 4. AL Abdomen,Flat Plate KUB 2020-08-16 14:28 FINDINGS: Gastrointestinal tract: Normal. No bowel dilation. Vasculature: IVC filter. Bones/joints: Mild sacroiliac and lumbar spondylosis. IMPRESSION: No acute findings. COMMENTS: For patients with an IVC filter, recommend assessment for a management plan for the patient's IVC filter. If there is no established management plan, recommend referral to an interventional clinician on a nonemergent basis for evaluation. Electronically signed by: Tevin Francois On 06/15/2021 23:50:23 PM
[2021-06-16] MEDS: NS 1,000 ML IV SCH ×2 (00:03→09:13)
[2021-06-16] MEDS: DOCUSATE SOD LIQ 100MG/10ML UDC PO SCH ×3 (00:12→22:11)
[2021-06-16] MEDS: QUEtiapine FUMERATE XR 50 MG TABER PO SCH ×2 (00:12→22:11)
[2021-06-16 00:15] VITALS: BP 132/87
[2021-06-16 06:00] VITALS: BP 145/83
[2021-06-16] MEDS: HEPARIN SOD (PORCINE) 5000UNITS/ML 1ML VIAL/SYRINGE SC SCH ×3 (06:28→22:00)
[2021-06-16] MEDS: PANTOPRAZOLE 40MG TAB (PROTONIX) PO SCH (06:28)
[2021-06-16] MEDS: BUDESONIDE 0.5 MG/2 ML INHALATION SUSPENSION INH SCH ×2 (07:55→20:00)
[2021-06-16 07:58] LABS: BASO % 0.4 % (0.0-1.0); EOS # 0.2 10^3/uL (0.0-0.5); EOS % 2.8 % (0.0-3.0); HEMATOCRIT 50.6 % (42.0-52.0); HEMOGLOBIN 16.2 g/dl (13.5-17.5); LYMPH # 1.5 10^3/uL (1.5-5.0); LYMPH % 27.9 % (24.0-44.0); MEAN CORPUSCULAR HEMOGLOBIN 29.3 pg (27.0-33.0); MEAN CORPUSCULAR VOLUME 91.7 fl (80.0-96.0); MONO # 0.4 10^3/uL (0.0-0.8); MONO % 8.1 % (2.0-8.0); NEUTROPHILS # 3.3 10^3/uL (1.5-8.5); NEUTROPHILS % 60.4 % (36.0-66.0); PLATELET COUNT, AUTOMATED 187 10^3/uL (150-450); RED BLOOD COUNT 5.52 10^6/uL (4.30-6.10); WHITE BLOOD COUNT 5.5 10^3/uL (4.0-10.0)
[2021-06-16 08:18] LABS: HEMOGLOBIN A1c 5.2 %
[2021-06-16 08:21] LABS: BLOOD UREA NITROGEN 41 MG/DL (7-18); CALCIUM LEVEL 9.6 MG/DL (8.8-10.2); CARBON DIOXIDE LEVEL 25 MEQ/L (21-32); CHLORIDE LEVEL 123 MEQ/L (98-107); CREATININE FOR GFR 1.11 MG/DL (0.70-1.30); GLOMERULAR FILTRATION RATE > 60.0 (>49); GLUCOSE, FASTING 88 MG/DL (70-100); POTASSIUM SERUM 4.1 MEQ/L (3.5-5.1); SODIUM LEVEL 154 MEQ/L (136-145)
[2021-06-16] MEDS: SERTRALINE HCL 25 MG TABLET PO SCH (09:00)
[2021-06-16] MEDS: ATORVASTATIN 20 MG TAB PO SCH (09:00)
[2021-06-16] MEDS: ASPIRIN 81 MG CHEW TABLET PO SCH (09:00)
--- NOTE | 2021-06-16 09:32 | ECGEPIP ---
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
[2021-06-16] MEDS ORDERED: D5W/0.2% SODIUM CHLORIDE 1,000 ML IV ONE (13:05)
--- NOTE | 2021-06-16 13:10 | IPNPDOC ---
Text Note Date of Service The patient was seen on 06/16/21. NOTE Subjective: Patient nonverbal in the morning, does not follow commands, he is awake but not alert Objective: GENERAL APPEARANCE: Ill looking man with cachexia HEENT: no scleral icterus, no JVD, EOMI CARDIOVASCULAR: S1S2 LUNGS: Diminished lung sounds bilaterally ABDOMEN: soft & not tender w palpation MUSCULOSKELETAL: no cyanosis, no swelling INTEGUMENT: no generalized pallor NEUROLOGICAL: Does not follows commands, no nuchal rigidity, moves 4 limbs Assessment and plan Patient is 61 years old male with past medical history of CVA, PE with IVC filter, protein calorie malnutrition, dysphagia, dementia with behavioral disturbance, history of alcohol dependence, LES, COPD, MDD, hypertension and aortic valve disorder presented to the hospital with deconditioning Hypernatremia Most likely secondary to free water deficit I changed normal saline to D5 0.2% sodium chloride BMP every 6 hours WHITLEY Secondary to volume contraction Improved Continue to monitor Abdominal tenderness Abdominal x-ray negative for acute pathology Resolved in the morning dementia with behavioral disturbance/Wernicke's Korsakoff dementia Prognosis is poor Palliative care on board Deconditioning PT/OT Hypertension Continue home meds Cachexia/protein calorie malnutrition Full route specialist assessment BMI 15.1, muscle wasting Ensure pulmonary embolism with IVC filter placement Patient is not on oral targeted anticoagulation due to recent GI bleed Hyperlipidemia Continue statin CABG Not in acute exacerbation Continue inhalers CVA Continue statin and aspirin MDD Continue home meds DVT prophylaxis with heparin subcutaneous twice daily VS,Fishbone, I+O VS, Fishbone, I+O Laboratory Tests 06/15/21 16:42 06/16/21 07:47 Vital Signs Date Time Temp Pulse Resp B/P (MAP) Pulse Ox O2 Delivery O2 Flow Rate FiO2 06/16/21 08:31 Room Air 06/16/21 06:00 97.8 65 18 145/83 (103) 96 I&O- Last 24 Hours up to 6 AM 06/16/21 06:00 Intake Total 630 ml Output Total 0 ml Balance 630 ml RODOLFO YUAN DO Jun 16, 2021 13:10
[2021-06-16] MEDS: D5W/0.2% SODIUM CHLORIDE 1,000 ML IV SCH (16:54)
[2021-06-17] MEDS: D5W/0.2% SODIUM CHLORIDE 1,000 ML IV SCH ×2 (00:11→07:09)
[2021-06-17] MEDS: HEPARIN SOD (PORCINE) 5000UNITS/ML 1ML VIAL/SYRINGE SC SCH ×3 (06:00→21:50)
[2021-06-17] MEDS: PANTOPRAZOLE 40MG TAB (PROTONIX) PO SCH (06:08)
[2021-06-17] MEDS: BUDESONIDE 0.5 MG/2 ML INHALATION SUSPENSION INH SCH ×2 (08:00→20:10)
[2021-06-17] MEDS: DOCUSATE SOD LIQ 100MG/10ML UDC PO SCH ×2 (08:13→21:00)
[2021-06-17] MEDS: ASPIRIN 81 MG CHEW TABLET PO SCH (08:13)
[2021-06-17] MEDS: SERTRALINE HCL 25 MG TABLET PO SCH (08:13)
[2021-06-17] MEDS: ATORVASTATIN 20 MG TAB PO SCH (08:13)
[2021-06-17 12:32] LABS: BASO % 0.4 % (0.0-1.0); EOS # 0.2 10^3/uL (0.0-0.5); EOS % 3.4 % (0.0-3.0); HEMATOCRIT 43.8 % (42.0-52.0); LYMPH % 35.6 % (24.0-44.0); MEAN CORPUSCULAR HEMOGLOBIN 29.2 pg (27.0-33.0); MEAN CORPUSCULAR HGB CONC 31.5 g/dl (32.0-36.5); MEAN CORPUSCULAR VOLUME 92.6 fl (80.0-96.0); MONO # 0.5 10^3/uL (0.0-0.8); MONO % 8.8 % (2.0-8.0); NEUTROPHILS # 2.9 10^3/uL (1.5-8.5); NEUTROPHILS % 51.6 % (36.0-66.0); PLATELET COUNT, AUTOMATED 141 10^3/uL (150-450); RED BLOOD COUNT 4.73 10^6/uL (4.30-6.10); WHITE BLOOD COUNT 5.7 10^3/uL (4.0-10.0)
[2021-06-17 12:40] LABS: HEMOGLOBIN 13.8 g/dl (13.5-17.5)
[2021-06-17 13:07] LABS: BLOOD UREA NITROGEN 20 MG/DL (7-18); CALCIUM LEVEL 8.9 MG/DL (8.8-10.2); CARBON DIOXIDE LEVEL 25 MEQ/L (21-32); CHLORIDE LEVEL 117 MEQ/L (98-107); GLOMERULAR FILTRATION RATE > 60.0 (>49); GLUCOSE, FASTING 112 MG/DL (70-100); POTASSIUM SERUM 3.6 MEQ/L (3.5-5.1); SODIUM LEVEL 146 MEQ/L (136-145)
--- NOTE | 2021-06-17 13:29 | IPNPDOC ---
Text Note Date of Service The patient was seen on 06/17/21. NOTE Hospitalist Progress Note Subjective: Patient was seen and evaluated this morning. He is sitting upright in bed. He is awake and alert at this time, but is certainly confused. He does not know where he is, he does not know the year, does not know the president, and he actually only knew the month and day of his birthdate, but he thought that he was born in 1969 rather than 1959. He is not in pain. He does not have any other complaints at this time. Objective: General: Awake, alert, not oriented. Not in any acute distress. HEENT: Head normocephalic, atraumatic, sclera are nonicteric. Hearing is grossly intact to conversation. Respiratory: Clear to auscultation bilaterally with no wheezes, rales, or rhonchi. Cardiovascular: Regular rate and rhythm, with no rubs, gallops, or murmur. Abdomen: Soft, nontender, nondistended, no hepatosplenomegaly appreciated. Bowel sounds present. Extremities: 2+ pulses in the radial and dorsalis pedis bilaterally. No evidence of clubbing or cyanosis. Assessment/Plan: Hypernatremia -Apparently the patient had been refusing labs for the past 24 hours, given that he is much more amiable at this time I requested that we attempt to recheck his labs, and we have successfully done so. His hypernatremia is almost completely resolved, now only mildly elevated at 146, therefore I will discontinue all IV fluids at this time. His hyponatremia was suspected to be secondary to free water intake, this appears now to be fully repleted. he does appear to be tolerating oral intake, therefore we will just check labs on a daily basis. Acute kidney injury -Resolved Abdominal tenderness -Resolved Dementia with behavioral disturbance/Wernicke-Korsakoff dementia -Prognosis is poor -Consultation for palliative care has been requested, does not appear that they have evaluated the patient yet. Cachexia/protein calorie malnutrition BMI 15.1 Muscle wasting -Full weight training instructor assessment requested -Continue with dietary recommendations, add Ensure to all meals History of pulmonary embolism with IVC filter placement -Patient is not on oral anticoagulation due to recent GI bleed Hyperlipidemia COPD History of CVA Depression (major depressive disorder) -Chronic conditions complicating care -Continue home medications at their usual dose Physical deconditioning Inability to perform ADLs -Continue with recommendations from physical therapy and patient therapy -May require placement upon discharge VS,Camacho, I+O VSCamacho, I+O Laboratory Tests 06/17/21 12:08 Vital Signs Date Time Temp Pulse Resp B/P (MAP) Pulse Ox O2 Delivery O2 Flow Rate FiO2 06/16/21 14:00 68 14 98 Room Air 06/16/21 06:00 97.8 145/83 (103) I&O- Last 24 Hours up to 6 AM 06/17/21 06:00 Intake Total 1770 ml Output Total 0 ml Balance 1770 ml DEYSI BECKWITH DO Jun 17, 2021 13:29
[2021-06-17] MEDS: QUEtiapine FUMERATE XR 50 MG TABER PO SCH (21:00)
[2021-06-17 22:00] VITALS: BP 97/61
[2021-06-18] MEDS: HEPARIN SOD (PORCINE) 5000UNITS/ML 1ML VIAL/SYRINGE SC SCH ×4 (05:57→20:38)
[2021-06-18 06:00] VITALS: BP 123/75
[2021-06-18 06:09] LABS: BASO % 0.4 % (0.0-1.0); EOS # 0.2 10^3/uL (0.0-0.5); EOS % 3.4 % (0.0-3.0); HEMATOCRIT 48.3 % (42.0-52.0); HEMOGLOBIN 15.4 g/dl (13.5-17.5); LYMPH # 1.9 10^3/uL (1.5-5.0); LYMPH % 33.8 % (24.0-44.0); MEAN CORPUSCULAR HEMOGLOBIN 29.2 pg (27.0-33.0); MEAN CORPUSCULAR HGB CONC 31.9 g/dl (32.0-36.5); MEAN CORPUSCULAR VOLUME 91.5 fl (80.0-96.0); MONO # 0.4 10^3/uL (0.0-0.8); MONO % 7.9 % (2.0-8.0); NEUTROPHILS % 54.1 % (36.0-66.0); PLATELET COUNT, AUTOMATED 145 10^3/uL (150-450); RED BLOOD COUNT 5.28 10^6/uL (4.30-6.10); WHITE BLOOD COUNT 5.6 10^3/uL (4.0-10.0)
[2021-06-18 06:33] LABS: BLOOD UREA NITROGEN 14 MG/DL (7-18); CALCIUM LEVEL 9.4 MG/DL (8.8-10.2); CARBON DIOXIDE LEVEL 26 MEQ/L (21-32); CHLORIDE LEVEL 118 MEQ/L (98-107); CREATININE FOR GFR 0.96 MG/DL (0.70-1.30); GLOMERULAR FILTRATION RATE > 60.0 (>49); GLUCOSE, FASTING 86 MG/DL (70-100); POTASSIUM SERUM 3.7 MEQ/L (3.5-5.1); SODIUM LEVEL 150 MEQ/L (136-145)
[2021-06-18] MEDS ORDERED: D5W/0.2% SODIUM CHLORIDE 1,000 ML IV SCH (07:15)
[2021-06-18] MEDS: BUDESONIDE 0.5 MG/2 ML INHALATION SUSPENSION INH SCH ×2 (07:43→20:00)
[2021-06-18] MEDS: DOCUSATE SOD LIQ 100MG/10ML UDC PO SCH ×4 (09:00→20:50)
[2021-06-18] MEDS: ASPIRIN 81 MG CHEW TABLET PO SCH (09:26)
[2021-06-18] MEDS: SERTRALINE HCL 25 MG TABLET PO SCH (09:26)
[2021-06-18] MEDS: PANTOPRAZOLE 40MG TAB (PROTONIX) PO SCH (09:26)
[2021-06-18] MEDS: ATORVASTATIN 20 MG TAB PO SCH (09:29)
--- NOTE | 2021-06-18 18:53 | IPNPDOC ---
Text Note Date of Service The patient was seen on 06/18/21. NOTE Hospitalist Progress Note Subjective: Patient was sitting upright in bed this morning. The nurse was attempting to give him medications. It is interesting that he is able to swallow liquids, but despite multiple swallows with water the pill remained on his tongue. Kalyn barth, throughout the day apparently he has been combative, refusing medications, and he pulled out his IV. Multiple attempts to replace the IV were tried, but were unsuccessful, even with mitts on the patient. Objective: General: Awake, alert, not oriented. Not in any acute distress. HEENT: Head normocephalic, atraumatic, sclera are nonicteric. Hearing is grossly intact to conversation. Respiratory: Clear to auscultation bilaterally with no wheezes, rales, or rhonchi. Cardiovascular: Regular rate and rhythm, with no rubs, gallops, or murmur. Abdomen: Soft, nontender, nondistended, no hepatosplenomegaly appreciated. Bowel sounds present. Extremities: 2+ pulses in the radial and dorsalis pedis bilaterally. No evidence of clubbing or cyanosis. Assessment/Plan: Hypernatremia -His sodium did come back up a little bit from yesterday, therefore D5/0.2% fluids at 65 mL's per hour was started this morning, however he has now lost IV access. We will repeat BMP in the morning. Will leave IV out for now. Dementia with behavioral disturbance/Wernicke-Korsakoff dementia -Prognosis is poor -Consultation for palliative care has been requested Cachexia/protein calorie malnutrition BMI 15.1 Muscle wasting -Nutritional Assessment: * monitoring for discussion regarding PEG tube insertion and enteral support due to inadequate intake to support nutrition needs currently. He has a history of PEG feedings and NH stay with gradual progress and weight gain. Since removal of PEG tube he has decreased intake and weight loss. - Speech therapy and bedside swallow eval requested to evaluate safety and efficacy of ability for oral intake & whether or not PEG tube is once again necessary. History of pulmonary embolism with IVC filter placement -Patient is not on oral anticoagulation due to recent GI bleed Acute kidney injury Abdominal tenderness -Resolved Hyperlipidemia COPD History of CVA Depression (major depressive disorder) -Chronic conditions complicating care -Continue home medications at their usual dose Physical deconditioning Inability to perform ADLs -Continue with recommendations from physical therapy and patient therapy -PFS has been consulted, they are actively working on his case. It is likely that he will require a locked dementia unit. VS,Camacho, I+O VS, Camacho, I+O Laboratory Tests 06/17/21 12:08 06/18/21 05:50 Vital Signs Date Time Temp Pulse Resp B/P (MAP) Pulse Ox O2 Delivery O2 Flow Rate FiO2 06/18/21 06:00 98.7 68 20 123/75 (91) 94 Room Air I&O- Last 24 Hours up to 6 AM 06/18/21 06:00 Intake Total 2730 ml Output Total 200 ml Balance 2530 ml DEYSI BECKWITH DO Jun 18, 2021 07:16
[2021-06-18] MEDS: QUEtiapine FUMERATE XR 50 MG TABER PO SCH ×2 (20:38→21:00)
[2021-06-19 06:00] VITALS: BP 115/75
[2021-06-19] MEDS: HEPARIN SOD (PORCINE) 5000UNITS/ML 1ML VIAL/SYRINGE SC SCH ×3 (06:00→22:00)
[2021-06-19 06:36] LABS: BASO % 0.4 % (0.0-1.0); EOS # 0.2 10^3/uL (0.0-0.5); EOS % 3.2 % (0.0-3.0); HEMATOCRIT 44.8 % (42.0-52.0); HEMOGLOBIN 14.4 g/dl (13.5-17.5); LYMPH # 1.6 10^3/uL (1.5-5.0); LYMPH % 28.5 % (24.0-44.0); MEAN CORPUSCULAR HEMOGLOBIN 29.3 pg (27.0-33.0); MEAN CORPUSCULAR HGB CONC 32.1 g/dl (32.0-36.5); MEAN CORPUSCULAR VOLUME 91.1 fl (80.0-96.0); MONO # 0.4 10^3/uL (0.0-0.8); MONO % 6.9 % (2.0-8.0); NEUTROPHILS # 3.4 10^3/uL (1.5-8.5); NEUTROPHILS % 60.8 % (36.0-66.0); PLATELET COUNT, AUTOMATED 103 10^3/uL (150-450); RED BLOOD COUNT 4.92 10^6/uL (4.30-6.10); WHITE BLOOD COUNT 5.5 10^3/uL (4.0-10.0)
[2021-06-19] MEDS: PANTOPRAZOLE 40MG TAB (PROTONIX) PO SCH (06:38)
[2021-06-19 07:01] LABS: BLOOD UREA NITROGEN 11 MG/DL (7-18); CALCIUM LEVEL 8.9 MG/DL (8.8-10.2); CARBON DIOXIDE LEVEL 25 MEQ/L (21-32); CHLORIDE LEVEL 113 MEQ/L (98-107); CREATININE FOR GFR 0.76 MG/DL (0.70-1.30); GLOMERULAR FILTRATION RATE > 60.0 (>49); GLUCOSE, FASTING 87 MG/DL (70-100); POTASSIUM SERUM 3.8 MEQ/L (3.5-5.1); SODIUM LEVEL 148 MEQ/L (136-145)
[2021-06-19] MEDS: BUDESONIDE 0.5 MG/2 ML INHALATION SUSPENSION INH SCH ×2 (07:27→20:00)
[2021-06-19] MEDS: DOCUSATE SOD LIQ 100MG/10ML UDC PO SCH ×2 (08:42→21:00)
[2021-06-19 10:00] VITALS: BP 115/75
[2021-06-19] MEDS: SERTRALINE HCL 25 MG TABLET PO SCH (10:00)
[2021-06-19] MEDS: ASPIRIN 81 MG CHEW TABLET PO SCH (10:00)
[2021-06-19] MEDS: ATORVASTATIN 20 MG TAB PO SCH (10:00)
[2021-06-19] MEDS ORDERED: VARIBAR NECTAR 40% w/v 240ML SUSP BTL As Ordered ONE (10:39)
[2021-06-19] MEDS ORDERED: VARIBAR PUDDING 40% w/v 230ML TUBE As Ordered ONE (10:39)
[2021-06-19] MEDS ORDERED: E-Z-PAQUE 96% w/w SUSP 176GM BTL As Ordered ONE (10:40)
[2021-06-19] MEDS ORDERED: BARIUM SULFATE 700 MG TABLET (E-Z-DISK) As Ordered ONE (10:40)
--- NOTE | 2021-06-19 13:00 | IPNPDOC ---
Text Note Date of Service The patient was seen on 06/19/21. NOTE Subjective: Patient is a 61-year-old male who presented to the hospital with a gitation secondary to dementia. Multiple attempts were made to place an IV yesterday however, they were unsuccessful. Patient has been combative and refusing medications. Patient was sleeping and stated he just wanted to go back to sleep during my examination and did not want to answer any questions. Patient said multiple times that he was fine and did not need us to do anything for him. Review of systems: Unable able to be obtained as the patient refused to answer questions Physical exam: Vitals: See below General: Alert but not oriented male patient who was slightly agitated during t he examination. Patient did not appear to be in any acute distress. HEENT: Normocephalic, atraumatic, moist mucous membranes. Neck: No lymphadenopathy or thyromegaly Cardiac: Regular rate and rhythm, no murmurs, normal S1, normal S2 Pulm: Clear to auscultation bilaterally. No wheezes, rhonchi, rales Abd: Nondistended, nontender to palpation, normal bowel sounds Ext: No edema bilateral lower extremities Labs: See below Imaging: No new imaging has been performed Assessment/plan: 61-year-old male with a past history of dementia who presents with hypernatremia and acute kidney injury as well as cachexia/protein calorie malnutrition. 1. Hypernatremia. Patient's sodium did come back up yesterday. This is most likely due to decreased free water intake as the patient has not been eating or drinking much. Repeat BMP shows a mild improvement in the patient's hypernatremia. We will continue to monitor the patient. 2. Dementia with behavioral disturbances/Warnicke Korsakoff dementia. Patient was a heavy alcoholic drinker but has not had an alcoholic beverage in about a year. Patient had been at [facility] until last summer when he was discharged home with his . Patient did have a PEG tube at that time however, patient was able to eat and drink to maintain his weight and the PEG tube was removed. Due to the patient's recent worsening of his behaviors, patient will not be able to go home will need placement in a dementia unit. 3. Cachexia/protein calorie malnutrition. Patient's BMI is 15.1. Patient has muscle wasting. Nutritional assessment was performed and stated they monitor for discussion regarding PEG tube insertion with enteral support due to carmelo dequate intake to support nutritional needs currently. Patient had PEG tube as above. 4. History of pulmonary embolism with IVC filter. Not on oral anticoagulation due to recent GI bleed. 5. Acute kidney injury. Resolved. This is most likely secondary to decreased free water intake. 6. Hyperlipidemia. Continue medications 7. COPD, not in exacerbation continue home medications. 8. Depression, continue home medications 9. Physical deconditioning. Continue with physical therapy. DVT Prophylaxis: Heparin has been ordered however, the patient is refusing this. Disposition: Pending placement in a locked dementia unit VS,Camacho, I+O VS, Camacho, I+O Laboratory Tests 06/19/21 06:25 Vital Signs Date Time Temp Pulse Resp B/P (MAP) Pulse Ox O2 Delivery O2 Flow Rate FiO2 06/19/21 10:00 68 115/75 06/19/21 06:00 98.9 17 96 Room Air I&O- Last 24 Hours up to 6 AM 06/19/21 06:00 Intake Total 1040 ml Output Total 275 ml Balance 765 ml YEHUDA BACK DO Jun 19, 2021 13:00
[2021-06-19] MEDS: QUEtiapine FUMERATE XR 50 MG TABER PO SCH (21:00)
[2021-06-20] MEDS: HEPARIN SOD (PORCINE) 5000UNITS/ML 1ML VIAL/SYRINGE SC SCH (06:00)
[2021-06-20] MEDS: PANTOPRAZOLE 40MG TAB (PROTONIX) PO SCH (06:07)
[2021-06-20] MEDS: BUDESONIDE 0.5 MG/2 ML INHALATION SUSPENSION INH SCH (07:15)
[2021-06-20] MEDS: DOCUSATE SOD LIQ 100MG/10ML UDC PO SCH (09:00)
[2021-06-20] MEDS: ASPIRIN 81 MG CHEW TABLET PO SCH (09:00)
[2021-06-20] MEDS: ATORVASTATIN 20 MG TAB PO SCH (09:00)
[2021-06-20] MEDS: SERTRALINE HCL 25 MG TABLET PO SCH (09:07)
--- NOTE | 2021-06-20 11:32 | DS.PDOC ---
Discharge Summary General Date of Admission Jun 15, 2021 at 21:09 Date of Discharge 06/20/2021 Primary Care Physician: Justus Rowan DO Attending Physician: YEHUDA BACK DO Discharge Summary PROCEDURES PERFORMED DURING STAY: None. ADMITTING DIAGNOSES: 1. Hypernatremia. 2. Acute kidney injury 3. Left umbilical abdominal tenderness 4. Hyperglycemia 5. COPD without acute exacerbation 6. Dysphagia with history of PEG tube 7. History of pulmonary embolism with IVC placement thousand 20 8. Hypertension 9. GERD 10. Dementia with behavioral disturbance DISCHARGE DIAGNOSES: 1. Hyponatremia, improved. 2. Acute kidney injury, resolved 3. Left umbilical abdominal tenderness 4. Hyperglycemia 5. COPD without acute exacerbation 6. Dysphagia with history of PEG tube 7. History of pulmonary embolism with IVC placement thousand 20 8. Hypertension 9. GERD 10. Dementia with behavioral disturbance COMPLICATIONS/CHIEF COMPLAINT: Cas (Acute Kidney Injury),Failure To Thrive. HISTORY OF PRESENT ILLNESS: Patient is a 61-year-old male who presented to the emergency department after poor oral intake. Patient's provides most of the history and states that patient stopped showering and showing interest in doing anything or going anywhere about 2 weeks prior to his admission. Patient wanted to lay in bed most of the day and refused to eat or take any of his medications. Patient had been complaining of a bad taste in the mouth and difficulty swallowing and was admitted in March 2021. Patient had been at [facility] and had a feeding tube placed because he had poor nutritional intake and lost weight. Patient was able to maintain his weight without the use of the PEG tube for quite some time so the PEG tube has been removed. Patient has been getting worse to the point where the patient's is no longer able to care for him. Patient was admitted in the hospital for hypernatremia and acute kidney injury in the setting of dehydration due to failure to thrive HOSPITAL COURSE: Patient was able to eat small amounts of food specifically ice cream throughout his hospitalization. Patient was receiving IV fluids however, his IV had fallen out and we were unable to replace it as the patient was becoming uncooperative during the placement of the IV. We were able to push oral fluids and food. Patient's hypernatremia did improve.. Patient was deemed necessary to be in a locked unit due to his behaviors and him being a flight risk. Locked unit was found for the patient and the patient was deemed ready for discharge. Patient's acute kidney injury did resolve. Patient was deemed ready for discharge on 06/20/2021. DISCHARGE MEDICATIONS: Please see below. ALLERGIES: Please see below. PHYSICAL EXAMINATION ON DISCHARGE: VITAL SIGNS: Please see below. General: Alert but not oriented male patient who was sitting up in bed when I walked in the room. Patient was complaining about his breakfast. Patient did not appear to be in any acute distress. HEENT: Normocephalic, atraumatic, moist mucous membranes. Neck: No lymphadenopathy or thyromegaly Cardiac: Regular rate and rhythm, no murmurs, normal S1, normal S2 Pulm: Clear to auscultation bilaterally. No wheezes, rhonchi, rales Abd: Nondistended, nontender to palpation, normal bowel sounds Ext: No edema bilateral lower extremities LABORATORY DATA: Please see below. IMAGING: Chest x-ray performed on 06/15/2021 was reported to show hyperinflation consistent with COPD. No acute infiltrate. CT of the head without contrast performed on 06/15/2021 is reported to show minimal cortical atrophy which is proportionate to ventricular size. No acute infarct, intracranial hemorrhage, mass or mass-effect. No ventriculomegaly. Chronic small vessel white matter ischemic changes, stable. Minor posterior ethmoid air cell mucosal thickening with other sinuses clear. Some calcification of the carotids siphons but the skull base and calvarium are othe rwise unremarkable. Stable exam. Abdominal x-ray performed on 06/15/2021 was reported to show no acute findings PROGNOSIS: Fair ACTIVITY: As tolerated. DIET: Pured diet DISCHARGE PLAN: Discharge to the [facility] DISPOSITION: . DISCHARGE INSTRUCTIONS: 1. Follow-up with the providers and staff at [facility]. ITEMS TO FOLLOWUP ON ON OUTPATIENT: 1. Follow-up on behaviors and resolution of hypernatremia DISCHARGE CONDITION: Stable. TIME SPENT ON DISCHARGE: 35 minutes. Vital Signs/I&Os Vital Signs Date Time Temp Pulse Resp B/P (MAP) Pulse Ox O2 Delivery O2 Flow Rate FiO2 06/19/21 10:00 68 115/75 06/19/21 06:00 98.9 17 96 Room Air I&O- Last 24 Hours up to 6 AM 06/20/21 05:59 Intake Total 600 ml Balance 600 ml Laboratory Data Labs 24H Laboratory Tests 2 06/19/21 17:00: Coronavirus (COVID-19)(PCR) NEGATIVE Discharge Medications Scheduled Allopurinol (Allopurinol) 100 Mg Tablet, 100 MG PO DAILY, (Reported) Amlodipine Besylate (Amlodipine Besylate) 10 Mg Tablet, 10 MG PO DAILY, (Reported) Aspirin (Aspirin) 81 Mg Tab.chew, 81 MG PO DAILY, (Reported) Atorvastatin Calcium (Atorvastatin Calcium) 40 Mg Tablet, 40 MG PO DAILY, (Reported) Cholecalciferol (Vitamin D3) (Vitamin D3) 25 Mcg Tablet, 25 MCG PO DAILY, (Reported) Ferrous Sulfate (Ferrous Sulfate) 324 Mg Tablet.dr, 324 MG PO DAILY, (Reported) Mometasone Furoate (Asmanex) 220 Mcg Aer.pow.ba, 1 PUFF INH QHS, (Reported) Omeprazole (Omeprazole) 40 Mg Capsule.dr, 40 MG PO DAILY, (Reported) Quetiapine Fumarate (Quetiapine Fumarate ER) 50 Mg Tab.er.24h, 50 MG PO QHS, (Reported) Sertraline HCl (Sertraline HCl) 25 Mg Tablet, 25 MG PO DAILY, (Reported) Spironolactone (Spironolactone) 25 Mg Tablet, 25 MG PO DAILY, (Reported) Tiotropium Br/Olodaterol HCl (Stiolto Respimat Inhal [place]) 4 Gm Mist.inhal, 2 PUFF INH QHS, (Reported) Scheduled PRN Albuterol Sulfate (Albuterol Sulfate Hfa) 8.5 Gm Hfa.aer.ad, 2 PUFFS INH Q6H PRN for SHORTNESS OF BREATH, (Reported) Allergies Coded Allergies: No Known Drug Allergies (Verified Allergy, Unknown, 02/09/20) YEHUDA BACK DO Jun 20, 2021 11:32
[2021-06-20] MEDS ORDERED: QUEtiapine FUMARATE 50MG TAB PO ONE (12:00)
== END 2021-06-20 13:30 | DRG 469 ==
LOC: M ED 13:15 → M ED INP 21:09 → ENRESERV 22:52 → M MS5PR 23:43
PROVIDERS: ADMIT Family Medicine; ATTEND Family Medicine
DX: N17.9 Acute kidney failure, unspecified (principal); R64 Cachexia; E87.0 Hyperosmolality and hypernatremia; F03.91 Unspecified dementia, unspecified severity, with behavioral disturbance; E46 Unspecified protein-calorie malnutrition; R13.10 Dysphagia, unspecified; D50.9 Iron deficiency anemia, unspecified; F32.9 Major depressive disorder, single episode, unspecified; I69.391 Dysphagia following cerebral infarction; F10.21 Alcohol dependence, in remission; I10 Essential (primary) hypertension; R62.7 Adult failure to thrive; R10.825 Periumbilic rebound abdominal tenderness; J44.9 Chronic obstructive pulmonary disease, unspecified; E16.2 Hypoglycemia, unspecified; K21.9 Gastro-esophageal reflux disease without esophagitis; I35.8 Other nonrheumatic aortic valve disorders; Z95.828 Presence of other vascular implants and grafts; Z86.711 Personal history of pulmonary embolism; Z79.82 Long term (current) use of aspirin; Z79.899 Other long term (current) drug therapy; Z68.1 Body mass index [BMI] 19.9 or less, adult; Z74.1 Need for assistance with personal care; Z20.822 Contact with and (suspected) exposure to COVID-19

== ENCOUNTER 2022-05-15 18:07 | Inpatient (IN) | payer MEDICARE, OTHER ==
[~2022-05-15] VITALS: Ht 195.6 cm; Wt 79.0 kg
[~2022-05-15 18:07] MED LIST changes: +ALBU2.5V10 INH; -ALBU83IN INH; -ASMA220A IN; -ASMA220A INH; +MOME220A IN; +MOME220A INH; +OMEP-173 GT; +OMEP-173 PO; -OMEP-218 GT; -OMEP-218 PO; -OMEP-221 PO; +OMEP40CA5 PO; +QUET50TA48 PO
[2022-05-15 22:59] LABS: RSV AMPLIFICATION NEGATIVE (NEGATIVE)
[2022-05-16 00:07] LABS: ALBUMIN 3.6 GM/DL (3.2-5.2); ALT/SGPT 10 U/L (12-78); BILIRUBIN,DIRECT 0.1 MG/DL (0.0-0.2); BILIRUBIN,TOTAL 0.6 MG/DL (0.2-1.0); BLOOD UREA NITROGEN 4 MG/DL (7-18); CALCIUM LEVEL 9.4 MG/DL (8.8-10.2); CARBON DIOXIDE LEVEL 24 MEQ/L (21-32); CHLORIDE LEVEL 109 MEQ/L (98-107); CREATININE FOR GFR 0.79 MG/DL (0.70-1.30); ETHYL ALCOHOL (ETHANOL) 0.004 % (0.000-0.010); GLOMERULAR FILTRATION RATE > 60.0 (>49); GLUCOSE, FASTING 92 MG/DL (70-100); POTASSIUM SERUM 3.8 MEQ/L (3.5-5.1); SODIUM LEVEL 139 MEQ/L (136-145); TOTAL PROTEIN 7.4 GM/DL (6.4-8.2)
[2022-05-16 00:10] LABS: BASO # 0.1 10^3/uL (0.0-0.2); BASO % 0.8 % (0.0-1.0); EOS # 0.2 10^3/uL (0.0-0.5); EOS % 3.8 % (0.0-3.0); HEMATOCRIT 44.6 % (42.0-52.0); LYMPH # 2.2 10^3/uL (1.5-5.0); LYMPH % 35.9 % (24.0-44.0); MEAN CORPUSCULAR HEMOGLOBIN 29.8 pg (27.0-33.0); MEAN CORPUSCULAR HGB CONC 33.6 g/dl (32.0-36.5); MEAN CORPUSCULAR VOLUME 88.7 fl (80.0-96.0); MONO # 0.5 10^3/uL (0.0-0.8); MONO % 8.5 % (2.0-8.0); NEUTROPHILS % 50.2 % (36.0-66.0); PLATELET COUNT, AUTOMATED 225 10^3/uL (150-450); RED BLOOD COUNT 5.03 10^6/uL (4.30-6.10)
[2022-05-16] MEDS ORDERED: QUEtiapine FUMARATE 50MG TAB PO ONE (01:55)
[2022-05-16] MEDS ORDERED: SPIRONOLACTONE 25 MG TAB PO ONE (01:55)
[2022-05-16 02:07] LABS: AMPHETAMINES LEVEL URINE NEGATIVE (NEGATIVE); BARBITURATES URINE NEGATIVE (NEGATIVE); BENZODIAZEPINES URINE NEGATIVE (NEGATIVE); CANNABINOIDS URINE NEGATIVE (NEGATIVE); COCAINE METABOLITE URINE NEGATIVE (NEGATIVE); METHADONE URINE NEGATIVE (NEGATIVE); OPIATES URINE NEGATIVE (NEGATIVE); PHENCYCLIDINE URINE NEGATIVE (NEGATIVE)
[2022-05-16] MEDS ORDERED: ACETAMINOPHEN TAB 650MG DOSE (2X325MG) PO PRN (02:10)
[2022-05-16] MEDS ORDERED: QUEtiapine FUMERATE XR 50MG TABER PO ONE (03:00)
[2022-05-16] MEDS ORDERED: **hydrALAZINE HCL** 25 MG TAB PO PRN (05:50)
[2022-05-16] MEDS ORDERED: SENN-23 PO (06:28)
[2022-05-16] MEDS ORDERED: ASPI-161 PO (06:28)
[2022-05-16] MEDS ORDERED: HOME MED LIST COMPLETE! XX SCH (06:30)
[2022-05-16 06:56] LABS: HEMATOCRIT 45.1 % (42.0-52.0); MEAN CORPUSCULAR HEMOGLOBIN 29.1 pg (27.0-33.0); MEAN CORPUSCULAR HGB CONC 33.3 g/dl (32.0-36.5); MEAN CORPUSCULAR VOLUME 87.4 fl (80.0-96.0); PLATELET COUNT, AUTOMATED 216 10^3/uL (150-450); RED BLOOD COUNT 5.16 10^6/uL (4.30-6.10); WHITE BLOOD COUNT 5.4 10^3/uL (4.0-10.0)
[2022-05-16 07:20] LABS: BLOOD UREA NITROGEN 4 MG/DL (7-18); CALCIUM LEVEL 9.5 MG/DL (8.8-10.2); CARBON DIOXIDE LEVEL 26 MEQ/L (21-32); CHLORIDE LEVEL 107 MEQ/L (98-107); CREATININE FOR GFR 0.77 MG/DL (0.70-1.30); GLOMERULAR FILTRATION RATE > 60.0 (>49); GLUCOSE, FASTING 93 MG/DL (70-100); POTASSIUM SERUM 3.6 MEQ/L (3.5-5.1); SODIUM LEVEL 138 MEQ/L (136-145)
[2022-05-16] MEDS: SPIRONOLACTONE 25 MG TAB PO SCH (09:00)
[2022-05-16 09:38] LABS: CHOLESTEROL LEVEL 121 MG/DL (<200); HDL CHOLESTEROL 44 MG/DL (>40); LDL CHOLESTEROL 62 MG/DL (<100); NON-HDL-C 77 MG/DL; TRIGLYCERIDES LEVEL 75 MG/DL (<150)
[2022-05-16] MEDS: ASPIRIN 81MG ENTERIC TABLET PO SCH (11:01)
[2022-05-16] MEDS: allopurinoL 100 MG TAB PO SCH (11:01)
[2022-05-16] MEDS: ENOXAPARIN 40MG/0.4ML SYRINGE (J1650 PER 10MG) SC SCH (11:01)
[2022-05-16] MEDS: SERTRALINE HCL 25 MG TABLET PO SCH (11:01)
[2022-05-16] MEDS: ATORVASTATIN 20 MG TAB PO SCH (11:01)
[2022-05-16] MEDS: LACTULOSE 20 GM/30 ML SYRUP UD PO SCH ×2 (11:01→22:01)
[2022-05-16] MEDS: OMEPRAZOLE 20MG CAP PO SCH (11:01)
[2022-05-16 15:15] VITALS: BP 124/81
[2022-05-16 20:09] VITALS: BP 138/79
[2022-05-16] MEDS: SENOKOT S TAB PO SCH (22:01)
[2022-05-16] MEDS: QUEtiapine FUMERATE XR 50MG TABER PO SCH (22:01)
[2022-05-17 05:15] VITALS: BP 136/77
[2022-05-17 08:26] VITALS: BP 136/77
[2022-05-17] MEDS: ASPIRIN 81MG ENTERIC TABLET PO SCH (08:31)
[2022-05-17] MEDS: ENOXAPARIN 40MG/0.4ML SYRINGE (J1650 PER 10MG) SC SCH (08:31)
[2022-05-17] MEDS: OMEPRAZOLE 20MG CAP PO SCH (08:31)
[2022-05-17] MEDS: SERTRALINE HCL 25 MG TABLET PO SCH (08:31)
[2022-05-17] MEDS: allopurinoL 100 MG TAB PO SCH (08:33)
[2022-05-17] MEDS: ATORVASTATIN 20 MG TAB PO SCH (08:34)
[2022-05-17] MEDS: SPIRONOLACTONE 25 MG TAB PO SCH (08:34)
[2022-05-17] MEDS: LACTULOSE 20 GM/30 ML SYRUP UD PO SCH ×2 (08:34→20:21)
[2022-05-17 09:14] LABS: BLOOD UREA NITROGEN 5 MG/DL (7-18); CALCIUM LEVEL 9.8 MG/DL (8.8-10.2); CARBON DIOXIDE LEVEL 28 MEQ/L (21-32); CHLORIDE LEVEL 108 MEQ/L (98-107); CREATININE FOR GFR 0.95 MG/DL (0.70-1.30); GLOMERULAR FILTRATION RATE > 60.0 (>49); GLUCOSE, FASTING 91 MG/DL (70-100); POTASSIUM SERUM 4.9 MEQ/L (3.5-5.1); SODIUM LEVEL 140 MEQ/L (136-145)
[2022-05-17 14:00] VITALS: BP 155/92
[2022-05-17] MEDS: QUEtiapine FUMERATE XR 50MG TABER PO SCH (20:21)
[2022-05-17] MEDS: SENOKOT S TAB PO SCH (20:21)
[2022-05-17 20:32] VITALS: BP 104/62
[2022-05-18 06:16] VITALS: BP 129/77
[2022-05-18] MEDS: ENOXAPARIN 40MG/0.4ML SYRINGE (J1650 PER 10MG) SC SCH (08:33)
[2022-05-18] MEDS: ASPIRIN 81MG ENTERIC TABLET PO SCH (08:33)
[2022-05-18] MEDS: SPIRONOLACTONE 25 MG TAB PO SCH (08:33)
[2022-05-18] MEDS: OMEPRAZOLE 20MG CAP PO SCH (08:33)
[2022-05-18] MEDS: LACTULOSE 20 GM/30 ML SYRUP UD PO SCH ×2 (08:33→20:21)
[2022-05-18] MEDS: SERTRALINE HCL 25 MG TABLET PO SCH (08:34)
[2022-05-18] MEDS: ATORVASTATIN 20 MG TAB PO SCH (08:34)
[2022-05-18] MEDS: allopurinoL 100 MG TAB PO SCH (08:34)
[2022-05-18] MEDS: SENOKOT S TAB PO SCH (20:21)
[2022-05-18] MEDS: QUEtiapine FUMERATE XR 50MG TABER PO SCH (20:22)
[2022-05-19 06:00] VITALS: BP 131/78
[2022-05-19] MEDS: LACTULOSE 20 GM/30 ML SYRUP UD PO SCH ×2 (07:51→20:48)
[2022-05-19] MEDS: OMEPRAZOLE 20MG CAP PO SCH (07:52)
[2022-05-19] MEDS: ENOXAPARIN 40MG/0.4ML SYRINGE (J1650 PER 10MG) SC SCH (07:52)
[2022-05-19] MEDS: ASPIRIN 81MG ENTERIC TABLET PO SCH (07:52)
[2022-05-19] MEDS: SPIRONOLACTONE 25 MG TAB PO SCH (07:52)
[2022-05-19] MEDS: SERTRALINE HCL 25 MG TABLET PO SCH (07:53)
[2022-05-19] MEDS: allopurinoL 100 MG TAB PO SCH (07:53)
[2022-05-19] MEDS: ATORVASTATIN 20 MG TAB PO SCH (07:53)
[2022-05-19] MEDS: QUEtiapine FUMERATE XR 50MG TABER PO SCH (20:49)
[2022-05-19] MEDS: SENOKOT S TAB PO SCH (20:49)
[2022-05-20 05:54] VITALS: BP 134/71
[2022-05-20] MEDS: ASPIRIN 81MG ENTERIC TABLET PO SCH (08:36)
[2022-05-20] MEDS: ATORVASTATIN 20 MG TAB PO SCH (08:36)
[2022-05-20] MEDS: LACTULOSE 20 GM/30 ML SYRUP UD PO SCH ×2 (08:36→20:04)
[2022-05-20] MEDS: SPIRONOLACTONE 25 MG TAB PO SCH (08:36)
[2022-05-20] MEDS: allopurinoL 100 MG TAB PO SCH (08:36)
[2022-05-20] MEDS: SERTRALINE HCL 25 MG TABLET PO SCH (08:36)
[2022-05-20] MEDS: OMEPRAZOLE 20MG CAP PO SCH (08:36)
[2022-05-20] MEDS: ENOXAPARIN 40MG/0.4ML SYRINGE (J1650 PER 10MG) SC SCH (08:37)
[2022-05-20] MEDS: SENOKOT S TAB PO SCH (20:04)
[2022-05-20] MEDS: QUEtiapine FUMERATE XR 50MG TABER PO SCH (20:04)
[2022-05-21 05:26] VITALS: BP 117/71
[2022-05-21] MEDS: LACTULOSE 20 GM/30 ML SYRUP UD PO SCH ×2 (08:27→20:26)
[2022-05-21] MEDS: allopurinoL 100 MG TAB PO SCH (08:27)
[2022-05-21] MEDS: SERTRALINE HCL 25 MG TABLET PO SCH (08:27)
[2022-05-21] MEDS: ATORVASTATIN 20 MG TAB PO SCH (08:27)
[2022-05-21] MEDS: OMEPRAZOLE 20MG CAP PO SCH (08:28)
[2022-05-21] MEDS: ASPIRIN 81MG ENTERIC TABLET PO SCH (08:28)
[2022-05-21] MEDS: ENOXAPARIN 40MG/0.4ML SYRINGE (J1650 PER 10MG) SC SCH (08:28)
[2022-05-21] MEDS: SPIRONOLACTONE 25 MG TAB PO SCH (08:28)
[2022-05-21] MEDS: SENOKOT S TAB PO SCH (20:25)
[2022-05-21] MEDS: QUEtiapine FUMERATE XR 50MG TABER PO SCH (20:25)
[2022-05-22 06:00] VITALS: BP 116/66
[2022-05-22] MEDS: LACTULOSE 20 GM/30 ML SYRUP UD PO SCH ×2 (08:07→20:44)
[2022-05-22] MEDS: ATORVASTATIN 20 MG TAB PO SCH (08:08)
[2022-05-22] MEDS: SERTRALINE HCL 25 MG TABLET PO SCH (08:08)
[2022-05-22] MEDS: SPIRONOLACTONE 25 MG TAB PO SCH (08:08)
[2022-05-22] MEDS: ENOXAPARIN 40MG/0.4ML SYRINGE (J1650 PER 10MG) SC SCH (08:08)
[2022-05-22] MEDS: allopurinoL 100 MG TAB PO SCH (08:08)
[2022-05-22] MEDS: ASPIRIN 81MG ENTERIC TABLET PO SCH (08:08)
[2022-05-22] MEDS: OMEPRAZOLE 20MG CAP PO SCH (08:08)
[2022-05-22] MEDS: QUEtiapine FUMERATE XR 50MG TABER PO SCH (20:45)
[2022-05-22] MEDS: SENOKOT S TAB PO SCH (20:45)
[2022-05-23 05:12] VITALS: BP 129/62
[2022-05-23] MEDS: ATORVASTATIN 20 MG TAB PO SCH (08:18)
[2022-05-23] MEDS: SPIRONOLACTONE 25 MG TAB PO SCH (08:18)
[2022-05-23] MEDS: ASPIRIN 81MG ENTERIC TABLET PO SCH (08:18)
[2022-05-23] MEDS: OMEPRAZOLE 20MG CAP PO SCH (08:18)
[2022-05-23] MEDS: LACTULOSE 20 GM/30 ML SYRUP UD PO SCH ×2 (08:19→20:12)
[2022-05-23] MEDS: SERTRALINE HCL 25 MG TABLET PO SCH (08:19)
[2022-05-23] MEDS: ENOXAPARIN 40MG/0.4ML SYRINGE (J1650 PER 10MG) SC SCH (08:19)
[2022-05-23] MEDS: allopurinoL 100 MG TAB PO SCH (08:19)
[2022-05-23] MEDS: SENOKOT S TAB PO SCH (20:12)
[2022-05-23] MEDS: QUEtiapine FUMERATE XR 50MG TABER PO SCH (20:12)
[2022-05-24 06:00] VITALS: BP 129/73
[2022-05-24] MEDS: LACTULOSE 20 GM/30 ML SYRUP UD PO SCH ×2 (09:28→20:16)
[2022-05-24] MEDS: OMEPRAZOLE 20MG CAP PO SCH (09:28)
[2022-05-24] MEDS: ASPIRIN 81MG ENTERIC TABLET PO SCH (09:28)
[2022-05-24] MEDS: ATORVASTATIN 20 MG TAB PO SCH (09:28)
[2022-05-24] MEDS: SERTRALINE HCL 25 MG TABLET PO SCH (09:29)
[2022-05-24] MEDS: ENOXAPARIN 40MG/0.4ML SYRINGE (J1650 PER 10MG) SC SCH (09:29)
[2022-05-24] MEDS: allopurinoL 100 MG TAB PO SCH (09:29)
[2022-05-24] MEDS: SPIRONOLACTONE 25 MG TAB PO SCH (09:29)
[2022-05-24] MEDS: NICOTINE 14 MG/24 HR TRANSDERMAL TD SCH (17:10)
[2022-05-24] MEDS: SENOKOT S TAB PO SCH (20:16)
[2022-05-24] MEDS: QUEtiapine FUMERATE XR 50MG TABER PO SCH (20:16)
[2022-05-25 06:00] VITALS: BP 144/100
[2022-05-25] MEDS: ENOXAPARIN 40MG/0.4ML SYRINGE (J1650 PER 10MG) SC SCH (08:33)
[2022-05-25] MEDS: LACTULOSE 20 GM/30 ML SYRUP UD PO SCH ×2 (08:33→21:01)
[2022-05-25] MEDS: allopurinoL 100 MG TAB PO SCH (08:34)
[2022-05-25] MEDS: ATORVASTATIN 20 MG TAB PO SCH (08:34)
[2022-05-25] MEDS: NICOTINE 14 MG/24 HR TRANSDERMAL TD SCH (08:34)
[2022-05-25] MEDS: OMEPRAZOLE 20MG CAP PO SCH (08:34)
[2022-05-25] MEDS: SPIRONOLACTONE 25 MG TAB PO SCH (08:34)
[2022-05-25] MEDS: SERTRALINE HCL 25 MG TABLET PO SCH (08:34)
[2022-05-25] MEDS: ASPIRIN 81MG ENTERIC TABLET PO SCH (08:35)
[2022-05-25] MEDS: QUEtiapine FUMERATE XR 50MG TABER PO SCH (21:01)
[2022-05-25] MEDS: SENOKOT S TAB PO SCH (21:01)
[2022-05-26 05:12] VITALS: BP 124/68
[2022-05-26] MEDS: ASPIRIN 81MG ENTERIC TABLET PO SCH (08:18)
[2022-05-26] MEDS: LACTULOSE 20 GM/30 ML SYRUP UD PO SCH ×2 (08:18→21:23)
[2022-05-26] MEDS: SERTRALINE HCL 25 MG TABLET PO SCH (08:18)
[2022-05-26] MEDS: ATORVASTATIN 20 MG TAB PO SCH (08:19)
[2022-05-26] MEDS: allopurinoL 100 MG TAB PO SCH (08:19)
[2022-05-26] MEDS: ENOXAPARIN 40MG/0.4ML SYRINGE (J1650 PER 10MG) SC SCH (08:19)
[2022-05-26] MEDS: NICOTINE 14 MG/24 HR TRANSDERMAL TD SCH (08:19)
[2022-05-26] MEDS: OMEPRAZOLE 20MG CAP PO SCH (08:19)
[2022-05-26] MEDS: SPIRONOLACTONE 25 MG TAB PO SCH (08:19)
[2022-05-26] MEDS: QUEtiapine FUMERATE XR 50MG TABER PO SCH (21:23)
[2022-05-26] MEDS: SENOKOT S TAB PO SCH (21:23)
[2022-05-27 07:14] VITALS: BP 128/65
[2022-05-27] MEDS: LACTULOSE 20 GM/30 ML SYRUP UD PO SCH ×2 (08:58→20:08)
[2022-05-27] MEDS: ATORVASTATIN 20 MG TAB PO SCH (08:58)
[2022-05-27] MEDS: SERTRALINE HCL 25 MG TABLET PO SCH (08:58)
[2022-05-27] MEDS: allopurinoL 100 MG TAB PO SCH (08:58)
[2022-05-27] MEDS: OMEPRAZOLE 20MG CAP PO SCH (08:58)
[2022-05-27] MEDS: ASPIRIN 81MG ENTERIC TABLET PO SCH (08:58)
[2022-05-27] MEDS: SPIRONOLACTONE 25 MG TAB PO SCH (08:58)
[2022-05-27] MEDS: NICOTINE 14 MG/24 HR TRANSDERMAL TD SCH (08:59)
[2022-05-27] MEDS: ENOXAPARIN 40MG/0.4ML SYRINGE (J1650 PER 10MG) SC SCH (08:59)
[2022-05-27] MEDS: SENOKOT S TAB PO SCH (20:08)
[2022-05-27] MEDS: QUEtiapine FUMERATE XR 50MG TABER PO SCH (20:08)
[2022-05-28 06:00] VITALS: BP 155/93
[2022-05-28 06:07] LABS: BASO # 0.1 10^3/uL (0.0-0.2); BASO % 0.8 % (0.0-1.0); EOS # 0.4 10^3/uL (0.0-0.5); EOS % 6.6 % (0.0-3.0); HEMATOCRIT 44.5 % (42.0-52.0); HEMOGLOBIN 15.1 g/dl (13.5-17.5); LYMPH # 2.5 10^3/uL (1.5-5.0); LYMPH % 42.2 % (24.0-44.0); MEAN CORPUSCULAR HEMOGLOBIN 29.9 pg (27.0-33.0); MEAN CORPUSCULAR HGB CONC 33.9 g/dl (32.0-36.5); MEAN CORPUSCULAR VOLUME 88.1 fl (80.0-96.0); MONO # 0.6 10^3/uL (0.0-0.8); MONO % 9.9 % (2.0-8.0); NEUTROPHILS # 2.4 10^3/uL (1.5-8.5); NEUTROPHILS % 40.2 % (36.0-66.0); PLATELET COUNT, AUTOMATED 208 10^3/uL (150-450); RED BLOOD COUNT 5.05 10^6/uL (4.30-6.10)
[2022-05-28 06:33] LABS: BLOOD UREA NITROGEN 10 MG/DL (7-18); GLUCOSE, FASTING 102 MG/DL (70-100)
[2022-05-28 06:34] LABS: CALCIUM LEVEL 9.6 MG/DL (8.8-10.2); CARBON DIOXIDE LEVEL 27 MEQ/L (21-32); CHLORIDE LEVEL 105 MEQ/L (98-107); CREATININE FOR GFR 0.93 MG/DL (0.70-1.30); GLOMERULAR FILTRATION RATE > 60.0 (>49); POTASSIUM SERUM 4.1 MEQ/L (3.5-5.1); SODIUM LEVEL 135 MEQ/L (136-145)
[2022-05-28] MEDS: SERTRALINE HCL 25 MG TABLET PO SCH (09:48)
[2022-05-28] MEDS: SPIRONOLACTONE 25 MG TAB PO SCH (09:48)
[2022-05-28] MEDS: ATORVASTATIN 20 MG TAB PO SCH (09:48)
[2022-05-28] MEDS: allopurinoL 100 MG TAB PO SCH (09:48)
[2022-05-28] MEDS: ASPIRIN 81MG ENTERIC TABLET PO SCH (09:48)
[2022-05-28] MEDS: OMEPRAZOLE 20MG CAP PO SCH (09:48)
[2022-05-28] MEDS: ENOXAPARIN 40MG/0.4ML SYRINGE (J1650 PER 10MG) SC SCH (09:49)
[2022-05-28] MEDS: NICOTINE 14 MG/24 HR TRANSDERMAL TD SCH (09:49)
[2022-05-28] MEDS: LACTULOSE 20 GM/30 ML SYRUP UD PO SCH ×2 (09:49→20:17)
[2022-05-28] MEDS: QUEtiapine FUMERATE XR 50MG TABER PO SCH (20:17)
[2022-05-28] MEDS: SENOKOT S TAB PO SCH (20:17)
[2022-05-29 06:00] VITALS: BP 134/95
[2022-05-29] MEDS: NICOTINE 14 MG/24 HR TRANSDERMAL TD SCH (08:54)
[2022-05-29] MEDS: OMEPRAZOLE 20MG CAP PO SCH (08:55)
[2022-05-29] MEDS: SERTRALINE HCL 25 MG TABLET PO SCH (08:55)
[2022-05-29] MEDS: ASPIRIN 81MG ENTERIC TABLET PO SCH (08:55)
[2022-05-29] MEDS: LACTULOSE 20 GM/30 ML SYRUP UD PO SCH ×2 (08:55→20:30)
[2022-05-29] MEDS: ATORVASTATIN 20 MG TAB PO SCH (08:55)
[2022-05-29] MEDS: SPIRONOLACTONE 25 MG TAB PO SCH (08:55)
[2022-05-29] MEDS: allopurinoL 100 MG TAB PO SCH (08:55)
[2022-05-29 08:56] VITALS: BP 127/75
[2022-05-29] MEDS: ENOXAPARIN 40MG/0.4ML SYRINGE (J1650 PER 10MG) SC SCH (08:56)
[2022-05-29] MEDS: SENOKOT S TAB PO SCH (20:30)
[2022-05-29] MEDS: QUEtiapine FUMERATE XR 50MG TABER PO SCH (20:30)
[2022-05-30 04:40] VITALS: BP 135/92
[2022-05-30] MEDS: OMEPRAZOLE 20MG CAP PO SCH (08:56)
[2022-05-30] MEDS: ASPIRIN 81MG ENTERIC TABLET PO SCH (08:56)
[2022-05-30] MEDS: allopurinoL 100 MG TAB PO SCH (08:56)
[2022-05-30] MEDS: SPIRONOLACTONE 25 MG TAB PO SCH (08:56)
[2022-05-30] MEDS: NICOTINE 14 MG/24 HR TRANSDERMAL TD SCH (08:56)
[2022-05-30] MEDS: ATORVASTATIN 20 MG TAB PO SCH (08:56)
[2022-05-30] MEDS: LACTULOSE 20 GM/30 ML SYRUP UD PO SCH ×2 (08:56→20:13)
[2022-05-30] MEDS: SERTRALINE HCL 25 MG TABLET PO SCH (08:56)
[2022-05-30] MEDS: ENOXAPARIN 40MG/0.4ML SYRINGE (J1650 PER 10MG) SC SCH (08:57)
[2022-05-30] MEDS ORDERED: hydrOXYzine 50 MG TAB PO ONE (20:00)
[2022-05-30] MEDS: RAMELTEON 8 MG TAB (ROZEREM) PO PRN (20:13)
[2022-05-30] MEDS: QUEtiapine FUMERATE XR 50MG TABER PO SCH (20:13)
[2022-05-30] MEDS: SENOKOT S TAB PO SCH (20:13)
[2022-05-31 06:56] VITALS: BP 125/82
[2022-05-31] MEDS: ENOXAPARIN 40MG/0.4ML SYRINGE (J1650 PER 10MG) SC SCH (08:45)
[2022-05-31] MEDS: ATORVASTATIN 20 MG TAB PO SCH (08:47)
[2022-05-31] MEDS: NICOTINE 14 MG/24 HR TRANSDERMAL TD SCH (08:47)
[2022-05-31] MEDS: ASPIRIN 81MG ENTERIC TABLET PO SCH (08:47)
[2022-05-31] MEDS: SPIRONOLACTONE 25 MG TAB PO SCH (08:47)
[2022-05-31] MEDS: OMEPRAZOLE 20MG CAP PO SCH (08:47)
[2022-05-31] MEDS: LACTULOSE 20 GM/30 ML SYRUP UD PO SCH ×2 (08:47→20:48)
[2022-05-31] MEDS: allopurinoL 100 MG TAB PO SCH (08:48)
[2022-05-31] MEDS: SERTRALINE HCL 25 MG TABLET PO SCH (08:49)
[2022-05-31] MEDS: SENOKOT S TAB PO SCH (20:47)
[2022-05-31] MEDS: RAMELTEON 8 MG TAB (ROZEREM) PO PRN (20:47)
[2022-05-31] MEDS: QUEtiapine FUMERATE XR 50MG TABER PO SCH (20:47)
[2022-06-01 05:39] VITALS: BP 119/77
[2022-06-01] MEDS: ENOXAPARIN 40MG/0.4ML SYRINGE (J1650 PER 10MG) SC SCH ×2 (09:00→09:11)
[2022-06-01] MEDS: OMEPRAZOLE 20MG CAP PO SCH (09:05)
[2022-06-01] MEDS: ASPIRIN 81MG ENTERIC TABLET PO SCH (09:05)
[2022-06-01] MEDS: allopurinoL 100 MG TAB PO SCH (09:07)
[2022-06-01] MEDS: SERTRALINE HCL 25 MG TABLET PO SCH (09:09)
[2022-06-01] MEDS: LACTULOSE 20 GM/30 ML SYRUP UD PO SCH ×2 (09:09→20:05)
[2022-06-01] MEDS: ATORVASTATIN 20 MG TAB PO SCH (09:09)
[2022-06-01] MEDS: SPIRONOLACTONE 25 MG TAB PO SCH (09:09)
[2022-06-01] MEDS: NICOTINE 14 MG/24 HR TRANSDERMAL TD SCH (09:10)
[2022-06-01] MEDS: SENOKOT S TAB PO SCH (20:05)
[2022-06-01] MEDS: QUEtiapine FUMERATE XR 50MG TABER PO SCH (20:05)
[2022-06-02 06:06] VITALS: BP 122/72
[2022-06-02] MEDS: ATORVASTATIN 20 MG TAB PO SCH (08:51)
[2022-06-02] MEDS: OMEPRAZOLE 20MG CAP PO SCH (08:51)
[2022-06-02] MEDS: SPIRONOLACTONE 25 MG TAB PO SCH (08:51)
[2022-06-02] MEDS: SERTRALINE HCL 25 MG TABLET PO SCH (08:51)
[2022-06-02] MEDS: allopurinoL 100 MG TAB PO SCH (08:51)
[2022-06-02] MEDS: ASPIRIN 81MG ENTERIC TABLET PO SCH (08:51)
[2022-06-02] MEDS: LACTULOSE 20 GM/30 ML SYRUP UD PO SCH ×2 (08:52→20:28)
[2022-06-02] MEDS: ENOXAPARIN 40MG/0.4ML SYRINGE (J1650 PER 10MG) SC SCH (08:53)
[2022-06-02] MEDS: NICOTINE 14 MG/24 HR TRANSDERMAL TD SCH (08:55)
[2022-06-02] MEDS: SENOKOT S TAB PO SCH (20:28)
[2022-06-02] MEDS: QUEtiapine FUMERATE XR 50MG TABER PO SCH (20:28)
[2022-06-03 06:14] VITALS: BP 128/87
[2022-06-03] MEDS: ENOXAPARIN 40MG/0.4ML SYRINGE (J1650 PER 10MG) SC SCH (09:00)
[2022-06-03] MEDS: NICOTINE 14 MG/24 HR TRANSDERMAL TD SCH (09:00)
[2022-06-03] MEDS: ASPIRIN 81MG ENTERIC TABLET PO SCH (09:19)
[2022-06-03] MEDS: OMEPRAZOLE 20MG CAP PO SCH (09:20)
[2022-06-03] MEDS: allopurinoL 100 MG TAB PO SCH (09:20)
[2022-06-03] MEDS: SPIRONOLACTONE 25 MG TAB PO SCH (09:20)
[2022-06-03] MEDS: ATORVASTATIN 20 MG TAB PO SCH (09:20)
[2022-06-03] MEDS: SERTRALINE HCL 25 MG TABLET PO SCH (09:20)
[2022-06-03] MEDS: LACTULOSE 20 GM/30 ML SYRUP UD PO SCH ×2 (09:22→21:13)
[2022-06-03] MEDS: QUEtiapine FUMERATE XR 50MG TABER PO SCH (21:13)
[2022-06-03] MEDS: SENOKOT S TAB PO SCH (21:13)
[2022-06-03] MEDS: RAMELTEON 8 MG TAB (ROZEREM) PO PRN (21:13)
[2022-06-04 06:00] VITALS: BP 119/62
[2022-06-04 06:47] LABS: BASO % 0.7 % (0.0-1.0); EOS # 0.6 10^3/uL (0.0-0.5); EOS % 9.5 % (0.0-3.0); HEMATOCRIT 42.6 % (42.0-52.0); HEMOGLOBIN 14.2 g/dl (13.5-17.5); LYMPH # 2.3 10^3/uL (1.5-5.0); LYMPH % 39.3 % (24.0-44.0); MEAN CORPUSCULAR HEMOGLOBIN 29.3 pg (27.0-33.0); MEAN CORPUSCULAR HGB CONC 33.3 g/dl (32.0-36.5); MONO # 0.6 10^3/uL (0.0-0.8); MONO % 9.5 % (2.0-8.0); NEUTROPHILS # 2.3 10^3/uL (1.5-8.5); NEUTROPHILS % 40.5 % (36.0-66.0); PLATELET COUNT, AUTOMATED 193 10^3/uL (150-450); RED BLOOD COUNT 4.84 10^6/uL (4.30-6.10); WHITE BLOOD COUNT 5.8 10^3/uL (4.0-10.0)
[2022-06-04 07:08] LABS: BLOOD UREA NITROGEN 8 MG/DL (7-18); CARBON DIOXIDE LEVEL 22 MEQ/L (21-32); CHLORIDE LEVEL 109 MEQ/L (98-107); CREATININE FOR GFR 0.85 MG/DL (0.70-1.30); GLOMERULAR FILTRATION RATE > 60.0 (>49); GLUCOSE, FASTING 100 MG/DL (70-100); POTASSIUM SERUM 4.3 MEQ/L (3.5-5.1); SODIUM LEVEL 139 MEQ/L (136-145)
[2022-06-04] MEDS: OMEPRAZOLE 20MG CAP PO SCH (08:58)
[2022-06-04] MEDS: SERTRALINE HCL 25 MG TABLET PO SCH (08:59)
[2022-06-04] MEDS: SPIRONOLACTONE 25 MG TAB PO SCH (08:59)
[2022-06-04] MEDS: allopurinoL 100 MG TAB PO SCH (08:59)
[2022-06-04] MEDS: NICOTINE 14 MG/24 HR TRANSDERMAL TD SCH (08:59)
[2022-06-04] MEDS: LACTULOSE 20 GM/30 ML SYRUP UD PO SCH ×2 (08:59→20:58)
[2022-06-04] MEDS: ATORVASTATIN 20 MG TAB PO SCH (08:59)
[2022-06-04] MEDS: ASPIRIN 81MG ENTERIC TABLET PO SCH (08:59)
[2022-06-04] MEDS: ENOXAPARIN 40MG/0.4ML SYRINGE (J1650 PER 10MG) SC SCH (09:00)
[2022-06-04] MEDS: SENOKOT S TAB PO SCH (20:57)
[2022-06-04] MEDS: QUEtiapine FUMERATE XR 50MG TABER PO SCH (20:57)
[2022-06-04] MEDS: RAMELTEON 8 MG TAB (ROZEREM) PO PRN (20:57)
[2022-06-05 05:47] VITALS: BP 117/61
[2022-06-05] MEDS: allopurinoL 100 MG TAB PO SCH (10:07)
[2022-06-05] MEDS: LACTULOSE 20 GM/30 ML SYRUP UD PO SCH ×2 (10:07→20:48)
[2022-06-05] MEDS: SPIRONOLACTONE 25 MG TAB PO SCH (10:08)
[2022-06-05] MEDS: NICOTINE 14 MG/24 HR TRANSDERMAL TD SCH (10:08)
[2022-06-05] MEDS: OMEPRAZOLE 20MG CAP PO SCH (10:08)
[2022-06-05] MEDS: ATORVASTATIN 20 MG TAB PO SCH (10:08)
[2022-06-05] MEDS: SERTRALINE HCL 25 MG TABLET PO SCH (10:08)
[2022-06-05] MEDS: ASPIRIN 81MG ENTERIC TABLET PO SCH (10:08)
[2022-06-05] MEDS: ENOXAPARIN 40MG/0.4ML SYRINGE (J1650 PER 10MG) SC SCH (10:09)
[2022-06-05] MEDS: QUEtiapine FUMERATE XR 50MG TABER PO SCH (20:48)
[2022-06-05] MEDS: SENOKOT S TAB PO SCH (20:48)
[2022-06-05] MEDS: RAMELTEON 8 MG TAB (ROZEREM) PO PRN (20:48)
[2022-06-06 05:44] VITALS: BP 148/85
[2022-06-06] MEDS: ASPIRIN 81MG ENTERIC TABLET PO SCH (07:28)
[2022-06-06] MEDS: SERTRALINE HCL 25 MG TABLET PO SCH (07:29)
[2022-06-06] MEDS: LACTULOSE 20 GM/30 ML SYRUP UD PO SCH ×2 (07:29→21:47)
[2022-06-06] MEDS: ATORVASTATIN 20 MG TAB PO SCH (07:29)
[2022-06-06] MEDS: allopurinoL 100 MG TAB PO SCH (07:29)
[2022-06-06] MEDS: SPIRONOLACTONE 25 MG TAB PO SCH (07:29)
[2022-06-06] MEDS: OMEPRAZOLE 20MG CAP PO SCH (07:29)
[2022-06-06] MEDS: ENOXAPARIN 40MG/0.4ML SYRINGE (J1650 PER 10MG) SC SCH (07:31)
[2022-06-06] MEDS: NICOTINE 14 MG/24 HR TRANSDERMAL TD SCH (07:32)
[2022-06-06] MEDS: SENOKOT S TAB PO SCH (21:47)
[2022-06-06] MEDS: QUEtiapine FUMERATE XR 50MG TABER PO SCH (21:47)
[2022-06-07 05:35] VITALS: BP 144/92
[2022-06-07] MEDS: NICOTINE 14 MG/24 HR TRANSDERMAL TD SCH (08:14)
[2022-06-07] MEDS: OMEPRAZOLE 20MG CAP PO SCH (08:14)
[2022-06-07] MEDS: SPIRONOLACTONE 25 MG TAB PO SCH (08:14)
[2022-06-07] MEDS: allopurinoL 100 MG TAB PO SCH (08:14)
[2022-06-07] MEDS: ATORVASTATIN 20 MG TAB PO SCH (08:14)
[2022-06-07] MEDS: SERTRALINE HCL 25 MG TABLET PO SCH (08:14)
[2022-06-07] MEDS: ASPIRIN 81MG ENTERIC TABLET PO SCH (08:14)
[2022-06-07] MEDS: ENOXAPARIN 40MG/0.4ML SYRINGE (J1650 PER 10MG) SC SCH (08:15)
[2022-06-07] MEDS: LACTULOSE 20 GM/30 ML SYRUP UD PO SCH ×2 (08:15→19:30)
[2022-06-07] MEDS: OLANZapine INTRAMUSCULAR 10MG VIAL IM PRN (16:29)
[2022-06-07] MEDS: SENOKOT S TAB PO SCH ×2 (19:31→20:47)
[2022-06-07] MEDS: RAMELTEON 8 MG TAB (ROZEREM) PO PRN (19:31)
[2022-06-07] MEDS: QUEtiapine FUMERATE XR 50MG TABER PO SCH (19:31)
[2022-06-08 06:30] VITALS: BP 124/66
[2022-06-08] MEDS: LACTULOSE 20 GM/30 ML SYRUP UD PO SCH ×2 (08:43→19:55)
[2022-06-08] MEDS: SERTRALINE HCL 25 MG TABLET PO SCH (08:44)
[2022-06-08] MEDS: ENOXAPARIN 40MG/0.4ML SYRINGE (J1650 PER 10MG) SC SCH (08:44)
[2022-06-08] MEDS: ASPIRIN 81MG ENTERIC TABLET PO SCH (08:44)
[2022-06-08] MEDS: ATORVASTATIN 20 MG TAB PO SCH (08:44)
[2022-06-08] MEDS: allopurinoL 100 MG TAB PO SCH (08:44)
[2022-06-08] MEDS: OMEPRAZOLE 20MG CAP PO SCH (08:44)
[2022-06-08] MEDS: NICOTINE 14 MG/24 HR TRANSDERMAL TD SCH (08:45)
[2022-06-08] MEDS: SPIRONOLACTONE 25 MG TAB PO SCH (08:45)
[2022-06-08] MEDS: OLANZapine INTRAMUSCULAR 10MG VIAL IM PRN (17:45)
[2022-06-08] MEDS: SENOKOT S TAB PO SCH (19:54)
[2022-06-08] MEDS: QUEtiapine FUMERATE XR 50MG TABER PO SCH (19:54)
[2022-06-08] MEDS: RAMELTEON 8 MG TAB (ROZEREM) PO PRN (19:54)
[2022-06-09] MEDS: LACTULOSE 20 GM/30 ML SYRUP UD PO SCH ×2 (08:11→22:18)
[2022-06-09] MEDS: ATORVASTATIN 20 MG TAB PO SCH (08:11)
[2022-06-09] MEDS: OMEPRAZOLE 20MG CAP PO SCH (08:11)
[2022-06-09] MEDS: ENOXAPARIN 40MG/0.4ML SYRINGE (J1650 PER 10MG) SC SCH (08:11)
[2022-06-09] MEDS: SPIRONOLACTONE 25 MG TAB PO SCH (08:11)
[2022-06-09] MEDS: SERTRALINE HCL 25 MG TABLET PO SCH (08:11)
[2022-06-09] MEDS: allopurinoL 100 MG TAB PO SCH (08:11)
[2022-06-09] MEDS: ASPIRIN 81MG ENTERIC TABLET PO SCH (08:11)
[2022-06-09] MEDS: NICOTINE 14 MG/24 HR TRANSDERMAL TD SCH (08:18)
[2022-06-09] MEDS ORDERED: HALOPERIDOL 5MG/ML VIAL (J1630 PER 1) As Ordered ONE (09:07)
[2022-06-09] MEDS ORDERED: HALOPERIDOL 5MG/ML VIAL (J1630 PER 1) IM ONE ×2 (10:00→13:00)
[2022-06-09] MEDS ORDERED: diphenhydrAMINE 50MG/ML VIAL (J1200) IM STA (12:32)
[2022-06-09] MEDS ORDERED: LORazepam 2 MG/ML VIAL IM STA (12:32)
[2022-06-09] MEDS ORDERED: OLANZapine INTRAMUSCULAR 10MG VIAL IM ONE (12:35)
[2022-06-09] MEDS ORDERED: LORazepam 2 MG TAB PO PRN (12:35)
[2022-06-09] MEDS ORDERED: diphenhydrAMINE 50MG CAP PO PRN (12:35)
[2022-06-09] MEDS: QUEtiapine FUMERATE XR 50MG TABER PO SCH (17:49)
[2022-06-09] MEDS: SENOKOT S TAB PO SCH (22:18)
[2022-06-10 06:00] VITALS: BP 129/72
[2022-06-10] MEDS: allopurinoL 100 MG TAB PO SCH (09:00)
[2022-06-10] MEDS: ASPIRIN 81MG ENTERIC TABLET PO SCH (10:13)
[2022-06-10] MEDS: OMEPRAZOLE 20MG CAP PO SCH (10:13)
[2022-06-10] MEDS: NICOTINE 14 MG/24 HR TRANSDERMAL TD SCH (10:13)
[2022-06-10] MEDS: LACTULOSE 20 GM/30 ML SYRUP UD PO SCH ×2 (10:13→20:20)
[2022-06-10] MEDS: ENOXAPARIN 40MG/0.4ML SYRINGE (J1650 PER 10MG) SC SCH (10:13)
[2022-06-10] MEDS: ATORVASTATIN 20 MG TAB PO SCH (10:13)
[2022-06-10] MEDS: SPIRONOLACTONE 25 MG TAB PO SCH (10:14)
[2022-06-10] MEDS: SERTRALINE HCL 25 MG TABLET PO SCH (10:14)
[2022-06-10] MEDS: QUEtiapine FUMERATE XR 50MG TABER PO SCH (20:20)
[2022-06-10] MEDS: SENOKOT S TAB PO SCH (20:20)
[2022-06-11] MEDS: NICOTINE 14 MG/24 HR TRANSDERMAL TD SCH (09:49)
[2022-06-11] MEDS: LACTULOSE 20 GM/30 ML SYRUP UD PO SCH ×2 (09:50→20:06)
[2022-06-11] MEDS: SPIRONOLACTONE 25 MG TAB PO SCH (09:51)
[2022-06-11] MEDS: ASPIRIN 81MG ENTERIC TABLET PO SCH (09:51)
[2022-06-11] MEDS: allopurinoL 100 MG TAB PO SCH (09:51)
[2022-06-11] MEDS: ATORVASTATIN 20 MG TAB PO SCH (09:51)
[2022-06-11] MEDS: OMEPRAZOLE 20MG CAP PO SCH (09:51)
[2022-06-11] MEDS: ENOXAPARIN 40MG/0.4ML SYRINGE (J1650 PER 10MG) SC SCH (09:51)
[2022-06-11] MEDS: SERTRALINE HCL 25 MG TABLET PO SCH (09:52)
[2022-06-11] MEDS: QUEtiapine FUMERATE XR 50MG TABER PO SCH (20:05)
[2022-06-11] MEDS: SENOKOT S TAB PO SCH (20:05)
[2022-06-12 06:00] VITALS: BP 135/68
[2022-06-12] MEDS: ASPIRIN 81MG ENTERIC TABLET PO SCH (12:52)
[2022-06-12] MEDS: allopurinoL 100 MG TAB PO SCH (12:52)
[2022-06-12] MEDS: SERTRALINE HCL 25 MG TABLET PO SCH (12:53)
[2022-06-12] MEDS: SPIRONOLACTONE 25 MG TAB PO SCH (12:53)
[2022-06-12] MEDS: LACTULOSE 20 GM/30 ML SYRUP UD PO SCH ×2 (12:53→23:13)
[2022-06-12] MEDS: OMEPRAZOLE 20MG CAP PO SCH (12:53)
[2022-06-12] MEDS: ATORVASTATIN 20 MG TAB PO SCH (12:53)
[2022-06-12] MEDS: ENOXAPARIN 40MG/0.4ML SYRINGE (J1650 PER 10MG) SC SCH (12:54)
[2022-06-12] MEDS: NICOTINE 14 MG/24 HR TRANSDERMAL TD SCH (12:54)
[2022-06-12] MEDS: SENOKOT S TAB PO SCH (23:13)
[2022-06-12] MEDS: QUEtiapine FUMERATE XR 50MG TABER PO SCH (23:13)
[2022-06-13 06:00] VITALS: BP 131/67
[2022-06-13] MEDS: ASPIRIN 81MG ENTERIC TABLET PO SCH (08:44)
[2022-06-13] MEDS: SPIRONOLACTONE 25 MG TAB PO SCH (08:45)
[2022-06-13] MEDS: NICOTINE 14 MG/24 HR TRANSDERMAL TD SCH (08:45)
[2022-06-13] MEDS: allopurinoL 100 MG TAB PO SCH (08:45)
[2022-06-13] MEDS: LACTULOSE 20 GM/30 ML SYRUP UD PO SCH ×2 (08:45→21:03)
[2022-06-13] MEDS: OMEPRAZOLE 20MG CAP PO SCH (08:45)
[2022-06-13] MEDS: ATORVASTATIN 20 MG TAB PO SCH (08:45)
[2022-06-13] MEDS: SERTRALINE HCL 25 MG TABLET PO SCH (08:45)
[2022-06-13] MEDS: ENOXAPARIN 40MG/0.4ML SYRINGE (J1650 PER 10MG) SC SCH (09:14)
[2022-06-13] MEDS: SENOKOT S TAB PO SCH (21:03)
[2022-06-13] MEDS: QUEtiapine FUMERATE XR 50MG TABER PO SCH (21:03)
[2022-06-14 06:00] VITALS: BP 128/67
[2022-06-14] MEDS: OMEPRAZOLE 20MG CAP PO SCH (08:23)
[2022-06-14] MEDS: NICOTINE 14 MG/24 HR TRANSDERMAL TD SCH (08:23)
[2022-06-14] MEDS: ASPIRIN 81MG ENTERIC TABLET PO SCH (08:23)
[2022-06-14] MEDS: SPIRONOLACTONE 25 MG TAB PO SCH (08:23)
[2022-06-14] MEDS: SERTRALINE HCL 25 MG TABLET PO SCH (08:23)
[2022-06-14] MEDS: ATORVASTATIN 20 MG TAB PO SCH (08:23)
[2022-06-14] MEDS: allopurinoL 100 MG TAB PO SCH (08:23)
[2022-06-14] MEDS: LACTULOSE 20 GM/30 ML SYRUP UD PO SCH ×2 (08:24→20:17)
[2022-06-14] MEDS: ENOXAPARIN 40MG/0.4ML SYRINGE (J1650 PER 10MG) SC SCH (08:24)
[2022-06-14] MEDS: QUEtiapine FUMERATE XR 50MG TABER PO SCH (20:16)
[2022-06-14] MEDS: SENOKOT S TAB PO SCH (20:16)
[2022-06-14] MEDS: RAMELTEON 8 MG TAB (ROZEREM) PO PRN (22:04)
[2022-06-15 06:55] VITALS: BP 124/76
[2022-06-15] MEDS: ENOXAPARIN 40MG/0.4ML SYRINGE (J1650 PER 10MG) SC SCH (11:00)
[2022-06-15] MEDS: allopurinoL 100 MG TAB PO SCH (11:01)
[2022-06-15] MEDS: NICOTINE 14 MG/24 HR TRANSDERMAL TD SCH (11:01)
[2022-06-15] MEDS: ASPIRIN 81MG ENTERIC TABLET PO SCH (11:01)
[2022-06-15] MEDS: OMEPRAZOLE 20MG CAP PO SCH (11:01)
[2022-06-15] MEDS: ATORVASTATIN 20 MG TAB PO SCH (11:01)
[2022-06-15] MEDS: SPIRONOLACTONE 25 MG TAB PO SCH (11:02)
[2022-06-15] MEDS: SERTRALINE HCL 25 MG TABLET PO SCH (11:02)
[2022-06-15] MEDS: SENOKOT S TAB PO SCH (22:16)
[2022-06-15] MEDS: QUEtiapine FUMERATE XR 50MG TABER PO SCH (22:16)
[2022-06-16 06:00] VITALS: BP_SYST 126; BP_SYST 138; BP_DIAS 86; BP_DIAS 87
[2022-06-16] MEDS: allopurinoL 100 MG TAB PO SCH (08:15)
[2022-06-16] MEDS: ASPIRIN 81MG ENTERIC TABLET PO SCH (08:15)
[2022-06-16] MEDS: ATORVASTATIN 20 MG TAB PO SCH (08:15)
[2022-06-16] MEDS: SERTRALINE HCL 25 MG TABLET PO SCH (08:15)
[2022-06-16] MEDS: NICOTINE 14 MG/24 HR TRANSDERMAL TD SCH (08:16)
[2022-06-16] MEDS: ENOXAPARIN 40MG/0.4ML SYRINGE (J1650 PER 10MG) SC SCH (08:16)
[2022-06-16] MEDS: OMEPRAZOLE 20MG CAP PO SCH (08:16)
[2022-06-16] MEDS: SPIRONOLACTONE 25 MG TAB PO SCH (08:31)
[2022-06-16] MEDS: QUEtiapine FUMERATE XR 50MG TABER PO SCH (22:23)
[2022-06-16] MEDS: SENOKOT S TAB PO SCH (22:23)
[2022-06-17 06:00] VITALS: BP 147/95
[2022-06-17] MEDS: ENOXAPARIN 40MG/0.4ML SYRINGE (J1650 PER 10MG) SC SCH (09:53)
[2022-06-17] MEDS: NICOTINE 14 MG/24 HR TRANSDERMAL TD SCH (09:54)
[2022-06-17] MEDS: SPIRONOLACTONE 25 MG TAB PO SCH (09:54)
[2022-06-17] MEDS: SERTRALINE HCL 25 MG TABLET PO SCH (09:55)
[2022-06-17] MEDS: OMEPRAZOLE 20MG CAP PO SCH (09:55)
[2022-06-17] MEDS: ASPIRIN 81MG ENTERIC TABLET PO SCH (09:55)
[2022-06-17] MEDS: allopurinoL 100 MG TAB PO SCH (09:55)
[2022-06-17] MEDS: ATORVASTATIN 20 MG TAB PO SCH (09:57)
[2022-06-17] MEDS: QUEtiapine FUMERATE XR 50MG TABER PO SCH (22:06)
[2022-06-17] MEDS: SENOKOT S TAB PO SCH (22:06)
[2022-06-18 06:30] VITALS: BP 136/75
[2022-06-18] MEDS: ASPIRIN 81MG ENTERIC TABLET PO SCH (08:57)
[2022-06-18] MEDS: SERTRALINE HCL 25 MG TABLET PO SCH (08:57)
[2022-06-18] MEDS: ATORVASTATIN 20 MG TAB PO SCH (08:57)
[2022-06-18] MEDS: allopurinoL 100 MG TAB PO SCH (08:57)
[2022-06-18] MEDS: SPIRONOLACTONE 25 MG TAB PO SCH (08:57)
[2022-06-18] MEDS: ENOXAPARIN 40MG/0.4ML SYRINGE (J1650 PER 10MG) SC SCH (08:58)
[2022-06-18] MEDS: NICOTINE 14 MG/24 HR TRANSDERMAL TD SCH (08:58)
[2022-06-18] MEDS: OMEPRAZOLE 20MG CAP PO SCH (08:58)
[2022-06-18] MEDS: SENOKOT S TAB PO SCH (19:20)
[2022-06-18] MEDS: QUEtiapine FUMERATE XR 50MG TABER PO SCH (19:20)
[2022-06-18] MEDS: RAMELTEON 8 MG TAB (ROZEREM) PO PRN (19:20)
[2022-06-19 06:00] VITALS: BP 122/76
[2022-06-19] MEDS: OMEPRAZOLE 20MG CAP PO SCH (07:55)
[2022-06-19] MEDS: ASPIRIN 81MG ENTERIC TABLET PO SCH (07:55)
[2022-06-19] MEDS: SERTRALINE HCL 25 MG TABLET PO SCH (07:55)
[2022-06-19] MEDS: ATORVASTATIN 20 MG TAB PO SCH (07:55)
[2022-06-19] MEDS: NICOTINE 14 MG/24 HR TRANSDERMAL TD SCH (07:56)
[2022-06-19] MEDS: SPIRONOLACTONE 25 MG TAB PO SCH (07:56)
[2022-06-19] MEDS: ENOXAPARIN 40MG/0.4ML SYRINGE (J1650 PER 10MG) SC SCH (07:56)
[2022-06-19] MEDS: allopurinoL 100 MG TAB PO SCH (07:56)
[2022-06-19 19:44] LABS: BASO % 0.3 % (0.0-1.0); EOS # 0.6 10^3/uL (0.0-0.5); EOS % 9.4 % (0.0-3.0); HEMATOCRIT 43.4 % (42.0-52.0); HEMOGLOBIN 14.2 g/dl (13.5-17.5); LYMPH # 2.2 10^3/uL (1.5-5.0); LYMPH % 33.9 % (24.0-44.0); MEAN CORPUSCULAR HEMOGLOBIN 29.5 pg (27.0-33.0); MEAN CORPUSCULAR HGB CONC 32.7 g/dl (32.0-36.5); MEAN CORPUSCULAR VOLUME 90.2 fl (80.0-96.0); MONO # 0.6 10^3/uL (0.0-0.8); MONO % 8.4 % (2.0-8.0); NEUTROPHILS # 3.1 10^3/uL (1.5-8.5); NEUTROPHILS % 47.5 % (36.0-66.0); PLATELET COUNT, AUTOMATED 223 10^3/uL (150-450); RED BLOOD COUNT 4.81 10^6/uL (4.30-6.10); WHITE BLOOD COUNT 6.6 10^3/uL (4.0-10.0)
[2022-06-19 20:17] LABS: ALBUMIN 3.6 GM/DL (3.2-5.2); ALT/SGPT 25 U/L (12-78); BILIRUBIN,TOTAL 0.3 MG/DL (0.2-1.0); BLOOD UREA NITROGEN 9 MG/DL (7-18); CALCIUM LEVEL 9.4 MG/DL (8.8-10.2); CARBON DIOXIDE LEVEL 27 MEQ/L (21-32); CHLORIDE LEVEL 107 MEQ/L (98-107); GLOMERULAR FILTRATION RATE > 60.0 (>49); GLUCOSE, FASTING 95 MG/DL (70-100); POTASSIUM SERUM 4.2 MEQ/L (3.5-5.1); SODIUM LEVEL 138 MEQ/L (136-145); TOTAL PROTEIN 7.5 GM/DL (6.4-8.2)
[2022-06-19] MEDS: SENOKOT S TAB PO SCH (20:17)
[2022-06-19] MEDS: QUEtiapine FUMERATE XR 50MG TABER PO SCH (20:17)
[2022-06-19] MEDS: RAMELTEON 8 MG TAB (ROZEREM) PO PRN (20:17)
[2022-06-20 04:53] VITALS: BP 138/67
[2022-06-20] MEDS: NICOTINE 14 MG/24 HR TRANSDERMAL TD SCH (09:45)
[2022-06-20] MEDS: OMEPRAZOLE 20MG CAP PO SCH (09:45)
[2022-06-20] MEDS: ATORVASTATIN 20 MG TAB PO SCH (09:45)
[2022-06-20] MEDS: SERTRALINE HCL 25 MG TABLET PO SCH (09:45)
[2022-06-20] MEDS: ASPIRIN 81MG ENTERIC TABLET PO SCH (09:45)
[2022-06-20] MEDS: SPIRONOLACTONE 25 MG TAB PO SCH (09:45)
[2022-06-20] MEDS: allopurinoL 100 MG TAB PO SCH (09:45)
[2022-06-20] MEDS: ENOXAPARIN 40MG/0.4ML SYRINGE (J1650 PER 10MG) SC SCH (09:45)
[2022-06-20] MEDS: QUEtiapine FUMERATE XR 50MG TABER PO SCH (21:48)
[2022-06-20] MEDS: SENOKOT S TAB PO SCH (21:49)
[2022-06-21 06:00] VITALS: BP 125/66
[2022-06-21] MEDS: NICOTINE 14 MG/24 HR TRANSDERMAL TD SCH (09:17)
[2022-06-21] MEDS: SPIRONOLACTONE 25 MG TAB PO SCH (09:17)
[2022-06-21] MEDS: ASPIRIN 81MG ENTERIC TABLET PO SCH (09:17)
[2022-06-21] MEDS: allopurinoL 100 MG TAB PO SCH (09:17)
[2022-06-21] MEDS: OMEPRAZOLE 20MG CAP PO SCH (09:17)
[2022-06-21] MEDS: SERTRALINE HCL 25 MG TABLET PO SCH (09:17)
[2022-06-21] MEDS: ENOXAPARIN 40MG/0.4ML SYRINGE (J1650 PER 10MG) SC SCH (09:17)
[2022-06-21] MEDS: ATORVASTATIN 20 MG TAB PO SCH (09:17)
[2022-06-21] MEDS: RAMELTEON 8 MG TAB (ROZEREM) PO PRN (19:33)
[2022-06-21] MEDS: QUEtiapine FUMERATE XR 50MG TABER PO SCH (19:34)
[2022-06-21] MEDS: SENOKOT S TAB PO SCH (19:34)
[2022-06-22 06:00] VITALS: BP 122/66
[2022-06-22] MEDS: NICOTINE 14 MG/24 HR TRANSDERMAL TD SCH (08:19)
[2022-06-22] MEDS: ENOXAPARIN 40MG/0.4ML SYRINGE (J1650 PER 10MG) SC SCH (08:19)
[2022-06-22] MEDS: allopurinoL 100 MG TAB PO SCH (08:20)
[2022-06-22] MEDS: ASPIRIN 81MG ENTERIC TABLET PO SCH (08:20)
[2022-06-22] MEDS: SPIRONOLACTONE 25 MG TAB PO SCH (08:20)
[2022-06-22] MEDS: SERTRALINE HCL 25 MG TABLET PO SCH (08:20)
[2022-06-22] MEDS: OMEPRAZOLE 20MG CAP PO SCH (08:20)
[2022-06-22] MEDS: ATORVASTATIN 20 MG TAB PO SCH (08:20)
[2022-06-22] MEDS: QUEtiapine FUMERATE XR 50MG TABER PO SCH (21:28)
[2022-06-22] MEDS: SENOKOT S TAB PO SCH (21:28)
[2022-06-23 06:00] VITALS: BP 130/72
[2022-06-23] MEDS: ASPIRIN 81MG ENTERIC TABLET PO SCH (08:20)
[2022-06-23] MEDS: OMEPRAZOLE 20MG CAP PO SCH (08:20)
[2022-06-23] MEDS: allopurinoL 100 MG TAB PO SCH (08:20)
[2022-06-23] MEDS: SPIRONOLACTONE 25 MG TAB PO SCH (08:20)
[2022-06-23] MEDS: ENOXAPARIN 40MG/0.4ML SYRINGE (J1650 PER 10MG) SC SCH (08:20)
[2022-06-23] MEDS: NICOTINE 14 MG/24 HR TRANSDERMAL TD SCH (08:20)
[2022-06-23] MEDS: SERTRALINE HCL 25 MG TABLET PO SCH (08:21)
[2022-06-23] MEDS: ATORVASTATIN 20 MG TAB PO SCH (08:21)
[2022-06-23] MEDS: SENOKOT S TAB PO SCH (20:53)
[2022-06-23] MEDS: QUEtiapine FUMERATE XR 50MG TABER PO SCH (20:53)
[2022-06-24 06:15] VITALS: BP 125/75
[2022-06-24] MEDS: ATORVASTATIN 20 MG TAB PO SCH (08:09)
[2022-06-24] MEDS: SERTRALINE HCL 25 MG TABLET PO SCH (08:09)
[2022-06-24] MEDS: OMEPRAZOLE 20MG CAP PO SCH (08:09)
[2022-06-24] MEDS: ASPIRIN 81MG ENTERIC TABLET PO SCH (08:09)
[2022-06-24] MEDS: allopurinoL 100 MG TAB PO SCH (08:09)
[2022-06-24] MEDS: SPIRONOLACTONE 25 MG TAB PO SCH (08:09)
[2022-06-24] MEDS: NICOTINE 14 MG/24 HR TRANSDERMAL TD SCH ×2 (08:10→08:16)
[2022-06-24] MEDS: ENOXAPARIN 40MG/0.4ML SYRINGE (J1650 PER 10MG) SC SCH (08:10)
[2022-06-24] MEDS: SENOKOT S TAB PO SCH (20:05)
[2022-06-24] MEDS: QUEtiapine FUMERATE XR 50MG TABER PO SCH (20:05)
[2022-06-24] MEDS: RAMELTEON 8 MG TAB (ROZEREM) PO PRN (20:05)
[2022-06-25] MEDS: ATORVASTATIN 20 MG TAB PO SCH (09:36)
[2022-06-25] MEDS: SPIRONOLACTONE 25 MG TAB PO SCH (09:36)
[2022-06-25] MEDS: OMEPRAZOLE 20MG CAP PO SCH (09:36)
[2022-06-25] MEDS: ASPIRIN 81MG ENTERIC TABLET PO SCH (09:36)
[2022-06-25] MEDS: SERTRALINE HCL 25 MG TABLET PO SCH (09:36)
[2022-06-25] MEDS: allopurinoL 100 MG TAB PO SCH (09:36)
[2022-06-25] MEDS: ENOXAPARIN 40MG/0.4ML SYRINGE (J1650 PER 10MG) SC SCH (09:37)
[2022-06-25] MEDS: NICOTINE 14 MG/24 HR TRANSDERMAL TD SCH (09:40)
[2022-06-25 18:05] VITALS: BP 163/95
[2022-06-25] MEDS: QUEtiapine FUMERATE XR 50MG TABER PO SCH (19:56)
[2022-06-25] MEDS: RAMELTEON 8 MG TAB (ROZEREM) PO PRN (19:56)
[2022-06-25] MEDS: SENOKOT S TAB PO SCH (19:56)
[2022-06-26 06:00] VITALS: BP_SYST 139; BP_SYST 147; BP_DIAS 108; BP_DIAS 76
[2022-06-26] MEDS: NICOTINE 14 MG/24 HR TRANSDERMAL TD SCH ×2 (08:51→08:56)
[2022-06-26] MEDS: ENOXAPARIN 40MG/0.4ML SYRINGE (J1650 PER 10MG) SC SCH ×2 (08:51→08:56)
[2022-06-26] MEDS: ASPIRIN 81MG ENTERIC TABLET PO SCH (08:51)
[2022-06-26] MEDS: OMEPRAZOLE 20MG CAP PO SCH (08:51)
[2022-06-26] MEDS: SPIRONOLACTONE 25 MG TAB PO SCH (08:51)
[2022-06-26] MEDS: ATORVASTATIN 20 MG TAB PO SCH (08:52)
[2022-06-26] MEDS: SERTRALINE HCL 25 MG TABLET PO SCH (08:52)
[2022-06-26] MEDS: allopurinoL 100 MG TAB PO SCH (08:52)
[2022-06-26] MEDS: SENOKOT S TAB PO SCH (20:03)
[2022-06-26] MEDS: QUEtiapine FUMERATE XR 50MG TABER PO SCH (20:03)
[2022-06-26] MEDS: RAMELTEON 8 MG TAB (ROZEREM) PO PRN (20:04)
[2022-06-27 05:36] VITALS: BP 117/64
[2022-06-27] MEDS: ENOXAPARIN 40MG/0.4ML SYRINGE (J1650 PER 10MG) SC SCH (09:00)
[2022-06-27] MEDS: NICOTINE 14 MG/24 HR TRANSDERMAL TD SCH (09:00)
[2022-06-27] MEDS: ATORVASTATIN 20 MG TAB PO SCH (09:42)
[2022-06-27] MEDS: SPIRONOLACTONE 25 MG TAB PO SCH (09:42)
[2022-06-27] MEDS: ASPIRIN 81MG ENTERIC TABLET PO SCH (09:42)
[2022-06-27] MEDS: SERTRALINE HCL 25 MG TABLET PO SCH (09:42)
[2022-06-27] MEDS: allopurinoL 100 MG TAB PO SCH (09:42)
[2022-06-27] MEDS: OMEPRAZOLE 20MG CAP PO SCH (09:42)
[2022-06-27] MEDS: SENOKOT S TAB PO SCH (20:12)
[2022-06-27] MEDS: RAMELTEON 8 MG TAB (ROZEREM) PO PRN (20:12)
[2022-06-27] MEDS: QUEtiapine FUMERATE XR 50MG TABER PO SCH (20:12)
[2022-06-28 05:40] VITALS: BP 121/69
[2022-06-28] MEDS: NICOTINE 14 MG/24 HR TRANSDERMAL TD SCH (08:42)
[2022-06-28] MEDS: OMEPRAZOLE 20MG CAP PO SCH (08:42)
[2022-06-28] MEDS: ASPIRIN 81MG ENTERIC TABLET PO SCH (08:42)
[2022-06-28] MEDS: ATORVASTATIN 20 MG TAB PO SCH (08:42)
[2022-06-28] MEDS: allopurinoL 100 MG TAB PO SCH (08:42)
[2022-06-28] MEDS: ENOXAPARIN 40MG/0.4ML SYRINGE (J1650 PER 10MG) SC SCH (08:42)
[2022-06-28] MEDS: SPIRONOLACTONE 25 MG TAB PO SCH (08:43)
[2022-06-28] MEDS: SERTRALINE HCL 25 MG TABLET PO SCH (08:43)
[2022-06-28] MEDS: QUEtiapine FUMERATE XR 50MG TABER PO SCH (21:31)
[2022-06-28] MEDS: SENOKOT S TAB PO SCH (21:31)
[2022-06-29 06:00] VITALS: BP 134/86
[2022-06-29] MEDS: ENOXAPARIN 40MG/0.4ML SYRINGE (J1650 PER 10MG) SC SCH (08:44)
[2022-06-29] MEDS: OMEPRAZOLE 20MG CAP PO SCH (08:45)
[2022-06-29] MEDS: SERTRALINE HCL 25 MG TABLET PO SCH (08:45)
[2022-06-29] MEDS: ASPIRIN 81MG ENTERIC TABLET PO SCH (08:45)
[2022-06-29] MEDS: ATORVASTATIN 20 MG TAB PO SCH (08:45)
[2022-06-29] MEDS: allopurinoL 100 MG TAB PO SCH (08:45)
[2022-06-29] MEDS: NICOTINE 14 MG/24 HR TRANSDERMAL TD SCH (08:46)
[2022-06-29] MEDS: SPIRONOLACTONE 25 MG TAB PO SCH (08:46)
[2022-06-29] MEDS: SENOKOT S TAB PO SCH (20:53)
[2022-06-29] MEDS: QUEtiapine FUMERATE XR 50MG TABER PO SCH (20:53)
[2022-06-30 06:00] VITALS: BP 136/72
[2022-06-30] MEDS: ASPIRIN 81MG ENTERIC TABLET PO SCH (08:45)
[2022-06-30] MEDS: ENOXAPARIN 40MG/0.4ML SYRINGE (J1650 PER 10MG) SC SCH (08:45)
[2022-06-30] MEDS: SERTRALINE HCL 25 MG TABLET PO SCH (08:45)
[2022-06-30] MEDS: allopurinoL 100 MG TAB PO SCH (08:45)
[2022-06-30] MEDS: NICOTINE 14 MG/24 HR TRANSDERMAL TD SCH (08:45)
[2022-06-30] MEDS: ATORVASTATIN 20 MG TAB PO SCH (08:45)
[2022-06-30] MEDS: SPIRONOLACTONE 25 MG TAB PO SCH (08:45)
[2022-06-30] MEDS: OMEPRAZOLE 20MG CAP PO SCH (08:45)
[2022-06-30] MEDS: QUEtiapine FUMERATE XR 50MG TABER PO SCH (20:18)
[2022-06-30] MEDS: RAMELTEON 8 MG TAB (ROZEREM) PO PRN (20:18)
[2022-06-30] MEDS: SENOKOT S TAB PO SCH (20:18)
[2022-07-01 06:00] VITALS: BP 122/71
[2022-07-01] MEDS: ATORVASTATIN 20 MG TAB PO SCH (09:23)
[2022-07-01] MEDS: NICOTINE 14 MG/24 HR TRANSDERMAL TD SCH (09:23)
[2022-07-01] MEDS: SPIRONOLACTONE 25 MG TAB PO SCH (09:23)
[2022-07-01] MEDS: ENOXAPARIN 40MG/0.4ML SYRINGE (J1650 PER 10MG) SC SCH (09:23)
[2022-07-01] MEDS: OMEPRAZOLE 20MG CAP PO SCH (09:23)
[2022-07-01] MEDS: SERTRALINE HCL 25 MG TABLET PO SCH (09:24)
[2022-07-01] MEDS: ASPIRIN 81MG ENTERIC TABLET PO SCH (09:24)
[2022-07-01] MEDS: allopurinoL 100 MG TAB PO SCH (09:24)
[2022-07-01] MEDS: RAMELTEON 8 MG TAB (ROZEREM) PO PRN (19:36)
[2022-07-01] MEDS: QUEtiapine FUMERATE XR 50MG TABER PO SCH (19:36)
[2022-07-01] MEDS: SENOKOT S TAB PO SCH (19:36)
[2022-07-02 05:30] VITALS: BP 146/82
[2022-07-02] MEDS: ATORVASTATIN 20 MG TAB PO SCH (09:04)
[2022-07-02] MEDS: SPIRONOLACTONE 25 MG TAB PO SCH (09:04)
[2022-07-02] MEDS: allopurinoL 100 MG TAB PO SCH (09:04)
[2022-07-02] MEDS: ASPIRIN 81MG ENTERIC TABLET PO SCH (09:04)
[2022-07-02] MEDS: NICOTINE 14 MG/24 HR TRANSDERMAL TD SCH (09:04)
[2022-07-02] MEDS: SERTRALINE HCL 25 MG TABLET PO SCH (09:04)
[2022-07-02] MEDS: OMEPRAZOLE 20MG CAP PO SCH (09:04)
[2022-07-02] MEDS: ENOXAPARIN 40MG/0.4ML SYRINGE (J1650 PER 10MG) SC SCH (09:05)
[2022-07-02] MEDS: SENOKOT S TAB PO SCH (19:31)
[2022-07-02] MEDS: RAMELTEON 8 MG TAB (ROZEREM) PO PRN (19:31)
[2022-07-02] MEDS: QUEtiapine FUMERATE XR 50MG TABER PO SCH (19:32)
[2022-07-03 06:00] VITALS: BP 108/57
[2022-07-03] MEDS: SPIRONOLACTONE 25 MG TAB PO SCH (10:09)
[2022-07-03] MEDS: SERTRALINE HCL 25 MG TABLET PO SCH (10:09)
[2022-07-03] MEDS: OMEPRAZOLE 20MG CAP PO SCH (10:09)
[2022-07-03] MEDS: ATORVASTATIN 20 MG TAB PO SCH (10:10)
[2022-07-03] MEDS: ASPIRIN 81MG ENTERIC TABLET PO SCH (10:10)
[2022-07-03] MEDS: allopurinoL 100 MG TAB PO SCH (10:10)
[2022-07-03] MEDS: NICOTINE 14 MG/24 HR TRANSDERMAL TD SCH (10:11)
[2022-07-03] MEDS: ENOXAPARIN 40MG/0.4ML SYRINGE (J1650 PER 10MG) SC SCH (10:11)
[2022-07-03] MEDS: SENOKOT S TAB PO SCH (20:45)
[2022-07-03] MEDS: QUEtiapine FUMERATE XR 50MG TABER PO SCH (20:45)
[2022-07-04 06:12] VITALS: BP 133/75
[2022-07-04] MEDS: ENOXAPARIN 40MG/0.4ML SYRINGE (J1650 PER 10MG) SC SCH (09:59)
[2022-07-04] MEDS: SPIRONOLACTONE 25 MG TAB PO SCH (10:00)
[2022-07-04] MEDS: NICOTINE 14 MG/24 HR TRANSDERMAL TD SCH (10:00)
[2022-07-04] MEDS: ASPIRIN 81MG ENTERIC TABLET PO SCH (10:00)
[2022-07-04] MEDS: OMEPRAZOLE 20MG CAP PO SCH (10:01)
[2022-07-04] MEDS: SERTRALINE HCL 25 MG TABLET PO SCH (10:01)
[2022-07-04] MEDS: allopurinoL 100 MG TAB PO SCH (10:01)
[2022-07-04] MEDS: ATORVASTATIN 20 MG TAB PO SCH (10:02)
[2022-07-04] MEDS: QUEtiapine FUMERATE XR 50MG TABER PO SCH (22:11)
[2022-07-04] MEDS: SENOKOT S TAB PO SCH (22:12)
[2022-07-05 06:00] VITALS: BP 132/77
[2022-07-05] MEDS: NICOTINE 14 MG/24 HR TRANSDERMAL TD SCH (09:00)
[2022-07-05] MEDS: allopurinoL 100 MG TAB PO SCH (09:23)
[2022-07-05] MEDS: SPIRONOLACTONE 25 MG TAB PO SCH (09:23)
[2022-07-05] MEDS: SERTRALINE HCL 25 MG TABLET PO SCH (09:23)
[2022-07-05] MEDS: ATORVASTATIN 20 MG TAB PO SCH (09:23)
[2022-07-05] MEDS: OMEPRAZOLE 20MG CAP PO SCH (09:23)
[2022-07-05] MEDS: ASPIRIN 81MG ENTERIC TABLET PO SCH (09:23)
[2022-07-05] MEDS: ENOXAPARIN 40MG/0.4ML SYRINGE (J1650 PER 10MG) SC SCH (09:24)
[2022-07-05] MEDS: RAMELTEON 8 MG TAB (ROZEREM) PO PRN (19:57)
[2022-07-05] MEDS: SENOKOT S TAB PO SCH (19:57)
[2022-07-05] MEDS: QUEtiapine FUMERATE XR 50MG TABER PO SCH (19:59)
[2022-07-06 05:59] VITALS: BP 111/68
[2022-07-06] MEDS: ASPIRIN 81MG ENTERIC TABLET PO SCH (10:19)
[2022-07-06] MEDS: allopurinoL 100 MG TAB PO SCH (10:19)
[2022-07-06] MEDS: SPIRONOLACTONE 25 MG TAB PO SCH (10:19)
[2022-07-06] MEDS: OMEPRAZOLE 20MG CAP PO SCH (10:20)
[2022-07-06] MEDS: ATORVASTATIN 20 MG TAB PO SCH (10:20)
[2022-07-06] MEDS: SERTRALINE HCL 25 MG TABLET PO SCH (10:20)
[2022-07-06] MEDS: NICOTINE 14 MG/24 HR TRANSDERMAL TD SCH (10:21)
[2022-07-06] MEDS: ENOXAPARIN 40MG/0.4ML SYRINGE (J1650 PER 10MG) SC SCH (10:21)
[2022-07-06] MEDS: RAMELTEON 8 MG TAB (ROZEREM) PO PRN (20:01)
[2022-07-06] MEDS: QUEtiapine FUMERATE XR 50MG TABER PO SCH (20:01)
[2022-07-06] MEDS: SENOKOT S TAB PO SCH (20:01)
[2022-07-07 05:35] VITALS: BP 130/73
[2022-07-07] MEDS: ENOXAPARIN 40MG/0.4ML SYRINGE (J1650 PER 10MG) SC SCH ×2 (09:00→11:25)
[2022-07-07] MEDS: NICOTINE 14 MG/24 HR TRANSDERMAL TD SCH (11:25)
[2022-07-07] MEDS: OMEPRAZOLE 20MG CAP PO SCH (11:25)
[2022-07-07] MEDS: SERTRALINE HCL 25 MG TABLET PO SCH (11:25)
[2022-07-07] MEDS: SPIRONOLACTONE 25 MG TAB PO SCH (11:26)
[2022-07-07] MEDS: ASPIRIN 81MG ENTERIC TABLET PO SCH (11:26)
[2022-07-07] MEDS: ATORVASTATIN 20 MG TAB PO SCH (11:26)
[2022-07-07] MEDS: allopurinoL 100 MG TAB PO SCH (11:26)
[2022-07-07] MEDS: RAMELTEON 8 MG TAB (ROZEREM) PO PRN (20:24)
[2022-07-07] MEDS: SENOKOT S TAB PO SCH (20:24)
[2022-07-07] MEDS: QUEtiapine FUMERATE XR 50MG TABER PO SCH (20:24)
[2022-07-08 05:35] VITALS: BP 127/72
[2022-07-08 09:39] VITALS: BP 122/74
[2022-07-08] MEDS: ASPIRIN 81MG ENTERIC TABLET PO SCH (09:41)
[2022-07-08] MEDS: SERTRALINE HCL 25 MG TABLET PO SCH (09:42)
[2022-07-08] MEDS: allopurinoL 100 MG TAB PO SCH (09:42)
[2022-07-08] MEDS: ATORVASTATIN 20 MG TAB PO SCH (09:42)
[2022-07-08] MEDS: ENOXAPARIN 40MG/0.4ML SYRINGE (J1650 PER 10MG) SC SCH (09:42)
[2022-07-08] MEDS: OMEPRAZOLE 20MG CAP PO SCH (09:42)
[2022-07-08] MEDS: NICOTINE 14 MG/24 HR TRANSDERMAL TD SCH (09:43)
[2022-07-08] MEDS: SPIRONOLACTONE 25 MG TAB PO SCH (09:43)
[2022-07-08] MEDS: RAMELTEON 8 MG TAB (ROZEREM) PO PRN (20:09)
[2022-07-08] MEDS: QUEtiapine FUMERATE XR 50MG TABER PO SCH (20:09)
[2022-07-08] MEDS: SENOKOT S TAB PO SCH (20:09)
[2022-07-09 06:00] VITALS: BP 124/68
[2022-07-09] MEDS: ENOXAPARIN 40MG/0.4ML SYRINGE (J1650 PER 10MG) SC SCH ×2 (09:00→09:38)
[2022-07-09] MEDS: allopurinoL 100 MG TAB PO SCH (09:38)
[2022-07-09] MEDS: SPIRONOLACTONE 25 MG TAB PO SCH (09:38)
[2022-07-09] MEDS: NICOTINE 14 MG/24 HR TRANSDERMAL TD SCH (09:38)
[2022-07-09] MEDS: SERTRALINE HCL 25 MG TABLET PO SCH (09:39)
[2022-07-09] MEDS: ATORVASTATIN 20 MG TAB PO SCH (09:39)
[2022-07-09] MEDS: ASPIRIN 81MG ENTERIC TABLET PO SCH (09:39)
[2022-07-09] MEDS: OMEPRAZOLE 20MG CAP PO SCH (09:39)
[2022-07-09] MEDS: QUEtiapine FUMERATE XR 50MG TABER PO SCH (20:06)
[2022-07-09] MEDS: SENOKOT S TAB PO SCH (20:06)
[2022-07-09] MEDS: RAMELTEON 8 MG TAB (ROZEREM) PO PRN (20:06)
[2022-07-10 06:00] VITALS: BP 125/59
[2022-07-10] MEDS: SERTRALINE HCL 25 MG TABLET PO SCH (08:08)
[2022-07-10] MEDS: ENOXAPARIN 40MG/0.4ML SYRINGE (J1650 PER 10MG) SC SCH (08:08)
[2022-07-10] MEDS: OMEPRAZOLE 20MG CAP PO SCH (08:08)
[2022-07-10] MEDS: allopurinoL 100 MG TAB PO SCH (08:08)
[2022-07-10] MEDS: ASPIRIN 81MG ENTERIC TABLET PO SCH (08:08)
[2022-07-10] MEDS: SPIRONOLACTONE 25 MG TAB PO SCH (08:09)
[2022-07-10] MEDS: ATORVASTATIN 20 MG TAB PO SCH (08:09)
[2022-07-10] MEDS: NICOTINE 14 MG/24 HR TRANSDERMAL TD SCH (08:09)
[2022-07-10] MEDS: QUEtiapine FUMERATE XR 50MG TABER PO SCH (20:22)
[2022-07-10] MEDS: SENOKOT S TAB PO SCH (20:22)
[2022-07-10] MEDS: RAMELTEON 8 MG TAB (ROZEREM) PO PRN (20:22)
[2022-07-11 06:00] VITALS: BP 132/71
[2022-07-11 06:17] VITALS: BP 132/71
[2022-07-11] MEDS: OMEPRAZOLE 20MG CAP PO SCH (09:36)
[2022-07-11] MEDS: allopurinoL 100 MG TAB PO SCH (09:36)
[2022-07-11] MEDS: NICOTINE 14 MG/24 HR TRANSDERMAL TD SCH (09:36)
[2022-07-11] MEDS: ASPIRIN 81MG ENTERIC TABLET PO SCH (09:36)
[2022-07-11] MEDS: ENOXAPARIN 40MG/0.4ML SYRINGE (J1650 PER 10MG) SC SCH (09:36)
[2022-07-11] MEDS: SERTRALINE HCL 25 MG TABLET PO SCH (09:36)
[2022-07-11] MEDS: ATORVASTATIN 20 MG TAB PO SCH (09:37)
[2022-07-11] MEDS: SPIRONOLACTONE 25 MG TAB PO SCH (09:45)
[2022-07-11] MEDS: SENOKOT S TAB PO SCH (20:20)
[2022-07-11] MEDS: QUEtiapine FUMERATE XR 50MG TABER PO SCH (20:20)
[2022-07-11] MEDS: RAMELTEON 8 MG TAB (ROZEREM) PO PRN (20:20)
[2022-07-12 06:00] VITALS: BP 132/75
[2022-07-12] MEDS: NICOTINE 14 MG/24 HR TRANSDERMAL TD SCH (09:16)
[2022-07-12] MEDS: ENOXAPARIN 40MG/0.4ML SYRINGE (J1650 PER 10MG) SC SCH (09:16)
[2022-07-12] MEDS: SERTRALINE HCL 25 MG TABLET PO SCH (09:17)
[2022-07-12] MEDS: ATORVASTATIN 20 MG TAB PO SCH (09:17)
[2022-07-12] MEDS: ASPIRIN 81MG ENTERIC TABLET PO SCH (09:17)
[2022-07-12] MEDS: SPIRONOLACTONE 25 MG TAB PO SCH (09:17)
[2022-07-12] MEDS: allopurinoL 100 MG TAB PO SCH (09:17)
[2022-07-12] MEDS: OMEPRAZOLE 20MG CAP PO SCH (09:17)
[2022-07-12] MEDS: RAMELTEON 8 MG TAB (ROZEREM) PO PRN (21:07)
[2022-07-12] MEDS: QUEtiapine FUMERATE XR 50MG TABER PO SCH (21:07)
[2022-07-12] MEDS: SENOKOT S TAB PO SCH (21:07)
[2022-07-13 06:00] VITALS: BP 128/72
[2022-07-13] MEDS: ATORVASTATIN 20 MG TAB PO SCH (08:20)
[2022-07-13] MEDS: SPIRONOLACTONE 25 MG TAB PO SCH (08:20)
[2022-07-13] MEDS: ASPIRIN 81MG ENTERIC TABLET PO SCH (08:21)
[2022-07-13] MEDS: SERTRALINE HCL 25 MG TABLET PO SCH (08:21)
[2022-07-13] MEDS: OMEPRAZOLE 20MG CAP PO SCH (08:21)
[2022-07-13] MEDS: allopurinoL 100 MG TAB PO SCH (08:22)
[2022-07-13] MEDS: ENOXAPARIN 40MG/0.4ML SYRINGE (J1650 PER 10MG) SC SCH (08:23)
[2022-07-13] MEDS: NICOTINE 14 MG/24 HR TRANSDERMAL TD SCH (08:26)
[2022-07-13] MEDS: SENOKOT S TAB PO SCH (21:34)
[2022-07-13] MEDS: QUEtiapine FUMERATE XR 50MG TABER PO SCH (21:34)
[2022-07-14 06:00] VITALS: BP 124/68
[2022-07-14] MEDS: ASPIRIN 81MG ENTERIC TABLET PO SCH (09:03)
[2022-07-14] MEDS: ATORVASTATIN 20 MG TAB PO SCH (09:04)
[2022-07-14] MEDS: SERTRALINE HCL 25 MG TABLET PO SCH (09:04)
[2022-07-14] MEDS: allopurinoL 100 MG TAB PO SCH (09:04)
[2022-07-14] MEDS: SPIRONOLACTONE 25 MG TAB PO SCH (09:04)
[2022-07-14] MEDS: OMEPRAZOLE 20MG CAP PO SCH (09:04)
[2022-07-14] MEDS: ENOXAPARIN 40MG/0.4ML SYRINGE (J1650 PER 10MG) SC SCH (09:05)
[2022-07-14] MEDS: NICOTINE 14 MG/24 HR TRANSDERMAL TD SCH (09:05)
[2022-07-14 19:40] VITALS: BP_SYST 0; BP_SYST 126; BP_DIAS 0; BP_DIAS 60
[2022-07-14] MEDS: SENOKOT S TAB PO SCH (20:16)
[2022-07-14] MEDS: QUEtiapine FUMERATE XR 50MG TABER PO SCH (20:16)
[2022-07-15 05:12] VITALS: BP 126/70
[2022-07-15] MEDS: SPIRONOLACTONE 25 MG TAB PO SCH (09:40)
[2022-07-15] MEDS: ASPIRIN 81MG ENTERIC TABLET PO SCH (09:41)
[2022-07-15] MEDS: ATORVASTATIN 20 MG TAB PO SCH (09:41)
[2022-07-15] MEDS: allopurinoL 100 MG TAB PO SCH (09:42)
[2022-07-15] MEDS: OMEPRAZOLE 20MG CAP PO SCH (09:42)
[2022-07-15] MEDS: SERTRALINE HCL 25 MG TABLET PO SCH (09:43)
[2022-07-15] MEDS: ENOXAPARIN 40MG/0.4ML SYRINGE (J1650 PER 10MG) SC SCH (09:44)
[2022-07-15] MEDS: NICOTINE 14 MG/24 HR TRANSDERMAL TD SCH (09:44)
[2022-07-15] MEDS: SENOKOT S TAB PO SCH (19:35)
[2022-07-15] MEDS: QUEtiapine FUMERATE XR 50MG TABER PO SCH (19:35)
[2022-07-16] MEDS: allopurinoL 100 MG TAB PO SCH (09:31)
[2022-07-16] MEDS: ASPIRIN 81MG ENTERIC TABLET PO SCH (09:31)
[2022-07-16] MEDS: NICOTINE 14 MG/24 HR TRANSDERMAL TD SCH (09:31)
[2022-07-16] MEDS: SERTRALINE HCL 25 MG TABLET PO SCH (09:31)
[2022-07-16] MEDS: OMEPRAZOLE 20MG CAP PO SCH (09:31)
[2022-07-16] MEDS: ENOXAPARIN 40MG/0.4ML SYRINGE (J1650 PER 10MG) SC SCH (09:32)
[2022-07-16] MEDS: ATORVASTATIN 20 MG TAB PO SCH (09:32)
[2022-07-16] MEDS: SPIRONOLACTONE 25 MG TAB PO SCH (09:32)
[2022-07-16 09:36] VITALS: BP 153/89
[2022-07-16 14:00] VITALS: BP 150/83
[2022-07-16] MEDS: SENOKOT S TAB PO SCH (19:34)
[2022-07-16] MEDS: QUEtiapine FUMERATE XR 50MG TABER PO SCH (19:34)
[2022-07-17 06:35] VITALS: BP 139/80
[2022-07-17] MEDS: ENOXAPARIN 40MG/0.4ML SYRINGE (J1650 PER 10MG) SC SCH (09:44)
[2022-07-17] MEDS: NICOTINE 14 MG/24 HR TRANSDERMAL TD SCH (09:44)
[2022-07-17] MEDS: allopurinoL 100 MG TAB PO SCH (09:45)
[2022-07-17] MEDS: ASPIRIN 81MG ENTERIC TABLET PO SCH (09:45)
[2022-07-17] MEDS: SERTRALINE HCL 25 MG TABLET PO SCH (09:45)
[2022-07-17] MEDS: SPIRONOLACTONE 25 MG TAB PO SCH (09:45)
[2022-07-17] MEDS: ATORVASTATIN 20 MG TAB PO SCH (09:45)
[2022-07-17] MEDS: OMEPRAZOLE 20MG CAP PO SCH (09:45)
[2022-07-17] MEDS: QUEtiapine FUMERATE XR 50MG TABER PO SCH (20:07)
[2022-07-17] MEDS: SENOKOT S TAB PO SCH (20:08)
[2022-07-18 06:18] VITALS: BP 119/67
[2022-07-18] MEDS: ASPIRIN 81MG ENTERIC TABLET PO SCH (09:20)
[2022-07-18] MEDS: ENOXAPARIN 40MG/0.4ML SYRINGE (J1650 PER 10MG) SC SCH (09:20)
[2022-07-18] MEDS: NICOTINE 14 MG/24 HR TRANSDERMAL TD SCH (09:22)
[2022-07-18] MEDS: SPIRONOLACTONE 25 MG TAB PO SCH (09:22)
[2022-07-18] MEDS: allopurinoL 100 MG TAB PO SCH (09:22)
[2022-07-18] MEDS: ATORVASTATIN 20 MG TAB PO SCH (09:23)
[2022-07-18] MEDS: OMEPRAZOLE 20MG CAP PO SCH (09:24)
[2022-07-18] MEDS: SERTRALINE HCL 25 MG TABLET PO SCH (09:24)
[2022-07-18] MEDS: SENOKOT S TAB PO SCH (21:00)
[2022-07-18] MEDS: QUEtiapine FUMERATE XR 50MG TABER PO SCH (21:19)
[2022-07-19 06:26] VITALS: BP 118/72
[2022-07-19] MEDS: SERTRALINE HCL 25 MG TABLET PO SCH (08:52)
[2022-07-19] MEDS: SPIRONOLACTONE 25 MG TAB PO SCH (08:52)
[2022-07-19] MEDS: ATORVASTATIN 20 MG TAB PO SCH (08:52)
[2022-07-19] MEDS: allopurinoL 100 MG TAB PO SCH (08:52)
[2022-07-19] MEDS: ASPIRIN 81MG ENTERIC TABLET PO SCH (08:53)
[2022-07-19] MEDS: ENOXAPARIN 40MG/0.4ML SYRINGE (J1650 PER 10MG) SC SCH (08:53)
[2022-07-19] MEDS: OMEPRAZOLE 20MG CAP PO SCH (08:53)
[2022-07-19] MEDS: NICOTINE 14 MG/24 HR TRANSDERMAL TD SCH (08:54)
[2022-07-19] MEDS: SENOKOT S TAB PO SCH (19:43)
[2022-07-19] MEDS: RAMELTEON 8 MG TAB (ROZEREM) PO PRN (20:04)
[2022-07-19] MEDS: QUEtiapine FUMERATE XR 50MG TABER PO SCH (20:04)
[2022-07-20 06:00] VITALS: BP 121/75
[2022-07-20] MEDS: SPIRONOLACTONE 25 MG TAB PO SCH (08:36)
[2022-07-20] MEDS: NICOTINE 14 MG/24 HR TRANSDERMAL TD SCH (08:36)
[2022-07-20] MEDS: ENOXAPARIN 40MG/0.4ML SYRINGE (J1650 PER 10MG) SC SCH (08:36)
[2022-07-20] MEDS: ASPIRIN 81MG ENTERIC TABLET PO SCH (08:37)
[2022-07-20] MEDS: SERTRALINE HCL 25 MG TABLET PO SCH (08:38)
[2022-07-20] MEDS: ATORVASTATIN 20 MG TAB PO SCH (08:38)
[2022-07-20] MEDS: OMEPRAZOLE 20MG CAP PO SCH (08:38)
[2022-07-20] MEDS: allopurinoL 100 MG TAB PO SCH (08:38)
[2022-07-20] MEDS: SENOKOT S TAB PO SCH (19:56)
[2022-07-20] MEDS: QUEtiapine FUMERATE XR 50MG TABER PO SCH (20:57)
[2022-07-20] MEDS: RAMELTEON 8 MG TAB (ROZEREM) PO PRN (20:57)
[2022-07-21 06:00] VITALS: BP 125/70
[2022-07-21] MEDS: ASPIRIN 81MG ENTERIC TABLET PO SCH (09:21)
[2022-07-21] MEDS: ENOXAPARIN 40MG/0.4ML SYRINGE (J1650 PER 10MG) SC SCH (09:21)
[2022-07-21] MEDS: NICOTINE 14 MG/24 HR TRANSDERMAL TD SCH (09:22)
[2022-07-21] MEDS: OMEPRAZOLE 20MG CAP PO SCH (09:23)
[2022-07-21] MEDS: ATORVASTATIN 20 MG TAB PO SCH (09:23)
[2022-07-21] MEDS: SERTRALINE HCL 25 MG TABLET PO SCH (09:23)
[2022-07-21] MEDS: allopurinoL 100 MG TAB PO SCH (09:23)
[2022-07-21] MEDS: SPIRONOLACTONE 25 MG TAB PO SCH (09:24)
[2022-07-21] MEDS: SENOKOT S TAB PO SCH (20:05)
[2022-07-21] MEDS: QUEtiapine FUMERATE XR 50MG TABER PO SCH (20:05)
[2022-07-22 06:00] VITALS: BP 123/76
[2022-07-22] MEDS: ENOXAPARIN 40MG/0.4ML SYRINGE (J1650 PER 10MG) SC SCH (09:48)
[2022-07-22] MEDS: OMEPRAZOLE 20MG CAP PO SCH (09:49)
[2022-07-22] MEDS: ATORVASTATIN 20 MG TAB PO SCH (09:49)
[2022-07-22] MEDS: LIDOCAINE VISCOUS 2% SOLN 15ML UDC SS SCH ×4 (09:49→20:11)
[2022-07-22] MEDS: SPIRONOLACTONE 25 MG TAB PO SCH (09:49)
[2022-07-22] MEDS: allopurinoL 100 MG TAB PO SCH (09:50)
[2022-07-22] MEDS: NICOTINE 14 MG/24 HR TRANSDERMAL TD SCH (09:50)
[2022-07-22] MEDS: SERTRALINE HCL 25 MG TABLET PO SCH (09:50)
[2022-07-22] MEDS: ASPIRIN 81MG ENTERIC TABLET PO SCH (09:50)
[2022-07-22] MEDS: SENOKOT S TAB PO SCH (20:09)
[2022-07-22] MEDS: RAMELTEON 8 MG TAB (ROZEREM) PO PRN (20:09)
[2022-07-22] MEDS: QUEtiapine FUMERATE XR 50MG TABER PO SCH (20:10)
[2022-07-23 06:00] VITALS: BP 148/84
[2022-07-23] MEDS: ENOXAPARIN 40MG/0.4ML SYRINGE (J1650 PER 10MG) SC SCH (09:55)
[2022-07-23] MEDS: LIDOCAINE VISCOUS 2% SOLN 15ML UDC SS SCH ×5 (09:55→20:31)
[2022-07-23] MEDS: NICOTINE 14 MG/24 HR TRANSDERMAL TD SCH (09:56)
[2022-07-23] MEDS: OMEPRAZOLE 20MG CAP PO SCH (09:57)
[2022-07-23] MEDS: SPIRONOLACTONE 25 MG TAB PO SCH (09:57)
[2022-07-23] MEDS: SERTRALINE HCL 25 MG TABLET PO SCH (09:58)
[2022-07-23] MEDS: allopurinoL 100 MG TAB PO SCH (09:58)
[2022-07-23] MEDS: ATORVASTATIN 20 MG TAB PO SCH (09:58)
[2022-07-23] MEDS: ASPIRIN 81MG ENTERIC TABLET PO SCH (09:58)
[2022-07-23] MEDS: RAMELTEON 8 MG TAB (ROZEREM) PO PRN (20:30)
[2022-07-23] MEDS: SENOKOT S TAB PO SCH (20:30)
[2022-07-23] MEDS: QUEtiapine FUMERATE XR 50MG TABER PO SCH (20:30)
[2022-07-24 06:50] VITALS: BP 127/87
[2022-07-24] MEDS: LIDOCAINE VISCOUS 2% SOLN 15ML UDC SS SCH ×4 (09:00→20:51)
[2022-07-24] MEDS: SPIRONOLACTONE 25 MG TAB PO SCH (10:06)
[2022-07-24] MEDS: ASPIRIN 81MG ENTERIC TABLET PO SCH (10:06)
[2022-07-24] MEDS: ATORVASTATIN 20 MG TAB PO SCH (10:06)
[2022-07-24] MEDS: NICOTINE 14 MG/24 HR TRANSDERMAL TD SCH (10:07)
[2022-07-24] MEDS: allopurinoL 100 MG TAB PO SCH (10:10)
[2022-07-24] MEDS: SERTRALINE HCL 25 MG TABLET PO SCH (10:10)
[2022-07-24] MEDS: OMEPRAZOLE 20MG CAP PO SCH (10:10)
[2022-07-24] MEDS: ENOXAPARIN 40MG/0.4ML SYRINGE (J1650 PER 10MG) SC SCH (10:11)
[2022-07-24] MEDS: SENOKOT S TAB PO SCH (20:27)
[2022-07-24] MEDS: RAMELTEON 8 MG TAB (ROZEREM) PO PRN (20:27)
[2022-07-24] MEDS: QUEtiapine FUMERATE XR 50MG TABER PO SCH (20:27)
[2022-07-25 05:28] VITALS: BP 156/83
[2022-07-25 08:58] VITALS: BP 156/83
[2022-07-25] MEDS: SPIRONOLACTONE 25 MG TAB PO SCH (08:58)
[2022-07-25] MEDS: ASPIRIN 81MG ENTERIC TABLET PO SCH (08:58)
[2022-07-25] MEDS: OMEPRAZOLE 20MG CAP PO SCH (08:58)
[2022-07-25] MEDS: allopurinoL 100 MG TAB PO SCH (08:58)
[2022-07-25] MEDS: ATORVASTATIN 20 MG TAB PO SCH (08:58)
[2022-07-25] MEDS: SERTRALINE HCL 25 MG TABLET PO SCH (08:58)
[2022-07-25] MEDS: NICOTINE 14 MG/24 HR TRANSDERMAL TD SCH (08:59)
[2022-07-25] MEDS: ENOXAPARIN 40MG/0.4ML SYRINGE (J1650 PER 10MG) SC SCH (09:00)
[2022-07-25] MEDS: LIDOCAINE VISCOUS 2% SOLN 15ML UDC SS SCH ×2 (09:00→12:06)
== END 2022-07-25 14:31 | disposition home health service (06) | DRG 884 ==
LOC: M ED 18:07 → M ED INP 18:08 → EEVIPCON 05-16 11:02 → OBSVTOIN 05-16 11:02 → ENRESERV 05-16 13:54 → M MSPAV 05-16 15:10
PROVIDERS: ADMIT Family Medicine; ATTEND Internal Medicine Nephrology
DX: F03.91 Unspecified dementia, unspecified severity, with behavioral disturbance (principal); R13.10 Dysphagia, unspecified; D50.9 Iron deficiency anemia, unspecified; J44.9 Chronic obstructive pulmonary disease, unspecified; F32.9 Major depressive disorder, single episode, unspecified; E78.5 Hyperlipidemia, unspecified; M10.9 Gout, unspecified; I10 Essential (primary) hypertension; F10.20 Alcohol dependence, uncomplicated; I35.8 Other nonrheumatic aortic valve disorders; Z86.73 Personal history of transient ischemic attack (TIA), and cerebral infarction without residual deficits; Z86.711 Personal history of pulmonary embolism; Z95.828 Presence of other vascular implants and grafts; Z79.82 Long term (current) use of aspirin; Z79.899 Other long term (current) drug therapy; Z87.891 Personal history of nicotine dependence; Z75.1 Person awaiting admission to adequate facility elsewhere

== ENCOUNTER 2022-09-16 11:37 | Inpatient (IN) | payer MEDICARE, OTHER ==
[~2022-09-16 11:37] MED LIST changes: +ASPI-161 PO; -QUET50TA48 PO; +QUET50TA67 PO; +SENN-23 PO
[2022-09-16] MEDS ORDERED: NS 1,000 ML IV ONE ×2 (12:45→13:45)
[2022-09-16 13:17] LABS: BASO # 0.1 10^3/uL (0.0-0.2); BASO % 0.6 % (0.0-1.0); EOS # 0.1 10^3/uL (0.0-0.5); EOS % 0.7 % (0.0-3.0); HEMATOCRIT 65.4 % (42.0-52.0); LYMPH # 2.3 10^3/uL (1.5-5.0); LYMPH % 16.3 % (24.0-44.0); MEAN CORPUSCULAR HEMOGLOBIN 28.9 pg (27.0-33.0); MEAN CORPUSCULAR HGB CONC 30.3 g/dl (32.0-36.5); MEAN CORPUSCULAR VOLUME 95.3 fl (80.0-96.0); MONO # 0.9 10^3/uL (0.0-0.8); MONO % 6.6 % (2.0-8.0); NEUTROPHILS # 10.5 10^3/uL (1.5-8.5); NEUTROPHILS % 75.4 % (36.0-66.0); PLATELET COUNT, AUTOMATED 259 10^3/uL (150-450); RED BLOOD COUNT 6.86 10^6/uL (4.30-6.10); WHITE BLOOD COUNT 13.9 10^3/uL (4.0-10.0)
[2022-09-16 13:20] LABS: HEMOGLOBIN 19.8 g/dl (13.5-17.5)
[2022-09-16 13:45] LABS: CALCIUM LEVEL 11.5 MG/DL (8.8-10.2); CREATININE FOR GFR 3.29 MG/DL (0.70-1.30); GLOMERULAR FILTRATION RATE 20.3 (>49); POTASSIUM SERUM 4.3 MEQ/L (3.5-5.1)
[2022-09-16] MEDS ORDERED: D5W 1,000 ML IV SCH (14:05)
[2022-09-16] MEDS ORDERED: CETI-24 PO (14:06)
[2022-09-16] MEDS ORDERED: BENZ200C70 PO (14:06)
[2022-09-16] MEDS ORDERED: HOME MED LIST COMPLETE! XX SCH (14:10)
[2022-09-16] MEDS ORDERED: ALBUTEROL 90 MCG/ACT 8GM HFA INHALER INH PRN (14:45)
[2022-09-16 15:01] LABS: RSV AMPLIFICATION NEGATIVE (NEGATIVE)
[2022-09-16 16:45] VITALS: BP 128/93
[2022-09-16 17:08] LABS: BILIRUBIN,DIRECT 0.1 MG/DL (0.0-0.2); BILIRUBIN,TOTAL 0.4 MG/DL (0.2-1.0); TOTAL PROTEIN 7.2 GM/DL (6.4-8.2)
[2022-09-16] MEDS: VITAMIN D 1,000 INTERNATIONAL UNITS TABLET PO SCH (17:29)
[2022-09-16] MEDS: BENZONATATE 100MG CAPSULE PO SCH ×4 (17:30→21:49)
[2022-09-16 18:40] LABS: HEMATOCRIT 63.9 % (42.0-52.0); MEAN CORPUSCULAR HEMOGLOBIN 29.5 pg (27.0-33.0); MEAN CORPUSCULAR HGB CONC 29.7 g/dl (32.0-36.5); MEAN CORPUSCULAR VOLUME 99.1 fl (80.0-96.0); PLATELET COUNT, AUTOMATED 203 10^3/uL (150-450); RED BLOOD COUNT 6.45 10^6/uL (4.30-6.10); WHITE BLOOD COUNT 11.6 10^3/uL (4.0-10.0)
[2022-09-16 19:28] LABS: CREATININE FOR GFR 2.78 MG/DL (0.70-1.30); GLOMERULAR FILTRATION RATE 24.7 (>49); POTASSIUM SERUM 4.7 MEQ/L (3.5-5.1)
[2022-09-16] MEDS ORDERED: LR 1,000 ML IV ONE (19:55)
[2022-09-16 20:38] LABS: TOTAL PROTEIN,RANDOM URINE 149.7 MG/DL (0.0-12.0)
[2022-09-16] MEDS: QUEtiapine FUMERATE XR 50MG TABER PO SCH ×3 (21:00→21:50)
[2022-09-16] MEDS: D5W 1,000 ML IV SCH (21:41)
[2022-09-16] MEDS: HEPARIN SOD (PORCINE) 5000UNITS/ML 1ML VIAL/SYRINGE SC SCH (21:41)
[2022-09-16] MEDS: SENOKOT S TAB PO SCH ×3 (21:41→21:59)
[2022-09-16 22:00] VITALS: BP 122/61
[2022-09-16] MEDS ORDERED: clonazePAM 0.5 MG TAB PO ONE (22:00)
[2022-09-16 23:45] LABS: CALCIUM LEVEL 9.7 MG/DL (8.8-10.2); CREATININE FOR GFR 2.52 MG/DL (0.70-1.30); GLOMERULAR FILTRATION RATE 27.7 (>49); POTASSIUM SERUM 4.3 MEQ/L (3.5-5.1)
[2022-09-17 02:00] VITALS: BP 140/82
[2022-09-17] MEDS: D5W 1,000 ML IV SCH ×3 (02:57→21:00)
[2022-09-17] MEDS: HEPARIN SOD (PORCINE) 5000UNITS/ML 1ML VIAL/SYRINGE SC SCH ×3 (05:09→21:33)
[2022-09-17 05:20] VITALS: BP 137/84
[2022-09-17 07:06] LABS: HEMATOCRIT 56.8 % (42.0-52.0); MEAN CORPUSCULAR HEMOGLOBIN 29.1 pg (27.0-33.0); MEAN CORPUSCULAR HGB CONC 29.6 g/dl (32.0-36.5); MEAN CORPUSCULAR VOLUME 98.4 fl (80.0-96.0); PLATELET COUNT, AUTOMATED 170 10^3/uL (150-450); RED BLOOD COUNT 5.77 10^6/uL (4.30-6.10); WHITE BLOOD COUNT 8.9 10^3/uL (4.0-10.0)
[2022-09-17 07:36] LABS: CALCIUM LEVEL 9.6 MG/DL (8.8-10.2); CREATININE FOR GFR 2.26 MG/DL (0.70-1.30); GLOMERULAR FILTRATION RATE 31.4 (>49)
[2022-09-17 07:40] LABS: HEMOGLOBIN 16.8 g/dl (13.5-17.5)
[2022-09-17] MEDS: ASPIRIN 81MG ENTERIC TABLET PO SCH ×2 (09:00→09:17)
[2022-09-17] MEDS: BENZONATATE 100MG CAPSULE PO SCH ×4 (09:00→21:32)
[2022-09-17] MEDS: allopurinoL 100 MG TAB PO SCH ×2 (09:00→09:17)
[2022-09-17] MEDS: SERTRALINE HCL 25 MG TABLET PO SCH ×2 (09:00→09:18)
[2022-09-17] MEDS: CETIRIZINE (ZyrTEC) 10 MG TAB PO SCH ×2 (09:00→09:18)
[2022-09-17] MEDS: VITAMIN D 1,000 INTERNATIONAL UNITS TABLET PO SCH ×2 (09:00→09:18)
[2022-09-17] MEDS: PANTOPRAZOLE 40MG TAB (PROTONIX) PO SCH ×2 (09:00→09:18)
[2022-09-17] MEDS: ATORVASTATIN 20 MG TAB PO SCH ×2 (09:00→09:17)
[2022-09-17 10:00] VITALS: BP 140/84
[2022-09-17] MEDS ORDERED: OLANZapine INTRAMUSCULAR 10MG VIAL IM PRN (11:55)
[2022-09-17 14:00] VITALS: BP 138/90
[2022-09-17 18:00] VITALS: BP 123/65
[2022-09-17 20:20] VITALS: BP 108/74
[2022-09-17 20:53] LABS: CREATININE FOR GFR 2.22 MG/DL (0.70-1.30); POTASSIUM SERUM 4.5 MEQ/L (3.5-5.1)
[2022-09-17] MEDS: QUEtiapine FUMERATE XR 50MG TABER PO SCH (21:32)
[2022-09-17] MEDS: SENOKOT S TAB PO SCH (21:33)
[2022-09-18] VITALS (7 sets, daily range): BP systolic 96–142; BP diastolic 60–86
[2022-09-18] MEDS: D5W 1,000 ML IV SCH ×3 (05:00→21:03)
[2022-09-18] MEDS: HEPARIN SOD (PORCINE) 5000UNITS/ML 1ML VIAL/SYRINGE SC SCH ×3 (05:38→21:09)
[2022-09-18 07:01] LABS: CALCIUM LEVEL 9.8 MG/DL (8.8-10.2); CREATININE FOR GFR 1.77 MG/DL (0.70-1.30); GLOMERULAR FILTRATION RATE 41.6 (>49); POTASSIUM SERUM 4.1 MEQ/L (3.5-5.1)
[2022-09-18] MEDS: SERTRALINE HCL 25 MG TABLET PO SCH (11:03)
[2022-09-18] MEDS: VITAMIN D 1,000 INTERNATIONAL UNITS TABLET PO SCH (11:04)
[2022-09-18] MEDS: PANTOPRAZOLE 40MG TAB (PROTONIX) PO SCH (11:05)
[2022-09-18] MEDS: CETIRIZINE (ZyrTEC) 10 MG TAB PO SCH (11:05)
[2022-09-18] MEDS: ATORVASTATIN 20 MG TAB PO SCH (11:06)
[2022-09-18] MEDS: ASPIRIN 81MG ENTERIC TABLET PO SCH (11:06)
[2022-09-18] MEDS: BENZONATATE 100MG CAPSULE PO SCH ×3 (11:07→21:00)
[2022-09-18] MEDS: allopurinoL 100 MG TAB PO SCH (11:07)
[2022-09-18 11:32] LABS: BASO % 0.4 % (0.0-1.0); EOS # 0.3 10^3/uL (0.0-0.5); EOS % 2.8 % (0.0-3.0); HEMATOCRIT 51.7 % (42.0-52.0); HEMOGLOBIN 15.6 g/dl (13.5-17.5); LYMPH # 2.1 10^3/uL (1.5-5.0); LYMPH % 23.2 % (24.0-44.0); MEAN CORPUSCULAR HEMOGLOBIN 29.3 pg (27.0-33.0); MEAN CORPUSCULAR HGB CONC 30.2 g/dl (32.0-36.5); MONO # 0.9 10^3/uL (0.0-0.8); MONO % 10.3 % (2.0-8.0); NEUTROPHILS # 5.7 10^3/uL (1.5-8.5); PLATELET COUNT, AUTOMATED 178 10^3/uL (150-450); RED BLOOD COUNT 5.33 10^6/uL (4.30-6.10)
[2022-09-18 11:41] LABS: CALCIUM LEVEL 9.5 MG/DL (8.8-10.2); CREATININE FOR GFR 1.96 MG/DL (0.70-1.30); POTASSIUM SERUM 3.9 MEQ/L (3.5-5.1)
[2022-09-18] MEDS ORDERED: NS 1,000 ML IV SCH (11:45)
[2022-09-18 18:21] LABS: CALCIUM LEVEL 10.1 MG/DL (8.8-10.2); CREATININE FOR GFR 1.79 MG/DL (0.70-1.30); POTASSIUM SERUM 4.3 MEQ/L (3.5-5.1)
[2022-09-18] MEDS: QUEtiapine FUMERATE XR 50MG TABER PO SCH (21:00)
[2022-09-18] MEDS: SENOKOT S TAB PO SCH (21:04)
[2022-09-18 23:34] LABS: CALCIUM LEVEL 9.6 MG/DL (8.8-10.2); CREATININE FOR GFR 1.82 MG/DL (0.70-1.30); GLOMERULAR FILTRATION RATE 40.3 (>49); POTASSIUM SERUM 3.5 MEQ/L (3.5-5.1)
[2022-09-19] VITALS (8 sets, daily range): BP systolic 114–160; BP diastolic 66–86
[2022-09-19] MEDS: D5W 1,000 ML IV SCH ×3 (05:14→22:25)
[2022-09-19] MEDS: HEPARIN SOD (PORCINE) 5000UNITS/ML 1ML VIAL/SYRINGE SC SCH ×3 (05:15→21:37)
[2022-09-19] MEDS ORDERED: NS 1,000 ML IV ONE (06:20)
[2022-09-19 07:38] LABS: BASO % 0.4 % (0.0-1.0); EOS # 0.3 10^3/uL (0.0-0.5); EOS % 4.1 % (0.0-3.0); HEMATOCRIT 55.4 % (42.0-52.0); HEMOGLOBIN 16.3 g/dl (13.5-17.5); LYMPH # 1.8 10^3/uL (1.5-5.0); LYMPH % 24.5 % (24.0-44.0); MEAN CORPUSCULAR HEMOGLOBIN 28.6 pg (27.0-33.0); MEAN CORPUSCULAR HGB CONC 29.4 g/dl (32.0-36.5); MEAN CORPUSCULAR VOLUME 97.4 fl (80.0-96.0); MONO # 0.6 10^3/uL (0.0-0.8); MONO % 8.9 % (2.0-8.0); NEUTROPHILS # 4.5 10^3/uL (1.5-8.5); NEUTROPHILS % 61.7 % (36.0-66.0); PLATELET COUNT, AUTOMATED 174 10^3/uL (150-450); RED BLOOD COUNT 5.69 10^6/uL (4.30-6.10); WHITE BLOOD COUNT 7.2 10^3/uL (4.0-10.0)
[2022-09-19 08:22] LABS: CALCIUM LEVEL 9.2 MG/DL (8.8-10.2); CREATININE FOR GFR 1.6 MG/DL (0.70-1.30); GLOMERULAR FILTRATION RATE 46.7 (>49); POTASSIUM SERUM 3.9 MEQ/L (3.5-5.1)
[2022-09-19] MEDS: allopurinoL 100 MG TAB PO SCH ×2 (09:00→10:12)
[2022-09-19] MEDS: PANTOPRAZOLE 40MG TAB (PROTONIX) PO SCH ×2 (09:00→10:14)
[2022-09-19] MEDS: ASPIRIN 81MG ENTERIC TABLET PO SCH ×2 (09:00→10:12)
[2022-09-19] MEDS: VITAMIN D 1,000 INTERNATIONAL UNITS TABLET PO SCH ×2 (09:00→10:13)
[2022-09-19] MEDS: CETIRIZINE (ZyrTEC) 10 MG TAB PO SCH ×2 (09:00→10:13)
[2022-09-19] MEDS: ATORVASTATIN 20 MG TAB PO SCH ×2 (09:00→10:11)
[2022-09-19] MEDS: SERTRALINE HCL 25 MG TABLET PO SCH ×2 (09:00→10:14)
[2022-09-19] MEDS: BENZONATATE 100MG CAPSULE PO SCH ×3 (10:12→21:00)
[2022-09-19 12:06] LABS: CALCIUM LEVEL 9.1 MG/DL (8.8-10.2); CREATININE FOR GFR 1.49 MG/DL (0.70-1.30); GLOMERULAR FILTRATION RATE 50.7 (>49); POTASSIUM SERUM 3.9 MEQ/L (3.5-5.1)
[2022-09-19] MEDS ORDERED: LIDOCAINE 1% MDV 20ML VIAL As Ordered ONE (15:07)
[2022-09-19] MEDS: SODIUM CHLORIDE 0.9% INJ 10 ML SYR IV SCH (16:30)
[2022-09-19 18:52] LABS: CALCIUM LEVEL 8.9 MG/DL (8.8-10.2); CREATININE FOR GFR 1.36 MG/DL (0.70-1.30); GLOMERULAR FILTRATION RATE 56.3 (>49); POTASSIUM SERUM 4.1 MEQ/L (3.5-5.1)
[2022-09-19] MEDS: QUEtiapine FUMERATE XR 50MG TABER PO SCH (21:00)
[2022-09-19] MEDS: SENOKOT S TAB PO SCH (21:00)
[2022-09-19 23:22] LABS: CALCIUM LEVEL 8.9 MG/DL (8.8-10.2); CREATININE FOR GFR 1.32 MG/DL (0.70-1.30); GLOMERULAR FILTRATION RATE 58.3 (>49); POTASSIUM SERUM 3.7 MEQ/L (3.5-5.1)
[2022-09-20 02:00] VITALS: BP 116/49
[2022-09-20] MEDS: SODIUM CHLORIDE 0.9% INJ 10 ML SYR IV PRN (04:50)
[2022-09-20 05:35] VITALS: BP 114/52
[2022-09-20 05:49] LABS: CALCIUM LEVEL 8.6 MG/DL (8.8-10.2); CREATININE FOR GFR 1.36 MG/DL (0.70-1.30); GLOMERULAR FILTRATION RATE 56.3 (>49); POTASSIUM SERUM 3.3 MEQ/L (3.5-5.1)
[2022-09-20] MEDS: HEPARIN SOD (PORCINE) 5000UNITS/ML 1ML VIAL/SYRINGE SC SCH ×3 (06:00→21:18)
[2022-09-20] MEDS: D5W 1,000 ML IV SCH ×3 (06:31→21:06)
[2022-09-20 08:14] LABS: MAGNESIUM LEVEL 2.3 MG/DL (1.8-2.4)
[2022-09-20] MEDS: ATORVASTATIN 20 MG TAB PO SCH (08:51)
[2022-09-20] MEDS: PANTOPRAZOLE 40MG TAB (PROTONIX) PO SCH (08:51)
[2022-09-20] MEDS: ASPIRIN 81MG ENTERIC TABLET PO SCH (08:51)
[2022-09-20] MEDS: BENZONATATE 100MG CAPSULE PO SCH ×3 (08:51→21:00)
[2022-09-20] MEDS: VITAMIN D 1,000 INTERNATIONAL UNITS TABLET PO SCH (08:51)
[2022-09-20] MEDS: CETIRIZINE (ZyrTEC) 10 MG TAB PO SCH (08:52)
[2022-09-20] MEDS: allopurinoL 100 MG TAB PO SCH (08:52)
[2022-09-20] MEDS: SERTRALINE HCL 25 MG TABLET PO SCH (08:52)
[2022-09-20 10:00] VITALS: BP 112/71
[2022-09-20] MEDS ORDERED: POTASSIUM CHLORIDE INJ 40 MEQ in LR 1,000 ML IV SCH (10:00)
[2022-09-20 13:21] LABS: BLOOD UREA NITROGEN 21 MG/DL (7-18); CALCIUM LEVEL 8.8 MG/DL (8.8-10.2); CARBON DIOXIDE LEVEL 26 MEQ/L (21-32); CHLORIDE LEVEL 121 MEQ/L (98-107); CREATININE FOR GFR 1.26 MG/DL (0.70-1.30); GLOMERULAR FILTRATION RATE > 60.0 (>49); GLUCOSE, FASTING 98 MG/DL (70-100); POTASSIUM SERUM 3.3 MEQ/L (3.5-5.1); SODIUM LEVEL 151 MEQ/L (136-145)
[2022-09-20 14:00] VITALS: BP 112/58
[2022-09-20] MEDS: SODIUM CHLORIDE 0.9% INJ 10 ML SYR IV SCH (16:13)
[2022-09-20 18:00] VITALS: BP 123/62
[2022-09-20 18:28] LABS: BLOOD UREA NITROGEN 19 MG/DL (7-18); CARBON DIOXIDE LEVEL 20 MEQ/L (21-32); CHLORIDE LEVEL 121 MEQ/L (98-107); CREATININE FOR GFR 1.22 MG/DL (0.70-1.30); GLOMERULAR FILTRATION RATE > 60.0 (>49); GLUCOSE, FASTING 95 MG/DL (70-100); POTASSIUM SERUM 4.4 MEQ/L (3.5-5.1); SODIUM LEVEL 149 MEQ/L (136-145)
[2022-09-20 20:20] VITALS: BP 136/70
[2022-09-20] MEDS: QUEtiapine FUMERATE XR 50MG TABER PO SCH (21:00)
[2022-09-20] MEDS: SENOKOT S TAB PO SCH (21:00)
[2022-09-21] VITALS: BP 97/57
[2022-09-21 02:00] VITALS: BP 125/70
[2022-09-21] MEDS: D5W 1,000 ML IV SCH ×2 (05:02→16:46)
[2022-09-21] MEDS: HEPARIN SOD (PORCINE) 5000UNITS/ML 1ML VIAL/SYRINGE SC SCH (05:14)
[2022-09-21 05:45] VITALS: BP 99/58
[2022-09-21 06:19] LABS: BLOOD UREA NITROGEN 15 MG/DL (7-18); CALCIUM LEVEL 8.4 MG/DL (8.8-10.2); CARBON DIOXIDE LEVEL 24 MEQ/L (21-32); CHLORIDE LEVEL 118 MEQ/L (98-107); CREATININE FOR GFR 1.15 MG/DL (0.70-1.30); GLOMERULAR FILTRATION RATE > 60.0 (>49); GLUCOSE, FASTING 120 MG/DL (70-100); POTASSIUM SERUM 3.2 MEQ/L (3.5-5.1); SODIUM LEVEL 148 MEQ/L (136-145)
[2022-09-21] MEDS: BENZONATATE 100MG CAPSULE PO SCH ×3 (08:35→20:10)
[2022-09-21] MEDS: ASPIRIN 81MG ENTERIC TABLET PO SCH (08:36)
[2022-09-21] MEDS: VITAMIN D 1,000 INTERNATIONAL UNITS TABLET PO SCH (08:36)
[2022-09-21] MEDS: PANTOPRAZOLE 40MG TAB (PROTONIX) PO SCH (08:36)
[2022-09-21] MEDS: allopurinoL 100 MG TAB PO SCH (08:36)
[2022-09-21] MEDS: CETIRIZINE (ZyrTEC) 10 MG TAB PO SCH (08:36)
[2022-09-21] MEDS: ATORVASTATIN 20 MG TAB PO SCH (08:36)
[2022-09-21] MEDS: SERTRALINE HCL 25 MG TABLET PO SCH (08:36)
[2022-09-21] MEDS ORDERED: LR 1,000 ML IV ONE (08:55)
[2022-09-21] MEDS: ENOXAPARIN 40MG/0.4ML SYRINGE (J1650 PER 10MG) SC SCH (09:00)
[2022-09-21 10:00] VITALS: BP 131/74
[2022-09-21 13:09] LABS: BLOOD UREA NITROGEN 12 MG/DL (7-18); CALCIUM LEVEL 8.7 MG/DL (8.8-10.2); CARBON DIOXIDE LEVEL 24 MEQ/L (21-32); CHLORIDE LEVEL 119 MEQ/L (98-107); CREATININE FOR GFR 1.15 MG/DL (0.70-1.30); GLOMERULAR FILTRATION RATE > 60.0 (>49); GLUCOSE, FASTING 126 MG/DL (70-100); POTASSIUM SERUM 4.1 MEQ/L (3.5-5.1); SODIUM LEVEL 149 MEQ/L (136-145)
[2022-09-21] MEDS: SODIUM CHLORIDE 0.9% INJ 10 ML SYR IV SCH (16:52)
[2022-09-21 18:00] VITALS: BP 141/84
[2022-09-21 18:59] LABS: BLOOD UREA NITROGEN 11 MG/DL (7-18); CALCIUM LEVEL 8.5 MG/DL (8.8-10.2); CARBON DIOXIDE LEVEL 27 MEQ/L (21-32); CHLORIDE LEVEL 118 MEQ/L (98-107); CREATININE FOR GFR 1.03 MG/DL (0.70-1.30); GLOMERULAR FILTRATION RATE > 60.0 (>49); GLUCOSE, FASTING 109 MG/DL (70-100); POTASSIUM SERUM 3.4 MEQ/L (3.5-5.1); SODIUM LEVEL 149 MEQ/L (136-145)
[2022-09-21] MEDS: QUEtiapine FUMERATE XR 50MG TABER PO SCH ×2 (20:08→20:11)
[2022-09-21] MEDS: MIRTAZAPINE 15 MG TAB PO SCH ×2 (20:08→20:11)
[2022-09-21] MEDS: SENOKOT S TAB PO SCH (20:10)
[2022-09-21 20:25] VITALS: BP 142/74
[2022-09-22] MEDS: D5W 1,000 ML IV SCH (00:39)
[2022-09-22 01:20] VITALS: BP 140/72
[2022-09-22 05:00] VITALS: BP 128/72
[2022-09-22 07:00] LABS: BLOOD UREA NITROGEN 8 MG/DL (7-18); CALCIUM LEVEL 8.3 MG/DL (8.8-10.2); CARBON DIOXIDE LEVEL 27 MEQ/L (21-32); CHLORIDE LEVEL 109 MEQ/L (98-107); CREATININE FOR GFR 1.04 MG/DL (0.70-1.30); GLOMERULAR FILTRATION RATE > 60.0 (>49); GLUCOSE, FASTING 110 MG/DL (70-100); POTASSIUM SERUM 2.8 MEQ/L (3.5-5.1); SODIUM LEVEL 140 MEQ/L (136-145)
[2022-09-22] MEDS ORDERED: POTASSIUM CHLORIDE 10% LIQ 20 MEQ/15 ML UDC PO ONE (07:30)
[2022-09-22] MEDS: KCL 10MEQ/100ML SWI (KRUN) 10 MEQ in IV 1 EA IV SCH ×4 (07:40→11:29)
[2022-09-22] MEDS: ENOXAPARIN 40MG/0.4ML SYRINGE (J1650 PER 10MG) SC SCH (09:00)
[2022-09-22] MEDS: PANTOPRAZOLE 40MG TAB (PROTONIX) PO SCH (09:11)
[2022-09-22] MEDS: CETIRIZINE (ZyrTEC) 10 MG TAB PO SCH (09:11)
[2022-09-22] MEDS: SERTRALINE HCL 25 MG TABLET PO SCH (09:11)
[2022-09-22] MEDS: BENZONATATE 100MG CAPSULE PO SCH ×4 (09:11→20:43)
[2022-09-22] MEDS: allopurinoL 100 MG TAB PO SCH (09:11)
[2022-09-22] MEDS: ASPIRIN 81MG ENTERIC TABLET PO SCH (09:11)
[2022-09-22] MEDS: ATORVASTATIN 20 MG TAB PO SCH (09:11)
[2022-09-22] MEDS: VITAMIN D 1,000 INTERNATIONAL UNITS TABLET PO SCH (09:11)
[2022-09-22 10:00] VITALS: BP 119/85
[2022-09-22] MEDS: SODIUM CHLORIDE 0.9% INJ 10 ML SYR IV PRN (12:38)
[2022-09-22 14:00] VITALS: BP 127/65
[2022-09-22 14:20] LABS: BLOOD UREA NITROGEN 8 MG/DL (7-18); CALCIUM LEVEL 8.4 MG/DL (8.8-10.2); CARBON DIOXIDE LEVEL 27 MEQ/L (21-32); CHLORIDE LEVEL 105 MEQ/L (98-107); CREATININE FOR GFR 0.98 MG/DL (0.70-1.30); GLOMERULAR FILTRATION RATE > 60.0 (>49); GLUCOSE, FASTING 90 MG/DL (70-100); POTASSIUM SERUM 3.5 MEQ/L (3.5-5.1); SODIUM LEVEL 137 MEQ/L (136-145)
[2022-09-22] MEDS: SODIUM CHLORIDE 0.9% INJ 10 ML SYR IV SCH (16:23)
[2022-09-22 18:00] VITALS: BP 130/71
[2022-09-22 20:00] VITALS: BP 124/71
[2022-09-22] MEDS: SENOKOT S TAB PO SCH (20:42)
[2022-09-22] MEDS: MIRTAZAPINE 15 MG TAB PO SCH (20:42)
[2022-09-22] MEDS: QUEtiapine FUMERATE XR 50MG TABER PO SCH (20:43)
[2022-09-23] VITALS (9 sets, daily range): BP systolic 86–126; BP diastolic 40–73
[2022-09-23] MEDS ORDERED: NS 500 ML IV ONE ×2 (02:15→04:00)
[2022-09-23 06:00] LABS: BASO % 0.2 % (0.0-1.0); EOS # 0.2 10^3/uL (0.0-0.5); EOS % 3.3 % (0.0-3.0); HEMATOCRIT 38.4 % (42.0-52.0); HEMOGLOBIN 12.6 g/dl (13.5-17.5); LYMPH # 1.7 10^3/uL (1.5-5.0); LYMPH % 28.6 % (24.0-44.0); MEAN CORPUSCULAR HEMOGLOBIN 29.3 pg (27.0-33.0); MEAN CORPUSCULAR HGB CONC 32.8 g/dl (32.0-36.5); MEAN CORPUSCULAR VOLUME 89.3 fl (80.0-96.0); MONO # 0.7 10^3/uL (0.0-0.8); MONO % 11.3 % (2.0-8.0); NEUTROPHILS # 3.4 10^3/uL (1.5-8.5); NEUTROPHILS % 56.1 % (36.0-66.0); PLATELET COUNT, AUTOMATED 175 10^3/uL (150-450)
[2022-09-23 06:42] LABS: BLOOD UREA NITROGEN 9 MG/DL (7-18); CALCIUM LEVEL 7.9 MG/DL (8.8-10.2); CARBON DIOXIDE LEVEL 22 MEQ/L (21-32); CHLORIDE LEVEL 109 MEQ/L (98-107); CREATININE FOR GFR 0.77 MG/DL (0.70-1.30); GLOMERULAR FILTRATION RATE > 60.0 (>49); GLUCOSE, FASTING 84 MG/DL (70-100); POTASSIUM SERUM 2.9 MEQ/L (3.5-5.1); SODIUM LEVEL 140 MEQ/L (136-145)
[2022-09-23] MEDS: MAG SULF 1GM/100ML (MAG RUN) 1 GM in IV 1 EA IV SCH ×2 (07:51→09:13)
[2022-09-23] MEDS: VITAMIN D 1,000 INTERNATIONAL UNITS TABLET PO SCH (09:14)
[2022-09-23] MEDS: ENOXAPARIN 40MG/0.4ML SYRINGE (J1650 PER 10MG) SC SCH (09:14)
[2022-09-23] MEDS: ASPIRIN 81MG ENTERIC TABLET PO SCH (09:14)
[2022-09-23] MEDS: ATORVASTATIN 20 MG TAB PO SCH (09:14)
[2022-09-23] MEDS: SERTRALINE HCL 25 MG TABLET PO SCH (09:14)
[2022-09-23] MEDS: CETIRIZINE (ZyrTEC) 10 MG TAB PO SCH (09:15)
[2022-09-23] MEDS: PANTOPRAZOLE 40MG TAB (PROTONIX) PO SCH (09:15)
[2022-09-23] MEDS: BENZONATATE 100MG CAPSULE PO SCH ×3 (09:15→20:01)
[2022-09-23] MEDS: allopurinoL 100 MG TAB PO SCH (09:15)
[2022-09-23] MEDS: KCL 10MEQ/100ML SWI (KRUN) 10 MEQ in IV 1 EA IV SCH ×7 (10:13→22:24)
[2022-09-23] MEDS ORDERED: MIRTAZAPINE 15 MG TAB PO ONE (14:50)
[2022-09-23] MEDS: SODIUM CHLORIDE 0.9% INJ 10 ML SYR IV SCH (15:09)
[2022-09-23 17:11] LABS: BLOOD UREA NITROGEN 10 MG/DL (7-18); CALCIUM LEVEL 8.6 MG/DL (8.8-10.2); CARBON DIOXIDE LEVEL 23 MEQ/L (21-32); CHLORIDE LEVEL 106 MEQ/L (98-107); CREATININE FOR GFR 1.08 MG/DL (0.70-1.30); GLOMERULAR FILTRATION RATE > 60.0 (>49); GLUCOSE, FASTING 87 MG/DL (70-100); POTASSIUM SERUM 3.2 MEQ/L (3.5-5.1); SODIUM LEVEL 138 MEQ/L (136-145)
[2022-09-23] MEDS: SENOKOT S TAB PO SCH (19:50)
[2022-09-23] MEDS: QUEtiapine FUMERATE XR 50MG TABER PO SCH (20:01)
[2022-09-24] VITALS (8 sets, daily range): BP systolic 90–126; BP diastolic 50–73
[2022-09-24 06:20] LABS: HEMATOCRIT 39.6 % (42.0-52.0); HEMOGLOBIN 12.8 g/dl (13.5-17.5); MEAN CORPUSCULAR HEMOGLOBIN 29.2 pg (27.0-33.0); MEAN CORPUSCULAR HGB CONC 32.3 g/dl (32.0-36.5); MEAN CORPUSCULAR VOLUME 90.2 fl (80.0-96.0); PLATELET COUNT, AUTOMATED 191 10^3/uL (150-450); RED BLOOD COUNT 4.39 10^6/uL (4.30-6.10); WHITE BLOOD COUNT 6.4 10^3/uL (4.0-10.0)
[2022-09-24] MEDS: KCL 10MEQ/100ML SWI (KRUN) 10 MEQ in IV 1 EA IV SCH ×3 (06:40→10:06)
[2022-09-24 07:32] LABS: BLOOD UREA NITROGEN 10 MG/DL (7-18); CALCIUM LEVEL 8.3 MG/DL (8.8-10.2); CARBON DIOXIDE LEVEL 24 MEQ/L (21-32); CHLORIDE LEVEL 107 MEQ/L (98-107); CREATININE FOR GFR 1.02 MG/DL (0.70-1.30); GLOMERULAR FILTRATION RATE > 60.0 (>49); GLUCOSE, FASTING 75 MG/DL (70-100); MAGNESIUM LEVEL 1.9 MG/DL (1.8-2.4); POTASSIUM SERUM 3.7 MEQ/L (3.5-5.1); SODIUM LEVEL 140 MEQ/L (136-145)
[2022-09-24] MEDS: allopurinoL 100 MG TAB PO SCH (09:09)
[2022-09-24] MEDS: SERTRALINE HCL 25 MG TABLET PO SCH (09:09)
[2022-09-24] MEDS: CETIRIZINE (ZyrTEC) 10 MG TAB PO SCH (09:09)
[2022-09-24] MEDS: ATORVASTATIN 20 MG TAB PO SCH (09:09)
[2022-09-24] MEDS: BENZONATATE 100MG CAPSULE PO SCH ×3 (09:09→21:00)
[2022-09-24] MEDS: ASPIRIN 81MG ENTERIC TABLET PO SCH (09:09)
[2022-09-24] MEDS: ENOXAPARIN 40MG/0.4ML SYRINGE (J1650 PER 10MG) SC SCH (09:09)
[2022-09-24] MEDS: PANTOPRAZOLE 40MG TAB (PROTONIX) PO SCH (09:09)
[2022-09-24] MEDS: VITAMIN D 1,000 INTERNATIONAL UNITS TABLET PO SCH (09:09)
[2022-09-24] MEDS ORDERED: MIRT1TAB16 PO (09:59)
[2022-09-24] MEDS ORDERED: ISOVUE-370 76% 100ML VIAL As Ordered ONE (12:46)
[2022-09-24] MEDS: SODIUM CHLORIDE 0.9% INJ 10 ML SYR IV SCH (17:01)
[2022-09-24] MEDS: SENOKOT S TAB PO SCH (19:50)
[2022-09-24] MEDS: QUEtiapine FUMERATE XR 50MG TABER PO SCH (21:00)
[2022-09-24] MEDS: MIRTAZAPINE 15 MG TAB PO SCH (21:00)
[2022-09-25 02:00] VITALS: BP 104/60
[2022-09-25 06:00] VITALS: BP 105/62
[2022-09-25 08:26] LABS: BASO % 0.3 % (0.0-1.0); EOS # 0.2 10^3/uL (0.0-0.5); EOS % 3.1 % (0.0-3.0); HEMATOCRIT 38.6 % (42.0-52.0); HEMOGLOBIN 12.7 g/dl (13.5-17.5); LYMPH # 1.5 10^3/uL (1.5-5.0); LYMPH % 22.3 % (24.0-44.0); MEAN CORPUSCULAR HEMOGLOBIN 29.3 pg (27.0-33.0); MEAN CORPUSCULAR HGB CONC 32.9 g/dl (32.0-36.5); MEAN CORPUSCULAR VOLUME 89.1 fl (80.0-96.0); MONO # 0.7 10^3/uL (0.0-0.8); MONO % 10.5 % (2.0-8.0); NEUTROPHILS # 4.3 10^3/uL (1.5-8.5); NEUTROPHILS % 63.7 % (36.0-66.0); PLATELET COUNT, AUTOMATED 213 10^3/uL (150-450); RED BLOOD COUNT 4.33 10^6/uL (4.30-6.10); WHITE BLOOD COUNT 6.7 10^3/uL (4.0-10.0)
[2022-09-25 08:58] LABS: BLOOD UREA NITROGEN 13 MG/DL (7-18); CALCIUM LEVEL 8.5 MG/DL (8.8-10.2); CARBON DIOXIDE LEVEL 23 MEQ/L (21-32); CHLORIDE LEVEL 109 MEQ/L (98-107); CREATININE FOR GFR 0.95 MG/DL (0.70-1.30); GLOMERULAR FILTRATION RATE > 60.0 (>49); GLUCOSE, FASTING 65 MG/DL (70-100); SODIUM LEVEL 141 MEQ/L (136-145)
[2022-09-25] MEDS: CETIRIZINE (ZyrTEC) 10 MG TAB PO SCH ×2 (09:00→09:25)
[2022-09-25] MEDS: ASPIRIN 81MG ENTERIC TABLET PO SCH ×2 (09:00→09:25)
[2022-09-25] MEDS: allopurinoL 100 MG TAB PO SCH ×2 (09:00→09:25)
[2022-09-25] MEDS: ATORVASTATIN 20 MG TAB PO SCH ×2 (09:00→09:26)
[2022-09-25] MEDS: ENOXAPARIN 40MG/0.4ML SYRINGE (J1650 PER 10MG) SC SCH ×2 (09:00→09:25)
[2022-09-25] MEDS: SERTRALINE HCL 25 MG TABLET PO SCH ×2 (09:00→09:25)
[2022-09-25] MEDS: VITAMIN D 1,000 INTERNATIONAL UNITS TABLET PO SCH ×2 (09:00→09:25)
[2022-09-25] MEDS: PANTOPRAZOLE 40MG TAB (PROTONIX) PO SCH ×2 (09:00→09:25)
[2022-09-25] MEDS: BENZONATATE 100MG CAPSULE PO SCH ×4 (09:00→20:57)
[2022-09-25 09:54] VITALS: BP 103/64
[2022-09-25 14:06] VITALS: BP 115/68
[2022-09-25] MEDS: SODIUM CHLORIDE 0.9% INJ 10 ML SYR IV SCH (17:53)
[2022-09-25 18:00] VITALS: BP 115/60
[2022-09-25] MEDS: QUEtiapine FUMERATE XR 50MG TABER PO SCH (20:27)
[2022-09-25] MEDS: MIRTAZAPINE 15 MG TAB PO SCH (20:27)
[2022-09-25] MEDS: SENOKOT S TAB PO SCH (20:27)
[2022-09-25 22:00] VITALS: BP 111/61
[2022-09-26 02:00] VITALS: BP 115/65
[2022-09-26 05:01] VITALS: BP 111/54
[2022-09-26 05:35] VITALS: BP 91/59
[2022-09-26 06:39] LABS: BLOOD UREA NITROGEN 11 MG/DL (7-18); CALCIUM LEVEL 8.9 MG/DL (8.8-10.2); CARBON DIOXIDE LEVEL 23 MEQ/L (21-32); CHLORIDE LEVEL 107 MEQ/L (98-107); CREATININE FOR GFR 0.74 MG/DL (0.70-1.30); GLOMERULAR FILTRATION RATE > 60.0 (>49); GLUCOSE, FASTING 59 MG/DL (70-100); POTASSIUM SERUM 3.6 MEQ/L (3.5-5.1); SODIUM LEVEL 140 MEQ/L (136-145)
[2022-09-26] MEDS: BENZONATATE 100MG CAPSULE PO SCH ×2 (08:46→16:00)
[2022-09-26] MEDS: ATORVASTATIN 20 MG TAB PO SCH (08:46)
[2022-09-26] MEDS: PANTOPRAZOLE 40MG TAB (PROTONIX) PO SCH (08:46)
[2022-09-26] MEDS: ASPIRIN 81MG ENTERIC TABLET PO SCH (08:46)
[2022-09-26] MEDS: ENOXAPARIN 40MG/0.4ML SYRINGE (J1650 PER 10MG) SC SCH (08:47)
[2022-09-26] MEDS: CETIRIZINE (ZyrTEC) 10 MG TAB PO SCH (08:47)
[2022-09-26] MEDS: allopurinoL 100 MG TAB PO SCH (08:47)
[2022-09-26] MEDS: SERTRALINE HCL 25 MG TABLET PO SCH (08:47)
[2022-09-26] MEDS ORDERED: DEXTROSE 50% 50 ML SYRINGE IV STA (08:47)
[2022-09-26] MEDS: VITAMIN D 1,000 INTERNATIONAL UNITS TABLET PO SCH (08:47)
[2022-09-26 11:00] VITALS: BP 109/70
[2022-09-26] MEDS: SODIUM CHLORIDE 0.9% INJ 10 ML SYR IV SCH (18:17)
[2022-09-26] MEDS ORDERED: MORPHINE 2 MG/ML 1ML VIAL IV PRN (18:50)
[2022-09-26] MEDS ORDERED: LORazepam 2 MG/ML VIAL IV PRN (18:50)
[2022-09-26] MEDS ORDERED: HYOSCYAMINE SULFATE 0.125 MG SUBL TABLET PO PRN (18:50)
[2022-09-27] MEDS: SODIUM CHLORIDE 0.9% INJ 10 ML SYR IV SCH (17:48)
[2022-09-28] MEDS: SODIUM CHLORIDE 0.9% INJ 10 ML SYR IV SCH (15:44)
[2022-09-29] MEDS: SODIUM CHLORIDE 0.9% INJ 10 ML SYR IV SCH (17:21)
[2022-09-29] MEDS: SODIUM CHLORIDE 0.9% INJ 10 ML SYR IV PRN (21:40)
[2022-09-30] MEDS ORDERED: ATIV1TAB10 PO (06:11)
[2022-09-30] MEDS ORDERED: MORP1SOL5 PO (06:11)
[2022-09-30] MEDS ORDERED: HYOS125TA PO (06:11)
== END 2022-09-30 11:58 | disposition hospice, home (50) | DRG 683 ==
LOC: M ED 11:37 → M ED INP 14:45 → ENRESERV 15:29 → M MSPAV 16:46
PROVIDERS: ADMIT Internal Medicine; ATTEND Internal Medicine
PROC: 02HV33Z Insertion of Infusion Device into Superior Vena Cava, Percutaneous Approach (ICD-10-PCS; principal; 2022-09-19 15:00)
DX: N17.9 Acute kidney failure, unspecified (principal); K55.1 Chronic vascular disorders of intestine; F03.918 Unspecified dementia, unspecified severity, with other behavioral disturbance; E87.0 Hyperosmolality and hypernatremia; R13.10 Dysphagia, unspecified; J44.9 Chronic obstructive pulmonary disease, unspecified; I10 Essential (primary) hypertension; I35.8 Other nonrheumatic aortic valve disorders; E86.0 Dehydration; F10.20 Alcohol dependence, uncomplicated; Z51.5 Encounter for palliative care; Z66 Do not resuscitate; D72.829 Elevated white blood cell count, unspecified; D75.1 Secondary polycythemia; K21.9 Gastro-esophageal reflux disease without esophagitis; M10.9 Gout, unspecified; I70.0 Atherosclerosis of aorta; R11.14 Bilious vomiting; R45.1 Restlessness and agitation; E87.6 Hypokalemia; F32.9 Major depressive disorder, single episode, unspecified; Z87.891 Personal history of nicotine dependence; Z86.73 Personal history of transient ischemic attack (TIA), and cerebral infarction without residual deficits; Z95.828 Presence of other vascular implants and grafts; Z86.711 Personal history of pulmonary embolism; Z79.82 Long term (current) use of aspirin; Z79.899 Other long term (current) drug therapy